=== PATIENT | male | born 1960 | race Caucasian/White ===

== ENCOUNTER 2016-03-23 10:10 | Emergency (ER) | payer OTHER ==
[2016-03-23 10:19] VITALS: TEMP 97.5
[2016-03-23] MEDS ORDERED: DIPH,PERTUS(ACELL)TETVAC-LF 0.5 ML VIAL IM ONE (10:27)
--- NOTE | 2016-03-23 11:12 | ED ---
General Adult HPI - General Chief complaint: Wound/Laceration Stated complaint: eye injury Time Seen by Provider: 03/23/16 10:23 Source: patient, RN notes reviewed, old records reviewed Mode of arrival: ambulatory Limitations: no limitations - History of Present Illness Initial comments: Chief complaint history of present illness a 55-year-old male reports that he was hit in the left eye and upper cheek with a hockey puck while playing hockey actually 90 minutes ago. The patient presents with a Thomas laceration 2 cm below the left eye. The patient has significant swelling around the upper and lower lids. The patient was asked to open the lids with his fingers. There is evidence of home people and hyphema. Patient states he can only see light at this time. - Related Data Home Medications Medication Instructions Recorded Confirmed Insulin Aspart [NovoLOG] See Protocol SQ AC-TID 10/29/15 03/23/16 Insulin Glargine [Lantus] 22 unit SQ HS 10/29/15 03/23/16 Levothyroxine Sodium [Synthroid] 175 mcg PO DAILY 10/29/15 03/23/16 Allergies Allergy/AdvReac Type Severity Reaction Status Date / Time No Known Allergies Allergy Verified 03/23/16 10:26 Review of Systems ROS Statement: Those systems with pertinent positive or pertinent negative responses have been documented in the HPI. Review of systems patient has pain around the left eye he has what appears to be a bone pupil patient will have a stat CAT scan of the orbits. Patient will have the tooth mL laceration cleaned and sutured patient be transferred to an eye [place] for further evaluation and management can be performed. Patient denies any other problems denies any chest pain shortness breath GI/ problems. All systems were otherwise reviewed. Past medical problems diabetes and thyroid disorder. Review of her past chart proximally one year ago the patient was hit just below the left eye with a hockey stick that laceration was repaired. He declined CAT scan of the eye at that time but there was no report of orbital injury. Patient states he has been to the [facility] [place] in [place] because of a detached retina he thinks was on the right eye. Past problems include orthopedic surgeries well. Denies any ALLERGIES. Nonsmoker. ROS Other: All systems not noted in ROS Statement are negative. Past Medical History Past Medical History: Diabetes Mellitus, Thyroid Disorder History of Any Multi-Drug Resistant Organisms: None Reported Past Surgical History: Orthopedic Surgery Past Psychological History: No Psychological Hx Reported Smoking Status: Never smoker Past Alcohol Use History: None Reported Past Drug Use History: None Reported General Exam - General Exam Comments Initial Comments: General: The patient is awake and alert, with a severe left eye injury from a hockey puck within the past 90 minutes. Patient advised not to touch his eye ball. Vital signs show temperature 97.5 pulse 70 respiratory rate 20 pulse ox 90% room air blood pressure 133/81 elevated systolic noted. The patient is in pain. Eye: Examination of the eyes find a ride to be normal. Left eye has a laceration on the cheek approximately 2 cm below the eyeball. His upper and lower lids have significant hematoma causing to stay shut. The patient cried lids up and down so directed examination to be made of the eye. Evidence of blown pupil and hyphema. Patient states she's not able to count fingers but he can see the light being shined into his eye. Ears, nose, mouth and throat: Laceration left cheek. Neck: The neck is supple, no complaint of neck pain. Cardiovascular: No complaint chest pain or palpitations. Respiratory: No wheezing, no coughing, no complaint of shortness of breath Gastrointestinal: No complaint of any nausea vomiting or abdominal pain. Back: No back pain Musculoskeletal: Upper and lower extremities normal full range of motion without pain or problems. Neurological: No neuro deficits. Limitations: no limitations Course Vital Signs 03/23/16 10:17 Temperature 97.5 F L Pulse Rate 70 Respiratory 20 Rate Blood Pressure 133/81 O2 Sat by Pulse 98 Oximetry Procedures - Procedures Initial comment: Procedure; 1% Xylocaine was used to numb the 2 cm laceration under the left eyelid. Clean washed with Betadine. Wound edges were approximated with 5 sutures simple, 6-0 nylon. Hemostasis obtained. Sutures out in [address] Sales Medical Decision Making - Medical Decision Making Medical decision making; patient had CAT scan of his facial bones specifically the orbits. The radiologist's final impression is moderate to severe left- sided preseptal hematoma. Left lens dislocation is noted. No acute orbital wall fracture identified. #2 age indeterminant zygomatic arch fractures bilaterally, suspect old. Cannot exclude nondisplaced acute linear fracture anterolateral left maxillary sinus wall. As read by Dr. salas Medical decision-making [facility] was called and spoke with Thad Grace who accepts the patient for transfer to the facility for evaluation and treatment of a severe left eye injury. CAT scan report was referred concerning the left lens dislocation but no acute orbital floor fracture. The patient can see only light. Patient's laceration was repaired. Patient be kept nothing by mouth for short ride down and then disposition will be determined at that [facility]. Disposition Clinical Impression: Traumatic injury of globe of left eye, Laceration of cheek Disposition: OTHER INSTITUTION NOT DEFINED Condition: Serious Additional Instructions: Patient be transferred directly depressed [facility] for evaluation and management of a severe left globe injury - Out of Hospital Transfer - Req. Specs Out of Hospital Transfer - Requested Specifics: Other Emergency Center ([facility])
--- NOTE | 2016-03-23 11:41 | CT ---
EXAMINATION TYPE: CT orbits wo con DATE OF EXAM: 03/23/2016 11:09 AM COMPARISON: NONE HISTORY: Lt eye injury with pain CT DLP: 339.4 mGycm Automated exposure control for dose reduction was used. FINDINGS: Nasal bones and bridge are intact. Nasal septum is deviated to right of midline in the deep inferior aspect without acute fracture. There is nondisplaced fracture involving right zygomatic arch age indeterminate. There is minimally d isplaced comminuted fracture left zygomatic arch is age indeterminate without distinct soft tissue sw elling at this level. The orbital floors and pratt are intact bilaterally. There is marked preseptal hematoma on the left. There is left-sided lens dislocation into the posterior chamber. The lens shape is maintained. Intrac onal fat is preserved bilaterally. Suspect nondisplaced comminuted fracture involving the anterolateral left maxillary sinus wall with s ome asymmetric lucent areas identified. There is 1 cm mucous retention cyst or polyp in the posterior left maxillary sinus. Remainder paranasal sinuses are clear. IMPRESSION: 1. MODERATE TO SEVERE LEFT-SIDED PRESEPTAL HEMATOMA. LEFT LENS DISLOCATION IS NOTED. NO ACUTE ORBITAL WALL FRACTURE IDENTIFIED. 2. AGE-INDETERMINATE ZYGOMATIC ARCH FRACTURES BILATERALLY, SUSPECTED OLD. CANNOT EXCLUDE NONDISPLACED ACUTE LINEAR FRACTURE ANTEROLATERAL LEFT MAXILLARY SINUS WALL.
[2016-03-23 12:27] VITALS: BP 153/89; PULSE 49; RESP 15
== END 2016-03-23 13:08 | disposition other institution (70) ==
LOC: EC 10:10
DX: S01.412A Laceration without foreign body of left cheek and temporomandibular area, initial encounter (principal); S05.12XA Contusion of eyeball and orbital tissues, left eye, initial encounter; H57.04 Mydriasis; W21.220A Struck by ice hockey puck, initial encounter; Y93.22 Activity, ice hockey; E07.9 Disorder of thyroid, unspecified; E11.9 Type 2 diabetes mellitus without complications; Z79.4 Long term (current) use of insulin; Z23 Encounter for immunization
CPT/HCPCS: 12011; 70480; 90471; 99285

== ENCOUNTER 2017-11-12 09:42 | Emergency (ER) | payer OTHER, MEDICARE ==
[2017-11-12 09:54] VITALS: RESP 18
[2017-11-12] MEDS ORDERED: HYDROcodone/APAP 7.5-325MG 1 EACH TAB PO ONE (10:24)
--- NOTE | 2017-11-12 10:44 | ED ---
Back Pain HPI - General Chief Complaint: Back Pain/Injury Stated Complaint: back injury Time Seen by Provider: 11/12/17 09:54 Source: patient Limitations: no limitations - History of Present Illness Initial Comments: 57-year-old male with past medical history of type 1 diabetes and hypothyroidism presenting today for chief complaint of left-sided rib pain. Patient states that there is a night he was at hockey when he was hit in the left lower back with a stick. Patient noticed immediate pain however he states he did not fall and continue play that evening. Patient denies any shortness of breath. Pain does admit to pain with deep inspiration at the location of contact with sick. Patient denies chest pain. Patient states the pain has been increasing for the past 2 days, making it difficult to sleep laying on the left side. Patient states that his felt the area where he was hit with a stick and felt as though there was "a loose rib", she could hear crunching. Patient denies any recent fever, chills, shortness of breath, low back pain, abdominal pain, nausea or vomiting, numbness or tingling, dysuria or hematuria, constipation or diarrhea, headaches or visual changes, or any other complaints. Patient denies taking any pain medication for the pain. Upon arrival pt VS WNL , 99% on RA. - Related Data Home Medications Medication Instructions Recorded Confirmed Insulin Aspart [NovoLOG] See Protocol SQ AC-TID 10/29/15 03/23/16 Insulin Glargine [Lantus] 22 unit SQ HS 10/29/15 03/23/16 Levothyroxine Sodium [Synthroid] 175 mcg PO DAILY 10/29/15 03/23/16 Previous Rx's Medication Instructions Recorded Ibuprofen [Motrin] 800 mg PO Q6H PRN 7 Days #28 tab 11/12/17 Allergies Allergy/AdvReac Type Severity Reaction Status Date / Time No Known Allergies Allergy Verified 11/12/17 09:54 Review of Systems ROS Statement: Those systems with pertinent positive or pertinent negative responses have been documented in the HPI. ROS Other: All systems not noted in ROS Statement are negative. Constitutional: Denies: fever, chills, night sweats ENT: Denies: ear pain, throat pain Respiratory: Denies: cough, dyspnea, wheezes, hemoptysis, stridor Cardiovascular: Denies: chest pain, palpitations, dyspnea on exertion Endocrine: Denies: fatigue Gastrointestinal: Denies: abdominal pain, nausea, vomiting, diarrhea, constipation, hematemesis, melena, hematochezia Genitourinary: Denies: urgency, dysuria, frequency, hematuria, discharge Musculoskeletal: Reports: as per HPI (left sided midback pain increases with palpatino), myalgia (at site of contact with stick left midback) Skin: Denies: rash, lesions Neurological: Denies: headache, weakness, numbness, paresthesias, confusion ( left sided low back pain reproducible to pain ) Past Medical History Past Medical History: Diabetes Mellitus, Thyroid Disorder History of Any Multi-Drug Resistant Organisms: None Reported Past Surgical History: Orthopedic Surgery Additional Past Surgical History / Comment(s): eye surgery Past Psychological History: No Psychological Hx Reported Smoking Status: Never smoker Past Alcohol Use History: None Reported Past Drug Use History: None Reported General Exam - General Exam Comments Initial Comments: General: The patient is awake and alert, in no distress, and does not appear acutely ill. Eye: Pupils are equal, round and reactive to light, extra-ocular movements are intact. No nystagmus. There is normal conjunctiva bilaterally. No signs of icterus. Ears, nose, mouth and throat: There are moist mucous membranes and no oral lesions. Neck: The neck is supple, there is no tenderness or JVD. Cardiovascular: There is a regular rate and rhythm. No murmur, rub or gallop is appreciated. Respiratory: Lungs are clear to auscultation, respirations are non-labored, breath sounds are equal. No wheezes, stridor, rales, or rhonchi. Gastrointestinal: Soft, non-distended, non-tender abdomen without masses or organomegaly noted. There is no rebound or guarding present. No CVA tenderness. Bowel sounds are unremarkable. Musculoskeletal: Normal ROM, no tenderness. Strength 5/5. Sensation intact. Pulses equal bilaterally 2+. Neurological: A&O x 3. CN II-XII intact, There are no obvious motor or sensory deficits. Coordination appears grossly intact. Speech is normal. Skin: Skin is warm and dry and no rashes or lesions are noted. No ecchymosis, erythema of the back upon inspection however there is pain to palpation left mid back along the ribs laterally. Psychiatric: Cooperative, appropriate mood & affect, normal judgment. Limitations: no limitations Course Vital Signs 11/12/17 09:51 Temperature 98 F Pulse Rate 65 Respiratory 18 Rate Blood Pressure 128/84 O2 Sat by Pulse 99 Oximetry Medical Decision Making - Medical Decision Making Pt given [place] for pain mgmt. CXR and left sided ribs XR obtained revealing no definitive rib fracture, XR reviewed by myself and Dr. Castellano who agrees with impression. Given hx and symptoms I feel pt has a rib contusion from trauma. Patient was given instruction to ice area take ibuprofen and Tylenol for pain management as needed. Patient was given prescription for ibuprofen 800mg. She agrees the plan. Patient discharged in stable condition. Disposition Clinical Impression: Rib contusion Disposition: HOME SELF-CARE Condition: Good Instructions: Rib Contusion (ED) Additional Instructions: Please use medication as discussed. Please follow-up with family doctor in the next 2 days of symptoms have not improved. Please return to emergency room if the symptoms increase or worsen or for any other concerns, as discussed. Prescriptions: Ibuprofen [Motrin] 800 mg PO Q6H PRN 7 Days #28 tab PRN Reason: Pain Is patient prescribed a controlled substance at d/c from ED?: No Referrals: [facility] [Primary Care Provider] - 1-2 days Time of Disposition: 12:35
--- NOTE | 2017-11-12 12:03 | XR ---
EXAMINATION TYPE: XR chest 2V DATE OF EXAM: 11/12/2017 HISTORY: Pain. REFERENCE: NONE. FINDINGS: The lungs are clear. Pleural space are clear. The heart is not enlarged. No displaced rib f racture is seen. No pneumothorax is seen. IMPRESSION: NORMAL CHEST.
--- NOTE | 2017-11-12 12:04 | XR ---
EXAMINATION TYPE: XR ribs LT , 4 VIEWS DATE OF EXAM ORDERED: 11/12/2017 HISTORY: Pain. COMPARISON: None. FINDINGS: There is a slight cortical irregularity involving the left third rib posterior laterally. No definite fracture is seen. The underlying lung is unremarkable. IMPRESSION: NO DEFINITE RIB FRACTURE.
[2017-11-12 12:45] VITALS: BP 130/82; PULSE 70; TEMP 98
== END 2017-11-12 12:45 | disposition home or self-care (01) ==
LOC: EC 09:42
DX: S20.212A Contusion of left front wall of thorax, initial encounter (principal); M54.5 Low back pain; E11.9 Type 2 diabetes mellitus without complications; E07.9 Disorder of thyroid, unspecified; Z79.4 Long term (current) use of insulin; Z79.899 Other long term (current) drug therapy; W21.210A Struck by ice hockey stick, initial encounter; Y93.22 Activity, ice hockey
CPT/HCPCS: 71046; 99283

== ENCOUNTER → 2021-03-04 | Outpatient (CLI) | payer OTHER ==
[2021-03-04 10:32] LABS: Basophils # (A) 0.1 k/uL (0-0.2); Basophils % (A) 1 %; Eosinophils # (A) 0.2 k/uL (0-0.7); Eosinophils % (A) 4 %; HCT 46.6 % (39.0-53.0); HGB 14.8 gm/dL (13.0-17.5); Lymphocytes # (A) 1.9 k/uL (1.0-4.8); Lymphocytes % (A) 32 %; MCH 31.8 pg (25.0-35.0); MCHC 31.7 g/dL (31.0-37.0); MCV 100.1 fL (80.0-100.0); Mean Platelet Volume 7.6; Monocytes # (A) 0.4 k/uL (0-1.0); Monocytes % (A) 7 %; Neutrophils # (A) 3.2 k/uL (1.3-7.7); Neutrophils % (A) 54 %; Platelet Count 387 k/uL (150-450); RBC 4.65 m/uL (4.30-5.90); RDW 12.9 % (11.5-15.5); WBC 5.9 k/uL (3.8-10.6)
[2021-03-04 10:48] LABS: ALT 26 U/L (4-49); AST 36 U/L (17-59); African American GFR (CKD) >90 (>60 ml/min/1.73 sqM); Albumin 4.9 g/dL (3.5-5.0); Alkaline Phosphatase 105 U/L (38-126); Anion Gap 10 mmol/L; Blood Urea Nitrogen 8 mg/dL (9-20); Calcium 10.1 mg/dL (8.4-10.2); Carbon Dioxide 29 mmol/L (22-30); Chloride 103 mmol/L (98-107); Glucose 83 mg/dL (74-99); Non-African American GFR(CKD) >90 (>60 ml/min/1.73 sqM); Potassium 4.8 mmol/L (3.5-5.1); Sodium 142 mmol/L (137-145); Total Bilirubin 0.8 mg/dL (0.2-1.3); Total Protein 8.9 g/dL (6.3-8.2)
--- NOTE | 2021-03-04 11:40 | CT ---
EXAMINATION TYPE: CT soft tissue neck wo/w con, CT chest w con DATE OF EXAM: 03/04/2021 HISTORY: Head and neck cancer. COMPARISON: NONE CT DLP: 1964 mGycm. Automated Exposure Control for Dose Reduction was Utilized. TECHNIQUE: CT scan of the neck is performed without and with IV Contrast (accession [id number]), with IV Contrast (accession [id number]), patient injected with 100ml mL of Isovue 300, axial images are obta ined, coronal and sagittal reformatted images are reviewed. CT scan thorax performed with IV contrast . FINDINGS: Neck: Airway: Heterogeneous thickened tissue at the base of tongue greater on the left first right side axi al image 34 series 7 for reference. This extends into the superior aspect of the vallecula as site of the laryngeal tonsils. Piriform sinuses inferior to this appear within normal limits. Somewhat small size thyroid gland. Mild emphysematous change of visualized upper lungs. Airway remains patent. Parotid/submandibular glands: Slight anterior displacement of left submandibular gland due to adjacen t masses or adenopathy. Carotid/Vascular Structures: Suboptimal bolus on postcontrast images Osseous Structures: Moderate disc space narrowing C5-C6 and C6-C7 levels. Other: Dependent fluid in the left maxillary sinus. Partial visualization of cortical victorino in the bilateral globes. Poor contrast bolus with multiple masses suspected adenopathy in the left neck, largest anteriorly a t level of hyoid bone measures 3.6 x 2.2 cm axial series 7 image 41. There is extension down to the s upraclavicular level on the left present with round 1.1 cm lymph node at level of thyroid gland axial image 59. CHEST: LUNGS: Mild underlying emphysematous change. No suspicious nodules or masses. Nonspecific 7 mm grades 1 thru 6 visiting teacher ior right upper lobe nodule axial image 26. There is 7 x 3 mm elongated nodule axial image 23 corresp onding to sagittal image 67. No pleural effusion or pneumothorax seen bilaterally. There is 3 mm poss ibly calcified nodule right upper lobe laterally axial image 18 MEDIASTINUM: There are no greater than 1 cm hilar or mediastinal lymph nodes. No cardiomegaly or pe ricardial effusion is seen. OTHER: Mild multilevel spurring in the thoracic spine. 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 Marked abnormal left-sided neck adenopathy noted as detailed above. Nonspecific r ight upper lung pulmonary nodules including a suspicious 7 mm right upper lobe pulmonary nodule. Advi se PET CT follow-up to further evaluate
== END | disposition home or self-care (01) ==
LOC: RADCTMAIN 09:51
PROVIDERS: ATTEND Internal Medicine Hematology & Oncology
DX: C76.0 Malignant neoplasm of head, face and neck (principal); C01 Malignant neoplasm of base of tongue; R91.8 Other nonspecific abnormal finding of lung field; R59.0 Localized enlarged lymph nodes; E03.9 Hypothyroidism, unspecified; E11.9 Type 2 diabetes mellitus without complications
CPT/HCPCS: 80053; 85025; 70492; 71260; 36415; Q9967

== ENCOUNTER → 2021-07-23 | Outpatient (CLI) | payer OTHER ==
--- NOTE | 2021-07-23 15:26 | PE ---
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 A localization and attenuation correction CT was also performed, small field-of -view images obtained through the head and neck. Correlation to outside PET/CT dated 01/04/2021 Average mediastinal uptake SUV 1.2, average liver uptake SUV 1.6 NECK and CHEST: There is marked improvement in the adenopathy seen on previous exam within the left n preet, no associated hypermetabolic uptake is present on today's exam along this distribution. There is some uptake present towards the region of the piriform sinus on the left is asymmetric, there is sammy e suggestion of soft tissue swelling at this level, SUV is 4.6. There is no evident lung mass. There is a subcentimeter nodule in the right upper lobe axial image #7 2, stable, additional lung nodule present axial image 84 the right upper lobe is stable. No associate d hypermetabolic uptake. There is no pleural or pericardial effusion. No endobronchial lesion. Anteri or left third rib shows some mild uptake, there may be nonunited fracture at the costochondral juncti on. SUV 7 2. No mediastinal, axillary, or hilar adenopathy, no evident supraclavicular adenopathy. ABDOMEN: There is no suspicious uptake. No evident liver mass or retroperitoneal adenopathy. No ascit es. Osseous structures show no suspicious uptake. IMPRESSION: Indeterminate uptake towards the base the tongue on the left as described, consider direc t visualization. There is improvement in patient's adenopathy.
== END | disposition home or self-care (01) ==
LOC: RADPETMAIN 08:24
PROVIDERS: ATTEND Radiology Radiation Oncology
DX: C01 Malignant neoplasm of base of tongue (principal); C77.0 Secondary and unspecified malignant neoplasm of lymph nodes of head, face and neck; Z79.899 Other long term (current) drug therapy
CPT/HCPCS: 78815; A9552

== ENCOUNTER 2021-09-02 11:21 | Emergency (ER) | payer OTHER ==
[2021-09-02 11:29] VITALS: BP 94/44; PULSE 67; RESP 16
[2021-09-02] MEDS ORDERED: SODIUM CHLORIDE 0.9% 1,000 ML IV ONE (11:41)
[2021-09-02] MEDS ORDERED: DEXTROSE 50% SYRINGE 50 ML IVP STA (11:46)
[2021-09-02 11:51] LABS: Glucose,Whole Blood 38 mg/dL (70-110)
--- NOTE | 2021-09-02 12:12 | ED ---
Altered Mental Status HPI - General Chief Complaint: Altered Mental Status Stated Complaint: Fall-Head injury,hypoglycemia Time Seen by Provider: 09/02/21 11:31 Source: patient, EMS, RN notes reviewed Mode of arrival: EMS Limitations: altered mental status - History of Present Illness Initial Comments: This a 61-year-old male presents emergency from EMS from home for altered mental status. Patient reportedly was diaphoretic most of the night, woke up very confused, having bizarre behavior which patient was crawling around on the floor hydrated in the bed, barking like a dog. Patient was loaded and EMS found to have blood sugar of 43 patient was given 1 amp of dextrose and symptoms resolved. It is noted the patient had a fall recently had some head trauma was not evaluated for this. Patient states he does remember having a trauma and states that he took 17 units of insulin last night. Patient states that he has no neck back chest or abdominal pain. Patient does not report any blood thinners. Patient found to be soaking when his clothes, hypothermic. - Related Data Home Medications Medication Instructions Recorded Confirmed INSULIN ASPART (NovoLOG) [NovoLOG] See Protocol SQ AC-TID 10/29/15 09/02/21 Insulin Glargine [Lantus] 24 unit SQ HS 10/29/15 09/02/21 Dorzolamide 2% [Trusopt 2%] 1 drops BOTH EYES BID 09/02/21 09/02/21 Levothyroxine Sodium [Synthroid] 200 mcg PO DAILY 09/02/21 09/02/21 Multivitamins, Thera [Multivitamin 1 tab PO DAILY 09/02/21 09/02/21 (formulary)] Allergies Allergy/AdvReac Type Severity Reaction Status Date / Time No Known Allergies Allergy Verified 09/02/21 14:07 Review of Systems ROS Statement: Those systems with pertinent positive or pertinent negative responses have been documented in the HPI. ROS Other: All systems not noted in ROS Statement are negative. Past Medical History Past Medical History: Diabetes Mellitus, Thyroid Disorder History of Any Multi-Drug Resistant Organisms: None Reported Past Surgical History: Orthopedic Surgery Additional Past Surgical History / Comment(s): eye surgery Past Psychological History: No Psychological Hx Reported Past Alcohol Use History: None Reported Past Drug Use History: None Reported General Exam Limitations: altered mental status General appearance: alert, in no apparent distress Head exam: Present: atraumatic, normocephalic, normal inspection Eye exam: Present: normal appearance, PERRL, EOMI, periorbital swelling, periorbital tenderness (Left periorbital tenderness, ecchymotic). Absent: scleral icterus, conjunctival injection ENT exam: Present: normal exam, normal oropharynx, mucous membranes moist Neck exam: Present: normal inspection, full ROM. Absent: tenderness, meningismus, lymphadenopathy Respiratory exam: Present: normal lung sounds bilaterally. Absent: respiratory distress, wheezes, rales, rhonchi, stridor Cardiovascular Exam: Present: regular rate, normal rhythm, normal heart sounds. Absent: systolic murmur, diastolic murmur, rubs, gallop, clicks GI/Abdominal exam: Present: soft, normal bowel sounds. Absent: distended, tenderness, guarding, rebound, rigid Neurological exam: Present: alert, oriented X3 Skin exam: Present: warm, dry, intact, normal color. Absent: rash Course Vital Signs 09/02/21 11:25 Pulse Rate 67 Respiratory 16 Rate Blood Pressure 94/44 O2 Sat by Pulse 100 Oximetry Medical Decision Making - Medical Decision Making 7-year-old male presented from for altered mental status, hypoglycemia. Patient found to be hypoglycemic in the 40s. Patient Was Given D50. Symptoms Resolved. Patient Did Have Prior Fall in Which She Had Some Acute Processes around His Left Eye. Patient Did Have CT Which Is Unremarkable. 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 Patient Has Extensive History of Cancer, Prior Radiation Chemotherapy. Patient Has Current Baseline Blood Sugar Is 160 Able Tolerate Oral Intake. Patient Was Discharged in Stable Condition Return Parameters Discussed. - Lab Data Result diagrams: 09/02/21 12:26 09/02/21 12:26 Lab Results 09/02/21 09/02/21 09/02/21 Range/Units 11:41 12:11 12:26 WBC 8.4 (3.8-10.6) k/uL RBC 3.97 L (4.30-5.90) m/uL Hgb 13.2 (13.0-17.5) gm/dL Hct 41.0 (39.0-53.0) % MCV 103.2 H (80.0-100.0) fL MCH 33.1 (25.0-35.0) pg MCHC 32.1 (31.0-37.0) g/dL RDW 12.7 (11.5-15.5) % Plt Count 317 (150-450) k/uL MPV 7.1 Neutrophils % 88 % Lymphocytes % 5 % Monocytes % 5 % Eosinophils % 1 % Basophils % 0 % Neutrophils # 7.4 (1.3-7.7) k/uL Lymphocytes # 0.4 L (1.0-4.8) k/uL Monocytes # 0.4 (0-1.0) k/uL Eosinophils # 0.1 (0-0.7) k/uL Basophils # 0.0 (0-0.2) k/uL Macrocytosis Slight PT (9.0-12.0) sec INR (<1.2) APTT (22.0-30.0) sec Sodium (137-145) mmol/L Potassium (3.5-5.1) mmol/L Chloride (98-107) mmol/L Carbon Dioxide (22-30) mmol/L Anion Gap mmol/L BUN (9-20) mg/dL Creatinine (0.66-1.25) mg/dL Est GFR (CKD-EPI)AfAm (>60 ml/min/1.73 sqM) Est GFR (CKD-EPI)NonAf (>60 ml/min/1.73 sqM) Glucose (74-99) mg/dL POC Glucose (mg/dL) 38 L 89 (70-110) mg/dL POC Glu Director Of Institutional Sales ID Yasmine Cruz Mehan Calcium (8.4-10.2) mg/dL Total Bilirubin (0.2-1.3) mg/dL AST (17-59) U/L ALT (4-49) U/L Alkaline Phosphatase (38-126) U/L Ammonia (<30) umol/L Troponin I (0.000-0.034) ng/mL Total Protein (6.3-8.2) g/dL Albumin (3.5-5.0) g/dL Serum Alcohol mg/dL 09/02/21 09/02/21 09/02/21 Range/Units 12:26 12:26 12:26 WBC (3.8-10.6) k/uL RBC (4.30-5.90) m/uL Hgb (13.0-17.5) gm/dL Hct (39.0-53.0) % MCV (80.0-100.0) fL MCH (25.0-35.0) pg MCHC (31.0-37.0) g/dL RDW (11.5-15.5) % Plt Count (150-450) k/uL MPV Neutrophils % % Lymphocytes % % Monocytes % % Eosinophils % % Basophils % % Neutrophils # (1.3-7.7) k/uL Lymphocytes # (1.0-4.8) k/uL Monocytes # (0-1.0) k/uL Eosinophils # (0-0.7) k/uL Basophils # (0-0.2) k/uL Macrocytosis PT 10.9 (9.0-12.0) sec INR 1.0 (<1.2) APTT 24.1 (22.0-30.0) sec Sodium 141 (137-145) mmol/L Potassium 3.8 (3.5-5.1) mmol/L Chloride 105 (98-107) mmol/L Carbon Dioxide 28 (22-30) mmol/L Anion Gap 8 mmol/L BUN 14 (9-20) mg/dL Creatinine 0.80 (0.66-1.25) mg/dL Est GFR (CKD-EPI)AfAm >90 (>60 ml/min/1.73 sqM) Est GFR (CKD-EPI)NonAf >90 (>60 ml/min/1.73 sqM) Glucose 101 H (74-99) mg/dL POC Glucose (mg/dL) (70-110) mg/dL POC Glu Director Of Institutional Sales ID Calcium 9.6 (8.4-10.2) mg/dL Total Bilirubin 0.5 (0.2-1.3) mg/dL AST 40 (17-59) U/L ALT 20 (4-49) U/L Alkaline Phosphatase 89 (38-126) U/L Ammonia (<30) umol/L Troponin I <0.012 (0.000-0.034) ng/mL Total Protein 8.0 (6.3-8.2) g/dL Albumin 4.9 (3.5-5.0) g/dL Serum Alcohol <10 mg/dL 09/02/21 09/02/2109/02/22 Range/Units 12:26 12:33 14:42 WBC (3.8-10.6) k/uL RBC (4.30-5.90) m/uL Hgb (13.0-17.5) gm/dL Hct (39.0-53.0) % MCV (80.0-100.0) fL MCH (25.0-35.0) pg MCHC (31.0-37.0) g/dL RDW (11.5-15.5) % Plt Count (150-450) k/uL MPV Neutrophils % % Lymphocytes % % Monocytes % % Eosinophils % % Basophils % % Neutrophils # (1.3-7.7) k/uL Lymphocytes # (1.0-4.8) k/uL Monocytes # (0-1.0) k/uL Eosinophils # (0-0.7) k/uL Basophils # (0-0.2) k/uL Macrocytosis PT (9.0-12.0) sec INR (<1.2) APTT (22.0-30.0) sec Sodium (137-145) mmol/L Potassium (3.5-5.1) mmol/L Chloride (98-107) mmol/L Carbon Dioxide (22-30) mmol/L Anion Gap mmol/L BUN (9-20) mg/dL Creatinine (0.66-1.25) mg/dL Est GFR (CKD-EPI)AfAm (>60 ml/min/1.73 sqM) Est GFR (CKD-EPI)NonAf (>60 ml/min/1.73 sqM) Glucose (74-99) mg/dL POC Glucose (mg/dL) 104 62 L (70-110) mg/dL POC Glu Director Of Institutional Sales ID Yasmine Cruz Kyle Calcium (8.4-10.2) mg/dL Total Bilirubin (0.2-1.3) mg/dL AST (17-59) U/L ALT (4-49) U/L Alkaline Phosphatase (38-126) U/L Ammonia 20 (<30) umol/L Troponin I (0.000-0.034) ng/mL Total Protein (6.3-8.2) g/dL Albumin (3.5-5.0) g/dL Serum Alcohol mg/dL 09/02/21 09/02/21 09/02/21 Range/Units 14:43 15:07 15:55 WBC (3.8-10.6) k/uL RBC (4.30-5.90) m/uL Hgb (13.0-17.5) gm/dL Hct (39.0-53.0) % MCV (80.0-100.0) fL MCH (25.0-35.0) pg MCHC (31.0-37.0) g/dL RDW (11.5-15.5) % Plt Count (150-450) k/uL MPV Neutrophils % % Lymphocytes % % Monocytes % % Eosinophils % % Basophils % % Neutrophils # (1.3-7.7) k/uL Lymphocytes # (1.0-4.8) k/uL Monocytes # (0-1.0) k/uL Eosinophils # (0-0.7) k/uL Basophils # (0-0.2) k/uL Macrocytosis PT (9.0-12.0) sec INR (<1.2) APTT (22.0-30.0) sec Sodium (137-145) mmol/L Potassium (3.5-5.1) mmol/L Chloride (98-107) mmol/L Carbon Dioxide (22-30) mmol/L Anion Gap mmol/L BUN (9-20) mg/dL Creatinine (0.66-1.25) mg/dL Est GFR (CKD-EPI)AfAm (>60 ml/min/1.73 sqM) Est GFR (CKD-EPI)NonAf (>60 ml/min/1.73 sqM) Glucose (74-99) mg/dL POC Glucose (mg/dL) 61 L 64 L 166 H (70-110) mg/dL POC Glu Director Of Institutional Sales ID Anjana, Suman Dolan, Suman Dolan, Suman Calcium (8.4-10.2) mg/dL Total Bilirubin (0.2-1.3) mg/dL AST (17-59) U/L ALT (4-49) U/L Alkaline Phosphatase (38-126) U/L Ammonia (<30) umol/L Troponin I (0.000-0.034) ng/mL Total Protein (6.3-8.2) g/dL Albumin (3.5-5.0) g/dL Serum Alcohol mg/dL Disposition Clinical Impression: Hypoglycemia Disposition: HOME SELF-CARE Condition: Stable Instructions (If sedation given, give patient instructions): Hypoglycemia in a Person with Diabetes (ED) Additional Instructions: Please return to the Emergency Department if symptoms worsen or any other concerns. Is patient prescribed a controlled substance at d/c from ED?: No Referrals: [facility],Clinic [Primary Care Provider] - 1-2 days Time of Disposition: 15:57
[2021-09-02 12:30] LABS: Glucose,Whole Blood 89 mg/dL (70-110)
[2021-09-02 12:35] LABS: Glucose,Whole Blood 104 mg/dL (70-110)
[2021-09-02 12:41] LABS: Basophils % (A) 0 %; Eosinophils # (A) 0.1 k/uL (0-0.7); Eosinophils % (A) 1 %; HGB 13.2 gm/dL (13.0-17.5); Lymphocytes # (A) 0.4 k/uL (1.0-4.8); Lymphocytes % (A) 5 %; MCH 33.1 pg (25.0-35.0); MCHC 32.1 g/dL (31.0-37.0); MCV 103.2 fL (80.0-100.0); Macrocytosis Slight; Mean Platelet Volume 7.1; Monocytes # (A) 0.4 k/uL (0-1.0); Monocytes % (A) 5 %; Neutrophils # (A) 7.4 k/uL (1.3-7.7); Neutrophils % (A) 88 %; Platelet Count 317 k/uL (150-450); RBC 3.97 m/uL (4.30-5.90); RDW 12.7 % (11.5-15.5); WBC 8.4 k/uL (3.8-10.6)
[2021-09-02 12:56] LABS: ALT 20 U/L (4-49); AST 40 U/L (17-59); African American GFR (CKD) >90 (>60 ml/min/1.73 sqM); Albumin 4.9 g/dL (3.5-5.0); Alcohol <10 mg/dL; Alkaline Phosphatase 89 U/L (38-126); Anion Gap 8 mmol/L; Blood Urea Nitrogen 14 mg/dL (9-20); Calcium 9.6 mg/dL (8.4-10.2); Carbon Dioxide 28 mmol/L (22-30); Chloride 105 mmol/L (98-107); Glucose 101 mg/dL (74-99); Non-African American GFR(CKD) >90 (>60 ml/min/1.73 sqM); Potassium 3.8 mmol/L (3.5-5.1); Sodium 141 mmol/L (137-145); Total Bilirubin 0.5 mg/dL (0.2-1.3)
[2021-09-02 13:04] LABS: Partial Thromboplastin Time 24.1 sec (22.0-30.0); Prothrombin Time 10.9 sec (9.0-12.0)
--- NOTE | 2021-09-02 13:27 | CT ---
EXAMINATION TYPE: CT brain cspine wo con CT DLP: 1367.2 mGycm, Automated exposure control for dose reduction was used. DATE OF EXAM: 09/02/2021 1:00 PM COMPARISON: PET/CT 07/23/2021, CT neck 03/04/2021 CLINICAL INDICATION:Male, 61 years old with history of pain; Fall, head injury, hypoglycemia TECHNIQUE: Brain: Multiple axial CT images of the brain were obtained without IV contrast. Cspine: Axial CT images from the skull base to the inferior aspect of T2 we obtained without intraven ous contrast. Coronal and sagittal reformatted images were also reviewed. FINDINGS: Brain: Extra-axial spaces: No abnormal extra-axial fluid collections. Ventricular system: Within normal limits Cerebral parenchyma: No acute intraparenchymal hemorrhage or mass effect. The reyes-white junction is well differentiated. Cerebellum: Unremarkable. Mass effect: No evidence of midline shift. Intracranial vasculature: unremarkable Soft tissues: Normal. Calvarium/osseous structures: No depressed skull fracture. Paranasal sinuses and mastoid air cells: The mastoid air cells are clear. Minimal because of thickeni ng of the left maxillary sinus. Visualized orbits: Postsurgical changes of both globes. Cervical spine: Fracture: None. Osseous structures: No suspicious osseous lesions. Vertebral alignment: Straightening of the cervical spine which may be due to patient position versus muscle spasm. Spinal canal/Neural Foramina: Mild degenerative changes of the cervical spine most pronounced at C6-C 7 with disc space narrowing, and plate sclerosis, and osteophytosis. Multilevel posterior disc osteop hyte complexes demonstrated without significant effacement of the anterior thecal sac. Neck soft tissues: Prevertebral soft tissues are within normal limits. Similar appearance of left nec k adenopathy and left tongue base soft tissue thickening related to known cancer. Evaluation is limit ed due to dental amalgam and lack of IV contrast. Other: The airway is patent. The lung apices are clear. IMPRESSION: No acute intracranial process. No evidence of cervical spine fracture. Mild multilevel degenerative disc disease. Similar appearance of left neck adenopathy and left tongue base soft tissue thickening related to kno wn cancer compared to prior PET/CT.
[2021-09-02 14:44] LABS: Glucose,Whole Blood 61 mg/dL (70-110)
[2021-09-02 14:44] LABS: Glucose,Whole Blood 62 mg/dL (70-110)
[2021-09-02 15:17] LABS: Glucose,Whole Blood 64 mg/dL (70-110)
[2021-09-02 15:56] LABS: Glucose,Whole Blood 166 mg/dL (70-110)
== END 2021-09-02 16:18 | disposition home or self-care (01) ==
LOC: EC 11:21
DX: E11.649 Type 2 diabetes mellitus with hypoglycemia without coma (principal); E07.9 Disorder of thyroid, unspecified; Z79.890 Hormone replacement therapy; Z79.4 Long term (current) use of insulin
CPT/HCPCS: 36415; 70450; 72125; 80053; 80320; 82140; 84484; 85025; 85610; 85730; 93005; 96361; 96374; 99285

== ENCOUNTER → 2023-08-07 | Outpatient (CLI) | payer OTHER ==
[2023-08-07 13:07] LABS: African American GFR (CKD) >90 (>60 ml/min/1.73 sqM); Blood Urea Nitrogen 15 mg/dL (9-20); Non-African American GFR(CKD) >90 (>60 ml/min/1.73 sqM)
--- NOTE | 2023-08-07 13:45 | CT ---
EXAMINATION TYPE: CT neck chest w con DATE OF EXAM: 08/07/2023 COMPARISON: Head CT 07/23/2021 HISTORY: tongue ca CT DLP: 971 mGycm CONTRAST: CT scan of the neck is performed with IV Contrast, patient injected with 100 mL of Isovue 300. Contrast enhanced CT of the neck was performed from the skull base through the lung apices. AIRWAY: The supraglottic, glottic, and subglottic portions of the airway appear patent and free of mass. No distinct mass of the tongue is identified on this examination. SALIVARY GLANDS: The submandibular and parotid glands are free of mass or inflammatory process. THYROID GLAND: No nodules or masses seen. LYMPH NODES: No adenopathy seen greater than 1cm. OTHER: Vascular structures are patent. No significant degenerative change of the cervical spine. N o abscess seen. IMPRESSION: No evidence for adenopathy or mass of the tongue this time. EXAMINATION TYPE: CT neck chest w con DATE OF EXAM: 08/07/2023 COMPARISON: Head CT 07/23/2021 HISTORY: tongue ca CT DLP: 971 mGycm Automated exposure control for dose reduction was used. CONTRAST: CT scan of the chest is performed with IV Contrast, patient injected with 100 mL of Isovue 300. FINDINGS: LUNGS: There is a large left upper lobe mass measuring 11 x 4 x 12.1 x 7.5 cm with associated volume loss and obstruction of the left upper lobe bronchus. The findings are felt to reflect neoplasm until proven otherwise. Pleural-based nodular density right lower lobe measures 8.3 cm. No additional nodu les or masses are present. MEDIASTINUM: Precarinal adenopathy measures 1.6 cm. Subcarinal adenopathy measures 4.3 x 2.7 cm. Left hilar adenopathy measures 3.6 cm. . No pericardial effusion is seen. Thoracic aorta is of normal caliber. The heart is not enlarged. UPPER ABDOMEN: No significant abnormality appreciated. OTHER: No additional significant abnormality is seen. IMPRESSION: 1. Enlarged left upper lobe mass as discussed above with near complete obstruction of the left upper lobe bronchus and mediastinal and hilar adenopathy. Findings are felt to reflect malignancy until pro tracy otherwise.
== END | disposition home or self-care (01) ==
LOC: RADCTMAIN 12:21
PROVIDERS: ATTEND Radiology Radiation Oncology
DX: C77.0 Secondary and unspecified malignant neoplasm of lymph nodes of head, face and neck (principal); R91.8 Other nonspecific abnormal finding of lung field; C01 Malignant neoplasm of base of tongue; Z85.810 Personal history of malignant neoplasm of tongue; Z92.21 Personal history of antineoplastic chemotherapy; Z79.899 Other long term (current) drug therapy
CPT/HCPCS: 82565; 84520; 70491; 71260; 36415; Q9967

== ENCOUNTER 2023-08-31 10:56 | Day surgery (SDC) | payer OTHER ==
[2023-08-30 10:46] VITALS: BMI 22.7
[~2023-08-31 10:56] MED LIST: LACTATED RINGERS 1,000 ML IV SCH; LIDOCAINE 1% (10MG/ML) FOR IV START INTRADERMA PRN
[2023-08-31 11:29] VITALS: TEMP 97
[2023-08-31] MEDS: IV FLUID CONTINUATION 1,000 ML IV ONE (11:30)
[2023-08-31] MEDS: LACTATED RINGERS 1,000 ML IV SCH (11:40)
[2023-08-31 11:42] LABS: Glucose,Whole Blood 216 mg/dL (70-110)
[2023-08-31] MEDS ORDERED: PROPOFOL 10 MG/ML 20 ML VIAL IV ONE (12:26)
[2023-08-31] MEDS ORDERED: LIDOCAINE 2% (PF) 20 MG/ML 5 ML VIAL ONE (12:26)
[2023-08-31] MEDS ORDERED: SUCCINYLCHOLINE CHLORIDE 200 MG/10 ML VIAL IV ONE (12:26)
[2023-08-31] MEDS ORDERED: fentaNYL (PF) 50 MCG/ML 2 ML AMP ONE (12:26)
[2023-08-31 14:02] LABS: Glucose,Whole Blood 229 mg/dL (70-110)
--- NOTE | 2023-08-31 14:17 | P.PCN ---
Date of Procedure: 08/31/23 Preoperative Diagnosis: Left upper lobe mass Mediastinal lymphadenopathy Postoperative Diagnosis: Left upper lobe mass causing significant obstruction of the anterior segment of the left upper lobe and the superior segment of the lingula due to extrinsic compression and endobronchial involvement Mediastinal lymphadenopathy involving the station 7 and station 10 lymph nodes. Procedure(s) Performed: Flexible bronchoscopy Airway inspection and examination Fluoroscopic guided left upper lobe transbronchial endobronchial biopsies in addition to fluoroscopic guided endobronchial brushing and endobronchial lavage of the left upper lobe Endobronchial ultrasound Endobronchial ultrasound-guided transbronchial needle aspirate of station 7 and station 10 L lymph nodes. Anesthesia: GETA Surgeon: Alonso Wright Estimated Blood Loss (ml): 0 Pathology: other Condition: stable Disposition: same day Operative Findings: This is a flexible bronchoscopy and endobronchial ultrasound and the procedure was done in the endoscopy suite under general anesthesia. The patient was intubated and placed on mechanical ventilator in the usual fashion without any complications. Following intubation, adequate oxygenation ventilation was achieved and the procedure was started. The flexor bronchoscope was inserted for airway inspection. I easily passed the bronchoscope through the orotracheal tube and advanced it into the lower trachea. Examination of the distal trachea, main ayse, bilateral mainstem bronchi, right upper lobe bronchus, bronchus and medius, right middle lobe and right lower lobe bronchus and the various 10 segments on the right were within normal limits. The bronchoscope was then moved to the left and the left lower lobe bronchus was patent and within normal limits. The left upper lobe bronchus was patent and there was significant narrowing and evidence of endobronchial tumor within the anterior segment of the left upper lobe and lingular segment of the left upper lobe. The involved segment was the superior segment of the lingula and the anterior segment of the left upper lobe. As mentioned, the airways were considerably narrowed and tapering off distally with evidence of endobronchial tumor within the airways. Under direct visualization, endobronchial biopsies were obtained following the transbronchial biopsy of the left upper lobe was done through the anterior segment of the left upper lobe. Following that, endobronchial brushings of the left upper lobe was done endobronchial lavage of the left upper lobe was completed with a total of 100 cc of saline was infused and 20 cc was aspirated without any major difficulties. No bleeding was encountered Following that, the flexor bronchoscope was removed and the endobronchial ultrasound was inserted. Careful examination of the base of the mediastinal stations was done. There was a bulky subcarinal lymph node station 7 measuring more than 4 cm in size. There was another bulky lymph node measuring more than 3 cm in the left hilum station 10 location. The rest of the mediastinal stat ions were free of any significant lymphadenopathy. Using a 22-gauge VISI shot needle, transbronchial needle aspirate of the subcarinal lymph node was done, a total of 5 passes and transbronchial needle aspirates of the left hilar lymph node was done, station 10 L, a total of 5 passes. No endobronchial bleeding was encountered. The procedure was successful. The endobronchial ultrasound was removed. The flexible bronchoscope was reinserted and therapeutic airway suctioning was done. The flexible bronchoscope was removed. The patient was extubated and transferred to recovery in stable condition.
[2023-08-31 14:34] VITALS: RESP 18
[2023-08-31 14:56] VITALS: BP 141/79; PULSE 67
--- NOTE | 2023-09-01 09:13 | FL ---
Fluoroscopy INDICATION: Fluoroscopy FINDINGS: Fluoroscopy time: 18 seconds. Total dose area product (DAP) in uGy*m?, mGy*cm? (or similar): 0.56459 Images obtained: 1. IMPRESSION: 1. Documentation of fluoroscopy.
== END 2023-08-31 15:16 | disposition home or self-care (01) ==
LOC: ORWHC2ENDO 10:56
PROVIDERS: ATTEND Internal Medicine Critical Care Medicine
DX: C34.12 Malignant neoplasm of upper lobe, left bronchus or lung (principal); R59.0 Localized enlarged lymph nodes; E11.39 Type 2 diabetes mellitus with other diabetic ophthalmic complication; J44.9 Chronic obstructive pulmonary disease, unspecified; E03.9 Hypothyroidism, unspecified; H40.9 Unspecified glaucoma; Z85.810 Personal history of malignant neoplasm of tongue; Z79.4 Long term (current) use of insulin; Z79.890 Hormone replacement therapy
CPT/HCPCS: 87798 ×3; 87496; 87498; 87529; 88104; 88305; 88342; 87502; 87634; 88341; 87070; 87205; 87116; 87102; 87206; 87635; 31628; 31623; 31624; 31652; J0330; J3010; J2704; J2001; 31629

== ENCOUNTER → 2023-09-19 | Outpatient (CLI) | payer OTHER ==
--- NOTE | 2023-09-19 22:42 | MR ---
EXAMINATION TYPE: MR brain wo/w con DATE OF EXAM: 09/19/2023 5:19 PM CLINICAL INDICATION:Male, 63 years old with history of C34.12,C01,Z08,Z85.810, Z92.21; PHH, Lung canc er evaluate for metastatic disease, Abnormal CT neck/chest, Hx Tongue cancer 2020 COMPARISON: 09/03/2019 TECHNIQUE: Multi planar, multi sequence imaging was performed through the brain including: T1, T2, In version recovery, susceptibility weighted imaging and gradient echo imaging and Diffusion weighted im aging. The patient was then given intravenous contrast and multi planar, T1 fat-saturation images wer e obtained. IV Contrast: 6.5 cc Gadavist FINDINGS: The reyes-white junctions, ventricular system, basal cisterns appear unremarkable. Diffusion-weighted imaging shows no evidence of restricted diffusion to suggest acute/subacute infarct. Intracranial ar terial flow voids are maintained. Midline structures show no abnormality. . The susceptibility weight ed images do not reveal any evidence for micro-hemorrhage. After administration of gadolinium, no abn ormal enhancement is seen. Edouard cisterna magna is present. The bone marrow signal is within normal limits. Paranasal sinuses and mastoid air cells: Mild scattered paranasal sinus disease. Visualized orbits: Posttreatment changes to the globes bilaterally. IMPRESSION: No evidence of intracranial mass, acute/subacute infarct, or abnormal enhancement.
== END | disposition home or self-care (01) ==
LOC: RADMRIMAIN 16:14
PROVIDERS: ATTEND Radiology Radiation Oncology
DX: C34.12 Malignant neoplasm of upper lobe, left bronchus or lung (principal); C01 Malignant neoplasm of base of tongue; Z08 Encounter for follow-up examination after completed treatment for malignant neoplasm; Z85.810 Personal history of malignant neoplasm of tongue; Z92.21 Personal history of antineoplastic chemotherapy
CPT/HCPCS: 70553; A9585

== ENCOUNTER → 2023-09-21 | Outpatient (CLI) | payer OTHER ==
--- NOTE | 2023-09-21 15:59 | PE ---
EXAMINATION TYPE: PET CT fusion skull to thigh DATE OF EXAM: 09/21/2023 CLINICAL INDICATION:Male, 63 years old with history of C34.12 MALIGNANT NEOPLASM OF UPPER LOBE, LEFT BRON; TECHNIQUE: Following the intravenous administration of 11.18 mCi of F-18 FDG, whole body images are performed from the skull base to the midthigh. Images are reviewed on the computer in the coronal, axial, and sagittal planes. Reconstructed rotating images are created on independent workstation and reviewed on the computer. A non-contrast CT is performed in conjunction with the PET scan. Glucose level 177 mg/dL CT DLP: 272 mGycm, Automated exposure control for dose reduction was used. COMPARISON: CT 08/07/2023, 03/04/2021, PET/CT 07/23/2021, MRI: 09/19/2023 FINDINGS: Mediastinal SUV mean is 1.9. Hepatic parenchyma SUV mean is 2.2. SKULL BASE AND NECK: No suspicious radiotracer activity. CHEST, MEDIASTINUM, AND HILAR REGION: Increased size of solid mass identified within the left upper lobe and lingula with surrounding atele ctasis grossly measuring 12.4 x 8.9 cm. This extends into the pulmonary hilum. This mass demonstrate a maximum SUV of 9.0. Stable posterior right upper lobe 9 mm pulmonary nodule back to 2021 exam (series 3, image 80). Does not demonstrate FDG activity again. Left hilar adenopathy demonstrated maximum SUV of 7.4. Mediastinal lymphadenopathy with examples including a right paratracheal superior mediastinal lymph n ode measuring 2.2 cm with a maximum SUV of 8.1. Additional example includes a subcarinal 2.9 cm lymph node with a maximum SUV of 7.8. Right supraclavicular FDG avid lymph node with a maximum SUV of 6.8. Right pulmonary hilum FDG avid lymph nodes measuring up to maximum 6.1 SUV. There are 5 distinct soft tissue focal FDG avid regions along the left inferior pleural surface abutt ing the posterior 9-12th ribs measuring up to 3.7 cm with a maximum SUV of 6.6. ABDOMEN AND PELVIS: No suspicious radiotracer activity. MUSCULOSKELETAL STRUCTURES: No suspicious radiotracer activity. OTHER CT: Bilateral scleral victorino. Small left pleural effusion. Mild atherosclerotic calcification of the aorta and its branches. Healed right lateral seventh through ninth rib fractures. Calcificatio n of bilateral vas deferens. IMPRESSION: Findings most consistent with large left upper lobe FDG avid primary lung cancer with metastatic FDG avid mediastinal/right supraclavicular and bilateral hilar adenopathy. Additional left inferior pleur al surface FDG avid metastatic nodules.
== END | disposition home or self-care (01) ==
LOC: RADPETMAIN 13:12
PROVIDERS: ATTEND Radiology Radiation Oncology
DX: C34.12 Malignant neoplasm of upper lobe, left bronchus or lung (principal); R91.8 Other nonspecific abnormal finding of lung field; Z85.810 Personal history of malignant neoplasm of tongue; Z92.21 Personal history of antineoplastic chemotherapy; Z79.899 Other long term (current) drug therapy
CPT/HCPCS: 78815; A9552

== ENCOUNTER 2023-12-15 18:05 | Inpatient (IN) | payer OTHER, MEDICARE ==
[2023-12-15] MEDS: HEPARIN SODIUM 1,000 UN/ML (10ML VL) IV ONE (19:21)
[2023-12-15] MEDS: HEPARIN SOD,PORK IN 0.45% NACL 25,000 UNIT in 0.45% NACL 1 250ML.BAG IV SCH (19:22)
--- NOTE | 2023-12-15 19:30 | ED ---
General Adult HPI - General Chief complaint: Shortness of Breath Stated complaint: SOB Time Seen by Provider: 12/15/23 18:30 Source: patient, RN notes reviewed, old records reviewed Mode of arrival: ambulatory Limitations: no limitations - History of Present Illness Initial comments: This is a 63-year-old male who presents to the emergency department with a past medical history significant for neck cancer and he states that he has cancer now in the lung and they believe it is metastatic from the previous neck cancer which she was treated for back in 2019. Patient states lately has been receiving chemotherapy and he went to see his doctor today and they sent him in to get a CAT scan. The CAT scan shows large mass in the left lung with a large pleural effusion along with a small PE in the right lung. Patient denies any chest pain but does state he has significant shortness of breath particularly with movement. - Related Data Home Medications Medication Instructions Recorded Confirmed INSULIN ASPART (NovoLOG) [NovoLOG] See Protocol SQ AC-TID 10/29/15 08/31/23 Insulin Glargine [Lantus] 22 unit SQ HS 10/29/15 08/31/23 Dorzolamide 2% [Trusopt 2%] 1 drops BOTH EYES BID 09/02/21 08/31/23 Multivitamins, Thera [Multivitamin 1 tab PO DAILY 09/02/21 08/31/23 (formulary)] HYDROcodone/APAP 7.5-325MG [[place] 1 tab PO BID PRN 08/30/23 08/31/23 7.5-325] Levothyroxine Sodium [Synthroid] 175 mcg PO DAILY 08/30/23 08/31/23 Allergies Allergy/AdvReac Type Severity Reaction Status Date / Time No Known Allergies Allergy Verified 08/31/23 11:24 Review of Systems ROS Statement: Those systems with pertinent positive or pertinent negative responses have been documented in the HPI. ROS Other: All systems not noted in ROS Statement are negative. 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 CT SCAN SHOWING MASS LT LUNG. HAVING SOB History of Any Multi-Drug Resistant Organisms: None Reported Past Surgical History: Orthopedic Surgery Additional Past Surgical History / Comment(s): eye surgery-BILAT GLAUCOMA. 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 AGO LT EYE Past Anesthesia/Blood Transfusion Reactions: No Reported Reaction Past Psychological History: No Psychological Hx Reported Smoking Status: Never smoker - Past Family History Mother Family Medical History: No Reported History General Exam - General Exam Comments Initial Comments: GENERAL: Patient is well-developed and well-nourished. Patient is nontoxic and well- hydrated and is in mild distress. ENT: Neck is soft and supple. No significant lymphadenopathy is noted. Oropharynx is clear. Moist mucous membranes. Neck has full range of motion without eliciting any pain. EYES: The sclera were anicteric and conjunctiva were pink and moist. Extraocular movements were intact and pupils were equal round and reactive to light. Ey elids were unremarkable. PULMONARY: Patient has diminished breath sounds in the left lung CARDIOVASCULAR: There is a regular rate and rhythm without any murmurs gallops or rubs. ABDOMEN: Soft and nontender with normal bowel sounds. SKIN: Skin is clear with no lesions or rashes and otherwise unremarkable. NEUROLOGIC: Patient is alert and oriented x3. Cranial nerves II through XII are grossly intact. Motor and sensory are also intact. Normal speech, volume and content. Symmetrical smile. MUSCULOSKELETAL: Normal extremities with adequate strength and full range of motion. No lower extremity swelling or edema. No calf tenderness. LYMPHATICS: No significant lymphadenopathy is noted PSYCHIATRIC: Normal psychiatric evaluation. Limitations: no limitations Course Vital Signs 12/15/23 12/15/23 18:21 18:36 Temperature 97.3 F L Pulse Rate 94 Respiratory 20 18 Rate Blood Pressure 160/92 O2 Sat by Pulse 97 Oximetry Medical Decision Making - Medical Decision Making EKG is interpreted by myself. EKG is a sinus rhythm at 92 bpm NC was 156 QRS is 86 QT interval 310 QTc is 360. Patient's EKG shows no ST segment elevation or depression. Was pt. sent in by a medical professional or institution (, PA, PERCUSSION INSTRUMENT TUNER, urgent care, hospital, or care home...) When possible be specific @ -Patient was sent to the emergency department by his oncologist Did you speak to anyone other than the patient for history (EMS, parent, family, police, friend...)? What history was obtained from this source @ -No Did you review nursing and triage notes (agree or disagree)? Why? @ -I reviewed and agree with nursing and triage notes Were old charts reviewed (outside hosp., previous admission, EMS record, old EKG, old radiological studies, urgent care reports/EKG's, care home records)? Report findings @ -No old charts were reviewed Differential Diagnosis? @ -Differential Dyspnea: Coronary syndrome, arrhythmia, tamponade, asthma, COPD, pulmonary embolism, pneumonia, pneumothorax, pulmonary effusion, anaphylaxis, diabetic ketoacidosis, flailed chest, pulmonary contusion, diaphragmatic rupture, anemia, neuromuscular, this is not meant to be an all-inclusive list. EKG interpreted by me (3pts min.). @ -As above X-rays interpreted by me (1pt min.). @ -None done CT interpreted by me (1pt min.). @ -Patient had an outpatient CT scan which I reviewed and it showed a massive pleural effusion on the left and a small pleural effusion on the right it also showed a large tumor on the left. And the CAT scan also showed a pulmonary embolism. U/S interpreted by me (1pt. min.). @ -None done What testing was considered but not performed or refused? (CT, X-rays, U/S, labs)? Why? @ -None What meds were considered but not given or refused? Why? @ -None Did you discuss the management of the patient with other professionals (professionals i.e. , PA, PERCUSSION INSTRUMENT TUNER, lab, RT, psych nurse, social service manager, pension adviser, teacher, earth science technical officer, block and case maker)? Give summary @ -I spoke at length with the radiologist Dr. Oneal about the CAT scan. I also spoke with Dr. West who agreed to admit the patient. Was smoking cessation discussed for >3mins.? @ -No Was critical care preformed (if so, how long)? @ -35 minutes Were there social determinants of health that impacted care today? How? (Homelessness, low income, unemployed, alcoholism, drug addiction, transportation, low edu. Level, literacy, decrease access to med. care, [facility], rehab)? @ -No Was there de-escalation of care discussed even if they declined (Discuss DNR or withdrawal of care, Hospice)? DNR status @ -No What co-morbidities impacted this encounter? (DM, HTN, Smoking, COPD, CAD, Cance r, CVA, ARF, Chemo, Hep., AIDS, mental health diagnosis, sleep apnea, morbid obesity)? @ -None Was patient admitted / discharged? Hospital course, mention meds given and route, prescriptions, significant lab abnormalities, going to OR and other pertinent info. @ -Patient was started on heparin for the pulmonary embolism. Patient will be admitted to [facility] [place] [facility] I will consult pulmonary oncology and cardiology Undiagnosed new problem with uncertain prognosis? @ -No Drug Therapy requiring intensive monitoring for toxicity (Heparin, Nitro, Insulin, Cardizem)? @ -No Were any procedures done? @ -No Diagnosis/symptom? @ -Pulmonary embolism Acute, or Chronic, or Acute on Chronic? @ -Acute Uncomplicated (without systemic symptoms) or Complicated (systemic symptoms)? @ -Complicated Side effects of treatment? @ -No Exacerbation, Progression, or Severe Exacerbation? @ -No Poses a threat to life or bodily function? How? (Chest pain, USA, ME, pneumonia, PE, COPD, DKA, ARF, appy, cholecystitis, CVA, Diverticulitis, Homicidal, Suicidal, threat to staff... and all critical care pts) @ -Yes this can lead to hypoxia and endorgan dysfunction Diagnosis/symptom? @ -Pleural effusion Acute, or Chronic, or Acute on Chronic? @ -Acute on chronic Uncomplicated (without systemic symptoms) or Complicated (systemic symptoms)? @ -Complicated Side effects of treatment? @ -None Exacerbation, Progression, or Severe Exacerbation] @ -No Poses a threat to life or bodily function? @ -Yes this can lead to hypoxia and endorgan dysfunction Diagnosis/symptom? @ -Lung mass Acute, or Chronic, or Acute on Chronic? @ -Chronic Uncomplicated (without systemic symptoms) or Complicated (systemic symptoms)? @ -Complicated Side effects of treatment? @ -None Exacerbation, Progression, or Severe Exacerbation] @ -No Poses a threat to life or bodily function? @ -No - Lab Data Result diagrams: 12/15/23 19:20 12/15/23 19:20 Lab Results 12/15/23 12/15/23 12/15/23 Range/Units 19:20 19:20 19:20 WBC 17.5 H (3.8-10.6) k/uL RBC 3.80 L (4.30-5.90) m/uL Hgb 11.6 L (13.0-17.5) gm/dL Hct 35.3 L (39.0-53.0) % MCV 92.9 (80.0-100.0) fL MCH 30.5 (25.0-35.0) pg MCHC 32.9 (31.0-37.0) g/dL RDW 15.3 (11.5-15.5) % Plt Count 1002 H* (150-450) k/uL MPV 7.3 Neutrophils % 90 % Lymphocytes % 3 % Monocytes % 5 % Eosinophils % 0 % Basophils % 0 % Neutrophils # 15.7 H (1.3-7.7) k/uL Lymphocytes # 0.6 L (1.0-4.8) k/uL Monocytes # 1.0 (0-1.0) k/uL Eosinophils # 0.1 (0-0.7) k/uL Basophils # 0.1 (0-0.2) k/uL PT 11.5 (10.0-12.5) sec INR 1.1 (<1.2) APTT 29.3 (22.0-30.0) sec Sodium 128 L (137-145) mmol/L Potassium 4.2 (3.5-5.1) mmol/L Chloride 94 L (98-107) mmol/L Carbon Dioxide 28 (22-30) mmol/L Anion Gap 6 mmol/L BUN 20 (9-20) mg/dL Creatinine 0.74 (0.66-1.25) mg/dL Est GFR (CKD-EPI)AfAm >90 (>60 ml/min/1.73 sqM) Est GFR (CKD-EPI)NonAf >90 (>60 ml/min/1.73 sqM) Glucose 190 H (74-99) mg/dL Plasma Lactic Acid Owen (0.7-2.0) mmol/L Calcium 9.0 (8.4-10.2) mg/dL Magnesium 1.7 (1.6-2.3) mg/dL Total Bilirubin 0.5 (0.2-1.3) mg/dL AST 49 (17-59) U/L ALT 29 (4-49) U/L Alkaline Phosphatase 435 H (38-126) U/L Troponin I (0.000-0.034) ng/mL Total Protein 6.5 (6.3-8.2) g/dL Albumin 3.2 L (3.5-5.0) g/dL 12/15/23 12/15/23 Range/Units 19:20 19:20 WBC (3.8-10.6) k/uL RBC (4.30-5.90) m/uL Hgb (13.0-17.5) gm/dL Hct (39.0-53.0) % MCV (80.0-100.0) fL MCH (25.0-35.0) pg MCHC (31.0-37.0) g/dL RDW (11.5-15.5) % Plt Count (150-450) k/uL MPV Neutrophils % % Lymphocytes % % Monocytes % % Eosinophils % % Basophils % % Neutrophils # (1.3-7.7) k/uL Lymphocytes # (1.0-4.8) k/uL Monocytes # (0-1.0) k/uL Eosinophils # (0-0.7) k/uL Basophils # (0-0.2) k/uL PT (10.0-12.5) sec INR (<1.2) APTT (22.0-30.0) sec Sodium (137-145) mmol/L Potassium (3.5-5.1) mmol/L Chloride (98-107) mmol/L Carbon Dioxide (22-30) mmol/L Anion Gap mmol/L BUN (9-20) mg/dL Creatinine (0.66-1.25) mg/dL Est GFR (CKD-EPI)AfAm (>60 ml/min/1.73 sqM) Est GFR (CKD-EPI)NonAf (>60 ml/min/1.73 sqM) Glucose (74-99) mg/dL Plasma Lactic Acid Owen 1.4 (0.7-2.0) mmol/L Calcium (8.4-10.2) mg/dL Magnesium (1.6-2.3) mg/dL Total Bilirubin (0.2-1.3) mg/dL AST (17-59) U/L ALT (4-49) U/L Alkaline Phosphatase (38-126) U/L Troponin I <0.012 (0.000-0.034) ng/mL Total Protein (6.3-8.2) g/dL Albumin (3.5-5.0) g/dL Disposition Clinical Impression: Mass of left lung, Pulmonary embolism, Pleural effusion, Hyponatremia Disposition: ADMITTED IP TO THIS HOSP Referrals: [facility],Clinic [Primary Care Provider] - 1-2 days Time of Disposition: 21:01
[2023-12-15 19:58] LABS: ALT 29 U/L (4-49); AST 49 U/L (17-59); African American GFR (CKD) >90 (>60 ml/min/1.73 sqM); Albumin 3.2 g/dL (3.5-5.0); Alkaline Phosphatase 435 U/L (38-126); Anion Gap 6 mmol/L; Blood Urea Nitrogen 20 mg/dL (9-20); Carbon Dioxide 28 mmol/L (22-30); Chloride 94 mmol/L (98-107); Glucose 190 mg/dL (74-99); Magnesium 1.7 mg/dL (1.6-2.3); Non-African American GFR(CKD) >90 (>60 ml/min/1.73 sqM); Potassium 4.2 mmol/L (3.5-5.1); Sodium 128 mmol/L (137-145); Total Bilirubin 0.5 mg/dL (0.2-1.3); Total Protein 6.5 g/dL (6.3-8.2)
[2023-12-15 19:59] LABS: INR 1.1 (<1.2)
[2023-12-15 20:00] LABS: Partial Thromboplastin Time 29.3 sec (22.0-30.0); Prothrombin Time 11.5 sec (10.0-12.5)
[2023-12-15 20:03] LABS: Basophils # (A) 0.1 k/uL (0-0.2); Basophils % (A) 0 %; Eosinophils # (A) 0.1 k/uL (0-0.7); Eosinophils % (A) 0 %; HCT 35.3 % (39.0-53.0); HGB 11.6 gm/dL (13.0-17.5); Lymphocytes # (A) 0.6 k/uL (1.0-4.8); Lymphocytes % (A) 3 %; MCH 30.5 pg (25.0-35.0); MCHC 32.9 g/dL (31.0-37.0); MCV 92.9 fL (80.0-100.0); Mean Platelet Volume 7.3; Monocytes % (A) 5 %; Neutrophils # (A) 15.7 k/uL (1.3-7.7); Neutrophils % (A) 90 %; RDW 15.3 % (11.5-15.5); WBC 17.5 k/uL (3.8-10.6)
[2023-12-15 20:05] LABS: Platelet Count 1002 k/uL (150-450)
[2023-12-15] MEDS: SODIUM CHLORIDE 0.9% 500 ML 500 ML IV ONE (21:21)
[2023-12-15] MEDS: SODIUM CHLORIDE 0.9% 1,000 ML IV ONE (21:21)
[2023-12-15] MEDS: HYDROmorphone 1 MG/ML 1 ML SYRINGE IVP STA (21:21)
[2023-12-15] MEDS ORDERED: DEXTROSE 50% SYRINGE 50 ML IVP PRN ×2 (22:49)
--- NOTE | 2023-12-15 23:22 | P.HPIM ---
History of Present Illness H&P Date: 12/15/23 History of present illness; Thad Freeman 63-year-old male with Stage 4 Lung cancer (primary tumor vs metastases from previous head and neck cancer from 2021, following with Dr Roblero, receiving chemotherapy) diabetes mellitus type 1 and hypothyroidism presents with new onset shortness of breath. Patient states shortness of breath began 1 week ago and has progressively worsened since with associated cough, weakness, and chest discomfort. Patient states cough is worse with deep inspiration. During this time he has some associated weakness and dizziness with no reported falls or loss of consciousness or focal neurological deficits. Today patient states he was scheduled for routine chemotherapy and due to symptoms was advised to come to hospital for treatment. He has no other complaints at this time. Patient reports absence of fever, chills, weight loss, palpitations, diaphoresis, nausea, vomiting, constipation, diarrhea, abdominal pain, myalgia, headache, and dysuria. Initial lab work done in the ER showed WBC 17.5, hemoglobin 11.6, platelets 1002, sodium 128, potassium 4.2, chloride 94, bicarb 28, BUN 20, creatinine 0.74, glucose 190, ALP 435, troponin negative. EKG done in the ER independently interpreted showed heart rate of 92, no ST segment elevation or depression seen, no T-wave inversions seen. CT chest revealed large mass in left lung with large pleural effusion and m oderate right-sided effusion along with small PE in right lung. Patient admitted to internal medicine service. REVIEW OF SYSTEMS: All Systems reviewed, pertinent positives and negatives noted in HPI. All other symptoms are negative. PHYSICAL EXAMINATION: Vitals reviewed GENERAL: Mild acute distress. Well developed, well nourished. HEENT: left coloboma. EOMI. No scleral icterus. Normocephalic, atraumatic. No pharyngeal erythema. No thyromegaly. CARDIOVASCULAR: S1 and S2 present. No murmurs, rubs, or gallops. PULMONARY: Bilateral decreased breath sounds in lower left lung, worse than right ABDOMEN: Soft, nontender, nondistended, normoactive bowel sounds. No palpable organomegaly. MUSCULOSKELETAL: No apparent joint swelling and deformities. EXTREMITIES: No apparent cyanosis, clubbing, or pedal edema. NEUROLOGICAL: The patient is alert and oriented x3, Gross neurological examination did not reveal any focal deficits. 5/5 Strength bilateral UE and LE SKIN: No apparent rashes. Labs reviewed Imaging reviewed Assessment and plan Thad Freeman 63-year-old male with lung cancer receiving chemotherapy treatment, diabetes mellitus type 1 and hypothyroidism presents with new onset shortness of breath. # Bilateral pleural effusion, likely malignant with underlying lung ca #Dyspnea Plan for thoracentesis Pulmonology consulted #Pulmonary embolism, non-massive Troponin negative, EKG unremarkable Continue heparin infusion Order echocardiogram Consult cardiology - Patient currently normotensive with hypoxemia requiring 2 L NC oxygen - Obtain sofie LE venous duplex - Cardiac monitoring #Lung cancer #Thrombocytosis, likely due to malignancy #Leukocytosis Patient on chemotherapy Continue to monitor CBC Consult hematology oncology Chronic Medical Conditions #Diabetes mellitus, type 1 Begin Accu-Cheks and low-dose sliding scale, monitor for hypoglycemia Resume home long-acting insulin at 10 units Pending HbA1c #Hypothyroidism - Resume home Synthroid once verified F: P.o. E: Replete as needed N: Regular diet E: None DVT ppx: Heparin infusion Code status: Full code Anticipated discharge place: Home Anticipated discharge time: 2 to 3 days Dictation was produced using [employer] dictation software. Please excuse any grammatical, word or spelling errors. 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 CT SCAN SHOWING MASS LT LUNG. HAVING SOB History of Any Multi-Drug Resistant Organisms: None Reported Past Surgical History: Orthopedic Surgery Additional Past Surgical History / Comment(s): eye surgery-BILAT GLAUCOMA. 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 AGO LT EYE Past Anesthesia/Blood Transfusion Reactions: No Reported Reaction Past Psychological History: No Psychological Hx Reported Smoking Status: Never smoker - Past Family History Mother Family Medical History: No Reported History Medications and Allergies Home Medications Medication Instructions Recorded Confirmed Type INSULIN ASPART (NovoLOG) [NovoLOG] See Protocol SQ AC-TID 10/29/15 08/31/23 History Insulin Glargine [Lantus] 22 unit SQ HS 10/29/15 08/31/23 History Dorzolamide 2% [Trusopt 2%] 1 drops BOTH EYES BID 09/02/21 08/31/23 History Multivitamins, Thera [Multivitamin 1 tab PO DAILY 09/02/21 08/31/23 History (formulary)] HYDROcodone/APAP 7.5-325MG [[place] 1 tab PO BID PRN 08/30/23 08/31/23 History 7.5-325] Levothyroxine Sodium [Synthroid] 175 mcg PO DAILY 08/30/23 08/31/23 History Allergies Allergy/AdvReac Type Severity Reaction Status Date / Time No Known Allergies Allergy Verified 08/31/23 11:24 Physical Exam Vitals: Vital Signs Temp Pulse Resp BP Pulse Ox 12/15/23 18:36 18 12/15/23 18:21 97.3 F L 94 20 160/92 97 Intake and Output 12/15/23 12/15/23 12/15/23 06:59 14:59 22:59 Other: Weight 70.307 kg Results CBC & Chem 7: 12/15/23 19:20 12/15/23 19:20 Labs: Abnormal Lab Results - Last 24 Hours (Table) 12/15/23 12/15/23 Range/Units 19:20 19:20 WBC 17.5 H (3.8-10.6) k/uL RBC 3.80 L (4.30-5.90) m/uL Hgb 11.6 L (13.0-17.5) gm/dL Hct 35.3 L (39.0-53.0) % Plt Count 1002 H* (150-450) k/uL Neutrophils # 15.7 H (1.3-7.7) k/uL Lymphocytes # 0.6 L (1.0-4.8) k/uL Sodium 128 L (137-145) mmol/L Chloride 94 L (98-107) mmol/L Glucose 190 H (74-99) mg/dL Alkaline Phosphatase 435 H (38-126) U/L Albumin 3.2 L (3.5-5.0) g/dL
[2023-12-15] MEDS: INSULIN DETEMIR (LEVEMIR) 100 UNIT/ML SYR SQ SCH (23:54)
[2023-12-16] MEDS: INSULIN ASPART (NovoLOG) 100 UNIT/ML VIAL SQ SCH (07:40)
[2023-12-16 07:51] LABS: HCT 39.4 % (39.0-53.0); HGB 11.7 gm/dL (13.0-17.5); Hypochromasia Slight; MCHC 29.8 g/dL (31.0-37.0); MCV 97.5 fL (80.0-100.0); Mean Platelet Volume 6.9; RBC 4.04 m/uL (4.30-5.90); RDW 14.8 % (11.5-15.5); WBC 21.8 k/uL (3.8-10.6)
[2023-12-16 07:55] LABS: Platelet Count 1085 k/uL (150-450)
[2023-12-16 08:21] LABS: ALT 29 U/L (4-49); AST 53 U/L (17-59); African American GFR (CKD) >90 (>60 ml/min/1.73 sqM); Albumin 3.1 g/dL (3.5-5.0); Alkaline Phosphatase 428 U/L (38-126); Anion Gap 7 mmol/L; Blood Urea Nitrogen 18 mg/dL (9-20); Calcium 8.6 mg/dL (8.4-10.2); Carbon Dioxide 26 mmol/L (22-30); Chloride 95 mmol/L (98-107); Glucose 116 mg/dL (74-99); Non-African American GFR(CKD) >90 (>60 ml/min/1.73 sqM); Potassium 4.6 mmol/L (3.5-5.1); Sodium 128 mmol/L (137-145); Total Bilirubin 0.5 mg/dL (0.2-1.3); Total Protein 6.4 g/dL (6.3-8.2)
--- NOTE | 2023-12-16 08:53 | US ---
EXAMINATION TYPE: US chest DATE OF EXAM: 12/16/2023 COMPARISON: CT chest CLINICAL INDICATION: Male, 63 years old with history of Markings for thoracentesis by pulmonary staff ; TECHNIQUE: Grayscale imaging of the chest. Targeted ultrasound of the posterior lower bilateral nava thoraces FINDINGS: EXAM MEASUREMENTS: Right Pleural Effusion pocket size: 8.1 cm Left Pleural Effusion pocket size: 3.2 cm Left skin surface to fluid distance: 17.2 cm Right side NOT marked for possible thoracentesis outside the dept. Left side marked for possible thoracentesis outside the dept. Pulmonologists are able to review the images in the patient?s EMR. IMPRESSIONS: Bilateral pleural effusions, left marked for thoracentesis. [facility], , 12/16/2023 8:51 AM
--- NOTE | 2023-12-16 08:53 | US ---
EXAMINATION TYPE: US venous doppler duplex LE BI DATE OF EXAM: 12/16/2023 8:36 AM COMPARISON: NONE CLINICAL INDICATION: Male, 63 years old with history of Pulmonary embolism; , TECHNIQUE: The lower extremity deep venous system is examined utilizing real time linear array sonog karen with graded compression, color doppler sonography, and spectral doppler. SIDE PERFORMED: Bilateral FINDINGS: VESSELS IMAGED: Common Femoral Vein Deep Femoral Vein Greater Saphenous Vein * Femoral Vein Popliteal Vein Small Saphenous Vein * Proximal Calf Veins (* superficial vessels) Right Leg: Negative for DVT; Rouleaux flow noted within right popliteal vein; pocket of fluid noted within right popliteal fossa measuring 4.0 x 1.2 x 1.5cm medially Left Leg: Negative for DVT IMPRESSION: 1. No ultrasound evidence for deep venous thrombosis. 2. Right popliteal fossa cyst. [facility], , 12/16/2023 8:51 AM
[2023-12-16 09:07] LABS: Band Neutrophils % 2 %; Eosinophils # (M) 0.22 k/uL (0-0.7); Lymphocytes # (M) 1.09 k/uL (1.0-4.8); Metamyelocytes # (M) 0.22 k/uL (0); Metamyelocytes % 1 %; Monocytes # (M) 1.31 k/uL (0-1.0); Myelocytes # (M) 0.22 k/uL (0); Myelocytes % 1 %; Neutrophils % (M) 86 %; Nucleated Red Blood Cells 0 /100 WBC (0-0); Total Cells Counted 200
[2023-12-16 09:08] LABS: Toxic Granulation Present
[2023-12-16] MEDS: LEVOTHYROXINE 88 MCG TAB PO SCH (09:42)
--- NOTE | 2023-12-16 09:52 | XR ---
EXAMINATION TYPE: XR chest 1V portable DATE OF EXAM: 12/16/2023 9:41 AM CLINICAL INDICATION: Male, 63 years old with history of Post left thoracentesis; COMPARISON: Chest radiographs from 11/12/2017 TECHNIQUE: XR chest 1V portable Frontal view of the chest. FINDINGS: Lungs/Pleura: New from 2018 bilateral pleural effusions with associated atelectasis. No left-sided pn eumothorax or right-sided pneumothorax. Pulmonary vascularity: Pulmonary vascular congestion. Heart/mediastinum: Cardiomediastinal silhouette is enlarged. Musculoskeletal: No acute osseous pathology. IMPRESSION: New from 2018 bilateral pleural effusions with suspected cardiomegaly and pulmonary vascular congesti on. No left-sided pneumothorax. There remains left pleural effusion. [facility], , 12/16/2023 9:50 AM
--- NOTE | 2023-12-16 11:45 | OP ---
OPERATIVE REPORT DATE OF SERVICE : PROCEDURE: Left-sided thoracentesis. PREOPERATIVE DIAGNOSIS: Large left pleural effusion. POSTOPERATIVE DIAGNOSIS: Large left pleural effusion. ANESTHESIA USED: 2 mL of 1% lidocaine. DESCRIPTION OF PROCEDURE: The patient was placed in the sitting upright position, the area of the chest was marked earlier by ultrasound, and a marking was placed at the 8th intercostal space and tip of the scapula. Then, the area was prepared in a sterile fashion, drapes were applied, the area was locally anesthetized with lidocaine and after adequate lidocaine applied in the area of the 8th intercostal space and tip of the scapula, a 26-gauge needle was inserted at the same site, advanced into the pleural space. Fluid was localized. A small tiny incision was made and a standard thoracentesis catheter and needle used, advanced into the pleural space. Fluid was localized again and the catheter was advanced over the needle and the needle was pulled out of the pleural space. Fluid was freely flowing, I was able to drain a total of 1200 plus mL of straw- colored fluid from the left pleural space. The patient developed some vague discomfort after removing just over 1200 mL, hence the catheter was pulled out of the pleural space. The fluid was sent for different diagnostic studies, no complications. The procedure was well tolerated. MMODL / IJN: [id number] /
[2023-12-16] MEDS: HYDROcodone/APAP 10-325MG 1 EACH TAB PO PRN (11:48)
--- NOTE | 2023-12-16 12:53 | CA ---
Transthoracic Echo Report Name: Thad Freeman Age: 63 Gender: M : 1960 Exam Date: 12/16/2023 08:28 Exam Location: [facility] Ht (in): 72 Wt (lb): 155 Ordering Physician: Augustin Herrera MD Attending/Referring Phys: Tile Layer Leanne Johns RDCS Procedure CPT: Indications: pulm embolism Cardiac Hx: Technical Quality: Fair Contrast 1: Total Dose (mL): Contrast 2: Total Dose (mL): MEASUREMENTS (Male / Female) Normal Values 2D ECHO LV Diastolic Diameter PLAX 3.6 cm 4.2 - 5.9 / 3.9 - 5.3 cm LV Systolic Diameter PLAX 2.4 cm IVS Diastolic Thickness 1.5 cm 0.6 - 1.0 / 0.6 - 0.9 cm LVPW Diastolic Thickness 1.4 cm 0.6 - 1.0 / 0.6 - 0.9 cm LV Relative Wall Thickness 0.8 RV Internal Dim ED PLAX 3.1 cm LA Volume 64.9 cm??? 18 - 58 / 22 - 52 cm??? LA Volume Index 34.4 cm???/m??? 16 - 28 cm???/m??? M-MODE Aortic Root Diameter MM 4.1 cm LA Systolic Diameter MM 4.1 cm LA Ao Ratio MM 1.0 AV Cusp Separation MM 2.4 cm DOPPLER AV Peak Velocity 127.2 cm/s AV Peak Gradient 6.5 mmHg AV Mean Velocity 93.2 cm/s AV Mean Gradient 3.8 mmHg AV Velocity Time Integral 24.2 cm LVOT Peak Velocity 107.8 cm/s LVOT Peak Gradient 4.6 mmHg LVOT Velocity Time Integral 23.4 cm MV Area PHT 2.3 cm??? Mitral E Point Velocity 52.3 cm/s Mitral A Point Velocity 92.7 cm/s Mitral E to A Ratio 0.6 MV Deceleration Time 326.2 ms MV E' Velocity 4.6 cm/s Mitral E to MV E' Ratio 11.4 FINDINGS Left Ventricle Moderately increased septal wall thickness. Left ventricular cavity size normal. No obvious regional wall motion abnormalities. Left ventricular ejection fraction is estimated at 55-60 %. Grade 1 diastolic dysfunction. Right Ventricle Normal right ventricular size and function. Right Atrium Mild right atrial dilatation. Left Atrium Mildly increased left atrial volume. Mitral Valve Structurally normal mitral valve. Mild mitral regurgitation. Aortic Valve Trileaflet aortic valve. No aortic valve stenosis or regurgitation. Tricuspid Valve Structurally normal tricuspid valve. Mild tricuspid regurgitation. Pulmonic Valve Structurally normal pulmonic valve. Pericardium Pleural effusion. Minimal pericardial effusion (normal variant). Aorta Normal size aortic root and proximal ascending aorta. CONCLUSIONS Indication: Shortness of breath, pulmonary embolism Impression Preserved LV systolic function Normal RV size and function Large pleural effusion Previewed by: Dr. Hay Robles MD (Electronically Signed) Final Date: 16 December 2023 12:52
--- NOTE | 2023-12-16 13:18 | P.PN ---
Subjective Progress Note Date: 12/16/23 63 year old M with PMH of stage 4 lung CA, Type 1 DM, hypothyroid presents to the ED for shortness of breath for the past week associated with cough. In the ED he underwent extensive evaluation. T 97.3F, BP 160/92, HR 94, RR 20, O2 sat as low as 89% on 2L NC. CBC, Coag panel, CMP significant for WBC 17.5, RBC 3.8, Hg 11.6, Hct 35.3, Plt 1002, Na 128, Cl 94, glu 190, alk phos 435, alb 3.2. Trop < 0.012. EKG sinus rhythm no with ST or T wave changes. CTA chest showed small segmental PE in the RLL, mod-large large left pleural effusion, mod right pleural effusion with pleural nodularity, AMALIA mass 11.9 cm with mediastinal LAD. Patient was started on a heparin infusion and admitted for further workup and management. Pulmonary consulted for thoracentesis, chest US ordered. 12/15 Patient was seen and examined. CBC, CMP significant for WBC 21.8, RBC 4.04, Hg 11.7, Plt 1085, Na 128, Cl 95, Cr 0.65, glu 116, alk phos 428, alb 3.1. General: non toxic, no distress, appears at stated age Derm: warm, dry Head: atraumatic, normocephalic, symmetric Eyes: EOMI, no lid lag, anicteric sclera Mouth: no lip lesion, mucus membranes moist Cardiovascular: S1S2 reg, no murmur Lungs: Decreased BS bilateral, no rhonchi, no rales, no accessory muscle use Ext: no gross muscle atrophy, no edema, no contractures Neuro: no focal neuro deficits Psych: Alert, oriented, appropriate affect Based on my assessment of this patient, this patient meets a high complexity level of care. Acute hypoxic respiratory failure likely due to below Bilateral pleural effusion: Chest US ordered. Pulmonary on board for thorace ntesis. Pulmonary embolus: Heparin drip on hold for thoracentesis. Obtain Echo. HypoCl hypoNa: Hypovolemic versus SIADH. Trial of gentle hydration with NS at 50 cc/hr. Leukocytosis: Possibly reactive. No signs of active infection. Meets SIRS criteria. Monitor fever profile. Normocytic anemia in the setting of malignancy Thrombocytosis in the setting of malignancy Type 1 DM: ISS. Accuchecks ACHS. Hypoglycemic precautions. History of stage 4 lung CA: Following Dr. Balderas Oncology consulted. Hypothyroid: Synthroid 175 mcg PO QD. CODE STATUS: FULL CODE DVT Prophylaxis: Heparin drip after procedure. GI Prophylaxis: Designated medical POA if patient is not able to make medical decisions for themselves: I have reviewed the following sr risk management consultant notes: I have reviewed the results of the following tests: CBC and CMP. I have ordered the following tests: CBC and BMP in the AM. I have discussed the care of this patient with the following independent historian: I have independently interpreted the following test below: Objective - Vital Signs Vital signs: Vital Signs Temp 98 F 12/16/23 07:00 Pulse 80 12/16/23 07:29 Resp 24 12/16/23 07:29 BP 128/90 12/16/23 07:29 Pulse Ox 98 12/16/23 07:29 FiO2 Intake & Output 12/15/23 12/16/23 12/16/23 18:59 06:59 18:59 Weight 70.307 kg - Labs CBC & Chem 7: 12/16/23 07:12 12/16/23 07:12 Labs: Abnormal Lab Results - Last 24 Hours (Table) 12/15/23 12/15/23 12/16/23 Range/Units 19:20 19:20 02:25 WBC 17.5 H (3.8-10.6) k/uL RBC 3.80 L (4.30-5.90) m/uL Hgb 11.6 L (13.0-17.5) gm/dL Hct 35.3 L (39.0-53.0) % MCHC (31.0-37.0) g/dL Plt Count 1002 H* (150-450) k/uL Neutrophils # 15.7 H (1.3-7.7) k/uL Lymphocytes # 0.6 L (1.0-4.8) k/uL APTT 58.7 H (22.0-30.0) sec Sodium 128 L (137-145) mmol/L Chloride 94 L (98-107) mmol/L Glucose 190 H (74-99) mg/dL Alkaline Phosphatase 435 H (38-126) U/L Albumin 3.2 L (3.5-5.0) g/dL 12/16/23 Range/Units 07:12 WBC 21.8 H (3.8-10.6) k/uL RBC 4.04 L (4.30-5.90) m/uL Hgb 11.7 L (13.0-17.5) gm/dL Hct (39.0-53.0) % MCHC 29.8 L (31.0-37.0) g/dL Plt Count 1085 H* (150-450) k/uL Neutrophils # (1.3-7.7) k/uL Lymphocytes # (1.0-4.8) k/uL APTT (22.0-30.0) sec Sodium (137-145) mmol/L Chloride (98-107) mmol/L Glucose (74-99) mg/dL Alkaline Phosphatase (38-126) U/L Albumin (3.5-5.0) g/dL
--- NOTE | 2023-12-16 13:28 | P.CNPUL ---
History of Present Illness Consult date: 12/16/23 Requesting physician: Katty West Reason for consult: dyspnea, pleural effusion, abnormal CXR/CT Chief complaint: Shortness of breath History of present illness: This is a 63-year-old male patient with a history of tongue and neck cancer status post chemoradiation therapy completed in April 2021. The patient was recently found to have a lung mass and had undergone biopsy in August 2023 and found to have invasive moderately differentiated squamous cell carcinoma. 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 Suggestive of probable metastasis from the patient's known tongue and neck primary to the lung. MRI of the brain was negative. A PET scan from September 2023 revealed findings most consistent with a large left upper lobe FDG avid lung mass with metastatic FDG avid mediastinal/right supraclavicular and bilateral hilar adenopathy. Additional left inferior pleural surface FDG avid metastatic nodules. He had been receiving chemotherapy and was seen by his o ncologist yesterday who sent him for a CT angiogram that did reveal a small subsegmental branch embolus to the basilar right lower lobe. New moderate to large left pleural effusion with atelectatic collapse of the basilar left lower lobe. New moderate right pleural effusion with adjacent atelectasis. Increasing pleural nodular thickening at the left costophrenic angle and also pleural nodularity posterior left upper lung. Additional disease progression with new pericardiac adenopathy measuring up to 2.1 cm. Was referred here to the emergency room last evening. He is seen today in consultation in the emergency department. He is currently sitting up on a stretcher. Awake and alert in no acute distress. He is dyspneic with conversation. Dyspneic with minimal exertion. He is maintaining O2 saturations in the 90s on 4 L/min per nasal cannula. White count 21.8. Hemoglobin 11.7. Platelets 1085. Sodium 128. Potassium 4.6. Bicarb 26. BUN 18. Creatinine 0.65. Glucose 116. He is currently on a heparin drip Review of Systems REVIEW OF SYSTEMS: CONSTITUTIONAL: Denies any recent significant weight loss or weight gain. EYES: Denies change in vision. EARS, NOSE, MOUTH, THROAT: Denies headaches, denies sore throat. CARDIOVASCULAR: Denies chest pain, palpitations or syncopal episodes. RESPIRATORY: Positive for shortness of breath, no cough, congestion or hemoptysis. GASTROINTESTINAL: Denies change in appetite, denies abdominal pain GENITOURINARY: Denies hematuria, denies infections. MUSKULOSKELETAL: Denies pain, denies swelling. INTEGUMENTARY: Denies rash, denies eczema. NEUROLOGICAL: Denies recent memory loss, no recent seizure activity. PSYCHIATRIC: Denies anxiety, denies depression. HEMATOLOGIC/LYMPHATIC: Denies anemia, denies enlarged lymph nodes. 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 CT SCAN SHOWING MASS LT LUNG. HAVING SOB History of Any Multi-Drug Resistant Organisms: None Reported Past Surgical History: Orthopedic Surgery Additional Past Surgical History / Comment(s): eye surgery-BILAT GLAUCOMA. 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 AGO LT EYE Past Anesthesia/Blood Transfusion Reactions: No Reported Reaction Past Psychological History: No Psychological Hx Reported Smoking Status: Never smoker - Past Family History Mother Family Medical History: No Reported History Medications and Allergies Home Medications Medication Instructions Recorded Confirmed Type Multivitamins, Thera [Multivitamin 1 tab PO DAILY 09/02/21 12/16/23 History (formulary)] Levothyroxine Sodium [Synthroid] 175 mcg PO DAILY 08/30/23 12/16/23 History Dorzolamide-Timol 2.23%/0.68% 1 drop BOTH EYES BID 12/16/23 12/16/23 History [Cosopt] HYDROcodone/APAP 10-325MG [[place] 1 tab PO Q6H PRN 12/16/23 12/16/23 History 10-325] Insulin Aspart [NovoLOG Flexpen] See Protocol SQ AC-TID 12/16/23 12/16/23 History Insulin Glargine,Hum.rec.anlog 16 units SQ DAILY 12/16/23 12/16/23 History [Lantus Solostar Pen] Allergies Allergy/AdvReac Type Severity Reaction Status Date / Time No Known Allergies Allergy Verified 12/16/23 09:53 Physical Exam Vitals: Vital Signs Temp Pulse Resp BP Pulse Ox 12/16/23 11:43 86 18 130/86 94 L 12/16/23 10:00 67 16 134/88 96 12/16/23 09:00 80 24 125/74 98 12/16/23 08:00 24 12/16/23 07:29 80 24 128/90 98 12/16/23 07:00 98 F 80 18 133/89 98 12/16/23 02:00 78 18 134/87 98 12/16/23 00:00 75 18 130/70 97 12/15/23 23:32 92 18 126/80 89 L 12/15/23 18:36 18 12/15/23 18:21 97.3 F L 94 20 160/92 97 Intake and Output 12/15/23 12/16/23 12/16/23 22:59 06:59 14:59 Other: Weight 70.307 kg GENERAL EXAM: Alert, pleasant 63-year-old male, on 4 L nasal cannula, fairly comfortable in no apparent distress. HEAD: Normocephalic. EYES: Normal reaction of pupils, equal size. NOSE: Clear with pink turbinates. THROAT: No erythema or exudates. NECK: No masses, no JVD. CHEST: No chest wall deformity. LUNGS: Equal air entry with calcified basilar, left greater than right, diminished left lung base. CVS: S1 and S2 normal with no audible murmur, regular rhythm. ABDOMEN: No hepatosplenomegaly, normal bowel sounds, no guarding or rigidity. SPINE: No scoliosis or deformity SKIN: No rashes CENTRAL NERVOUS SYSTEM: No focal deficits, tone is normal in all 4 extremities. EXTREMITIES: There is no peripheral edema. No clubbing, no cyanosis. Peripheral pulses are intact. Results - Laboratory Findings CBC and BMP: 12/16/23 07:12 12/16/23 07:12 PT/INR, D-dimer PT 11.5 sec (10.0-12.5) 12/15/23 19:20 INR 1.1 (<1.2) 12/15/23 19:20 Abnormal lab findings: Abnormal Labs 12/15/23 12/15/23 12/16/23 19:20 19:20 02:25 WBC 17.5 H RBC 3.80 L Hgb 11.6 L Hct 35.3 L MCHC Plt Count 1002 H* Neutrophils # 15.7 H Neutrophils # (Manual) Lymphocytes # 0.6 L Monocytes # (Manual) Metamyelocytes # (Man) Myelocytes # (Manual) APTT 58.7 H Sodium 128 L Chloride 94 L Creatinine Glucose 190 H Alkaline Phosphatase 435 H Albumin 3.2 L 12/16/23 12/16/23 07:12 07:12 WBC 21.8 H RBC 4.04 L Hgb 11.7 L Hct MCHC 29.8 L Plt Count 1085 H* Neutrophils # Neutrophils # (Manual) 19.10 H Lymphocytes # Monocytes # (Manual) 1.31 H Metamyelocytes # (Man) 0.22 H Myelocytes # (Manual) 0.22 H APTT Sodium 128 L Chloride 95 L Creatinine 0.65 L Glucose 116 H Alkaline Phosphatase 428 H Albumin 3.1 L - Diagnostic Findings Chest x-ray: image reviewed CT scan - chest: image reviewed Assessment and Plan Assessment: Acute hypoxemic respiratory failure secondary to bilateral pleural effusions left greater than right. Status post left thoracentesis today December 16, 2023 with 1200 mL of cloudy yellow fluid removed. 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 with chemoradiation completed in April 2021, new metastatic lung mass biopsied August 2023 currently undergoing chemotherapy Acute segmental pulmonary emboli of the right lower lobe secondary to above, currently on a heparin drip Leukocytosis secondary to above Thrombocytosis Hyponatremia Diabetes mellitus Hypothyroidism Plan: The patient was seen and evaluated Imaging, labs and medications reviewed Status post left-sided thoracentesis today 1200 mL of cloudy yellow fluid removed Cultures and cytology pending Follow-up chest x-ray reveals no pneumothorax Titrate down the FiO2 as tolerated We will continue to follow and make further recommendations based on his clinical status I have personally seen and examined the patient, performed the documentation and the assessment and plan as written. Number of minutes spent on the visit: 20 Dictation was produced using [employer] dictation software. Please excuse any grammatical, word or spelling errors.
[2023-12-16 19:47] LABS: Glucose, BF Source Pleural Fluid; Glucose, Body Fluid 138 mg/dL; LDH, Body Fluid Source Pleural Fluid; T. Protein, Body Fluid Source Pleural Fluid; Total Protein, Body Fluid >3600 mg/dL
[2023-12-16 20:21] LABS: Glucose,Whole Blood 204 mg/dL (70-110)
[2023-12-16 22:59] LABS: Appearance,BF Hazy (Clear)
[2023-12-17 06:16] LABS: Glucose,Whole Blood 164 mg/dL (70-110)
--- NOTE | 2023-12-17 08:58 | XR ---
EXAMINATION TYPE: XR chest 1V portable DATE OF EXAM: 12/17/2023 Comparison: 12/16/2023 Clinical History: 63-year-old male pleural effusion Findings: Ongoing moderate to large left pleural effusion with extensive pleural parenchymal opacities througho ut the left hemithorax. Svyqm-ro-skqlyylt right pleural effusion also persists. Heart margins are sec ured. Interstitial density previously seen on the right has improved. Impression: 1. Ongoing moderate to large left and small to moderate right pleural effusions with adjacent atelect asis and/or consolidation. 2. However, interstitial density previously seen on the right has improved. [facility], , 12/17/2023 8:56 AM
[2023-12-17 09:01] LABS: HGB 12.2 gm/dL (13.0-17.5); MCH 29.8 pg (25.0-35.0); MCHC 31.2 g/dL (31.0-37.0); MCV 95.6 fL (80.0-100.0); Mean Platelet Volume 7.5; RBC 4.08 m/uL (4.30-5.90); RDW 15.2 % (11.5-15.5); WBC 18.9 k/uL (3.8-10.6)
[2023-12-17 09:05] LABS: Platelet Count 1085 k/uL (150-450)
[2023-12-17 09:16] LABS: African American GFR (CKD) >90 (>60 ml/min/1.73 sqM); Anion Gap 5 mmol/L; Blood Urea Nitrogen 14 mg/dL (9-20); Calcium 8.9 mg/dL (8.4-10.2); Carbon Dioxide 30 mmol/L (22-30); Chloride 93 mmol/L (98-107); Glucose 169 mg/dL (74-99); LDH 163 U/L (120-246); Non-African American GFR(CKD) >90 (>60 ml/min/1.73 sqM); Potassium 5.1 mmol/L (3.5-5.1); Sodium 128 mmol/L (137-145)
[2023-12-17 11:56] LABS: Glucose,Whole Blood 284 mg/dL (70-110)
--- NOTE | 2023-12-17 12:40 | P.PN ---
Subjective Progress Note Date: 12/17/23 63 year old M with PMH of stage 4 lung CA, Type 1 DM, hypothyroid presents to the ED for shortness of breath for the past week associated with cough. In the ED he underwent extensive evaluation. T 97.3F, BP 160/92, HR 94, RR 20, O2 sat as low as 89% on 2L NC. CBC, Coag panel, CMP significant for WBC 17.5, RBC 3.8, Hg 11.6, Hct 35.3, Plt 1002, Na 128, Cl 94, glu 190, alk phos 435, alb 3.2. Trop < 0.012. EKG sinus rhythm no with ST or T wave changes. CTA chest showed small segmental PE in the RLL, mod-large large left pleural effusion, mod right pleural effusion with pleural nodularity, AMALIA mass 11.9 cm with mediastinal LAD. Patient was started on a heparin infusion and admitted for further workup and management. Pulmonary consulted for thoracentesis, chest US ordered. He underwent thoracentesis with 1.2L removed. Echo EF 55-60% with G1DD. Venous Duplex negative for DVT (pocket of fluid 4 x 1.2 x 1.5 in the right popliteal fossa). 12/16 Patient was seen and examined. Breathing better. Discussed with Dr. Armstrong, patient would benefit from PleurX catheter thus CT surgery is consulted. CXR done this morning shows moderate to large left pleural effusion despite thoracentesis yesterday. CBC, CMP significant for WBC 18/9, RBC 4.08, Hg 12.2, Plt 1085, Na 128, Cl 93, glu 169. LDH 163. General: non toxic, no distress, appears at stated age Derm: warm, dry Head: atraumatic, normocephalic, symmetric Eyes: EOMI, no lid lag, anicteric sclera Mouth: no lip lesion, mucus membranes moist Cardiovascular: S1S2 reg, no murmur Lungs: Decreased BS bilateral, no rhonchi, no rales, no accessory muscle use Ext: no gross muscle atrophy, no edema, no contractures Neuro: no focal neuro deficits Psych: Alert, oriented, appropriate affect Based on my assessment of this patient, this patient meets a high complexity level of care. Acute hypoxic respiratory failure likely due to below Bilateral pleural effusion: Status post 1.2L fluid removal. Serum/Pleural protein ratio > 0.5 seem to indicate exudative effusion. Culture pending. Pulmonary on board. CT surgery consulted for PleurX. Pulmonary embolus: Echo as above. Heparin drip. Monitor APTT. HypoCl hypoNa: Hypovolemic versus SIADH. Trial of gentle hydration with NS at 50 cc/hr. Leukocytosis: Possibly reactive. No signs of active infection. Meets SIRS criteria. Monitor fever profile. Normocytic anemia in the setting of malignancy Thrombocytosis in the setting of malignancy Type 1 DM: ISS. Accuchecks ACHS. Hypoglycemic precautions. History of stage 4 lung CA: Following Dr. Roblero. Oncology consulted. Hypothyroid: Synthroid 175 mcg PO QD. CODE STATUS: FULL CODE DVT Prophylaxis: Heparin drip. GI Prophylaxis: Designated medical POA if patient is not able to make medical decisions for themselves: I have reviewed the following contaminated land consultant notes: Pulmonary note. I have reviewed the results of the following tests: CBC, BMP, LDH. I have ordered the following tests: CBC and BMP in the AM. I have discussed the care of this patient with the following independent historian: Dr. Armstrong I have independently interpreted the following test below: CXR. Objective - Vital Signs Vital signs: Vital Signs Temp 98.1 F 12/16/23 23:18 Pulse 89 12/17/23 04:06 Resp 18 12/17/23 04:06 BP 143/85 12/17/23 04:06 Pulse Ox 96 12/17/23 04:06 FiO2 Intake & Output 12/16/23 12/17/23 12/17/23 18:59 06:59 18:59 Intake Total 240 Output Total 200 Balance 40 Weight 70.307 kg 71.7 kg Intake: Oral 240 Output: Urine 200 Other: Voiding Method Toilet Urinal # Voids 2 - Labs CBC & Chem 7: 12/17/23 08:15 12/17/23 08:15 Labs: Abnormal Lab Results - Last 24 Hours (Table) 12/16/23 12/16/23 12/16/23 Range/Units 07:12 07:12 07:12 Neutrophils # (Manual) 19.10 H (1.3-7.7) k/uL Monocytes # (Manual) 1.31 H (0-1.0) k/uL Metamyelocytes # (Man) 0.22 H (0) k/uL Myelocytes # (Manual) 0.22 H (0) k/uL Sodium 128 L (137-145) mmol/L Chloride 95 L (98-107) mmol/L Creatinine 0.65 L (0.66-1.25) mg/dL Glucose 116 H (74-99) mg/dL POC Glucose (mg/dL) (70-110) mg/dL Hemoglobin A1c 7.9 H (<=6.0) % Alkaline Phosphatase 428 H (38-126) U/L Albumin 3.1 L (3.5-5.0) g/dL Fluid Appearance (Clear) 12/16/23 12/16/23 12/17/23 Range/Units 09:25 20:19 06:10 Neutrophils # (Manual) (1.3-7.7) k/uL Monocytes # (Manual) (0-1.0) k/uL Metamyelocytes # (Man) (0) k/uL Myelocytes # (Manual) (0) k/uL Sodium (137-145) mmol/L Chloride (98-107) mmol/L Creatinine (0.66-1.25) mg/dL Glucose (74-99) mg/dL POC Glucose (mg/dL) 204 H 164 H (70-110) mg/dL Hemoglobin A1c (<=6.0) % Alkaline Phosphatase (38-126) U/L Albumin (3.5-5.0) g/dL Fluid Appearance Hazy A (Clear) Microbiology - Last 24 Hours (Table) 12/16/23 09:25 Gram Stain - Preliminary Pleural Fluid Body Fluid Culture - Preliminary
--- NOTE | 2023-12-17 13:52 | P.PN ---
Subjective Progress Note Date: 12/17/23 This is a 63-year-old male patient with a history of tongue and neck cancer status post chemoradiation therapy completed in April 2021. The patient was recently found to have a lung mass and had undergone biopsy in August 2023 and found to have invasive moderately differentiated squamous cell carcinoma. 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 Suggestive of probable metastasis from the patient's known tongue and neck primary to the lung. MRI of the brain was negative. A PET scan from September 2023 revealed findings most consistent with a large left upper lobe FDG avid lung mass with metastatic FDG avid mediastinal/right supraclavicular and bilateral hilar adenopathy. Additional left inferior pleural surface FDG avid metastatic nodules. He had been receiving chemotherapy and was seen by his oncologist yesterday who sent him for a CT angiogram that did reveal a small subsegmental branch embolus to the basilar right lower lobe. New moderate to large left pleural effusion with atelectatic collapse of the basilar left lower lobe. New moderate right pleural effusion with adjacent atelectasis. Increasing pleural nodular thickening at the left costophrenic angle and also pleural nodularity posterior left upper lung. Additional disease progression with new pericardiac adenopathy measuring up to 2.1 cm. Was referred here to the emergency room last evening. He is seen today in consultation in the emergency department. He is currently sitting up on a stretcher. Awake and alert in no acute distress. He is dyspneic with conversation. Dyspneic with minimal exertion. He is maintaining O2 saturations in the 90s on 4 L/min per nasal cannula. White count 21.8. Hemoglobin 11.7. Platelets 1085. Sodium 128. Potassium 4.6. Bicarb 26. BUN 18. Creatinine 0.65. Glucose 116. He is currently on a heparin drip The patient is seen today December 17, 2023 in follow-up on the selective care unit. He is currently resting in bed. Awake and alert in no acute distress. Containing O2 saturations in the 90s on 2 L/min per nasal cannula. Afebrile. Hemodynamically stable. Pleural fluid culture and cytology pending. Fluid exudate with a total protein greater than 3.6, LDH 163. White count 18.9. Hemoglobin 12.2. Platelets 1085. Sodium 128. Potassium 5.1. Bicarb 30. BUN 14. Creatinine 0.68. Glucose 169. Today's chest x-ray shows recurring large left and small right pleural effusions. Objective - Vital Signs Vital signs: Vital Signs Temp 98.3 F 12/17/23 11:53 Pulse 77 12/17/23 11:53 Resp 16 12/17/23 11:53 BP 121/87 12/17/23 11:53 Pulse Ox 97 12/17/23 11:53 FiO2 Intake & Output 12/16/23 12/17/23 12/17/23 18:59 06:59 18:59 Intake Total 240 Output Total 200 Balance 40 Weight 70.307 kg 71.7 kg Intake: Oral 240 Output: Urine 200 Other: Voiding Method Toilet Toilet Urinal Urinal # Voids 2 - Exam GENERAL EXAM: Alert, pleasant 63-year-old male, on 2 L nasal cannula, comfortable in no apparent distress. HEAD: Normocephalic. EYES: Normal reaction of pupils, equal size. NOSE: Clear with pink turbinates. THROAT: No erythema or exudates. NECK: No masses, no JVD. CHEST: No chest wall deformity. LUNGS: Equal air entry with bibasilar crackles, left greater than right, diminished left lung base. CVS: S1 and S2 normal with no audible murmur, regular rhythm. ABDOMEN: No hepatosplenomegaly, normal bowel sounds, no guarding or rigidity. SPINE: No scoliosis or deformity SKIN: No rashes CENTRAL NERVOUS SYSTEM: No focal deficits, tone is normal in all 4 extremities. EXTREMITIES: There is no peripheral edema. No clubbing, no cyanosis. Periph eral pulses are intact. - Labs CBC & Chem 7: 12/17/23 08:15 12/17/23 08:15 Labs: Abnormal Lab Results - Last 24 Hours (Table) 12/16/23 12/16/23 12/17/23 Range/Units 09:25 20:19 06:10 WBC (3.8-10.6) k/uL RBC (4.30-5.90) m/uL Hgb (13.0-17.5) gm/dL Plt Count (150-450) k/uL Sodium (137-145) mmol/L Chloride (98-107) mmol/L Glucose (74-99) mg/dL POC Glucose (mg/dL) 204 H 164 H (70-110) mg/dL Fluid Appearance Hazy A (Clear) 12/17/23 12/17/23 12/17/23 Range/Units 08:15 08:15 11:53 WBC 18.9 H (3.8-10.6) k/uL RBC 4.08 L (4.30-5.90) m/uL Hgb 12.2 L (13.0-17.5) gm/dL Plt Count 1085 H* (150-450) k/uL Sodium 128 L (137-145) mmol/L Chloride 93 L (98-107) mmol/L Glucose 169 H (74-99) mg/dL POC Glucose (mg/dL) 284 H (70-110) mg/dL Fluid Appearance (Clear) Microbiology - Last 24 Hours (Table) 12/16/23 09:25 Gram Stain - Preliminary Pleural Fluid Body Fluid Culture - Preliminary Assessment and Plan Assessment: Acute hypoxemic respiratory failure secondary to bilateral pleural effusions left greater than right. Status post left thoracentesis today December 16, 2023 with 1200 mL of cloudy yellow fluid removed. 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 with chemoradiation completed in April 2021, new metastatic lung mass biopsied August 2023 currently undergoing chemotherapy Acute segmental pulmonary emboli of the right lower lobe secondary to above, currently on a heparin drip Leukocytosis secondary to above Thrombocytosis Hyponatremia Diabetes mellitus Hypothyroidism Plan: The patient was seen and evaluated Chest x-ray, labs and medications reviewed Status post left-sided thoracentesis yesterday Recurring left-sided pleural effusion Will request CT services for possible Pleurx catheter placement Titrate down the FiO2 as tolerated We will continue to follow I have personally seen and examined the patient, performed the documentation and the assessment and plan as written. Number of minutes spent on the visit: 10 Dictation was produced using [employer] dictation software. Please excuse any grammatical, word or spelling errors.
[2023-12-17] MEDS ORDERED: ZINC OXIDE PASTE (Z-GUARD) 1 APPLIC TOPICAL PRN (15:36)
--- NOTE | 2023-12-17 16:43 | P.CONS ---
History of Present Illness - Reason for Consult Consult date: 12/17/23 lung cancer Requesting physician: Katty West - Chief Complaint SOB - History of Present Illness Mr. Freeman is a very pleasant 63-year-old gentleman with a history of head and neck squamous cell carcinoma status post chemo RT in 04/2021 and more recent diagnosis of lung cancer who is here for shortness of breath. He was lost to follow-up after his had a neck cancer was treated and more recently was found to have a lung mass which was biopsied and found to be positive for moderately differentiated squamous cell carcinoma. He received cycle 1 of palliative chemo/immunotherapy on 12/06/2023 with carboplatin, Alimta, and Keytruda. Came in for cycle 2 of treatment on 12/15/2023 however was noted to be significantly short of breath. Sent for an emergent CT of the chest which revealed bilateral, left greater than right, pleural effusions as well as a small PE. He was sent to the ER where he was started on heparin drip and has undergone a thoracentesis with 1200 cc of hazy fluid removed. Breathing is little bit better. He is also started on oxygen; not on home oxygen at baseline. 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 CT SCAN SHOWING MASS LT LUNG. HAVING SOB History of Any Multi-Drug Resistant Organisms: None Reported Past Surgical History: Orthopedic Surgery Additional Past Surgical History / Comment(s): eye surgery-BILAT GLAUCOMA. 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 AGO LT EYE Past Anesthesia/Blood Transfusion Reactions: No Reported Reaction Past Psychological History: No Psychological Hx Reported Smoking Status: Never smoker - Past Family History Mother Family Medical History: No Reported History Medications and Allergies Home Medications Medication Instructions Recorded Confirmed Type Multivitamins, Thera [Multivitamin 1 tab PO DAILY 09/02/21 12/16/23 History (formulary)] Levothyroxine Sodium [Synthroid] 175 mcg PO DAILY 08/30/23 12/16/23 History Dorzolamide-Timol 2.23%/0.68% 1 drop BOTH EYES BID 12/16/23 12/16/23 History [Cosopt] HYDROcodone/APAP 10-325MG [[place] 1 tab PO Q6H PRN 12/16/23 12/16/23 History 10-325] Insulin Aspart [NovoLOG Flexpen] See Protocol SQ AC-TID 12/16/23 12/16/23 History Insulin Glargine,Hum.rec.anlog 16 units SQ DAILY 12/16/23 12/16/23 History [Lantus Solostar Pen] Allergies Allergy/AdvReac Type Severity Reaction Status Date / Time No Known Allergies Allergy Verified 12/16/23 09:53 Physical Exam Vitals: Vital Signs Temp Pulse Resp BP Pulse Ox 12/17/23 15:24 98.2 F 88 16 135/93 98 12/17/23 14:00 77 16 12/17/23 11:53 98.3 F 77 16 121/87 97 12/17/23 08:00 98.0 F 90 16 116/66 96 12/17/23 04:06 89 18 143/85 96 12/16/23 23:18 98.1 F 85 19 127/84 100 12/16/23 20:13 101 H 19 154/89 96 Intake and Output 12/17/23 12/17/23 12/17/23 06:59 14:59 22:59 Intake Total 840 Balance 840 Intake: Oral 840 Other: Voiding Method Toilet Toilet Urinal Urinal # Voids 2 Weight 71.7 kg Patient sitting on the side of the bed, no acute distress, has nasal cannula on. No obvious respiratory distress at this time. Results CBC & Chem 7: 12/17/23 08:15 12/17/23 08:15 Labs: Abnormal Lab Results - Last 24 Hours (Table) 12/16/23 12/16/23 12/17/23 Range/Units 09:25 20:19 06:10 WBC (3.8-10.6) k/uL RBC (4.30-5.90) m/uL Hgb (13.0-17.5) gm/dL Plt Count (150-450) k/uL Sodium (137-145) mmol/L Chloride (98-107) mmol/L Glucose (74-99) mg/dL POC Glucose (mg/dL) 204 H 164 H (70-110) mg/dL Fluid Appearance Hazy A (Clear) 12/17/23 12/17/23 12/17/23 Range/Units 08:15 08:15 11:53 WBC 18.9 H (3.8-10.6) k/uL RBC 4.08 L (4.30-5.90) m/uL Hgb 12.2 L (13.0-17.5) gm/dL Plt Count 1085 H* (150-450) k/uL Sodium 128 L (137-145) mmol/L Chloride 93 L (98-107) mmol/L Glucose 169 H (74-99) mg/dL POC Glucose (mg/dL) 284 H (70-110) mg/dL Fluid Appearance (Clear) Microbiology - Last 24 Hours (Table) 12/16/23 09:25 Gram Stain - Preliminary Pleural Fluid Body Fluid Culture - Preliminary CT scan - chest: report reviewed Assessment and Plan Assessment: 1. Metastatic lung cancer 2. New pleural effusion 3. PE 4. Hypoxemic respiratory failure Plan: Mr. Freeman is a very pleasant 63-year-old gentleman with recently found lung cancer with pleural involvement, status post cycle 1 of carbo, Alimta, and Keytruda, here for shortness of breath and CT findings of bilateral pleural effusion as well as small PE. -I reviewed the CT scan with the patient -Unclear of his pleural effusions are malignant or not however discussed that even if this is malignant effusion that he has only had 1 cycle of chemo and it does not imply failure to therapy -Lower extremity Doppler, await report -Recommend anticoagulation, no objections to DOAC -Hold chemotherapy for now -Thrombocytosis and leukocytosis, unclear etiology but likely reactive. Monitor for now. Discussed with pt and he is agreeable. All questions answered.
[2023-12-17 16:51] LABS: Glucose,Whole Blood 339 mg/dL (70-110)
[2023-12-17 20:07] LABS: Glucose,Whole Blood 320 mg/dL (70-110)
[2023-12-17] MEDS: INSULIN DETEMIR (LEVEMIR) 100 UNIT/ML SYR SQ SCH (21:24)
[2023-12-18 03:53] LABS: Glucose,Whole Blood 64 mg/dL (70-110)
[2023-12-18 04:12] LABS: Glucose,Whole Blood 70 mg/dL (70-110)
[2023-12-18 04:35] LABS: Glucose,Whole Blood 79 mg/dL (70-110)
[2023-12-18 06:17] LABS: Glucose,Whole Blood 158 mg/dL (70-110)
[2023-12-18 09:51] LABS: Basophils # (A) 0.1 k/uL (0-0.2); Basophils % (A) 0 %; Eosinophils # (A) 0.3 k/uL (0-0.7); Eosinophils % (A) 2 %; HCT 34.3 % (39.0-53.0); HGB 10.5 gm/dL (13.0-17.5); Hypochromasia Slight; Lymphocytes # (A) 0.7 k/uL (1.0-4.8); Lymphocytes % (A) 5 %; MCH 29.5 pg (25.0-35.0); MCHC 30.6 g/dL (31.0-37.0); MCV 96.3 fL (80.0-100.0); Mean Platelet Volume 6.8; Monocytes # (A) 1.3 k/uL (0-1.0); Monocytes % (A) 8 %; Neutrophils # (A) 12.8 k/uL (1.3-7.7); Neutrophils % (A) 84 %; Platelet Count 897 k/uL (150-450); RBC 3.56 m/uL (4.30-5.90); WBC 15.4 k/uL (3.8-10.6)
[2023-12-18 10:03] LABS: Partial Thromboplastin Time 31.9 sec (22.0-30.0); Prothrombin Time 11.4 sec (10.0-12.5)
[2023-12-18 10:35] LABS: Basophils # (A) 0.1 k/uL (0-0.2); Basophils % (A) 0 %; Eosinophils # (A) 0.3 k/uL (0-0.7); Eosinophils % (A) 2 %; HCT 34.5 % (39.0-53.0); HGB 10.9 gm/dL (13.0-17.5); Lymphocytes # (A) 0.7 k/uL (1.0-4.8); Lymphocytes % (A) 5 %; MCHC 31.5 g/dL (31.0-37.0); MCV 95.1 fL (80.0-100.0); Mean Platelet Volume 6.5; Monocytes # (A) 1.2 k/uL (0-1.0); Monocytes % (A) 8 %; Neutrophils # (A) 12.9 k/uL (1.3-7.7); Neutrophils % (A) 84 %; Platelet Count 940 k/uL (150-450); RBC 3.63 m/uL (4.30-5.90); RDW 14.9 % (11.5-15.5); WBC 15.3 k/uL (3.8-10.6)
[2023-12-18 10:37] LABS: INR 1.1 (<1.2); Prothrombin Time 11.4 sec (10.0-12.5)
[2023-12-18] MEDS: HEPARIN SOD,PORK IN 0.45% NACL 25,000 UNIT in 0.45% NACL 1 250ML.BAG IV SCH (11:10)
[2023-12-18 11:11] LABS: Glucose,Whole Blood 168 mg/dL (70-110)
[2023-12-18] MEDS: HEPARIN SODIUM 1,000 UN/ML (10ML VL) IV ONE (11:30)
[2023-12-18] MEDS: NYSTATIN 100,000 UNIT/GM POWD 15 GM TOPICAL PRN (12:15)
[2023-12-18] MEDS: HYDROcodone/APAP 10-325MG 1 EACH TAB PO PRN (12:16)
--- NOTE | 2023-12-18 12:35 | P.PN ---
Subjective Progress Note Date: 12/18/23 63 year old M with PMH of stage 4 lung CA, Type 1 DM, hypothyroid presents to the ED for shortness of breath for the past week associated with cough. In the ED he underwent extensive evaluation. T 97.3F, BP 160/92, HR 94, RR 20, O2 sat as low as 89% on 2L NC. CBC, Coag panel, CMP significant for WBC 17.5, RBC 3.8, Hg 11.6, Hct 35.3, Plt 1002, Na 128, Cl 94, glu 190, alk phos 435, alb 3.2. Trop < 0.012. EKG sinus rhythm no with ST or T wave changes. CTA chest showed small segmental PE in the RLL, mod-large large left pleural effusion, mod right pleural effusion with pleural nodularity, AMALIA mass 11.9 cm with mediastinal LAD. Patient was started on a heparin infusion and admitted for further workup and management. Pulmonary consulted for thoracentesis, chest US ordered. He underwent thoracentesis with 1.2L removed. Echo EF 55-60% with G1DD. Venous Duplex negative for DVT (pocket of fluid 4 x 1.2 x 1.5 in the right popliteal fossa). Repeat CXR with persistent pleural effusion, plans for PleurX catheter tomorrow. 12/17 Patient was seen and examined. Reports some SOB. Complains of a groin rash . CBC significant for WBC 15.3, RBC 3.63, Hg 10.9, Hct 34.5, Plt 940. Pleural fluid Cx negative so far. Maintained on heparin drip for treatment of PE. General: non toxic, no distress, appears at stated age Derm: warm, dry Head: atraumatic, normocephalic, symmetric Eyes: EOMI, no lid lag, anicteric sclera Mouth: no lip lesion, mucus membranes moist Cardiovascular: S1S2 reg, no murmur Lungs: Decreased BS bilateral, no rhonchi, no rales, no accessory muscle use Ext: no gross muscle atrophy, no edema, no contractures Neuro: no focal neuro deficits Psych: Alert, oriented, appropriate affect Based on my assessment of this patient, this patient meets a high complexity level of care. Acute hypoxic respiratory failure likely due to below Bilateral pleural effusion: Status post 1.2L fluid removal. Serum/Pleural protein ratio > 0.5 seem to indicate exudative effusion. Culture pending. Pulmonary on board. CT surgery consulted for PleurX. Pulmonary embolus: Echo as above. Heparin drip. Monitor APTT. Tinea cruris: Nystatin powder. HypoCl hypoNa: Hypovolemic versus SIADH. Leukocytosis: Possibly reactive. No signs of active infection. Meets SIRS criteria. Monitor fever profile. Normocytic anemia in the setting of malignancy Thrombocytosis in the setting of malignancy Type 1 DM: ISS. Accuchecks ACHS. Hypoglycemic precautions. History of stage 4 lung CA: Following Dr. Roblero. Oncology consulted. Hypothyroid: Synthroid 175 mcg PO QD. CODE STATUS: FULL CODE DVT Prophylaxis: Heparin drip. GI Prophylaxis: Designated medical POA if patient is not able to make medical decisions for themselves: I have reviewed the following legal consultant notes: Pulmonary, Oncology note. I have reviewed the results of the following tests: CBC, pleural fluid Cx I have ordered the following tests: I have discussed the care of this patient with the following independent historian: GENO. I have independently interpreted the following test below: CXR. Objective - Vital Signs Vital signs: Vital Signs Temp 98.2 F 12/18/23 04:09 Pulse 92 12/18/23 11:05 Resp 16 12/18/23 11:05 BP 152/88 12/18/23 11:05 Pulse Ox 98 12/18/23 11:05 FiO2 Intake & Output 12/17/23 12/18/23 12/18/23 18:59 06:59 18:59 Intake Total 1196 480 Balance 1196 480 Weight 73 kg Intake: Oral 1196 480 Other: Voiding Method Toilet Urinal # Voids 1 - Labs CBC & Chem 7: 12/18/23 10:01 12/17/23 08:15 Labs: Abnormal Lab Results - Last 24 Hours (Table) 12/17/23 12/17/23 12/18/23 Range/Units 16:49 20:05 03:52 WBC (3.8-10.6) k/uL RBC (4.30-5.90) m/uL Hgb (13.0-17.5) gm/dL Hct (39.0-53.0) % MCHC (31.0-37.0) g/dL Plt Count (150-450) k/uL Neutrophils # (1.3-7.7) k/uL Lymphocytes # (1.0-4.8) k/uL Monocytes # (0-1.0) k/uL APTT (22.0-30.0) sec POC Glucose (mg/dL) 339 H 320 H 64 L (70-110) mg/dL 12/18/23 12/18/23 12/18/23 Range/Units 06:16 09:01 09:01 WBC 15.4 H (3.8-10.6) k/uL RBC 3.56 L (4.30-5.90) m/uL Hgb 10.5 L (13.0-17.5) gm/dL Hct 34.3 L (39.0-53.0) % MCHC 30.6 L (31.0-37.0) g/dL Plt Count 897 H (150-450) k/uL Neutrophils # 12.8 H (1.3-7.7) k/uL Lymphocytes # 0.7 L (1.0-4.8) k/uL Monocytes # 1.3 H (0-1.0) k/uL APTT 31.9 H (22.0-30.0) sec POC Glucose (mg/dL) 158 H (70-110) mg/dL 12/18/23 12/18/23 Range/Units 10:01 11:08 WBC 15.3 H (3.8-10.6) k/uL RBC 3.63 L (4.30-5.90) m/uL Hgb 10.9 L (13.0-17.5) gm/dL Hct 34.5 L (39.0-53.0) % MCHC (31.0-37.0) g/dL Plt Count 940 H (150-450) k/uL Neutrophils # 12.9 H (1.3-7.7) k/uL Lymphocytes # 0.7 L (1.0-4.8) k/uL Monocytes # 1.2 H (0-1.0) k/uL APTT (22.0-30.0) sec POC Glucose (mg/dL) 168 H (70-110) mg/dL Microbiology - Last 24 Hours (Table) 12/16/23 09:25 Gram Stain - Preliminary Pleural Fluid Body Fluid Culture - Preliminary
--- NOTE | 2023-12-18 14:03 | P.PN ---
Subjective Progress Note Date: 12/18/23 This is a 63-year-old male patient with a history of tongue and neck cancer status post chemoradiation therapy completed in April 2021. The patient was recently found to have a lung mass and had undergone biopsy in August 2023 and found to have invasive moderately differentiated squamous cell carcinoma. 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 Suggestive of probable metastasis from the patient's known tongue and neck primary to the lung. MRI of the brain was negative. A PET scan from September 2023 revealed findings most consistent with a large left upper lobe FDG avid lung mass with metastatic FDG avid mediastinal/right supraclavicular and bilateral hilar adenopathy. Additional left inferior pleural surface FDG avid metastatic nodules. He had been receiving chemotherapy and was seen by his oncologist yesterday who sent him for a CT angiogram that did reveal a small subsegmental branch embolus to the basilar right lower lobe. New moderate to large left pleural effusion with atelectatic collapse of the basilar left lower lobe. New moderate right pleural effusion with adjacent atelectasis. Increasing pleural nodular thickening at the left costophrenic angle and also pleural nodularity posterior left upper lung. Additional disease progression with new pericardiac adenopathy measuring up to 2.1 cm. Was referred here to the emergency room last evening. He is seen today in consultation in the emergency department. He is currently sitting up on a stretcher. Awake and alert in no acute distress. He is dyspneic with conversation. Dyspneic with minimal exertion. He is maintaining O2 saturations in the 90s on 4 L/min per nasal cannula. White count 21.8. Hemoglobin 11.7. Platelets 1085. Sodium 128. Potassium 4.6. Bicarb 26. BUN 18. Creatinine 0.65. Glucose 116. He is currently on a heparin drip The patient is seen today December 17, 2023 in follow-up on the selective care unit. He is currently resting in bed. Awake and alert in no acute distress. Containing O2 saturations in the 90s on 2 L/min per nasal cannula. Afebrile. Hemodynamically stable. Pleural fluid culture and cytology pending. Fluid exudate with a total protein greater than 3.6, LDH 163. White count 18.9. Hemoglobin 12.2. Platelets 1085. Sodium 128. Potassium 5.1. Bicarb 30. BUN 14. Creatinine 0.68. Glucose 169. Today's chest x-ray shows recurring large left and small right pleural effusions. The patient is seen today December 18, 2023 in follow-up on the selective care unit. He is currently sitting up at the bedside. Awake and alert in no acute distress. He is maintaining O2 saturations in the 90s on room air. He is afebrile. Hemodynamically stable. White count 15.3. Hemoglobin 10.9. Platelets 940. INR 1.1. Glucose 168. He remains on a heparin drip. Plan is for possible Pleurx catheter placement tomorrow. Pleural fluid cytology is pending. Objective - Vital Signs Vital signs: Vital Signs Temp 98.2 F 12/18/23 04:09 Pulse 92 12/18/23 11:05 Resp 16 12/18/23 11:05 BP 152/88 12/18/23 11:05 Pulse Ox 98 12/18/23 11:05 FiO2 Intake & Output 12/17/23 12/18/23 12/18/23 18:59 06:59 18:59 Intake Total 1196 720 Balance 1196 720 Weight 73 kg Intake: Oral 1196 720 Other: Voiding Method Toilet Urinal # Voids 1 - Exam GENERAL EXAM: Alert, 63-year-old male, on room air, comfortable in no apparent distress. HEAD: Normocephalic. EYES: Normal reaction of pupils, equal size. NOSE: Clear with pink turbinates. THROAT: No erythema or exudates. NECK: No masses, no JVD. CHEST: No chest wall deformity. LUNGS: Equal air entry with bibasilar crackles, left greater than right, diminished left lung base. CVS: S1 and S2 normal with no audible murmur, regular rhythm. ABDOMEN: No hepatosplenomegaly, normal bowel sounds, no guarding or rigidity. SPINE: No scoliosis or deformity SKIN: No rashes CENTRAL NERVOUS SYSTEM: No focal deficits, tone is normal in all 4 extremities. EXTREMITIES: There is no peripheral edema. No clubbing, no cyanosis. Peripheral pulses are intact. - Labs CBC & Chem 7: 12/18/23 10:01 12/17/23 08:15 Labs: Abnormal Lab Results - Last 24 Hours (Table) 12/17/23 12/17/23 12/18/23 Range/Units 16:49 20:05 03:52 WBC (3.8-10.6) k/uL RBC (4.30-5.90) m/uL Hgb (13.0-17.5) gm/dL Hct (39.0-53.0) % MCHC (31.0-37.0) g/dL Plt Count (150-450) k/uL Neutrophils # (1.3-7.7) k/uL Lymphocytes # (1.0-4.8) k/uL Monocytes # (0-1.0) k/uL APTT (22.0-30.0) sec POC Glucose (mg/dL) 339 H 320 H 64 L (70-110) mg/dL 12/18/23 12/18/23 12/18/23 Range/Units 06:16 09:01 09:01 WBC 15.4 H (3.8-10.6) k/uL RBC 3.56 L (4.30-5.90) m/uL Hgb 10.5 L (13.0-17.5) gm/dL Hct 34.3 L (39.0-53.0) % MCHC 30.6 L (31.0-37.0) g/dL Plt Count 897 H (150-450) k/uL Neutrophils # 12.8 H (1.3-7.7) k/uL Lymphocytes # 0.7 L (1.0-4.8) k/uL Monocytes # 1.3 H (0-1.0) k/uL APTT 31.9 H (22.0-30.0) sec POC Glucose (mg/dL) 158 H (70-110) mg/dL 12/18/23 12/18/23 Range/Units 10:01 11:08 WBC 15.3 H (3.8-10.6) k/uL RBC 3.63 L (4.30-5.90) m/uL Hgb 10.9 L (13.0-17.5) gm/dL Hct 34.5 L (39.0-53.0) % MCHC (31.0-37.0) g/dL Plt Count 940 H (150-450) k/uL Neutrophils # 12.9 H (1.3-7.7) k/uL Lymphocytes # 0.7 L (1.0-4.8) k/uL Monocytes # 1.2 H (0-1.0) k/uL APTT (22.0-30.0) sec POC Glucose (mg/dL) 168 H (70-110) mg/dL Microbiology - Last 24 Hours (Table) 12/16/23 09:25 Gram Stain - Preliminary Pleural Fluid Body Fluid Culture - Preliminary Assessment and Plan Assessment: Acute hypoxemic respiratory failure secondary to bilateral pleural effusions left greater than right. Status post left thoracentesis December 16, 2023 with 1200 mL of cloudy yellow fluid removed. 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 completed in April 2021, new metastatic lung mass biopsied August 2023 currently undergoing chemotherapy Acute segmental pulmonary emboli of the right lower lobe secondary to above, currently on a heparin drip Leukocytosis secondary to above Thrombocytosis Hyponatremia Diabetes mellitus Hypothyroidism Plan: The patient was seen and evaluated Labs and medications reviewed Status post left-sided thoracentesis Recurring left-sided pleural effusion Possible Pleurx catheter placement Continue heparin drip for now Stable and on room air We will continue to follow I have personally seen and examined the patient, performed the documentation and the assessment and plan as written. Number of minutes spent on the visit: 10 Dictation was produced using [employer] dictation software. Please excuse any grammatical, word or spelling errors.
--- NOTE | 2023-12-18 14:43 | P.GSCN ---
History of Present Illness Consult date: 12/18/23 Reason for Consult: Recurrent left malignant pleural effusion Requesting physician: Yamilet Armstrong History of present illness: This is a 63-year-old gentleman who [facility]. The patient has a past medical history significant for tongue and neck cancer and is status post chemotherapy and radiation therapy completed in April 2021, he also has a history of insulin-dependent diabetes mellitus, thyroid disorder and a newly diagnosed left lung mass, diagnosed in August 2023, remote history of marijuana use and is a lifetime non-smoker. He underwent a biopsy of the lung mass in August 2023 which showed invasive moderately differentiated squamous cell carcinoma, consistent with HPV associated squamous cell carcinoma which was suggestive for probable metastasis from the patient's tongue and neck primary to the lung. In July 20[address] the patient [address] a CT scan of the neck/chest which revealed a large left upper lobe mass measuring 11 x 4 x 12 0.1 x 7.5 cm with associated volume loss and obstruction of the left upper lobe and bronchus. It also showed a right lower lobe density measuring 8.3 cm. In September 2023 the patient underwent a PET CT scan which showed findings most consistent with a large left upper lobe FDG avid primary cancer with metastatic FDG avid mediastinal/right supraclavicular and bilateral hilar adenopathy. It also showed additional left inferior pleural space FDG avid metastatic nodules. On December 15, 2023 the patient presented to the emergency department here at [facility] with complaints of significant shortness of breath, especially with activity. He denies any recent fever, chills, nausea, vomiting, diarrhea, headache, hemoptysis, hematemesis, chest pain/pressure. An ultrasound of his chest was completed which showed bilateral pleural effusions, and his left side was marked for a thoracentesis. Due to the findings of left pleural effusion the patient underwent a left-sided thoracentesis with 1.2 L of straw-colored fluid drained from his pleural space by Dr. Armstrong. A repeat chest x-ray was completed on December 17, 2023 showed ongoing moderate to large left and small to moderate right pleural effusions with adjacent atelectasis and/or consolidation. Subsequently due to the recurrent left pleural effusion a consult was placed to Dr. Clinton Lora for further evaluation and treatment recommendations including including possible Pleurx catheter placement. Review of Systems A review of systems was completed and negative except as mentioned in HPI. 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 CT SCAN SHOWING MASS LT LUNG. HAVING SOB History of Any Multi-Drug Resistant Organisms: None Reported Past Surgical History: Orthopedic Surgery (Right ankle surgery) Additional Past Surgical History / Comment(s): eye surgery-BILAT GLAUCOMA. 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 AGO LT EYE Past Anesthesia/Blood Transfusion Reactions: No Reported Reaction Past Psychological History: No Psychological Hx Reported Smoking Status: Never smoker Past Alcohol Use History: None Reported Past Drug Use History: None Reported Additional Drug Use History / Comment(s): Remote history of marijuana use - Past Family History Mother Family Medical History: No Reported History Father Additional Family Medical History / Comment(s): EtOH abuse Medications and Allergies Home Medications Medication Instructions Recorded Confirmed Type Multivitamins, Thera [Multivitamin 1 tab PO DAILY 09/02/21 12/16/23 History (formulary)] Levothyroxine Sodium [Synthroid] 175 mcg PO DAILY 08/30/23 12/16/23 History Dorzolamide-Timol 2.23%/0.68% 1 drop BOTH EYES BID 12/16/23 12/16/23 History [Cosopt] HYDROcodone/APAP 10-325MG [Painter 1 tab PO Q6H PRN 12/16/23 12/16/23 History 10-325] Insulin Aspart [NovoLOG Flexpen] See Protocol SQ AC-TID 12/16/23 12/16/23 History Insulin Glargine,Hum.rec.anlog 16 units SQ DAILY 12/16/23 12/16/23 History [Lantus Solostar Pen] Allergies Allergy/AdvReac Type Severity Reaction Status Date / Time No Known Allergies Allergy Verified 12/16/23 09:53 Surgical - Exam Vital Signs Temp Pulse Resp BP Pulse Ox 97.3 F L 94 20 160/92 97 12/15/23 18:21 12/15/23 18:21 12/15/23 18:21 12/15/23 18:21 12/15/23 18:21 - General well developed, well nourished, no distress, no pain, chronically ill - Eyes PERRL, normal ocular movement, no pale, no icteric - ENT normal pinna, normal nares, normal mucosa, no hearing loss, no congestion - Respiratory Essentially clear throughout, diminished to his bilateral lobes, left greater than right. No wheezes, rhonchi or crackles. Respirations are symmetrical and nonlabored. - Cardiovascular Regular rhythm and rate. S1 and S2 present, negative for S3, gallop or murmur. - Abdomen Abdomen is soft, nontender and nondistended. Active bowel sounds present all 4 abdominal quadrants. No guarding rigidity. No organomegaly appreciated. - Genitourinary Deferred - Rectum Deferred - Integumentary Skin is warm and dry. No clubbing or cyanosis is present. +1 edema to his bilateral lower extremities. no rash, no growths, no abnormal pigmentation - Neurologic No focal deficits. - Musculoskeletal Equal strength bilateral. normal gait, normal posture - Psychiatric oriented to time, oriented to person, oriented to place, speech is normal, memory intact Results - Labs 12/18/23 10:01 12/17/23 08:15 Abnormal Lab Results - Last 24 Hours (Table) 12/17/23 12/17/23 12/18/23 Range/Units 16:49 20:05 03:52 WBC (3.8-10.6) k/uL RBC (4.30-5.90) m/uL Hgb (13.0-17.5) gm/dL Hct (39.0-53.0) % MCHC (31.0-37.0) g/dL Plt Count (150-450) k/uL Neutrophils # (1.3-7.7) k/uL Lymphocytes # (1.0-4.8) k/uL Monocytes # (0-1.0) k/uL APTT (22.0-30.0) sec POC Glucose (mg/dL) 339 H 320 H 64 L (70-110) mg/dL 12/18/23 12/18/23 12/18/23 Range/Units 06:16 09:01 09:01 WBC 15.4 H (3.8-10.6) k/uL RBC 3.56 L (4.30-5.90) m/uL Hgb 10.5 L (13.0-17.5) gm/dL Hct 34.3 L (39.0-53.0) % MCHC 30.6 L (31.0-37.0) g/dL Plt Count 897 H (150-450) k/uL Neutrophils # 12.8 H (1.3-7.7) k/uL Lymphocytes # 0.7 L (1.0-4.8) k/uL Monocytes # 1.3 H (0-1.0) k/uL APTT 31.9 H (22.0-30.0) sec POC Glucose (mg/dL) 158 H (70-110) mg/dL 12/18/23 12/18/23 Range/Units 10:01 11:08 WBC 15.3 H (3.8-10.6) k/uL RBC 3.63 L (4.30-5.90) m/uL Hgb 10.9 L (13.0-17.5) gm/dL Hct 34.5 L (39.0-53.0) % MCHC (31.0-37.0) g/dL Plt Count 940 H (150-450) k/uL Neutrophils # 12.9 H (1.3-7.7) k/uL Lymphocytes # 0.7 L (1.0-4.8) k/uL Monocytes # 1.2 H (0-1.0) k/uL APTT (22.0-30.0) sec POC Glucose (mg/dL) 168 H (70-110) mg/dL Microbiology - Last 24 Hours (Table) 12/16/23 09:25 Gram Stain - Preliminary Pleural Fluid Body Fluid Culture - Preliminary - Imaging Chest x-ray: report reviewed, image reviewed Assessment and Plan Assessment: Recurrent left pleural effusion, status post left thoracentesis on December 16, 2023 with 1.2 L of fluid drained 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 He is currently up ambulating in his room. His chart and diagnostics were reviewed. His case was discussed in detail with Dr. Clinton Lroa from cardiothoracic surgery. Dr. Lora met with the patient, discussed treatment options including placement of left Pleurx catheter. Risks and benefits of the Pleurx catheter placement were reviewed with the patient by Dr. Lora, and knowing and understanding the risks the patient wished to proceed with the Pleurx catheter placement. He will be made n.p.o. after midnight. His heparin drip will have to be discontinued 2 hours prior to the procedure, this will be further discussed once we know what time the procedure will be completed at. Medical management and other comorbidities per primary care service and pulmonology service. More recommendations to follow based on patient's clinical course. Encourage use of incentive spirometry 10 times every hour while awake. Thank you Dr. Armstrong for this consult and we look forward to working with you in the care of this patient. I have personally seen and examined the patient, performed the documentation and the assessment and plan as written. Number of minutes spent on the visit: 30. BETTY Awad
[2023-12-18 16:16] LABS: Glucose,Whole Blood 296 mg/dL (70-110)
[2023-12-18] MEDS: HEPARIN SODIUM 1,000 UN/ML (10ML VL) IV PRN (18:08)
[2023-12-18 20:05] LABS: Glucose,Whole Blood 310 mg/dL (70-110)
--- NOTE | 2023-12-18 20:17 | P.PN ---
Subjective Progress Note Date: 12/18/23 Principal diagnosis: SOB, pl effusion. Sq cell lung carcinoma. In f/u today pt feels his breathing status is declining again, feels SOB with little to no activity. C/O puritis in the groin, states he has "rash" in the gluteal folds. His lower extremities are swollen, that is new. He will be placed back on heparin drip for new diagnosis of PE. Objective - Vital Signs Vital signs: Vital Signs Temp 98.2 F 12/18/23 04:09 Pulse 92 12/18/23 11:05 Resp 16 12/18/23 11:05 BP 152/88 12/18/23 11:05 Pulse Ox 98 12/18/23 11:05 FiO2 Intake & Output 12/17/23 12/18/23 12/18/23 18:59 06:59 18:59 Intake Total 1196 480 Balance 1196 480 Weight 73 kg Intake: Oral 1196 480 Other: Voiding Method Toilet Urinal # Voids 1 - Constitutional General appearance: Present: cooperative, mild distress, thin - EENT Eyes: Present: anicteric sclerae, EOMI ENT: Present: hearing grossly normal - Respiratory Respiratory: right: diminished, bilateral: CTA - Cardiovascular Rhythm: regular Heart sounds: normal: S1, S2 Abnormal Heart Sounds: Absent: systolic murmur, diastolic murmur, rub, S3 Gallop, S4 Gallop, click, other - Peripheral edema leg Peripheral Edema: bilateral: 1+ - Gastrointestinal General gastrointestinal: Present: normal bowel sounds, soft - Integumentary Integumentary Comment(s): gluteal fold has reddened skin, 4cm superficial ulceration on the lt - Neurologic Neurologic: Present: CNII-XII intact - Musculoskeletal Musculoskeletal: Present: generalized weakness, strength equal bilaterally - Psychiatric Psychiatric: Present: A&O x's 3, appropriate affect, intact judgment & insight - Labs CBC & Chem 7: 12/18/23 10:01 12/17/23 08:15 Labs: Abnormal Lab Results - Last 24 Hours (Table) 12/17/23 12/17/23 12/18/23 Range/Units 16:49 20:05 03:52 WBC (3.8-10.6) k/uL RBC (4.30-5.90) m/uL Hgb (13.0-17.5) gm/dL Hct (39.0-53.0) % MCHC (31.0-37.0) g/dL Plt Count (150-450) k/uL Neutrophils # (1.3-7.7) k/uL Lymphocytes # (1.0-4.8) k/uL Monocytes # (0-1.0) k/uL APTT (22.0-30.0) sec POC Glucose (mg/dL) 339 H 320 H 64 L (70-110) mg/dL 12/18/23 12/18/23 12/18/23 Range/Units 06:16 09:01 09:01 WBC 15.4 H (3.8-10.6) k/uL RBC 3.56 L (4.30-5.90) m/uL Hgb 10.5 L (13.0-17.5) gm/dL Hct 34.3 L (39.0-53.0) % MCHC 30.6 L (31.0-37.0) g/dL Plt Count 897 H (150-450) k/uL Neutrophils # 12.8 H (1.3-7.7) k/uL Lymphocytes # 0.7 L (1.0-4.8) k/uL Monocytes # 1.3 H (0-1.0) k/uL APTT 31.9 H (22.0-30.0) sec POC Glucose (mg/dL) 158 H (70-110) mg/dL 12/18/23 12/18/23 Range/Units 10:01 11:08 WBC 15.3 H (3.8-10.6) k/uL RBC 3.63 L (4.30-5.90) m/uL Hgb 10.9 L (13.0-17.5) gm/dL Hct 34.5 L (39.0-53.0) % MCHC (31.0-37.0) g/dL Plt Count 940 H (150-450) k/uL Neutrophils # 12.9 H (1.3-7.7) k/uL Lymphocytes # 0.7 L (1.0-4.8) k/uL Monocytes # 1.2 H (0-1.0) k/uL APTT (22.0-30.0) sec POC Glucose (mg/dL) 168 H (70-110) mg/dL Microbiology - Last 24 Hours (Table) 12/16/23 09:25 Gram Stain - Preliminary Pleural Fluid Body Fluid Culture - Preliminary Assessment and Plan (1) Squamous cell lung cancer Current Visit: Yes Status: Acute Priority: High Code(s): C34.90 - MALIGNANT NEOPLASM OF UNSP PART OF UNSP BRONCHUS OR LUNG SNOMED Code(s): 732050016 (2) Pleural effusion Current Visit: Yes Status: Acute Priority: High Code(s): J90 - PLEURAL EFFUSION, NOT ELSEWHERE CLASSIFIED SNOMED Code(s): 49478818 (3) Pulmonary embolism Current Visit: Yes Status: Acute Priority: High Code(s): I26.99 - OTHER PULMONARY EMBOLISM WITHOUT ACUTE COR PULMONALE SNOMED Code(s): 75657008 Plan: Metastatic NSCLC -New diagnosis -S/P 1st cycle of carbo/alimta/keytruda -No plans at this time to modify treatment. Anticipate next cycle starting on t rola Recurrent pleural effusion -Pt has been assessed by Pulmonary and CTS. Plans for pleurex catheter tomorrow. -Anticipate after another cycle or 2 of treatment the pleural fluid will either slow in re-accumulation,or stop, for some time. PE - findings of bilateral pleural effusion as well as small PE. -Doppler of BLE, neg for DVT -Reviewed case briefly with Pulm DNP, heparin drip restarted, transition ot DOAC after procedures are completed. -Rx for DOAC sent with consult to print line tailer to verify copay Thrombocytosis and leukocytosis, likely reactive, trending down. Cont to monitor for now. Doctor attests: I performed a history and physical examination of this patient, developed impression and plan of care. Discussed with dictator. I agree with dictators note, documented as a scribe.
[2023-12-19 06:29] LABS: Glucose,Whole Blood 119 mg/dL (70-110)
[2023-12-19 06:47] LABS: Basophils # (A) 0.1 k/uL (0-0.2); Basophils % (A) 0 %; Eosinophils # (A) 0.3 k/uL (0-0.7); Eosinophils % (A) 2 %; HCT 34.3 % (39.0-53.0); HGB 10.5 gm/dL (13.0-17.5); Lymphocytes # (A) 0.7 k/uL (1.0-4.8); Lymphocytes % (A) 6 %; MCH 29.5 pg (25.0-35.0); MCHC 30.8 g/dL (31.0-37.0); MCV 95.8 fL (80.0-100.0); Mean Platelet Volume 6.8; Monocytes # (A) 1.4 k/uL (0-1.0); Monocytes % (A) 10 %; Neutrophils # (A) 10.9 k/uL (1.3-7.7); Neutrophils % (A) 81 %; Platelet Count 953 k/uL (150-450); RBC 3.58 m/uL (4.30-5.90); WBC 13.4 k/uL (3.8-10.6)
[2023-12-19 06:52] LABS: INR 1.1 (<1.2); Prothrombin Time 11.5 sec (10.0-12.5)
[2023-12-19 07:28] LABS: Glucose,Whole Blood 73 mg/dL (70-110)
[2023-12-19 10:56] LABS: Basophils % (A) 0 %; Eosinophils # (A) 0.2 k/uL (0-0.7); Eosinophils % (A) 1 %; HCT 35.4 % (39.0-53.0); Lymphocytes # (A) 0.6 k/uL (1.0-4.8); Lymphocytes % (A) 5 %; MCH 29.4 pg (25.0-35.0); MCHC 31.1 g/dL (31.0-37.0); MCV 94.4 fL (80.0-100.0); Monocytes # (A) 0.8 k/uL (0-1.0); Monocytes % (A) 6 %; Neutrophils # (A) 11.5 k/uL (1.3-7.7); Neutrophils % (A) 87 %; Platelet Count 994 k/uL (150-450); RBC 3.75 m/uL (4.30-5.90); RDW 15.2 % (11.5-15.5); WBC 13.3 k/uL (3.8-10.6)
[2023-12-19 11:02] LABS: ALT 27 U/L (4-49); AST 45 U/L (17-59); African American GFR (CKD) >90 (>60 ml/min/1.73 sqM); Albumin 2.9 g/dL (3.5-5.0); Alkaline Phosphatase 449 U/L (38-126); Anion Gap 2 mmol/L; Blood Urea Nitrogen 16 mg/dL (9-20); Calcium 8.7 mg/dL (8.4-10.2); Carbon Dioxide 33 mmol/L (22-30); Chloride 90 mmol/L (98-107); Glucose 104 mg/dL (74-99); Non-African American GFR(CKD) >90 (>60 ml/min/1.73 sqM); Sodium 125 mmol/L (137-145); Total Bilirubin 0.4 mg/dL (0.2-1.3)
[2023-12-19 11:19] LABS: Glucose,Whole Blood 85 mg/dL (70-110)
--- NOTE | 2023-12-19 11:49 | P.PN ---
Subjective Progress Note Date: 12/19/23 63 year old M with PMH of stage 4 lung CA, Type 1 DM, hypothyroid presents to the ED for shortness of breath for the past week associated with cough. In the ED he underwent extensive evaluation. T 97.3F, BP 160/92, HR 94, RR 20, O2 sat as low as 89% on 2L NC. CBC, Coag panel, CMP significant for WBC 17.5, RBC 3.8, Hg 11.6, Hct 35.3, Plt 1002, Na 128, Cl 94, glu 190, alk phos 435, alb 3.2. Trop < 0.012. EKG sinus rhythm no with ST or T wave changes. CTA chest showed small segmental PE in the RLL, mod-large large left pleural effusion, mod right pleural effusion with pleural nodularity, AMALIA mass 11.9 cm with mediastinal LAD. Patient was started on a heparin infusion and admitted for further workup and management. Pulmonary consulted for thoracentesis, chest US ordered. He underwent thoracentesis with 1.2L removed with Pulmonary. Echo EF 55-60% with G1DD. Venous Duplex negative for DVT (pocket of fluid 4 x 1.2 x 1.5 in the right popliteal fossa). Repeat CXR with persistent pleural effusion, plans for PleurX catheter tomorrow. 12/18 Patient was seen and examined. No complaints. CBC and BMP significant for WBC 13.3, RBC 3.75, Hg 11, Hct 35.4, Plt 994, Na 125, Cl 90, bicarb 33, Cr 0.64, glu 104, alk phos 449, alb 2.9. Pleural fluid Cx negative so far. Maintained on heparin drip for treatment of PE. General: non toxic, no distress, appears at stated age Derm: warm, dry Head: atraumatic, normocephalic, symmetric Eyes: EOMI, no lid lag, anicteric sclera Mouth: no lip lesion, mucus membranes moist Cardiovascular: S1S2 reg, no murmur Lungs: Decreased BS bilateral, no rhonchi, no rales, no accessory muscle use Ext: no gross muscle atrophy, no edema, no contractures Neuro: no focal neuro deficits Psych: Alert, oriented, appropriate affect Based on my assessment of this patient, this patient meets a high complexity level of care. Acute hypoxic respiratory failure likely due to below Bilateral pleural effusion: Status post 1.2L fluid removal. Serum/Pleural protein ratio > 0.5 seem to indicate exudative effusion. Culture and cytology pending. Pulmonary on board. CT surgery consulted for PleurX later on today. Pulmonary embolus: Echo as above. Heparin drip. Monitor APTT. Tinea cruris: Nystatin powder. HypoCl hypoNa: Hypovolemic versus SIADH. Worsened with IV hydration. Obtain SOsm, UOsm, Roro. Leukocytosis: Possibly reactive. No signs of active infection. Meets SIRS criteria. Monitor fever profile. Normocytic anemia in the setting of malignancy Thrombocytosis in the setting of malignancy Type 1 DM: ISS. Accuchecks ACHS. Hypoglycemic precautions. History of stage 4 lung CA: Following Dr. Roblero. Oncology on board. Hypothyroid: Synthroid 175 mcg PO QD. CODE STATUS: FULL CODE DVT Prophylaxis: Heparin drip. GI Prophylaxis: Designated medical POA if patient is not able to make medical decisions for themselves: I have reviewed the following process improvement consultant notes: CT surgery note. I have reviewed the results of the following tests: CBC, CMP. I have ordered the following tests: SOsm, UOSm, Roro, BMP in the AM. I have discussed the care of this patient with the following independent historian: GENO. I have independently interpreted the following test below: Objective - Vital Signs Vital signs: Vital Signs Temp 98.3 F 12/19/23 10:33 Pulse 90 12/19/23 11:15 Resp 16 12/19/23 11:15 BP 119/79 12/19/23 11:15 Pulse Ox 96 12/19/23 11:15 FiO2 Intake & Output 12/18/23 12/19/23 12/19/23 18:59 06:59 18:59 Intake Total 1020.006 328.829 Balance 1020.006 328.829 Weight 73 kg 73.2 kg Intake: IV 129.94 Heparin Sod,Pork in 0.45% 129.94 NaCl 25,000 unit In 0.45 % NaCl 1 250ml.bag @ 12 UNITS/KG/HR 8.76 mls/hr IV .Q24H [facility] Rx#: [id number] Intake, IV Titration 60.006 78.889 Amount Heparin Sod,Pork in 0.45% 60.006 78.889 NaCl 25,000 unit In 0.45 % NaCl 1 250ml.bag @ 12 UNITS/KG/HR 8.76 mls/hr IV .Q24H [facility] Rx#: [id number] Oral 960 120 Other: # Voids 1 - Labs CBC & Chem 7: 12/19/23 10:30 12/19/23 10:30 Labs: Abnormal Lab Results - Last 24 Hours (Table) 12/18/23 12/18/23 12/18/23 Range/Units 16:15 17:24 20:04 WBC (3.8-10.6) k/uL RBC (4.30-5.90) m/uL Hgb (13.0-17.5) gm/dL Hct (39.0-53.0) % MCHC (31.0-37.0) g/dL Plt Count (150-450) k/uL Neutrophils # (1.3-7.7) k/uL Lymphocytes # (1.0-4.8) k/uL Monocytes # (0-1.0) k/uL APTT 35.6 H (22.0-30.0) sec Sodium (137-145) mmol/L Chloride (98-107) mmol/L Carbon Dioxide (22-30) mmol/L Creatinine (0.66-1.25) mg/dL Glucose (74-99) mg/dL POC Glucose (mg/dL) 296 H 310 H (70-110) mg/dL Alkaline Phosphatase (38-126) U/L Total Protein (6.3-8.2) g/dL Albumin (3.5-5.0) g/dL 12/19/23 12/19/23 12/19/23 Range/Units 00:23 05:23 05:23 WBC 13.4 H (3.8-10.6) k/uL RBC 3.58 L (4.30-5.90) m/uL Hgb 10.5 L (13.0-17.5) gm/dL Hct 34.3 L (39.0-53.0) % MCHC 30.8 L (31.0-37.0) g/dL Plt Count 953 H (150-450) k/uL Neutrophils # 10.9 H (1.3-7.7) k/uL Lymphocytes # 0.7 L (1.0-4.8) k/uL Monocytes # 1.4 H (0-1.0) k/uL APTT 36.4 H 62.7 H (22.0-30.0) sec Sodium (137-145) mmol/L Chloride (98-107) mmol/L Carbon Dioxide (22-30) mmol/L Creatinine (0.66-1.25) mg/dL Glucose (74-99) mg/dL POC Glucose (mg/dL) (70-110) mg/dL Alkaline Phosphatase (38-126) U/L Total Protein (6.3-8.2) g/dL Albumin (3.5-5.0) g/dL 12/19/23 12/19/23 12/19/23 Range/Units 06:27 10:30 10:30 WBC 13.3 H (3.8-10.6) k/uL RBC 3.75 L (4.30-5.90) m/uL Hgb 11.0 L (13.0-17.5) gm/dL Hct 35.4 L (39.0-53.0) % MCHC (31.0-37.0) g/dL Plt Count 994 H (150-450) k/uL Neutrophils # 11.5 H (1.3-7.7) k/uL Lymphocytes # 0.6 L (1.0-4.8) k/uL Monocytes # (0-1.0) k/uL APTT (22.0-30.0) sec Sodium 125 L (137-145) mmol/L Chloride 90 L (98-107) mmol/L Carbon Dioxide 33 H (22-30) mmol/L Creatinine 0.64 L (0.66-1.25) mg/dL Glucose 104 H (74-99) mg/dL POC Glucose (mg/dL) 119 H (70-110) mg/dL Alkaline Phosphatase 449 H (38-126) U/L Total Protein 6.0 L (6.3-8.2) g/dL Albumin 2.9 L (3.5-5.0) g/dL Microbiology - Last 24 Hours (Table) 12/16/23 09:25 Gram Stain - Preliminary Pleural Fluid Body Fluid Culture - Preliminary
[2023-12-19] MEDS ORDERED: MIDAZOLAM 2 MG/2 ML VIAL ONE (12:06)
[2023-12-19] MEDS ORDERED: KETAMINE HCL IN 0.9 % NACL 50 MG/5 ML SYRINGE ONE (12:06)
[2023-12-19] MEDS ORDERED: fentaNYL (PF) 50 MCG/ML 2 ML AMP ONE (12:06)
[2023-12-19] MEDS ORDERED: PROPOFOL 10 MG/ML 20 ML VIAL IV ONE (12:06)
[2023-12-19] MEDS: LIDOCAINE 1% INJ 10MG/ML (20 ML MDV) SQ ONE (12:10)
--- NOTE | 2023-12-19 12:10 | P.PN ---
Subjective Progress Note Date: 12/19/23 Principal diagnosis: SOB, pl effusion. Sq cell lung carcinoma. In f/u today pt getting into shower, plans for pleurex drain placement today. O2 are stable. No new c/o. No progressive rash in groin or gluteal folds reported Objective - Vital Signs Vital signs: Vital Signs Temp 98.3 F 12/19/23 10:33 Pulse 90 12/19/23 11:15 Resp 16 12/19/23 11:15 BP 119/79 12/19/23 11:15 Pulse Ox 96 12/19/23 11:15 FiO2 Intake & Output 12/18/23 12/19/23 12/19/23 18:59 06:59 18:59 Intake Total 1020.006 328.829 Balance 1020.006 328.829 Weight 73 kg 73.2 kg Intake: IV 129.94 Heparin Sod,Pork in 0.45% 129.94 NaCl 25,000 unit In 0.45 % NaCl 1 250ml.bag @ 12 UNITS/KG/HR 8.76 mls/hr IV .Q24H [facility] Rx#: [id number] Intake, IV Titration 60.006 78.889 Amount Heparin Sod,Pork in 0.45% 60.006 78.889 NaCl 25,000 unit In 0.45 % NaCl 1 250ml.bag @ 12 UNITS/KG/HR 8.76 mls/hr IV .Q24H [facility] Rx#: [id number] Oral 960 120 Other: # Voids 1 - Constitutional Constitutional Comment(s): Pt was in bathroom, able to hear and responded appropriately, no SOB noted in voice - Labs CBC & Chem 7: 12/19/23 10:30 12/19/23 10:30 Labs: Abnormal Lab Results - Last 24 Hours (Table) 12/18/23 12/18/23 12/18/23 Range/Units 16:15 17:24 20:04 WBC (3.8-10.6) k/uL RBC (4.30-5.90) m/uL Hgb (13.0-17.5) gm/dL Hct (39.0-53.0) % MCHC (31.0-37.0) g/dL Plt Count (150-450) k/uL Neutrophils # (1.3-7.7) k/uL Lymphocytes # (1.0-4.8) k/uL Monocytes # (0-1.0) k/uL APTT 35.6 H (22.0-30.0) sec Sodium (137-145) mmol/L Chloride (98-107) mmol/L Carbon Dioxide (22-30) mmol/L Creatinine (0.66-1.25) mg/dL Glucose (74-99) mg/dL POC Glucose (mg/dL) 296 H 310 H (70-110) mg/dL Alkaline Phosphatase (38-126) U/L Total Protein (6.3-8.2) g/dL Albumin (3.5-5.0) g/dL 12/19/23 12/19/23 12/19/23 Range/Units 00:23 05:23 05:23 WBC 13.4 H (3.8-10.6) k/uL RBC 3.58 L (4.30-5.90) m/uL Hgb 10.5 L (13.0-17.5) gm/dL Hct 34.3 L (39.0-53.0) % MCHC 30.8 L (31.0-37.0) g/dL Plt Count 953 H (150-450) k/uL Neutrophils # 10.9 H (1.3-7.7) k/uL Lymphocytes # 0.7 L (1.0-4.8) k/uL Monocytes # 1.4 H (0-1.0) k/uL APTT 36.4 H 62.7 H (22.0-30.0) sec Sodium (137-145) mmol/L Chloride (98-107) mmol/L Carbon Dioxide (22-30) mmol/L Creatinine (0.66-1.25) mg/dL Glucose (74-99) mg/dL POC Glucose (mg/dL) (70-110) mg/dL Alkaline Phosphatase (38-126) U/L Total Protein (6.3-8.2) g/dL Albumin (3.5-5.0) g/dL 12/19/23 12/19/23 12/19/23 Range/Units 06:27 10:30 10:30 WBC 13.3 H (3.8-10.6) k/uL RBC 3.75 L (4.30-5.90) m/uL Hgb 11.0 L (13.0-17.5) gm/dL Hct 35.4 L (39.0-53.0) % MCHC (31.0-37.0) g/dL Plt Count 994 H (150-450) k/uL Neutrophils # 11.5 H (1.3-7.7) k/uL Lymphocytes # 0.6 L (1.0-4.8) k/uL Monocytes # (0-1.0) k/uL APTT (22.0-30.0) sec Sodium 125 L (137-145) mmol/L Chloride 90 L (98-107) mmol/L Carbon Dioxide 33 H (22-30) mmol/L Creatinine 0.64 L (0.66-1.25) mg/dL Glucose 104 H (74-99) mg/dL POC Glucose (mg/dL) 119 H (70-110) mg/dL Alkaline Phosphatase 449 H (38-126) U/L Total Protein 6.0 L (6.3-8.2) g/dL Albumin 2.9 L (3.5-5.0) g/dL Microbiology - Last 24 Hours (Table) 12/16/23 09:25 Gram Stain - Preliminary Pleural Fluid Body Fluid Culture - Preliminary Assessment and Plan (1) Squamous cell lung cancer Current Visit: Yes Status: Acute Priority: High Code(s): C34.90 - MALIGNANT NEOPLASM OF UNSP PART OF UNSP BRONCHUS OR LUNG SNOMED Code(s): 279997019 (2) Pleural effusion Current Visit: Yes Status: Acute Priority: High Code(s): J90 - PLEURAL EFFUSION, NOT ELSEWHERE CLASSIFIED SNOMED Code(s): 50551802 (3) Pulmonary embolism Current Visit: Yes Status: Acute Priority: High Code(s): I26.99 - OTHER PULMONARY EMBOLISM WITHOUT ACUTE COR PULMONALE SNOMED Code(s): 51675980 Plan: Metastatic NSCLC -New diagnosis -S/P 1st cycle of carbo/alimta/keytruda -No plans at this time to modify treatment. Anticipate next cycle starting on time Recurrent pleural effusion -Pt has been assessed by Pulmonary and CTS. Plans for pleurex catheter today. -Anticipate after another cycle or 2 of treatment the pleural fluid will either slow in re-accumulation, or stop, for some time. PE -findings of bilateral pleural effusion as well as small PE. -Doppler of BLE, neg for DVT -Heparin drip with transition ot DOAC after procedures are completed. -Rx for DOAC sent with consult to local intermodal truck driver to verify copay Thrombocytosis and leukocytosis, likely reactive, stable today, may increase after procedure today. No acute intervention for now. Doctor attests: I performed a history and physical examination of this patient, developed impression and plan of care. Discussed with dictator. I agree with dictators note, documented as a scribe.
[2023-12-19] MEDS: IV FLUID CONTINUATION 1,000 ML IV ONE (12:15)
--- NOTE | 2023-12-19 12:54 | P.PN ---
Subjective Progress Note Date: 12/19/23 This is a 63-year-old male patient with a history of tongue and neck cancer status post chemoradiation therapy completed in April 2021. The patient was recently found to have a lung mass and had undergone biopsy in August 2023 and found to have invasive moderately differentiated squamous cell carcinoma. 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 Suggestive of probable metastasis from the patient's known tongue and neck primary to the lung. MRI of the brain was negative. A PET scan from September 2023 revealed findings most consistent with a large left upper lobe FDG avid lung mass with metastatic FDG avid mediastinal/right supraclavicular and bilateral hilar adenopathy. Additional left inferior pleural surface FDG avid metastatic nodules. He had been receiving chemotherapy and was seen by his oncologist yesterday who sent him for a CT angiogram that did reveal a small subsegmental branch embolus to the basilar right lower lobe. New moderate to large left pleural effusion with atelectatic collapse of the basilar left lower lobe. New moderate right pleural effusion with adjacent atelectasis. Increasing pleural nodular thickening at the left costophrenic angle and also pleural nodularity posterior left upper lung. Additional disease progression with new pericardiac adenopathy measuring up to 2.1 cm. Was referred here to the emergency room last evening. He is seen today in consultation in the emergency department. He is currently sitting up on a stretcher. Awake and alert in no acute distress. He is dyspneic with conversation. Dyspneic with minimal exertion. He is maintaining O2 saturations in the 90s on 4 L/min per nasal cannula. White count 21.8. Hemoglobin 11.7. Platelets 1085. Sodium 128. Potassium 4.6. Bicarb 26. BUN 18. Creatinine 0.65. Glucose 116. He is currently on a heparin drip The patient is seen today December 17, 2023 in follow-up on the selective care unit. He is currently resting in bed. Awake and alert in no acute distress. Containing O2 saturations in the 90s on 2 L/min per nasal cannula. Afebrile. Hemodynamically stable. Pleural fluid culture and cytology pending. Fluid exudate with a total protein greater than 3.6, LDH 163. White count 18.9. Hemoglobin 12.2. Platelets 1085. Sodium 128. Potassium 5.1. Bicarb 30. BUN 14. Creatinine 0.68. Glucose 169. Today's chest x-ray shows recurring large left and small right pleural effusions. The patient is seen today December 18, 2023 in follow-up on the selective care unit. He is currently sitting up at the bedside. Awake and alert in no acute distress. He is maintaining O2 saturations in the 90s on room air. He is afebrile. Hemodynamically stable. White count 15.3. Hemoglobin 10.9. Platelets 940. INR 1.1. Glucose 168. He remains on a heparin drip. Plan is for possible Pleurx catheter placement tomorrow. Pleural fluid cytology is pending. The patient is seen today December 19, 2023 in follow-up on the selective care unit. He is currently up ambulating in his room. Awake and alert in no acute distress. Maintaining good O2 saturation in the 90s on room air. He is continued on a heparin drip. Plan is for Pleurx catheter placement possibly today. Pleural fluid cultures and cytology pending. White count 13.3. H emoglobin 11.0. Platelets 994. Sodium 125. Potassium 5.0. Bicarb 33. BUN 16. Creatinine 0.64. Glucose 104. Objective - Vital Signs Vital signs: Vital Signs Temp 97.7 F 12/19/23 11:55 Pulse 92 12/19/23 11:55 Resp 16 12/19/23 11:55 BP 146/90 12/19/23 11:55 Pulse Ox 96 12/19/23 11:55 FiO2 Intake & Output 12/18/23 12/19/23 12/19/23 18:59 06:59 18:59 Intake Total 1020.006 328.829 200 Output Total 3 Balance 1020.006 328.829 197 Weight 73 kg 73.2 kg Intake: IV 129.94 200 Heparin Sod,Pork in 0.45% 129.94 NaCl 25,000 unit In 0.45 % NaCl 1 250ml.bag @ 12 UNITS/KG/HR 8.76 mls/hr IV .Q24H [facility] Rx#: [id number] Intake, IV Titration 60.006 78.889 Amount Heparin Sod,Pork in 0.45% 60.006 78.889 NaCl 25,000 unit In 0.45 % NaCl 1 250ml.bag @ 12 UNITS/KG/HR 8.76 mls/hr IV .Q24H [facility] Rx#: [id number] Oral 960 120 Output: Estimated Blood Loss 3 Other: # Voids 1 - Exam GENERAL EXAM: Alert, 63-year-old male, up ambulating in his room on room air, in no apparent distress. HEAD: Normocephalic. EYES: Normal reaction of pupils, equal size. NOSE: Clear with pink turbinates. THROAT: No erythema or exudates. NECK: No masses, no JVD. CHEST: No chest wall deformity. LUNGS: Equal air entry with bibasilar crackles, left greater than right, diminished left lung base. CVS: S1 and S2 normal with no audible murmur, regular rhythm. ABDOMEN: No hepatosplenomegaly, normal bowel sounds, no guarding or rigidity. SPINE: No scoliosis or deformity SKIN: No rashes CENTRAL NERVOUS SYSTEM: No focal deficits, tone is normal in all 4 extremities. EXTREMITIES: There is no peripheral edema. No clubbing, no cyanosis. Peripheral pulses are intact. - Labs CBC & Chem 7: 12/19/23 10:30 12/19/23 10:30 Labs: Abnormal Lab Results - Last 24 Hours (Table) 12/18/23 12/18/23 12/18/23 Range/Units 16:15 17:24 20:04 WBC (3.8-10.6) k/uL RBC (4.30-5.90) m/uL Hgb (13.0-17.5) gm/dL Hct (39.0-53.0) % MCHC (31.0-37.0) g/dL Plt Count (150-450) k/uL Neutrophils # (1.3-7.7) k/uL Lymphocytes # (1.0-4.8) k/uL Monocytes # (0-1.0) k/uL APTT 35.6 H (22.0-30.0) sec Sodium (137-145) mmol/L Chloride (98-107) mmol/L Carbon Dioxide (22-30) mmol/L Creatinine (0.66-1.25) mg/dL Glucose (74-99) mg/dL POC Glucose (mg/dL) 296 H 310 H (70-110) mg/dL Alkaline Phosphatase (38-126) U/L Total Protein (6.3-8.2) g/dL Albumin (3.5-5.0) g/dL 12/19/23 12/19/23 12/19/23 Range/Units 00:23 05:23 05:23 WBC 13.4 H (3.8-10.6) k/uL RBC 3.58 L (4.30-5.90) m/uL Hgb 10.5 L (13.0-17.5) gm/dL Hct 34.3 L (39.0-53.0) % MCHC 30.8 L (31.0-37.0) g/dL Plt Count 953 H (150-450) k/uL Neutrophils # 10.9 H (1.3-7.7) k/uL Lymphocytes # 0.7 L (1.0-4.8) k/uL Monocytes # 1.4 H (0-1.0) k/uL APTT 36.4 H 62.7 H (22.0-30.0) sec Sodium (137-145) mmol/L Chloride (98-107) mmol/L Carbon Dioxide (22-30) mmol/L Creatinine (0.66-1.25) mg/dL Glucose (74-99) mg/dL POC Glucose (mg/dL) (70-110) mg/dL Alkaline Phosphatase (38-126) U/L Total Protein (6.3-8.2) g/dL Albumin (3.5-5.0) g/dL 12/19/23 12/19/23 12/19/23 Range/Units 06:27 10:30 10:30 WBC 13.3 H (3.8-10.6) k/uL RBC 3.75 L (4.30-5.90) m/uL Hgb 11.0 L (13.0-17.5) gm/dL Hct 35.4 L (39.0-53.0) % MCHC (31.0-37.0) g/dL Plt Count 994 H (150-450) k/uL Neutrophils # 11.5 H (1.3-7.7) k/uL Lymphocytes # 0.6 L (1.0-4.8) k/uL Monocytes # (0-1.0) k/uL APTT (22.0-30.0) sec Sodium 125 L (137-145) mmol/L Chloride 90 L (98-107) mmol/L Carbon Dioxide 33 H (22-30) mmol/L Creatinine 0.64 L (0.66-1.25) mg/dL Glucose 104 H (74-99) mg/dL POC Glucose (mg/dL) 119 H (70-110) mg/dL Alkaline Phosphatase 449 H (38-126) U/L Total Protein 6.0 L (6.3-8.2) g/dL Albumin 2.9 L (3.5-5.0) g/dL Microbiology - Last 24 Hours (Table) 12/16/23 09:25 Gram Stain - Preliminary Pleural Fluid Body Fluid Culture - Preliminary Assessment and Plan Assessment: Acute hypoxemic respiratory failure secondary to bilateral pleural effusions left greater than right. Recovered and on room air. Status post left thoracentesis December 16, 2023 with 1200 mL of cloudy yellow fluid removed. 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 completed in April 2021, new metastatic lung mass biopsied August 2023 currently undergoing chemotherapy Acute segmental pulmonary emboli of the right lower lobe secondary to above, currently on a heparin drip Leukocytosis secondary to above Thrombocytosis Hyponatremia Diabetes mellitus Hypothyroidism Plan: The patient was seen and evaluated Labs and medications reviewed Status post left-sided thoracentesis Cultures and cytology pending Recurring left-sided pleural effusion Pleurx catheter placement possibly today Continue heparin drip for now I have personally seen and examined the patient, performed the documentation and the assessment and plan as written. Number of minutes spent on the visit: 10 Dictation was produced using [employer] dictation software. Please excuse any grammatical, word or spelling errors.
--- NOTE | 2023-12-19 13:25 | P.OP ---
Date of Procedure: 12/19/23 Preoperative Diagnosis: Recurrent malignant effusion left pleural space secondary to primary head and neck cancer. Postoperative Diagnosis: Same Procedure(s) Performed: Left Pleurx catheter placement Implants: Pleurx catheter Anesthesia: MAC Surgeon: Clinton Lora Estimated Blood Loss (ml): 3 IV fluids (ml): 100 Urine output (ml): 0 Pathology: none sent Condition: stable Disposition: PACU Indications for Procedure: 63-year-old male presents with shortness of breath. He has recently been tapped for left pleural effusion. This is recurrent. It is positive for metastatic carcinoma consistent with his primary diagnosis of head neck cancer. Operative Findings: Drained 900 cc of serosanguineous fluid. Chest x-ray appeared improved on completion. Description of Procedure: Patient was brought to the operating room placed on the operating table. The head of the bed was elevated for patient comfort. The left chest and left upper quadrant were sterilely prepped and draped. 1% lidocaine was used for anesthesia. IV sedation was given. The skin was anesthetized in the anterior axillary line overlying the seventh interspace. Fluid was identified at this level using a skinny needle. The tract was anesthetized. 18-gauge needle was used to puncture the pleural space here. Guidewire was threaded into the pleural space under fluoroscopic guidance. Puncture site was enlarged to just over a centimeter with an 11 blade. Subcutaneous space was dissected out with clamp for the catheter to comfortably turn. Counterincision was made in the left upper quadrant under lidocaine anesthesia. PleurX catheter was tunneled from this exit site into the chest site and the subcutaneous cuff was positioned just under the skin at the exit site. Introducer and dilator were placed over the guidewire under fluoroscopic guidance and through the introducer sheath the catheter was threaded into the pleural space under fluoroscopic guidance. Int roducer sheath was split and removed. Catheter was connected to suction and drained nearly 900 cc of fluid. Catheter was secured at its exit site with a 2- 0 silk suture. The entry site was closed with 4-0 Vicryl subcuticular stitch. Catheter was capped and placed in a standard Pleurx dressing. Skin glue and a Band-Aid were applied at the entry site. Fluoroscopy showed good expansion of the lung. Patient was transferred to recovery room.
--- NOTE | 2023-12-19 13:57 | XR ---
EXAMINATION TYPE: XR chest 1V portable DATE OF EXAM: 12/19/2023 Comparison: 12/17/2023 Clinical History: 63-year-old male post Pleurx Findings: The heart margins are obscured by adjacent pleural parenchymal opacity. Left basilar pleural catheter is in place. There is near complete whiteout of the left hemithorax secondary enlarging pleural effu karlene. Increasing now moderate right pleural effusion also demonstrated. Impression: 1. Increasing, now moderate right-sided pleural effusion. 2. Increasing large left pleural effusion with opacification throughout the left hemithorax. Pleural catheter noted at the left base. [facility], , 12/19/2023 1:55 PM
--- NOTE | 2023-12-19 14:11 | FL ---
EXAMINATION TYPE: FL guidance operating room DATE OF EXAM: 12/19/2023 Comparison: None Clinical History: 63-year-old male PLEURAL EFFUSION, PULMONARY EMBOLISM FLUOROSCOPY: left side Pleurx catheter placement. FL time 7.9 seconds. DAP [id number]. [address] Lora. [facility], Workstation: 3, 12/19/2023 2:08 PM
[2023-12-19 16:20] LABS: Glucose,Whole Blood 138 mg/dL (70-110)
[2023-12-19 18:24] LABS: Glucose,Whole Blood 205 mg/dL (70-110)
[2023-12-19 20:31] LABS: Glucose,Whole Blood 218 mg/dL (70-110)
[2023-12-19 23:31] LABS: Glucose,Whole Blood 230 mg/dL (70-110)
[2023-12-20 06:19] LABS: Glucose,Whole Blood 142 mg/dL (70-110)
--- NOTE | 2023-12-20 07:06 | XR ---
EXAMINATION TYPE: XR chest 1V portable DATE OF EXAM: 12/20/2023 CLINICAL HISTORY: Left Pleurx. TECHNIQUE: Single AP portable upright view of the chest is obtained. COMPARISON: Chest x-ray from one day earlier FINDINGS: There is persistent left basilar pleural drainage catheter. Persistent left lung increased opacity. Stable moderate-sized right pleural effusion. Cardiac silhouette size is stable. Osseous st ructures are intact. IMPRESSION: Stable right-sided pleural effusion. Stable left basilar chest tube with likely small to moderate-sized left-sided pleural fluid collection. There is diffuse left lung acute infiltrate and/o r edema redemonstrated. No significant change from most recent x-ray. [facility], , 12/20/2023 7:04 AM
[2023-12-20 10:05] LABS: HCT 34.8 % (39.0-53.0); HGB 10.9 gm/dL (13.0-17.5); Hypochromasia Slight; MCH 30.3 pg (25.0-35.0); MCHC 31.4 g/dL (31.0-37.0); MCV 96.5 fL (80.0-100.0); Mean Platelet Volume 6.7; Platelet Count 988 k/uL (150-450); RDW 14.8 % (11.5-15.5); WBC 14.1 k/uL (3.8-10.6)
[2023-12-20 10:24] LABS: African American GFR (CKD) >90 (>60 ml/min/1.73 sqM); Anion Gap 5 mmol/L; Blood Urea Nitrogen 18 mg/dL (9-20); Calcium 8.7 mg/dL (8.4-10.2); Carbon Dioxide 31 mmol/L (22-30); Chloride 88 mmol/L (98-107); Glucose 262 mg/dL (74-99); Non-African American GFR(CKD) >90 (>60 ml/min/1.73 sqM); Potassium 5.6 mmol/L (3.5-5.1); Sodium 124 mmol/L (137-145)
[2023-12-20 11:09] LABS: Glucose,Whole Blood 278 mg/dL (70-110)
--- NOTE | 2023-12-20 11:48 | P.PN ---
Subjective Progress Note Date: 12/20/23 Principal diagnosis: SOB, pl effusion. Sq cell lung carcinoma. In f/u today pt getting around room independently, feels a little dizy when he changes position-told to change positions slowly and to wait before moving. He did drain fluid from his lung this AM and managed the pleurex fairly well. He does feels better when he has O2 on right now. No other c/o at this time, no r eported fevers, did not have c/o about prior mentioned rash. Objective - Vital Signs Vital signs: Vital Signs Temp 98.1 F 12/20/23 10:52 Pulse 90 12/20/23 10:52 Resp 16 12/20/23 10:52 BP 117/81 12/20/23 10:52 Pulse Ox 94 L 12/20/23 10:52 FiO2 Intake & Output 12/19/23 12/20/23 12/20/23 18:59 06:59 18:59 Intake Total 320 120 Output Total 203 Balance 117 120 Weight 72.9 kg Intake: IV 200 Oral 120 120 Output: Urine 200 Estimated Blood Loss 3 Other: Voiding Method Toilet Toilet Toilet Urinal Urinal Urinal # Voids 2 - Constitutional Constitutional Comment(s): slight muscle wasting noted General appearance: Present: average body habitus, cooperative, no acute distress - EENT Eyes: Present: anicteric sclerae, edentulous ENT: Present: hearing grossly normal - Respiratory Details: resp unlabored, pt ambulating independently - Cardiovascular Details: skin warm, well perfused - Peripheral edema foot Peripheral Edema: bilateral: 1+, Other (compression socks on ) - Neurologic Neurologic: Present: CNII-XII intact - Musculoskeletal Musculoskeletal: Present: generalized weakness, strength equal bilaterally - Psychiatric Psychiatric: Present: A&O x's 3, appropriate affect, intact judgment & insight - Labs CBC & Chem 7: 12/20/23 09:37 12/20/23 09:37 Labs: Abnormal Lab Results - Last 24 Hours (Table) 12/19/23 12/19/23 12/19/23 Range/Units 10: 16:16 18:23 WBC (3.8-10.6) k/uL RBC (4.30-5.90) m/uL Hgb (13.0-17.5) gm/dL Hct (39.0-53.0) % Plt Count (150-450) k/uL Sodium (137-145) mmol/L Potassium (3.5-5.1) mmol/L Chloride (98-107) mmol/L Carbon Dioxide (22-30) mmol/L Creatinine (0.66-1.25) mg/dL Glucose (74-99) mg/dL POC Glucose (mg/dL) 138 H 205 H (70-110) mg/dL Osmolality 272 L (275-295) mOsm/kg 12/19/23 12/19/23 12/20/23 Range/Units 20:30 23:29 06:18 WBC (3.8-10.6) k/uL RBC (4.30-5.90) m/uL Hgb (13.0-17.5) gm/dL Hct (39.0-53.0) % Plt Count (150-450) k/uL Sodium (137-145) mmol/L Potassium (3.5-5.1) mmol/L Chloride (98-107) mmol/L Carbon Dioxide (22-30) mmol/L Creatinine (0.66-1.25) mg/dL Glucose (74-99) mg/dL POC Glucose (mg/dL) 218 H 230 H 142 H (70-110) mg/dL Osmolality (275-295) mOsm/kg 12/20/23 12/20/23 12/20/23 Range/Units 09:37 09:37 11:07 WBC 14.1 H (3.8-10.6) k/uL RBC 3.60 L (4.30-5.90) m/uL Hgb 10.9 L (13.0-17.5) gm/dL Hct 34.8 L (39.0-53.0) % Plt Count 988 H (150-450) k/uL Sodium 124 L (137-145) mmol/L Potassium 5.6 H (3.5-5.1) mmol/L Chloride 88 L (98-107) mmol/L Carbon Dioxide 31 H (22-30) mmol/L Creatinine 0.65 L (0.66-1.25) mg/dL Glucose 262 H (74-99) mg/dL POC Glucose (mg/dL) 278 H (70-110) mg/dL Osmolality (275-295) mOsm/kg Microbiology - Last 24 Hours (Table) 12/16/23 09:25 Gram Stain - Final Pleural Fluid Body Fluid Culture - Final - Imaging and Cardiology Chest x-ray: report reviewed Assessment and Plan (1) Squamous cell lung cancer Current Visit: Yes Status: Acute Priority: High Code(s): C34.90 - MALIGNAN T NEOPLASM OF UNSP PART OF UNSP BRONCHUS OR LUNG SNOMED Code(s): 152600394 (2) Pleural effusion Current Visit: Yes Status: Acute Priority: High Code(s): J90 - PLEURAL EFFUSION, NOT ELSEWHERE CLASSIFIED SNOMED Code(s): 26528689 (3) Pulmonary embolism Current Visit: Yes Status: Acute Priority: High Code(s): I26.99 - OTHER PULMONARY EMBOLISM WITHOUT ACUTE COR PULMONALE SNOMED Code(s): 66141406 Plan: Metastatic NSCLC -New diagnosis -S/P 1st cycle of carbo/alimta/keytruda -No plans at this time to modify treatment. Next cycle was due end of last week. Pt has f/u with Dr. Roblero on Monday. Pt will be assessed with treatment plan to follow Recurrent pleural effusion -Pt has had pleurex cath placed. He feels he is breathing better. Cont on O2 -Anticipate after another cycle or 2 of treatment the pleural fluid will either slow in re-accumulation, or stop, for some time. PE -findings of bilateral pleural effusion as well as small PE. -Doppler of BLE, neg for DVT -Heparin drip with transition ot DOAC after procedures are completed. -Rx for DOAC sent, 1st month free, [facility] cost after Thrombocytosis and leukocytosis, likely reactive, stable today even after procedure. No acute intervention for now. Doctor attests: I performed a history and physical examination of this patient, developed impression and plan of care. Discussed with dictator. I agree with dictators note, documented as a scribe.
[2023-12-20] MEDS: DEXTROSE 50% SYRINGE 50 ML IVP ONE (12:08)
[2023-12-20] MEDS: INSULIN REGULAR 100 UNIT/ML VIAL (IV) IV ONE (12:23)
[2023-12-20] MEDS: SODIUM CHLORIDE 0.9% 1,000 ML IV ONE (12:23)
[2023-12-20] MEDS: SODIUM ZIRCONIUM CYCLOSILICATE 10 GM PACKET PO ONE (12:23)
--- NOTE | 2023-12-20 12:47 | P.PN ---
Subjective Progress Note Date: 12/20/23 Principal diagnosis: Recurrent left malignant pleural effusion. Past medical history significant for tongue and neck cancer and is status post chemotherapy and radiation therapy co mpleted in April 2021, he also has a history of insulin-dependent diabetes mellitus, thyroid disorder and a newly diagnosed left lung mass, diagnosed in August 2023, remote history of marijuana use and is a lifetime non-smoker. The patient was seen and examined in follow-up today December 20, 2023 at his bedside on the third floor cardiac stepdown unit. He is currently sitting up to the bedside chair, is awake, alert, oriented x 3 and is in no acute apparent distress. The patient denies any complaints of shortness of breath or pain at this time. States his breathing is much improved since undergoing the Pleurx catheter placement yesterday with 900 mL of pleural fluid drained. Oxygen satur ations are 95% on 3 L nasal cannula. Remote telemetry is showing normal sinus rhythm heart rate 90 bpm. Chest x-ray reviewed. Objective - Vital Signs Vital signs: Vital Signs Temp 98.1 F 12/20/23 10:52 Pulse 90 12/20/23 10:52 Resp 16 12/20/23 10:52 BP 117/81 12/20/23 10:52 Pulse Ox 94 L 12/20/23 10:52 FiO2 Intake & Output 12/19/23 12/20/23 12/20/23 18:59 06:59 18:59 Intake Total 320 120 Output Total 203 Balance 117 120 Weight 72.9 kg Intake: IV 200 Oral 120 120 Output: Urine 200 Estimated Blood Loss 3 Other: Voiding Method Toilet Toilet Toilet Urinal Urinal Urinal # Voids 2 - Exam CONSTITUTIONAL: Appears comfortable, cooperative, no acute distress RESPIRATORY: Lungs sounds diminished bilaterally. Right greater than left. Respirations symmetrical, nonlabored. Currently on 2 L nasal cannula with oxygen saturation 94%. Strong cough. CARDIOVASCULAR: S1, S2 present. Regular rate and rhythm, sinus rhythm on telemetry. Palpable peripheral pulses bilaterally. No edema present. No calf pain or tenderness noted. SCDs present. GASTROINTESTINAL: Abdomen soft, nontender, nondistended. Active bowel sounds present 4 quadrants. Tolerating diet. GENITOURINARY: Continues to void clear, yellow urine INTEGUMENTARY: Skin is warm and dry with evidence of good perfusion. Dressing clean, dry and intact to his left chest Pleurx catheter. NEUROLOGIC: Cranial nerves II through XII intact MUSKULOSKELETAL: Able to move all extremities, strength equal bilaterally, gait normal PSYCHIATRIC: Alert and oriented to person place and time, appropriate affect, intact judgment and insight - Allied health notes Allied health notes reviewed: nursing - Labs CBC & Chem 7: 12/20/23 09:37 12/20/23 09:37 Labs: Abnormal Lab Results - Last 24 Hours (Table) 12/19/23 12/19/23 12/19/23 Range/Units 10: 16:16 18:23 WBC (3.8-10.6) k/uL RBC (4.30-5.90) m/uL Hgb (13.0-17.5) gm/dL Hct (39.0-53.0) % Plt Count (150-450) k/uL Sodium (137-145) mmol/L Potassium (3.5-5.1) mmol/L Chloride (98-107) mmol/L Carbon Dioxide (22-30) mmol/L Creatinine (0.66-1.25) mg/dL Glucose (74-99) mg/dL POC Glucose (mg/dL) 138 H 205 H (70-110) mg/dL Osmolality 272 L (275-295) mOsm/kg 12/19/23 12/19/23 12/20/23 Range/Units 20:30 23:29 06:18 WBC (3.8-10.6) k/uL RBC (4.30-5.90) m/uL Hgb (13.0-17.5) gm/dL Hct (39.0-53.0) % Plt Count (150-450) k/uL Sodium (137-145) mmol/L Potassium (3.5-5.1) mmol/L Chloride (98-107) mmol/L Carbon Dioxide (22-30) mmol/L Creatinine (0.66-1.25) mg/dL Glucose (74-99) mg/dL POC Glucose (mg/dL) 218 H 230 H 142 H (70-110) mg/dL Osmolality (275-295) mOsm/kg 12/20/23 12/20/23 12/20/23 Range/Units 09:37 09:37 11:07 WBC 14.1 H (3.8-10.6) k/uL RBC 3.60 L (4.30-5.90) m/uL Hgb 10.9 L (13.0-17.5) gm/dL Hct 34.8 L (39.0-53.0) % Plt Count 988 H (150-450) k/uL Sodium 124 L (137-145) mmol/L Potassium 5.6 H (3.5-5.1) mmol/L Chloride 88 L (98-107) mmol/L Carbon Dioxide 31 H (22-30) mmol/L Creatinine 0.65 L (0.66-1.25) mg/dL Glucose 262 H (74-99) mg/dL POC Glucose (mg/dL) 278 H (70-110) mg/dL Osmolality (275-295) mOsm/kg Microbiology - Last 24 Hours (Table) 12/16/23 09:25 Gram Stain - Final Pleural Fluid Body Fluid Culture - Final - Imaging and Cardiology Chest x-ray: report reviewed, image reviewed Assessment and Plan Assessment: Recurrent malignant effusion left pleural space secondary to primary head and neck cancer., status post left thoracentesis on December 16, 2023 with 1.2 L of fluid drained, status post left Pleurx catheter placement 12/19/[address] 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 The left Pleurx catheter was drained for 150 mL of thin serosanguineous drainage this morning at his bedside. Pleurx catheter discharge instructions have been reviewed with the patient. Do not drain more than 1 L or 1000 mL in a 24-hour period. Drainage frequency dictated by the patient's symptoms, may be every day, every other day, weekly, or however often the patient is symptomatic. Once the drainage is less than 50 mL 3 times in a row, notify the surgery office at [phone], for possible Pleurx catheter removal. Per the cardiothoracic surgery standpoint we will continue to follow the patient on an as-needed basis, please feel free to reach out for any further questions regarding the Pleurx catheter. Time with Patient: Greater than 30
--- NOTE | 2023-12-20 13:15 | P.PN ---
Subjective Progress Note Date: 12/20/23 Principal diagnosis: Pleural effusion. 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 The patient was recently found to have a lung mass and had undergone biopsy in August 2023 and found to have invasive moderately differentiated squamous cell carcinoma. 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 Suggestive of probable metastasis from the patient's known tongue and neck primary to the lung. MRI of the brain was negative. A PET scan from September 2023 revealed findings most consistent with a large left upper lobe FDG avid lung mass with metastatic FDG avid mediastinal/right supraclavicular and bilateral hilar adenopathy. Additional left inferior pleural surface FDG avid metastatic nodules. He had been receiving chemotherapy and was seen by his oncologist yesterday who sent him for a CT angiogram that did reveal a small subsegmental branch embolus to the basilar right lower lobe. New moderate to large left pleural effusion with atelectatic collapse of the basilar left lower lobe. New moderate right pleural effusion with adjacent atelectasis. I ncreasing pleural nodular thickening at the left costophrenic angle and also pleural nodularity posterior left upper lung. Additional disease progression with new pericardiac adenopathy measuring up to 2.1 cm. Was referred here to the emergency room last evening. He is seen today in consultation in the emergency department. He is currently sitting up on a stretcher. Awake and alert in no acute distress. He is dyspneic with conversation. Dyspneic with minimal exertion. He is maintaining O2 saturations in the 90s on 4 L/min per nasal cannula. White count 21.8. Hemoglobin 11.7. Platelets 1085. Sodium 128. Potassium 4.6. Bicarb 26. BUN 18. Creatinine 0.65. Glucose 116. He is currently on a heparin drip The patient is seen today December 17, 2023 in follow-up on the selective care unit. He is currently resting in bed. Awake and alert in no acute distress. Containing O2 saturations in the 90s on 2 L/min per nasal cannula. Afebrile. Hemodynamically stable. Pleural fluid culture and cytology pending. Fluid exudate with a total protein greater than 3.6, LDH 163. White count 18.9. Hemoglobin 12.2. Platelets 1085. Sodium 128. Potassium 5.1. Bicarb 30. BUN 14. Creatinine 0.68. Glucose 169. Today's chest x-ray shows recurring large left and small right pleural effusions. The patient is seen today December 18, 2023 in follow-up on the selective care unit. He is currently sitting up at the bedside. Awake and alert in no acute distress. He is maintaining O2 saturations in the 90s on room air. He is afebrile. Hemodynamically stable. White count 15.3. Hemoglobin 10.9. Platelets 940. INR 1.1. Glucose 168. He remains on a heparin drip. Plan is for possible Pleurx catheter placement tomorrow. Pleural fluid cytology is pending. The patient is seen today December 19, 2023 in follow-up on the selective care unit. He is currently up ambulating in his room. Awake and alert in no acute distress. Maintaining good O2 saturation in the 90s on room air. He is continued on a heparin drip. Plan is for Pleurx catheter placement possibly today. Pleural fluid cultures and cytology pending. White count 13.3. Hemoglobin 11.0. Platelets 994. Sodium 125. Potassium 5.0. Bicarb 33. BUN 16. Creatinine 0.64. Glucose 104. Progress note dated December 20, 2023. The patient is seen today in room 382. Currently, he has a left Pleurx catheter in place. He is on 2 L of oxygen by nasal cannula. He is not receiving any IV fluids. Today's labs include a white count 14.1, hemoglobin 10.9, hematocrit 34.8, and a platelet count of 988,000. Sodium 124, potassium 5.6, chlorides 88, CO2 31, BUN 18, creatinine 0.65. Glucose is 278. Calcium is 8.7. Chest x-ray shows a stable right-sided pleural effusion, and a left-sided chest tube/Pleurx catheter in place. The left-sided effusion is moderate in severity. Objective - Vital Signs Vital signs: Vital Signs Temp 98.1 F 12/20/23 10:52 Pulse 92 12/20/23 13:05 Resp 16 12/20/23 11:20 BP 125/80 12/20/23 11:20 Pulse Ox 85 L 12/20/23 13:05 FiO2 Intake & Output 12/19/23 12/20/23 12/20/23 18:59 06:59 18:59 Intake Total 320 240 Output Total 203 Balance 117 240 Weight 72.9 kg Intake: IV 200 Oral 120 240 Output: Urine 200 Estimated Blood Loss 3 Other: Voiding Method Toilet Toilet Toilet Urinal Urinal Urinal # Voids 2 1 - Exam No acute distress, oriented 3. Currently on 2 L of oxygen. No respiratory distress. HEENT examination is grossly unremarkable. Mucous membranes are moist. No oral lesions. Neck supple. Full range of motion. No adenopathy thyromegaly or neck vein distention. Cardiovascular examination reveals regular rhythm rate. S1-S2 normal. No S3 or S4. No discernible murmur noted. Lungs reveal manage bilateral breath sounds. Left Pleurx catheter is noted. No wheezes. No rhonchi. No crackles. Abdomen soft bowel sounds are heard. No masses or tenderness. Extremities are intact. No cyanosis clubbing or edema. Skin is without rash or lesion. Neurologic examination is brief but nonfocal. - Labs CBC & Chem 7: 12/20/23 09:37 12/20/23 09:37 Labs: Abnormal Lab Results - Last 24 Hours (Table) 12/19/23 12/19/23 12/19/23 Range/Units 10: 16:16 18:23 WBC (3.8-10.6) k/uL RBC (4.30-5.90) m/uL Hgb (13.0-17.5) gm/dL Hct (39.0-53.0) % Plt Count (150-450) k/uL Sodium (137-145) mmol/L Potassium (3.5-5.1) mmol/L Chloride (98-107) mmol/L Carbon Dioxide (22-30) mmol/L Creatinine (0.66-1.25) mg/dL Glucose (74-99) mg/dL POC Glucose (mg/dL) 138 H 205 H (70-110) mg/dL Osmolality 272 L (275-295) mOsm/kg 12/19/23 12/19/23 12/20/23 Range/Units 20:30 23:29 06:18 WBC (3.8-10.6) k/uL RBC (4.30-5.90) m/uL Hgb (13.0-17.5) gm/dL Hct (39.0-53.0) % Plt Count (150-450) k/uL Sodium (137-145) mmol/L Potassium (3.5-5.1) mmol/L Chloride (98-107) mmol/L Carbon Dioxide (22-30) mmol/L Creatinine (0.66-1.25) mg/dL Glucose (74-99) mg/dL POC Glucose (mg/dL) 218 H 230 H 142 H (70-110) mg/dL Osmolality (275-295) mOsm/kg 12/20/23 12/20/23 12/20/23 Range/Units 09:37 09:37 11:07 WBC 14.1 H (3.8-10.6) k/uL RBC 3.60 L (4.30-5.90) m/uL Hgb 10.9 L (13.0-17.5) gm/dL Hct 34.8 L (39.0-53.0) % Plt Count 988 H (150-450) k/uL Sodium 124 L (137-145) mmol/L Potassium 5.6 H (3.5-5.1) mmol/L Chloride 88 L (98-107) mmol/L Carbon Dioxide 31 H (22-30) mmol/L Creatinine 0.65 L (0.66-1.25) mg/dL Glucose 262 H (74-99) mg/dL POC Glucose (mg/dL) 278 H (70-110) mg/dL Osmolality (275-295) mOsm/kg Microbiology - Last 24 Hours (Table) 12/16/23 09:25 Gram Stain - Final Pleural Fluid Body Fluid Culture - Final Assessment and Plan Assessment: Acute hypoxemic respiratory failure secondary to bilateral pleural effusions left greater than right, S/P left thoracentesis December 16, 2023. Left Pleurx catheter placement, December 19, 2023. 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 Metastatic lung mass biopsied August 2023, currently undergoing chemotherapy. Acute segmental pulmonary emboli of the right lower lobe. Leukocytosis. Thrombocytosis. Hyponatremia. Diabetes mellitus. Hypothyroidism. Plan: Plan dated December 20, 2023. The patient is seen today in room 382. He is up walking the room, trying to get some exercise. The patient continues on oxygen, 2 L. A left Pleurx catheter was placed yesterday by cardiothoracic surgery. The patient has already had the catheter drained earlier today. Chest x-ray shows bilateral effusions, and the left-sided drainage catheter. Labs, x-rays, medications are reviewed. We will continue to follow the patient, make recommendations. Prognosis is guarded. Time with Patient: Less than 30
--- NOTE | 2023-12-20 14:36 | P.PN ---
Subjective Progress Note Date: 12/20/23 Hospital course 63 year old M with PMH of stage 4 lung CA, Type 1 DM, hypothyroid presents to the ED for shortness of breath for the past week associated with cough. In the ED he underwent extensive evaluation. T 97.3F, BP 160/92, HR 94, RR 20, O2 sat as low as 89% on 2L NC. CBC, Coag panel, CMP significant for WBC 17.5, RBC 3.8, Hg 11.6, Hct 35.3, Plt 1002, Na 128, Cl 94, glu 190, alk phos 435, alb 3.2. Trop < 0.012. EKG sinus rhythm no with ST or T wave changes. CTA chest showed small segmental PE in the RLL, mod-large large left pleural effusion, mod right pleural effusion with pleural nodularity, AMALIA mass 11.9 cm with mediastinal LAD. Patient was started on a heparin infusion and admitted for further workup and management. Patient had a Pleurx catheter placed on the left side. Patient had home O2 eval and he did qualify for oxygen. restaurant and bar manager arranged for home care. restaurant and bar manager also working on setting up home oxygen. Patient seen this morning. He states that when the oxygen is off he feels short of breath. Physical exam General examination - Alert and Oriented 3 in NAD Heart - + S1S2 no murmurs Lungs -crackles in bilateral lower lungs Abdomen soft NT ND +ve BS Extremities - No edema FLAVOR MAKER - Moving all 4 extremities spontaneously Psych - Calm and cooperative Assessment and plan Acute hypoxic respiratory failure Bilateral pleural effusions left greater than right Status post left-sided Pleurx catheter Patient failed home O2 restaurant and bar manager working on setting up home O2. Hyperkalemia Will give the patient Lokelma, 10 units of regular IV insulin. Recheck potassium Hyponatremia Sodium this morning is 124 which is slightly worse Will give a bolus of fluids and recheck BMP Pulmonary embolism Will restart Eliquis 10 mg p.o. twice daily and stop heparin Tinea curious Nystatin powder Leukocytosis Likely reactive No signs or symptoms of infection Anemia of chronic disease secondary malignancy Thrombocytosis likely reactive Type 1 diabetes mellitus Sliding scale insulin History of stage IV lung cancer Oncology following Hypothyroidism Continue Synthroid 175 mcg p.o. daily DVT prophylaxis: Eliquis Objective - Vital Signs Vital signs: Vital Signs Temp 98.1 F 12/20/23 10:52 Pulse 89 12/20/23 13:05 Resp 16 12/20/23 11:20 BP 125/80 12/20/23 11:20 Pulse Ox 85 L 12/20/23 13:05 FiO2 Intake & Output 12/19/23 12/20/23 12/20/23 18:59 06:59 18:59 Intake Total 320 240 Output Total 203 Balance 117 240 Weight 72.9 kg Intake: IV 200 Oral 120 240 Output: Urine 200 Estimated Blood Loss 3 Other: Voiding Method Toilet Toilet Toilet Urinal Urinal Urinal # Voids 2 1 - Labs CBC & Chem 7: 12/20/23 09:37 12/20/23 09:37 Labs: Abnormal Lab Results - Last 24 Hours (Table) 12/19/23 12/19/23 12/19/23 Range/Units 10: 16:16 18:23 WBC (3.8-10.6) k/uL RBC (4.30-5.90) m/uL Hgb (13.0-17.5) gm/dL Hct (39.0-53.0) % Plt Count (150-450) k/uL Sodium (137-145) mmol/L Potassium (3.5-5.1) mmol/L Chloride (98-107) mmol/L Carbon Dioxide (22-30) mmol/L Creatinine (0.66-1.25) mg/dL Glucose (74-99) mg/dL POC Glucose (mg/dL) 138 H 205 H (70-110) mg/dL Osmolality 272 L (275-295) mOsm/kg 12/19/23 12/19/23 12/20/23 Range/Units 20:30 23:29 06:18 WBC (3.8-10.6) k/uL RBC (4.30-5.90) m/uL Hgb (13.0-17.5) gm/dL Hct (39.0-53.0) % Plt Count (150-450) k/uL Sodium (137-145) mmol/L Potassium (3.5-5.1) mmol/L Chloride (98-107) mmol/L Carbon Dioxide (22-30) mmol/L Creatinine (0.66-1.25) mg/dL Glucose (74-99) mg/dL POC Glucose (mg/dL) 218 H 230 H 142 H (70-110) mg/dL Osmolality (275-295) mOsm/kg 12/20/23 12/20/23 12/20/23 Range/Units 09:37 09:37 11:07 WBC 14.1 H (3.8-10.6) k/uL RBC 3.60 L (4.30-5.90) m/uL Hgb 10.9 L (13.0-17.5) gm/dL Hct 34.8 L (39.0-53.0) % Plt Count 988 H (150-450) k/uL Sodium 124 L (137-145) mmol/L Potassium 5.6 H (3.5-5.1) mmol/L Chloride 88 L (98-107) mmol/L Carbon Dioxide 31 H (22-30) mmol/L Creatinine 0.65 L (0.66-1.25) mg/dL Glucose 262 H (74-99) mg/dL POC Glucose (mg/dL) 278 H (70-110) mg/dL Osmolality (275-295) mOsm/kg Microbiology - Last 24 Hours (Table) 12/16/23 09:25 Gram Stain - Final Pleural Fluid Body Fluid Culture - Final
[2023-12-20 15:37] LABS: African American GFR (CKD) >90 (>60 ml/min/1.73 sqM); Anion Gap 4 mmol/L; Blood Urea Nitrogen 20 mg/dL (9-20); Calcium 8.7 mg/dL (8.4-10.2); Carbon Dioxide 27 mmol/L (22-30); Chloride 93 mmol/L (98-107); Glucose 215 mg/dL (74-99); Non-African American GFR(CKD) >90 (>60 ml/min/1.73 sqM); Sodium 124 mmol/L (137-145)
[2023-12-20 16:11] LABS: Glucose,Whole Blood 264 mg/dL (70-110)
[2023-12-20] MEDS: APIXABAN 5 MG TAB PO SCH (16:13)
[2023-12-20 20:27] LABS: Glucose,Whole Blood 316 mg/dL (70-110)
[2023-12-20 21:32] VITALS: TEMP 98.2
[2023-12-20 22:54] LABS: Glucose,Whole Blood 307 mg/dL (70-110)
[2023-12-20] MEDS: DOCUSATE 100 MG CAP PO SCH (23:09)
[2023-12-21 00:15] LABS: Glucose,Whole Blood 311 mg/dL (70-110)
[2023-12-21] MEDS: INSULIN ASPART (NovoLOG) 100 UNIT/ML VIAL SQ SCH ×3 (00:27→16:55)
[2023-12-21] MEDS: SODIUM CHLORIDE 0.9% 1,000 ML IV SCH (00:43)
[2023-12-21 06:18] LABS: Glucose,Whole Blood 102 mg/dL (70-110)
[2023-12-21 07:57] LABS: African American GFR (CKD) >90 (>60 ml/min/1.73 sqM); Anion Gap 3 mmol/L; Blood Urea Nitrogen 16 mg/dL (9-20); Calcium 8.7 mg/dL (8.4-10.2); Carbon Dioxide 34 mmol/L (22-30); Chloride 89 mmol/L (98-107); Glucose 77 mg/dL (74-99); Non-African American GFR(CKD) >90 (>60 ml/min/1.73 sqM); Potassium 5.3 mmol/L (3.5-5.1); Sodium 126 mmol/L (137-145)
[2023-12-21] MEDS: SODIUM ZIRCONIUM CYCLOSILICATE 10 GM PACKET PO ONE (08:15)
--- NOTE | 2023-12-21 11:48 | P.DS ---
Providers Date of admission: 12/15/23 21:03 Attending physician: Katty West MD Consults: 12/15/23 21:03 Consult Physician Urgent Consulting Provider: Zara Cohen Consult Reason/Comments: Lung mass Do you want consulting provider notified?: Yes Consult Physician Urgent Consulting Provider: Yamilet Armstrong Consult Reason/Comments: Pleural effusion, PE Do you want consulting provider notified?: Yes 12/17/23 10:43 Consult Physician Routine Consulting Provider: Clinton Lora Consult Reason/Comments: Pleurx catheter Do you want consulting provider notified?: Yes Primary care physician: [facility] Course: Discharge Diagnosis: Acute hypoxic respiratory failure Bilateral pleural effusion left greater than right suspect due to malignancy Hyperkalemia suspect due to high potassium diet Hyponatremia Pulmonary embolism Tenia curious Leukocytosis Anemia of chronic disease secondary malignancy Thrombocytosis likely reactive Type 1 diabetes mellitus History of stage IV lung cancer Hypothyroidism Hospital Course: 63 year old M with PMH of stage 4 lung CA, Type 1 DM, hypothyroid presents to the ED for shortness of breath for the past week associated with cough. In the ED he underwent extensive evaluation. T 97.3F, BP 160/92, HR 94, RR 20, O2 sat as low as 89% on 2L NC. CBC, Coag panel, CMP significant for WBC 17.5, RBC 3.8, Hg 11.6, Hct 35.3, Plt 1002, Na 128, Cl 94, glu 190, alk phos 435, alb 3.2. Trop < 0.012. EKG sinus rhythm no with ST or T wave changes. CTA chest showed small segmental PE in the RLL, mod-large large left pleural effusion, mod right pleural effusion with pleural nodularity, AMALIA mass 11.9 cm with mediastinal LAD. Patient was started on a heparin infusion and admitted for further workup and management. Patient had a thoracentesis done on December 16, 2023 of the left side. The fluid analysis was consistent with exudative fluid. Cultures from the pleural fluid were negative. Fluid was highly suspicious for malignancy. Cytology is pending. CT surgery placed a left Pleurx catheter on December 19, 2023. Repeat chest x-ray shows stable right-sided pleural effusion. Patient also had a complicated course due to hyperkalemia. Patient has been eating bananas while in the hospital. Patient was counseled on a low potassium diet. Patient instructed to follow-up with his PCP for BMP check in 3 to 5 days. Patient sodium level was also on the low side. It was stable around 125. Patient's overall prognosis is poor. Patient had home O2 eval done and he did qualify for oxygen. Patient was set up with home care as [facility] Patient amenable to discharge and is insisting on discharge as soon as possible. Hematology sent a prescription for Eliquis. Patient seen and examined at bedside.[] Vital signs reviewed and stable. General examination - Alert and Oriented 3 in NAD Heart - + S1S2 no murmurs Lungs -crackles in bilateral lower lungs Abdomen soft NT ND +ve BS Extremities - No edema CASH REGISTER BALANCER - Moving all 4 extremities spontaneously Psych - Calm and cooperative A total of [33] minutes of time were spent preparing this complex discharge summary . Patient discharged on [12/21/2023] Plan - Discharge Summary Discharge Rx Participant: Yes New Discharge Prescriptions: New Apixaban [Eliquis Starter Pack (for VTE)] 5 - 10 mg PO DIRECTED 30 Days #1 each Nystatin 100,000 Unit/gm Powd [Mycostatin Powder] 1 applic TOPICAL TID PRN 7 Days #1 each PRN Reason: fungal-groin Continue Levothyroxine Sodium [Synthroid] 175 mcg PO DAILY Dorzolamide-Timol 2.23%/0.68% [Cosopt] 1 drop BOTH EYES BID Multivitamins, Thera [Multivitamin (formulary)] 1 tab PO DAILY Insulin Glargine,Hum.rec.anlog [Lantus Solostar Pen] 16 units SQ DAILY Insulin Aspart [NovoLOG Flexpen] See Protocol SQ AC-TID HYDROcodone/APAP 10-325MG [Bethel 10-325] 1 tab PO Q6H PRN PRN Reason: Pain Discharge Medication List Multivitamins, Thera [Multivitamin (formulary)] 1 tab PO DAILY 09/02/21 [History] Levothyroxine Sodium [Synthroid] 175 mcg PO DAILY 08/30/23 [History] Dorzolamide-Timol 2.23%/0.68% [Cosopt] 1 drop BOTH EYES BID 12/16/23 [History] HYDROcodone/APAP 10-325MG [Bethel 10-325] 1 tab PO Q6H PRN 12/16/23 [History] Insulin Aspart [NovoLOG Flexpen] See Protocol SQ AC-TID 12/16/23 [History] Insulin Glargine,Hum.rec.anlog [Lantus Solostar Pen] 16 units SQ DAILY 12/16/23 [History] Apixaban [Eliquis Starter Pack (for VTE)] 5 - 10 mg PO DIRECTED 30 Days #1 each 12/19/23 [Rx] Nystatin 100,000 Unit/gm Powd [Mycostatin Powder] 1 applic TOPICAL TID PRN 7 Days #1 each 12/21/23 [Rx] Follow up Appointment(s)/Referral(s): Bentley Roblero [STAFF PHYSICIAN] - 12/25/23 11:45 am Clinton Lora MD [STAFF PHYSICIAN] - As Needed (Please call for appointment for pleurx removal once drainage less than 50 mL for 3 times in a row) [facility] [NON-STAFF] - [facility] [Primary Care Provider] - 1-2 days Patient Instructions/Handouts: Potassium Content of Foods List (GEN), Chronic Kidney Disease Diet (GEN) Activity/Diet/Wound Care/Special Instructions: PLEURX DISCHARGE INSTRUCTIONS: 1. Home Care is ordered, they will obtain new bottles. 2. May shower after 24 hours, no tub baths/hot tubs. 3. Do not drain more than 1 liter or 1000 mL in 24 hours. 4. New drainage bottle needed with each drainage. 5. Drainage frequency dictated by patient symptoms, may be every day, every other day, weekly, or however often the patient is symptomatic. 6. Please notify STRUCTURAL RIGGER or office if temperature >101F, excessive pain at insertion site, drainage consistency changes to cloudy or smells bad, catheter falls out, or anything else that concerns you. 7. Contact surgery office with weekly drainage amounts. May fax the amounts. 8. Once drainage is less than 50 mL three times in a row, notify the surgery office for possible removal. Surgery office: , fax Discharge/Stand Alone Forms: Who Do I Call? Discharge Disposition: HOME WITH HOME HEALTH SERVICES Plan of Treatment: Please follow up with your PCP to check your electrolytes in 3 to 5 days
[2023-12-21 11:49] LABS: Glucose,Whole Blood 145 mg/dL (70-110)
[2023-12-21 12:06] VITALS: BMI 22.4
--- NOTE | 2023-12-21 13:35 | P.PN ---
Subjective Progress Note Date: 12/21/23 Principal diagnosis: Pleural effusion. 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 The patient was recently found to have a lung mass and had undergone biopsy in August 2023 and found to have invasive moderately differentiated squamous cell carcinoma. 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 Suggestive of probable metastasis from the patient's known tongue and neck primary to the lung. MRI of the brain was negative. A PET scan from September 2023 revealed findings most consistent with a large left upper lobe FDG avid lung mass with metastatic FDG avid mediastinal/right supraclavicular and bilateral hilar adenopathy. Additional left inferior pleural surface FDG avid metastatic nodules. He had been receiving chemotherapy and was seen by his oncologist yesterday who sent him for a CT angiogram that did reveal a small subsegmental branch embolus to the basilar right lower lobe. New moderate to large left pleural effusion with atelectatic collapse of the basilar left lower lobe. New moderate right pleural effusion with adjacent atelectasis. I ncreasing pleural nodular thickening at the left costophrenic angle and also pleural nodularity posterior left upper lung. Additional disease progression with new pericardiac adenopathy measuring up to 2.1 cm. Was referred here to the emergency room last evening. He is seen today in consultation in the emergency department. He is currently sitting up on a stretcher. Awake and alert in no acute distress. He is dyspneic with conversation. Dyspneic with minimal exertion. He is maintaining O2 saturations in the 90s on 4 L/min per nasal cannula. White count 21.8. Hemoglobin 11.7. Platelets 1085. Sodium 128. Potassium 4.6. Bicarb 26. BUN 18. Creatinine 0.65. Glucose 116. He is currently on a heparin drip The patient is seen today December 17, 2023 in follow-up on the selective care unit. He is currently resting in bed. Awake and alert in no acute distress. Containing O2 saturations in the 90s on 2 L/min per nasal cannula. Afebrile. Hemodynamically stable. Pleural fluid culture and cytology pending. Fluid exudate with a total protein greater than 3.6, LDH 163. White count 18.9. Hemoglobin 12.2. Platelets 1085. Sodium 128. Potassium 5.1. Bicarb 30. BUN 14. Creatinine 0.68. Glucose 169. Today's chest x-ray shows recurring large left and small right pleural effusions. The patient is seen today December 18, 2023 in follow-up on the selective care unit. He is currently sitting up at the bedside. Awake and alert in no acute distress. He is maintaining O2 saturations in the 90s on room air. He is afebrile. Hemodynamically stable. White count 15.3. Hemoglobin 10.9. Platelets 940. INR 1.1. Glucose 168. He remains on a heparin drip. Plan is for possible Pleurx catheter placement tomorrow. Pleural fluid cytology is pending. The patient is seen today December 19, 2023 in follow-up on the selective care unit. He is currently up ambulating in his room. Awake and alert in no acute distress. Maintaining good O2 saturation in the 90s on room air. He is continued on a heparin drip. Plan is for Pleurx catheter placement possibly today. Pleural fluid cultures and cytology pending. White count 13.3. Hemoglobin 11.0. Platelets 994. Sodium 125. Potassium 5.0. Bicarb 33. BUN 16. Creatinine 0.64. Glucose 104. Progress note dated December 20, 2023. The patient is seen today in room 382. Currently, he has a left Pleurx catheter in place. He is on 2 L of oxygen by nasal cannula. He is not receiving any IV fluids. Today's labs include a white count 14.1, hemoglobin 10.9, hematocrit 34.8, and a platelet count of 988,000. Sodium 124, potassium 5.6, chlorides 88, CO2 31, BUN 18, creatinine 0.65. Glucose is 278. Calcium is 8.7. Chest x-ray shows a stable right-sided pleural effusion, and a left-sided chest tube/Pleurx catheter in place. The left-sided effusion is moderate in severity. Progress note dated December 21, 2023. The patient is seen again in room 382. The patient had a Pleurx catheter placed on the left side. The patient would like to be discharged. He is currently not receiving any IV fluids. He continues on O2 at 2 L. He has no specific complaints. And his breathing is much improved. Current labs include a sodium 126, potassium 5.3, chloride 89, CO2 34, BUN 16, creatinine 0.58. Glucose is 145. Calcium is 8.7. Chest x-ray from December 19 has been reviewed. Objective - Vital Signs Vital signs: Vital Signs Temp 98.2 F 12/20/23 21:30 Pulse 86 12/21/23 08:10 Resp 16 12/21/23 08:10 BP 126/81 12/21/23 08:10 Pulse Ox 99 12/21/23 08:10 FiO2 Intake & Output 12/20/23 12/21/23 12/21/23 18:59 06:59 18:59 Intake Total 360 118 Balance 360 118 Weight 75.1 kg 75.1 kg Intake: Oral 360 118 Other: Voiding Method Toilet Toilet Toilet Urinal Urinal Urinal # Voids 1 - Exam No acute distress, oriented 3. Currently on 2 L of oxygen. No respiratory distress. HEENT examination is grossly unremarkable. Mucous membranes are moist. No oral lesions. Neck supple. Full range of motion. No adenopathy thyromegaly or neck vein distention. Cardiovascular examination reveals regular rhythm rate. S1-S2 normal. No S3 or S4. No discernible murmur noted. Lungs reveal manage bilateral breath sounds. Left Pleurx catheter is noted. No wheezes. No rhonchi. No crackles. Abdomen soft bowel sounds are heard. No masses or tenderness. Extremities are intact. No cyanosis clubbing or edema. Skin is without rash or lesion. Neurologic examination is brief but nonfocal. - Labs CBC & Chem 7: 12/20/23 09:37 12/21/23 06:59 Labs: Abnormal Lab Results - Last 24 Hours (Table) 12/20/23 12/20/23 12/20/23 Range/Units 15:09 16:09 20:24 Sodium 124 L (137-145) mmol/L Potassium (3.5-5.1) mmol/L Chloride 93 L (98-107) mmol/L Carbon Dioxide (22-30) mmol/L Creatinine 0.57 L (0.66-1.25) mg/dL Glucose 215 H (74-99) mg/dL POC Glucose (mg/dL) 264 H 316 H (70-110) mg/dL 12/20/23 12/21/23 12/21/23 Range/Units 22:52 00:14 06:59 Sodium 126 L (137-145) mmol/L Potassium 5.3 H (3.5-5.1) mmol/L Chloride 89 L (98-107) mmol/L Carbon Dioxide 34 H (22-30) mmol/L Creatinine 0.58 L (0.66-1.25) mg/dL Glucose (74-99) mg/dL POC Glucose (mg/dL) 307 H 311 H (70-110) mg/dL 12/21/23 Range/Units 11:48 Sodium (137-145) mmol/L Potassium (3.5-5.1) mmol/L Chloride (98-107) mmol/L Carbon Dioxide (22-30) mmol/L Creatinine (0.66-1.25) mg/dL Glucose (74-99) mg/dL POC Glucose (mg/dL) 145 H (70-110) mg/dL Microbiology - Last 24 Hours (Table) 12/16/23 09:25 Gram Stain - Final Pleural Fluid Body Fluid Culture - Final Assessment and Plan Assessment: Acute hypoxemic respiratory failure secondary to bilateral pleural effusions left greater than right, S/P left thoracentesis December 16, 2023. Left Pleurx catheter placement, December 19, 2023. 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 Metastatic lung mass biopsied August 2023, currently undergoing chemotherapy. Acute segmental pulmonary emboli of the right lower lobe. Leukocytosis. Thrombocytosis. Hyponatremia. Diabetes mellitus. Hypothyroidism. Plan: Plan dated December 20, 2023. The patient is seen today in room 382. He is up walking the room, trying to get some exercise. The patient continues on oxygen, 2 L. A left Pleurx catheter was placed yesterday by cardiothoracic surgery. The patient has already had the catheter drained earlier today. Chest x-ray shows bilateral effusions, and the left-sided drainage catheter. Labs, x-rays, medications are reviewed. We will continue to follow the patient, make recommendations. Prognosis is guarded. Plan dated December 21, 2023. The patient is seen today in room 382. The patient is walking around the room, on 2 L of oxygen. No IV fluids. Labs, x-rays, medications are reviewed. The patient had a Pleurx catheter placed on the left side. We will continue to follow. The patient is hoping to be discharged. He feels like he could be discharged. He denies any chest pain or chest discomfort. He denies any worsening shortness of breath. Labs, x-rays, and all medications are reviewed. Time with Patient: Less than 30
[2023-12-21 16:16] VITALS: BP 136/82; PULSE 74; RESP 18
[2023-12-21 16:36] LABS: Glucose,Whole Blood 320 mg/dL (70-110)
[2023-12-27] MEDS ORDERED: APIXABAN 5 MG TAB PO SCH (09:00)
== END 2023-12-21 19:30 | disposition home health service (06) | DRG 180 ==
LOC: EC 18:05 → 3SCARD 21:03
PROVIDERS: ADMIT Internal Medicine; ATTEND Internal Medicine
PROC: 0W9B3ZX Drainage of Left Pleural Cavity, Percutaneous Approach, Diagnostic (ICD-10-PCS; principal; 2023-12-15)
PROC: 0W9B30Z Drainage of Left Pleural Cavity with Drainage Device, Percutaneous Approach (ICD-10-PCS; 2023-12-19)
DX: C78.02 Secondary malignant neoplasm of left lung (principal); I26.99 Other pulmonary embolism without acute cor pulmonale; J96.01 Acute respiratory failure with hypoxia; E87.1 Hypo-osmolality and hyponatremia; J91.0 Malignant pleural effusion; D63.0 Anemia in neoplastic disease; D75.839 Thrombocytosis, unspecified; E10.9 Type 1 diabetes mellitus without complications; E03.9 Hypothyroidism, unspecified; B35.6 Tinea cruris; E87.5 Hyperkalemia; Z79.890 Hormone replacement therapy; Z79.4 Long term (current) use of insulin; Z92.3 Personal history of irradiation; Z92.21 Personal history of antineoplastic chemotherapy; Z85.810 Personal history of malignant neoplasm of tongue; Z85.21 Personal history of malignant neoplasm of larynx
CPT/HCPCS: 36415; 71045; 76604; 80048; 80053; 82945; 83036; 83605; 83615; 83735; 83930; 83935; 84157; 84300; 84484; 85025; 85027; 85610; 85730; 87070; 87205; 88108; 88305; 88341; 88342; 89050; 93005; 93306; 93970; 94760; 96361; 96365; 96366; 96375; 99291

== ENCOUNTER → 2023-12-15 | Outpatient (CLI) | payer OTHER ==
[2023-12-15 16:10] LABS: African American GFR (CKD) >90 (>60 ml/min/1.73 sqM); Blood Urea Nitrogen 21 mg/dL (9-20); Non-African American GFR(CKD) >90 (>60 ml/min/1.73 sqM)
--- NOTE | 2023-12-15 17:33 | CT ---
EXAMINATION TYPE: CT angio chest DATE OF EXAM: 12/15/2023 COMPARISON: CT 08/07/2023 and PET/CT 09/21/2023 HISTORY: 63-year-old male R06.02, shortness of breath SOB, currently on chemo for lung Ca. TECHNIQUE: Contiguous axial scanning of the chest after the administration of 100 ml mL of Isovue 370 . Coronal/sagittal MIP reconstructions performed. CT DLP: 753 mGycm. Automatic exposure control utilized for a dose reduction. FINDINGS: The heart is normal size without pericardial effusion. There is flattening of the interventricular se ptum but no refluxing contrast into the hepatic veins. Aorta normal caliber with bovine configuration to the aortic arch. Correlate mildly enlarged caliber main right and left pulmonary arteries measuring up to 2.7 cm sugge sts underlying pulmonary arterial hypertension. There is suboptimal contrast bolus limiting evaluatio n for PE. There is subtle central filling defect basilar right lower lobe segmental branches, for exa mple, axial image 123. Ongoing mediastinal and subcarinal nodes. Subcarinal node measures 1.7 cm versus 2.9 cm, previously. Right paratracheal nodes measure up to 1.8 cm versus 2.0 cm, previously. Redemonstrated left upper lobe/left suprahilar mass encasing left hilar structures and likely occludi ng the lingular bronchus. The mass measures up to 11.9 cm versus 13.6 cm, previously. New pleural-based nodularity posterior left upper lung, axial image 6. There is basilar left lower lobe collapse. Only a portion of the left mid lung remains aerated. There is a new moderate to large left pleural effusion and moderate right pleural effusion. Dependent atel ectasis present. New pericardiac adenopathy measuring up to 2.1 cm. Nodular thickening at the left costophrenic angle. Visualized upper abdomen shows no gross abnormality. Mild to moderate degenerative disc disease midthoracic spine. IMPRESSION: 1. Suboptimal contrast bolus limiting assessment for PE. However, we do note a small segmental branch embolus to the basilar right lower lobe, axial image 123. Minimal overall burden. 2. New moderate to large left pleural effusion with atelectatic collapse of the basilar left lower lo be. New moderate right pleural effusion with adjacent atelectasis. Malignant effusions are not exclud ed given the increasing pleural nodular thickening at the left costophrenic angle and also pleural no dularity posterior left upper lung. Additional disease progression with new pericardiac adenopathy me asuring up to 2.1 cm. 3. This apparent worsening is present concurrently with suspected partial treatment response. The pat ient's left upper lobe mass encasing the left hilum is slightly smaller at 11.9 cm versus 13.6 cm, pr eviously. Mediastinal and hilar lymph nodes are slightly smaller, for example, 1.8 cm lower right par atracheal versus 2.0 cm previously. A [place] critical message alert has been initiated for [facility] via the [employer] Critical Results System on 12/15/2023 5:30 PM. This message alert has been sent to [facility] via the [employer] jennie provided by the clinician for the receipt of Radiology Critical Findings. Message ID [id number]. [facility], , 12/15/2023 5:30 PM
[2023-12-16 07:34] LABS: Glucose,Whole Blood 118 mg/dL (70-110)
[2023-12-16 11:45] LABS: Glucose,Whole Blood 190 mg/dL (70-110)
[2023-12-16 16:13] LABS: Glucose,Whole Blood 321 mg/dL (70-110)
== END | disposition home or self-care (01) ==
LOC: RADCTMAIN 15:25
PROVIDERS: ATTEND Internal Medicine Hematology & Oncology
CPT/HCPCS: 36415; 71275; 82565; 84520

== ENCOUNTER 2023-12-28 21:41 | Inpatient (IN) | payer OTHER, MEDICARE ==
--- NOTE | 2023-12-28 21:46 | ED ---
Altered Mental Status HPI - General Stated Complaint: AMS Source: RN notes reviewed, old records reviewed, Caregiver Mode of arrival: EMS Limitations: altered mental status - History of Present Illness Initial Comments: This is a 63-year-old male with unresponsive event. Patient having difficult responding here in the ER symptoms 1 hour prior to arrival although symptoms are dramatically improving per EMS MD Complaint: altered mental status, confusion, decreased responsiveness, weakness -: hour(s) (1) Severity: severe Consistency of Symptoms: waxing and waning (Improving) Treatments Prior to Arrival: IV fluid, oxygen - Related Data Home Medications Medication Instructions Recorded Confirmed Multivitamins, Thera [Multivitamin 1 tab PO DAILY 09/02/21 12/29/23 (formulary)] Levothyroxine Sodium [Synthroid] 175 mcg PO DAILY 08/30/23 12/29/23 Dorzolamide-Timol 2.23%/0.68% 1 drop BOTH EYES BID 12/16/23 12/29/23 [Cosopt] HYDROcodone/APAP 10-325MG [[place] 1 tab PO Q6H PRN 12/16/23 12/29/23 10-325] Insulin Aspart [NovoLOG Flexpen] See Protocol SQ AC-TID 12/16/23 12/29/23 Insulin Glargine,Hum.rec.anlog 16 units SQ HS 12/16/23 12/29/23 [Lantus Solostar Pen] Apixaban [Eliquis Starter Pack See Taper PO DIRECTED 12/29/23 12/29/23 (for VTE)] Previous Rx's Medication Instructions Recorded Nystatin 100,000 Unit/gm Powd 1 applic TOPICAL TID PRN 7 Days #1 12/21/23 [Mycostatin Powder] each Allergies Allergy/AdvReac Type Severity Reaction Status Date / Time No Known Allergies Allergy Verified 12/29/23 08:44 Review of Systems ROS Statement: Those systems with pertinent positive or pertinent negative responses have been documented in the HPI. ROS Other: All systems not noted in ROS Statement are negative. 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 CT SCAN SHOWING MASS LT LUNG. HAVING SOB History of Any Multi-Drug Resistant Organisms: None Reported Past Surgical History: Orthopedic Surgery (Right ankle surgery) Additional Past Surgical History / Comment(s): eye surgery-BILAT GLAUCOMA. 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 AGO LT EYE Past Anesthesia/Blood Transfusion Reactions: No Reported Reaction Past Psychological History: No Psychological Hx Reported Smoking Status: Never smoker Past Alcohol Use History: None Reported Past Drug Use History: None Reported Additional Drug Use History / Comment(s): Remote history of marijuana use - Past Family History Mother Family Medical History: No Reported History Father Additional Family Medical History / Comment(s): EtOH abuse General Exam Limitations: altered mental status, physical limitation General appearance: alert, anxious, lethargic, obtunded, in distress Head exam: Present: atraumatic, normocephalic, normal inspection Eye exam: Present: normal appearance, PERRL, EOMI. Absent: scleral icterus, conjunctival injection, periorbital swelling ENT exam: Present: normal exam, mucous membranes moist Neck exam: Present: normal inspection. Absent: tenderness, meningismus, lymphadenopathy Respiratory exam: Present: normal lung sounds bilaterally. Absent: respiratory distress, wheezes, rales, rhonchi, stridor Cardiovascular Exam: Present: regular rate, normal rhythm, normal heart sounds. Absent: systolic murmur, diastolic murmur, rubs, gallop, clicks GI/Abdominal exam: Present: soft, normal bowel sounds. Absent: distended, tenderness, guarding, rebound, rigid Extremities exam: Present: normal inspection, full ROM, normal capillary refill. Absent: tenderness, pedal edema, joint swelling, calf tenderness Back exam: Present: normal inspection Neurological exam: Present: alert, oriented X3, CN II-XII intact Psychiatric exam: Present: normal affect, normal mood Skin exam: Present: warm, dry, intact, normal color. Absent: rash Course Vital Signs 12/28/23 12/28/23 12/28/23 21:51 21:53 23:10 Temperature 97.5 F L Pulse Rate 98 98 90 Respiratory 20 16 20 Rate Blood Pressure 143/102 131/82 117/86 O2 Sat by Pulse 96 96 99 Oximetry 12/29/23 12/29/23 12/29/23 01:25 03:00 05:31 Temperature Pulse Rate 79 79 81 Respiratory 16 15 18 Rate Blood Pressure 127/89 108/68 121/85 O2 Sat by Pulse 100 100 100 Oximetry 1112/29/23 12/29/23 10:02 13:00 14:23 Temperature Pulse Rate 80 83 84 Respiratory 20 18 16 Rate Blood Pressure 131/96 122/88 108/77 O2 Sat by Pulse 99 99 99 Oximetry 12/29/23 12/29/23 12/29/23 18:06 18:55 22:00 Temperature Pulse Rate 81 83 79 Respiratory 20 20 18 Rate Blood Pressure 107/67 113/73 119/81 O2 Sat by Pulse 96 99 99 Oximetry 12/30/23 12/30/23 12/30/23 00:00 00:40 02:00 Temperature Pulse Rate 68 69 63 Respiratory 15 18 14 Rate Blood Pressure 132/89 132/89 123/87 O2 Sat by Pulse 99 98 Oximetry 12/30/23 12/30/23 12/30/23 04:00 06:00 08:00 Temperature Pulse Rate 64 64 60 Respiratory 16 18 Rate Blood Pressure 112/87 108/73 121/85 O2 Sat by Pulse 98 95 Oximetry - Reevaluation(s) Reevaluation #1: 12/28/23 21:55 Medical records reviewed Reevaluation #2: 12/28/23 22:22 Patient has improving symptoms here in the ER Reevaluation #3: Patient informed of results and questions answered Reevaluation #4: 12/28/23 21:55 Was pt. sent in by a medical professional or institution (, PA, CHILD SUPPORT INVESTIGATOR, urgent care, hospital, or fpc...) When possible be specific @ -no Did you speak to anyone other than the patient for history (EMS, parent, family, police, friend...)? What history was obtained from this source @ -no Did you review nursing and triage notes (agree or disagree)? Why? @ -agree Are old charts reviewed (outside hosp., previous admission, EMS record, old EKG, old radiological studies, urgent care reports/EKG's, fpc records)? Report findings @ -yes Differential Diagnosis (chest pain, altered mental status, abdominal pain women, abdominal pain men, vaginal bleeding, weakness, fever, dyspnea, syncope, headache, dizziness, GI bleed, back pain, seizure, CVA, palpatations, mental health, musculoskeletal)? @ -prior EKG interpreted by me (3pts min.). @ -yes X-rays interpreted by me (1pt min.). @ -yes negative for acute disease CT interpreted by me (1pt min.). @ -Yes positive for brain metastasis U/S interpreted by me (1pt. min.). @ -no What testing was considered but not performed or refused? (CT, X-rays, U/S, labs)? Why? @ -none What meds were considered but not given or refused? Why? @ -none Did you discuss the management of the patient with other professionals (topher storey i.e. , PA, CHILD SUPPORT INVESTIGATOR, lab, RT, psych nurse, social sciences research scientist, level designer, teacher, desk officer, keycase assembler)? Give summary @ -no Was smoking cessation discussed for >3mins.? @ -no Was critical care preformed (if so, how long)? @ -yes31 Were there social determinants of health that impacted care today? How? (Homelessness, low income, unemployed, alcoholism, drug addiction, transportation, low edu. Level, literacy, decrease access to med. care, assisted, rehab)? @ -none Was there de-escalation of care discussed even if they declined (Discuss DNR or withdrawal of care, Hospice)? DNR status @ -no What co-morbidities impacted this encounter? (DM, HTN, Smoking, COPD, CAD, Cancer, CVA, ARF, Chemo, Hep., AIDS, mental health diagnosis, sleep apnea, morbid obesity)? @ -none Was patient admitted / discharged? Hospital course, mention meds given and route, prescriptions, significant lab abnormalities, going to OR and other pertinent info. @ - 63 male will be admitted for brief unresponsive episode, altered mental status and syncopal event Admitted Undiagnosed new problem with uncertain prognosis? @ -no Drug Therapy requiring intensive monitoring for toxicity (Heparin, Nitro, Insulin, Cardizem)? @ -no Were any procedures done? @ -no Diagnosis/symptom? @ -Brain metastasis from known cancer, seizure activity with postictal state Acute, or Chronic, or Acute on Chronic? @ -Acute Uncomplicated (without systemic symptoms) or Complicated (systemic symptoms)? @ -Complicated Side effects of treatment? @ -no Exacerbation, Progression, or Severe Exacerbation? @ -exacerbation Poses a threat to life or bodily function? How? (Chest pain, USA, NH, pneumonia, PE, COPD, DKA, ARF, appy, cholecystitis, CVA, Diverticulitis, Homicidal, Suicidal, threat to staff... and all critical care pts) @ -yes Reevaluation #5: Differential Altered Mental Status: Hypoglycemia, DKA, hypercapnia, ETOH, overdose, CO poisoning, trauma, myxedema coma, HTN encephalopathy, infection, encephalitis, psychosis, intercranial hemorrhage, hepatic encephalopathy, meningitis, CVA, this is not meant to be an all-inclusive list - Consultations Consultation #1: Spoke with hector who agrees to admit this patient Medical Decision Making - Medical Decision Making 63 male will be admitted for brief unresponsive episode, altered mental status and syncopal event - Lab Data Result diagrams: 01/01/24 06:36 01/01/24 06:36 Lab Results 12/28/23 12/28/23 12/28/23 Range/Units 22:07 22:07 22:07 WBC 13.1 H (3.8-10.6) k/uL RBC 3.55 L (4.30-5.90) m/uL Hgb 10.7 L (13.0-17.5) gm/dL Hct 34.3 L (39.0-53.0) % MCV 96.5 (80.0-100.0) fL MCH 30.1 (25.0-35.0) pg MCHC 31.2 (31.0-37.0) g/dL RDW 15.5 (11.5-15.5) % Plt Count 1185 H* (150-450) k/uL MPV 7.1 Neutrophils % 85 % Lymphocytes % 4 % Monocytes % 6 % Eosinophils % 4 % Basophils % 0 % Neutrophils # 11.2 H (1.3-7.7) k/uL Lymphocytes # 0.5 L (1.0-4.8) k/uL Monocytes # 0.8 (0-1.0) k/uL Eosinophils # 0.5 (0-0.7) k/uL Basophils # 0.1 (0-0.2) k/uL Manual Slide Review Performed PT (10.0-12.5) sec INR (<1.2) APTT (22.0-30.0) sec Sodium 127 L (137-145) mmol/L Potassium 5.1 (3.5-5.1) mmol/L Chloride 93 L (98-107) mmol/L Carbon Dioxide 30 (22-30) mmol/L Anion Gap 4 mmol/L BUN 12 (9-20) mg/dL Creatinine 0.67 (0.66-1.25) mg/dL Est GFR (CKD-EPI)AfAm >90 (>60 ml/min/1.73 sqM) Est GFR (CKD-EPI)NonAf >90 (>60 ml/min/1.73 sqM) Glucose 258 H (74-99) mg/dL POC Glucose (mg/dL) (70-110) mg/dL POC Glu Filling Hand ID Plasma Lactic Acid Owen 2.5 H* (0.7-2.0) mmol/L Calcium 8.5 (8.4-10.2) mg/dL Phosphorus 3.8 (2.5-4.5) mg/dL Magnesium 1.5 L (1.6-2.3) mg/dL Total Bilirubin 0.5 (0.2-1.3) mg/dL AST 73 H (17-59) U/L ALT 38 (4-49) U/L Alkaline Phosphatase 394 H (38-126) U/L Ammonia <9 (<30) umol/L Troponin I (0.000-0.034) ng/mL NT-Pro-B Natriuret Pep 436 pg/mL Total Protein 6.3 (6.3-8.2) g/dL Albumin 3.0 L (3.5-5.0) g/dL TSH 33.800 H (0.465-4.680) mIU/L Urine Color Urine Appearance (Clear) Urine pH (5.0-8.0) Ur Specific [place] (1.001-1.035) Urine Protein (Negative) Urine Glucose (UA) (Negative) Urine Ketones (Negative) Urine Blood (Negative) Urine Nitrite (Negative) Urine Bilirubin (Negative) Urine Urobilinogen (<2.0) mg/dL Ur Leukocyte Esterase (Negative) Serum Alcohol <10 mg/dL 12/28/23 12/28/23 12/28/23 Range/Units 22:07 22:07 22:07 WBC (3.8-10.6) k/uL RBC (4.30-5.90) m/uL Hgb (13.0-17.5) gm/dL Hct (39.0-53.0) % MCV (80.0-100.0) fL MCH (25.0-35.0) pg MCHC (31.0-37.0) g/dL RDW (11.5-15.5) % Plt Count (150-450) k/uL MPV Neutrophils % % Lymphocytes % % Monocytes % % Eosinophils % % Basophils % % Neutrophils # (1.3-7.7) k/uL Lymphocytes # (1.0-4.8) k/uL Monocytes # (0-1.0) k/uL Eosinophils # (0-0.7) k/uL Basophils # (0-0.2) k/uL Manual Slide Review PT 12.1 (10.0-12.5) sec INR 1.1 (<1.2) APTT 26.9 (22.0-30.0) sec Sodium (137-145) mmol/L Potassium (3.5-5.1) mmol/L Chloride (98-107) mmol/L Carbon Dioxide (22-30) mmol/L Anion Gap mmol/L BUN (9-20) mg/dL Creatinine (0.66-1.25) mg/dL Est GFR (CKD-EPI)AfAm (>60 ml/min/1.73 sqM) Est GFR (CKD-EPI)NonAf (>60 ml/min/1.73 sqM) Glucose (74-99) mg/dL POC Glucose (mg/dL) (70-110) mg/dL POC Glu Filling Hand ID Plasma Lactic Acid Owen (0.7-2.0) mmol/L Calcium (8.4-10.2) mg/dL Phosphorus (2.5-4.5) mg/dL Magnesium (1.6-2.3) mg/dL Total Bilirubin (0.2-1.3) mg/dL AST (17-59) U/L ALT (4-49) U/L Alkaline Phosphatase (38-126) U/L Ammonia (<30) umol/L Troponin I <0.012 (0.000-0.034) ng/mL NT-Pro-B Natriuret Pep pg/mL Total Protein (6.3-8.2) g/dL Albumin (3.5-5.0) g/dL TSH (0.465-4.680) mIU/L Urine Color Colorless Urine Appearance Clear (Clear) Urine pH 7.0 (5.0-8.0) Ur Specific [place] 1.006 (1.001-1.035) Urine Protein Negative (Negative) Urine Glucose (UA) 2+ H (Negative) Urine Ketones Negative (Negative) Urine Blood Negative (Negative) Urine Nitrite Negative (Negative) Urine Bilirubin Negative (Negative) Urine Urobilinogen <2.0 (<2.0) mg/dL Ur Leukocyte Esterase Negative (Negative) Serum Alcohol mg/dL 12/28/23 Range/Units 22:07 WBC (3.8-10.6) k/uL RBC (4.30-5.90) m/uL Hgb (13.0-17.5) gm/dL Hct (39.0-53.0) % MCV (80.0-100.0) fL MCH (25.0-35.0) pg MCHC (31.0-37.0) g/dL RDW (11.5-15.5) % Plt Count (150-450) k/uL MPV Neutrophils % % Lymphocytes % % Monocytes % % Eosinophils % % Basophils % % Neutrophils # (1.3-7.7) k/uL Lymphocytes # (1.0-4.8) k/uL Monocytes # (0-1.0) k/uL Eosinophils # (0-0.7) k/uL Basophils # (0-0.2) k/uL Manual Slide Review PT (10.0-12.5) sec INR (<1.2) APTT (22.0-30.0) sec Sodium (137-145) mmol/L Potassium (3.5-5.1) mmol/L Chloride (98-107) mmol/L Carbon Dioxide (22-30) mmol/L Anion Gap mmol/L BUN (9-20) mg/dL Creatinine (0.66-1.25) mg/dL Est GFR (CKD-EPI)AfAm (>60 ml/min/1.73 sqM) Est GFR (CKD-EPI)NonAf (>60 ml/min/1.73 sqM) Glucose (74-99) mg/dL POC Glucose (mg/dL) 263 H (70-110) mg/dL POC Glu Filling Hand ID [place] Plasma Lactic Acid [place] (0.7-2.0) mmol/L Calcium (8.4-10.2) mg/dL Phosphorus (2.5-4.5) mg/dL Magnesium (1.6-2.3) mg/dL Total Bilirubin (0.2-1.3) mg/dL AST (17-59) U/L ALT (4-49) U/L Alkaline Phosphatase (38-126) U/L Ammonia (<30) umol/L Troponin I (0.000-0.034) ng/mL NT-Pro-B Natriuret Pep pg/mL Total Protein (6.3-8.2) g/dL Albumin (3.5-5.0) g/dL TSH (0.465-4.680) mIU/L Urine Color Urine Appearance (Clear) Urine pH (5.0-8.0) Ur Specific [place] (1.001-1.035) Urine Protein (Negative) Urine Glucose (UA) (Negative) Urine Ketones (Negative) Urine Blood (Negative) Urine Nitrite (Negative) Urine Bilirubin (Negative) Urine Urobilinogen (<2.0) mg/dL Ur Leukocyte Esterase (Negative) Serum Alcohol mg/dL - EKG Data -: EKG Interpreted by Me (EKG is sinus 97 MD 157 QRS 79 QTc 379) Critical Care Time Critical Care Time: Yes Total Critical Care Time: 31 Disposition Clinical Impression: Mass of left lung, Pulmonary embolism, Altered mental status, Syncope, Metastasis to brain, Hyponatremia, Pleural effusion, Squamous cell lung cancer Disposition: ADMITTED IP TO THIS HOSP Condition: Serious Is patient prescribed a controlled substance at d/c from ED?: No
[2023-12-28] MEDS: HYDROmorphone 0.5 MG/0.5 ML SYRINGE IVP STA (22:04)
[2023-12-28] MEDS: SODIUM CHLORIDE 0.9% 500 ML 500 ML IV STA (22:05)
[2023-12-28] MEDS: SODIUM CHLORIDE 0.9% 1,000 ML IV STA (22:05)
[2023-12-28 22:08] LABS: Glucose,Whole Blood 263 mg/dL (70-110)
[2023-12-28] MEDS ORDERED: ONDANSETRON 4 MG/2 ML VIAL IVP PRN (22:21)
[2023-12-28 22:23] LABS: Appearance,Urine Clear (Clear); Bilirubin,Urine Negative (Negative); Blood,Urine Negative (Negative); Color,Urine Colorless; Glucose,Urine (UA) 2+ (Negative); Ketones,Urine Negative (Negative); Leukocyte Esterase,Urine Negative (Negative); Nitrite,Urine Negative (Negative); Protein,Urine Negative (Negative); Specific Gravity,Urine 1.006 (1.001-1.035); Urobilinogen,Urine <2.0 mg/dL (<2.0)
--- NOTE | 2023-12-28 22:24 | XR ---
EXAMINATION TYPE: XR pelvis AP view DATE OF EXAM: 12/28/2023 CLINICAL HISTORY: Altered mental status. History of lung cancer. TECHNIQUE: A single AP view of the pelvis is obtained. COMPARISON: None. FINDINGS: There is no acute fracture/dislocation evident in the pelvis. The hip and sacroiliac join ts appear symmetric and unremarkable. Pubic symphysis is intact. Bilateral vascular calcification and phleboliths are seen . IMPRESSION: There is no acute fracture or dislocation in the pelvis. [facility], , 12/28/2023 10:22 PM
--- NOTE | 2023-12-28 22:27 | XR ---
EXAMINATION TYPE: XR chest 1V DATE OF EXAM: 12/28/2023 COMPARISON: Prior chest x-ray December 20, 2023 HISTORY: Altered mental status. History of lung cancer on chemotherapy. TECHNIQUE: Single frontal view of the chest is obtained. FINDINGS: Persistent moderate-sized right pleural effusion. Persistent small left pleural effusion. Persistent diffuse left lung increased opacity. Cardiac silhouette size stable within normal limits. Osseous structures are intact. IMPRESSION: Stable moderate-sized right pleural effusion. Stable small left pleural effusion. Stable left lung opacity consistent with neoplasm and atelectatic change/scarring. [facility], , 12/28/2023 10:25 PM
[2023-12-28 22:32] LABS: INR 1.1 (<1.2); Partial Thromboplastin Time 26.9 sec (22.0-30.0); Prothrombin Time 12.1 sec (10.0-12.5)
[2023-12-28 22:33] LABS: African American GFR (CKD) >90 (>60 ml/min/1.73 sqM); Anion Gap 4 mmol/L; Blood Urea Nitrogen 12 mg/dL (9-20); Calcium 8.5 mg/dL (8.4-10.2); Carbon Dioxide 30 mmol/L (22-30); Chloride 93 mmol/L (98-107); Glucose 258 mg/dL (74-99); Non-African American GFR(CKD) >90 (>60 ml/min/1.73 sqM); Phosphorus 3.8 mg/dL (2.5-4.5); Potassium 5.1 mmol/L (3.5-5.1); Sodium 127 mmol/L (137-145)
[2023-12-28 22:34] LABS: ALT 38 U/L (4-49); AST 73 U/L (17-59); Alcohol <10 mg/dL; Alkaline Phosphatase 394 U/L (38-126); Magnesium 1.5 mg/dL (1.6-2.3); Total Bilirubin 0.5 mg/dL (0.2-1.3); Total Protein 6.3 g/dL (6.3-8.2)
[2023-12-28 22:39] LABS: Basophils # (A) 0.1 k/uL (0-0.2); Basophils % (A) 0 %; Eosinophils # (A) 0.5 k/uL (0-0.7); Eosinophils % (A) 4 %; HCT 34.3 % (39.0-53.0); HGB 10.7 gm/dL (13.0-17.5); Lymphocytes # (A) 0.5 k/uL (1.0-4.8); Lymphocytes % (A) 4 %; MCH 30.1 pg (25.0-35.0); MCHC 31.2 g/dL (31.0-37.0); MCV 96.5 fL (80.0-100.0); Mean Platelet Volume 7.1; Monocytes # (A) 0.8 k/uL (0-1.0); Monocytes % (A) 6 %; Neutrophils # (A) 11.2 k/uL (1.3-7.7); Neutrophils % (A) 85 %; RBC 3.55 m/uL (4.30-5.90); RDW 15.5 % (11.5-15.5); WBC 13.1 k/uL (3.8-10.6)
[2023-12-28 22:42] LABS: NT-Pro-B-Type Natriuretic Pept 436 pg/mL
[2023-12-28 22:44] LABS: Platelet Count 1185 k/uL (150-450)
--- NOTE | 2023-12-28 22:48 | CT ---
EXAMINATION TYPE: CT brain cspine wo con DATE OF EXAM: 12/28/2023 COMPARISON: Prior trauma CT September 02, 2021 HISTORY: Patient was found around 1930 by to be unresponsive and "not acting normal self" per EM S report. Upon arrival to ED pt is alert and oriented patient is answering all questions appropriatel y. Pt is a chemo patient for lung CA. CT DLP: 1479.9 mGycm. Automated Exposure Control for Dose Reduction was Utilized. TECHNIQUE: CT scan of the head and cervical spine are performed without contrast. FINDINGS: There is a 1.8 cm hyperdense focus right occipital lobe axial image 38 with surrounding h ypodensity or vasogenic edema. No midline shift. Bilateral cortical victorino are redemonstrated. Ventr icles and sulci within normal limits in size for patient's age. There is small mucous retention cyst or polyp in the posterior left maxillary sinus redemonstrated otherwise paranasal sinuses are clear. Cervical spine is visualized in its entirety from C1 through upper thoracic levels and demonstrates s table and satisfactory alignment without evidence of acute fracture or dislocation. Prevertebral sof t tissue appears within normal limits. The C1-C2 articulation is within normal limits on the coronal images. Vertebral body heights are maintained. [id number]-vc-[id number] multilevel spurring and disc space narrowing in the cervical spine is present. Axial images show multilevel uncovertebral facet degenera tive changes bilaterally. Thyroid gland is poorly seen. Pleural fluid fills the left lung apex on cur rent study. IMPRESSION: 1. There is no acute fracture or dislocation evident in the cervical spine. 2. There is 1.8 cm hemorrhagic metastatic focus right occipital lobe with local mass effect/surroundi ng vasogenic edema. [facility], , 12/28/2023 10:46 PM
[2023-12-28 22:52] LABS: Lactic Acid, Venous 2.5 mmol/L (0.7-2.0)
[2023-12-28] MEDS: HYDROmorphone 1 MG/ML 1 ML SYRINGE IVP PRN (23:09)
[2023-12-28] MEDS: DEXAMETHASONE SOD PHOSPHATE 10 MG/ML 1 ML VIAL IVP STA (23:09)
[2023-12-28] MEDS: levETIRAcetam IV 500 MG/5 ML VIAL IVP SCH (23:40)
[2023-12-28] MEDS: SODIUM CHLORIDE 0.9% 1,000 ML IV SCH (23:41)
--- NOTE | 2023-12-29 01:23 | P.HPIM ---
History of Present Illness H&P Date: 12/28/23 Chief Complaint: AMS History of present illness; 63-year-old male with a PMH of stage IV lung mass (primary tumor versus metastasis from previous head and neck cancer from 2021, following with Dr. Roblero, receiving chemotherapy), diabetes mellitus type I, history of recent PE (on Eliquis), and hypothyroidism presents with symptoms of altered mental status. Per EMS/ED nurse the patient's found him upstairs in bed unresponsive to his name. Patient's then called EMS who were only able to arouse the patient via sternal rub. The patient was reportedly unr esponsive for several minutes at home. He was reported to have experienced urinary incontinuence by EMS staff. Patient reports he stood up while at home and felt winded and dizzy and then fell forward onto his chest but denies hitting his head, loss of consciousness, or loss of bowel or urine. denies hearing the patient fall at home. Patient admits to mild shortness of breath as well as chest and back pain which he notes are more chronic in nature but denies headache, palpitations, abdominal pain, nausea vomiting, diarrhea, constipation. While in the ED patient's symptoms of being altered significantly improved to where he is now back close to his baseline mentation. Surgical history: Eye surgery (bilateral glaucoma) and left eye retinal detachment repair Family history: Alcohol abuse Social history: Never smoker, remote history of marijuana use. Initial lab work from the ER was significant for sodium 127, potassium 5.1, chloride 93, creatinine 0.67, glucose 258, magnesium 1.5, AST 73, ALT 38, alkaline phosphatase 394, troponin less than 0.012, BNP 436, serum alcohol <10. Urinalysis noncontributory other than 2+ glucose EKG done in the ER showed heart rate of 97 bpm, no ST segment elevation or depression seen, no T-wave inversions seen. Sinus rhythm, borderline right axis deviation, QTc 397. ER CXR: Stable moderate-sized right pleural effusion. Stable small left pleural effusion. Stable left lung opacity consistent with neoplasm and atelectatic change/scarring. ER pelvis x-ray: No acute fracture or dislocation in the pelvis ER CT head: No acute fracture or dislocation evident in the cervical spine, 1.8 cm hemorrhagic metastatic focus right occipital lobe with local mass effect/surrounding vasogenic edema Patient admitted to internal medicine service REVIEW OF SYSTEMS: As stated above in HPI. The rest of the 14-point review of systems is negative. PHYSICAL EXAMINATION: GENERAL: The patient is alert and oriented x3, not in any acute distress. Well developed, well nourished. HEENT: Pupils are round and equally reacting to light. EOMI. No scleral icterus. No conjunctival pallor. Normocephalic, atraumatic. CARDIOVASCULAR: S1 and S2 present. No murmurs, rubs, or gallops. PULMONARY: Decreased lung sounds bilaterally ABDOMEN: Soft, nontender, nondistended, normoactive bowel sounds. No palpable organomegaly. Pleurx catheter appreciated on mid left abdomen with no signs of surrounding erythema or discharge. MUSCULOSKELETAL: No joint swelling or deformity. EXTREMITIES: No cyanosis, clubbing. Pitting edema appreciated bilaterally 3+ from the mid calf down and 12+ from mid calf to knee. NEUROLOGICAL: Gross neurological examination did not reveal any focal deficits. SKIN: No rashes. Assessment: 63-year-old male with a PMH of stage IV lung mass, diabetes mellitus and hypothyroidism presents with symptoms of altered mental status. Patient is admitted to the internal medicine service for further workup and evaluation of altered mental status. Plan: #Altered mental status: DDX seizures (in setting of brain metastasis) vs. sepsis vs. myxedema coma vs. chemotherapy side effect vs. cardiogenic shock vs. meningitis -Symptoms significantly improved 1 hour after arrival to the ED -TSH 33.8 here, meet SIRS criteria, is currently receiving chemotherapy infusi ons -Continue Keppra 1000 mg IVP every 12 hours -Fall and seizure precautions -Neurology consult # Sepsis: Potential source bilateral pleural effusion, although that is likely malignant in the setting of underlying lung cancer #Leukocytosis, potentially reactive #Lactic acidosis -WBC 13.1 -Continue IV fluids -Ordered blood cultures -Continue to monitor Chronic: #Stage IV lung mass #Recurrent malignant effusion #Hemorrhagic metastatic focus right occipital lobe with local mass effect #Thrombocytosis, likely due to malignancy -Patient recently admitted over a week ago for shortness of breath and found to have malignant effusion -Left Pleurx catheter placed -Normally on 2 L at home, currently saturating well on 2 L here -Hematology oncology consulted -Currently on chemotherapy, next infusion scheduled for 12/28 -Continue to monitor CBC #Diastolic CHF (EF 55 to 60%) -Echo from 12/13 shows grade 1 diastolic dysfunction #Diabetes mellitus type I: -Ordered sliding scale -Accu-Cheks #Hypothyroidism: -TSH here 33.8 -Continue home Synthroid once meds are confirmed by pharmacy -Check FT4 and T3 levels #Hyponatremia, chronic, at baseline -Continue to monitor F: NS 75 cc/h E: None N: Regular diet DVT ppx: Lovenox 40 SQ daily GI ppx: Protonix 40 mg p.o. daily Dispo: Pending clinical course. Jacob Negrete MD PGY-1 FM Dictation was produced using [employer] dictation software. please excuse any grammatical, word or spelling errors. 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 CT SCAN SHOWING MASS LT LUNG. HAVING SOB History of Any Multi-Drug Resistant Organisms: None Reported Past Surgical History: Orthopedic Surgery (Right ankle surgery) Additional Past Surgical History / Comment(s): eye surgery-BILAT GLAUCOMA. 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 AGO LT EYE Past Anesthesia/Blood Transfusion Reactions: No Reported Reaction Past Psychological History: No Psychological Hx Reported Smoking Status: Never smoker Past Alcohol Use History: None Reported Past Drug Use History: None Reported Additional Drug Use History / Comment(s): Remote history of marijuana use - Past Family History Mother Family Medical History: No Reported History Father Additional Family Medical History / Comment(s): EtOH abuse Medications and Allergies Home Medications Medication Instructions Recorded Confirmed Type Multivitamins, Thera [Multivitamin 1 tab PO DAILY 09/02/21 12/16/23 History (formulary)] Levothyroxine Sodium [Synthroid] 175 mcg PO DAILY 08/30/23 12/16/23 History Dorzolamide-Timol 2.23%/0.68% 1 drop BOTH EYES BID 12/16/23 12/16/23 History [Cosopt] HYDROcodone/APAP 10-325MG [[place] 1 tab PO Q6H PRN 12/16/23 12/16/23 History 10-325] Insulin Aspart [NovoLOG Flexpen] See Protocol SQ AC-TID 12/16/23 12/16/23 History Insulin Glargine,Hum.rec.anlog 16 units SQ DAILY 12/16/23 12/16/23 History [Lantus Solostar Pen] Apixaban [Eliquis Starter Pack 5 - 10 mg PO DIRECTED 30 Days 12/19/23 Rx (for VTE)] #1 each Nystatin 100,000 Unit/gm Powd 1 applic TOPICAL TID PRN 7 Days #1 12/21/23 Rx [Mycostatin Powder] each Allergies Allergy/AdvReac Type Severity Reaction Status Date / Time No Known Allergies Allergy Verified 12/28/23 21:53 Physical Exam Vitals: Vital Signs Temp Pulse Resp BP Pulse Ox 12/28/23 21:53 98 16 131/82 96 12/28/23 21:51 97.5 F L 98 20 143/102 96 Intake and Output 12/28/23 12/28/23 12/28/23 06:59 14:59 22:59 Other: Weight 72.575 kg Results CBC & Chem 7: 12/28/23 22:07 12/28/23 22:07 Labs: Abnormal Lab Results - Last 24 Hours (Table) 12/28/23 12/28/23 12/28/23 Range/Units 22:07 22:07 22:07 Sodium 127 L (137-145) mmol/L Chloride 93 L (98-107) mmol/L Glucose 258 H (74-99) mg/dL POC Glucose (mg/dL) 263 H (70-110) mg/dL Magnesium 1.5 L (1.6-2.3) mg/dL AST 73 H (17-59) U/L Alkaline Phosphatase 394 H (38-126) U/L Albumin 3.0 L (3.5-5.0) g/dL Urine Glucose (UA) 2+ H (Negative)
[2023-12-29 01:33] LABS: Glucose,Whole Blood 265 mg/dL (70-110)
[2023-12-29] MEDS: DEXAMETHASONE SOD PHOSPHATE 4 MG/ML 1 ML VIAL IVP SCH (01:39)
[2023-12-29 05:16] LABS: ALT 37 U/L (4-49); AST 55 U/L (17-59); African American GFR (CKD) >90 (>60 ml/min/1.73 sqM); Albumin 2.7 g/dL (3.5-5.0); Alkaline Phosphatase 402 U/L (38-126); Anion Gap 4 mmol/L; Blood Urea Nitrogen 13 mg/dL (9-20); Calcium 8.5 mg/dL (8.4-10.2); Carbon Dioxide 28 mmol/L (22-30); Chloride 94 mmol/L (98-107); Glucose 300 mg/dL (74-99); Magnesium 1.6 mg/dL (1.6-2.3); Non-African American GFR(CKD) >90 (>60 ml/min/1.73 sqM); Phosphorus 4.1 mg/dL (2.5-4.5); Potassium 5.3 mmol/L (3.5-5.1); Sodium 126 mmol/L (137-145); Total Bilirubin 0.5 mg/dL (0.2-1.3); Total Protein 5.9 g/dL (6.3-8.2)
[2023-12-29 05:28] LABS: Basophils % (A) 0 %; Eosinophils % (A) 0 %; HCT 33.4 % (39.0-53.0); HGB 10.4 gm/dL (13.0-17.5); Lymphocytes # (A) 0.5 k/uL (1.0-4.8); Lymphocytes % (A) 4 %; MCH 29.9 pg (25.0-35.0); MCHC 31.2 g/dL (31.0-37.0); Mean Platelet Volume 7.4; Monocytes # (A) 0.2 k/uL (0-1.0); Monocytes % (A) 2 %; Neutrophils # (A) 10.6 k/uL (1.3-7.7); Neutrophils % (A) 93 %; RBC 3.48 m/uL (4.30-5.90); RDW 15.6 % (11.5-15.5); WBC 11.4 k/uL (3.8-10.6)
[2023-12-29 05:31] LABS: T4, Free (Free Thyroxine) 1.02 ng/dL (0.78-2.19)
[2023-12-29 05:36] LABS: Platelet Count 1159 k/uL (150-450)
[2023-12-29 07:24] LABS: Glucose,Whole Blood 300 mg/dL (70-110)
[2023-12-29] MEDS ORDERED: HYDROmorphone 2 MG/ML 1 ML SYRINGE IVP PRN (08:02)
[2023-12-29] MEDS ORDERED: ENOXAPARIN 40 MG/0.4 ML SYRINGE SQ SCH (09:00)
[2023-12-29] MEDS: INSULIN ASPART (NovoLOG) 100 UNIT/ML VIAL SQ SCH (10:32)
[2023-12-29] MEDS: PANTOPRAZOLE 40 MG TABLET PO SCH (10:32)
[2023-12-29 12:17] LABS: Glucose,Whole Blood 341 mg/dL (70-110)
--- NOTE | 2023-12-29 12:54 | MR ---
EXAMINATION TYPE: MR brain wo/w con DATE OF EXAM: 12/29/2023 11:25 AM COMPARISON: 09/19/2023. CLINICAL INDICATION: Male, 63 years old with history of AMS, Hx of metastatic H N cancer with brain m ets; PHH, AMS, head and neck cancer with brain mets. TECHNIQUE: Multi planar, multi sequence imaging was performed through the brain including: T1, T2, In version recovery, susceptibility weighted imaging and gradient echo imaging and Diffusion weighted im aging. The patient was then given intravenous contrast and multi planar, T1 fat-saturation images wer e obtained. IV Contrast: 7 mL Gadobutrol FINDINGS: Vasogenic edema within the right parietal/occipital region with scattered areas of restrict ed diffusion. There is nodular heterogenous enhancement within the occipital lobe measuring 26 x 22 x 14 mm. No restricted diffusion to suggest acute/subacute CVA. Mild dilation of ventricular system wi th proportional dilation of ventricles. The bone marrow signal is within normal limits. Paranasal sinuses and mastoid air cells: No significant paranasal sinus disease. Visualized orbits: Orbital contents are intact. IMPRESSION: 1. Right occipital lobe enhancing mass with surrounding vasogenic edema. 2. No evidence for acute/subacute CVA. [facility], , 12/29/2023 12:51 PM
[2023-12-29] MEDS: DORZOLAMIDE-TIMOLOL 2.23%/0.68 10ML BTL BOTH EYES SCH (13:01)
[2023-12-29] MEDS: HYDROcodone/APAP 10-325MG 1 EACH TAB PO PRN (13:12)
[2023-12-29] MEDS: LEVOTHYROXINE 88 MCG TAB PO SCH (13:12)
[2023-12-29 14:11] LABS: Glucose,Whole Blood 362 mg/dL (70-110)
[2023-12-29] MEDS: INSULIN ASPART (NovoLOG) 100 UNIT/ML VIAL SQ ONE ×2 (14:27→18:54)
[2023-12-29 15:56] LABS: % Iron Saturation 21.95 (15.00-50.00)
[2023-12-29] MEDS ORDERED: HYDROmorphone 1 MG/ML 1 ML SYRINGE IVP PRN (15:59)
--- NOTE | 2023-12-29 16:23 | P.PN ---
Subjective Progress Note Date: 12/29/23 63-year-old male with a PMH of stage IV lung mass (primary tumor versus metastasis from previous head and neck cancer from 2021, following with Dr. Roblero, receiving chemotherapy), diabetes mellitus type I, history of recent PE (on Eliquis), and hypothyroidism presents with symptoms of altered mental status. In the ED he underwent extensive evaluation. BP 143/102, HR 98, T 97.5F, RR 20, 96% on 3L NC. Initial lab work from the ER was significant for sodium 127, potassium 5.1, chloride 93, creatinine 0.67, glucose 258, magnesium 1.5, AST 73, ALT 38, alkaline phosphatase 394, troponin less than 0.012, BNP 436, serum alcohol <10. EKG showed heart rate of 97 bpm, no ST segment elevation or depression seen. CXR showed stable moderate-sized right + left pleural effusion, left lung opacity consistent with neoplasm and atelectatic change/scarring. Pelvic XR neg. CT head showed 1.8 cm hemorrhagic metastatic focus right occipital lobe with local mass effect/surrounding vasogenic edema. Patient started on Keppra and admitted for further workup and management. 12/28 Patient was seen and examined. CBC and CMP significant for WBC 11.4, RBC 3.48, Hg 10.4, Hct 33.4, Plt 1159, Na 126, K 5.3, Cl 94, Cr 0.59, glu 300, alk phos 402, alb 2.7. General: non toxic, no distress, appears at stated age Derm: warm, dry Head: atraumatic, normocephalic, symmetric Eyes: EOMI, no lid lag, anicteric sclera Mouth: no lip lesion, mucus membranes moist Cardiovascular: S1S2 reg, no murmur Lungs: Clear to auscultation bilaterally, no rhonchi, no rales , no accessory muscle use Neuro: no focal neuro deficits Psych: Alert, oriented, appropriate affect Based on my assessment of this patient, this patient meets a high complexity level of care. Acute metabolic encephalopathy likely due to seizure from metastatic brain lesion: Started on Keppra 1000 mg IV BID. Seizure and Fall precautions. Telemetry monitoring. Decadron 10 mg IV Q6H. EEG and MR brain ordered. Neurology, Oncology and Rad Onc consult. SIRS: Likely due to above. No signs of active infection. BCx ordered. Monitor fever profile. Hyponatremia likely due to SIADH: Worsened with IVF. Stop IVF and start 1.5L fluid restriction. Hyperkalemia: Mild elevation. Recheck at noon. Diabetes mellitus with hyperglycemia: Restart Levemir 16 units QHS. ISS ACHS with Accuchecks and Hypoglycemic precautions. Thrombocytosis: Likely related to malignancy. Normocytic anemia: Likely related to malignancy. Stage IV lung malignancy: Oncology consult. History of PE: Hold Lovenox and Eliquis for now given hemorrhagic focus seen on CT. Hypothyroidism: Synthroid 176 mcg PO QD. CODE STATUS: FULL CODE. DVT Prophylaxis: SCD GI Prophylaxis: Designated medical POA if patient is not able to make medical decisions for themselves: I have reviewed the following application packaging consultant notes: I have reviewed the results of the following tests: As above. I have ordered the following tests: EEG. Agree with MRI brain. K at noon. CBC and BMP in the AM. I have discussed the care of this patient with the following independent historian: I have independently interpreted the following test below: Discussed with Dr. Joyner. Objective - Vital Signs Vital signs: Vital Signs Temp 97.5 F L 12/28/23 21:51 Pulse 81 12/29/23 05:31 Resp 18 12/29/23 05:31 BP 121/85 12/29/23 05:31 Pulse Ox 100 12/29/23 05:31 FiO2 Intake & Output 12/28/23 12/29/23 12/29/23 18:59 06:59 18:59 Weight 72.575 kg - Labs CBC & Chem 7: 12/29/23 04:24 12/29/23 14:36 Labs: Abnormal Lab Results - Last 24 Hours (Table) 12/28/23 12/28/23 12/28/23 Range/Units 22:07 22:07 22:07 WBC 13.1 H (3.8-10.6) k/uL RBC 3.55 L (4.30-5.90) m/uL Hgb 10.7 L (13.0-17.5) gm/dL Hct 34.3 L (39.0-53.0) % RDW (11.5-15.5) % Plt Count 1185 H* (150-450) k/uL Neutrophils # 11.2 H (1.3-7.7) k/uL Lymphocytes # 0.5 L (1.0-4.8) k/uL Sodium 127 L (137-145) mmol/L Potassium (3.5-5.1) mmol/L Chloride 93 L (98-107) mmol/L Creatinine (0.66-1.25) mg/dL Glucose 258 H (74-99) mg/dL POC Glucose (mg/dL) (70-110) mg/dL Plasma Lactic Acid Owen 2.5 H* (0.7-2.0) mmol/L Magnesium 1.5 L (1.6-2.3) mg/dL AST 73 H (17-59) U/L Alkaline Phosphatase 394 H (38-126) U/L Total Protein (6.3-8.2) g/dL Albumin 3.0 L (3.5-5.0) g/dL TSH 33.800 H (0.465-4.680) mIU/L Urine Glucose (UA) (Negative) 12/28/23 12/28/23 12/29/23 Range/Units 22:07 22:07 01:31 WBC (3.8-10.6) k/uL RBC (4.30-5.90) m/uL Hgb (13.0-17.5) gm/dL Hct (39.0-53.0) % RDW (11.5-15.5) % Plt Count (150-450) k/uL Neutrophils # (1.3-7.7) k/uL Lymphocytes # (1.0-4.8) k/uL Sodium (137-145) mmol/L Potassium (3.5-5.1) mmol/L Chloride (98-107) mmol/L Creatinine (0.66-1.25) mg/dL Glucose (74-99) mg/dL POC Glucose (mg/dL) 263 H 265 H (70-110) mg/dL Plasma Lactic Acid Owen (0.7-2.0) mmol/L Magnesium (1.6-2.3) mg/dL AST (17-59) U/L Alkaline Phosphatase (38-126) U/L Total Protein (6.3-8.2) g/dL Albumin (3.5-5.0) g/dL TSH (0.465-4.680) mIU/L Urine Glucose (UA) 2+ H (Negative) 12/29/23 12/29/23 12/29/23 Range/Units 04:24 04:24 07:23 WBC 11.4 H (3.8-10.6) k/uL RBC 3.48 L (4.30-5.90) m/uL Hgb 10.4 L (13.0-17.5) gm/dL Hct 33.4 L (39.0-53.0) % RDW 15.6 H (11.5-15.5) % Plt Count 1159 H* (150-450) k/uL Neutrophils # 10.6 H (1.3-7.7) k/uL Lymphocytes # 0.5 L (1.0-4.8) k/uL Sodium 126 L (137-145) mmol/L Potassium 5.3 H (3.5-5.1) mmol/L Chloride 94 L (98-107) mmol/L Creatinine 0.59 L (0.66-1.25) mg/dL Glucose 300 H (74-99) mg/dL POC Glucose (mg/dL) 300 H (70-110) mg/dL Plasma Lactic Acid Owen (0.7-2.0) mmol/L Magnesium (1.6-2.3) mg/dL AST (17-59) U/L Alkaline Phosphatase 402 H (38-126) U/L Total Protein 5.9 L (6.3-8.2) g/dL Albumin 2.7 L (3.5-5.0) g/dL TSH (0.465-4.680) mIU/L Urine Glucose (UA) (Negative)
[2023-12-29 16:56] LABS: Glucose,Whole Blood 407 mg/dL (70-110)
--- NOTE | 2023-12-29 16:58 | P.CONS ---
History of Present Illness - Reason for Consult Consult date: 12/29/23 hx lung cancer Requesting physician: Jacob Negrete - Chief Complaint syncope, altered mental status - History of Present Illness Mr. 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 He was lost to follow-up after his had a neck cancer was treated and more recently was found to have a lung mass which was biopsied and found to be positive for moderately differentiated squamous cell carcinoma. He received cycle 1 of palliative chemo/immunotherapy on 12/06/2023 with carboplatin, Alimta, and Keytruda. Came in for cycle 2 of treatment on 12/15/2023 however was noted to be significantly short of breath. Sent for an emergent CT of the chest which revealed bilateral, left greater than right, pleural effusions as well as a small PE. He was sent to the ER where he was started on heparin drip and has undergone a thoracentesis with 1200 cc of hazy fluid removed. Cytology was negative for malignancy. Pleurx drain was placed during that admit. Patient was found by unresponsive at which time she called EMS. It was also reported pt had urinary incontienence. At todays visit, pt is answering questions appropriately, but is lethargic. On admit CT brain and C-spine revealed no acute fracture or dislocation evident in the cervical spine. With a 1.8 cm hemorrhagic metastatic foci in the right occipital lobe with local mass effect/surrounding vasogenic edema, which was not noted on MRI brain obtained on 09/19/23. His anticoagulation has been held. Dexamethasone has been started. Chest x-ray revealed stable moderate-sized right pleural effusion and stable small left pleural effusion. Stable left lung opacity. Labs reviewed, WBC 11.4, hemoglobin 10.4, MCV 96.0, platelets 1159. Creatinine 0.67, GFR greater than 90. Sodium 127, lactic acid 2.5. Bilirubin 0.5, AST 55, ALT 37, ALP 37. TSH 33.8. T3 1.0. Review of Systems 10 point ROS is negative except as stated in the HPI Past Medical History Past Medical History: Cancer, Diabetes Mellitus, Eye Disorder, Thyroid Disorder Additional Past Medical History / Comment(s): HX TONGUE AND NECK CANCER-CHEMO AND RADIATION-NO SURGERY. CT SCAN SHOWING MASS LT LUNG. HAVING SOB History of Any Multi-Drug Resistant Organisms: None Reported Past Surgical History: Orthopedic Surgery (Right ankle surgery) Additional Past Surgical History / Comment(s): eye surgery-BILAT GLAUCOMA. 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 AGO LT EYE Past Anesthesia/Blood Transfusion Reactions: No Reported Reaction Past Psychological History: No Psychological Hx Reported Smoking Status: Never smoker Past Alcohol Use History: None Reported Past Drug Use History: None Reported Additional Drug Use History / Comment(s): Remote history of marijuana use - Past Family History Mother Family Medical History: No Reported History Father Additional Family Medical History / Comment(s): EtOH abuse Medications and Allergies Home Medications Medication Instructions Recorded Confirmed Type Multivitamins, Thera [Multivitamin 1 tab PO DAILY 09/02/21 12/29/23 History (formulary)] Levothyroxine Sodium [Synthroid] 175 mcg PO DAILY 08/30/23 12/29/23 History Dorzolamide-Timol 2.23%/0.68% 1 drop BOTH EYES BID 12/16/23 12/29/23 History [Cosopt] HYDROcodone/APAP 10-325MG [[place] 1 tab PO Q6H PRN 12/16/23 12/29/23 History 10-325] Insulin Aspart [NovoLOG Flexpen] See Protocol SQ AC-TID 12/16/23 12/29/23 History Insulin Glargine,Hum.rec.anlog 16 units SQ HS 12/16/23 12/29/23 History [Lantus Solostar Pen] Nystatin 100,000 Unit/gm Powd 1 applic TOPICAL TID PRN 7 Days #1 12/21/23 12/29/23 Rx [Mycostatin Powder] each Apixaban [Eliquis Starter Pack See Taper PO DIRECTED 12/29/23 12/29/23 History (for VTE)] Allergies Allergy/AdvReac Type Severity Reaction Status Date / Time No Known Allergies Allergy Verified 12/29/23 08:44 Physical Exam Vitals: Vital Signs Temp Pulse Resp BP Pulse Ox 12/29/23 10:02 80 20 131/96 99 12/29/23 05:31 81 18 121/85 100 12/29/23 03:00 79 15 108/68 100 12/29/23 01:25 79 16 127/89 100 12/28/23 23:10 90 20 117/86 99 12/28/23 21:53 98 16 131/82 96 12/28/23 21:51 97.5 F L 98 20 143/102 96 Intake and Output 12/28/23 12/29/23 12/29/23 22:59 06:59 14:59 Other: Weight 72.575 kg - Constitutional General appearance: average body habitus, no acute distress - EENT Eyes: anicteric sclerae, EOMI ENT: hearing grossly normal - Respiratory Respiratory: bilateral: CTA - Cardiovascular Rhythm: regular - Gastrointestinal General gastrointestinal: soft, no tenderness - Integumentary Integumentary: no cyanotic - Neurologic lethargic - Musculoskeletal Musculoskeletal: generalized weakness Results CBC & Chem 7: 12/29/23 04:24 12/29/23 14:36 Labs: Abnormal Lab Results - Last 24 Hours (Table) 12/28/23 12/28/23 12/28/23 Range/Units 22:07 22:07 22:07 WBC 13.1 H (3.8-10.6) k/uL RBC 3.55 L (4.30-5.90) m/uL Hgb 10.7 L (13.0-17.5) gm/dL Hct 34.3 L (39.0-53.0) % RDW (11.5-15.5) % Plt Count 1185 H* (150-450) k/uL Neutrophils # 11.2 H (1.3-7.7) k/uL Lymphocytes # 0.5 L (1.0-4.8) k/uL Sodium 127 L (137-145) mmol/L Potassium (3.5-5.1) mmol/L Chloride 93 L (98-107) mmol/L Creatinine (0.66-1.25) mg/dL Glucose 258 H (74-99) mg/dL POC Glucose (mg/dL) (70-110) mg/dL Plasma Lactic Acid Owen 2.5 H* (0.7-2.0) mmol/L Magnesium 1.5 L (1.6-2.3) mg/dL AST 73 H (17-59) U/L Alkaline Phosphatase 394 H (38-126) U/L Total Protein (6.3-8.2) g/dL Albumin 3.0 L (3.5-5.0) g/dL TSH 33.800 H (0.465-4.680) mIU/L Free T3 pg/mL (2.30-4.20) pg/mL Urine Glucose (UA) (Negative) 12/28/23 12/28/23 12/29/23 Range/Units 22:07 22:07 01:31 WBC (3.8-10.6) k/uL RBC (4.30-5.90) m/uL Hgb (13.0-17.5) gm/dL Hct (39.0-53.0) % RDW (11.5-15.5) % Plt Count (150-450) k/uL Neutrophils # (1.3-7.7) k/uL Lymphocytes # (1.0-4.8) k/uL Sodium (137-145) mmol/L Potassium (3.5-5.1) mmol/L Chloride (98-107) mmol/L Creatinine (0.66-1.25) mg/dL Glucose (74-99) mg/dL POC Glucose (mg/dL) 263 H 265 H (70-110) mg/dL Plasma Lactic Acid Owen (0.7-2.0) mmol/L Magnesium (1.6-2.3) mg/dL AST (17-59) U/L Alkaline Phosphatase (38-126) U/L Total Protein (6.3-8.2) g/dL Albumin (3.5-5.0) g/dL TSH (0.465-4.680) mIU/L Free T3 pg/mL (2.30-4.20) pg/mL Urine Glucose (UA) 2+ H (Negative) 12/29/23 12/29/23 12/29/23 Range/Units 04:24 04:24 07:23 WBC 11.4 H (3.8-10.6) k/uL RBC 3.48 L (4.30-5.90) m/uL Hgb 10.4 L (13.0-17.5) gm/dL Hct 33.4 L (39.0-53.0) % RDW 15.6 H (11.5-15.5) % Plt Count 1159 H* (150-450) k/uL Neutrophils # 10.6 H (1.3-7.7) k/uL Lymphocytes # 0.5 L (1.0-4.8) k/uL Sodium 126 L (137-145) mmol/L Potassium 5.3 H (3.5-5.1) mmol/L Chloride 94 L (98-107) mmol/L Creatinine 0.59 L (0.66-1.25) mg/dL Glucose 300 H (74-99) mg/dL POC Glucose (mg/dL) 300 H (70-110) mg/dL Plasma Lactic Acid Owen (0.7-2.0) mmol/L Magnesium (1.6-2.3) mg/dL AST (17-59) U/L Alkaline Phosphatase 402 H (38-126) U/L Total Protein 5.9 L (6.3-8.2) g/dL Albumin 2.7 L (3.5-5.0) g/dL TSH (0.465-4.680) mIU/L Free T3 pg/mL 1.00 L (2.30-4.20) pg/mL Urine Glucose (UA) (Negative) 12/29/23 12/29/23 Range/Units 10:22 12:15 WBC (3.8-10.6) k/uL RBC (4.30-5.90) m/uL Hgb (13.0-17.5) gm/dL Hct (39.0-53.0) % RDW (11.5-15.5) % Plt Count (150-450) k/uL Neutrophils # (1.3-7.7) k/uL Lymphocytes # (1.0-4.8) k/uL Sodium (137-145) mmol/L Potassium 5.8 H (3.5-5.1) mmol/L Chloride (98-107) mmol/L Creatinine (0.66-1.25) mg/dL Glucose (74-99) mg/dL POC Glucose (mg/dL) 341 H (70-110) mg/dL Plasma Lactic Acid Owen (0.7-2.0) mmol/L Magnesium (1.6-2.3) mg/dL AST (17-59) U/L Alkaline Phosphatase (38-126) U/L Total Protein (6.3-8.2) g/dL Albumin (3.5-5.0) g/dL TSH (0.465-4.680) mIU/L Free T3 pg/mL (2.30-4.20) pg/mL Urine Glucose (UA) (Negative) Chest x-ray: report reviewed CT Scan - head: report reviewed MRI - head: report reviewed Assessment and Plan (1) Altered mental status Current Visit: Yes Status: Acute Priority: High Code(s): R41.82 - ALTERED MENTAL STATUS, UNSPECIFIED SNOMED Code(s): 173380850 (2) Metastasis to brain Current Visit: Yes Status: Acute Priority: High Code(s): C79.31 - SECONDARY MALIGNANT NEOPLASM OF BRAIN SNOMED Code(s): 83080444 (3) Syncope Current Visit: Yes Status: Acute Priority: High Code(s): R55 - SYNCOPE AND COLLAPSE SNOMED Code(s): 808926265 (4) Hyponatremia Current Visit: Yes Status: Acute Priority: Medium Code(s): E87.1 - HYPO- OSMOLALITY AND HYPONATREMIA SNOMED Code(s): 49759922 (5) Squamous cell lung cancer Current Visit: No Status: Acute Priority: High Code(s): C34.90 - MALIGNANT NEOPLASM OF UNSP PART OF UNSP BRONCHUS OR LUNG SNOMED Code(s): 743951640 Plan: Altered mental status, syncope: Presented for altered mental status and syncope -On admit CT brain and C-spine revealed no acute fracture or dislocation evident in the cervical spine. With a 1.8 cm hemorrhagic metastatic foci in the right occipital lobe with local mass effect/surrounding vasogenic edema, which was not noted on MRI brain obtained on 09/19/23. -Anticoagulation has been held. Dexamethasone has been started. -Stat brain MRI ordered -Radiation oncology consult placed Anemia, thrombocytosis: -WBC 11.4, hemoglobin 10.4 (stable in 10 range), MCV 96.0, platelets 1159. Creatinine 0.67, GFR greater than 90. Bilirubin 0.5, AST 55, ALT 37, ALP 37. -TSH 33.8. T3 1.0. Synthroid started -Thrombocytosis and anemia has been persistent. -Will obtain anemia labs to r/o nutritional deficiencies -Continue to monitor CBC Metastatic NSCLC -S/P 1st cycle of carbo/alimta/keytruda on 12/06/23, subsequent cycle has been delayed due to repeat hospitalizations -Treatment will be on hold until acute symptoms resolve. -Clinic f/u upon discharge. Pt will be assessed with treatment plan to follow Doctor attests: I performed a history and physical examination of this patient, developed impression and plan of care. Discussed with dictator. I agree with dictators note, documented as a scribe.
--- NOTE | 2023-12-29 17:12 | P.CNNES ---
History of Present Illness Consult date: 12/29/23 Requesting physician: Jacob Negrete Reason for Consult: seizure History of Present Illness: This is a 63-year-old gentleman with history of stage IV lung cancer (primary tumor vs mets from previous head and neck cancer in 2021) presented emergency department because of altered mental status. According to the patient he fell out of the chair but denies any loss of consciousness or any seizure-like activity. Per the medical record it seems that the patient's found him upstairs in bed unresponsive and she called EMS and seems that he was only able to aroused to sternal rub. Seems that he was reportedly unresponsive for several minutes. He did have urinary incontinence by EMS staff that is reported. States he had seizure in the past but that was due to his hypoglycemia from his insulin and he has type 1 diabetes. Otherwise he does not have any seizures that is not provoked. He denies of any headache, nausea vomiting. Denies of any focal weakness. He follows up with oncologist Dr. Mchugh as an outpatient. He is receiving chemotherapy. Denies being on any antiseizure medication at home. Some of the workup during this hospital visit consisted of: TSH is vitamin B12 is 1695 TSH is 33.80 but the free T41.02. POC glucose is in the 300's Platelet is 1000 185,000. CT of the head and cervical spine is reported as no acute fracture or dislocation in the cervical spine. There is 1.8 cm hemorrhagic metastasis focus right occipital lobe with local mass effect/surrounding vasogenic edema. I personally reviewed the CT and it was hard to appreciate hemorrhagic metastasis. I did appreciate the mass with edema. Patient had MRI of the brain and I felt the patient had a mass in the right parietal/occipital lobe with vasogenic edema and pending official report. Review of Systems Positive and negative as per HPI. 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 CT SCAN SHOWING MASS LT LUNG. HAVING SOB History of Any Multi-Drug Resistant Organisms: None Reported Past Surgical History: Orthopedic Surgery (Right ankle surgery) Additional Past Surgical History / Comment(s): eye surgery-BILAT GLAUCOMA. 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 AGO LT EYE Past Anesthesia/Blood Transfusion Reactions: No Reported Reaction Past Psychological History: No Psychological Hx Reported Smoking Status: Never smoker Past Alcohol Use History: None Reported Past Drug Use History: None Reported Additional Drug Use History / Comment(s): Remote history of marijuana use - Past Family History Mother Family Medical History: No Reported History Father Additional Family Medical History / Comment(s): EtOH abuse Medications and Allergies Home Medications Medication Instructions Recorded Confirmed Type Multivitamins, Thera [Multivitamin 1 tab PO DAILY 09/02/21 12/29/23 History (formulary)] Levothyroxine Sodium [Synthroid] 175 mcg PO DAILY 08/30/23 12/29/23 History Dorzolamide-Timol 2.23%/0.68% 1 drop BOTH EYES BID 12/16/23 12/29/23 History [Cosopt] HYDROcodone/APAP 10-325MG [[place] 1 tab PO Q6H PRN 12/16/23 12/29/23 History 10-325] Insulin Aspart [NovoLOG Flexpen] See Protocol SQ AC-TID 12/16/23 12/29/23 History Insulin Glargine,Hum.rec.anlog 16 units SQ HS 12/16/23 12/29/23 History [Lantus Solostar Pen] Nystatin 100,000 Unit/gm Powd 1 applic TOPICAL TID PRN 7 Days #1 12/21/23 12/29/23 Rx [Mycostatin Powder] each Apixaban [Eliquis Starter Pack See Taper PO DIRECTED 12/29/23 12/29/23 History (for VTE)] Allergies Allergy/AdvReac Type Severity Reaction Status Date / Time No Known Allergies Allergy Verified 12/29/23 08:44 Physical Examination - Vital Signs Vital Signs: Vital Signs Temp Pulse Resp BP Pulse Ox 12/29/23 14:23 84 16 108/77 99 12/29/23 13:00 83 18 122/88 99 12/29/23 10:02 80 20 131/96 99 12/29/23 05:31 81 18 121/85 100 12/29/23 03:00 79 15 108/68 100 12/29/23 01:25 79 16 127/89 100 12/28/23 23:10 90 20 117/86 99 12/28/23 21:53 98 16 131/82 96 12/28/23 21:51 97.5 F L 98 20 143/102 96 General: Lying in bed and is not in acute distress. Neuro: Patient is drowsy but is awake. Awake able to voice. He is oriented to self place and time. He is following simple commands. No aphasia. The pupils is the right pupil is about 3 mm the left is about 5 mm and the left and nonreactive to light and that is chronic from an old injury in which she had trauma according to the patient. Visual escalera are full to confrontation. Extraocular movements intact no nystagmus. EXTR no facial weakness. No dysarthria. Motor is somewhat limited but is left in all extremity above gravity and appears normal Cerebellar is normal [id number] Sensation is normal to touch Results - Laboratory Findings CBC and BMP: 12/29/23 04:24 12/29/23 14:36 Abnormal Lab Findings: Abnormal Labs 12/28/23 12/28/23 12/28/23 22:07 22:07 22:07 WBC 13.1 H RBC 3.55 L Hgb 10.7 L Hct 34.3 L RDW Plt Count 1185 H* Neutrophils # 11.2 H Lymphocytes # 0.5 L Sodium 127 L Potassium Chloride 93 L Creatinine Glucose 258 H POC Glucose (mg/dL) Plasma Lactic Acid Owen 2.5 H* Magnesium 1.5 L Iron TIBC Transferrin Ferritin AST 73 H Alkaline Phosphatase 394 H Total Protein Albumin 3.0 L Vitamin B12 TSH 33.800 H Free T3 pg/mL Urine Glucose (UA) 12/28/23 12/28/23 12/29/23 22:07 22:07 01:31 WBC RBC Hgb Hct RDW Plt Count Neutrophils # Lymphocytes # Sodium Potassium Chloride Creatinine Glucose POC Glucose (mg/dL) 263 H 265 H Plasma Lactic Acid Owen Magnesium Iron TIBC Transferrin Ferritin AST Alkaline Phosphatase Total Protein Albumin Vitamin B12 TSH Free T3 pg/mL Urine Glucose (UA) 2+ H 12/29/23 12/29/23 12/29/23 04:24 04:24 07:23 WBC 11.4 H RBC 3.48 L Hgb 10.4 L Hct 33.4 L RDW 15.6 H Plt Count 1159 H* Neutrophils # 10.6 H Lymphocytes # 0.5 L Sodium 126 L Potassium 5.3 H Chloride 94 L Creatinine 0.59 L Glucose 300 H POC Glucose (mg/dL) 300 H Plasma Lactic Acid Owen Magnesium Iron TIBC Transferrin Ferritin AST Alkaline Phosphatase 402 H Total Protein 5.9 L Albumin 2.7 L Vitamin B12 TSH Free T3 pg/mL 1.00 L Urine Glucose (UA) 12/29/23 12/29/23 12/29/23 10:22 10:22 12:15 WBC RBC Hgb Hct RDW Plt Count Neutrophils # Lymphocytes # Sodium Potassium 5.8 H Chloride Creatinine Glucose POC Glucose (mg/dL) 341 H Plasma Lactic Acid Owen Magnesium Iron 36 L TIBC 164 L Transferrin 117.0 L Ferritin 899.0 H AST Alkaline Phosphatase Total Protein Albumin Vitamin B12 1695.0 H TSH Free T3 pg/mL Urine Glucose (UA) 12/29/23 12/29/23 14:09 16:54 WBC RBC Hgb Hct RDW Plt Count Neutrophils # Lymphocytes # Sodium Potassium Chloride Creatinine Glucose POC Glucose (mg/dL) 362 H 407 H Plasma Lactic Acid Owen Magnesium Iron TIBC Transferrin Ferritin AST Alkaline Phosphatase Total Protein Albumin Vitamin B12 TSH Free T3 pg/mL Urine Glucose (UA) Assessment and Plan Assessment: This is a 63-year-old gentleman with history of stage IV lung cancer (primary tumor vs mets from previous head and neck cancer in 2021) presented emergency department because of altered mental status. Was found unresponsive was by his . MRI of the brain I thought has right parietal occipital mass with vasogenic edema and edema significant. Episode of unresponsiveness with brain mets causing new onset seizure Brain mets and I feel patient has right parietal occipital mass with a large vasogenic edema Altered mental status due to metabolic encephalopathy as well as due to brain mets Thrombocytosis Uncontrolled sugar Type 1 diabetes on insulin Plan: ED physician started the patient on Keppra 1000 mg every 12 hours and prior to this the patient was not on any antiseizure medication. Ordered a routine EEG but will not be completed until Monday. If the EEG is negative for any seizure or discharges consider going down to 750 mg every 12 hours since the patient was not on any seizure prior to this and this is a large dose since this is new onset Patient is on Decadron 10 mg every 6 hours. Oncology team is consulted Patient on seizure precautions seizure pads Pending official MRI brain report Will defer the rest of the medical management to primary and other specialist The plan discussed with the patient and primary attending Thank for the consultation. Time with Patient: Greater than 30
[2023-12-29 18:06] LABS: Glucose,Whole Blood 430 mg/dL (70-110)
[2023-12-29 18:54] LABS: Glucose,Whole Blood 452 mg/dL (70-110)
[2023-12-29 20:13] LABS: Glucose,Whole Blood 463 mg/dL (70-110)
[2023-12-29] MEDS: INSULIN DETEMIR (LEVEMIR) 100 UNIT/ML SYR SQ SCH (20:41)
[2023-12-30 00:45] LABS: Glucose,Whole Blood 293 mg/dL (70-110)
[2023-12-30 08:17] LABS: Glucose,Whole Blood 210 mg/dL (70-110)
--- NOTE | 2023-12-30 08:42 | P.PN ---
Subjective Progress Note Date: 12/30/23 63-year-old male with a PMH of stage IV lung mass (primary tumor versus metastasis from previous head and neck cancer from 2021, following with Dr. Roblero, receiving chemotherapy), diabetes mellitus type I, history of recent PE (on Eliquis), and hypothyroidism presents with symptoms of altered mental status. In the ED he underwent extensive evaluation. BP 143/102, HR 98, T 97.5F, RR 20, 96% on 3L NC. Initial lab work from the ER was significant for sodium 127, potassium 5.1, chloride 93, creatinine 0.67, glucose 258, magnesium 1.5, AST 73, ALT 38, alkaline phosphatase 394, troponin less than 0.012, BNP 436, serum alcohol <10. EKG showed heart rate of 97 bpm, no ST segment elevation or depression seen. CXR showed stable moderate-sized right + left pleural effusion, left lung opacity consistent with neoplasm and atelectatic change/scarring. Pelvic XR neg. CT head showed 1.8 cm hemorrhagic metastatic focus right occipital lobe with local mass effect/surrounding vasogenic edema. Patient started on Keppra and admitted for further workup and management. 12/28 Patient was seen and examined. CBC and CMP significant for WBC 11.4, RBC 3.48, Hg 10.4, Hct 33.4, Plt 1159, Na 126, K 5.3, Cl 94, Cr 0.59, glu 300, alk phos 402, alb 2.7. 12/29 Patient was seen and examined. Feeling cold. POC glucose 265-463 since admission. Started on Novolog 5 units TID. MRI shows right occipital lobe enhancing mass with surrounding vasogenic edema. Maintained on Keppra 1000 mg IV BID. Rad-Onc consult pending. CBC and BMP pending. General: non toxic, no distress, appears at stated age Derm: warm, dry Head: atraumatic, normocephalic, symmetric Eyes: EOMI, no lid lag, anicteric sclera Mouth: no lip lesion, mucus membranes moist Cardiovascular: S1S2 reg, no murmur Lungs: Clear to auscultation bilaterally, no rhonchi, no rales , no accessory muscle use Neuro: no focal neuro deficits Psych: Alert, oriented, appropriate affect Based on my assessment of this patient, this patient meets a high complexity level of care. Acute metabolic encephalopathy likely due to seizure from metastatic brain lesion: Keppra 1000 mg IV BID. Seizure and Fall precautions. Telemetry monitoring. Decadron 10 mg IV Q6H. MRI brain as above. EEG ordered. Neurology, Oncology and Rad Onc consult. SIRS: Likely due to above. No signs of active infection. BCx ordered. Monitor fever profile. Hyponatremia likely due to SIADH: Worsened with IVF. Stop IVF and start 1.5L fluid restriction. Diabetes mellitus with hyperglycemia: Worsened with steroids. Add Novolog 5 units TID. Levemir 16 units QHS. ISS ACHS with Accuchecks and Hypoglycemic precautions. Thrombocytosis: Likely related to malignancy. Normocytic anemia: Likely related to malignancy. Stage IV lung malignancy: Oncology consult. History of PE: Hold Lovenox and Eliquis for now given hemorrhagic focus seen on CT. Hypothyroidism: Synthroid 176 mcg PO QD. Resolved: HyperK CODE STATUS: FULL CODE. DVT Prophylaxis: SCD GI Prophylaxis: Designated medical POA if patient is not able to make medical decisions for themselves: I have reviewed the following integration consultant notes: Neurology, Oncology. I have reviewed the results of the following tests: MRI brain. POC glucose. I have ordered the following tests: CBC and BMP pending. EEG pending. I have discussed the care of this patient with the following independent historian: I have independently interpreted the following test below: Discussed with Dr. Joyner. Objective - Vital Signs Vital signs: Vital Signs Temp 97.5 F L 12/28/23 21:51 Pulse 64 12/30/23 06:00 Resp 16 12/30/23 04:00 BP 108/73 12/30/23 06:00 Pulse Ox 98 12/30/23 04:00 FiO2 - Labs CBC & Chem 7: 12/29/23 04:24 12/29/23 14:36 Labs: Abnormal Lab Results - Last 24 Hours (Table) 12/29/23 12/29/23 12/29/23 Range/Units 04:24 07:23 10:22 Potassium 5.8 H (3.5-5.1) mmol/L POC Glucose (mg/dL) 300 H (70-110) mg/dL Iron (65-175) UG/DL TIBC (228-460) UG/DL Transferrin (204.0-354.0) mg/dL Ferritin (22.0-322.0) ng/mL Vitamin B12 (200.0-944.0) pg/mL Free T3 pg/mL 1.00 L (2.30-4.20) pg/mL 12/29/23 12/29/23 12/29/23 Range/Units 10:22 12:15 14:09 Potassium (3.5-5.1) mmol/L POC Glucose (mg/dL) 341 H 362 H (70-110) mg/dL Iron 36 L (65-175) UG/DL TIBC 164 L (228-460) UG/DL Transferrin 117.0 L (204.0-354.0) mg/dL Ferritin 899.0 H (22.0-322.0) ng/mL Vitamin B12 1695.0 H (200.0-944.0) pg/mL Free T3 pg/mL (2.30-4.20) pg/mL 12/29/23 12/29/23 12/29/23 Range/Units 16:54 18:05 18:53 Potassium (3.5-5.1) mmol/L POC Glucose (mg/dL) 407 H 430 H 452 H (70-110) mg/dL Iron (65-175) UG/DL TIBC (228-460) UG/DL Transferrin (204.0-354.0) mg/dL Ferritin (22.0-322.0) ng/mL Vitamin B12 (200.0-944.0) pg/mL Free T3 pg/mL (2.30-4.20) pg/mL 12/29/23 12/30/23 Range/Units 20:11 00:43 Potassium (3.5-5.1) mmol/L POC Glucose (mg/dL) 463 H 293 H (70-110) mg/dL Iron (65-175) UG/DL TIBC (228-460) UG/DL Transferrin (204.0-354.0) mg/dL Ferritin (22.0-322.0) ng/mL Vitamin B12 (200.0-944.0) pg/mL Free T3 pg/mL (2.30-4.20) pg/mL
[2023-12-30] MEDS: INSULIN ASPART (NovoLOG) 100 UNIT/ML VIAL SQ SCH (08:43)
[2023-12-30 10:24] LABS: HCT 39.2 % (39.0-53.0); HGB 11.6 gm/dL (13.0-17.5); Hypochromasia Slight; MCH 29.1 pg (25.0-35.0); MCHC 29.5 g/dL (31.0-37.0); MCV 98.4 fL (80.0-100.0); Macrocytosis Slight; Mean Platelet Volume 6.8; RBC 3.99 m/uL (4.30-5.90); RDW 15.4 % (11.5-15.5); WBC 23.4 k/uL (3.8-10.6)
[2023-12-30 10:36] LABS: African American GFR (CKD) >90 (>60 ml/min/1.73 sqM); Anion Gap 8 mmol/L; Blood Urea Nitrogen 23 mg/dL (9-20); Calcium 9.6 mg/dL (8.4-10.2); Carbon Dioxide 30 mmol/L (22-30); Chloride 91 mmol/L (98-107); Glucose 303 mg/dL (74-99); Magnesium 1.7 mg/dL (1.6-2.3); Non-African American GFR(CKD) >90 (>60 ml/min/1.73 sqM); Potassium 5.7 mmol/L (3.5-5.1); Sodium 129 mmol/L (137-145)
[2023-12-30 10:56] LABS: Platelet Count 1285 k/uL (150-450)
[2023-12-30 11:48] LABS: Glucose,Whole Blood 303 mg/dL (70-110)
[2023-12-30] MEDS: SODIUM ZIRCONIUM CYCLOSILICATE 10 GM PACKET PO ONE ×2 (13:09→18:09)
[2023-12-30] MEDS: CALCIUM GLUCONATE IN NACL 1 GM in SALINE 1 100ML.BAG IVPB ONE (13:29)
[2023-12-30] MEDS: INSULIN REGULAR 100 UNIT/ML VIAL (IV) IV ONE (13:29)
--- NOTE | 2023-12-30 14:42 | P.CONS ---
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 He underwent concurrent chemoradiation finishing on 05/11/2021. He was subsequently discovered to have a large left upper lung lesion with mediastinal adenopathy. Biopsy performed on 08/31/2023 was consistent with squamous cell carcinoma, P16+. He initiated chemoimmunotherapy. Unfortunately, he was hospitalized in late November and found to have a malignant effusion. He has now been hospitalized again with syncope - he was found to have a right occipital brain metastases. The patient reports that he remembered getting up to go to the bathroom at home before he had an episode where he lost consciousness and fell. On 12/27 he was taken to the ER. His CT of the head/spine showed no fracture, but there was concern for brain metastases. Subsequent MRI of the brain from 12/29/23 showed a 2.6 x 2.2 x 1.4 cm right occipital lesion with surrounding edema. At this time the patient denies headaches or nausea. He has had difficulty with leg swelling. He feels his breathing is doing a bit better now that he has a Pleurx and is on home O2. He states he drains about 100-150 cc out of his pleurx every 3 days. Review of Systems Constitutional: Denies chills, Denies fever Ears, nose, mouth and throat: Denies headache Cardiovascular: Reports chest pain (left sided), Reports dyspnea on exertion Respiratory: Reports cough, Reports home oxygen, Denies hemoptysis Gastrointestinal: Denies abdominal pain, Denies BRBPR Integumentary: Denies rash Neurological: Reports as per HPI Past Medical History Past Medical History: Cancer, Diabetes Mellitus, Eye Disorder, Thyroid Disorder Additional Past Medical History / Comment(s): HX TONGUE AND NECK CANCER-CHEMO AND RADIATION-NO SURGERY. CT SCAN SHOWING MASS LT LUNG. HAVING SOB History of Any Multi-Drug Resistant Organisms: None Reported Past Surgical History: Orthopedic Surgery Additional Past Surgical History / Comment(s): eye surgery-BILAT GLAUCOMA. 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 AGO LT EYE Past Anesthesia/Blood Transfusion Reactions: No Reported Reaction Past Psychological History: No Psychological Hx Reported Smoking Status: Never smoker Past Alcohol Use History: None Reported Past Drug Use History: None Reported Additional Drug Use History / Comment(s): Remote history of marijuana use - Past Family History Mother Family Medical History: No Reported History Father Additional Family Medical History / Comment(s): EtOH abuse Medications and Allergies Home Medications Medication Instructions Recorded Confirmed Type Multivitamins, Thera [Multivitamin 1 tab PO DAILY 09/02/21 12/29/23 History (formulary)] Levothyroxine Sodium [Synthroid] 175 mcg PO DAILY 08/30/23 12/29/23 History Dorzolamide-Timol 2.23%/0.68% 1 drop BOTH EYES BID 12/16/23 12/29/23 History [Cosopt] HYDROcodone/APAP 10-325MG [[place] 1 tab PO Q6H PRN 12/16/23 12/29/23 History 10-325] Insulin Aspart [NovoLOG Flexpen] See Protocol SQ AC-TID 12/16/23 12/29/23 History Insulin Glargine,Hum.rec.anlog 16 units SQ HS 12/16/23 12/29/23 History [Lantus Solostar Pen] Nystatin 100,000 Unit/gm Powd 1 applic TOPICAL TID PRN 7 Days #1 12/21/23 12/29/23 Rx [Mycostatin Powder] each Apixaban [Eliquis Starter Pack See Taper PO DIRECTED 12/29/23 12/29/23 History (for VTE)] Allergies Allergy/AdvReac Type Severity Reaction Status Date / Time No Known Allergies Allergy Verified 12/29/23 08:44 Physical Exam Vitals: Vital Signs Temp Pulse Pulse Resp BP BP Pulse Ox 12/30/23 12:00 97.5 F L 76 20 117/76 90 L 12/30/23 08:00 60 18 121/85 95 12/30/23 06:00 64 108/73 12/30/23 04:00 64 16 112/87 98 12/30/23 02:00 63 14 123/87 98 12/30/23 00:40 69 18 132/89 99 12/30/23 00:00 68 15 132/89 12/29/23 22:00 79 18 119/81 99 12/29/23 18:55 83 20 113/73 99 12/29/23 18:06 81 20 107/67 96 Intake and Output 12/29/23 12/30/23 12/30/23 22:59 06:59 14:59 Intake Total 660 Balance 660 Intake: Oral 660 Other: # Voids 1 Weight 72.575 kg - Constitutional General appearance: no acute distress - EENT Eyes: EOMI, PERRLA ENT: hearing grossly normal - Neck Neck: no lymphadenopathy - Respiratory Respiratory: bilateral: CTA - Cardiovascular Rhythm: regular - Gastrointestinal General gastrointestinal: no distended, no tenderness - Integumentary Integumentary: no calor, no cyanotic - Neurologic Neurologic: CNII-XII intact - Musculoskeletal Musculoskeletal: strength equal bilaterally (however exam limited as patient was lying on his left side. ) - Psychiatric Psychiatric: A&O x's 3, appropriate affect Results CBC & Chem 7: 12/30/23 09:53 12/30/23 09:53 Labs: Abnormal Lab Results - Last 24 Hours (Table) 12/29/23 12/29/23 12/29/23 Range/Units 10:22 16:54 18:05 WBC (3.8-10.6) k/uL RBC (4.30-5.90) m/uL Hgb (13.0-17.5) gm/dL MCHC (31.0-37.0) g/dL Plt Count (150-450) k/uL Sodium (137-145) mmol/L Potassium (3.5-5.1) mmol/L Chloride (98-107) mmol/L BUN (9-20) mg/dL Creatinine (0.66-1.25) mg/dL Glucose (74-99) mg/dL POC Glucose (mg/dL) 407 H 430 H (70-110) mg/dL Iron 36 L (65-175) UG/DL TIBC 164 L (228-460) UG/DL Transferrin 117.0 L (204.0-354.0) mg/dL Ferritin 899.0 H (22.0-322.0) ng/mL Vitamin B12 1695.0 H (200.0-944.0) pg/mL 12/29/23 12/29/23 12/30/23 Range/Units 18:53 20:11 00:43 WBC (3.8-10.6) k/uL RBC (4.30-5.90) m/uL Hgb (13.0-17.5) gm/dL MCHC (31.0-37.0) g/dL Plt Count (150-450) k/uL Sodium (137-145) mmol/L Potassium (3.5-5.1) mmol/L Chloride (98-107) mmol/L BUN (9-20) mg/dL Creatinine (0.66-1.25) mg/dL Glucose (74-99) mg/dL POC Glucose (mg/dL) 452 H 463 H 293 H (70-110) mg/dL Iron (65-175) UG/DL TIBC (228-460) UG/DL Transferrin (204.0-354.0) mg/dL Ferritin (22.0-322.0) ng/mL Vitamin B12 (200.0-944.0) pg/mL 12/30/23 12/30/23 12/30/23 Range/Units 08:13 09:53 09:53 WBC 23.4 H (3.8-10.6) k/uL RBC 3.99 L (4.30-5.90) m/uL Hgb 11.6 L (13.0-17.5) gm/dL MCHC 29.5 L (31.0-37.0) g/dL Plt Count 1285 H* (150-450) k/uL Sodium 129 L (137-145) mmol/L Potassium 5.7 H (3.5-5.1) mmol/L Chloride 91 L (98-107) mmol/L BUN 23 H (9-20) mg/dL Creatinine 0.58 L (0.66-1.25) mg/dL Glucose 303 H (74-99) mg/dL POC Glucose (mg/dL) 210 H (70-110) mg/dL Iron (65-175) UG/DL TIBC (228-460) UG/DL Transferrin (204.0-354.0) mg/dL Ferritin (22.0-322.0) ng/mL Vitamin B12 (200.0-944.0) pg/mL 12/30/23 Range/Units 11:43 WBC (3.8-10.6) k/uL RBC (4.30-5.90) m/uL Hgb (13.0-17.5) gm/dL MCHC (31.0-37.0) g/dL Plt Count (150-450) k/uL Sodium (137-145) mmol/L Potassium (3.5-5.1) mmol/L Chloride (98-107) mmol/L BUN (9-20) mg/dL Creatinine (0.66-1.25) mg/dL Glucose (74-99) mg/dL POC Glucose (mg/dL) 303 H (70-110) mg/dL Iron (65-175) UG/DL TIBC (228-460) UG/DL Transferrin (204.0-354.0) mg/dL Ferritin (22.0-322.0) ng/mL Vitamin B12 (200.0-944.0) pg/mL Microbiology - Last 24 Hours (Table) 12/29/23 04:24 Blood Culture - Preliminary Blood CT Scan - head: report reviewed, image reviewed MRI - head: report reviewed, image reviewed Assessment and Plan Assessment: The patient is a 63-year-old male with a history of a stage II (cT3, cN1, M0), 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 He underwent concurrent chemoradiation finishing on 05/11/2021. He was subsequently discovered to have a large left upper lung lesion with mediastinal adenopathy. Biopsy performed on 08/31/2023 was consistent with squamous cell carcinoma, P16+. He initiated chemoimmunotherapy. Unfortunately, he was hospitalized in late November and found to have a malignant effusion. He has now been hospitalized again with syncope - he was found to have a right occipital brain metastases. Plan: 1. Brain metastasis: Single lesion noted in right occipital region. Agree with decadron, but would drop dose to 4 mg TID at this point. Also agree with protonix/Keppra. Unclear if this event was a seizure; EEG Monday. I discussed with the patient this could be managed with radiosurgery. Will re-evaluate patient Monday. 2. Metastatic squamous cell carcinoma: Unfortunately patient has only had 1 cycle of chemo-immunotherapy thus far. He has now had 2 recent hospitalizations delaying further treatment. Patient is hopeful to continue treatments as soon as medically cleared.
[2023-12-30 16:26] LABS: Glucose,Whole Blood 380 mg/dL (70-110)
[2023-12-30 20:17] LABS: Glucose,Whole Blood 328 mg/dL (70-110)
[2023-12-31 05:54] LABS: Glucose,Whole Blood 147 mg/dL (70-110)
[2023-12-31 11:22] LABS: African American GFR (CKD) >90 (>60 ml/min/1.73 sqM); Anion Gap 5 mmol/L; Blood Urea Nitrogen 25 mg/dL (9-20); Carbon Dioxide 33 mmol/L (22-30); Chloride 91 mmol/L (98-107); Glucose 224 mg/dL (74-99); Magnesium 1.6 mg/dL (1.6-2.3); Non-African American GFR(CKD) >90 (>60 ml/min/1.73 sqM); Potassium 4.9 mmol/L (3.5-5.1); Sodium 129 mmol/L (137-145)
[2023-12-31 11:23] LABS: HCT 31.2 % (39.0-53.0); MCH 29.7 pg (25.0-35.0); MCV 95.8 fL (80.0-100.0); Mean Platelet Volume 7.3; RBC 3.26 m/uL (4.30-5.90); RDW 15.9 % (11.5-15.5); WBC 16.1 k/uL (3.8-10.6)
[2023-12-31 11:23] LABS: Glucose,Whole Blood 342 mg/dL (70-110)
[2023-12-31 11:27] LABS: HGB 9.7 gm/dL (13.0-17.5); Platelet Count 1212 k/uL (150-450)
[2023-12-31] MEDS: DEXAMETHASONE SOD PHOSPHATE 4 MG/ML 1 ML VIAL IVP SCH (11:39)
--- NOTE | 2023-12-31 11:43 | P.PN ---
Subjective Progress Note Date: 12/31/23 63-year-old male with a PMH of stage IV lung mass (primary tumor versus metastasis from previous head and neck cancer from 2021, following with Dr. Roblero, receiving chemotherapy), diabetes mellitus type I, history of recent PE (on Eliquis), and hypothyroidism presents with symptoms of altered mental status. In the ED he underwent extensive evaluation. BP 143/102, HR 98, T 97.5F, RR 20, 96% on 3L NC. Initial lab work from the ER was significant for sodium 127, potassium 5.1, chloride 93, creatinine 0.67, glucose 258, magnesium 1.5, AST 73, ALT 38, alkaline phosphatase 394, troponin less than 0.012, BNP 436, serum alcohol <10. EKG showed heart rate of 97 bpm, no ST segment elevation or depression seen. CXR showed stable moderate-sized right + left pleural effusion, left lung opacity consistent with neoplasm and atelectatic change/scarring. Pelvic XR neg. CT head showed 1.8 cm hemorrhagic metastatic focus right occipital lobe with local mass effect/surrounding vasogenic edema. Patient started on Keppra and admitted for further workup and management. 12/28 Patient was seen and examined. CBC and CMP significant for WBC 11.4, RBC 3.48, Hg 10.4, Hct 33.4, Plt 1159, Na 126, K 5.3, Cl 94, Cr 0.59, glu 300, alk phos 402, alb 2.7. 12/29 Patient was seen and examined. Feeling cold. POC glucose 265-463 since admission. Started on Novolog 5 units TID. MRI shows right occipital lobe enhancing mass with surrounding vasogenic edema. Maintained on Keppra 1000 mg IV BID. Rad-Onc consult pending. CBC and BMP pending. 12/30 Patient was seen and examined. No complaints. CBC and BMP yesterday showed WBC 23.4, RBC 3.99, Hg 11.6, Plt 1285, Na 129, K 5.7, Cl 91, BUN 23, Cr 0.58, glu 303. Mag 1.7. He was given 10 units IV insulin, Lokelma 10g and Ca gluconate. Rad-Onc evaluated, decrease Decadron to 4 mg TID, EEG Monday, could be managed by radiosurgery. CBC and BMP this morning shows WBC 16.1, RBC 3.26, Hg 9.7, Hct 31.2, Plt 1212, Na 129, Cl 91, bicarb 33, BUN 25, Cr 0.61, glu 224. Mag 1.6. General: non toxic, no distress, appears at stated age Derm: warm, dry Head: atraumatic, normocephalic, symmetric Eyes: EOMI, no lid lag, anicteric sclera Mouth: no lip lesion, mucus membranes moist Cardiovascular: S1S2 reg, no murmur Lungs: Clear to auscultation bilaterally, no rhonchi, no rales , no accessory muscle use Neuro: no focal neuro deficits Psych: Alert, oriented, appropriate affect Based on my assessment of this patient, this patient meets a high complexity level of care. Acute metabolic encephalopathy likely due to seizure from metastatic brain lesion: Keppra 1000 mg IV BID. Seizure and Fall precautions. Telemetry monitoring. Decadron decreased from 10 to 4 mg IV Q6H. MRI brain as above. EEG ordered to be done on Monday. Neurology, Oncology and Rad Onc on board. Hyperkalemia: K 5.7 yesterday status post 10 g Lokelma x 2, 10 units IV insulin. SIRS: Likely due to above. No signs of active infection. BCx ordered. Monitor fever profile. Hyponatremia likely due to SIADH: Improving with fluid restriction. 1.5L fluid restriction. Diabetes mellitus with hyperglycemia: Worsened with steroids. Novolog 5 units TID. Levemir 16 units QHS. ISS ACHS with Accuchecks and Hypoglycemic pr ecautions. Thrombocytosis: Likely related to malignancy. Normocytic anemia: Likely related to malignancy. Acute drop today. No obvious signs of bleeding. Monitor. Stage IV lung malignancy: Oncology on board. History of PE: Hold Lovenox and Eliquis for now given hemorrhagic focus seen on CT. VTE BLEED score 4.5. High risk of bleeding with AC given malignancy, anemia and age. Will discuss with family regarding risks versus benefits. Hypothyroidism: Synthroid 176 mcg PO QD. CODE STATUS: FULL CODE. DVT Prophylaxis: SCD GI Prophylaxis: Designated medical POA if patient is not able to make medical decisions for themselves: I have reviewed the following microsoft dynamics consultant notes: Neurology, Rad-Onc Oncology. I have reviewed the results of the following tests: CBC, BMP, K. I have ordered the following tests: CBC and BMP in the AM. EEG pending. I have discussed the care of this patient with the following independent historian: I have independently interpreted the following test below: Discussed with Dr. Joyner. Objective - Vital Signs Vital signs: Vital Signs Temp 98.4 F 12/31/23 03:11 Pulse 80 12/31/23 03:11 Resp 20 12/31/23 03:11 BP 101/56 12/31/23 03:11 Pulse Ox 98 12/31/23 08:49 FiO2 Intake & Output 12/30/23 12/31/23 12/31/23 18:59 06:59 18:59 Intake Total 660 222 780 Balance 660 222 780 Weight 72.575 kg 76.2 kg Intake: Oral 660 222 780 Other: # Voids 1 2 - Labs CBC & Chem 7: 12/31/23 11:00 12/31/23 11:00 Labs: Abnormal Lab Results - Last 24 Hours (Table) 12/30/23 12/30/23 12/30/23 Range/Units 09:53 09:53 11:43 WBC 23.4 H (3.8-10.6) k/uL RBC 3.99 L (4.30-5.90) m/uL Hgb 11.6 L (13.0-17.5) gm/dL MCHC 29.5 L (31.0-37.0) g/dL Plt Count 1285 H* (150-450) k/uL Sodium 129 L (137-145) mmol/L Potassium 5.7 H (3.5-5.1) mmol/L Chloride 91 L (98-107) mmol/L BUN 23 H (9-20) mg/dL Creatinine 0.58 L (0.66-1.25) mg/dL Glucose 303 H (74-99) mg/dL POC Glucose (mg/dL) 303 H (70-110) mg/dL 12/30/23 12/30/23 12/31/23 Range/Units 16:22 20:15 05:52 WBC (3.8-10.6) k/uL RBC (4.30-5.90) m/uL Hgb (13.0-17.5) gm/dL MCHC (31.0-37.0) g/dL Plt Count (150-450) k/uL Sodium (137-145) mmol/L Potassium (3.5-5.1) mmol/L Chloride (98-107) mmol/L BUN (9-20) mg/dL Creatinine (0.66-1.25) mg/dL Glucose (74-99) mg/dL POC Glucose (mg/dL) 380 H 328 H 147 H (70-110) mg/dL Microbiology - Last 24 Hours (Table) 12/29/23 04:24 Blood Culture - Preliminary Blood
[2023-12-31] MEDS: FUROSEMIDE 10 MG/ML 4 ML VIAL IV SCH (12:02)
--- NOTE | 2023-12-31 12:21 | P.PN ---
Subjective Progress Note Date: 12/31/23 Pt reporting significant improvement in symptoms. Pt was ambulating in room at todays visit. A&Ox4, mentation at baseline. Denies acute neuro changes. C/o BLE edema, with weeping present. IV lasix has been started Objective - Vital Signs Vital signs: Vital Signs Temp 97.6 F 12/31/23 08:00 Pulse 80 12/31/23 08:00 Resp 18 12/31/23 08:00 BP 126/76 12/31/23 08:00 Pulse Ox 98 12/31/23 08:49 FiO2 Intake & Output 12/30/23 12/31/23 12/31/23 18:59 06:59 18:59 Intake Total 660 222 780 Balance 660 222 780 Weight 72.575 kg 76.2 kg Intake: Oral 660 222 780 Other: # Voids 1 2 - Constitutional General appearance: Present: average body habitus, no acute distress - EENT Eyes: Present: anicteric sclerae, EOMI ENT: Present: hearing grossly normal - Respiratory Details: breathing is even and unlabored - Cardiovascular Details: skin warm and dry, +3 pitting edema to feet, legs +2 with weeping noted - Integumentary Integumentary: Absent: cyanotic - Neurologic Neurologic Comment(s): no focal deficits - Musculoskeletal Musculoskeletal: Present: strength equal bilaterally - Psychiatric Psychiatric: Present: A&O x's 3 - Labs CBC & Chem 7: 12/31/23 11:00 12/31/23 11:00 Labs: Abnormal Lab Results - Last 24 Hours (Table) 12/30/23 12/30/23 12/30/23 Range/Units 09:53 09:53 11:43 WBC 23.4 H (3.8-10.6) k/uL RBC 3.99 L (4.30-5.90) m/uL Hgb 11.6 L (13.0-17.5) gm/dL MCHC 29.5 L (31.0-37.0) g/dL Plt Count 1285 H* (150-450) k/uL Sodium 129 L (137-145) mmol/L Potassium 5.7 H (3.5-5.1) mmol/L Chloride 91 L (98-107) mmol/L BUN 23 H (9-20) mg/dL Creatinine 0.58 L (0.66-1.25) mg/dL Glucose 303 H (74-99) mg/dL POC Glucose (mg/dL) 303 H (70-110) mg/dL 12/30/23 12/30/23 12/31/23 Range/Units 16:22 20:15 05:52 WBC (3.8-10.6) k/uL RBC (4.30-5.90) m/uL Hgb (13.0-17.5) gm/dL MCHC (31.0-37.0) g/dL Plt Count (150-450) k/uL Sodium (137-145) mmol/L Potassium (3.5-5.1) mmol/L Chloride (98-107) mmol/L BUN (9-20) mg/dL Creatinine (0.66-1.25) mg/dL Glucose (74-99) mg/dL POC Glucose (mg/dL) 380 H 328 H 147 H (70-110) mg/dL Microbiology - Last 24 Hours (Table) 12/29/23 04:24 Blood Culture - Preliminary Blood Assessment and Plan (1) Altered mental status Current Visit: Yes Status: Acute Priority: High Code(s): R41.82 - ALTERED MENTAL STATUS, UNSPECIFIED SNOMED Code(s): 947115006 (2) Metastasis to brain Current Visit: Yes Status: Acute Priority: High Code(s): C79.31 - SECONDARY MALIGNANT NEOPLASM OF BRAIN SNOMED Code(s): 99691627 (3) Syncope Current Visit: Yes Status: Acute Priority: High Code(s): R55 - SYNCOPE AND COLLAPSE SNOMED Code(s): 937926995 (4) Hyponatremia Current Visit: Yes Status: Acute Priority: Medium Code(s): E87.1 - HYPO- OSMOLALITY AND HYPONATREMIA SNOMED Code(s): 56296716 (5) Squamous cell lung cancer Current Visit: No Status: Acute Priority: High Code(s): C34.90 - MALIGNANT NEOPLASM OF UNSP PART OF UNSP BRONCHUS OR LUNG SNOMED Code(s): 275236911 Plan: Altered mental status, syncope: Presented for altered mental status and syncope -On admit CT brain and C-spine revealed no acute fracture or dislocation evident in the cervical spine. With a 1.8 cm hemorrhagic metastatic foci in the right occipital lobe with local mass effect/surrounding vasogenic edema, which was not noted on MRI brain obtained on 09/19/23. -Anticoagulation has been held. Continue Dexamethasone. Mentation improved -Stat brain MRI ordered. Scan showing right occipital lobe enhancing mass, measuring 26 x 22 x 14 mm with surrounding vasogenic edema -Neurology following, plan for EEG monday -Radiation oncology consult placed. Will reevaluate monday for possible radiosurgery Anemia, thrombocytosis: -Admit labs showing WBC 11.4, hemoglobin 10.4 (stable in 10 range), MCV 96.0, platelets 1159. Creatinine 0.67, GFR greater than 90. Bilirubin 0.5, AST 55, ALT 37, ALP 37. -TSH 33.8. T3 1.0. Synthroid started -Thrombocytosis and anemia has been persistent. -No nutritional deficiencies noted on anemia labs, consistent with anemia of i nflammation -Continue to monitor CBC. If thrombocytosis persists once acutely recovered, will further evaluate in outpt setting to r/o MPN Metastatic NSCLC -S/P 1st cycle of carbo/alimta/keytruda on 12/06/23, subsequent cycle has been delayed due to repeat hospitalizations -Treatment will be on hold until acute symptoms resolve. -Clinic f/u upon discharge. Pt will be assessed with treatment plan to follow
[2023-12-31 16:13] LABS: Glucose,Whole Blood 205 mg/dL (70-110)
[2023-12-31 19:43] LABS: Glucose,Whole Blood 228 mg/dL (70-110)
[2024-01-01 06:00] LABS: Glucose,Whole Blood 221 mg/dL (70-110)
[2024-01-01 06:52] LABS: HCT 33.2 % (39.0-53.0); HGB 10.1 gm/dL (13.0-17.5); MCH 29.3 pg (25.0-35.0); MCHC 30.3 g/dL (31.0-37.0); MCV 96.5 fL (80.0-100.0); Mean Platelet Volume 6.9; RBC 3.44 m/uL (4.30-5.90); RDW 15.7 % (11.5-15.5)
[2024-01-01 06:53] LABS: Platelet Count 1157 k/uL (150-450)
[2024-01-01 07:15] LABS: African American GFR (CKD) >90 (>60 ml/min/1.73 sqM); Anion Gap 3 mmol/L; Blood Urea Nitrogen 26 mg/dL (9-20); Carbon Dioxide 36 mmol/L (22-30); Chloride 89 mmol/L (98-107); Glucose 213 mg/dL (74-99); Non-African American GFR(CKD) >90 (>60 ml/min/1.73 sqM); Potassium 4.5 mmol/L (3.5-5.1); Sodium 128 mmol/L (137-145)
--- NOTE | 2024-01-01 08:33 | EEG ---
ELECTROENCEPHALOGRAM REPORT CLINICAL HISTORY: This is a 63-year-old gentleman with an episode of unresponsiveness. The video EEG is obtained to evaluate for seizure epileptiform activity. RELEVANT MEDICATION: Keppra. EEG TYPE: This is a routine 21 channel EEG with video using the 10/20 electrode placement system. DESCRIPTION: Wakefulness and drowsiness are obtained. During awake state, the background consists of [id number] voltage of 7-8 Hz activity. There was no physiological stage 2 sleep architecture. There is no focal slowing. INTERICTAL AND ICTAL: There is sharply controlled activity over the left frontal lead, but there is no evolution. There is no appreciable epileptiform discharge or seizure on the EEG. ACTIVATION PROCEDURE: Photic stimulation did not evoke a posterior driving response. There is no abnormality during the photic stimulation. Hyperventilation is not performed. CLINICAL INTERPRETATION: This is an abnormal routine EEG. The background slowing is suggestive of mild encephalopathy. There is sharply contoured activity over the left frontal, which can increase risk of cortical irritability. Otherwise, no seizure or clear epileptiform discharges noted. Clinical correlation is recommended. MMODL / IJN: [id number] /
[2024-01-01 11:29] LABS: Glucose,Whole Blood 315 mg/dL (70-110)
[2024-01-01] MEDS: ENOXAPARIN 40 MG/0.4 ML SYRINGE SQ SCH (12:11)
--- NOTE | 2024-01-01 13:16 | P.PN ---
Subjective Progress Note Date: 01/01/24 63-year-old male with a PMH of stage IV lung mass (primary tumor versus metastasis from previous head and neck cancer from 2021, following with Dr. Roblero, receiving chemotherapy), diabetes mellitus type I, history of recent PE (on Eliquis), and hypothyroidism presents with symptoms of altered mental status. In the ED he underwent extensive evaluation. BP 143/102, HR 98, T 97.5F, RR 20, 96% on 3L NC. Initial lab work from the ER was significant for sodium 127, potassium 5.1, chloride 93, creatinine 0.67, glucose 258, magnesium 1.5, AST 73, ALT 38, alkaline phosphatase 394, troponin less than 0.012, BNP 436, serum alcohol <10. EKG showed heart rate of 97 bpm, no ST segment elevation or depression seen. CXR showed stable moderate-sized right + left pleural effusion, left lung opacity consistent with neoplasm and atelectatic change/scarring. Pelvic XR neg. CT head showed 1.8 cm hemorrhagic metastatic focus right occipital lobe with local mass effect/surrounding vasogenic edema. Patient started on Keppra and Decadron and admitted for further workup and management. Oncology, Rad Onc and Neurology consulted. EEG showed mild encephalopathy, sharply contoured activity L frontal lobe with no epileptiform discharges. Rad Onc to evaluate patient for possible radiosurgery. He did have a K of 5.7 on 12/30 which was managed with IV insulin and 10g Lokelma x 2. 12/31 Patient was seen and examined. No complaints. CBC and BMP shows WBC 14, RBC 3.44, Hg 10.1, Hct 33.2, Plt 1157, Na 128, Cl 89, bicarb 36, BUN 26, glu 205. Currently on Keppra 750 mg PO BID and Decadron 4 mg IV Q6H. General: non toxic, no distress, appears at stated age Derm: warm, dry Head: atraumatic, normocephalic, symmetric Eyes: EOMI, no lid lag, anicteric sclera Mouth: no lip lesion, mucus membranes moist Cardiovascular: S1S2 reg, no murmur Lungs: Clear to auscultation bilaterally, no rhonchi, no rales , no accessory muscle use Neuro: no focal neuro deficits Psych: Alert, oriented, appropriate affect Based on my assessment of this patient, this patient meets a high complexity level of care. Acute metabolic encephalopathy likely due to seizure from metastatic brain lesion: Keppra 750 mg PO BID. Seizure and Fall precautions. Telemetry monitoring. Decadron 4 mg IV Q6H. MRI brain and EEG as above. Rad Onc to e valuate patient for possible radiosurgery. Neurology, Oncology and Rad Onc on board. SIRS: Likely due to above. No signs of active infection. BCx negative. Monitor fever profile. Hyponatremia likely due to SIADH: Improving with fluid restriction. 1.5L fluid restriction. Diabetes mellitus with hyperglycemia: POC glucose 147-302 over the past 24H. Worsened with steroids. Novolog 5 units TID. Levemir 16 units QHS. ISS ACHS with Accuchecks and Hypoglycemic precautions. Thrombocytosis: Likely related to malignancy. Normocytic anemia: Likely related to malignancy. No obvious signs of bleeding. Monitor. Stage IV lung malignancy: Oncology on board. History of PE: VTE BLEED score 4.5. High risk of bleeding with AC given malignancy, anemia and age. Will discuss with family regarding risks versus be nefits. Hypothyroidism: Synthroid 176 mcg PO QD. Resolved: HyperK CODE STATUS: NO CODE but OK with intubation (discussed with patient on 12/30). DVT Prophylaxis: Lovenox SQ GI Prophylaxis: Designated medical POA if patient is not able to make medical decisions for themselves: I have reviewed the following senior sustainability consultant notes: Neurology, Rad-Onc, Oncology. I have reviewed the results of the following tests: CBC, BMP, EEG. I have ordered the following tests: I have discussed the care of this patient with the following independent historian: I have independently interpreted the following test below: Objective - Vital Signs Vital signs: Vital Signs Temp 97.6 F 01/01/24 04:45 Pulse 69 01/01/24 04:45 Resp 16 01/01/24 04:45 BP 118/74 01/01/24 04:45 Pulse Ox 97 01/01/24 04:45 FiO2 Intake & Output 12/31/23 01/01/24 01/01/24 18:59 06:59 18:59 Intake Total 1680 232 Output Total 1800 2550 Balance -120 -2318 Weight 73.8 kg Intake: IV 10 Invasive Line 1 10 Oral 1680 222 Output: Urine 1800 2550 Other: # Voids 2 - Labs CBC & Chem 7: 01/01/24 06:36 01/01/24 06:36 Labs: Abnormal Lab Results - Last 24 Hours (Table) 12/31/23 12/31/23 12/31/23 Range/Units 11:00 11:00 11:19 WBC 16.1 H (3.8-10.6) k/uL RBC 3.26 L (4.30-5.90) m/uL Hgb 9.7 L D (13.0-17.5) gm/dL Hct 31.2 L (39.0-53.0) % MCHC (31.0-37.0) g/dL RDW 15.9 H (11.5-15.5) % Plt Count 1212 H* (150-450) k/uL Sodium 129 L (137-145) mmol/L Chloride 91 L (98-107) mmol/L Carbon Dioxide 33 H (22-30) mmol/L BUN 25 H (9-20) mg/dL Creatinine 0.61 L (0.66-1.25) mg/dL Glucose 224 H (74-99) mg/dL POC Glucose (mg/dL) 342 H (70-110) mg/dL 12/31/23 12/31/23 01/01/24 Range/Units 16:04 19:41 05:58 WBC (3.8-10.6) k/uL RBC (4.30-5.90) m/uL Hgb (13.0-17.5) gm/dL Hct (39.0-53.0) % MCHC (31.0-37.0) g/dL RDW (11.5-15.5) % Plt Count (150-450) k/uL Sodium (137-145) mmol/L Chloride (98-107) mmol/L Carbon Dioxide (22-30) mmol/L BUN (9-20) mg/dL Creatinine (0.66-1.25) mg/dL Glucose (74-99) mg/dL POC Glucose (mg/dL) 205 H 228 H 221 H (70-110) mg/dL 01/01/24 01/01/24 Range/Units 06:36 06:36 WBC 14.0 H (3.8-10.6) k/uL RBC 3.44 L (4.30-5.90) m/uL Hgb 10.1 L (13.0-17.5) gm/dL Hct 33.2 L (39.0-53.0) % MCHC 30.3 L (31.0-37.0) g/dL RDW 15.7 H (11.5-15.5) % Plt Count 1157 H* (150-450) k/uL Sodium 128 L (137-145) mmol/L Chloride 89 L (98-107) mmol/L Carbon Dioxide 36 H (22-30) mmol/L BUN 26 H (9-20) mg/dL Creatinine (0.66-1.25) mg/dL Glucose 213 H (74-99) mg/dL POC Glucose (mg/dL) (70-110) mg/dL Microbiology - Last 24 Hours (Table) 12/29/23 04:24 Blood Culture - Preliminary Blood
[2024-01-01 16:32] LABS: Glucose,Whole Blood 259 mg/dL (70-110)
--- NOTE | 2024-01-01 19:00 | P.PN ---
Subjective Progress Note Date: 01/01/24 Principal diagnosis: seizure, NSCLC In f/u today pt is denying any specific neurological symptoms-other then seizure-he denies any seizure activity today. No SANTIZO, difficulty swallowing, SOB, cough, acute changes in bowel or bladder. The swelling in his legs is persistent, he reports some weeping. Objective - Vital Signs Vital signs: Vital Signs Temp 98.5 F 01/01/24 12:15 Pulse 82 01/01/24 16:00 Resp 16 01/01/24 16:00 BP 121/82 01/01/24 16:00 Pulse Ox 98 01/01/24 16:00 FiO2 Intake & Output 12/31/23 01/01/24 01/01/24 18:59 06:59 18:59 Intake Total 1680 232 914 Output Total 1800 2550 Balance -120 -2318 914 Weight 73.8 kg Intake: IV 10 Invasive Line 1 10 Oral 1680 222 914 Output: Urine 1800 2550 Other: # Voids 2 - Constitutional General appearance: Present: cooperative, no acute distress, thin - EENT Eyes: Present: anicteric sclerae ENT: Present: hearing grossly normal - Respiratory Respiratory: bilateral: CTA - Cardiovascular Rhythm: regular Heart sounds: normal: S1, S2 - Peripheral edema leg Peripheral Edema: bilateral: 1+, Pitting foot Peripheral Edema: bilateral: 3+ - Gastrointestinal General gastrointestinal: Present: soft - Neurologic Neurologic: Present: CNII-XII intact (grossly) - Musculoskeletal Musculoskeletal: Present: strength equal bilaterally - Psychiatric Psychiatric: Present: A&O x's 3, appropriate affect, intact judgment & insight - Labs CBC & Chem 7: 01/01/24 06:36 01/01/24 06:36 Labs: Abnormal Lab Results - Last 24 Hours (Table) 12/31/23 01/01/24 01/01/24 Range/Units 19:41 05:58 06:36 WBC 14.0 H (3.8-10.6) k/uL RBC 3.44 L (4.30-5.90) m/uL Hgb 10.1 L (13.0-17.5) gm/dL Hct 33.2 L (39.0-53.0) % MCHC 30.3 L (31.0-37.0) g/dL RDW 15.7 H (11.5-15.5) % Plt Count 1157 H* (150-450) k/uL Sodium (137-145) mmol/L Chloride (98-107) mmol/L Carbon Dioxide (22-30) mmol/L BUN (9-20) mg/dL Glucose (74-99) mg/dL POC Glucose (mg/dL) 228 H 221 H (70-110) mg/dL 01/01/24 01/01/24 01/01/24 Range/Units 06:36 11:26 16:18 WBC (3.8-10.6) k/uL RBC (4.30-5.90) m/uL Hgb (13.0-17.5) gm/dL Hct (39.0-53.0) % MCHC (31.0-37.0) g/dL RDW (11.5-15.5) % Plt Count (150-450) k/uL Sodium 128 L (137-145) mmol/L Chloride 89 L (98-107) mmol/L Carbon Dioxide 36 H (22-30) mmol/L BUN 26 H (9-20) mg/dL Glucose 213 H (74-99) mg/dL POC Glucose (mg/dL) 315 H 259 H (70-110) mg/dL Microbiology - Last 24 Hours (Table) 12/29/23 04:24 Blood Culture - Preliminary Blood Assessment and Plan (1) Altered mental status Current Visit: Yes Status: Acute Priority: High Code(s): R41.82 - ALTERED MENTAL STATUS, UNSPECIFIED SNOMED Code(s): 046001113 (2) Metastasis to brain Current Visit: Yes Status: Acute Priority: High Code(s): C79.31 - SECONDARY MALIGNANT NEOPLASM OF BRAIN SNOMED Code(s): 86900804 (3) Pulmonary embolism Current Visit: Yes Status: Acute Priority: High Code(s): I26.99 - OTHER PULMONARY EMBOLISM WITHOUT ACUTE COR PULMONALE SNOMED Code(s): 78737897 Plan: Altered mental status, seizure, brain metastasis -1.8 cm hemorrhagic metastatic foci in the right occipital lobe with local mass effect/surrounding vasogenic edema, which was not noted on MRI brain obtained on 09/19/23. -Anticoagulation has been held due to concerns for hemorrhagic component in brain met.Spoke with Radiation Oncologist about timing from simulation to start of treatment. It is felt that SRS would start early next week. Pt will need IVC filter placed as he currently is not a candidate for anticoagulation. Did speak with Vascular SUSPECT ARTIST SUPERVISOR, pt needs retrievable IVC filter placed until brain met can be adequately treated. Vascular consult placed, they will see pt in AM. Reviewed all the above with pt. He verbalizes understanding and is agreeable to IVC filter. -Dexamethasone started for symptoms, dose reduced. Mentation improved, no recent reported seizure. -Neurology following, pending their recommendations Anemia, thrombocytosis -Mild anemia, previously worked up, consistent with inflammation. No supplement needed at this time. Hgb 10.1 today. -TSH 33.8. T3 1.0. Synthroid started -Thrombocytosis not new finding, persistent. Possible further work up outpt to r ule out MPN Metastatic non small cell lung adenocarcinoma -S/P 1st cycle of carbo/alimta/keytruda on 12/06/23, subsequent cycle has been delayed due to repeat hospitalizations -Treatment will be on hold until pt recovers from acute situation and has had symptomatic brain mets treated -Clinic f/u after SRS to asses when felt recovered enough to resume treatment. He will need to be tapered to less then 4mg of dex to resume keytruda. -Pt has had only 1 cycle of treatment, this met to the brain is not felt to represent failure of treatment as he has only had 1 cycle. Plan will be to continue current treatment, at least for 3-4 cycles
[2024-01-01 19:56] LABS: Glucose,Whole Blood 363 mg/dL (70-110)
[2024-01-02 06:10] LABS: Glucose,Whole Blood 297 mg/dL (70-110)
--- NOTE | 2024-01-02 08:33 | P.PN ---
Subjective Progress Note Date: 01/01/24 Principal diagnosis: Altered mentation, new brain metastases Pt doing better. Ambulating around the room today. No headaches or nausea; no seizure like activity. Objective - Vital Signs Vital signs: Vital Signs Temp 97.4 F L 01/02/24 07:29 Pulse 68 01/02/24 07:29 Resp 18 01/02/24 07:29 BP 123/75 01/02/24 07:29 Pulse Ox 98 01/02/24 07:29 FiO2 Intake & Output 01/01/24 01/02/24 01/02/24 18:59 06:59 18:59 Intake Total 914 130 Balance 914 130 Weight 73.8 kg Intake: IV 10 Invasive Line 2 10 Oral 914 120 Other: # Voids 1 - Constitutional General appearance: Present: no acute distress - EENT Eyes: Present: EOMI, PERRLA - Neck Neck: Absent: lymphadenopathy - Respiratory Respiratory: bilateral: CTA - Cardiovascular Rhythm: regular - Gastrointestinal General gastrointestinal: Absent: distended, tenderness - Integumentary Integumentary: Absent: flushed - Neurologic Neurologic: Present: CNII-XII intact - Labs CBC & Chem 7: 01/01/24 06:36 01/01/24 06:36 Labs: Abnormal Lab Results - Last 24 Hours (Table) 01/01/24 01/01/24 01/01/24 Range/Units 11:26 16:18 19:55 POC Glucose (mg/dL) 315 H 259 H 363 H (70-110) mg/dL 01/02/24 Range/Units 06:06 POC Glucose (mg/dL) 297 H (70-110) mg/dL Microbiology - Last 24 Hours (Table) 12/29/23 04:24 Blood Culture - Preliminary Blood Assessment and Plan Assessment: The patient is a 63-year-old male with a history of a stage II (cT3, cN1, M0), 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 He underwent concurrent chemoradiation finishing on 05/11/2021. He was subsequently discovered to have a large left upper lung lesion with mediastinal adenopathy. Biopsy performed on 08/31/2023 was consistent with squamous cell carcinoma, P16+. He has started chemo- immunotherapy. He was hospitalized due to syncope and found to have a new brain metastasis. Plan: 1. Single brain metastasis: Continue decadron/PPI. EEG negative. Discussed that patient would be a candidate for radiosurgery. The lesion did appear hemorrhagic on CT. Therefore, he will have an IVC filter placed (likely tomorrow) due to his finding of PE. Will likely only need 3 radiation treatments. If patient is doing well after his filter placement, may bring him down for planning CT on Monday. Time with Patient: Less than 30
[2024-01-02 08:37] LABS: Methylmalonic Acid 0.2 umol/L (<0.40)
[2024-01-02 09:08] LABS: INR 1.1 (<1.2); Prothrombin Time 11.5 sec (10.0-12.5)
--- NOTE | 2024-01-02 09:55 | P.GSCN ---
History of Present Illness Consult date: 01/02/24 Reason for Consult: Need for IVC filter Requesting physician: Meche Sanchez History of present illness: This is a pleasant 63-year-old male with a past medical history of metastatic stage IV lung cancer, history of head and neck cancer, diabetes mellitus history of recent PE on Eliquis and hypothyroidism who had presented to the hospital with complaints of altered mental status changes. Patient was recently diagnos ed with pulmonary embolism and was started on Eliquis. As part of his workup he had a CT of the brain with findings of a 1.8 cm hemorrhagic metastatic focus of the right occipital lobe with local mass effect/surrounding vasogenic edema. Due to this anticoagulation was held and vascular surgery was asked to place a IVC filter. Patient is currently alert and oriented. He is without complaints of chest pain, shortness of breath or abdominal pain or leg pain at this time. Review of Systems A 14 point review systems was completed all pertinent positives and negatives as stated in the HPI. 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 CT SCAN SHOWING MASS LT LUNG. HAVING SOB History of Any Multi-Drug Resistant Organisms: None Reported Past Surgical History: Orthopedic Surgery Additional Past Surgical History / Comment(s): eye surgery-BILAT GLAUCOMA. 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 AGO LT EYE Past Anesthesia/Blood Transfusion Reactions: No Reported Reaction Past Psychological History: No Psychological Hx Reported Smoking Status: Never smoker Past Alcohol Use History: None Reported Past Drug Use History: None Reported Additional Drug Use History / Comment(s): Remote history of marijuana use - Past Family History Mother Family Medical History: No Reported History Father Additional Family Medical History / Comment(s): EtOH abuse Medications and Allergies Home Medications Medication Instructions Recorded Confirmed Type Multivitamins, Thera [Multivitamin 1 tab PO DAILY 09/02/21 12/29/23 History (formulary)] Levothyroxine Sodium [Synthroid] 175 mcg PO DAILY 08/30/23 12/29/23 History Dorzolamide-Timol 2.23%/0.68% 1 drop BOTH EYES BID 12/16/23 12/29/23 History [Cosopt] HYDROcodone/APAP 10-325MG [[place] 1 tab PO Q6H PRN 12/16/23 12/29/23 History 10-325] Insulin Aspart [NovoLOG Flexpen] See Protocol SQ AC-TID 12/16/23 12/29/23 History Insulin Glargine,Hum.rec.anlog 16 units SQ HS 12/16/23 12/29/23 History [Lantus Solostar Pen] Nystatin 100,000 Unit/gm Powd 1 applic TOPICAL TID PRN 7 Days #1 12/21/23 12/29/23 Rx [Mycostatin Powder] each Apixaban [Eliquis Starter Pack See Taper PO DIRECTED 12/29/23 12/29/23 History (for VTE)] Allergies Allergy/AdvReac Type Severity Reaction Status Date / Time No Known Allergies Allergy Verified 12/29/23 08:44 Surgical - Exam Vital Signs Temp Pulse Resp BP Pulse Ox 97.5 F L 98 20 143/102 96 12/28/23 21:51 12/28/23 21:51 12/28/23 21:51 12/28/23 21:51 12/28/23 21:51 General appearance: The patient is alert, oriented, appears in no acute distress. HET: Head is normocephalic and atraumatic. Neck: Supple. Heart: Regular. Lungs: Equal expansion, normal respiratory effort. Abdomen: Soft, nontender, nondistended. Extremities: Normal skin color and turgor. Neurological: Alert and oriented. Results - Labs 01/01/24 06:36 01/01/24 06:36 Abnormal Lab Results - Last 24 Hours (Table) 01/01/24 01/01/24 01/01/24 Range/Units 11:26 16:18 19:55 POC Glucose (mg/dL) 315 H 259 H 363 H (70-110) mg/dL 01/02/24 Range/Units 06:06 POC Glucose (mg/dL) 297 H (70-110) mg/dL Microbiology - Last 24 Hours (Table) 12/29/23 04:24 Blood Culture - Preliminary Blood Assessment and Plan Assessment: 1. Pulmonary embolism unable to be anticoagulated secondary to hemorrhagic brain mass 2. Metastatic stage IV lung cancer Plan: 1. Keep patient n.p.o. 2. Hold Lovenox 3. Plan for IVC filter placement this afternoon Thank you for this consultation. The impression and plan of care has been dictated as directed. Dr. Bustamante I performed a history and examination of this patient, discussed the same with the dictator. I agree with the dictator's note ,documented as a scribe. Any additional findings or plans will be noted.
[2024-01-02] MEDS: fentaNYL (PF) 50 MCG/1 ML VIAL IVP ONE (12:10)
[2024-01-02] MEDS: MIDAZOLAM 2 MG/2 ML VIAL IVP ONE (12:10)
[2024-01-02] MEDS: LIDOCAINE 1% INJ 10MG/ML (20 ML MDV) SQ ONE (12:12)
[2024-01-02] MEDS: SODIUM CHLORIDE 0.9% 250 ML IV ONE (12:13)
--- NOTE | 2024-01-02 12:15 | P.PN ---
Subjective Progress Note Date: 01/02/24 Hospital course 63-year-old male with a PMH of stage IV lung mass (primary tumor versus metastasis from previous head and neck cancer from 2021, following with Dr. Roblero, receiving chemotherapy), diabetes mellitus type I, history of recent PE (on Eliquis), and hypothyroidism presents with symptoms of altered mental status. In the ED he underwent extensive evaluation. BP 143/102, HR 98, T 97.5F, RR 20, 96% on 3L NC. Initial lab work from the ER was significant for sodium 127, potassium 5.1, chloride 93, creatinine 0.67, glucose 258, magnesium 1.5, AST 73, ALT 38, alkaline phosphatase 394, troponin less than 0.012, BNP 436, serum alcohol <10. EKG showed heart rate of 97 bpm, no ST segment elevation or depression seen. CXR showed stable moderate-sized right + left pleural effusion, left lung opacity consistent with neoplasm and atelectatic change/scarring. Pelvic XR neg. CT head showed 1.8 cm hemorrhagic metastatic focus right occipital lobe with local mass effect/surrounding vasogenic edema. Patient's brain MRI showed right occipital lobe enhancing mass with surrounding vasogenic edema and no evidence of acute or subacute CVA. Patient was started on Keppra and Decadron. Patient's Eliquis was discontinued due to the brain mets as well as possible hemorrhagic meta static focus seen on CT scan. Vascular surgery was consulted for IVC filter. Oncology was consulted who recommended radiation oncology. Patient seen by radiation oncology who said patient would be a candidate for radiation treatment. Patient seen this morning. He denies any headache. He denies any shortness of breath. No acute issues overnight. Physical exam General examination - Alert and Oriented 3 in NAD, appears chronically debilitated Heart - + S1S2 no murmurs Lungs - Clear to auscultation Abdomen soft NT ND +ve BS Extremities - No edema CRYOGENIC TRANSPORT DRIVER - Moving all 4 extremities spontaneously Psych - Calm and cooperative Assessment and plan Acute metabolic encephalopathy likely due to seizure from metastatic brain lesion I reviewed the note from radiation oncology who said patient would be a candidate for radiosurgery. Plan is for CT tomorrow We will decrease Decadron to 4 mg 3 times daily as recommended by radiation oncology Continue with Keppra 750 mg p.o. twice daily Patient's mental status has improved. He is denying any headache. Hyponatremia likely due to SIADH Continue fluid restriction 1.5 L Diabetes mellitus Continue with NovoLog 5 units 3 times daily and Levemir 16 units at bedtime and sliding scale insulin Thrombocytosis Likely reactive Stable Normocytic anemia Likely due to malignancy Stable Stage IV lung cancer Per oncology his treatments will be on hold until his radiation completed History of PE CT scan showed possible hemorrhagic metastatic lesion and also since patient has pain meds he will not be able to use anticoagulation. Vascular surgery to place IVC filter today. Eliquis discontinued Hypothyroidism Continue Synthroid 176 mcg p.o. daily Hyperkalemia Resolved DVT prophylaxis: No anticoagulation in the setting of hemorrhagic metastatic lesion. Will plan to discharge the patient tomorrow after his CT scan Objective - Vital Signs Vital signs: Vital Signs Temp 97.4 F L 01/02/24 07:29 Pulse 68 01/02/24 07:29 Resp 18 01/02/24 07:29 BP 123/75 01/02/24 07:29 Pulse Ox 93 L 01/02/24 09:00 FiO2 Intake & Output 01/01/24 01/02/24 01/02/24 18:59 06:59 18:59 Intake Total 914 130 Balance 914 130 Weight 73.8 kg Intake: IV 10 Invasive Line 2 10 Oral 914 120 Other: # Voids 1 # Bowel Movements 0 - Labs CBC & Chem 7: 01/01/24 06:36 01/01/24 06:36 Labs: Abnormal Lab Results - Last 24 Hours (Table) 01/01/24 01/01/24 01/02/24 Range/Units 16:18 19:55 06:06 POC Glucose (mg/dL) 259 H 363 H 297 H (70-110) mg/dL Microbiology - Last 24 Hours (Table) 12/29/23 04:24 Blood Culture - Preliminary Blood
[2024-01-02] MEDS: IOPAMIDOL-250 100ML BTL INTRAARTER ONE (12:22)
--- NOTE | 2024-01-02 12:30 | P.OP ---
Date of Procedure: 01/02/24 Preoperative Diagnosis: Metastatic lung CA Pulmonary embolism unable to take oral anticoagulation Postoperative Diagnosis: Same Procedure(s) Performed: Ultrasound-guided right common femoral vein access IVC venogram Placement of IVC filter Anesthesia: local (Conscious sedation x 13 minutes) Surgeon: Jamey Bustamante Estimated Blood Loss (ml): 5 Pathology: none sent Condition: stable Disposition: floor Description of Procedure: After written and informed consent was obtained the patient and all risks benefits and complications were described the patient was brought to the Funds Transfer Clerk and laid in a supine position. The area of the groins were prepped and draped in usual sterile fashion. Utilizing ultrasound the right femoral vein was located and shown to be patent and compressible without any visible thrombus. Utilizing ultrasound and Seldinger technique the vein was accessed and a 035 guidewire was placed followed by a 6-Khmer sheath. Catheter was then placed within the inferior vena cava and IVC venogram was obtained demonstrating visualization of the renal veins. A Any filter was then chosen to be placed and the deployment sheath was guided over the guidewire after removal of the 6- Khmer sheath. The filter was then placed at the L2-L3 vertebrae level under the renal veins and deployed in normal fashion. Once deployed final venogram was obtained demonstrating good placement of the filter without any tilting. All guidewires and catheters were then removed and pressure was held for hemostasis. The area was cleansed and dressings were placed. Patient tolerated procedure well was sent back to the room for recovery.
--- NOTE | 2024-01-02 13:23 | IR ---
EXAMINATION TYPE: IR IVC filter placement DATE OF EXAM: 01/02/2024 12:45 PM COMPARISON: Pre Operative Images if available both CT/MRI or plain film CLINICAL INDICATION: Male, 63 years old with history of META CA; TECHNIQUE: IR IVC filter placement, multiple fluoroscopic images provided for procedure. Total fluoroscopy time: 1.3 minutes Total submitted images to PACS: 160 DAP: 214.67 mGym2 Gycm2 uGym2 cGycm2 or equivalent. FINDINGS: IMPRESSION: 1. Report was generated for administrative purposes only. 2. Please see the operative/procedural note for further details. [facility], , 01/02/2024 1:20 PM
[2024-01-02] MEDS: DEXAMETHASONE SOD PHOSPHATE 4 MG/ML 1 ML VIAL IVP SCH (16:19)
[2024-01-02 16:33] LABS: Glucose,Whole Blood 273 mg/dL (70-110)
[2024-01-02 20:36] LABS: Glucose,Whole Blood 354 mg/dL (70-110)
[2024-01-03 06:21] LABS: Glucose,Whole Blood 204 mg/dL (70-110)
[2024-01-03] MEDS ORDERED: ENOXAPARIN 40 MG/0.4 ML SYRINGE SQ SCH (09:00)
--- NOTE | 2024-01-03 10:50 | P.PN ---
Subjective Progress Note Date: 01/03/24 Principal diagnosis: PE, unable to tolerate anticoagulation Patient is seen and examined today as a follow-up. Yesterday he underwent right femoral IVC filter placement. States he has some soreness in the access site however no redness, swelling, bleeding or hematoma. Objective - Vital Signs Vital signs: Vital Signs Temp 97.7 F 01/03/24 04:00 Pulse 70 01/03/24 04:00 Resp 15 01/03/24 04:00 BP 122/78 01/03/24 04:00 Pulse Ox 100 01/03/24 04:00 FiO2 Intake & Output 01/02/24 01/03/24 01/03/24 18:59 06:59 18:59 Intake Total 290 10 240 Balance 290 10 240 Weight 69.9 kg Intake: IV 50 10 Invasive Line 2 10 Oral 240 240 Other: Voiding Method Toilet # Voids 1 # Bowel Movements 0 - Exam General appearance: The patient is alert, oriented, appears in no acute distress. HET: Head is normocephalic and atraumatic. Neck: Supple. Heart: Regular. Lungs: Equal expansion, normal respiratory effort. Abdomen: Soft, nondistended. Extremities: Normal skin color and turgor. Right groin access site without any bleeding or hematoma noted. Neurological: No focal deficits. Alert and oriented. - Labs CBC & Chem 7: 01/01/24 06:36 01/01/24 06:36 Labs: Abnormal Lab Results - Last 24 Hours (Table) 01/02/24 01/02/24 01/03/24 Range/Units 16:31 20:34 06:19 POC Glucose (mg/dL) 273 H 354 H 204 H (70-110) mg/dL Assessment and Plan Assessment: 1. Pulmonary embolism unable to be anticoagulated secondary to hemorrhagic brain mass status post IVC filter placement 2. Metastatic stage IV lung cancer Plan: 1. May resume Lovenox 2. Patient is status post IVC filter placement 3. Rest of medical management per primary medical team 4. Outpatient follow-up as needed with vascular surgery for IVC filter retrieval when recommended by oncology. Thank you for this consultation. We will sign off at this time. The impression and plan of care has been dictated as directed. Dr. Bustamante I performed a history and examination of this patient, discussed the same with the dictator. I agree with the dictator's note ,documented as a scribe. Any additional findings or plans will be noted.
[2024-01-03 11:38] LABS: Glucose,Whole Blood 211 mg/dL (70-110)
--- NOTE | 2024-01-03 12:14 | P.PN ---
Subjective Progress Note Date: 01/03/24 S/p IVC filter, tolerated procedure well. Pt reports overall feeling well today. NO acute neuro changes. Plan for simulation today Objective - Vital Signs Vital signs: Vital Signs Temp 97.7 F 01/03/24 04:00 Pulse 70 01/03/24 04:00 Resp 15 01/03/24 04:00 BP 122/78 01/03/24 04:00 Pulse Ox 100 01/03/24 04:00 FiO2 Intake & Output 01/02/24 01/03/24 01/03/24 18:59 06:59 18:59 Intake Total 290 10 240 Balance 290 10 240 Weight 69.9 kg Intake: IV 50 10 Invasive Line 2 10 Oral 240 240 Other: Voiding Method Toilet # Voids 1 # Bowel Movements 0 - Constitutional General appearance: Present: average body habitus, no acute distress - EENT Eyes: Present: anicteric sclerae, EOMI ENT: Present: hearing grossly normal - Respiratory Details: breathing is even and unlabored - Cardiovascular Details: skin warm and dry - Integumentary Integumentary: Absent: cyanotic, jaundiced - Neurologic Neurologic Comment(s): no focal deficits - Psychiatric Psychiatric: Present: A&O x's 3 - Labs CBC & Chem 7: 01/01/24 06:36 01/01/24 06:36 Labs: Abnormal Lab Results - Last 24 Hours (Table) 01/02/24 01/02/24 01/03/24 Range/Units 16:31 20:34 06:19 POC Glucose (mg/dL) 273 H 354 H 204 H (70-110) mg/dL Assessment and Plan (1) Altered mental status Current Visit: Yes Status: Acute Priority: High Code(s): R41.82 - ALTERED MENTAL STATUS, UNSPECIFIED SNOMED Code(s): 768975852 (2) Metastasis to brain Current Visit: Yes Status: Acute Priority: High Code(s): C79.31 - SECONDARY MALIGNANT NEOPLASM OF BRAIN SNOMED Code(s): 47934297 (3) Syncope Current Visit: Yes Status: Acute Priority: High Code(s): R55 - SYNCOPE AND COLLAPSE SNOMED Code(s): 456220191 (4) Hyponatremia Current Visit: Yes Status: Acute Priority: Medium Code(s): E87.1 - HYPO- OSMOLALITY AND HYPONATREMIA SNOMED Code(s): 35785938 (5) Squamous cell lung cancer Current Visit: Yes Status: Acute Priority: High Code(s): C34.90 - MALIGNANT NEOPLASM OF UNSP PART OF UNSP BRONCHUS OR LUNG SNOMED Code(s): 843321958 Plan: Altered mental status, seizure, brain metastasis -1.8 cm hemorrhagic metastatic foci in the right occipital lobe with local mass effect/surrounding vasogenic edema, which was not noted on MRI brain obtained on 09/19/23. -Anticoagulation has been held due to concerns for hemorrhagic component in brain met.Spoke with Radiation Oncologist about timing from simulation to start of treatment. It is felt that SRS would start early next week. Pt will need IVC filter placed as he currently is not a candidate for anticoagulation. Did speak with Vascular PURCHASING AND FISCAL CLERK, pt needs retrievable IVC filter placed until brain met can be adequately treated. Vascular consult placed, they will see pt in AM. Reviewed all the above with pt. He verbalizes understanding and is agreeable to IVC filter. -Dexamethasone started for symptoms, 4mg q6hrs. Mentation improved, no acute neuro changes -Neurology following. EEG suggestive of mild encephalopathy, no seizure activity noted Anemia, thrombocytosis -Mild anemia, previously worked up, consistent with inflammation. No supplement needed at this time. Hgb stable -TSH 33.8. T3 1.0. Synthroid started -Thrombocytosis not new finding, persistent. Possible further work up outpt to rule out MPN Metastatic non small cell lung adenocarcinoma -S/P 1st cycle of carbo/alimta/keytruda on 12/06/23, subsequent cycle has been delayed due to repeat hospitalizations -Treatment will be on hold until pt recovers from acute situation and has had symptomatic brain mets treated. Plan for CT simulation today -Clinic f/u after SRS to asses when felt recovered enough to resume treatment. He will need to be tapered to less then 4mg of dex to resume keytruda. -Pt has had only 1 cycle of treatment, this met to the brain is not felt to represent failure of treatment as he has only had 1 cycle. Plan will be to continue current treatment, at least for 3-4 cycles Case discussed with rad onc and admitting teams. Pt is cleared for discharge after simulation from oncology standpoint
--- NOTE | 2024-01-03 12:28 | P.DS ---
Providers Date of admission: 12/28/23 22:22 Attending physician: Katty West MD Consults: 12/29/23 03:35 Consult Physician Routine Consulting Provider: Dayne Joyner Consult Reason/Comments: Seizure Do you want consulting provider notified?: Yes, Notify in am 12/29/23 03:40 Consult Physician Routine Consulting Provider: Zara Cohen Consult Reason/Comments: Stage IV lung cancer undergoing treatment Do you want consulting provider notified?: Yes, Notify in am 12/29/23 08:29 Consult Physician Routine Consulting Provider: Epifanio Hartmann Consult Reason/Comments: Metastatic head and neck cancer with new brain metastases Do you want consulting provider notified?: Yes 01/01/24 16:02 Consult Physician Routine Consulting Provider: Jamey Bustamante Consult Reason/Comments: retrievable IVS filter, pt cannot be anticoagulated Do you want consulting provider notified?: Already Contacted Primary care physician: [facility] Hospital Course: Discharge Diagnosis: Acute metabolic encephalopathy likely due to seizure from metastatic brain lesion Hyponatremia likely due to SIADH Diabetes mellitus Thrombocytosis Normocytic anemia Stage IV lung cancer History of PE Status post IVC filter Hypothyroidism Hyperkalemia Hospital Course: 63-year-old male with a PMH of stage IV lung mass (primary tumor versus metastasis from previous head and neck cancer from 2021, following with Dr. Roblero, receiving chemotherapy), diabetes mellitus type I, history of recent PE (on Eliquis), and hypothyroidism presents with symptoms of altered mental status. In the ED he underwent extensive evaluation. BP 143/102, HR 98, T 97.5F, RR 20, 96% on 3L NC. Initial lab work from the ER was significant for sodium 127, potassium 5.1, chloride 93, creatinine 0.67, glucose 258, magnesium 1.5, AST 73, ALT 38, alkaline phosphatase 394, troponin less than 0.012, BNP 436, serum alcohol <10. EKG showed heart rate of 97 bpm, no ST segment elevation or depression seen. CXR showed stable moderate-sized right + left pleural effusion, left lung opacity consistent with neoplasm and atelectatic change/scarring. Pelvic XR neg. CT head showed 1.8 cm hemorrhagic metastatic focus right occipital lobe with local mass effect/surrounding vasogenic edema. Patient's brain MRI showed right occipital lobe enhancing mass with surrounding vasogenic edema and no evidence of acute or subacute CVA. Patient was started on Keppra and Decadron. Patient's Eliquis was discontinued due to the brain mets as well as possible hemorrhagic metastatic focus seen on CT scan. Vascular surgery was consulted for IVC filter which was placed on 01/02/2024. Patient instructed to stop taking his Eliquis. Oncology was consulted who recommended radiation oncology. Patient seen by [facility] oncology who said patient would be a candidate for radiation treatment. Patient will have a CT simulation prior to discharge. Plan is for patient to start radiation therapy next week. I will also discharge the patient on Decadron 4 mg 3 times a day and will give 2-week supply. Patient to taper down dose in the outpatient setting by radiation oncology. At the time of discharge patient mentation had improved. He was seen walking around in his room. On the day of discharge patient also took a shower independently. Patient seen and examined at bedside.[] Vital signs reviewed and stable. General: [non toxic], [no distress], [appears at stated age] appears chronically debilitated Derm: [warm], [dry] Head: [atraumatic], [normocephalic], [symmetric] Eyes: [EOMI], [no lid lag], [anicteric sclera] Mouth: [no lip lesion], [mucus membranes moist] Cardiovascular: [S1S2 reg], [no murmur], [positive posterior tibial pulse bilateral], Lungs: [CTA bilateral], [no rhonchi, no rales] , [no accessory muscle use] Abdominal: [soft], [ nontender to palpation], [no guarding], [no appreciable organomegaly] Ext: [no gross muscle atrophy], [no edema], [no contractures] Neuro: [ CN II-XI grossly intact], [no focal neuro deficits] Psych: [Alert], [oriented], [appropriate affect] A total of [33] minutes of time were spent preparing this complex discharge summary . Patient discharged on [01/03/2024] Patient Condition at Discharge: Poor Plan - Discharge Summary Discharge Rx Participant: No New Discharge Prescriptions: New dexAMETHasone [Decadron] 4 mg PO TID 14 Days #42 tablet levETIRAcetam [Keppra] 750 mg PO BID 30 Days #60 tab Continue Levothyroxine Sodium [Synthroid] 175 mcg PO DAILY Dorzolamide-Timol 2.23%/0.68% [Cosopt] 1 drop BOTH EYES BID Multivitamins, Thera [Multivitamin (formulary)] 1 tab PO DAILY Insulin Glargine,Hum.rec.anlog [Lantus Solostar Pen] 16 units SQ HS Insulin Aspart [NovoLOG Flexpen] See Protocol SQ AC-TID HYDROcodone/APAP 10-325MG [[place] 10-325] 1 tab PO Q6H PRN PRN Reason: Pain Discontinued Nystatin 100,000 Unit/gm Powd [Mycostatin Powder] 1 applic TOPICAL TID PRN 7 Days #1 each PRN Reason: fungal-groin Apixaban [Eliquis Starter Pack (for VTE)] See Taper PO DIRECTED Discharge Medication List Multivitamins, Thera [Multivitamin (formulary)] 1 tab PO DAILY 09/02/21 [History] Levothyroxine Sodium [Synthroid] 175 mcg PO DAILY 08/30/23 [History] Dorzolamide-Timol 2.23%/0.68% [Cosopt] 1 drop BOTH EYES BID 12/16/23 [History] HYDROcodone/APAP 10-325MG [[place] 10-325] 1 tab PO Q6H PRN 12/16/23 [History] Insulin Aspart [NovoLOG Flexpen] See Protocol SQ AC-TID 12/16/23 [History] Insulin Glargine,Hum.rec.anlog [Lantus Solostar Pen] 16 units SQ HS 12/16/23 [History] dexAMETHasone [Decadron] 4 mg PO TID 14 Days #42 tablet 01/03/24 [Rx] levETIRAcetam [Keppra] 750 mg PO BID 30 Days #60 tab 01/03/24 [Rx] Follow up Appointment(s)/Referral(s): [facility],Clinic [Primary Care Provider] - 1-2 days Epifanio Hartmann MD [STAFF PHYSICIAN] - 1 Week Discharge Disposition: HOME SELF-CARE
[2024-01-03 12:29] VITALS: RESP 16
[2024-01-03 12:32] VITALS: BP 122/79; PULSE 67; TEMP 98.1
--- NOTE | 2024-01-04 10:41 | P.PN ---
Subjective Progress Note Date: 01/03/24 Patient was initially seen by Dr. Dayne Joyner. Please refer to his note for details. Patient has presented with episode of unresponsiveness and Dr. Joyner felt it was new onset seizure especially with brain metastasis. EEG revealed left frontal sharps but no seizure. Patient currently on Keppra. Patient tolerating Keppra well. No further seizures. Some of the workup during this hospital visit consisted of: TSH is vitamin B12 is 1695 TSH is 33.80 but the free T41.02. POC glucose is in the 300's Platelet is 1000 185,000. CT of the head and cervical spine is reported as no acute fracture or dislocation in the cervical spine. There is 1.8 cm hemorrhagic metastasis focus right occipital lobe with local mass effect/surrounding vasogenic edema. I personally reviewed the CT and it was hard to appreciate hemorrhagic metastasis. I did appreciate the mass with edema. Objective - Vital Signs Vital signs: Vital Signs Temp 98.1 F 01/03/24 11:35 Pulse 67 01/03/24 13:50 Resp 16 01/03/24 13:50 BP 122/79 01/03/24 11:35 Pulse Ox 100 01/03/24 11:35 FiO2 Intake & Output 01/02/24 01/03/24 01/03/24 18:59 06:59 18:59 Intake Total 290 10 358 Output Total 75 Balance 290 10 283 Weight 69.9 kg Intake: IV 50 10 Invasive Line 2 10 Oral 240 358 Output: Other 75 Other: Voiding Method Toilet Toilet # Voids 1 2 # Bowel Movements 0 - Exam On examination patient is alert and awake in no distress. Patient knows it is December 2023 and that he is in [facility] on [place]. Patient is standing up talking to the nurse. His visual escalera are full, with no neglect. Face is symmetric. Tongue protrudes to midline. He has very slight left flat nasolabial fold. Strength appears normal. - Labs CBC & Chem 7: 01/01/24 06:36 01/01/24 06:36 Labs: Abnormal Lab Results - Last 24 Hours (Table) 01/02/24 01/02/24 01/03/24 Range/Units 16:31 20:34 06:19 POC Glucose (mg/dL) 273 H 354 H 204 H (70-110) mg/dL 01/03/24 Range/Units 11:37 POC Glucose (mg/dL) 211 H (70-110) mg/dL Microbiology - Last 24 Hours (Table) 12/29/23 04:24 Blood Culture - Final Blood Assessment and Plan Assessment: This is a 63-year-old gentleman with history of stage IV lung cancer (primary tumor vs mets from previous head and neck cancer in 2021) presented emergency department because of altered mental status. Was found unresponsive was by his . MRI of the brain revealed right parietal occipital mass with vasogenic edema. Episode of unresponsiveness, probably due to new onset seizure. Patient has brain mets, likely causing new onset seizure Cerebral metastasis with vasogenic edema Altered mental status due to metabolic encephalopathy as well as due to brain mets Thrombocytosis Uncontrolled sugar Type 1 diabetes on insulin Plan: ED physician started the patient on Keppra 1000 mg every 12 hours and prior to this the patient was not on any antiseizure medication. EEG was abnormal. Background slowing suggestive of mild encephalopathy. There is sharply contoured activity over the left frontal region, which can increase risk for cortical irritability. Otherwise no seizures were recorded. No clear epileptiform discharges noted. Dr. Joyner has decreased Keppra down to 750 mg every 12 hours since the patient was not on any seizure prior to this admission. Patient is on Decadron 10 mg every 6 hours. Oncology team is consulted Patient on seizure precautions seizure pads Will defer the rest of the medical management to primary and other specialist Neurologically clear for discharge.
== END 2024-01-03 15:48 | disposition home or self-care (01) | DRG 54 ==
LOC: EC 21:41 → OBSVTOIN 22:22 → 3SCARD 22:22
PROVIDERS: ADMIT Internal Medicine; ATTEND Internal Medicine
PROC: 06H03DZ Insertion of Intraluminal Device into Inferior Vena Cava, Percutaneous Approach (ICD-10-PCS; principal; 2024-01-02 13:35)
DX: C79.31 Secondary malignant neoplasm of brain (principal); G93.41 Metabolic encephalopathy; G93.6 Cerebral edema; I26.99 Other pulmonary embolism without acute cor pulmonale; E22.2 Syndrome of inappropriate secretion of antidiuretic hormone; E87.20 Acidosis, unspecified; I50.32 Chronic diastolic (congestive) heart failure; C34.90 Malignant neoplasm of unspecified part of unspecified bronchus or lung; J91.0 Malignant pleural effusion; D63.0 Anemia in neoplastic disease; E03.9 Hypothyroidism, unspecified; C76.0 Malignant neoplasm of head, face and neck; R56.9 Unspecified convulsions; E10.65 Type 1 diabetes mellitus with hyperglycemia; E87.5 Hyperkalemia; D75.839 Thrombocytosis, unspecified; R32 Unspecified urinary incontinence; W07.XXXA Fall from chair, initial encounter; Z79.4 Long term (current) use of insulin; Z79.890 Hormone replacement therapy; Z79.899 Other long term (current) drug therapy; Z92.21 Personal history of antineoplastic chemotherapy; Z92.3 Personal history of irradiation
CPT/HCPCS: 36415; 37191; 70450; 70553; 71045; 72125; 72170; 80048; 80053; 80320; 81003; 82140; 82607; 82728; 82747; 83540; 83550; 83605; 83735; 83880; 83921; 84100; 84132; 84439; 84443; 84481; 84484; 85025; 85027; 85610; 85730; 87040; 93005; 94760; 95816; 96361; 96374; 96375; 96376; 99291

== ENCOUNTER 2024-01-19 12:25 | Inpatient (IN) | payer OTHER, MEDICARE ==
--- NOTE | 2024-01-19 12:37 | ED ---
General Adult HPI - General Stated complaint: stroke/seizure Time Seen by Provider: 01/19/24 12:29 Source: patient, EMS, RN notes reviewed, old records reviewed - History of Present Illness Initial comments: Is a 63-year-old male who presents emergency department for strokelike symptoms. 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 Also has a seizure history. Presents to the emergency department complaining of strokelike symptoms. Last known well was last night sometime. Apparently woke up this morning like this. Unknown if patient has residual deficits from prior strokes. Patient's was concerned. Patient is alert and oriented x 4 however somewhat slow to respond to questioning and has a dilated left pupil. Unable to move the left side of his body. Does seem mildly confused. Is mildly hypertensive. Does not appear he is on any blood thinners. Symptoms began when he woke up this morning at an unknown time. EMS provides most of the patient's history. Presents for further evaluation at this time. Reported trauma or falls. Did seize for EMS when they arrived, and he does have a history of seizure. Unknown if he took his Keppra this morning. - Related Data Home Medications Medication Instructions Recorded Confirmed Multivitamins, Thera [Multivitamin 1 tab PO DAILY 09/02/21 01/19/24 (formulary)] Levothyroxine Sodium [Synthroid] 175 mcg PO DAILY 08/30/23 01/19/24 Dorzolamide-Timol 2.23%/0.68% 1 drop BOTH EYES BID 12/16/23 01/19/24 [Cosopt] HYDROcodone/APAP 10-325MG [Olean 1 tab PO Q6H PRN 12/16/23 01/19/24 10-325] Insulin Aspart [NovoLOG Flexpen] See Protocol SQ AC-TID 12/16/23 01/19/24 Insulin Glargine,Hum.rec.anlog 16 units SQ HS 12/16/23 01/19/24 [Lantus Solostar Pen] Previous Rx's Medication Instructions Recorded dexAMETHasone [Decadron] 4 mg PO TID 14 Days #42 tablet 01/03/24 levETIRAcetam [Keppra] 750 mg PO BID 30 Days #60 tab 01/03/24 Allergies Allergy/AdvReac Type Severity Reaction Status Date / Time No Known Allergies Allergy Verified 01/19/24 13:57 Review of Systems ROS Statement: Those systems with pertinent positive or pertinent negative responses have been documented in the HPI. Review of Systems: CONST: Denies fever EYES: Denies blurry vision ENT: Denies nasal congestion C/V: Denies Chest pain RESP: Denies shortness of breath GI: Denies abdominal pain : Denies dysuria SKIN: Denies rash. MSK: Denies joint pain. NEURO: Denies headache ROS Other: All systems not noted in ROS Statement are negative. 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 CT SCAN SHOWING MASS LT LUNG. HAVING SOB History of Any Multi-Drug Resistant Organisms: None Reported Past Surgical History: Orthopedic Surgery (Right ankle surgery) Additional Past Surgical History / Comment(s): eye surgery-BILAT GLAUCOMA. 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 AGO LT EYE Past Anesthesia/Blood Transfusion Reactions: No Reported Reaction Past Psychological History: No Psychological Hx Reported Smoking Status: Never smoker Past Alcohol Use History: None Reported Past Drug Use History: None Reported Additional Drug Use History / Comment(s): Remote history of marijuana use - Past Family History Mother Family Medical History: No Reported History Father Additional Family Medical History / Comment(s): EtOH abuse General Exam - General Exam Comments Initial Comments: General: Appears in mild distress. HEAD: Normal with no signs of head trauma. EYES: Appears EOMI. Conjunctiva normal. Left pupil is approximately 5 mm and minimally reactive. Right pupil is approximately 3 mm and reactive to light. ENT: Hearing grossly intact, normal oropharynx. RESPIRATORY: Clear breath sounds bilaterally. No wheezes, rales, or rhonchi. C/V: Regular rate and rhythm. S1 and S2 auscultated, peripheral pulses 2+ and intact throughout ABD: Abd is soft, nontender, nondistended EXT: Deformity. SKIN: No rashes or lesions observed on exposed skin. NEURO: Alert and oriented x 4. NIH is approximately 12. Patient receives 1 point for dysarthria, 2 points for ataxia, 4 points for no movement in the left leg. 4 points for no movement in the left arm. 1 point for minor left-sided facial paralysis. Course Vital Signs 01/19/24 01/19/24 01/19/24 12:26 12:51 12:59 Temperature 98.6 F Pulse Rate 102 H 110 H 114 H Respiratory 18 18 18 Rate Blood Pressure 184/117 189/122 194/126 O2 Sat by Pulse 96 98 92 L Oximetry 01/19/24 01/19/24 01/19/24 13:02 14:00 15:07 Temperature Pulse Rate 112 H 110 H 100 Respiratory 18 16 9 L Rate Blood Pressure 196/37 187/98 168/108 O2 Sat by Pulse 93 L 93 L 90 L Oximetry 01/19/24 01/19/24 15:30 15:41 Temperature Pulse Rate 99 100 Respiratory 14 18 Rate Blood Pressure 136/91 139/95 O2 Sat by Pulse 92 L 93 L Oximetry Medical Decision Making - Medical Decision Making Was pt. sent in by a medical professional or institution ([facility] Jackson, PRESCHOOL ASSISTANT, urgent care, hospital, or group home...) When possible be specific @ -No Did you speak to anyone other than the patient for history (EMS, parent, family, police, friend...)? What history was obtained from this source @ -Chest provide most of the patient's history including the seizure at the scene. Discussed with patient's over the phone who stated that patient began having abnormal symptoms approximately him this morning and concern for seizure or something else going on. Last known well was 9 AM. This is an outside movement for the place. This was obtained after workup had been completed. Patient is outside the 4 and half hour window. This is a different history than what was provided by EMS. However due to the patient's history, seizure, brain tumor, risks still outweigh benefits of tenecteplase. Patient's was in agreement with this assessment. She did confirm that patient is full code. Did you review nursing and triage notes (agree or disagree)? Why? @ -I reviewed and agree with nursing and triage notes Were old charts reviewed (outside hosp., previous admission, EMS record, old EKG, old radiological studies, urgent care reports/EKG's, group home records)? Report findings @ -Reviewed patient's medication list which shows he is on Keppra. Also reviewed CT imaging from December 27 which shows a hemorrhagic metastatic focus in the right occipital lobe with surrounding vasogenic edema and local mass effect. MRI from the same visit on December 28 shows a right occipital lobe enhancing mass with surrounding vasogenic edema. Patient's Eliquis was stopped at that time. The filter was placed on previous admission. Discharged home on steroids. Differential Diagnosis (chest pain, altered mental status, abdominal pain women, abdominal pain men, vaginal bleeding, weakness, fever, dyspnea, syncope, headache, dizziness, GI bleed, back pain, seizure, CVA, palpatations, mental health, musculoskeletal)? @ -Differential CVA Ischemic stroke, hemorrhagic stroke, brain tumor, atypical migraine, Wernicke's encephalopathy, seizure, multiple sclerosis, meningitis, encephalitis, hypoglycemia, Guillain-Babcock, electrolytes disturbance, myasthenia gravis.... This is not meant to be an all-inclusive list EKG interpreted by me (3pts min.). @ -As above X-rays interpreted by me (1pt min.). @ -X-ray reveals no obvious acute cardiopulmonary process. Chronic findings including pleural catheter in place. CT interpreted by me (1pt min.). @ -Brain reveals known right occipital mass with surrounding vasogenic edema. Now noting [address] angio of the head and neck reveals no obvious acute large vessel occlusion or acute process. U/S interpreted by me (1pt. min.). @ -None done What testing was considered but not performed or refused? (CT, X-rays, U/S, labs)? Why? @ -None What meds were considered but not given or refused? Why? @ -None Did you discuss the management of the patient with other professionals (professionals i.e. , PA, PRESCHOOL ASSISTANT, lab, RT, psych nurse, licensed social worker, linen supervisor, teacher, front desk officer, correctional casework specialist)? Give summary @ -Discussed the case with Dr. Ahuja the neurocritical care physician who recommended medical management with patient's past medical history and was in agreement that patient is not a tenecteplase candidate.Is in agreement with plan for medical management. Discussed the case with Dr. Roblero of oncology who is rounding the emergency department. Was in agreement with plan for admission to our facility for restarting IV steroids. Would like me to clear it with neurology prior to adm ission but does not believe patient requires transfer at this time. I spoke with on-call neurologist, Dr. Danielle who is in agreement the plan. Recommended blood pressure be controlled below 180/120. Was in agreement plan for continuation of IV Keppra as well as 6 mg every 6 hours Decadron with a 20 mg IV Decadron bolus. Discussed the eye finding with neurology who thinks it is unlikely from the tumor and recommended continued monitoring at this time. Anuj's paralysis is on the differential. Discussed the case with the admitting provider, Dr. Humphrey who accepted the admission. Patient had a seizure here in the department. Resolved with 2 mg IV Ativan. Patient remains postictal at this time. Due to the complexity of the case, I did discuss it with Dr. Wright who accepted the patient to ICU. Requested that ABG be obtained. Was smoking cessation discussed for >3mins.? @ -No Was critical care preformed (if so, how long)? @ -yes, 45 minutes Were there social determinants of health that impacted care today? How? (Homelessness, low income, unemployed, alcoholism, drug addiction, transportation, low edu. Level, literacy, decrease access to med. care, senior living, rehab)? @ -No Was there de-escalation of care discussed even if they declined (Discuss DNR or withdrawal of care, Hospice)? DNR status @ -Patient confirmed to be full code after discussion with patient's over the phone. What co-morbidities impacted this encounter? (DM, HTN, Smoking, COPD, CAD, Cancer, CVA, ARF, Chemo, Hep., AIDS, mental health diagnosis, sleep apnea, morbid obesity)? @ -Cancer, brain metastasis Was patient admitted / discharged? Hospital course, mention meds given and route, prescriptions, significant lab abnormalities, going to OR and other pertinent info. @ -Presents emergency department with strokelike symptoms. Woke up with symptoms. Last known well sometime last night. NIH is approximately 12. Patient is not a candidate for tPA with his brain mets history, as well as unk nown exact last known well as it is likely over 4 and half hours ago. Risk far outweigh the benefits for the patient. Patient made a code stroke. Vitals remarkable for mild hypertension. He is currently protecting his airway. Patient did have a seizure at the scene and unknown if he took his Keppra this morning therefore will be given 1500 mg of IV Keppra as well as started on IV fluid bolus. Patient was in agreement this plan. Based on chart review, he was previously on Eliquis however he stopped it during last admission which was 2 weeks ago. Currently not on any blood thinners. EKG shows no signs of acute ischemia. Imaging negative for any obvious acute stroke. Does revealed the known right occipital brain mass with surrounding vasogenic edema and 3 mm of midline shift. Laboratory studies returned relatively unremarkable. Mild hyponatremia and hypochloremia of 97. 4+ glucose on urine. Patient is mildly anemic at 12.7 with slight leukocytosis of 11.5 which is likely reactive. Patient administered aspirin. Resting comfortably at this time. No further seizures. Patient given a dose of IV labetalol for her blood pressure. Patient was discussed with Dr. Mchugh who recommended admission to our facility and does not believe patient requires transfer for neurosurgery evaluation. Dr. Jara did reach out to Dr. Hartmann the radiation oncologist to reviewed imaging and believes that there is no significant change in the mass, and this was conveyed to me through Dr. Mchugh. I spoke with Dr. Danielle of neurology who was in agreement plan for admission. Was in agreement plan for IV Decadron 6 mg every 6 hours as well as 20 mg IV bolus. Was in agreement with IV Keppra for seizures. Was in agreement the plan for labetalol for blood pressure control. Patient did have a seizure here in the department. He is postictal at this time. Received 2 mg IV Ativan during the seizure episode. Vitals within acceptable limits except for he is mildly hypoxic likely secondary to being postictal. Due to the seizure as well as complexity of the case I did reach out to Dr. Wright of ICU who did accept the patient to the ICU. Was otherwise in agreement management at this time. I spoke with the admitting provider, Dr. Humphrey for the admission. Undiagnosed new problem with uncertain prognosis? @ -No Drug Therapy requiring intensive monitoring for toxicity (Heparin, Nitro, Insulin, Cardizem)? @ -No Were any procedures done? @ -No Diagnosis/symptom? @ -Seizure, possible CVA Anuj's paralysis, brain mass with vasogenic edema Acute, or Chronic, or Acute on Chronic? @ -Acute Uncomplicated (without systemic symptoms) or Complicated (systemic symptoms)? @ -Complicated Side effects of treatment? @ -None Exacerbation, Progression, or Severe Exacerbation] @ -No Poses a threat to life or bodily function? @ -Yes - Lab Data Result diagrams: 01/19/24 13:02 01/19/24 13:02 Lab Results 01/19/24 01/19/24 01/19/24 Range/Units 12:58 13:02 13:02 WBC 11.5 H (3.8-10.6) k/uL RBC 3.97 L (4.30-5.90) m/uL Hgb 12.7 L (13.0-17.5) gm/dL Hct 40.3 (39.0-53.0) % MCV 101.3 H (80.0-100.0) fL MCH 31.8 (25.0-35.0) pg MCHC 31.4 (31.0-37.0) g/dL RDW 17.0 H (11.5-15.5) % Plt Count 488 H (150-450) k/uL MPV 6.9 Neutrophils % 70 % Lymphocytes % 20 % Monocytes % 7 % Eosinophils % 1 % Basophils % 0 % Neutrophils # 8.0 H (1.3-7.7) k/uL Lymphocytes # 2.3 (1.0-4.8) k/uL Monocytes # 0.8 (0-1.0) k/uL Eosinophils # 0.1 (0-0.7) k/uL Basophils # 0.0 (0-0.2) k/uL Hypochromasia Slight Anisocytosis Slight Macrocytosis Moderate PT 10.0 (10.0-12.5) sec INR 0.9 (<1.2) APTT 22.2 (22.0-30.0) sec Sodium (137-145) mmol/L Potassium (3.5-5.1) mmol/L Chloride (98-107) mmol/L Carbon Dioxide (22-30) mmol/L Anion Gap mmol/L BUN (9-20) mg/dL Creatinine (0.66-1.25) mg/dL Est GFR (CKD-EPI)AfAm (>60 ml/min/1.73 sqM) Est GFR (CKD-EPI)NonAf (>60 ml/min/1.73 sqM) Glucose (74-99) mg/dL POC Glucose (mg/dL) 313 H (70-110) mg/dL POC Glu Ballistician ID Sparkle Godfrey Calcium (8.4-10.2) mg/dL Total Bilirubin (0.2-1.3) mg/dL AST (17-59) U/L ALT (4-49) U/L Alkaline Phosphatase (38-126) U/L Creatine Kinase (55-170) U/L Total Protein (6.3-8.2) g/dL Albumin (3.5-5.0) g/dL Urine Color Urine Appearance (Clear) Urine pH (5.0-8.0) Ur Specific Hartley (1.001-1.035) Urine Protein (Negative) Urine Glucose (UA) (Negative) Urine Ketones (Negative) Urine Blood (Negative) Urine Nitrite (Negative) Urine Bilirubin (Negative) Urine Urobilinogen (<2.0) mg/dL Ur Leukocyte Esterase (Negative) Urine Opiates Screen (NotDetected) Ur Oxycodone Screen (NotDetected) Urine Methadone Screen (NotDetected) Ur Barbiturates Screen (NotDetected) U Tricyclic Antidepress (NotDetected) Ur Phencyclidine Scrn (NotDetected) Ur Amphetamines Screen (NotDetected) U Methamphetamines Scrn (NotDetected) U Benzodiazepines Scrn (NotDetected) Urine Cocaine Screen (NotDetected) U Marijuana (THC) Screen (NotDetected) 01/19/24 01/19/24 Range/Units 13:02 13:29 WBC (3.8-10.6) k/uL RBC (4.30-5.90) m/uL Hgb (13.0-17.5) gm/dL Hct (39.0-53.0) % MCV (80.0-100.0) fL MCH (25.0-35.0) pg MCHC (31.0-37.0) g/dL RDW (11.5-15.5) % Plt Count (150-450) k/uL MPV Neutrophils % % Lymphocytes % % Monocytes % % Eosinophils % % Basophils % % Neutrophils # (1.3-7.7) k/uL Lymphocytes # (1.0-4.8) k/uL Monocytes # (0-1.0) k/uL Eosinophils # (0-0.7) k/uL Basophils # (0-0.2) k/uL Hypochromasia Anisocytosis Macrocytosis PT (10.0-12.5) sec INR (<1.2) APTT (22.0-30.0) sec Sodium 128 L (137-145) mmol/L Potassium 4.8 (3.5-5.1) mmol/L Chloride 97 L (98-107) mmol/L Carbon Dioxide 28 (22-30) mmol/L Anion Gap 3 mmol/L BUN 25 H (9-20) mg/dL Creatinine 0.67 (0.66-1.25) mg/dL Est GFR (CKD-EPI)AfAm >90 (>60 ml/min/1.73 sqM) Est GFR (CKD-EPI)NonAf >90 (>60 ml/min/1.73 sqM) Glucose 328 H (74-99) mg/dL POC Glucose (mg/dL) (70-110) mg/dL POC Glu Ballistician ID Calcium 8.2 L (8.4-10.2) mg/dL Total Bilirubin 0.6 (0.2-1.3) mg/dL AST 51 (17-59) U/L ALT 59 H (4-49) U/L Alkaline Phosphatase 215 H (38-126) U/L Creatine Kinase 56 (55-170) U/L Total Protein 6.8 (6.3-8.2) g/dL Albumin 3.6 (3.5-5.0) g/dL Urine Color Colorless Urine Appearance Clear (Clear) Urine pH 5.0 (5.0-8.0) Ur Specific Hartley 1.028 (1.001-1.035) Urine Protein Negative (Negative) Urine Glucose (UA) 4+ H (Negative) Urine Ketones Negative (Negative) Urine Blood Negative (Negative) Urine Nitrite Negative (Negative) Urine Bilirubin Negative (Negative) Urine Urobilinogen <2.0 (<2.0) mg/dL Ur Leukocyte Esterase Negative (Negative) Urine Opiates Screen Detected H (NotDetected) Ur Oxycodone Screen Not Detected (NotDetected) Urine Methadone Screen Not Detected (NotDetected) Ur Barbiturates Screen Not Detected (NotDetected) U Tricyclic Antidepress Not Detected (NotDetected) Ur Phencyclidine Scrn Not Detected (NotDetected) Ur Amphetamines Screen Not Detected (NotDetected) U Methamphetamines Scrn Not Detected (NotDetected) U Benzodiazepines Scrn Not Detected (NotDetected) Urine Cocaine Screen Not Detected (NotDetected) U Marijuana (THC) Screen Detected H (NotDetected) - EKG Data -: EKG Interpreted by Me EKG Comments: 12-lead Electrocardiogram Interpretation Note EKG was reviewed and interpreted by myself. 12-lead ECG performed at 1256 is interpreted by me as revealing tachycardia at a rate of 113 beats per minute. Left axis deviation. MS interval is 160 ms, QRS durations 104 ms, QTc is 388 ms.. There were no ST or T wave abnormalities to suggest myocardial ischemia or injury. R wave progression across the precordium was mildly dealyed. By my interpretation this EKG is non-diagnostic for acute ischemia. Critical Care Time Critical Care Time: Yes Total Critical Care Time: 45 Disposition Clinical Impression: Cerebrovascular accident (CVA), Seizure, Mass, brain Disposition: ADMITTED IP TO THIS [facility] Condition: Serious Time of Disposition: 14:25
[2024-01-19] MEDS: levETIRAcetam IV 500 MG/5 ML VIAL IVP STA (12:39)
[2024-01-19 13:00] LABS: Glucose,Whole Blood 313 mg/dL (70-110)
--- NOTE | 2024-01-19 13:09 | CT ---
EXAMINATION TYPE: CODE STROKE: CT brain wo contr CT DLP: 1632.6 mGycm, Automated exposure control for dose reduction was used. DATE OF EXAM: 01/19/2024 12:56 PM COMPARISON: CT brain C-spine 12/28/2023, MRI brain 12/29/2023 CLINICAL INDICATION:Male, 63 years old with history of Neuro deficit, acute, stroke suspected, left s silvia weakness, AMS TECHNIQUE: Brain: Multiple axial CT images of the brain were obtained without IV contrast. . Coronal and sagitta l reformats reviewed. FINDINGS: Brain: Extra-axial spaces: No abnormal extra-axial fluid collections. Ventricular system: There is effacement of the posterior aspect of the body of the right lateral vent ricle with involvement of the posterior horn again. Cerebral parenchyma: No acute intraparenchymal hemorrhage. Relatively stable size of 2.1 cm hyperdens e lesion within the right occipital lobe (series 27, image 31) when measured with similar technique. There is again low density vasogenic edema which appears slightly increased from prior examination in volving more of the anterior parietal lobe. There is surrounding effacement of the peripheral sulci. The reyes-white junction is well differentiated. Cerebellum: Unremarkable. Mass effect: There is approximately 3 mm of midline shift to the left. Intracranial vasculature: unremarkable Soft tissues: Normal. Calvarium/osseous structures: No depressed skull fracture. Paranasal sinuses and mastoid air cells: The mastoid air cells are clear. Small mucosal retention cys t within the left maxillary sinus and left sphenoid sinus. Visualized orbits: Bilateral aphakia. Bilateral scleral victorino. IMPRESSION: Redemonstration of hyperdense right occipital lobe 2.1 cm lesion with increasing surrounding vasogeni c edema from prior examination. Results in 3 mm of leftward midline shift. [facility], , 01/19/2024 1:03 PM
--- NOTE | 2024-01-19 13:17 | CT ---
EXAMINATION TYPE: CT angio head neck CT DLP: 1632.6 mGycm, Automated exposure control for dose reduction was used. DATE OF EXAM: 01/19/2024 1:12 PM COMPARISON: CT brain 01/19/2024, CT brain C-spine 12/28/2023, MRI brain 12/29/2023, CTA chest 4. CLINICAL INDICATION:Male, 63 years old with history of Neuro deficit, acute, stroke suspected; [facility], TECHNIQUE: Axially acquired helical CT angiogram of the head and neck was obtained with contrast util izing 75 cc of Isovue-370 administered intravenously. Axial images are supplemented with 3D reconstru ctions which were post-processed at an independent workstation. NASCET criteria used. FINDINGS: CTA HEAD: Please refer to CT brain for findings related to known massive vasogenic edema within the right occip ital lobe. This mass enhances. The visualized portions of the internal carotid arteries, middle cerebral arteries, anterior cerebra l arteries, and posterior cerebral arteries are patent. The basilar and vertebral arteries are patent. CTA NECK: Right Carotid System: The common carotid artery and external carotid artery are patent. The carotid bifurcation demonstrate s no evidence of hemodynamically significant stenosis. The remaining portions of the internal carotid artery demonstrate normal size without significant narrowing. Left Carotid System: The common carotid artery and external carotid artery are patent. The carotid bifurcation demonstrate s no evidence of hemodynamically significant stenosis. The remaining portions of the internal carotid artery demonstrate normal size without significant narrowing. Vertebral arteries are patent without evidence hemodynamically significant stenosis. There is a three-vessel aortic arch. The origins of the great vessels are patent. No evidence of hemo dynamically significant stenosis. Partial visualization of left upper lobe known large pulmonary mass with extension into the mediastin um. Enlarged right peritracheal lymph node measuring 1 cm. Thyroid gland is atrophic or surgically ab sent. IMPRESSION: 1. No evidence of dissection of the cervical internal carotid arteries or vertebral arteries or any e vidence of significant stenosis at the carotid bifurcations. 2. No evidence of high-grade stenosis or intracranial aneurysm. 3. Partial visualization of left upper lobe known large pulmonary malignancy with extension to the me diastinum and recent adenopathy. 4. Redemonstration of enhancing right occipital lobe mass with surrounding vasogenic edema. Please re britany to dedicated CT brain same day for findings. [facility], , 01/19/2024 1:15 PM
--- NOTE | 2024-01-19 13:28 | XR ---
EXAMINATION TYPE: XR chest 1V DATE OF EXAM: 01/19/2024 COMPARISON: 12/28/2023 CLINICAL INDICATION: Male, 63 years old with confusion, history of altered mental status; TECHNIQUE: Single frontal view of the chest is obtained. FINDINGS: Left basilar pleural catheter remains in place. Ongoing extensive opacification throughout the left hemithorax and some volume loss. The previous effusion on the right shows improvement with residual trace fluid. Interstitial density on the right have increased from prior. IMPRESSION: 1. Improvement in the previous right pleural effusion though trace effusion remains. 2. Interstitial density has increased. Correlate for pulmonary vascular congestion. 3. Ongoing volume loss and extensive pleural parenchymal opacity throughout the left hemithorax. Left basilar pleural catheter in place. [facility], , 01/19/2024 1:26 PM
[2024-01-19] MEDS: DEXAMETHASONE SOD PHOSPHATE 10 MG/ML 1 ML VIAL IVP STA ×2 (13:36→13:39)
[2024-01-19] MEDS: ONDANSETRON 4 MG/2 ML VIAL IVP STA (13:36)
[2024-01-19] MEDS: SODIUM CHLORIDE 0.9% 1,000 ML IV STA ×3 (13:36→15:45)
[2024-01-19 13:41] LABS: Anisocytosis Slight; Basophils % (A) 0 %; Eosinophils # (A) 0.1 k/uL (0-0.7); Eosinophils % (A) 1 %; HCT 40.3 % (39.0-53.0); HGB 12.7 gm/dL (13.0-17.5); Hypochromasia Slight; Lymphocytes # (A) 2.3 k/uL (1.0-4.8); Lymphocytes % (A) 20 %; MCH 31.8 pg (25.0-35.0); MCHC 31.4 g/dL (31.0-37.0); MCV 101.3 fL (80.0-100.0); Macrocytosis Moderate; Mean Platelet Volume 6.9; Monocytes # (A) 0.8 k/uL (0-1.0); Monocytes % (A) 7 %; Neutrophils % (A) 70 %; Platelet Count 488 k/uL (150-450); RBC 3.97 m/uL (4.30-5.90); WBC 11.5 k/uL (3.8-10.6)
[2024-01-19 13:42] LABS: Appearance,Urine Clear (Clear); Bilirubin,Urine Negative (Negative); Blood,Urine Negative (Negative); Color,Urine Colorless; Glucose,Urine (UA) 4+ (Negative); Ketones,Urine Negative (Negative); Leukocyte Esterase,Urine Negative (Negative); Nitrite,Urine Negative (Negative); Protein,Urine Negative (Negative); Specific Gravity,Urine 1.028 (1.001-1.035); Urobilinogen,Urine <2.0 mg/dL (<2.0)
[2024-01-19 13:56] LABS: Amphetamine Screen,Urine Not Detected (NotDetected); Barbiturate Screen,Urine Not Detected (NotDetected); Benzodiazepines Screen,Urine Not Detected (NotDetected); Cocaine Screen,Urine Not Detected (NotDetected); Methadone Screen, Urine Not Detected (NotDetected); Opiate Screen,Urine Detected (NotDetected); Oxycodone Screen, Urine Not Detected (NotDetected); Phencyclidine Screen,Urine Not Detected (NotDetected); Tricyclic Antidepressant,Urine Not Detected (NotDetected); Urn Cannabinoid Scrn Detected (NotDetected)
[2024-01-19 13:58] LABS: INR 0.9 (<1.2); Partial Thromboplastin Time 22.2 sec (22.0-30.0)
[2024-01-19] MEDS: LABETALOL 5 MG/ML VIAL MDV IVP STA (14:04)
[2024-01-19 14:30] LABS: ALT 59 U/L (4-49); AST 51 U/L (17-59); African American GFR (CKD) >90 (>60 ml/min/1.73 sqM); Albumin 3.6 g/dL (3.5-5.0); Alkaline Phosphatase 215 U/L (38-126); Anion Gap 3 mmol/L; Blood Urea Nitrogen 25 mg/dL (9-20); Calcium 8.2 mg/dL (8.4-10.2); Carbon Dioxide 28 mmol/L (22-30); Chloride 97 mmol/L (98-107); Creatine Kinase 56 U/L (55-170); Glucose 328 mg/dL (74-99); Non-African American GFR(CKD) >90 (>60 ml/min/1.73 sqM); Potassium 4.8 mmol/L (3.5-5.1); Sodium 128 mmol/L (137-145); Total Bilirubin 0.6 mg/dL (0.2-1.3); Total Protein 6.8 g/dL (6.3-8.2)
[2024-01-19] MEDS ORDERED: ONDANSETRON 4 MG/2 ML VIAL IVP PRN (14:58)
[2024-01-19] MEDS ORDERED: NALOXONE 0.4 MG/ML 1 ML VIAL IV PRN ×2 (14:58→15:02)
[2024-01-19] MEDS: LORazepam 2 MG/ML INJ IV PRN (15:04)
[2024-01-19] MEDS: HEPARIN SODIUM,PORCINE 5,000 UNIT/ML 1 ML VIAL SQ SCH (15:22)
--- NOTE | 2024-01-19 15:35 | P.HPIM ---
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 After speaking with the ER staff, patient had an NIH of 12 when he presented to the hospital. Last known normal was unclear but sometime yesterday night. Otherwise patient was experiencing left-sided weakness, drooping, dysarthria. He also had dilation of the left pupil which she does have a history of but has been enlarging over the past couple of weeks since his discharge. During his last hospitalization he was discharged on Decadron and was advised to follow-up with neurology as an outpatient as well as primary care physician. Apparently the patient has made appointments but has not had a chance to follow-up in 2 days experiencing the symptoms so EMS brought the patient in for further evaluation. CT of the brain demonstrated a 2.1 cm lesion, enlarging from prior, and worsening vasogenic edema and mild left midline shift. Patient has a history of seizures, on Keppra at home, unclear if he took his Keppra but he did have 1 episode of the seizures with EMS. Review of Systems 14 point review of system is negative except what is pertinently positive in HPI Past Medical History Past Medical History: Cancer, Diabetes Mellitus, Eye Disorder, Thyroid Disorder Additional Past Medical History / Comment(s): HX TONGUE AND NECK CANCER-CHEMO AND RADIATION-NO SURGERY. CT SCAN SHOWING MASS LT LUNG. HAVING SOB History of Any Multi-Drug Resistant Organisms: None Reported Past Surgical History: Orthopedic Surgery (Right ankle surgery) Additional Past Surgical History / Comment(s): eye surgery-BILAT GLAUCOMA. 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 AGO LT EYE Past Anesthesia/Blood Transfusion Reactions: No Reported Reaction Past Psychological History: No Psychological Hx Reported Smoking Status: Never smoker Past Alcohol Use History: None Reported Past Drug Use History: None Reported Additional Drug Use History / Comment(s): Remote history of marijuana use - Past Family History Mother Family Medical History: No Reported History Father Additional Family Medical History / Comment(s): EtOH abuse Medications and Allergies Home Medications Medication Instructions Recorded Confirmed Type Multivitamins, Thera [Multivitamin 1 tab PO DAILY 09/02/21 01/19/24 History (formulary)] Levothyroxine Sodium [Synthroid] 175 mcg PO DAILY 08/30/23 01/19/24 History Dorzolamide-Timol 2.23%/0.68% 1 drop BOTH EYES BID 12/16/23 01/19/24 History [Cosopt] HYDROcodone/APAP 10-325MG [[place] 1 tab PO Q6H PRN 12/16/23 01/19/24 History 10-325] Insulin Aspart [NovoLOG Flexpen] See Protocol SQ AC-TID 12/16/23 01/19/24 History Insulin Glargine,Hum.rec.anlog 16 units SQ HS 12/16/23 01/19/24 History [Lantus Solostar Pen] dexAMETHasone [Decadron] 4 mg PO TID 14 Days #42 tablet 01/03/24 01/19/24 Rx levETIRAcetam [Keppra] 750 mg PO BID 30 Days #60 tab 01/03/24 01/19/24 Rx Allergies Allergy/AdvReac Type Severity Reaction Status Date / Time No Known Allergies Allergy Verified 01/19/24 13:57 Physical Exam Vitals: Vital Signs Temp Pulse Resp BP Pulse Ox 01/19/24 15:07 100 9 L 168/108 90 L 01/19/24 13:02 112 H 18 196/37 93 L 01/19/24 12:59 114 H 18 194/126 92 L 01/19/24 12:51 110 H 18 189/122 98 01/19/24 12:26 98.6 F 102 H 18 184/117 96 Intake and Output 01/19/24 01/19/24 01/19/24 06:59 14:59 22:59 Other: Weight 77.7 kg General: Acutely ill-appearing, patient was unresponsive at the time of asses sment, not alert or oriented, after several minutes he was able to answer questions, likely had a seizure, no tonic-clonic movement Derm: Dry skin Eyes: Bilateral dilated atria of the pupils, poorly reactive to light Mouth: Mucous membranes Cardiovascular: [S1S2 reg], [no murmur], [positive posterior tibial pulse bilateral], Lungs: [CTA bilateral], [no rhonchi, no rales] , [no accessory muscle use] Abdominal: Patient has a Pleurx catheter is currently in place, not connected to any drain continue Ext: No edema noted Neuro: Unable to participate with neuroexam due to altered mentation, no larry oping noted Psych: Not alert, not oriented, answers 1-2 simple words, states that he is at home Results CBC & Chem 7: 01/19/24 13:02 01/19/24 13:02 Labs: Abnormal Lab Results - Last 24 Hours (Table) 01/19/24 01/19/24 01/19/24 Range/Units 12:58 13:02 13:02 WBC 11.5 H (3.8-10.6) k/uL RBC 3.97 L (4.30-5.90) m/uL Hgb 12.7 L (13.0-17.5) gm/dL MCV 101.3 H (80.0-100.0) fL RDW 17.0 H (11.5-15.5) % Plt Count 488 H (150-450) k/uL Neutrophils # 8.0 H (1.3-7.7) k/uL Sodium 128 L (137-145) mmol/L Chloride 97 L (98-107) mmol/L BUN 25 H (9-20) mg/dL Glucose 328 H (74-99) mg/dL POC Glucose (mg/dL) 313 H (70-110) mg/dL Calcium 8.2 L (8.4-10.2) mg/dL ALT 59 H (4-49) U/L Alkaline Phosphatase 215 H (38-126) U/L Urine Glucose (UA) (Negative) Urine Opiates Screen (NotDetected) U Marijuana (THC) Screen (NotDetected) 01/19/24 Range/Units 13:29 WBC (3.8-10.6) k/uL RBC (4.30-5.90) m/uL Hgb (13.0-17.5) gm/dL MCV (80.0-100.0) fL RDW (11.5-15.5) % Plt Count (150-450) k/uL Neutrophils # (1.3-7.7) k/uL Sodium (137-145) mmol/L Chloride (98-107) mmol/L BUN (9-20) mg/dL Glucose (74-99) mg/dL POC Glucose (mg/dL) (70-110) mg/dL Calcium (8.4-10.2) mg/dL ALT (4-49) U/L Alkaline Phosphatase (38-126) U/L Urine Glucose (UA) 4+ H (Negative) Urine Opiates Screen Detected H (NotDetected) U Marijuana (THC) Screen Detected H (NotDetected) Assessment and Plan Assessment: Metastatic neck and tongue cancer Mets to the brain, left lung Leukocytosis, possibly reactive Hypovolemic hyponatremia Breakthrough seizure Microcytic anemia Uncontrolled type 2 diabetes mellitus with hyperglycemia There is redemonstration of the hyperdense right occipital lobe lesion measuring 2.1 cm with increasing surrounding vasogenic edema from prior exam. There is 3 mm leftward midline shift. Chest x-ray showed improvement of the right pleural effusion, ongoing volume loss Subpleural parenchymal opacity in the left hemothorax with a pleural cath in place ER staff spoke with neurology, no indication to transfer patient to outside facility Started on dexamethasone every 6 hours Upon examination, appeared the patient had a seizure but was able to recover without ativan Will add seizure precautions Ativan 2 mg every 2 hours as needed seizures Will restart home medications where appropriate PT OT evaluation No family at bedside, currently full code Patient would be appropriate for hospice given his progression, will need to discuss further with Chemotherapy is currently on hold Consult placed to neurology Bedside nursing swallow evaluation Continue Keppra daily IV Heparin subcu every 8 hours for DVT prophylaxis Neurochecks every 2 hours Admit to stepdown unit Pain control with dilaudid as needed
[2024-01-19 16:55] LABS: Allen Test Performed? Yes
[2024-01-19 16:56] LABS: ABG PH 7.16 (7.35-7.45)
[2024-01-19 16:57] LABS: ABG Base Excess -0.9 mmol/L; ABG HCO3 30 mmol/L (21-25); ABG PCO2 85 mmHg (35-45); ABG PO2 70 mmHg (83-108); ABG TCO2 33 mmol/L (19-24)
[2024-01-19] MEDS: ASPIRIN 325 MG TAB PO STA (17:32)
[2024-01-19 17:57] LABS: Glucose,Whole Blood 454 mg/dL (70-110)
[2024-01-19] MEDS: DEXAMETHASONE SOD PHOSPHATE 10 MG/ML 1 ML VIAL IVP SCH (19:22)
--- NOTE | 2024-01-19 19:29 | XR ---
EXAMINATION TYPE: XR chest 1V DATE OF EXAM: 01/19/2024 COMPARISON: 01/19/2024, earlier today CLINICAL INDICATION: Male, 63 years old with shortness of breath, history of Dyspnea; TECHNIQUE: Single frontal view of the chest is obtained. FINDINGS: Worsening pleural parenchymal opacification throughout the left hemithorax. Interstitial density thro ughout the right lung shows similar to slightly worsened appearance as well. Heart normal size. Devel opment of trace right effusion. Left basilar pleural catheter. IMPRESSION: 1. Worsening pleural-parenchymal opacification throughout the left hemithorax now with near complete white out. 2. Left basilar pleural catheter noted. 3. Interstitial density throughout the right lung is similar to slightly worsened as well. Developmen t of a trace right effusion. [facility], , 01/19/2024 7:27 PM
[2024-01-19] MEDS ORDERED: INSULIN REGULAR 100 UNIT/ML VIAL (IV) IV ONE (19:53)
--- NOTE | 2024-01-19 19:55 | P.CNPUL ---
History of Present Illness Consult date: 01/19/24 Chief complaint: Altered mentation History of present illness: This is a 64-year-old male patient was admitted to the intensive care unit for recurrent seizures. 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 Subsequently, he was lost to follow-up and he presented back to us with a large left upper lobe mass and I performed bronchoscopy on this patient back in August 2023 and the findings were consistent with squamous cell carcinoma. The PET scan from September 2023 showed left upper lobe mass, PET avid in addition to metastatic activity involving the mediastinum and the right supraclavicular and bilateral lymph node lymphadenopathy in addition to left inferior pleural space FDG uptake and metastatic mediastinal lymphadenopathy. The patient was started on systemic treatment including a combination of carboplatinum, Alimta and Keytruda. While taking his second cycle of treatment, on 12/15/2023, the patient was noted to being have increased shortness of breath. He was sent to the emergency department and a CT angiogram of the chest was done and the patient was found to have small segmental branch pulmonary embolism involving the right lower lobe. Minimal overall clot burden. There was new moderate to large left-sided effusion along with atelectatic collapse of the left lower lobe. New moderate right-sided pleural effusion with adjacent atelectasis. There was also pleural nodularity in the posterior left upper lobe, additional disease progression with new pericardial lymphadenopathy measuring up to 2.1 cm in size and there was also a large left upper lobe mass encasing the left hilum that was measuring 11.9 cm in size with metastatic mediastinal and hilar lymphadenopathy and the patient had shown some partial response as the patient was receiving systemic chemotherapy. The echocardiogram that was done at that time on 12/15/2023 showed preserved LV function, normal RV size and function. Venous Doppler of the lower extremity that was done on 12/16/2023 showed no evidence of any DVT. Noted, the patient had a Pleurx catheter insertion on 12/19/2023 into the left pleural space and the fluid cytology was essentially negative for carcinoma or malignancy. The patient was discharged home and anticoagulation with Eliquis. Readmitted to the hospital on 12/28/2023 with altered mentation. The patient had unresponsiveness and new onset seizures. MRI of the brain was done and the patient was found to have right pa rietal/occipital mass with vasogenic edema. The patient was started on Keppra and Decadron. Anticoagulation was stopped and the patient was given an IVC filter on 01/02/2024 and the patient was discharged home on 01/03/2024 and he was advised to continue Decadron 4 mg p.o. 3 times daily and Keppra 750 mg p.o. twice daily. The patient was also seen by radiation oncology. Received SBRT to his brain, a total of 3 sessions earlier this week. The patient came into the emergency department today with strokelike symptoms and left-sided weakness. The patient also had altered mentation. His last known normal was unclear but this was sometime yesterday night. The patient was experiencing left-sided weakness, facial droop and dysarthria. He also had developed a dilated left pupil which was noted few weeks back. CT scan of the brain was done in Emergency Department and the patient was found to have a 2 point centimeter lesion that had been enlarging compared to the previous CAT scan of the brain that was done on 12/28/2023. The patient had hyperdense right occipital lobe 2.1 cm lesion with increasing surrounding vasogenic edema and a 3 mm left shift from midline. The CTA of the brain was also done and it showed no evidence of dissection of the cervical or internal carotid arteries or vertebral arteries. No evidence of any high-grade stenosis intracranially. There was a enhancing right occipital lobe mass with surrounding vasogenic edema. In the emergency, the patient had also 2 episodes of seizures. The case was discussed with outside facilities regarding transfer and was found that there was no indication for this medical transfer. The patient was started on Decadron 6 mg IV every 6 hours and the patient was kept on Keppra 750 mg IV every 12 hours. He was admitted to the intensive care unit for further management. He seems to be quite obtunded at this point in time. Blood gas was also done in the ICU and the patient was found to have a pH of 7.16 with a pCO2 of 85 and a pO2 of 70 and this was done by the patient being in 60s of oxygen by nasal cannula. Ac cordingly, the patient was placed on a BiPAP. Chest x-ray has not been done yet. The white cell count is 11.5 with a hemoglobin 12.7 and platelet count of 488. BUN 25 L and 0.6 and a sodium levels at 128. Blood sugar is at 454. Normal UA. Urine drug screen is positive for marijuana and opiates. Review of Systems ROS unobtainable: due to mental status Past Medical History Past Medical History: Cancer, Diabetes Mellitus, Eye Disorder, Thyroid Disorder Additional Past Medical History / Comment(s): HX TONGUE AND NECK CANCER-CHEMO AND RADIATION-NO SURGERY. Squamous cell carcinoma of the lung, metastatic. Pulmonary embolism. History of left-sided pleural effusion post Pleurx cath eter insertion. History of IVC filter placement History of Any Multi-Drug Resistant Organisms: None Reported Past Surgical History: Orthopedic Surgery (Right ankle surgery) Additional Past Surgical History / Comment(s): eye surgery-BILAT GLAUCOMA. 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 AGO LT EYE Past Anesthesia/Blood Transfusion Reactions: No Reported Reaction Past Psychological History: No Psychological Hx Reported Smoking Status: Never smoker Past Alcohol Use History: None Reported Past Drug Use History: None Reported Additional Drug Use History / Comment(s): Remote history of marijuana use - Past Family History Mother Family Medical History: No Reported History Father Additional Family Medical History / Comment(s): EtOH abuse Medications and Allergies Home Medications Medication Instructions Recorded Confirmed Type Multivitamins, Thera [Multivitamin 1 tab PO DAILY 09/02/21 01/19/24 History (formulary)] Levothyroxine Sodium [Synthroid] 175 mcg PO DAILY 08/30/23 01/19/24 History Dorzolamide-Timol 2.23%/0.68% 1 drop BOTH EYES BID 12/16/23 01/19/24 History [Cosopt] HYDROcodone/APAP 10-325MG [[place] 1 tab PO Q6H PRN 12/16/23 01/19/24 History 10-325] Insulin Aspart [NovoLOG Flexpen] See Protocol SQ AC-TID 12/16/23 01/19/24 History Insulin Glargine,Hum.rec.anlog 16 units SQ HS 12/16/23 01/19/24 History [Lantus Solostar Pen] dexAMETHasone [Decadron] 4 mg PO TID 14 Days #42 tablet 01/03/24 01/19/24 Rx levETIRAcetam [Keppra] 750 mg PO BID 30 Days #60 tab 01/03/24 01/19/24 Rx Allergies Allergy/AdvReac Type Severity Reaction Status Date / Time No Known Allergies Allergy Verified 01/19/24 13:57 Physical Exam Vitals: Vital Signs Temp Pulse Resp BP Pulse Ox 01/19/24 17:00 97 F L 92 16 138/96 93 L 01/19/24 16:00 97.2 F L 98 14 139/92 93 L 01/19/24 15:41 100 18 139/95 93 L 01/19/24 15:30 99 14 136/91 92 L 01/19/24 15:07 100 9 L 168/108 90 L 01/19/24 15:00 100 9 L 168/108 90 L 01/19/24 14:00 110 H 16 187/98 93 L 01/19/24 13:02 112 H 18 196/37 93 L 01/19/24 12:59 114 H 18 194/126 92 L 01/19/24 12:51 110 H 18 189/122 98 01/19/24 12:26 98.6 F 102 H 18 184/117 96 Intake and Output 01/19/24 01/19/24 01/19/24 06:59 14:59 22:59 Other: Weight 77.7 kg GENERAL EXAM: Alert, 63-year-old male, diminished level of consciousness, currently on a BiPAP pressure of 12 over 6 cm of water HEAD: Normocephalic. EYES: Dilated left pupil NOSE: Clear with pink turbinates. THROAT: No erythema or exudates. NECK: No masses, no JVD. CHEST: No chest wall deformity. LUNGS: Equal air entry with bibasilar crackles, left greater than right, diminished left lung base. CVS: S1 and S2 normal with no audible murmur, regular rhythm. ABDOMEN: No hepatosplenomegaly, normal bowel sounds, no guarding or rigidity. SPINE: No scoliosis or deformity SKIN: No rashes CENTRAL NERVOUS SYSTEM: Left-sided weakness, dilated left pupil, free of any seizures. The patient opened his eyes upon stimulation. Remains quite obtunded EXTREMITIES: There is no peripheral edema. No clubbing, no cyanosis. Per ipheral pulses are intact. Results - Laboratory Findings CBC and BMP: 01/19/24 13:02 01/19/24 13:02 ABG ABG pH 7.16 (7.35-7.45) L* 01/19/24 16:44 ABG pCO2 85 mmHg (35-45) H* 01/19/24 16:44 ABG pO2 70 mmHg (83-108) L 01/19/24 16:44 ABG O2 Saturation 88.0 % (94-97) L 01/19/24 16:44 PT/INR, D-dimer PT 10.0 sec (10.0-12.5) 01/19/24 13:02 INR 0.9 (<1.2) 01/19/24 13:02 Abnormal lab findings: Abnormal Labs 01/19/24 01/19/24 01/19/24 12:58 13:02 13:02 WBC 11.5 H RBC 3.97 L Hgb 12.7 L MCV 101.3 H RDW 17.0 H Plt Count 488 H Neutrophils # 8.0 H ABG pH ABG pCO2 ABG pO2 ABG HCO3 ABG Total CO2 ABG O2 Saturation Sodium 128 L Chloride 97 L BUN 25 H Glucose 328 H POC Glucose (mg/dL) 313 H Calcium 8.2 L ALT 59 H Alkaline Phosphatase 215 H Urine Glucose (UA) Urine Opiates Screen U Marijuana (THC) Screen 01/19/24 01/19/24 01/19/24 13:29 16:44 17:55 WBC RBC Hgb MCV RDW Plt Count Neutrophils # ABG pH 7.16 L* ABG pCO2 85 H* ABG pO2 70 L ABG HCO3 30 H ABG Total CO2 33 H ABG O2 Saturation 88.0 L Sodium Chloride BUN Glucose POC Glucose (mg/dL) 454 H Calcium ALT Alkaline Phosphatase Urine Glucose (UA) 4+ H Urine Opiates Screen Detected H U Marijuana (THC) Screen Detected H - Diagnostic Findings Chest x-ray: image reviewed Assessment and Plan Plan: Seizures, likely a manifestation of WAF[employer] POLISHER metastases, maintained on Keppra on outpatient basis. The patient also has an enlarging right occipital brain lesion measuring 2.1 cm in size with surrounding edema and 3 mm leftward midline shift. Acute hypoxic/hypercapnic respiratory failure, currently on BiPAP and the patient is currently on a BiPAP pressure of 12 over 5 cm of water. Metastatic WAF[employer] POL[employer]ER lesion, right occipital, currently on Decadron, status post SBRT Left-sided weakness, rule out Anuj's paralysis following seizure. Rule out motor deficits related to metastatic brain lesion and vasogenic edema Metastatic squamous cell carcinoma of the lung versus metastatic from head and neck/tongue cancer from 2021, initiated on a combination of carboplatin Alimta and Keytruda on 12/06/2023 and the patient received only 1 cycle. History of tongue cancer Left upper lobe mass measuring 12 cm in size with extensive mediastinal lymphadenopathy consistent with metastatic disease Pulmonary embolism, small segmental, status post IVC filter placement History of Pleurx catheter insertion for a left-sided pleural effusion, pleural fluid cytology has been negative for malignancy, left lung is quite opacified due to a left upper lobe tumor, atelectasis and a left-sided pleural effusion. Diabetes mellitus with steroid-induced hyperglycemia Hypothyroidism Plan Continue BiPAP at a pressure of 12 over 5 cm of water and FiO2 of 40% Repeat the blood gas while the patient being on a BiPAP Drain the left hemithorax through the Pleurx catheter Keep the patient n.p.o. Monitor mental status Continue IV Decadron 6 mg every 6 hours Continue IV Keppra Blood sugar management of the patient may need insulin drip for blood sugar control Patient has an IVC filter placement No anticoagulants for now IV fluids normal saline at rate of 75 cc an hour IV Protonix Consult neurology consult radiation oncology Consult hematology oncology extremely poor prognosis based on above, current CODE STATUS is full. Will strongly support changing his CODE STATUS to DNR/DNI. Will have further discussion with the . Critical care evaluation that was done more than 30 minutes. . Time with Patient: Greater than 30
[2024-01-19 19:57] LABS: Glucose,Whole Blood 408 mg/dL (70-110)
[2024-01-19] MEDS ORDERED: DEXTROSE 50% SYRINGE 50 ML IVP PRN (20:02)
[2024-01-19 20:03] LABS: ABG Base Excess 2.1 mmol/L; ABG HCO3 31 mmol/L (21-25); ABG Oxygen Saturation 97.7 % (94-97); ABG PH 7.25 (7.35-7.45); ABG PO2 106 mmHg (83-108); ABG TCO2 33 mmol/L (19-24); Allen Test Performed? Yes
[2024-01-19 20:05] LABS: ABG PCO2 71 mmHg (35-45)
[2024-01-19] MEDS ORDERED: SODIUM CHLORIDE 0.9% IVPB SCH (21:00)
[2024-01-19] MEDS ORDERED: LEVETIRACETAM IVPB SCH (21:00)
[2024-01-19 21:08] LABS: Glucose,Whole Blood 416 mg/dL (70-110)
[2024-01-19] MEDS: INSULIN REGULAR 100 UNIT in SODIUM CHLORIDE 0.9% 100 ML IV SCH (21:47)
[2024-01-19] MEDS: levETIRAcetam IV 500 MG/5 ML VIAL IV SCH (21:48)
[2024-01-19] MEDS: DORZOLAMIDE-TIMOLOL 2.23%/0.68 10ML BTL BOTH EYES SCH (21:49)
[2024-01-19 22:00] LABS: Glucose,Whole Blood 409 mg/dL (70-110)
[2024-01-19] MEDS: INSULIN DETEMIR (LEVEMIR) 100 UNIT/ML SYR SQ SCH (22:20)
[2024-01-19 23:00] LABS: Glucose,Whole Blood 395 mg/dL (70-110)
[2024-01-20 00:02] LABS: Glucose,Whole Blood 280 mg/dL (70-110)
[2024-01-20 01:02] LABS: Glucose,Whole Blood 191 mg/dL (70-110)
[2024-01-20 02:06] LABS: Glucose,Whole Blood 97 mg/dL (70-110)
[2024-01-20 03:03] LABS: Glucose,Whole Blood 62 mg/dL (70-110)
[2024-01-20] MEDS: DEXTROSE 50% SYRINGE 50 ML IVP PRN (03:07)
[2024-01-20 03:31] LABS: Glucose,Whole Blood 97 mg/dL (70-110)
[2024-01-20 04:12] LABS: Glucose,Whole Blood 73 mg/dL (70-110)
[2024-01-20 04:36] LABS: Glucose,Whole Blood 98 mg/dL (70-110)
[2024-01-20 04:37] LABS: ABG Base Excess 5.2 mmol/L; ABG HCO3 33 mmol/L (21-25); ABG Oxygen Saturation 97.7 % (94-97); ABG PCO2 63 mmHg (35-45); ABG PH 7.33 (7.35-7.45); ABG PO2 124 mmHg (83-108); ABG TCO2 35 mmol/L (19-24); Allen Test Performed? Yes
[2024-01-20 05:03] LABS: Glucose,Whole Blood 85 mg/dL (70-110)
[2024-01-20 06:13] LABS: Glucose,Whole Blood 59 mg/dL (70-110)
[2024-01-20 06:42] LABS: Glucose,Whole Blood 138 mg/dL (70-110)
[2024-01-20] MEDS: LEVOTHYROXINE 88 MCG TAB PO SCH (06:42)
[2024-01-20 06:53] LABS: Glucose,Whole Blood 131 mg/dL (70-110)
--- NOTE | 2024-01-20 07:14 | XR ---
EXAMINATION TYPE: XR chest 1V portable DATE OF EXAM: 01/20/2024 COMPARISON: 01/19/2024 CLINICAL INDICATION: Male, 63 years old with history of Previous CXR left lung wan out; TECHNIQUE: Single frontal view of the chest is obtained. FINDINGS: There is diffuse opacification of the left hemithorax with slight interval improvement with small foc al area of aeration in the left lower lobe. There is vague opacification in the right midlung which i s not appreciated on the prior study. There is a tiny right pleural effusion. There is no pneumothora x. IMPRESSION: No significant interval change in the acute cardiopulmonary process, left much greater than right. [facility], , 01/20/2024 7:12 AM
[2024-01-20 07:20] LABS: Anisocytosis Slight; Basophils % (A) 0 %; Eosinophils % (A) 0 %; HCT 35.1 % (39.0-53.0); HGB 10.9 gm/dL (13.0-17.5); Hypochromasia Marked; Lymphocytes # (A) 0.4 k/uL (1.0-4.8); Lymphocytes % (A) 5 %; MCHC 30.9 g/dL (31.0-37.0); MCV 103.2 fL (80.0-100.0); Macrocytosis Moderate; Mean Platelet Volume 6.5; Monocytes # (A) 0.3 k/uL (0-1.0); Monocytes % (A) 4 %; Neutrophils # (A) 8.1 k/uL (1.3-7.7); Neutrophils % (A) 91 %; Platelet Count 378 k/uL (150-450); RDW 16.8 % (11.5-15.5); WBC 8.9 k/uL (3.8-10.6)
[2024-01-20] MEDS ORDERED: DEXTROSE 50% SYRINGE 50 ML IVP PRN (07:20)
[2024-01-20 07:33] LABS: African American GFR (CKD) >90 (>60 ml/min/1.73 sqM); Anion Gap 2 mmol/L; Blood Urea Nitrogen 19 mg/dL (9-20); Calcium 6.9 mg/dL (8.4-10.2); Carbon Dioxide 26 mmol/L (22-30); Chloride 105 mmol/L (98-107); Glucose 107 mg/dL (74-99); Magnesium 1.3 mg/dL (1.6-2.3); Non-African American GFR(CKD) >90 (>60 ml/min/1.73 sqM); Phosphorus 3.8 mg/dL (2.5-4.5); Potassium 4.3 mmol/L (3.5-5.1); Sodium 133 mmol/L (137-145)
--- NOTE | 2024-01-20 07:51 | P.CNNES ---
History of Present Illness Consult date: 01/20/24 Reason for Consult: History of right occipital metastasis with increased edema and left-sided w Chief complaint: "They weaned my Decadron about a month ago." History of Present Illness: Mr. 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 He also has diabetes, and thyroid disorder. Patient was admitted to [facility] on January 19, 2024 after he had been complaining of left-sided weakness and was noted to have altered mental status. Of note he has a left occipital mass we have been diagnosed and he was formally taking Decadron 4 mg 4 times daily. Approximate a month ago he was weaning down by his doctor in preparation for radiotherapy. He was weaned down to 4 mg daily on the dexamethasone and his last dose was on Thanksgiving. The patient apparently woke up on yesterday morning and noted some left-sided weakness and was also been noted to have slow responsiveness. He has a dilated left pupil which has been present for years and does not represent any complication from his current metastasis. He denies any seizures but was loaded with Keppra 1000 mg in the emergency room. I initially came in as a code stroke and his NIH was reported as 12. However his noncontrast CT of this scan of the head revealed increased density mass in the right occipital lobe 2.1 cm with some surrounding vasogenic edema and 3 mm of [id number] shift. He was given a 20 mg Decadron bolus and is currently maintained on 6 mg every 6 hours. This morning the patient is somewhat fatigued however he is arousable and communicative with some mild to moderate dysarthria. Neurology was consulted for further management recommendations. Review of Systems Review of systems was limited secondary to patient's mental status as well as the fact he is on the BiPAP. Nursing reports that he was complaining of a headache yesterday. 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 Squamous cell carcinoma of the lung, metastatic. Pulmonary embolism. History of left-sided pleural effusion post Pleurx catheter insertion. History of IVC filter placement History of Any Multi-Drug Resistant Organisms: None Reported Past Surgical History: Orthopedic Surgery (Right ankle surgery) Additional Past Surgical History / Comment(s): eye surgery-BILAT GLAUCOMA. 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 AGO [facility] Past Anesthesia/Blood Transfusion Reactions: No Reported Reaction Past Psychological History: No Psychological Hx Reported Smoking Status: Never smoker Past Alcohol Use History: None Reported Past Drug Use History: None Reported Additional Drug Use History / Comment(s): Remote history of marijuana use - Past Family History Mother Family Medical History: No Reported History Father Additional Family Medical History / Comment(s): EtOH abuse Medications and Allergies Home Medications Medication Instructions Recorded Confirmed Type Multivitamins, Thera [Multivitamin 1 tab PO DAILY 09/02/21 01/19/24 History (formulary)] Levothyroxine Sodium [Synthroid] 175 mcg PO DAILY 08/30/23 01/19/24 History Dorzolamide-Timol 2.23%/0.68% 1 drop BOTH EYES BID 12/16/23 01/19/24 History [Cosopt] HYDROcodone/APAP 10-325MG [[place] 1 tab PO Q6H PRN 12/16/23 01/19/24 History 10-325] Insulin Aspart [NovoLOG Flexpen] See Protocol SQ AC-TID 12/16/23 01/19/24 History Insulin Glargine,Hum.rec.anlog 16 units SQ HS 12/16/23 01/19/24 History [Lantus Solostar Pen] dexAMETHasone [Decadron] 4 mg PO TID 14 Days #42 tablet 01/03/24 01/19/24 Rx levETIRAcetam [Keppra] 750 mg PO BID 30 Days #60 tab 01/03/24 01/19/24 Rx Allergies Allergy/AdvReac Type Severity Reaction Status Date / Time No Known Allergies Allergy Verified 01/19/24 13:57 Physical Examination - Vital Signs Vital Signs: Vital Signs Temp Pulse Resp BP Pulse Ox FiO2 01/20/24 07:00 78 35 H 133/87 99 01/20/24 06:30 78 12 128/93 97 01/20/24 06:02 76 24 128/93 97 01/20/24 06:00 76 18 134/98 97 01/20/24 05:30 78 24 131/96 98 01/20/24 05:00 80 33 H 138/93 97 01/20/24 04:39 40 01/20/24 04:30 80 40 H 139/94 97 01/20/24 04:02 97.9 F 80 36 H 138/93 97 01/20/24 04:00 97.9 F 80 34 H 139/94 97 40 01/20/24 03:30 78 21 138/96 97 01/20/24 03:00 82 17 138/96 97 01/20/24 02:30 81 24 127/94 96 01/20/24 02:02 82 24 127/94 97 01/20/24 02:00 80 22 133/94 96 01/20/24 01:30 86 24 138/100 97 01/20/24 01:00 85 22 139/99 96 01/20/24 00:30 85 24 142/103 98 01/20/24 00:22 40 01/20/24 00:02 97.6 F 84 24 139/99 96 01/20/24 00:00 97.6 F 89 24 135/101 98 40 01/19/24 23:30 86 18 145/98 98 01/19/24 23:01 89 17 145/98 99 01/19/24 23:00 88 16 128/99 98 01/19/24 22:30 101 H 20 135/99 97 01/19/24 22:02 101 H 24 135/99 99 01/19/24 22:00 101 H 29 H 132/99 96 01/19/24 21:30 95 20 132/98 96 01/19/24 21:00 93 22 140/95 97 01/19/24 20:30 97 16 132/94 97 01/19/24 20:05 40 01/19/24 20:02 97.6 F 98 24 132/94 97 01/19/24 20:00 97.6 F 96 20 135/96 96 40 01/19/24 19:45 95 27 H 135/96 95 40 01/19/24 19:30 98.4 F 96 23 01/19/24 19:10 96 18 137/98 93 L 01/19/24 19:00 98 24 137/95 94 L 01/19/24 18:50 96 25 H 137/95 94 L 01/19/24 18:40 97 18 137/95 92 L 01/19/24 18:30 98 21 130/97 91 L 01/19/24 18:26 40 01/19/24 18:20 96 25 H 130/97 94 L 40 01/19/24 18:11 20 01/19/24 18:10 97 30 H 130/97 92 L 01/19/24 18:00 96 29 H 130/97 92 L 01/19/24 17:53 94 32 H 01/19/24 17:00 97 F L 92 16 138/96 93 L 01/19/24 16:00 97.2 F L 98 14 139/92 93 L 01/19/24 15:41 100 18 139/95 93 L 01/19/24 15:30 99 14 136/91 92 L 01/19/24 15:07 100 9 L 168/108 90 L 01/19/24 15:00 100 9 L 168/108 90 L 01/19/24 14:00 110 H 16 187/98 93 L 01/19/24 13:02 112 H 18 196/37 93 L 01/19/24 12:59 114 H 18 194/126 92 L 01/19/24 12:51 110 H 18 189/122 98 01/19/24 12:26 98.6 F 102 H 18 184/117 96 Intake and Output 01/19/24 01/20/24 01/20/24 22:59 06:59 14:59 Intake Total 225 629.200 75 Output Total 750 750 400 Balance -525 -120.800 -325 Intake: Intake, IV Titration 225 629.200 75 Amount Insulin Regular 100 unit 29.200 In Sodium Chloride 0.9% 100 ml @ Titrate IV .Q0M [facility] Rx#:[id number] Sodium Chloride 0.9% 1, 225 600 75 000 ml @ 75 mls/hr IV . [id number] [facility] Rx#:[id number] Output: Drainage 400 Left Chest 400 Urine 750 750 0 Other: Voiding Method External Catheter External Catheter Weight 77.7 kg 79.1 kg The patient was mildly to moderately fatigued however he was arousable and would speak to the examiner. However he had some moderate to severe dysarthria. He does not exhibit evidence of aphasia. - Constitutional General appearance: average body habitus - EENT EENT: other (The patient has a dilated left pupil at 3 to 4 mm which is fixed. This is chronic in nature.) - Respiratory Respiratory: chest non-tender, lungs clear, normal breath sounds, no respiratory distress - Cardiovascular Cardiovascular: regular rate, no murmurs - Gastrointestinal Gastrointestinal: normoactive bowel sounds, non-tender, tender - Integumentary Integumentary: normal - Neurologic Cranial nerve examination: face symmetric, tongue midline, other (The patient again has a fixed and dilated left pupil at 3 to 4 mm which is chronic in nature. He does appear to exhibit likely hemianopia to his left side. He does not prefer to look to his left side. His face appears symmetric on smiling.) Speech examination: other (Patient exhibits moderate to severe dysarthria. However he is able to name objects and follow simple commands. I do not believe he has evidence of aphasia.) Detailed motor examination: other (The patient had roughly 4+ to 5 - strength with his right upper extremity; however, his left upper extremity was flaccid. Right lower extremity could raise with strength of at least 3 out of 5. However left lower extremity had some minimal movement of the toes possibly 1 out of 5 strength.) Detailed sensory examination: intact Reflex and gait examination: other (Patient had trace to 1+ reflexes in the bilateral arms and legs. I could not detect any upgoing plantar response.) Results Noncontrast CT of the head from January 18 revealed right occipital lobe 2.1 cm lesion with increased density there was significant surrounding vasogenic edema as well as 3 mm of nwdkg-[id number]-[id number] shift. CT angiogram revealed again the right occipital lobe mass and some left upper lobe mass with extension to the mediastinum consistent with patient's history of total neck cancer. Chest x-ray from January 18 revealed increased opacities in the left hemithorax. Other pertinent laboratories include decreased sodium at 128 thyroid-stimulating hormone significantly elevated at 33.8 with free T4 of 1.02 and T3 of 1.00. B12 level was 1695. Urinalysis revealed only 4+ glucose. Urine drug screen was positive for opiates as well as THC. - Laboratory Findings CBC and BMP: 01/20/24 07:05 01/20/24 07:05 Abnormal Lab Findings: Abnormal Labs 01/19/24 01/19/24 01/19/24 12:58 13:02 13:02 WBC 11.5 H RBC 3.97 L Hgb 12.7 L Hct MCV 101.3 H MCHC RDW 17.0 H Plt Count 488 H Neutrophils # 8.0 H Lymphocytes # ABG pH ABG pCO2 ABG pO2 ABG HCO3 ABG Total CO2 ABG O2 Saturation Hemoglobin Sodium 128 L Chloride 97 L BUN 25 H Creatinine Glucose 328 H POC Glucose (mg/dL) 313 H Hemoglobin A1c Calcium 8.2 L Magnesium ALT 59 H Alkaline Phosphatase 215 H Urine Glucose (UA) Urine Opiates Screen U Marijuana (THC) Screen 01/19/24 01/19/24 01/19/24 13:02 13:29 16:44 WBC RBC Hgb Hct MCV MCHC RDW Plt Count Neutrophils # Lymphocytes # ABG pH 7.16 L* ABG pCO2 85 H* ABG pO2 70 L ABG HCO3 30 H ABG Total CO2 33 H ABG O2 Saturation 88.0 L Hemoglobin Sodium Chloride BUN Creatinine Glucose POC Glucose (mg/dL) Hemoglobin A1c 8.2 H Calcium Magnesium ALT Alkaline Phosphatase Urine Glucose (UA) 4+ H Urine Opiates Screen Detected H U Marijuana (THC) Screen Detected H 01/19/24 01/19/24 01/19/24 17:55 19:55 19:58 WBC RBC Hgb Hct MCV MCHC RDW Plt Count Neutrophils # Lymphocytes # ABG pH 7.25 L ABG pCO2 71 H* ABG pO2 ABG HCO3 31 H ABG Total CO2 33 H ABG O2 Saturation 97.7 H Hemoglobin 12.7 L Sodium Chloride BUN Creatinine Glucose POC Glucose (mg/dL) 454 H 408 H Hemoglobin A1c Calcium Magnesium ALT Alkaline Phosphatase Urine Glucose (UA) Urine Opiates Screen U Marijuana (THC) Screen 01/19/24 01/19/24 01/19/24 21:06 21:59 22:58 WBC RBC Hgb Hct MCV MCHC RDW Plt Count Neutrophils # Lymphocytes # ABG pH ABG pCO2 ABG pO2 ABG HCO3 ABG Total CO2 ABG O2 Saturation Hemoglobin Sodium Chloride BUN Creatinine Glucose POC Glucose (mg/dL) 416 H 409 H 395 H Hemoglobin A1c Calcium Magnesium ALT Alkaline Phosphatase Urine Glucose (UA) Urine Opiates Screen U Marijuana (THC) Screen 01/20/24 01/20/24 01/20/24 00:01 01:00 03:02 WBC RBC Hgb Hct MCV MCHC RDW Plt Count Neutrophils # Lymphocytes # ABG pH ABG pCO2 ABG pO2 ABG HCO3 ABG Total CO2 ABG O2 Saturation Hemoglobin Sodium Chloride BUN Creatinine Glucose POC Glucose (mg/dL) 280 H 191 H 62 L Hemoglobin A1c Calcium Magnesium ALT Alkaline Phosphatase Urine Glucose (UA) Urine Opiates Screen U Marijuana (THC) Screen 01/20/24 01/20/24 01/20/24 04:33 06:12 06:40 WBC RBC Hgb Hct MCV MCHC RDW Plt Count Neutrophils # Lymphocytes # ABG pH 7.33 L ABG pCO2 63 H ABG pO2 124 H ABG HCO3 33 H ABG Total CO2 35 H ABG O2 Saturation 97.7 H Hemoglobin 12.3 L Sodium Chloride BUN Creatinine Glucose POC Glucose (mg/dL) 59 L 138 H Hemoglobin A1c Calcium Magnesium ALT Alkaline Phosphatase Urine Glucose (UA) Urine Opiates Screen U Marijuana (THC) Screen 01/20/24 01/20/24 01/20/24 06:53 07:05 07:05 WBC RBC 3.40 L Hgb 10.9 L Hct 35.1 L MCV 103.2 H MCHC 30.9 L RDW 16.8 H Plt Count Neutrophils # 8.1 H Lymphocytes # 0.4 L ABG pH ABG pCO2 ABG pO2 ABG HCO3 ABG Total CO2 ABG O2 Saturation Hemoglobin Sodium 133 L Chloride BUN Creatinine 0.49 L Glucose 107 H POC Glucose (mg/dL) 131 H Hemoglobin A1c Calcium 6.9 L Magnesium 1.3 L ALT Alkaline Phosphatase Urine Glucose (UA) Urine Opiates Screen U Marijuana (THC) Screen Assessment and Plan Assessment: Mr. 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 He had been recently decreased out his dexamethasone and has had increasing edema. He has now flaccid on his left arm and exhibits increased weakness on his left side with a left homonymous hemianopia. This is likely due to the increased edema surrounding his mass. Plan: 1. The patient was given a 20 mg dexamethasone bolus in the emergency room and is being continued on 6 mg every 6 hours for vasogenic edema surrounding his right right occipital lobe mass. 2. I have not elected to continue him on antiepileptics at this time as he has not had a notable noted seizure. However we will continue for this by neurology. 3. We will defer on an MRI at this time as the patient is currently on BiPAP and the CT scan appears to show of his metastasis with surrounding edema. He may need serial CT scans to observe this and will look for decrease in the edema. 4. Neurology will continue to follow this patient in house and make further recommendations as needed. Time with Patient: Less than 30
[2024-01-20] MEDS: MAGNESIUM SULFATE-D5W PMX 1 GM in DEXTROSE/WATER 1 100ML.BAG IVPB SCH (08:07)
[2024-01-20 08:15] LABS: Glucose,Whole Blood 122 mg/dL (70-110)
[2024-01-20] MEDS: INSULIN ASPART (NovoLOG) 100 UNIT/ML VIAL SQ SCH ×2 (08:15→16:53)
--- NOTE | 2024-01-20 09:27 | P.PN ---
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 This was treated with radiosurgery, his most recent treatment on Monday01/16/24. The patient is unable to provide history. According to the EMR, he presented wi th left sided weakness and a left hemianopsia. Nursing reports possible seizure. Currently, he is on Bipap and not responding. CT from 01/19/24 redemonstrated the lesion, but there has been increasing edema with 3 mm midline shift. Objective - Vital Signs Vital signs: Vital Signs Temp 98.7 F 01/20/24 08:00 Pulse 75 01/20/24 09:00 Resp 21 01/20/24 09:00 BP 130/82 01/20/24 09:00 Pulse Ox 96 01/20/24 09:00 FiO2 40 01/20/24 08:16 Intake & Output 01/19/24 01/20/24 01/20/24 18:59 06:59 18:59 Intake Total 854.200 325 Output Total 300 1200 1020 Balance -300 -345.800 -695 Weight 77.7 kg 79.1 kg Intake: IV 250 Magnesium Sulfate-D5w Pmx 100 1 gm In Dextrose/Water 1 100ml.bag @ 100 mls/hr IVPB Q1H [facility] Rx#: [id number] Sodium Chloride 0.9% 1, 150 000 ml @ 75 mls/hr IV . [id number] [facility] Rx#:[id number] Intake, IV Titration 854.200 75 Amount Insulin Regular 100 unit 29.200 In Sodium Chloride 0.9% 100 ml @ Titrate IV .Q0M [facility] Rx#:[id number] Sodium Chloride 0.9% 1, 825 75 000 ml @ 75 mls/hr IV . [id number] [facility] Rx#:[id number] Output: Drainage 420 Left Chest 420 Urine 300 1200 600 Other: Voiding Method External Catheter External Catheter - Constitutional General appearance: Present: disheveled - Neck Neck: Absent: lymphadenopathy - Respiratory Respiratory: right: CTA, left: diminished - Cardiovascular Rhythm: regular - Gastrointestinal General gastrointestinal: Absent: distended - Integumentary Integumentary: Present: pale - Labs CBC & Chem 7: 01/20/24 07:05 01/20/24 07:05 Labs: Abnormal Lab Results - Last 24 Hours (Table) 01/19/24 01/19/24 01/19/24 Range/Units 12:58 13:02 13:02 WBC 11.5 H (3.8-10.6) k/uL RBC 3.97 L (4.30-5.90) m/uL Hgb 12.7 L (13.0-17.5) gm/dL Hct (39.0-53.0) % MCV 101.3 H (80.0-100.0) fL MCHC (31.0-37.0) g/dL RDW 17.0 H (11.5-15.5) % Plt Count 488 H (150-450) k/uL Neutrophils # 8.0 H (1.3-7.7) k/uL Lymphocytes # (1.0-4.8) k/uL ABG pH (7.35-7.45) ABG pCO2 (35-45) mmHg ABG pO2 (83-108) mmHg ABG HCO3 (21-25) mmol/L ABG Total CO2 (19-24) mmol/L ABG O2 Saturation (94-97) % Hemoglobin (13.0-17.5) gm/dL Sodium 128 L (137-145) mmol/L Chloride 97 L (98-107) mmol/L BUN 25 H (9-20) mg/dL Creatinine (0.66-1.25) mg/dL Glucose 328 H (74-99) mg/dL POC Glucose (mg/dL) 313 H (70-110) mg/dL Hemoglobin A1c (<=6.0) % Calcium 8.2 L (8.4-10.2) mg/dL Magnesium (1.6-2.3) mg/dL ALT 59 H (4-49) U/L Alkaline Phosphatase 215 H (38-126) U/L Urine Glucose (UA) (Negative) Urine Opiates Screen (NotDetected) U Marijuana (THC) Screen (NotDetected) 01/19/24 01/19/24 01/19/24 Range/Units 13:02 13:29 16:44 WBC (3.8-10.6) k/uL RBC (4.30-5.90) m/uL Hgb (13.0-17.5) gm/dL Hct (39.0-53.0) % MCV (80.0-100.0) fL MCHC (31.0-37.0) g/dL RDW (11.5-15.5) % Plt Count (150-450) k/uL Neutrophils # (1.3-7.7) k/uL Lymphocytes # (1.0-4.8) k/uL ABG pH 7.16 L* (7.35-7.45) ABG pCO2 85 H* (35-45) mmHg ABG pO2 70 L (83-108) mmHg ABG HCO3 30 H (21-25) mmol/L ABG Total CO2 33 H (19-24) mmol/L ABG O2 Saturation 88.0 L (94-97) % Hemoglobin (13.0-17.5) gm/dL Sodium (137-145) mmol/L Chloride (98-107) mmol/L BUN (9-20) mg/dL Creatinine (0.66-1.25) mg/dL Glucose (74-99) mg/dL POC Glucose (mg/dL) (70-110) mg/dL Hemoglobin A1c 8.2 H (<=6.0) % Calcium (8.4-10.2) mg/dL Magnesium (1.6-2.3) mg/dL ALT (4-49) U/L Alkaline Phosphatase (38-126) U/L Urine Glucose (UA) 4+ H (Negative) Urine Opiates Screen Detected H (NotDetected) U Marijuana (THC) Screen Detected H (NotDetected) 01/19/24 01/19/24 01/19/24 Range/Units 17:55 19:55 19:58 WBC (3.8-10.6) k/uL RBC (4.30-5.90) m/uL Hgb (13.0-17.5) gm/dL Hct (39.0-53.0) % MCV (80.0-100.0) fL MCHC (31.0-37.0) g/dL RDW (11.5-15.5) % Plt Count (150-450) k/uL Neutrophils # (1.3-7.7) k/uL Lymphocytes # (1.0-4.8) k/uL ABG pH 7.25 L (7.35-7.45) ABG pCO2 71 H* (35-45) mmHg ABG pO2 (83-108) mmHg ABG HCO3 31 H (21-25) mmol/L ABG Total CO2 33 H (19-24) mmol/L ABG O2 Saturation 97.7 H (94-97) % Hemoglobin 12.7 L (13.0-17.5) gm/dL Sodium (137-145) mmol/L Chloride (98-107) mmol/L BUN (9-20) mg/dL Creatinine (0.66-1.25) mg/dL Glucose (74-99) mg/dL POC Glucose (mg/dL) 454 H 408 H (70-110) mg/dL Hemoglobin A1c (<=6.0) % Calcium (8.4-10.2) mg/dL Magnesium (1.6-2.3) mg/dL ALT (4-49) U/L Alkaline Phosphatase (38-126) U/L Urine Glucose (UA) (Negative) Urine Opiates Screen (NotDetected) U Marijuana (THC) Screen (NotDetected) 01/19/24 01/19/24 01/19/24 Range/Units 21:06 21:59 22:58 WBC (3.8-10.6) k/uL RBC (4.30-5.90) m/uL Hgb (13.0-17.5) gm/dL Hct (39.0-53.0) % MCV (80.0-100.0) fL MCHC (31.0-37.0) g/dL RDW (11.5-15.5) % Plt Count (150-450) k/uL Neutrophils # (1.3-7.7) k/uL Lymphocytes # (1.0-4.8) k/uL ABG pH (7.35-7.45) ABG pCO2 (35-45) mmHg ABG pO2 (83-108) mmHg ABG HCO3 (21-25) mmol/L ABG Total CO2 (19-24) mmol/L ABG O2 Saturation (94-97) % Hemoglobin (13.0-17.5) gm/dL Sodium (137-145) mmol/L Chloride (98-107) mmol/L BUN (9-20) mg/dL Creatinine (0.66-1.25) mg/dL Glucose (74-99) mg/dL POC Glucose (mg/dL) 416 H 409 H 395 H (70-110) mg/dL Hemoglobin A1c (<=6.0) % Calcium (8.4-10.2) mg/dL Magnesium (1.6-2.3) mg/dL ALT (4-49) U/L Alkaline Phosphatase (38-126) U/L Urine Glucose (UA) (Negative) Urine Opiates Screen (NotDetected) U Marijuana (THC) Screen (NotDetected) 01/20/24 01/20/24 01/20/24 Range/Units 00:01 01:00 03:02 WBC (3.8-10.6) k/uL RBC (4.30-5.90) m/uL Hgb (13.0-17.5) gm/dL Hct (39.0-53.0) % MCV (80.0-100.0) fL MCHC (31.0-37.0) g/dL RDW (11.5-15.5) % Plt Count (150-450) k/uL Neutrophils # (1.3-7.7) k/uL Lymphocytes # (1.0-4.8) k/uL ABG pH (7.35-7.45) ABG pCO2 (35-45) mmHg ABG pO2 (83-108) mmHg ABG HCO3 (21-25) mmol/L ABG Total CO2 (19-24) mmol/L ABG O2 Saturation (94-97) % Hemoglobin (13.0-17.5) gm/dL Sodium (137-145) mmol/L Chloride (98-107) mmol/L BUN (9-20) mg/dL Creatinine (0.66-1.25) mg/dL Glucose (74-99) mg/dL POC Glucose (mg/dL) 280 H 191 H 62 L (70-110) mg/dL Hemoglobin A1c (<=6.0) % Calcium (8.4-10.2) mg/dL Magnesium (1.6-2.3) mg/dL ALT (4-49) U/L Alkaline Phosphatase (38-126) U/L Urine Glucose (UA) (Negative) Urine Opiates Screen (NotDetected) U Marijuana (THC) Screen (NotDetected) 01/20/24 01/20/24 01/20/24 Range/Units 04:33 06:12 06:40 WBC (3.8-10.6) k/uL RBC (4.30-5.90) m/uL Hgb (13.0-17.5) gm/dL Hct (39.0-53.0) % MCV (80.0-100.0) fL MCHC (31.0-37.0) g/dL RDW (11.5-15.5) % Plt Count (150-450) k/uL Neutrophils # (1.3-7.7) k/uL Lymphocytes # (1.0-4.8) k/uL ABG pH 7.33 L (7.35-7.45) ABG pCO2 63 H (35-45) mmHg ABG pO2 124 H (83-108) mmHg ABG HCO3 33 H (21-25) mmol/L ABG Total CO2 35 H (19-24) mmol/L ABG O2 Saturation 97.7 H (94-97) % Hemoglobin 12.3 L (13.0-17.5) gm/dL Sodium (137-145) mmol/L Chloride (98-107) mmol/L BUN (9-20) mg/dL Creatinine (0.66-1.25) mg/dL Glucose (74-99) mg/dL POC Glucose (mg/dL) 59 L 138 H (70-110) mg/dL Hemoglobin A1c (<=6.0) % Calcium (8.4-10.2) mg/dL Magnesium (1.6-2.3) mg/dL ALT (4-49) U/L Alkaline Phosphatase (38-126) U/L Urine Glucose (UA) (Negative) Urine Opiates Screen (NotDetected) U Marijuana (THC) Screen (NotDetected) 01/20/24 01/20/24 01/20/24 Range/Units 06:53 07:05 07:05 WBC (3.8-10.6) k/uL RBC 3.40 L (4.30-5.90) m/uL Hgb 10.9 L (13.0-17.5) gm/dL Hct 35.1 L (39.0-53.0) % MCV 103.2 H (80.0-100.0) fL MCHC 30.9 L (31.0-37.0) g/dL RDW 16.8 H (11.5-15.5) % Plt Count (150-450) k/uL Neutrophils # 8.1 H (1.3-7.7) k/uL Lymphocytes # 0.4 L (1.0-4.8) k/uL ABG pH (7.35-7.45) ABG pCO2 (35-45) mmHg ABG pO2 (83-108) mmHg ABG HCO3 (21-25) mmol/L ABG Total CO2 (19-24) mmol/L ABG O2 Saturation (94-97) % Hemoglobin (13.0-17.5) gm/dL Sodium 133 L (137-145) mmol/L Chloride (98-107) mmol/L BUN (9-20) mg/dL Creatinine 0.49 L (0.66-1.25) mg/dL Glucose 107 H (74-99) mg/dL POC Glucose (mg/dL) 131 H (70-110) mg/dL Hemoglobin A1c (<=6.0) % Calcium 6.9 L (8.4-10.2) mg/dL Magnesium 1.3 L (1.6-2.3) mg/dL ALT (4-49) U/L Alkaline Phosphatase (38-126) U/L Urine Glucose (UA) (Negative) Urine Opiates Screen (NotDetected) U Marijuana (THC) Screen (NotDetected) 01/20/24 Range/Units 08:14 WBC (3.8-10.6) k/uL RBC (4.30-5.90) m/uL Hgb (13.0-17.5) gm/dL Hct (39.0-53.0) % MCV (80.0-100.0) fL MCHC (31.0-37.0) g/dL RDW (11.5-15.5) % Plt Count (150-450) k/uL Neutrophils # (1.3-7.7) k/uL Lymphocytes # (1.0-4.8) k/uL ABG pH (7.35-7.45) ABG pCO2 (35-45) mmHg ABG pO2 (83-108) mmHg ABG HCO3 (21-25) mmol/L ABG Total CO2 (19-24) mmol/L ABG O2 Saturation (94-97) % Hemoglobin (13.0-17.5) gm/dL Sodium (137-145) mmol/L Chloride (98-107) mmol/L BUN (9-20) mg/dL Creatinine (0.66-1.25) mg/dL Glucose (74-99) mg/dL POC Glucose (mg/dL) 122 H (70-110) mg/dL Hemoglobin A1c (<=6.0) % Calcium (8.4-10.2) mg/dL Magnesium (1.6-2.3) mg/dL ALT (4-49) U/L Alkaline Phosphatase (38-126) U/L Urine Glucose (UA) (Negative) Urine Opiates Screen (NotDetected) U Marijuana (THC) Screen (NotDetected) - Imaging and Cardiology CT Scan - head: report reviewed, image reviewed Assessment and Plan Assessment: The patient is a 63 year old male with a 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 This was treated with radiosurgery, his most recent treatment on Monday01/16/24. Plan: 1. AMS / Left sided weakness: Based on CT does not appear the patient has had a stroke, but there is increasing edema surrounding the right occipital lesion may explain his symptoms. The patient was on Rx for decadron at home, but was starting to taper. Agree with high dose decadron to assess for improvement + Keppra. Would repeat MRI if patient becomes more alert. 2. Metastatic squamous cell carcinoma: Patient has received some palliative chemotherapy, but has had frequent hospital stays recently interrupting his treatment. He is still full-code at this time. If we do not see an improvement in his status, would certainly be reasonable to consider comfort measures only. Patient was seen Monday in office, was ambulating with no neurologic complaints at that time. This represents a fairly significant decline. Time with Patient: Less than 30
[2024-01-20 12:11] LABS: Glucose,Whole Blood 121 mg/dL (70-110)
[2024-01-20] MEDS ORDERED: INSULIN ASPART (NovoLOG) 100 UNIT/ML VIAL SQ SCH (12:30)
--- NOTE | 2024-01-20 12:43 | P.CONS ---
History of Present Illness - Reason for Consult Consult date: 01/20/24 New onset seizure/left hemiparesis, brain metastasis - History of Present Illness The patient is a 63-year-old white male, well-known to myself. 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 He was lost to follow-up after his had a neck cancer was treated and more recently was found to have a lung mass which was biopsied and found to be positive for moderately differentiated squamous cell carcinoma. He received cycle 1 of palliative chemo/immunotherapy on 12/06/2023 with carboplatin, Taxol, and Keytruda. Came in for cycle 2 of treatment on 12/15/2023 however was noted to be significantly short of breath. Sent for an emergent CT of the chest which revealed bilateral, left greater than right, pleural effusions as well as a small PE. He was sent to the ER where he was started on heparin drip and has underwent a thoracentesis with 1200 cc of hazy fluid removed. Cytology was negative for malignancy. Pleurx drain was placed during that admit. Patient was readmitted on 12/28/2023, when he was found by unresponsive at which time she called EMS. It was also reported pt had urinary incontienence. On admit CT brain and C-spine revealed no acute fracture or dislocation evident in the cervical spine. With a 1.8 cm hemorrhagic metastatic foci in the right occipital lobe with local mass effect/surrounding vasogenic edema, which was not noted on MRI brain obtained on 09/19/23. His anticoagulation was held. Dexamethasone started. MRI of the brain revealed 2.2 cm metastatic lesion in the right occipital lobe, with surrounding vasogenic edema. No other lesions were identified. The patient was seen by radiation oncology. He had an IVC filter placed. He proceeded to radiation, post discharge, and completed that last week. The patient was supposed to be on a steroid taper, but it was not clear if he was taking it as directed. He came into the hospital with new onset of left-sided weakness, left facial droop, lethargy, and decreased responsiveness. Imaging again showed the above- mentioned mass with surrounding edema. There was a mild, 3 mm midline shift. He was noted to have a dilated, unresponsive left pupil. The case was discussed in detail with the ER physician, and [facility]. Radiation oncology were contacted. They reviewed his scans remotely, and felt that there was no progression with the lesion either stable or possibly slightly smaller. The patient was seen by neurology. The left pupillary abnormality was determined to be chronic and stable. The patient was started back on IV steroids and admitted to the ICU for close monitoring. At the time of my evaluation, the patient was awake and alert. He was able to follow commands. However his speech and responses were only partially coherent Review of Systems Constitutional: Reports weakness, Reports weight loss Eyes: left as per HPI (Mild ptosis) Ears: deny: decreased hearing, ear discharge, earache, tinnitus Ears, nose, mouth and throat: Denies headache, Denies sore throat Cardiovascular: Reports decreased exercise tolerance Respiratory: Reports as per HPI, Reports dyspnea Gastrointestinal: Denies abdominal pain, Denies diarrhea, Denies nausea, Denies vomiting Genitourinary: Reports as per HPI Musculoskeletal: Reports muscle weakness Integumentary: Denies pruritus, Denies rash Neurological: Reports as per HPI, Reports change in mentation, Reports paralysis Psychiatric: Reports as per HPI, Reports confusion Endocrine: Reports fatigue, Reports weight change Hematologic/Lymphatic: Reports as per HPI, Reports thrombophilia Past Medical History Past Medical History: Cancer, Diabetes Mellitus, Eye Disorder, Thyroid Disorder Additional Past Medical History / Comment(s): HX TONGUE AND NECK CANCER-CHEMO AND RADIATION-NO SURGERY. Squamous cell carcinoma of the lung, metastatic. Pulmonary embolism. History of left-sided pleural effusion post Pleurx catheter insertion. History of IVC filter placement History of Any Multi-Drug Resistant Organisms: None Reported Past Surgical History: Orthopedic Surgery (Right ankle surgery) Additional Past Surgical History / Comment(s): eye surgery-BILAT GLAUCOMA. 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 AGO LT [facility] Past Anesthesia/Blood Transfusion Reactions: No Reported Reaction Past Psychological History: No Psychological Hx Reported Smoking Status: Never smoker Past Alcohol Use History: None Reported Past Drug Use History: None Reported Additional Drug Use History / Comment(s): Remote history of marijuana use - Past Family History Mother Family Medical History: No Reported History Father Additional Family Medical History / Comment(s): EtOH abuse Medications and Allergies Home Medications Medication Instructions Recorded Confirmed Type Multivitamins, Thera [Multivitamin 1 tab PO DAILY 09/02/21 01/19/24 History (formulary)] Levothyroxine Sodium [Synthroid] 175 mcg PO DAILY 08/30/23 01/19/24 History Dorzolamide-Timol 2.23%/0.68% 1 drop BOTH EYES BID 12/16/23 01/19/24 History [Cosopt] HYDROcodone/APAP 10-325MG [[place] 1 tab PO Q6H PRN 12/16/23 01/19/24 History 10-325] Insulin Aspart [NovoLOG Flexpen] See Protocol SQ AC-TID 12/16/23 01/19/24 History Insulin Glargine,Hum.rec.anlog 16 units SQ HS 12/16/23 01/19/24 History [Lantus Solostar Pen] dexAMETHasone [Decadron] 4 mg PO TID 14 Days #42 tablet 01/03/24 01/19/24 Rx levETIRAcetam [Keppra] 750 mg PO BID 30 Days #60 tab 01/03/24 01/19/24 Rx Allergies Allergy/AdvReac Type Severity Reaction Status Date / Time No Known Allergies Allergy Verified 01/19/24 13:57 Physical Exam Vitals: Vital Signs Temp Pulse Resp BP Pulse Ox FiO2 01/20/24 10:30 82 26 H 127/95 95 01/20/24 10:00 72 19 132/87 98 01/20/24 09:30 73 13 132/87 99 01/20/24 09:00 75 21 130/82 96 01/20/24 08:30 71 19 130/82 96 01/20/24 08:16 40 01/20/24 08:00 98.7 F 76 20 142/92 97 01/20/24 07:30 79 16 136/94 100 40 01/20/24 07:00 78 35 H 133/87 99 01/20/24 06:30 78 12 128/93 97 01/20/24 06:02 76 24 128/93 97 01/20/24 06:00 76 18 134/98 97 01/20/24 05:30 78 24 131/96 98 01/20/24 05:00 80 33 H 138/93 97 01/20/24 04:39 40 01/20/24 04:30 80 40 H 139/94 97 01/20/24 04:02 97.9 F 80 36 H 138/93 97 01/20/24 04:00 97.9 F 80 34 H 139/94 97 40 01/20/24 03:30 78 21 138/96 97 01/20/24 03:00 82 17 138/96 97 01/20/24 02:30 81 24 127/94 96 01/20/24 02:02 82 24 127/94 97 01/20/24 02:00 80 22 133/94 96 01/20/24 01:30 86 24 138/100 97 01/20/24 01:00 85 22 139/99 96 01/20/24 00:30 85 24 142/103 98 01/20/24 00:22 40 01/20/24 00:02 97.6 F 84 24 139/99 96 01/20/24 00:00 97.6 F 89 24 135/101 98 40 01/19/24 23:30 86 18 145/98 98 01/19/24 23:01 89 17 145/98 99 01/19/24 23:00 88 16 128/99 98 01/19/24 22:30 101 H 20 135/99 97 01/19/24 22:02 101 H 24 135/99 99 01/19/24 22:00 101 H 29 H 132/99 96 01/19/24 21:30 95 20 132/98 96 01/19/24 21:00 93 22 140/95 97 01/19/24 20:30 97 16 132/94 97 01/19/24 20:05 40 01/19/24 20:02 97.6 F 98 24 132/94 97 01/19/24 20:00 97.6 F 96 20 135/96 96 40 01/19/24 19:45 95 27 H 135/96 95 40 01/19/24 19:30 98.4 F 96 23 01/19/24 19:10 96 18 137/98 93 L 01/19/24 19:00 98 24 137/95 94 L 01/19/24 18:50 96 25 H 137/95 94 L 01/19/24 18:40 97 18 137/95 92 L 01/19/24 18:30 98 21 130/97 91 L 01/19/24 18:26 40 01/19/24 18:20 96 25 H 130/97 94 L 40 01/19/24 18:11 20 01/19/24 18:10 97 30 H 130/97 92 L 01/19/24 18:00 96 29 H 130/97 92 L 01/19/24 17:53 94 32 H 01/19/24 17:00 97 F L 92 16 138/96 93 L 01/19/24 16:00 97.2 F L 98 14 139/92 93 L 01/19/24 15:41 100 18 139/95 93 L 01/19/24 15:30 99 14 136/91 92 L 01/19/24 15:07 100 9 L 168/108 90 L 01/19/24 15:00 100 9 L 168/108 90 L 01/19/24 14:00 110 H 16 187/98 93 L 01/19/24 13:02 112 H 18 196/37 93 L 01/19/24 12:59 114 H 18 194/126 92 L 01/19/24 12:51 110 H 18 189/122 98 Intake and Output 01/19/24 01/20/24 01/20/24 22:59 06:59 14:59 Intake Total 225 629.200 350 Output Total 536 172 2142 Balance -525 -120.800 -770 Intake: IV 275 Magnesium Sulfate-D5w Pmx 200 1 gm In Dextrose/Water 1 100ml.bag @ 100 mls/hr IVPB Q1H ANN Rx#: [id number] Sodium Chloride 0.9% 1, 75 000 ml @ 75 mls/hr IV . [id number] STA Rx#:[id number] Intake, IV Titration 225 629.200 75 Amount Insulin Regular 100 unit 29.200 In Sodium Chloride 0.9% 100 ml @ Titrate IV .Q0M ANN Rx#:[id number] Sodium Chloride 0.9% 1, 225 600 75 000 ml @ 75 mls/hr IV . [id number] STA Rx#:[id number] Output: Drainage 420 Left Chest 420 Urine 750 750 700 Other: Voiding Method External Catheter External Catheter External Catheter Weight 77.7 kg 79.1 kg 79.1 kg - Constitutional General appearance: no acute distress - EENT Left pupil dilated, not responsive. Eyes: EOMI ENT: hearing grossly normal, normal oropharynx - Neck Thyroid: bilateral: normal size - Respiratory Respiratory: bilateral: wheezing (Scattered) - Cardiovascular Rhythm: regular Heart sounds: normal: S1, S2 - Gastrointestinal General gastrointestinal: normal bowel sounds, soft - Integumentary Integumentary: normal - Neurologic Mild left ptosis and left facial droop Neurologic: focal deficits (Power in left upper and lower extremity about 1/5) - Musculoskeletal Musculoskeletal: generalized weakness, left sided weakness - Psychiatric Awake alert. Attempts to follow commands appropriately. However speech is only partially coherent. Results CBC & Chem 7: 01/20/24 07:05 01/20/24 07:05 Labs: Abnormal Lab Results - Last 24 Hours (Table) 01/19/24 01/19/24 01/19/24 Range/Units 12:58 13:02 13:02 WBC 11.5 H (3.8-10.6) k/uL RBC 3.97 L (4.30-5.90) m/uL Hgb 12.7 L (13.0-17.5) gm/dL Hct (39.0-53.0) % MCV 101.3 H (80.0-100.0) fL MCHC (31.0-37.0) g/dL RDW 17.0 H (11.5-15.5) % Plt Count 488 H (150-450) k/uL Neutrophils # 8.0 H (1.3-7.7) k/uL Lymphocytes # (1.0-4.8) k/uL ABG pH (7.35-7.45) ABG pCO2 (35-45) mmHg ABG pO2 (83-108) mmHg ABG HCO3 (21-25) mmol/L ABG Total CO2 (19-24) mmol/L ABG O2 Saturation (94-97) % Hemoglobin (13.0-17.5) gm/dL Sodium 128 L (137-145) mmol/L Chloride 97 L (98-107) mmol/L BUN 25 H (9-20) mg/dL Creatinine (0.66-1.25) mg/dL Glucose 328 H (74-99) mg/dL POC Glucose (mg/dL) 313 H (70-110) mg/dL Hemoglobin A1c (<=6.0) % Calcium 8.2 L (8.4-10.2) mg/dL Magnesium (1.6-2.3) mg/dL ALT 59 H (4-49) U/L Alkaline Phosphatase 215 H (38-126) U/L Urine Glucose (UA) (Negative) Urine Opiates Screen (NotDetected) U Marijuana (THC) Screen (NotDetected) 01/19/24 01/19/24 01/19/24 Range/Units 13:02 13:29 16:44 WBC (3.8-10.6) k/uL RBC (4.30-5.90) m/uL Hgb (13.0-17.5) gm/dL Hct (39.0-53.0) % MCV (80.0-100.0) fL MCHC (31.0-37.0) g/dL RDW (11.5-15.5) % Plt Count (150-450) k/uL Neutrophils # (1.3-7.7) k/uL Lymphocytes # (1.0-4.8) k/uL ABG pH 7.16 L* (7.35-7.45) ABG pCO2 85 H* (35-45) mmHg ABG pO2 70 L (83-108) mmHg ABG HCO3 30 H (21-25) mmol/L ABG Total CO2 33 H (19-24) mmol/L ABG O2 Saturation 88.0 L (94-97) % Hemoglobin (13.0-17.5) gm/dL Sodium (137-145) mmol/L Chloride (98-107) mmol/L BUN (9-20) mg/dL Creatinine (0.66-1.25) mg/dL Glucose (74-99) mg/dL POC Glucose (mg/dL) (70-110) mg/dL Hemoglobin A1c 8.2 H (<=6.0) % Calcium (8.4-10.2) mg/dL Magnesium (1.6-2.3) mg/dL ALT (4-49) U/L Alkaline Phosphatase (38-126) U/L Urine Glucose (UA) 4+ H (Negative) Urine Opiates Screen Detected H (NotDetected) U Marijuana (THC) Screen Detected H (NotDetected) 01/19/24 01/19/24 01/19/24 Range/Units 17:55 19:55 19:58 WBC (3.8-10.6) k/uL RBC (4.30-5.90) m/uL Hgb (13.0-17.5) gm/dL Hct (39.0-53.0) % MCV (80.0-100.0) fL MCHC (31.0-37.0) g/dL RDW (11.5-15.5) % Plt Count (150-450) k/uL Neutrophils # (1.3-7.7) k/uL Lymphocytes # (1.0-4.8) k/uL ABG pH 7.25 L (7.35-7.45) ABG pCO2 71 H* (35-45) mmHg ABG pO2 (83-108) mmHg ABG HCO3 31 H (21-25) mmol/L ABG Total CO2 33 H (19-24) mmol/L ABG O2 Saturation 97.7 H (94-97) % Hemoglobin 12.7 L (13.0-17.5) gm/dL Sodium (137-145) mmol/L Chloride (98-107) mmol/L BUN (9-20) mg/dL Creatinine (0.66-1.25) mg/dL Glucose (74-99) mg/dL POC Glucose (mg/dL) 454 H 408 H (70-110) mg/dL Hemoglobin A1c (<=6.0) % Calcium (8.4-10.2) mg/dL Magnesium (1.6-2.3) mg/dL ALT (4-49) U/L Alkaline Phosphatase (38-126) U/L Urine Glucose (UA) (Negative) Urine Opiates Screen (NotDetected) U Marijuana (THC) Screen (NotDetected) 01/19/24 01/19/24 01/19/24 Range/Units 21:06 21:59 22:58 WBC (3.8-10.6) k/uL RBC (4.30-5.90) m/uL Hgb (13.0-17.5) gm/dL Hct (39.0-53.0) % MCV (80.0-100.0) fL MCHC (31.0-37.0) g/dL RDW (11.5-15.5) % Plt Count (150-450) k/uL Neutrophils # (1.3-7.7) k/uL Lymphocytes # (1.0-4.8) k/uL ABG pH (7.35-7.45) ABG pCO2 (35-45) mmHg ABG pO2 (83-108) mmHg ABG HCO3 (21-25) mmol/L ABG Total CO2 (19-24) mmol/L ABG O2 Saturation (94-97) % Hemoglobin (13.0-17.5) gm/dL Sodium (137-145) mmol/L Chloride (98-107) mmol/L BUN (9-20) mg/dL Creatinine (0.66-1.25) mg/dL Glucose (74-99) mg/dL POC Glucose (mg/dL) 416 H 409 H 395 H (70-110) mg/dL Hemoglobin A1c (<=6.0) % Calcium (8.4-10.2) mg/dL Magnesium (1.6-2.3) mg/dL ALT (4-49) U/L Alkaline Phosphatase (38-126) U/L Urine Glucose (UA) (Negative) Urine Opiates Screen (NotDetected) U Marijuana (THC) Screen (NotDetected) 01/20/24 01/20/24 01/20/24 Range/Units 00:01 01:00 03:02 WBC (3.8-10.6) k/uL RBC (4.30-5.90) m/uL Hgb (13.0-17.5) gm/dL Hct (39.0-53.0) % MCV (80.0-100.0) fL MCHC (31.0-37.0) g/dL RDW (11.5-15.5) % Plt Count (150-450) k/uL Neutrophils # (1.3-7.7) k/uL Lymphocytes # (1.0-4.8) k/uL ABG pH (7.35-7.45) ABG pCO2 (35-45) mmHg ABG pO2 (83-108) mmHg ABG HCO3 (21-25) mmol/L ABG Total CO2 (19-24) mmol/L ABG O2 Saturation (94-97) % Hemoglobin (13.0-17.5) gm/dL Sodium (137-145) mmol/L Chloride (98-107) mmol/L BUN (9-20) mg/dL Creatinine (0.66-1.25) mg/dL Glucose (74-99) mg/dL POC Glucose (mg/dL) 280 H 191 H 62 L (70-110) mg/dL Hemoglobin A1c (<=6.0) % Calcium (8.4-10.2) mg/dL Magnesium (1.6-2.3) mg/dL ALT (4-49) U/L Alkaline Phosphatase (38-126) U/L Urine Glucose (UA) (Negative) Urine Opiates Screen (NotDetected) U Marijuana (THC) Screen (NotDetected) 01/20/24 01/20/24 01/20/24 Range/Units 04:33 06:12 06:40 WBC (3.8-10.6) k/uL RBC (4.30-5.90) m/uL Hgb (13.0-17.5) gm/dL Hct (39.0-53.0) % MCV (80.0-100.0) fL MCHC (31.0-37.0) g/dL RDW (11.5-15.5) % Plt Count (150-450) k/uL Neutrophils # (1.3-7.7) k/uL Lymphocytes # (1.0-4.8) k/uL ABG pH 7.33 L (7.35-7.45) ABG pCO2 63 H (35-45) mmHg ABG pO2 124 H (83-108) mmHg ABG HCO3 33 H (21-25) mmol/L ABG Total CO2 35 H (19-24) mmol/L ABG O2 Saturation 97.7 H (94-97) % Hemoglobin 12.3 L (13.0-17.5) gm/dL Sodium (137-145) mmol/L Chloride (98-107) mmol/L BUN (9-20) mg/dL Creatinine (0.66-1.25) mg/dL Glucose (74-99) mg/dL POC Glucose (mg/dL) 59 L 138 H (70-110) mg/dL Hemoglobin A1c (<=6.0) % Calcium (8.4-10.2) mg/dL Magnesium (1.6-2.3) mg/dL ALT (4-49) U/L Alkaline Phosphatase (38-126) U/L Urine Glucose (UA) (Negative) Urine Opiates Screen (NotDetected) U Marijuana (THC) Screen (NotDetected) 01/20/24 01/20/24 01/20/24 Range/Units 06:53 07:05 07:05 WBC (3.8-10.6) k/uL RBC 3.40 L (4.30-5.90) m/uL Hgb 10.9 L (13.0-17.5) gm/dL Hct 35.1 L (39.0-53.0) % MCV 103.2 H (80.0-100.0) fL MCHC 30.9 L (31.0-37.0) g/dL RDW 16.8 H (11.5-15.5) % Plt Count (150-450) k/uL Neutrophils # 8.1 H (1.3-7.7) k/uL Lymphocytes # 0.4 L (1.0-4.8) k/uL ABG pH (7.35-7.45) ABG pCO2 (35-45) mmHg ABG pO2 (83-108) mmHg ABG HCO3 (21-25) mmol/L ABG Total CO2 (19-24) mmol/L ABG O2 Saturation (94-97) % Hemoglobin (13.0-17.5) gm/dL Sodium 133 L (137-145) mmol/L Chloride (98-107) mmol/L BUN (9-20) mg/dL Creatinine 0.49 L (0.66-1.25) mg/dL Glucose 107 H (74-99) mg/dL POC Glucose (mg/dL) 131 H (70-110) mg/dL Hemoglobin A1c (<=6.0) % Calcium 6.9 L (8.4-10.2) mg/dL Magnesium 1.3 L (1.6-2.3) mg/dL ALT (4-49) U/L Alkaline Phosphatase (38-126) U/L Urine Glucose (UA) (Negative) Urine Opiates Screen (NotDetected) U Marijuana (THC) Screen (NotDetected) 01/20/24 01/20/24 Range/Units 08:14 12:10 WBC (3.8-10.6) k/uL RBC (4.30-5.90) m/uL Hgb (13.0-17.5) gm/dL Hct (39.0-53.0) % MCV (80.0-100.0) fL MCHC (31.0-37.0) g/dL RDW (11.5-15.5) % Plt Count (150-450) k/uL Neutrophils # (1.3-7.7) k/uL Lymphocytes # (1.0-4.8) k/uL ABG pH (7.35-7.45) ABG pCO2 (35-45) mmHg ABG pO2 (83-108) mmHg ABG HCO3 (21-25) mmol/L ABG Total CO2 (19-24) mmol/L ABG O2 Saturation (94-97) % Hemoglobin (13.0-17.5) gm/dL Sodium (137-145) mmol/L Chloride (98-107) mmol/L BUN (9-20) mg/dL Creatinine (0.66-1.25) mg/dL Glucose (74-99) mg/dL POC Glucose (mg/dL) 122 H 121 H (70-110) mg/dL Hemoglobin A1c (<=6.0) % Calcium (8.4-10.2) mg/dL Magnesium (1.6-2.3) mg/dL ALT (4-49) U/L Alkaline Phosphatase (38-126) U/L Urine Glucose (UA) (Negative) Urine Opiates Screen (NotDetected) U Marijuana (THC) Screen (NotDetected) Chest x-ray: report reviewed CT Scan - head: report reviewed Assessment and Plan (1) Left hemiparesis Narrative/Plan: The patient presented with new onset of the same. Differentials included new CVA, versus rebound vasogenic edema postradiation with postseizure Anuj's paralysis also considered a possibility. -The CT report had mentioned the possibility of progression of the brain mass, although the measured size was in the same range. Case was extensively discussed with the ER physician, CCM, and radiation oncology. The degree of midline shift was mild. It was subsequently determined by neurology that the left leg abnormality was actually chronic and stable. Radiation oncology reviewed his scans remotely, and determined that the size of the mass was stable or slightly less. -The patient was therefore placed back on higher dose of IV steroids to treat any component of rebound edema. He was admitted to the ICU, and is being followed by [facility], and neurology. -Repeat MRI of the brain, as discussed with radiation oncology. It is too early to determine any response to radiation, for the his known brain metastasis. The main purpose is to check for any new pathology Current Visit: Yes Status: Acute Code(s): G81.94 - HEMIPLEGIA, UNSPECIFIED AFFECTING LEFT NONDOMINANT SIDE SNOMED Code(s): 327561243 (2) Squamous cell lung cancer Narrative/Plan: The patient has had 1 cycle of systemic therapy. Treatment has been on hold due to various factors, as described in the HPI. This will be resumed once his acute problems are appropriately controlled. Current Visit: No Status: Acute Priority: High Code(s): C34.90 - MALIGNANT NEOPLASM OF UNSP PART OF UNSP BRONCHUS OR LUNG SNOMED Code(s): 838525696
--- NOTE | 2024-01-20 13:59 | P.PN ---
Subjective Progress Note Date: 01/20/24 This is a 64-year-old male patient was admitted to the intensive care unit for recurrent seizures. 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 Subsequently, he was lost to follow-up and he presented back to us with a large left upper lobe mass and I performed bronchoscopy on this patient back in August 2023 and the findings were consistent with squamous cell carcinoma. The PET scan from September 2023 showed left upper lobe mass, PET avid in addition to metastatic activity involving the mediastinum and the right supraclavicular and bilateral lymph node lymphadenopathy in addition to left inferior pleural space FDG uptake and metastatic mediastinal lymphadenopathy. The patient was started on systemic treatment including a combination of carboplatinum, Alimta and Keytruda. While taking his second cycle of treatment, on 12/15/2023, the patient was noted to being have increased shortness of breath. He was sent to the emergency department and a CT angiogram of the chest was done and the patient was found to have small segmental branch pulmonary embolism involving the right lower lobe. Minimal overall clot burden. There was new moderate to large left-sided effusion along with atelectatic collapse of the left lower lobe. New moderate right-sided pleural effusion with adjacent atelectasis. There was also pleural nodularity in the posterior left upper lobe, additional disease progression with new pericardial lymphadenopathy measuring up to 2.1 cm in size and there was also a large left upper lobe mass encasing the left hilum that was measuring 11.9 cm in size with metastatic mediastinal and hilar lymphadenopathy and the patient had shown some partial response as the patient was receiving systemic chemotherapy. The echocardiogram that was done at that time on 12/15/2023 showed preserved LV function, normal RV size and function. Venous Doppler of the lower extremity that was done on 12/16/2023 showed no evidence of any DVT. Noted, the patient had a Pleurx catheter insertion on 12/19/2023 into the left pleural space and the fluid cytology was essentially negative for carcinoma or malignancy. The patient was discharged home and anticoagulation with Eliquis. Readmitted to the hospital on 12/28/2023 with altered mentation. The patient had unresponsiveness and new onset seizures. MRI of the brain was done and the patient was found to have right parietal/occipital mass with vasogenic edema. The patient was started on Keppra and Decadron. Anticoagulation was stopped and the patient was given an IVC filter on 01/02/2024 and the patient was discharged home on 01/03/2024 and he was advised to continue Decadron 4 mg p.o. 3 times daily and Keppra 750 mg p.o. twice daily. The patient was also seen by radiation oncology. Received SBRT to his brain, a total of 3 sessions earlier this week. The patient came into the emergency department today with strokelike symptoms and left-sided weakness. The patient also had altered mentation. His last known normal was unclear but this was sometime yesterday night. The patient was experiencing left-sided weakness, facial droop and dysarthria. He also had developed a dilated left pupil which was noted few weeks back. CT scan of the brain was done in Emergency Department and the patient was found to have a 2 point centimeter lesion that had been enlarging compared to the previous CAT scan of the brain that was done on 12/28/2023. The patient had hyperdense right occipital lobe 2.1 cm lesion with increasing surrounding vasogenic edema and a 3 mm left shift from midline. The CTA of the brain was also done and it showed no evidence of dissection of the cervical or internal carotid arteries or vertebral arteries. No evidence of any high-grade stenosis intracranially. There was a enhancing right occipital lobe mass with surrounding vasogenic edema. In the emergency, the patient had also 2 episodes of seizures. The case was discussed with outside facilities regarding transfer and was found that there was no indication for this medical transfer. The patient was started on Decadron 6 mg IV every 6 hours and the patient was kept on Keppra 750 mg IV every 12 hours. He was admitted to the intensive care unit for further management. He seems to be quite obtunded at this point in time. Blood gas was also done in the ICU and the patient was found to have a pH of 7.16 with a pCO2 of 85 and a pO2 of 70 and this was done by the patient being in 60s of oxygen by nasal cannula. Accordingly, the patient was placed on a BiPAP. Chest x-ray has not been done yet. The white cell count is 11.5 with a hemoglobin 12.7 and platelet count of 488. BUN 25 L and 0.6 and a sodium levels at 128. Blood sugar is at 454. Normal UA. Urine drug screen is positive for marijuana and opiates. 01/20/2024, the patient is much more awake compared to yesterday. The patient is unable to move his left upper and left lower extremity. He is able to wiggle his toes and his fingers on the left. Mental status is improved. No further seizure activity has been noted. The patient remains on a combination of Keppra and Decadron. Keppra is 500 mg IV every 12 hours and the patient is also on Decadron at 6 mg IV every 6 hours. The patient was further taken off the BiPAP. He is currently on 2 L of oxygen by nasal cannula. Pulse ox is 98%. Morning blood work shows a WBC count of 8.9, hemoglobin 10.9 and platelet count of 378. BUN is 19 with a creatinine of 0.49 and a sodium levels at 133. He does have a Pleurx catheter in his left chest and a total of 100 cc of pleural fluid was evacuated this morning. The follow-up chest x-ray shows some limited improvement in aeration of the left lung base. Objective - Vital Signs Vital signs: Vital Signs Temp 98.7 F 01/20/24 08:00 Pulse 75 01/20/24 09:00 Resp 21 01/20/24 09:00 BP 130/82 01/20/24 09:00 Pulse Ox 96 01/20/24 09:00 FiO2 40 01/20/24 08:16 Intake & Output 01/19/24 01/20/24 01/20/24 18:59 06:59 18:59 Intake Total 854.200 325 Output Total 300 1200 1020 Balance -300 -345.800 -695 Weight 77.7 kg 79.1 kg Intake: IV 250 Magnesium Sulfate-D5w Pmx 100 1 gm In Dextrose/Water 1 100ml.bag @ 100 mls/hr IVPB Q1H ANN Rx#: [id number] Sodium Chloride 0.9% 1, 150 000 ml @ 75 mls/hr IV . [id number] STA Rx#:[id number] Intake, IV Titration 854.200 75 Amount Insulin Regular 100 unit 29.200 In Sodium Chloride 0.9% 100 ml @ Titrate IV .Q0M ANN Rx#:[id number] Sodium Chloride 0.9% 1, 825 75 000 ml @ 75 mls/hr IV . [id number] STA Rx#:[id number] Output: Drainage 420 Left Chest 420 Urine 300 1200 600 Other: Voiding Method External Catheter External Catheter - Exam GENERAL EXAM: Alert, 63-year-old male, awake and alert and off the BiPAP HEAD: Normocephalic. EYES: Dilated left pupil NOSE: Clear with pink turbinates. THROAT: No erythema or exudates. NECK: No masses, no JVD. CHEST: No chest wall deformity. LUNGS: Equal air entry with bibasilar crackles, left greater than right, diminished left lung base. CVS: S1 and S2 normal with no audible murmur, regular rhythm. ABDOMEN: No hepatosplenomegaly, normal bowel sounds, no guarding or rigidity. SPINE: No scoliosis or deformity SKIN: No rashes CENTRAL NERVOUS SYSTEM: Left-sided weakness, dilated left pupil, free of any seizures. The patient opened his eyes upon stimulation. Awake and alert and communicating. Left-sided paralysis is unchanged. EXTREMITIES: There is no peripheral edema. No clubbing, no cyanosis. Peripheral pulses are intact. - Labs CBC & Chem 7: 01/20/24 07:05 01/20/24 07:05 Labs: Abnormal Lab Results - Last 24 Hours (Table) 01/19/24 01/19/24 01/19/24 Range/Units 12:58 13:02 13:02 WBC 11.5 H (3.8-10.6) k/uL RBC 3.97 L (4.30-5.90) m/uL Hgb 12.7 L (13.0-17.5) gm/dL Hct (39.0-53.0) % MCV 101.3 H (80.0-100.0) fL MCHC (31.0-37.0) g/dL RDW 17.0 H (11.5-15.5) % Plt Count 488 H (150-450) k/uL Neutrophils # 8.0 H (1.3-7.7) k/uL Lymphocytes # (1.0-4.8) k/uL ABG pH (7.35-7.45) ABG pCO2 (35-45) mmHg ABG pO2 (83-108) mmHg ABG HCO3 (21-25) mmol/L ABG Total CO2 (19-24) mmol/L ABG O2 Saturation (94-97) % Hemoglobin (13.0-17.5) gm/dL Sodium 128 L (137-145) mmol/L Chloride 97 L (98-107) mmol/L BUN 25 H (9-20) mg/dL Creatinine (0.66-1.25) mg/dL Glucose 328 H (74-99) mg/dL POC Glucose (mg/dL) 313 H (70-110) mg/dL Hemoglobin A1c (<=6.0) % Calcium 8.2 L (8.4-10.2) mg/dL Magnesium (1.6-2.3) mg/dL ALT 59 H (4-49) U/L Alkaline Phosphatase 215 H (38-126) U/L Urine Glucose (UA) (Negative) Urine Opiates Screen (NotDetected) U Marijuana (THC) Screen (NotDetected) 01/19/24 01/19/24 01/19/24 Range/Units 13:02 13:29 16:44 WBC (3.8-10.6) k/uL RBC (4.30-5.90) m/uL Hgb (13.0-17.5) gm/dL Hct (39.0-53.0) % MCV (80.0-100.0) fL MCHC (31.0-37.0) g/dL RDW (11.5-15.5) % Plt Count (150-450) k/uL Neutrophils # (1.3-7.7) k/uL Lymphocytes # (1.0-4.8) k/uL ABG pH 7.16 L* (7.35-7.45) ABG pCO2 85 H* (35-45) mmHg ABG pO2 70 L (83-108) mmHg ABG HCO3 30 H (21-25) mmol/L ABG Total CO2 33 H (19-24) mmol/L ABG O2 Saturation 88.0 L (94-97) % Hemoglobin (13.0-17.5) gm/dL Sodium (137-145) mmol/L Chloride (98-107) mmol/L BUN (9-20) mg/dL Creatinine (0.66-1.25) mg/dL Glucose (74-99) mg/dL POC Glucose (mg/dL) (70-110) mg/dL Hemoglobin A1c 8.2 H (<=6.0) % Calcium (8.4-10.2) mg/dL Magnesium (1.6-2.3) mg/dL ALT (4-49) U/L Alkaline Phosphatase (38-126) U/L Urine Glucose (UA) 4+ H (Negative) Urine Opiates Screen Detected H (NotDetected) U Marijuana (THC) Screen Detected H (NotDetected) 01/19/24 01/19/24 01/19/24 Range/Units 17:55 19:55 19:58 WBC (3.8-10.6) k/uL RBC (4.30-5.90) m/uL Hgb (13.0-17.5) gm/dL Hct (39.0-53.0) % MCV (80.0-100.0) fL MCHC (31.0-37.0) g/dL RDW (11.5-15.5) % Plt Count (150-450) k/uL Neutrophils # (1.3-7.7) k/uL Lymphocytes # (1.0-4.8) k/uL ABG pH 7.25 L (7.35-7.45) ABG pCO2 71 H* (35-45) mmHg ABG pO2 (83-108) mmHg ABG HCO3 31 H (21-25) mmol/L ABG Total CO2 33 H (19-24) mmol/L ABG O2 Saturation 97.7 H (94-97) % Hemoglobin 12.7 L (13.0-17.5) gm/dL Sodium (137-145) mmol/L Chloride (98-107) mmol/L BUN (9-20) mg/dL Creatinine (0.66-1.25) mg/dL Glucose (74-99) mg/dL POC Glucose (mg/dL) 454 H 408 H (70-110) mg/dL Hemoglobin A1c (<=6.0) % Calcium (8.4-10.2) mg/dL Magnesium (1.6-2.3) mg/dL ALT (4-49) U/L Alkaline Phosphatase (38-126) U/L Urine Glucose (UA) (Negative) Urine Opiates Screen (NotDetected) U Marijuana (THC) Screen (NotDetected) 01/19/24 01/19/24 01/19/24 Range/Units 21:06 21:59 22:58 WBC (3.8-10.6) k/uL RBC (4.30-5.90) m/uL Hgb (13.0-17.5) gm/dL Hct (39.0-53.0) % MCV (80.0-100.0) fL MCHC (31.0-37.0) g/dL RDW (11.5-15.5) % Plt Count (150-450) k/uL Neutrophils # (1.3-7.7) k/uL Lymphocytes # (1.0-4.8) k/uL ABG pH (7.35-7.45) ABG pCO2 (35-45) mmHg ABG pO2 (83-108) mmHg ABG HCO3 (21-25) mmol/L ABG Total CO2 (19-24) mmol/L ABG O2 Saturation (94-97) % Hemoglobin (13.0-17.5) gm/dL Sodium (137-145) mmol/L Chloride (98-107) mmol/L BUN (9-20) mg/dL Creatinine (0.66-1.25) mg/dL Glucose (74-99) mg/dL POC Glucose (mg/dL) 416 H 409 H 395 H (70-110) mg/dL Hemoglobin A1c (<=6.0) % Calcium (8.4-10.2) mg/dL Magnesium (1.6-2.3) mg/dL ALT (4-49) U/L Alkaline Phosphatase (38-126) U/L Urine Glucose (UA) (Negative) Urine Opiates Screen (NotDetected) U Marijuana (THC) Screen (NotDetected) 01/20/24 01/20/24 01/20/24 Range/Units 00:01 01:00 03:02 WBC (3.8-10.6) k/uL RBC (4.30-5.90) m/uL Hgb (13.0-17.5) gm/dL Hct (39.0-53.0) % MCV (80.0-100.0) fL MCHC (31.0-37.0) g/dL RDW (11.5-15.5) % Plt Count (150-450) k/uL Neutrophils # (1.3-7.7) k/uL Lymphocytes # (1.0-4.8) k/uL ABG pH (7.35-7.45) ABG pCO2 (35-45) mmHg ABG pO2 (83-108) mmHg ABG HCO3 (21-25) mmol/L ABG Total CO2 (19-24) mmol/L ABG O2 Saturation (94-97) % Hemoglobin (13.0-17.5) gm/dL Sodium (137-145) mmol/L Chloride (98-107) mmol/L BUN (9-20) mg/dL Creatinine (0.66-1.25) mg/dL Glucose (74-99) mg/dL POC Glucose (mg/dL) 280 H 191 H 62 L (70-110) mg/dL Hemoglobin A1c (<=6.0) % Calcium (8.4-10.2) mg/dL Magnesium (1.6-2.3) mg/dL ALT (4-49) U/L Alkaline Phosphatase (38-126) U/L Urine Glucose (UA) (Negative) Urine Opiates Screen (NotDetected) U Marijuana (THC) Screen (NotDetected) 01/20/24 01/20/24 01/20/24 Range/Units 04:33 06:12 06:40 WBC (3.8-10.6) k/uL RBC (4.30-5.90) m/uL Hgb (13.0-17.5) gm/dL Hct (39.0-53.0) % MCV (80.0-100.0) fL MCHC (31.0-37.0) g/dL RDW (11.5-15.5) % Plt Count (150-450) k/uL Neutrophils # (1.3-7.7) k/uL Lymphocytes # (1.0-4.8) k/uL ABG pH 7.33 L (7.35-7.45) ABG pCO2 63 H (35-45) mmHg ABG pO2 124 H (83-108) mmHg ABG HCO3 33 H (21-25) mmol/L ABG Total CO2 35 H (19-24) mmol/L ABG O2 Saturation 97.7 H (94-97) % Hemoglobin 12.3 L (13.0-17.5) gm/dL Sodium (137-145) mmol/L Chloride (98-107) mmol/L BUN (9-20) mg/dL Creatinine (0.66-1.25) mg/dL Glucose (74-99) mg/dL POC Glucose (mg/dL) 59 L 138 H (70-110) mg/dL Hemoglobin A1c (<=6.0) % Calcium (8.4-10.2) mg/dL Magnesium (1.6-2.3) mg/dL ALT (4-49) U/L Alkaline Phosphatase (38-126) U/L Urine Glucose (UA) (Negative) Urine Opiates Screen (NotDetected) U Marijuana (THC) Screen (NotDetected) 01/20/24 01/20/24 01/20/24 Range/Units 06:53 07:05 07:05 WBC (3.8-10.6) k/uL RBC 3.40 L (4.30-5.90) m/uL Hgb 10.9 L (13.0-17.5) gm/dL Hct 35.1 L (39.0-53.0) % MCV 103.2 H (80.0-100.0) fL MCHC 30.9 L (31.0-37.0) g/dL RDW 16.8 H (11.5-15.5) % Plt Count (150-450) k/uL Neutrophils # 8.1 H (1.3-7.7) k/uL Lymphocytes # 0.4 L (1.0-4.8) k/uL ABG pH (7.35-7.45) ABG pCO2 (35-45) mmHg ABG pO2 (83-108) mmHg ABG HCO3 (21-25) mmol/L ABG Total CO2 (19-24) mmol/L ABG O2 Saturation (94-97) % Hemoglobin (13.0-17.5) gm/dL Sodium 133 L (137-145) mmol/L Chloride (98-107) mmol/L BUN (9-20) mg/dL Creatinine 0.49 L (0.66-1.25) mg/dL Glucose 107 H (74-99) mg/dL POC Glucose (mg/dL) 131 H (70-110) mg/dL Hemoglobin A1c (<=6.0) % Calcium 6.9 L (8.4-10.2) mg/dL Magnesium 1.3 L (1.6-2.3) mg/dL ALT (4-49) U/L Alkaline Phosphatase (38-126) U/L Urine Glucose (UA) (Negative) Urine Opiates Screen (NotDetected) U Marijuana (THC) Screen (NotDetected) 01/20/24 Range/Units 08:14 WBC (3.8-10.6) k/uL RBC (4.30-5.90) m/uL Hgb (13.0-17.5) gm/dL Hct (39.0-53.0) % MCV (80.0-100.0) fL MCHC (31.0-37.0) g/dL RDW (11.5-15.5) % Plt Count (150-450) k/uL Neutrophils # (1.3-7.7) k/uL Lymphocytes # (1.0-4.8) k/uL ABG pH (7.35-7.45) ABG pCO2 (35-45) mmHg ABG pO2 (83-108) mmHg ABG HCO3 (21-25) mmol/L ABG Total CO2 (19-24) mmol/L ABG O2 Saturation (94-97) % Hemoglobin (13.0-17.5) gm/dL Sodium (137-145) mmol/L Chloride (98-107) mmol/L BUN (9-20) mg/dL Creatinine (0.66-1.25) mg/dL Glucose (74-99) mg/dL POC Glucose (mg/dL) 122 H (70-110) mg/dL Hemoglobin A1c (<=6.0) % Calcium (8.4-10.2) mg/dL Magnesium (1.6-2.3) mg/dL ALT (4-49) U/L Alkaline Phosphatase (38-126) U/L Urine Glucose (UA) (Negative) Urine Opiates Screen (NotDetected) U Marijuana (THC) Screen (NotDetected) Assessment and Plan Plan: Seizures, 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 The patient also has an enlarging right occipital brain lesion measuring 2.1 cm in size with surrounding edema and 3 mm leftward midline shift. The patient is currently on a combination of Decadron and Keppra. Neurology on the case. Continues to have paralysis of the left upper and left lower extremity. Acute hypoxic/hypercapnic respiratory failure, currently off the BiPAP and 2 L of oxygen by nasal cannula. Metastatic NURSE TRANSITIONAL lesion, right occipital, currently on Decadron, status post SBRT Left-sided weakness, rule out Anuj's paralysis following seizure. Rule out motor deficits related to metastatic brain lesion and vasogenic edema, clinically unchanged Metastatic squamous cell carcinoma of the lung versus metastatic from head and neck/tongue cancer from 2021, initiated on a combination of carboplatin Alimta and Keytruda on 12/06/2023 and the patient received only 1 cycle. History of tongue cancer Left upper lobe mass measuring 12 cm in size with extensive mediastinal lymphadenopathy consistent with metastatic disease Pulmonary embolism, small segmental, status post IVC filter placement History of Pleurx catheter insertion for a left-sided pleural effusion, pleural fluid cytology has been negative for malignancy, left lung is quite opacified due to a left upper lobe tumor, atelectasis and a left-sided pleural effusion. Diabetes mellitus with steroid-induced hyperglycemia Hypothyroidism Plan Continue oxygen 2 L nasal cannula and use BiPAP if needed Drain the left hemithorax through the Pleurx catheter, a total of 400 cc of pleural fluid was evacuated Swallow evaluation Monitor mental status Continue IV Decadron 6 mg every 6 hours Continue IV Keppra Levemir insulin 16 units along with a sliding scale coverage Patient has an IVC filter placement No anticoagulants for now IV fluids normal saline at rate of 75 cc an hour IV Protonix Consult neurology consult radiation oncology Consult hematology oncology extremely poor prognosis based on above, current CODE STATUS is full. Will strongly support changing his CODE STATUS to DNR/DNI. Will have further discussion with the . Critical care evaluation that was done more than 30 minutes. . Time with Patient: Greater than 30
--- NOTE | 2024-01-20 15:29 | P.PN ---
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 Known left-sided weakness with left pupil dilatation. CT of the brain demonstrated 2.1 cm lesion enlarging from prior with worsening vasogenic edema and left midline shift. Had 1 seizure with EMS. Initial vital signs were remarkable for tachycardia with heart rate of 102 and blood pressure of 184/117. Initial laboratory analysis was remarkable for white blood cell count 11.5, hemoglobin 12.7, platelets 488, sodium 128. At that time ABG showed a pH of 7.16 with a pCO2 of 85. Additionally patient underwent CTA of the head and neck which showed no significant stenosis. Chest x-ray showed increasing interstitial density concerning for pulmonary vascular congestion with ongoing volume loss and extensive pleural opacity throughout the left hemithorax with left basilar Pleurx catheter in place. Patient was admitted to the ICU with breakthrough seizure. Neurology and critical care were consulted. Consideration was made for transfer but it was found that there is no indication for medical transfer. Patient was started on Decadron 6 mg IV every 6 hours and Keppra 750 mg IV every 12 hours. Was started on BiPAP due to the ABG results which was weaned off by 01/19, was breifly on an insulin gtt. Patient seen and examined at bedside. C/O fatigue and weakness. States he recevied radiation X [address] Hartmann and that Dr. Roblero is his oncologist. Denies chest pain, SOB, headache, and nausea. Vital signs reviewed General: Nontoxic, no distress, appears at stated age Cardiovascular: S1S2 reg, no murmur Lungs: Coarse breath sounds bilateral, no rhonchi, no rales, no accessory muscle use Abdominal: Soft, nontender to palpation, no guarding Ext: No gross muscle atrophy, no edema b/l lower extremities, no contractures Neuro: CN II-XI grossly intact, left upper extremity unable to lift off bed, weakened mult au matic operator strength compared to right, unable to move left lower extremity against gravity, right upper and lower extremity 5 out of 5 muscle strength Psych: Alert, oriented to self and situation, blunted affect, slowed thinking Assessment/Plan: Left-sided weakness Breakthrough seizure Head 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 -Required 1 dose of labetalol. DM2 with hypo and hyperglycemia -Levemir 16 units at night, sliding scale insulin -A1c 8.2 Anemia, likely multifactorial -Follow CBC -No indication for transfusion at this time Hypomagnesemia -Magnesium sulfate 4 g IV piggyback Hyponatremia, improved Thrombocytosis, resolved Imaging: Chest x-ray: No significant interval change Data Review: Labs reviewed from today include CBC, ABG, and BMP which are remarkable for hemoglobin 10.9, sodium 133, magnesium 1.3 DVT prophylaxis: SCDs (heparin Dc'd) Anticipated discharge date: Pending Clinical Course Anticipated discharge place: Pending Clinical Course [] This dictation was prepared using [employer]ink voice recognition software. Though every attempt is made to correct errors during dictation some may still exist. Objective - Vital Signs Vital signs: Vital Signs Temp 97.9 F 01/20/24 04:02 Pulse 78 01/20/24 07:00 Resp 35 H 01/20/24 07:00 BP 133/87 01/20/24 07:00 Pulse Ox 99 01/20/24 07:00 FiO2 40 01/20/24 04:39 Intake & Output 01/19/24 01/20/24 01/20/24 18:59 06:59 18:59 Intake Total 854.200 75 Output Total 300 1200 400 Balance -300 -345.800 -325 Weight 77.7 kg 79.1 kg Intake: Intake, IV Titration 854.200 75 Amount Insulin Regular 100 unit 29.200 In Sodium Chloride 0.9% 100 ml @ Titrate IV .Q0M ANN Rx#:[id number] Sodium Chloride 0.9% 1, 825 75 000 ml @ 75 mls/hr IV . [id number] STA Rx#:[id number] Output: Drainage 400 Left Chest 400 Urine 300 1200 0 Other: Voiding Method External Catheter - Labs CBC & Chem 7: 01/20/24 07:05 01/20/24 07:05 Labs: Abnormal Lab Results - Last 24 Hours (Table) 01/19/24 01/19/24 01/19/24 Range/Units 12:58 13:02 13:02 WBC 11.5 H (3.8-10.6) k/uL RBC 3.97 L (4.30-5.90) m/uL Hgb 12.7 L (13.0-17.5) gm/dL Hct (39.0-53.0) % MCV 101.3 H (80.0-100.0) fL MCHC (31.0-37.0) g/dL RDW 17.0 H (11.5-15.5) % Plt Count 488 H (150-450) k/uL Neutrophils # 8.0 H (1.3-7.7) k/uL Lymphocytes # (1.0-4.8) k/uL ABG pH (7.35-7.45) ABG pCO2 (35-45) mmHg ABG pO2 (83-108) mmHg ABG HCO3 (21-25) mmol/L ABG Total CO2 (19-24) mmol/L ABG O2 Saturation (94-97) % Hemoglobin (13.0-17.5) gm/dL Sodium 128 L (137-145) mmol/L Chloride 97 L (98-107) mmol/L BUN 25 H (9-20) mg/dL Creatinine (0.66-1.25) mg/dL Glucose 328 H (74-99) mg/dL POC Glucose (mg/dL) 313 H (70-110) mg/dL Hemoglobin A1c (<=6.0) % Calcium 8.2 L (8.4-10.2) mg/dL Magnesium (1.6-2.3) mg/dL ALT 59 H (4-49) U/L Alkaline Phosphatase 215 H (38-126) U/L Urine Glucose (UA) (Negative) Urine Opiates Screen (NotDetected) U Marijuana (THC) Screen (NotDetected) 01/19/24 01/19/24 01/19/24 Range/Units 13:02 13:29 16:44 WBC (3.8-10.6) k/uL RBC (4.30-5.90) m/uL Hgb (13.0-17.5) gm/dL Hct (39.0-53.0) % MCV (80.0-100.0) fL MCHC (31.0-37.0) g/dL RDW (11.5-15.5) % Plt Count (150-450) k/uL Neutrophils # (1.3-7.7) k/uL Lymphocytes # (1.0-4.8) k/uL ABG pH 7.16 L* (7.35-7.45) ABG pCO2 85 H* (35-45) mmHg ABG pO2 70 L (83-108) mmHg ABG HCO3 30 H (21-25) mmol/L ABG Total CO2 33 H (19-24) mmol/L ABG O2 Saturation 88.0 L (94-97) % Hemoglobin (13.0-17.5) gm/dL Sodium (137-145) mmol/L Chloride (98-107) mmol/L BUN (9-20) mg/dL Creatinine (0.66-1.25) mg/dL Glucose (74-99) mg/dL POC Glucose (mg/dL) (70-110) mg/dL Hemoglobin A1c 8.2 H (<=6.0) % Calcium (8.4-10.2) mg/dL Magnesium (1.6-2.3) mg/dL ALT (4-49) U/L Alkaline Phosphatase (38-126) U/L Urine Glucose (UA) 4+ H (Negative) Urine Opiates Screen Detected H (NotDetected) U Marijuana (THC) Screen Detected H (NotDetected) 01/19/24 01/19/24 01/19/24 Range/Units 17:55 19:55 19:58 WBC (3.8-10.6) k/uL RBC (4.30-5.90) m/uL Hgb (13.0-17.5) gm/dL Hct (39.0-53.0) % MCV (80.0-100.0) fL MCHC (31.0-37.0) g/dL RDW (11.5-15.5) % Plt Count (150-450) k/uL Neutrophils # (1.3-7.7) k/uL Lymphocytes # (1.0-4.8) k/uL ABG pH 7.25 L (7.35-7.45) ABG pCO2 71 H* (35-45) mmHg ABG pO2 (83-108) mmHg ABG HCO3 31 H (21-25) mmol/L ABG Total CO2 33 H (19-24) mmol/L ABG O2 Saturation 97.7 H (94-97) % Hemoglobin 12.7 L (13.0-17.5) gm/dL Sodium (137-145) mmol/L Chloride (98-107) mmol/L BUN (9-20) mg/dL Creatinine (0.66-1.25) mg/dL Glucose (74-99) mg/dL POC Glucose (mg/dL) 454 H 408 H (70-110) mg/dL Hemoglobin A1c (<=6.0) % Calcium (8.4-10.2) mg/dL Magnesium (1.6-2.3) mg/dL ALT (4-49) U/L Alkaline Phosphatase (38-126) U/L Urine Glucose (UA) (Negative) Urine Opiates Screen (NotDetected) U Marijuana (THC) Screen (NotDetected) 01/19/24 01/19/24 01/19/24 Range/Units 21:06 21:59 22:58 WBC (3.8-10.6) k/uL RBC (4.30-5.90) m/uL Hgb (13.0-17.5) gm/dL Hct (39.0-53.0) % MCV (80.0-100.0) fL MCHC (31.0-37.0) g/dL RDW (11.5-15.5) % Plt Count (150-450) k/uL Neutrophils # (1.3-7.7) k/uL Lymphocytes # (1.0-4.8) k/uL ABG pH (7.35-7.45) ABG pCO2 (35-45) mmHg ABG pO2 (83-108) mmHg ABG HCO3 (21-25) mmol/L ABG Total CO2 (19-24) mmol/L ABG O2 Saturation (94-97) % Hemoglobin (13.0-17.5) gm/dL Sodium (137-145) mmol/L Chloride (98-107) mmol/L BUN (9-20) mg/dL Creatinine (0.66-1.25) mg/dL Glucose (74-99) mg/dL POC Glucose (mg/dL) 416 H 409 H 395 H (70-110) mg/dL Hemoglobin A1c (<=6.0) % Calcium (8.4-10.2) mg/dL Magnesium (1.6-2.3) mg/dL ALT (4-49) U/L Alkaline Phosphatase (38-126) U/L Urine Glucose (UA) (Negative) Urine Opiates Screen (NotDetected) U Marijuana (THC) Screen (NotDetected) 01/20/24 01/20/24 01/20/24 Range/Units 00:01 01:00 03:02 WBC (3.8-10.6) k/uL RBC (4.30-5.90) m/uL Hgb (13.0-17.5) gm/dL Hct (39.0-53.0) % MCV (80.0-100.0) fL MCHC (31.0-37.0) g/dL RDW (11.5-15.5) % Plt Count (150-450) k/uL Neutrophils # (1.3-7.7) k/uL Lymphocytes # (1.0-4.8) k/uL ABG pH (7.35-7.45) ABG pCO2 (35-45) mmHg ABG pO2 (83-108) mmHg ABG HCO3 (21-25) mmol/L ABG Total CO2 (19-24) mmol/L ABG O2 Saturation (94-97) % Hemoglobin (13.0-17.5) gm/dL Sodium (137-145) mmol/L Chloride (98-107) mmol/L BUN (9-20) mg/dL Creatinine (0.66-1.25) mg/dL Glucose (74-99) mg/dL POC Glucose (mg/dL) 280 H 191 H 62 L (70-110) mg/dL Hemoglobin A1c (<=6.0) % Calcium (8.4-10.2) mg/dL Magnesium (1.6-2.3) mg/dL ALT (4-49) U/L Alkaline Phosphatase (38-126) U/L Urine Glucose (UA) (Negative) Urine Opiates Screen (NotDetected) U Marijuana (THC) Screen (NotDetected) 01/20/24 01/20/24 01/20/24 Range/Units 04:33 06:12 06:40 WBC (3.8-10.6) k/uL RBC (4.30-5.90) m/uL Hgb (13.0-17.5) gm/dL Hct (39.0-53.0) % MCV (80.0-100.0) fL MCHC (31.0-37.0) g/dL RDW (11.5-15.5) % Plt Count (150-450) k/uL Neutrophils # (1.3-7.7) k/uL Lymphocytes # (1.0-4.8) k/uL ABG pH 7.33 L (7.35-7.45) ABG pCO2 63 H (35-45) mmHg ABG pO2 124 H (83-108) mmHg ABG HCO3 33 H (21-25) mmol/L ABG Total CO2 35 H (19-24) mmol/L ABG O2 Saturation 97.7 H (94-97) % Hemoglobin 12.3 L (13.0-17.5) gm/dL Sodium (137-145) mmol/L Chloride (98-107) mmol/L BUN (9-20) mg/dL Creatinine (0.66-1.25) mg/dL Glucose (74-99) mg/dL POC Glucose (mg/dL) 59 L 138 H (70-110) mg/dL Hemoglobin A1c (<=6.0) % Calcium (8.4-10.2) mg/dL Magnesium (1.6-2.3) mg/dL ALT (4-49) U/L Alkaline Phosphatase (38-126) U/L Urine Glucose (UA) (Negative) Urine Opiates Screen (NotDetected) U Marijuana (THC) Screen (NotDetected) 01/20/24 01/20/24 01/20/24 Range/Units 06:53 07:05 07:05 WBC (3.8-10.6) k/uL RBC 3.40 L (4.30-5.90) m/uL Hgb 10.9 L (13.0-17.5) gm/dL Hct 35.1 L (39.0-53.0) % MCV 103.2 H (80.0-100.0) fL MCHC 30.9 L (31.0-37.0) g/dL RDW 16.8 H (11.5-15.5) % Plt Count (150-450) k/uL Neutrophils # 8.1 H (1.3-7.7) k/uL Lymphocytes # 0.4 L (1.0-4.8) k/uL ABG pH (7.35-7.45) ABG pCO2 (35-45) mmHg ABG pO2 (83-108) mmHg ABG HCO3 (21-25) mmol/L ABG Total CO2 (19-24) mmol/L ABG O2 Saturation (94-97) % Hemoglobin (13.0-17.5) gm/dL Sodium 133 L (137-145) mmol/L Chloride (98-107) mmol/L BUN (9-20) mg/dL Creatinine 0.49 L (0.66-1.25) mg/dL Glucose 107 H (74-99) mg/dL POC Glucose (mg/dL) 131 H (70-110) mg/dL Hemoglobin A1c (<=6.0) % Calcium 6.9 L (8.4-10.2) mg/dL Magnesium 1.3 L (1.6-2.3) mg/dL ALT (4-49) U/L Alkaline Phosphatase (38-126) U/L Urine Glucose (UA) (Negative) Urine Opiates Screen (NotDetected) U Marijuana (THC) Screen (NotDetected)
[2024-01-20 16:50] LABS: Glucose,Whole Blood 214 mg/dL (70-110)
[2024-01-20] MEDS ORDERED: ZINC OXIDE PASTE (Z-GUARD) 1 APPLIC TOPICAL PRN (17:45)
[2024-01-20 19:44] LABS: Glucose,Whole Blood 249 mg/dL (70-110)
[2024-01-20] MEDS: MELATONIN 3 MG TABLET PO PRN (22:15)
[2024-01-21] MEDS: DEXTROSE 50% SYRINGE 50 ML IVP PRN (03:20)
[2024-01-21 03:21] LABS: Glucose,Whole Blood 53 mg/dL (70-110)
[2024-01-21 03:44] LABS: Glucose,Whole Blood 147 mg/dL (70-110)
[2024-01-21 06:34] LABS: Glucose,Whole Blood 77 mg/dL (70-110)
--- NOTE | 2024-01-21 06:52 | P.PN ---
Subjective Progress Note Date: 01/21/24 Principal diagnosis: History of tongue and neck cancer with right occipital mass and surrounding edema. Mr. 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 He also has diabetes, and thyroid disorder. Patient was admitted to [facility] on January 19, 2024 after he had been complaining of left-sided weakness and was noted to have altered mental status. Of note he has a left occipital mass we have been diagnosed and he was formally taking Decadron 4 mg 4 times daily. Approximate a month ago he was weaning down by his doctor in preparation for radiotherapy. He was weaned down to 4 mg daily on the dexamethasone and his last dose was on Thanksgiving. The patient apparently woke up on yesterday morning and noted some left-sided weakness and was also been noted to have slow responsiveness. He has a dilated left pupil which has been present for years and does not represent any complication from his current metastasis. He denies any seizures but was loaded with Keppra 1000 mg in the emergency room. I initially came in as a code stroke and his NIH was reported as 12. However his noncontrast CT of this scan of the head revealed increased density mass in the right occipital lobe 2.1 cm with some surrounding vasogenic edema and 3 mm of [id number] shift. He was given a 20 mg Decadron bolus and is currently maintained on 6 mg every 6 hours. This morning the patient is somewhat fatigued however he is arousable and communicative with some mild to moderate dysarthria. When seen initially by neurology on January 20, 2024 he was started on dexamethasone 6 mg every 6 hours after a bolus of 20 mg to help with the cerebral edema. He was noted to be poorly responsive and not moving his left arm with additional left homonymous hemianopia. Left leg movement was roughly 1-2 out of 5 at the toes. When reexamined on January 20, the patient is more awake and communicative. He still exhibits flaccidity of the left arm and the left foot will withdraw 1-2 out of 5 strength strength. He appears to have a left homonymous hemianopia, however he exhibits fairly significant left-sided neglect as well, as he does not recognize when he is being touched on the left side when limbs are touched bilaterally. This may indicate a right hemisphere dysfunction which may improve with steroids. Nursing noted that he was withdrawing his left arm last night, however this morning he does not appear to be moving it as well. Remainder of the neurologic exam revealed the patient did not have any facial droop and extraocular muscles appeared intact. Reflexes were symmetric and he did not h ave any upgoing toes. Assessment: Mr. 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 He had been recently decreased out his dexamethasone and has had increasing edema. He has now flaccid on his left arm and exhibits increased weakness on his left side with a left homonymous hemianopia. This is likely due to the increased edema surrounding his mass. 1. The patient will continue on dexamethasone 6 mg every 6 hours for cerebral edema surrounding his right occipital mass. 2. Given that there is a component of left-sided neglect, I am hopeful that this may explain some of the apparent weakness of his left arm and left leg. This may improve with continued decrease in his cerebral edema. 3. He should undergo serial brain CT scans to check on the degree of cerebral edema. I do not believe I need to order one today, but we may order another one next week. 4. Dr. Dayne Joyner should be covering for neurology tomorrow and will follow along with the patient and give further recommendations as needed. Objective - Vital Signs Vital signs: Vital Signs Temp 97.7 F 01/21/24 04:00 Pulse 61 01/21/24 06:00 Resp 16 01/21/24 06:00 BP 126/91 01/21/24 06:00 Pulse Ox 100 01/21/24 06:00 FiO2 40 01/20/24 08:16 Intake & Output 01/20/24 01/20/24 01/21/24 06:59 18:59 06:59 Intake Total 451.259 8417 Output Total 1200 1945 900 Balance -345.800 -270 -900 Weight 79.1 kg 79.1 kg 78.6 kg Intake: IV 850 Magnesium Sulfate-D5w Pmx 400 1 gm In Dextrose/Water 1 100ml.bag @ 100 mls/hr IVPB Q1H ANN Rx#: [id number] Sodium Chloride 0.9% 1, 450 000 ml @ 75 mls/hr IV . [id number] STA Rx#:[id number] Intake, IV Titration 854.200 75 Amount Insulin Regular 100 unit 29.200 In Sodium Chloride 0.9% 100 ml @ Titrate IV .Q0M [facility] Rx#:[id number] Sodium Chloride 0.9% 1, 825 75 000 ml @ 75 mls/hr IV . [id number] STA Rx#:[id number] Oral 750 Output: Drainage 495 Left Chest 495 Urine 1200 1450 900 Other: Voiding Method External Catheter External Catheter External Catheter - Labs CBC & Chem 7: 01/20/24 07:05 01/20/24 07:05 Labs: Abnormal Lab Results - Last 24 Hours (Table) 01/20/24 01/20/24 01/20/24 Range/Units 06:53 07:05 07:05 RBC 3.40 L (4.30-5.90) m/uL Hgb 10.9 L (13.0-17.5) gm/dL Hct 35.1 L (39.0-53.0) % MCV 103.2 H (80.0-100.0) fL MCHC 30.9 L (31.0-37.0) g/dL RDW 16.8 H (11.5-15.5) % Neutrophils # 8.1 H (1.3-7.7) k/uL Lymphocytes # 0.4 L (1.0-4.8) k/uL Sodium 133 L (137-145) mmol/L Creatinine 0.49 L (0.66-1.25) mg/dL Glucose 107 H (74-99) mg/dL POC Glucose (mg/dL) 131 H (70-110) mg/dL Calcium 6.9 L (8.4-10.2) mg/dL Magnesium 1.3 L (1.6-2.3) mg/dL 01/20/24 01/20/24 01/20/24 Range/Units 08:14 12:10 16:45 RBC (4.30-5.90) m/uL Hgb (13.0-17.5) gm/dL Hct (39.0-53.0) % MCV (80.0-100.0) fL MCHC (31.0-37.0) g/dL RDW (11.5-15.5) % Neutrophils # (1.3-7.7) k/uL Lymphocytes # (1.0-4.8) k/uL Sodium (137-145) mmol/L Creatinine (0.66-1.25) mg/dL Glucose (74-99) mg/dL POC Glucose (mg/dL) 122 H 121 H 214 H (70-110) mg/dL Calcium (8.4-10.2) mg/dL Magnesium (1.6-2.3) mg/dL 01/20/24 01/21/24 01/21/24 Range/Units 19:42 03:20 03:42 RBC (4.30-5.90) m/uL Hgb (13.0-17.5) gm/dL Hct (39.0-53.0) % MCV (80.0-100.0) fL MCHC (31.0-37.0) g/dL RDW (11.5-15.5) % Neutrophils # (1.3-7.7) k/uL Lymphocytes # (1.0-4.8) k/uL Sodium (137-145) mmol/L Creatinine (0.66-1.25) mg/dL Glucose (74-99) mg/dL POC Glucose (mg/dL) 249 H 53 L 147 H (70-110) mg/dL Calcium (8.4-10.2) mg/dL Magnesium (1.6-2.3) mg/dL
--- NOTE | 2024-01-21 06:52 | XR ---
EXAMINATION TYPE: XR chest 1V portable DATE OF EXAM: 01/21/2024 COMPARISON: 01/20/2024 CLINICAL INDICATION: Male, 63 years old with history of Left lng wan out on previous x-ray; TECHNIQUE: Single frontal view of the chest is obtained. FINDINGS: The diffuse opacification of the left hemithorax is stable. There is a stable diffuse inte rstitial process in the right lung.. There is no pneumothorax. The osseous structures are intact IMPRESSION: No change in the bilateral acute cardiopulmonary process, left much greater than right. [facility], , 01/21/2024 6:50 AM
[2024-01-21 07:39] LABS: Anisocytosis Slight; HCT 36.9 % (39.0-53.0); HGB 11.7 gm/dL (13.0-17.5); MCH 31.4 pg (25.0-35.0); MCHC 31.6 g/dL (31.0-37.0); MCV 99.1 fL (80.0-100.0); Macrocytosis Slight; Platelet Count 447 k/uL (150-450); RBC 3.72 m/uL (4.30-5.90); RDW 16.8 % (11.5-15.5); WBC 9.1 k/uL (3.8-10.6)
[2024-01-21 07:54] LABS: ALT 53 U/L (4-49); AST 45 U/L (17-59); African American GFR (CKD) >90 (>60 ml/min/1.73 sqM); Albumin 3.2 g/dL (3.5-5.0); Alkaline Phosphatase 210 U/L (38-126); Anion Gap 4 mmol/L; Blood Urea Nitrogen 23 mg/dL (9-20); Calcium 8.5 mg/dL (8.4-10.2); Carbon Dioxide 34 mmol/L (22-30); Chloride 88 mmol/L (98-107); Glucose 75 mg/dL (74-99); Magnesium 1.8 mg/dL (1.6-2.3); Non-African American GFR(CKD) >90 (>60 ml/min/1.73 sqM); Potassium 4.9 mmol/L (3.5-5.1); Sodium 126 mmol/L (137-145); Total Bilirubin 0.6 mg/dL (0.2-1.3); Total Protein 6.1 g/dL (6.3-8.2)
[2024-01-21 08:59] LABS: Glucose,Whole Blood 145 mg/dL (70-110)
[2024-01-21 11:24] LABS: Glucose,Whole Blood 390 mg/dL (70-110)
--- NOTE | 2024-01-21 12:53 | P.PN ---
Subjective Progress Note Date: 01/21/24 This is a 64-year-old male patient was admitted to the intensive care unit for recurrent seizures. 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 Subsequently, he was lost to follow-up and he presented back to us with a large left upper lobe mass and I performed bronchoscopy on this patient back in August 2023 and the findings were consistent with squamous cell carcinoma. The PET scan from September 2023 showed left upper lobe mass, PET avid in addition to metastatic activity involving the mediastinum and the right supraclavicular and bilateral lymph node lymphadenopathy in addition to left inferior pleural space FDG uptake and metastatic mediastinal lymphadenopathy. The patient was started on systemic treatment including a combination of carboplatinum, Alimta and Keytruda. While taking his second cycle of treatment, on 12/15/2023, the patient was noted to being have increased shortness of breath. He was sent to the emergency department and a CT angiogram of the chest was done and the patient was found to have small segmental branch pulmonary embolism involving the right lower lobe. Minimal overall clot burden. There was new moderate to large left-sided effusion along with atelectatic collapse of the left lower lobe. New moderate right-sided pleural effusion with adjacent atelectasis. There was also pleural nodularity in the posterior left upper lobe, additional disease progression with new pericardial lymphadenopathy measuring up to 2.1 cm in size and there was also a large left upper lobe mass encasing the left hilum that was measuring 11.9 cm in size with metastatic mediastinal and hilar lymphadenopathy and the patient had shown some partial response as the patient was receiving systemic chemotherapy. The echocardiogram that was done at that time on 12/15/2023 showed preserved LV function, normal RV size and function. Venous Doppler of the lower extremity that was done on 12/16/2023 showed no evidence of any DVT. Noted, the patient had a Pleurx catheter insertion on 12/19/2023 into the left pleural space and the fluid cytology was essentially negative for carcinoma or malignancy. The patient was discharged home and anticoagulation with Eliquis. Readmitted to the hospital on 12/28/2023 with altered mentation. The patient had unresponsiveness and new onset seizures. MRI of the brain was done and the patient was found to have right parietal/occipital mass with vasogenic edema. The patient was started on Keppra and Decadron. Anticoagulation was stopped and the patient was given an IVC filter on 01/02/2024 and the patient was discharged home on 01/03/2024 and he was advised to continue Decadron 4 mg p.o. 3 times daily and Keppra 750 mg p.o. twice daily. The patient was also seen by radiation oncology. Received SBRT to his brain, a total of 3 sessions earlier this week. The patient came into the emergency department today with strokelike symptoms and left-sided weakness. The patient also had altered mentation. His last known normal was unclear but this was sometime yesterday night. The patient was experiencing left-sided weakness, facial droop and dysarthria. He also had developed a dilated left pupil which was noted few weeks back. CT scan of the brain was done in Emergency Department and the patient was found to have a 2 point centimeter lesion that had been enlarging compared to the previous CAT scan of the brain that was done on 12/28/2023. The patient had hyperdense right occipital lobe 2.1 cm lesion with increasing surrounding vasogenic edema and a 3 mm left shift from midline. The CTA of the brain was also done and it showed no evidence of dissection of the cervical or internal carotid arteries or vertebral arteries. No evidence of any high-grade stenosis intracranially. There was a enhancing right occipital lobe mass with surrounding vasogenic edema. In the emergency, the patient had also 2 episodes of seizures. The case was discussed with outside facilities regarding transfer and was found that there was no indication for this medical transfer. The patient was started on Decadron 6 mg IV every 6 hours and the patient was kept on Keppra 750 mg IV every 12 hours. He was admitted to the intensive care unit for further management. He seems to be quite obtunded at this point in time. Blood gas was also done in the ICU and the patient was found to have a pH of 7.16 with a pCO2 of 85 and a pO2 of 70 and this was done by the patient being in 60s of oxygen by nasal cannula. Accordingly, the patient was placed on a BiPAP. Chest x-ray has not been done yet. The white cell count is 11.5 with a hemoglobin 12.7 and platelet count of 488. BUN 25 L and 0.6 and a sodium levels at 128. Blood sugar is at 454. Normal UA. Urine drug screen is positive for marijuana and opiates. 01/20/2024, the patient is much more awake compared to yesterday. The patient is unable to move his left upper and left lower extremity. He is able to wiggle his toes and his fingers on the left. Mental status is improved. No further seizure activity has been noted. The patient remains on a combination of Keppra and Decadron. Keppra is 500 mg IV every 12 hours and the patient is also on Decadron at 6 mg IV every 6 hours. The patient was further taken off the BiPAP. He is currently on 2 L of oxygen by nasal cannula. Pulse ox is 98%. Morning blood work shows a WBC count of 8.9, hemoglobin 10.9 and platelet count of 378. BUN is 19 with a creatinine of 0.49 and a sodium levels at 133. He does have a Pleurx catheter in his left chest and a total of 100 cc of pleural fluid was evacuated this morning. The follow-up chest x-ray shows some limited improvement in aeration of the left lung base. . On today's evaluation of 01/21/2024, the patient is free of any seizures. He has not had any seizures over the past 24 hours. Remains on Keppra. Remains on Decadron. He is a bit confused and delirious. Trying to get out of bed. He has a sitter at the bedside. Left side remains weak although there is some limited improving motor function left upper extremity on today's evaluation. The patient has no signs of any respiratory distress. The white cell count is at 9.1 with a hemoglobin 11.7 and a platelet count of 447. BUN is 23 with a creatinine of 0.6. Sodium level is at 126. The patient is drinking liquids. No other significant events overnight. He remains on Levemir insulin 8 units twice daily and sliding scale insulin coverage. Objective - Vital Signs Vital signs: Vital Signs Temp 98.5 F 01/21/24 08:00 Pulse 79 01/21/24 08:00 Resp 26 H 01/21/24 08:00 BP 129/87 01/21/24 08:00 Pulse Ox 100 01/21/24 08:00 FiO2 40 01/20/24 08:16 Intake & Output 01/20/24 01/21/24 01/21/24 18:59 06:59 18:59 Intake Total 1675 Output Total 1945 900 200 Balance -270 -900 -200 Weight 79.1 kg 78.6 kg Intake: IV 850 Magnesium Sulfate-D5w Pmx 400 1 gm In Dextrose/Water 1 100ml.bag @ 100 mls/hr IVPB Q1H ANN Rx#: [id number] Sodium Chloride 0.9% 1, 450 000 ml @ 75 mls/hr IV . [id number] STA Rx#:[id number] Intake, IV Titration 75 Amount Sodium Chloride 0.9% 1, 75 000 ml @ 75 mls/hr IV . [id number] STA Rx#:[id number] Oral 750 Output: Drainage 495 Left Chest 495 Urine 1450 900 200 Other: Voiding Method External Catheter External Catheter - Exam GENERAL EXAM: Alert, 63-year-old male, awake and alert and confused on room air oxygen HEAD: Normocephalic. EYES: Dilated left pupil NOSE: Clear with pink turbinates. THROAT: No erythema or exudates. NECK: No masses, no JVD. CHEST: No chest wall deformity. LUNGS: Equal air entry with bibasilar crackles, left greater than right, diminished left lung base. CVS: S1 and S2 normal with no audible murmur, regular rhythm. ABDOMEN: No hepatosplenomegaly, normal bowel sounds, no guarding or rigidity. SPINE: No scoliosis or deformity SKIN: No rashes CENTRAL NERVOUS SYSTEM: Left-sided weakness, dilated left pupil, free of any seizures. The patient opened his eyes upon stimulation. Awake and alert and communicating. Left-sided paralysis is unchanged. The patient is confused and delirious. EXTREMITIES: There is no peripheral edema. No clubbing, no cyanosis. Peripheral pulses are intact. - Labs CBC & Chem 7: 01/21/24 05:40 01/21/24 05:40 Labs: Abnormal Lab Results - Last 24 Hours (Table) 01/20/24 01/20/24 01/20/24 Range/Units 12:10 16:45 19:42 RBC (4.30-5.90) m/uL Hgb (13.0-17.5) gm/dL Hct (39.0-53.0) % RDW (11.5-15.5) % Sodium (137-145) mmol/L Chloride (98-107) mmol/L Carbon Dioxide (22-30) mmol/L BUN (9-20) mg/dL POC Glucose (mg/dL) 121 H 214 H 249 H (70-110) mg/dL ALT (4-49) U/L Alkaline Phosphatase (38-126) U/L Total Protein (6.3-8.2) g/dL Albumin (3.5-5.0) g/dL 01/21/24 01/21/24 01/21/24 Range/Units 03:20 03:42 05:40 RBC 3.72 L (4.30-5.90) m/uL Hgb 11.7 L (13.0-17.5) gm/dL Hct 36.9 L (39.0-53.0) % RDW 16.8 H (11.5-15.5) % Sodium (137-145) mmol/L Chloride (98-107) mmol/L Carbon Dioxide (22-30) mmol/L BUN (9-20) mg/dL POC Glucose (mg/dL) 53 L 147 H (70-110) mg/dL ALT (4-49) U/L Alkaline Phosphatase (38-126) U/L Total Protein (6.3-8.2) g/dL Albumin (3.5-5.0) g/dL 01/21/24 Range/Units 05:40 RBC (4.30-5.90) m/uL Hgb (13.0-17.5) gm/dL Hct (39.0-53.0) % RDW (11.5-15.5) % Sodium 126 L (137-145) mmol/L Chloride 88 L (98-107) mmol/L Carbon Dioxide 34 H (22-30) mmol/L BUN 23 H (9-20) mg/dL POC Glucose (mg/dL) (70-110) mg/dL ALT 53 H (4-49) U/L Alkaline Phosphatase 210 H (38-126) U/L Total Protein 6.1 L (6.3-8.2) g/dL Albumin 3.2 L (3.5-5.0) g/dL Assessment and Plan Plan: Seizures, 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 The patient also has an enlarging right occipital brain lesion measuring 2.1 cm in size with surrounding edema and 3 mm leftward midline shift. The patient is currently on a combination of Decadron and Keppra. Neurology on the case. Continues to have paralysis of the left upper and left lower extremity. Delirium/confusion, multifactorial. Acute hypoxic/hypercapnic respiratory failure, currently off the BiPAP and patient is on room air oxygen Metastatic LEIS[employer] TRAV[employer]ENT lesion, right occipital, currently on Decadron, status post SBRT Left-sided weakness, rule out Anuj's paralysis following seizure. Rule out motor deficits related to metastatic brain lesion and vasogenic edema, clinically unchanged Metastatic squamous cell carcinoma of the lung versus metastatic from head and neck/tongue cancer from 2021, initiated on a combination of carboplatin Alimta and Keytruda on 12/06/2023 and the patient received only 1 cycle. History of tongue cancer Left upper lobe mass measuring 12 cm in size with extensive mediastinal lymphadenopathy consistent with metastatic disease Pulmonary embolism, small segmental, status post IVC filter placement History of Pleurx catheter insertion for a left-sided pleural effusion, pleural fluid cytology has been negative for malignancy, left lung is quite opacified due to a left upper lobe tumor, atelectasis and a left-sided pleural effusion. Diabetes mellitus with steroid-induced hyperglycemia Hypothyroidism Plan Patient is currently on room air oxygen Drain the left hemithorax through the Pleurx catheter, a total of 400 cc of pleural fluid was evacuated at the time of admission another 7 cc was aspirated yesterday and a chest x-ray showing some improvement in aeration left lung base Swallow evaluation Monitor mental status Start the patient on Seroquel 100 mg p.o. daily Continue IV Decadron 6 mg every 6 hours Continue IV Keppra Levemir insulin 8 units twice daily along with a sliding scale coverage Patient has an IVC filter placement No anticoagulants for now IV fluids to KVO Monitor sodium level IV Protonix Consult neurology consult radiation oncology Consult hematology oncology extremely poor prognosis based on above, current CODE STATUS is full. Will strongly support changing his CODE STATUS to DNR/DNI. Will have further discussion with the . Critical care evaluation that was done more than 30 minutes. . Time with Patient: Greater than 30
[2024-01-21 13:48] LABS: African American GFR (CKD) >90 (>60 ml/min/1.73 sqM); Anion Gap 7 mmol/L; Blood Urea Nitrogen 28 mg/dL (9-20); Calcium 8.7 mg/dL (8.4-10.2); Carbon Dioxide 26 mmol/L (22-30); Chloride 89 mmol/L (98-107); Glucose 359 mg/dL (74-99); Non-African American GFR(CKD) >90 (>60 ml/min/1.73 sqM); Potassium 4.7 mmol/L (3.5-5.1); Sodium 122 mmol/L (137-145)
--- NOTE | 2024-01-21 14:47 | P.PN ---
Subjective Progress Note Date: 01/21/24 Patient is a 63-year-old male with 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 Known left-sided weakness with left pupil dilatation. CT of the brain demonstrated 2.1 cm lesion enlarging from prior with worsening vasogenic edema and left midline shift. Had 1 seizure with EMS. Initial vital signs were remarkable for tachycardia with heart rate of 102 and blood pressure of 184/117. Initial laboratory analysis was remarkable for white blood cell count 11.5, hemoglobin 12.7, platelets 488, sodium 128. At that time ABG showed a pH of 7.16 with a pCO2 of 85. Additionally patient underwent CTA of the head and neck which showed no significant stenosis. Chest x-ray showed increasing interstitial density concerning for pulmonary vascular congestion with ongoing volume loss and extensive pleural opacity throughout the left hemithorax with left basilar Pleurx catheter in place. Patient was admitted to the ICU with breakthrough seizure. Patient had 1 seizure with EMS and 2 seizures in the emergency department the second requiring the use of Ativan to abort the seizure. Neurology and critical care were consulted. Consideration was made for transfer but it was found that there is no indication for medical transfer. Patient was started on Decadron 6 mg IV every 6 hours and Keppra 750 mg IV every 12 hours. Was started on BiPAP due to the ABG results which was weaned off by 01/19, was briefly on an insulin gtt. Sodium dropped on 01/20. Patient seen and examined at bedside. Feeling less tired than yesterday. No chest pain, still with left sided weakness, had a slight headache this morning, but no nausea. Had some agitation and no BM today. 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 Recommended serial CT scans to check degree of cerebral edema. - Oncology recommendations reviewed: Has undergone 1 cycle of systemic therapy with 3 rounds of radiation. - Pulmonary recommendations reviewed: Continue Keppra and Decadron. No anticoagulation for now has IVC filter in place. Poor prognosis. Hyponatremia, concerns for SAIDH vs cerebral salt wasting vs voume depletion - repeat BMP at 1300 - serum/urine osmol, urine Na - resutls d/w Dr. Hartman and Dr. Danielle, target will be return to normal sodium with slow increase goal 8-10 in 24 hours, fluid restriction and NS at 75 mllhr, repeat head CT. No need for hypernatremia due to edema, repeat sodium at 1800. DM2 with hypo and hyperglycemia - change levmir to 8 unit BID, as hyperglycemia in am and hypoglycemia over night. -A1c 8.2 Anemia, likely multifactorial -Follow CBC -No indication for transfusion at this time Hypomagnesemia, resolved Thrombocytosis, resolved Acute hypercapnic respiratory failure, resolved Imaging: None new Data Review: Labs reviewed from today include CBC CMP, and magnesium level which are remarkable for hemoglobin of 11.7, had 1 episode of hypoglycemia overnight with blood sugar of 53, Labs reviewed from today include CBC which is remarkable for hemoglobin of 11.7, BNP which was remarkable for sodium of 126. DVT prophylaxis: SCDs, s/p IVC filter Anticipated discharge date: Pending Clinical Course Anticipated discharge place: Pending Clinical Course This dictation was prepared using [employer] voice recognition software. Though every attempt is made to correct errors during dictation some may still exist. Objective - Vital Signs Vital signs: Vital Signs Temp 97.7 F 01/21/24 04:00 Pulse 61 01/21/24 07:00 Resp 20 01/21/24 07:00 BP 133/85 01/21/24 07:00 Pulse Ox 100 01/21/24 07:00 FiO2 40 01/20/24 08:16 Intake & Output 01/20/24 01/21/24 01/21/24 18:59 06:59 18:59 Intake Total 1675 Output Total 1945 900 0 Balance -270 -900 0 Weight 79.1 kg 78.6 kg Intake: IV 850 Magnesium Sulfate-D5w Pmx 400 1 gm In Dextrose/Water 1 100ml.bag @ 100 mls/hr IVPB Q1H ANN Rx#: [id number] Sodium Chloride 0.9% 1, 450 000 ml @ 75 mls/hr IV . [id number] STA Rx#:[id number] Intake, IV Titration 75 Amount Sodium Chloride 0.9% 1, 75 000 ml @ 75 mls/hr IV . [id number] STA Rx#:[id number] Oral 750 Output: Drainage 495 Left Chest 495 Urine 1450 900 0 Other: Voiding Method External Catheter External Catheter - Labs CBC & Chem 7: 01/21/24 05:40 01/21/24 13:17 Labs: Abnormal Lab Results - Last 24 Hours (Table) 01/20/24 01/20/24 01/20/24 Range/Units 08:14 12:10 16:45 RBC (4.30-5.90) m/uL Hgb (13.0-17.5) gm/dL Hct (39.0-53.0) % RDW (11.5-15.5) % Sodium (137-145) mmol/L Chloride (98-107) mmol/L Carbon Dioxide (22-30) mmol/L BUN (9-20) mg/dL POC Glucose (mg/dL) 122 H 121 H 214 H (70-110) mg/dL ALT (4-49) U/L Alkaline Phosphatase (38-126) U/L Total Protein (6.3-8.2) g/dL Albumin (3.5-5.0) g/dL 01/20/24 01/21/24 01/21/24 Range/Units 19:42 03:20 03:42 RBC (4.30-5.90) m/uL Hgb (13.0-17.5) gm/dL Hct (39.0-53.0) % RDW (11.5-15.5) % Sodium (137-145) mmol/L Chloride (98-107) mmol/L Carbon Dioxide (22-30) mmol/L BUN (9-20) mg/dL POC Glucose (mg/dL) 249 H 53 L 147 H (70-110) mg/dL ALT (4-49) U/L Alkaline Phosphatase (38-126) U/L Total Protein (6.3-8.2) g/dL Albumin (3.5-5.0) g/dL 01/21/24 01/21/24 Range/Units 05:40 05:40 RBC 3.72 L (4.30-5.90) m/uL Hgb 11.7 L (13.0-17.5) gm/dL Hct 36.9 L (39.0-53.0) % RDW 16.8 H (11.5-15.5) % Sodium 126 L (137-145) mmol/L Chloride 88 L (98-107) mmol/L Carbon Dioxide 34 H (22-30) mmol/L BUN 23 H (9-20) mg/dL POC Glucose (mg/dL) (70-110) mg/dL ALT 53 H (4-49) U/L Alkaline Phosphatase 210 H (38-126) U/L Total Protein 6.1 L (6.3-8.2) g/dL Albumin 3.2 L (3.5-5.0) g/dL
[2024-01-21] MEDS: SODIUM CHLORIDE 0.9% 1,000 ML IV SCH (14:55)
[2024-01-21 16:51] LABS: Glucose,Whole Blood 399 mg/dL (70-110)
--- NOTE | 2024-01-21 18:28 | CT ---
EXAMINATION TYPE: CT brain wo con DATE OF EXAM: 01/21/2024 6:18 PM COMPARISON: Recent CT head study 01/19/2024. CLINICAL INDICATION: Male, 63 years old with history of brain edema, Brain edema TECHNIQUE: Brain: Axial CT images of the brain were obtained with coronal and sagittal reformats created and rev iewed. Contrast used: None. Oral contrast used: None. CT DLP: 1133.4 mGycm, Automated exposure control for dose reduction was used. FINDINGS: Brain: No new acute intracranial hemorrhage. Mass effect on the right-sided ventricular system, similar to p rior study. Redemonstration hyperdense mass in the right occipital lobe measuring approximately 2.1 c m (axial image 39) with extensive surrounding vasogenic edema. Additional questionable mass abutting the falx measuring 2.1 cm (image 35). Overall, extent of surrounding vasogenic edema appears similar to recent study 01/19/2024. There is persistent leftward midline shift of the septum pellucidum, slig htly increasing from prior study now measuring 5.4 mm compared to 3 mm previously it measured in a si milar fashion. Basal cisterns appear grossly patent. No sizable extra-axial fluid collection. Mucosal thickening of the left maxillary sinus partially visualized. Mastoid air cells and remaining portion s of the visualized paranasal sinuses appear patent. Bilateral cataract lens extraction noted. No dep ressed calvarial fracture. No large scalp hematoma. IMPRESSION: Extensive vasogenic edema in the right occipital and parietal lobes, felt to most likely reflect sequ elae of metastatic disease, similar to recent study 01/19/2024. Questionable slightly increasing left brown midline shift as above. [facility], , 01/21/2024 6:26 PM
[2024-01-21 18:32] LABS: African American GFR (CKD) >90 (>60 ml/min/1.73 sqM); Anion Gap 5 mmol/L; Blood Urea Nitrogen 24 mg/dL (9-20); Calcium 7.1 mg/dL (8.4-10.2); Carbon Dioxide 24 mmol/L (22-30); Chloride 96 mmol/L (98-107); Glucose 298 mg/dL (74-99); Non-African American GFR(CKD) >90 (>60 ml/min/1.73 sqM); Sodium 125 mmol/L (137-145)
[2024-01-21] MEDS: INSULIN DETEMIR (LEVEMIR) 100 UNIT/ML SYR SQ SCH (20:38)
[2024-01-21 20:40] LABS: Glucose,Whole Blood 338 mg/dL (70-110)
[2024-01-21] MEDS: QUEtiapine 100 MG TAB PO SCH (20:45)
[2024-01-21 21:31] LABS: African American GFR (CKD) >90 (>60 ml/min/1.73 sqM); Anion Gap 3 mmol/L; Blood Urea Nitrogen 24 mg/dL (9-20); Calcium 7.3 mg/dL (8.4-10.2); Carbon Dioxide 28 mmol/L (22-30); Chloride 93 mmol/L (98-107); Glucose 287 mg/dL (74-99); Non-African American GFR(CKD) >90 (>60 ml/min/1.73 sqM); Potassium 4.3 mmol/L (3.5-5.1); Sodium 124 mmol/L (137-145)
[2024-01-21] MEDS: SODIUM CHLORIDE TAB 1 GM TAB PO STA (22:49)
[2024-01-22 02:06] LABS: Glucose,Whole Blood 160 mg/dL (70-110)
[2024-01-22 06:02] LABS: Anisocytosis Slight; HCT 36.8 % (39.0-53.0); HGB 12.3 gm/dL (13.0-17.5); MCHC 33.4 g/dL (31.0-37.0); MCV 95.7 fL (80.0-100.0); Macrocytosis Slight; Mean Platelet Volume 7.2; Platelet Count 500 k/uL (150-450); RBC 3.84 m/uL (4.30-5.90); RDW 17.2 % (11.5-15.5); WBC 6.6 k/uL (3.8-10.6)
[2024-01-22 06:16] LABS: Glucose,Whole Blood 96 mg/dL (70-110)
[2024-01-22] MEDS: INSULIN DETEMIR (LEVEMIR) 100 UNIT/ML SYR SQ SCH (06:18)
[2024-01-22 06:27] LABS: ALT 52 U/L (4-49); AST 43 U/L (17-59); African American GFR (CKD) >90 (>60 ml/min/1.73 sqM); Albumin 3.1 g/dL (3.5-5.0); Alkaline Phosphatase 192 U/L (38-126); Anion Gap 1 mmol/L; Blood Urea Nitrogen 22 mg/dL (9-20); Calcium 8.6 mg/dL (8.4-10.2); Carbon Dioxide 32 mmol/L (22-30); Chloride 90 mmol/L (98-107); Glucose 91 mg/dL (74-99); Magnesium 1.6 mg/dL (1.6-2.3); Non-African American GFR(CKD) >90 (>60 ml/min/1.73 sqM); Phosphorus 3.5 mg/dL (2.5-4.5); Potassium 4.6 mmol/L (3.5-5.1); Sodium 123 mmol/L (137-145); Total Bilirubin 0.9 mg/dL (0.2-1.3); Total Protein 6.1 g/dL (6.3-8.2)
--- NOTE | 2024-01-22 08:04 | XR ---
EXAMINATION TYPE: XR chest 1V portable DATE OF EXAM: 01/22/2024 5:36 AM COMPARISON: 01/21/2024 CLINICAL INDICATION: Male, 63 years old with history of effusion, , FINDINGS: Volume loss and near complete whiteout left hemithorax redemonstrated. Mild interstitial density on t he right shows improvement from prior. Left heart margin obscured by adjacent pleural parenchymal opa city. Basilar pleural catheter on the left. IMPRESSION: Volume loss and near-complete whiteout persists left hemithorax with pleural catheter at the left bas e. Interstitial density on the right is improving. [facility], , 01/22/2024 8:01 AM
[2024-01-22] MEDS ORDERED: Magnesium Replacement Protocol 1 EACH MISC MISCELLANE PRN (09:16)
[2024-01-22] MEDS: MAGNESIUM SULFATE-D5W PMX 1 GM in DEXTROSE/WATER 1 100ML.BAG IVPB SCH (09:33)
[2024-01-22] MEDS: SODIUM CHLORIDE 3%(HYPERTONIC) 500 ML IV ONE (09:34)
--- NOTE | 2024-01-22 09:53 | P.NPCON ---
History of Present Illness - Reason for Consult hyponatremia - History of Present Illness Reason for consultation: Hyponatremia History of present illness: Patient is a 63-year-old male seen in renal consultation for hyponatremia. Sodium level 128 on admission and did improve to 133 January 20, 2024. Last 2 days sodium level has been in the range of 1 22-1 25. Patient did receive fluids yesterday and sodium went up to 125 but then dropped down to 124 and IV fluids were discontinued. Patient came to the hospital on January 19, 2024 due to strokelike symptoms. Patient has history of tongue and neck cancer and has been maintained on chemo and radiation. He has metastatic disease to the brain as well as left lung. Patient is quite lethargic and not a very reliable historian. He has history of seizures and is also maintained on Keppra. He does have history of diabetes. Denies use of nonsteroidals. Oral intake is poor. Blood pressure on the higher end. He is on 2 L nasal cannula. Vital signs are stable. General: Resting in bed. Lethargic. HEENT: Head exam is unremarkable. On nasal cannula. LUNGS: No audible rhonchi or wheezes. HEART: Rate and Rhythm are regular. ABDOMEN: Nontender. EXTREMITITES: No edema. 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 Squamous cell carcinoma of the lung, metastatic. Pulmonary embolism. History of left-sided pleural effusion post Pleurx catheter insertion. History of IVC filter placement History of Any Multi-Drug Resistant Organisms: None Reported Past Surgical History: Orthopedic Surgery (Right ankle surgery) Additional Past Surgical History / Comment(s): eye surgery-BILAT GLAUCOMA. 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 AGO LT [facility] Past Anesthesia/Blood Transfusion Reactions: No Reported Reaction Past Psychological History: No Psychological Hx Reported Smoking Status: Never smoker Past Alcohol Use History: None Reported Past Drug Use History: None Reported Additional Drug Use History / Comment(s): Remote history of marijuana use - Past Family History Mother Family Medical History: No Reported History Father Additional Family Medical History / Comment(s): EtOH abuse Medications and Allergies Home Medications Medication Instructions Recorded Confirmed Type Multivitamins, Thera [Multivitamin 1 tab PO DAILY 09/02/21 01/19/24 History (formulary)] Levothyroxine Sodium [Synthroid] 175 mcg PO DAILY 08/30/23 01/19/24 History Dorzolamide-Timol 2.23%/0.68% 1 drop BOTH EYES BID 12/16/23 01/19/24 History [Cosopt] HYDROcodone/APAP 10-325MG [Matthews 1 tab PO Q6H PRN 12/16/23 01/19/24 History 10-325] Insulin Aspart [NovoLOG Flexpen] See Protocol SQ AC-TID 12/16/23 01/19/24 History Insulin Glargine,Hum.rec.anlog 16 units SQ HS 12/16/23 01/19/24 History [Lantus Solostar Pen] dexAMETHasone [Decadron] 4 mg PO TID 14 Days #42 tablet 01/03/24 01/19/24 Rx levETIRAcetam [Keppra] 750 mg PO BID 30 Days #60 tab 01/03/24 01/19/24 Rx Allergies Allergy/AdvReac Type Severity Reaction Status Date / Time No Known Allergies Allergy Verified 01/19/24 13:57 Physical Exam Vitals: Vital Signs Temp Pulse Resp BP Pulse Ox 01/22/24 07:00 70 15 151/105 97 01/22/24 06:00 78 16 151/102 96 01/22/24 05:00 63 29 H 149/96 99 01/22/24 04:00 63 17 133/98 99 01/22/24 03:00 60 16 136/91 96 01/22/24 02:00 63 14 133/90 97 01/22/24 01:00 61 15 146/93 97 01/22/24 00:00 70 18 140/94 98 01/21/24 23:00 64 15 138/91 99 01/21/24 22:00 66 15 143/92 98 01/21/24 21:00 66 19 138/102 97 01/21/24 20:00 98.5 F 66 15 138/95 97 01/21/24 19:00 68 8 L 141/98 96 01/21/24 18:00 81 15 133/94 01/21/24 17:00 73 16 130/91 98 01/21/24 16:00 98.4 F 80 15 130/86 95 01/21/24 15:00 80 24 140/93 98 01/21/24 14:00 84 14 133/100 98 01/21/24 13:00 89 24 132/90 99 01/21/24 12:00 98.5 F 78 17 130/87 99 01/21/24 11:00 76 21 138/91 98 01/21/24 10:00 85 13 142/95 99 Intake and Output 01/21/24 01/22/24 01/22/24 22:59 06:59 14:59 Intake Total 1020 0 333 Output Total 1000 1200 Balance 20 -1200 333 Intake: Intake, IV Titration 450 0 Amount Sodium Chloride 0.9% 1, 450 0 000 ml @ 75 mls/hr IV . [id number] [facility] Rx#:[id number] Oral 570 333 Output: Chest Tube Drainage 50 Pleural Catheter 50 Urine 950 1200 Other: Voiding Method External Catheter External Catheter Weight 72.4 kg Results - Lab Results Most recent lab results ABG pH 7.33 (7.35-7.45) L 01/20/24 04:33 ABG pCO2 63 mmHg (35-45) H 01/20/24 04:33 ABG pO2 124 mmHg (83-108) H 01/20/24 04:33 ABG HCO3 33 mmol/L (21-25) H 01/20/24 04:33 ABG O2 Saturation 97.7 % (94-97) H 01/20/24 04:33 Calcium 8.6 mg/dL (8.4-10.2) 01/22/24 05:20 Phosphorus 3.5 mg/dL (2.5-4.5) 01/22/24 05:20 Magnesium 1.6 mg/dL (1.6-2.3) 01/22/24 05:20 01/22/24 05:20 01/22/24 05:20 Assessment and Plan Plan: Assessment: 1. Hyponatremia. 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 Cerebral salt wasting less likely as patient does not appear hypovolemic. So dium level 123 this morning. It has been in the range of 1 24- 28 since November 2023. Patient received IV fluids yesterday and sodium did improve from 22-1 25 but then dropped to 124. Status post salt tab last night urine sodium 147 and urine osmolality 529. These were drawn after the patient had received IV fluids. 2. 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 Maintained on chemotherapy and radiation. Vasogenic edema in the right occipital and parietal lobes noted on brain CT reflective of metastatic disease. Neurology and oncology following. 3. Diabetes mellitus. 4. Hypomagnesemia from poor intake. Being replaced. Plan: Start 3% saline at 25 cc an hour. Will discontinue once sodium level gets to 127. Check TSH. Maintain fluid restriction. Brain MRI pending. Thank you for the consultation. I will continue to follow the patient with you during his hospital stay.
--- NOTE | 2024-01-22 11:23 | P.PN ---
Subjective Progress Note Date: 01/22/24 Patient is a 63-year-old male with 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 Known left-sided weakness with left pupil dilatation. CT of the brain demonstrated 2.1 cm lesion enlarging from prior with worsening vasogenic edema and left midline shift. Had 1 seizure with EMS. Initial vital signs were remarkable for tachycardia with heart rate of 102 and blood pressure of 184/117. Initial laboratory analysis was remarkable for white blood cell count 11.5, hemoglobin 12.7, platelets 488, sodium 128. At that time ABG showed a pH of 7.16 with a pCO2 of 85. Additionally patient underwent CTA of the head and neck which showed no significant stenosis. Chest x-ray showed increasing interstitial density concerning for pulmonary vascular congestion with ongoing volume loss and extensive pleural opacity throughout the left hemithorax with left basilar Pleurx catheter in place. Patient was admitted to the ICU with breakthrough seizure. Patient had 1 seizure with EMS and 2 seizures in the emergency department the second requiring the use of Ativan to abort the seizure. Neurology and critical care were consulted. Consideration was made for transfer but it was found that there is no indication for medical transfer. Patient was started on Decadron 6 mg IV every 6 hours and Keppra 750 mg IV every 12 hours. Was started on BiPAP due to the ABG results which was weaned off by 01/19, was briefly on an insulin gtt. sodium downtrending. Patient now on 3% saline Patient seen and examined at bedside. No acute events overnight. Good urine output. 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 Prognosis guarded. Breakthrough seizure Head and neck cancer with known pulmonary and brain metastasis with vasogenic edema resulting in Left-sided weakness - Decadron 6 mg IV every 6 hours - Keppra 750 mg IV twice daily, status post Keppra load in ED - Neurology following, brain MRI pending - Oncology following, has undergone 1 cycle of systemic therapy with 3 rounds of radiation. - Pulmonary following, continue Keppra and Decadron. No anticoagulation for now has IVC filter in place. Poor prognosis. Hyponatremia, concerns for SAIDH vs cerebral salt wasting vs voume depletion -Started on 3% saline -Nephrology note reviewed, discontinue 3% saline once sodium level is at 127 - resutls d/w Dr. Hartman and Dr. Danielle, target will be return to normal sodium with slow increase goal 8-10 in 24 hours, fluid restriction and NS at 75 mllhr, repeat head CT. No need for hypernatremia due to edema, repeat sodium at 1800. DM2 with hypo and hyperglycemia -Continue levmir to 8 unit BID, as hyperglycemia in am and hypoglycemia over night. -A1c 8.2 -Sliding scale insulin ACH S, monitor for hypoglycemia Anemia, likely multifactorial -Follow CBC -No indication for transfusion at this time Hypomagnesemia, resolved Thrombocytosis, reactive Acute hypercapnic respiratory failure, resolved Chronic: -Hypothyroidism DVT prophylaxis: SCDs, s/p IVC filter Anticipated discharge date: Pending Clinical Course Anticipated discharge place: Pending Clinical Course Objective - Vital Signs Vital signs: Vital Signs Temp 97.8 F 01/22/24 08:00 Pulse 71 01/22/24 11:00 Resp 18 01/22/24 11:00 BP 138/98 01/22/24 11:00 Pulse Ox 96 01/22/24 11:00 FiO2 40 01/20/24 08:16 Intake & Output 01/21/24 01/22/24 01/22/24 18:59 06:59 18:59 Intake Total 1035 225 333 Output Total 1550 1450 Balance -515 -1225 333 Weight 72.4 kg Intake: Intake, IV Titration 225 225 Amount Sodium Chloride 0.9% 1, 225 225 000 ml @ 75 mls/hr IV . [id number] [facility] Rx#:[id number] Oral 810 333 Output: Chest Tube Drainage 50 Pleural Catheter 50 Urine 1500 1450 Other: Voiding Method External Catheter External Catheter - Labs CBC & Chem 7: 01/22/24 05:20 01/22/24 05:20 Labs: Abnormal Lab Results - Last 24 Hours (Table) 01/21/24 01/21/24 01/21/24 Range/Units 11:22 13:17 16:50 RBC (4.30-5.90) m/uL Hgb (13.0-17.5) gm/dL Hct (39.0-53.0) % RDW (11.5-15.5) % Plt Count (150-450) k/uL Sodium 122 L (137-145) mmol/L Chloride 89 L (98-107) mmol/L Carbon Dioxide (22-30) mmol/L BUN 28 H (9-20) mg/dL Creatinine 0.64 L (0.66-1.25) mg/dL Glucose 359 H (74-99) mg/dL POC Glucose (mg/dL) 390 H 399 H (70-110) mg/dL Calcium (8.4-10.2) mg/dL ALT (4-49) U/L Alkaline Phosphatase (38-126) U/L Total Protein (6.3-8.2) g/dL Albumin (3.5-5.0) g/dL 01/21/24 01/21/24 01/21/24 Range/Units 18:08 20:39 20:59 RBC (4.30-5.90) m/uL Hgb (13.0-17.5) gm/dL Hct (39.0-53.0) % RDW (11.5-15.5) % Plt Count (150-450) k/uL Sodium 125 L 124 L (137-145) mmol/L Chloride 96 L 93 L (98-107) mmol/L Carbon Dioxide (22-30) mmol/L BUN 24 H 24 H (9-20) mg/dL Creatinine 0.58 L 0.54 L (0.66-1.25) mg/dL Glucose 298 H 287 H (74-99) mg/dL POC Glucose (mg/dL) 338 H (70-110) mg/dL Calcium 7.1 L 7.3 L (8.4-10.2) mg/dL ALT (4-49) U/L Alkaline Phosphatase (38-126) U/L Total Protein (6.3-8.2) g/dL Albumin (3.5-5.0) g/dL 01/22/24 01/22/24 01/22/24 Range/Units 02:04 05:20 05:20 RBC 3.84 L (4.30-5.90) m/uL Hgb 12.3 L (13.0-17.5) gm/dL Hct 36.8 L (39.0-53.0) % RDW 17.2 H (11.5-15.5) % Plt Count 500 H (150-450) k/uL Sodium 123 L (137-145) mmol/L Chloride 90 L (98-107) mmol/L Carbon Dioxide 32 H (22-30) mmol/L BUN 22 H (9-20) mg/dL Creatinine 0.65 L (0.66-1.25) mg/dL Glucose (74-99) mg/dL POC Glucose (mg/dL) 160 H (70-110) mg/dL Calcium (8.4-10.2) mg/dL ALT 52 H (4-49) U/L Alkaline Phosphatase 192 H (38-126) U/L Total Protein 6.1 L (6.3-8.2) g/dL Albumin 3.1 L (3.5-5.0) g/dL
[2024-01-22 13:03] LABS: Glucose,Whole Blood 143 mg/dL (70-110)
--- NOTE | 2024-01-22 13:30 | MR ---
EXAMINATION TYPE: MR brain wo/w con DATE OF EXAM: 01/22/2024 12:51 PM COMPARISON: 12/29/2023. CLINICAL INDICATION: Male, 63 years old with history of brain met, new onset seizure , L hemiparesis; , Hx of brain mets, left side weakness TECHNIQUE: Multi planar, multi sequence imaging was performed through the brain including: T1, T2, In version recovery, susceptibility weighted imaging and gradient echo imaging and Diffusion weighted im aging. The patient was then given intravenous contrast and multi planar, T1 fat-saturation images wer e obtained. IV Contrast: 6 mL Gadobutrol FINDINGS: There is vasogenic edema within the right frontal/occipital lobe with enhancing complex mas s measuring 28 x 28 x 29 mm with sagittal postcontrast enhancement as well as cystic component. The m ore solid components demonstrate restricted diffusion. Susceptibility weighted imaging does demonstra te some curvilinear and punctate foci of hemosiderin deposition within this mass. The right lateral v entricle is effaced due to vasogenic edema. And cystic component not fully seen on 12/29/2023 in total ity this is larger and not seen on 09/19/2023. Diffusion-weighted imaging shows no evidence of restricted diffusion to suggest acute/subacute infarc t. Intracranial arterial flow voids are maintained. Midline structures show no abnormality. Scattered foci of high T2 signal intensity are seen within the periventricular white matter. The bone marrow signal is within normal limits. Paranasal sinuses and mastoid air cells: No significant paranasal sinus disease. Visualized orbits: Orbital contents are intact. IMPRESSION: Right parietal/occipital enhancing complex mass with vasogenic edema effacing the right lateral ventr icle. This mass now demonstrates some cystic components around the periphery which in totality is lar ro compared to prior where there is no significant cystic component on 12/29/2023. Nonspecific white matter changes, likely related to small vessel ischemic disease. [facility], , 01/22/2024 1:28 PM
--- NOTE | 2024-01-22 13:45 | P.PN ---
Subjective Progress Note Date: 01/22/24 Patient lethargic at todays visit, but responds to verbal stimuli. LLE weakness and left sided facial droop persisting. MRI brain scheduled for later today Objective - Vital Signs Vital signs: Vital Signs Temp 98.5 F 01/21/24 20:00 Pulse 70 01/22/24 07:00 Resp 15 01/22/24 07:00 BP 151/105 01/22/24 07:00 Pulse Ox 96 01/22/24 10:00 FiO2 40 01/20/24 08:16 Intake & Output 01/21/24 01/22/24 01/22/24 18:59 06:59 18:59 Intake Total 1035 225 333 Output Total 1550 1450 Balance -515 -1225 333 Weight 72.4 kg Intake: Intake, IV Titration 225 225 Amount Sodium Chloride 0.9% 1, 225 225 000 ml @ 75 mls/hr IV . [id number] [facility] Rx#:[id number] Oral 810 333 Output: Chest Tube Drainage 50 Pleural Catheter 50 Urine 1500 1450 Other: Voiding Method External Catheter External Catheter - Constitutional General appearance: Present: no acute distress - EENT ENT: Present: hearing grossly normal - Respiratory Details: breathing is even and unlabored - Cardiovascular Details: skin warm and dry - Integumentary Integumentary: Absent: cyanotic, jaundiced - Neurologic Neurologic Comment(s): LLE weakness, left sided facial droop - Labs CBC & Chem 7: 01/22/24 05:20 01/22/24 11:34 Labs: Abnormal Lab Results - Last 24 Hours (Table) 01/21/24 01/21/24 01/21/24 Range/Units 11:22 13:17 16:50 RBC (4.30-5.90) m/uL Hgb (13.0-17.5) gm/dL Hct (39.0-53.0) % RDW (11.5-15.5) % Plt Count (150-450) k/uL Sodium 122 L (137-145) mmol/L Chloride 89 L (98-107) mmol/L Carbon Dioxide (22-30) mmol/L BUN 28 H (9-20) mg/dL Creatinine 0.64 L (0.66-1.25) mg/dL Glucose 359 H (74-99) mg/dL POC Glucose (mg/dL) 390 H 399 H (70-110) mg/dL Calcium (8.4-10.2) mg/dL ALT (4-49) U/L Alkaline Phosphatase (38-126) U/L Total Protein (6.3-8.2) g/dL Albumin (3.5-5.0) g/dL 01/21/24 01/21/24 01/21/24 Range/Units 18:08 20:39 20:59 RBC (4.30-5.90) m/uL Hgb (13.0-17.5) gm/dL Hct (39.0-53.0) % RDW (11.5-15.5) % Plt Count (150-450) k/uL Sodium 125 L 124 L (137-145) mmol/L Chloride 96 L 93 L (98-107) mmol/L Carbon Dioxide (22-30) mmol/L BUN 24 H 24 H (9-20) mg/dL Creatinine 0.58 L 0.54 L (0.66-1.25) mg/dL Glucose 298 H 287 H (74-99) mg/dL POC Glucose (mg/dL) 338 H (70-110) mg/dL Calcium 7.1 L 7.3 L (8.4-10.2) mg/dL ALT (4-49) U/L Alkaline Phosphatase (38-126) U/L Total Protein (6.3-8.2) g/dL Albumin (3.5-5.0) g/dL 01/22/24 01/22/24 01/22/24 Range/Units 02:04 05:20 05:20 RBC 3.84 L (4.30-5.90) m/uL Hgb 12.3 L (13.0-17.5) gm/dL Hct 36.8 L (39.0-53.0) % RDW 17.2 H (11.5-15.5) % Plt Count 500 H (150-450) k/uL Sodium 123 L (137-145) mmol/L Chloride 90 L (98-107) mmol/L Carbon Dioxide 32 H (22-30) mmol/L BUN 22 H (9-20) mg/dL Creatinine 0.65 L (0.66-1.25) mg/dL Glucose (74-99) mg/dL POC Glucose (mg/dL) 160 H (70-110) mg/dL Calcium (8.4-10.2) mg/dL ALT 52 H (4-49) U/L Alkaline Phosphatase 192 H (38-126) U/L Total Protein 6.1 L (6.3-8.2) g/dL Albumin 3.1 L (3.5-5.0) g/dL - Imaging and Cardiology CT Scan - head: report reviewed Assessment and Plan (1) Left hemiparesis Current Visit: Yes Status: Acute Code(s): G81.94 - HEMIPLEGIA, UNSPECIFIED AFFECTING LEFT NONDOMINANT SIDE SNOMED Code(s): 922186800 (2) Metastasis to brain Current Visit: Yes Status: Acute Priority: High Code(s): C79.31 - SECONDARY MALIGNANT NEOPLASM OF BRAIN SNOMED Code(s): 07179491 (3) Squamous cell lung cancer Current Visit: Yes Status: Acute Priority: High Code(s): C34.90 - MALIGNANT NEOPLASM OF UNSP PART OF UNSP BRONCHUS OR LUNG SNOMED Code(s): 597576333 (4) Hyponatremia Current Visit: Yes Status: Acute Priority: High Code(s): E87.1 - HYPO- OSMOLALITY AND HYPONATREMIA SNOMED Code(s): 89857729 Plan: Left hemiparesis: The patient presented with new onset of the same. Differentials included new CVA, versus rebound vasogenic edema postradiation with postseizure Anuj's paralysis also considered a possibility. -The CT report had mentioned the possibility of progression of the brain mass, although the measured size was in the same range. Case was extensively discussed with the ER physician, CCM, and radiation oncology. The degree of midline shift was mild. It was subsequently determined by neurology that the left leg abnormality was actually chronic and stable. Radiation oncology reviewed his scans remotely, and determined that the size of the mass was stable or slightly less. -The patient was therefore placed back on higher dose of IV steroids to treat any component of rebound edema. He was admitted to the ICU, and is being followed by CCM, and neurology. -Repeat CT brain on 01/20 showing similar extensive vasogenic edema in the right occipital and parietal lobes. Possible slight increase in leftward midline shift -Brain MRI scheduled for today to evaluate for new pathology Case discussed with rad onc, Dr. Hartmann today Hyponatremia: -Sodium 123 today, possibly r/t SIADH from malignancy -Nephrology following. 3% sodium drip started Squamous cell lung cancer: The patient has had 1 cycle of systemic therapy. Treatment has been on hold due to various factors, as described in the HPI. This will be resumed once his acute problems are appropriately controlled. Doctor attests: I performed a history and physical examination of this patient, developed impression and plan of care. Discussed with dictator. I agree with dictators note, documented as a scribe.
[2024-01-22] MEDS: FUROSEMIDE 10 MG/ML 2 ML VIAL IV ONE (13:59)
--- NOTE | 2024-01-22 15:00 | P.PN ---
Subjective Progress Note Date: 01/22/24 I am seeing the patient for the first time during this admission. Please refer to Dr. Danielle notes for further details. 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 The patient was restarted on Decadron. Objective - Vital Signs Vital signs: Vital Signs Temp 97.8 F 01/22/24 08:00 Pulse 78 01/22/24 14:00 Resp 18 01/22/24 14:00 BP 132/91 01/22/24 14:00 Pulse Ox 99 01/22/24 14:00 FiO2 40 01/20/24 08:16 Intake & Output 01/21/24 01/22/24 01/22/24 18:59 06:59 18:59 Intake Total 1035 225 683 Output Total 1550 1450 1400 Balance -515 -1225 -717 Weight 72.4 kg Intake: Intake, IV Titration 225 225 350 Amount Magnesium Sulfate-D5w Pmx 200 1 gm In Dextrose/Water 1 100ml.bag @ 100 mls/hr IVPB Q1H [facility] Rx#: [id number] Sodium Chloride 0.9% 1, 225 225 000 ml @ 75 mls/hr IV . [id number] [facility] Rx#:[id number] Sodium Chloride 3%( 150 Hypertonic) 500 ml @ 25 mls/hr IV .Q20H [facility] Rx#: [id number] Oral 810 333 Output: Chest Tube Drainage 50 Pleural Catheter 50 Urine 1500 1450 1400 Stool 0 Other: Voiding Method External Catheter External Catheter External Catheter - Exam General: Lying in bed and is not in acute distress Neuro: Somewhat limited. Patient is mildly drowsy but is awake able to voice. He is oriented to self place and time. Is following simple commands. No aphasia. Patient is collecting the left side The pupils are round the right is about 3 mm and the left is about 6 mm the right is reactive to light briskly while the left is sluggish reactive to light. Motor the strength is hard to assess the left side since his neck locked in it but he was able to move the left hand fingers 2/5 and that after multiple tries. He is moving the right side above gravity seems normal. Over the left lower extremity. - Labs CBC & Chem 7: 01/22/24 05:20 01/22/24 13:33 Labs: Abnormal Lab Results - Last 24 Hours (Table) 01/21/24 01/21/24 01/21/24 Range/Units 16:50 18:08 20:39 RBC (4.30-5.90) m/uL Hgb (13.0-17.5) gm/dL Hct (39.0-53.0) % RDW (11.5-15.5) % Plt Count (150-450) k/uL Sodium 125 L (137-145) mmol/L Chloride 96 L (98-107) mmol/L Carbon Dioxide (22-30) mmol/L BUN 24 H (9-20) mg/dL Creatinine 0.58 L (0.66-1.25) mg/dL Glucose 298 H (74-99) mg/dL POC Glucose (mg/dL) 399 H 338 H (70-110) mg/dL Calcium 7.1 L (8.4-10.2) mg/dL ALT (4-49) U/L Alkaline Phosphatase (38-126) U/L Total Protein (6.3-8.2) g/dL Albumin (3.5-5.0) g/dL 01/21/24 01/22/24 01/22/24 Range/Units 20:59 02:04 05:20 RBC 3.84 L (4.30-5.90) m/uL Hgb 12.3 L (13.0-17.5) gm/dL Hct 36.8 L (39.0-53.0) % RDW 17.2 H (11.5-15.5) % Plt Count 500 H (150-450) k/uL Sodium 124 L (137-145) mmol/L Chloride 93 L (98-107) mmol/L Carbon Dioxide (22-30) mmol/L BUN 24 H (9-20) mg/dL Creatinine 0.54 L (0.66-1.25) mg/dL Glucose 287 H (74-99) mg/dL POC Glucose (mg/dL) 160 H (70-110) mg/dL Calcium 7.3 L (8.4-10.2) mg/dL ALT (4-49) U/L Alkaline Phosphatase (38-126) U/L Total Protein (6.3-8.2) g/dL Albumin (3.5-5.0) g/dL 01/22/24 01/22/24 01/22/24 Range/Units 05:20 11:34 13:01 RBC (4.30-5.90) m/uL Hgb (13.0-17.5) gm/dL Hct (39.0-53.0) % RDW (11.5-15.5) % Plt Count (150-450) k/uL Sodium 123 L 121 L (137-145) mmol/L Chloride 90 L (98-107) mmol/L Carbon Dioxide 32 H (22-30) mmol/L BUN 22 H (9-20) mg/dL Creatinine 0.65 L (0.66-1.25) mg/dL Glucose (74-99) mg/dL POC Glucose (mg/dL) 143 H (70-110) mg/dL Calcium (8.4-10.2) mg/dL ALT 52 H (4-49) U/L Alkaline Phosphatase 192 H (38-126) U/L Total Protein 6.1 L (6.3-8.2) g/dL Albumin 3.1 L (3.5-5.0) g/dL 01/22/24 Range/Units 13:33 RBC (4.30-5.90) m/uL Hgb (13.0-17.5) gm/dL Hct (39.0-53.0) % RDW (11.5-15.5) % Plt Count (150-450) k/uL Sodium 122 L (137-145) mmol/L Chloride (98-107) mmol/L Carbon Dioxide (22-30) mmol/L BUN (9-20) mg/dL Creatinine (0.66-1.25) mg/dL Glucose (74-99) mg/dL POC Glucose (mg/dL) (70-110) mg/dL Calcium (8.4-10.2) mg/dL ALT (4-49) U/L Alkaline Phosphatase (38-126) U/L Total Protein (6.3-8.2) g/dL Albumin (3.5-5.0) g/dL Assessment and Plan Assessment: Mr. 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 He had been recently decreased out his dexamethasone and has had increasing edema. He has now flaccid on his left arm and exhibits increased weakness on his left side with a left homonymous hemianopia. This is likely due to the increased edema surrounding his mass. Brain metastasis over the right occipital with significant vasogenic edema. Patient has left homonymous hemianopsia, chronic dilated left pupils, neglecting the left side. 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 Plan: Patient is on dexamethasone 6 mg every 6 hours. If patient symptoms do not improve recommend to change it to 6 mg every 4 hours. Patient had MRI of the brain and pending final report. I felt there is worsening of vasogenic edema. Patient is on 3% hypertonic saline a per nephrology recommendation Is on Keppra 750 mg twice daily and it seems it was started as a prophylaxis. Oncology is on board. Defer the rest of the medical management to primary and other specialist next The plan is discussed with patient, primary team. Time with Patient: Less than 30
--- NOTE | 2024-01-22 15:01 | P.PN ---
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 Subsequently, he was lost to follow-up and he presented back to us with a large left upper lobe mass and I performed bronchoscopy on this patient back in August 2023 and the findings were consistent with squamous cell carcinoma. The PET scan from September 2023 showed left upper lobe mass, PET avid in addition to metastatic activity involving the mediastinum and the right supraclavicular and bilateral lymph node lymphadenopathy in addition to left inferior pleural space FDG uptake and metastatic mediastinal lymphadenopathy. The patient was started on systemic treatment including a combination of carboplatinum, Alimta and Keytruda. While taking his second cycle of treatment, on 12/15/2023, the patient was noted to being have increased shortness of breath. He was sent to the emergency department and a CT angiogram of the chest was done and the patient was found to have small segmental branch pulmonary embolism involving the right lower lobe. Minimal overall clot burden. There was new moderate to large left-sided effusion along with atelectatic collapse of the left lower lobe. New moderate right-sided pleural effusion with adjacent atelectasis. There was also pleural nodularity in the posterior left upper lobe, additional disease progression with new pericardial lymphadenopathy measuring up to 2.1 cm in size and there was also a large left upper lobe mass encasing the left hilum that was measuring 11.9 cm in size with metastatic mediastinal and hilar l ymphadenopathy and the patient had shown some partial response as the patient was receiving systemic chemotherapy. The echocardiogram that was done at that time on 12/15/2023 showed preserved LV function, normal RV size and function. Venous Doppler of the lower extremity that was done on 12/16/2023 showed no evidence of any DVT. Noted, the patient had a Pleurx catheter insertion on 12/19/2023 into the left pleural space and the fluid cytology was essentially negative for carcinoma or malignancy. The patient was discharged home and anticoagulation with Eliquis. Readmitted to the hospital on 12/28/2023 with altered mentation. The patient had unresponsiveness and new onset seizures. MRI of the brain was done and the patient was found to have right parietal/occipital mass with vasogenic edema. The patient was started on Keppra and Decadron. Anticoagulation was stopped and the patient was given an IVC filter on 01/02/2024 and the patient was discharged home on 01/03/2024 and he was advised to continue Decadron 4 mg p.o. 3 times daily and Keppra 750 mg p.o. twice daily. The patient was also seen by radiation oncology. Received SBRT to his brain, a total of 3 sessions earlier this week. The patient came into the emergency department today with strokelike symptoms and left-sided weakness. The patient also had altered mentation. His last known normal was unclear but this was sometime yesterday night. The patient was experiencing left-sided weakness, facial droop and dysarthria. He also had developed a dilated left pupil which was noted few weeks back. CT scan of the brain was done in Emergency Department and the patient was found to have a 2 point centimeter lesion that had been enlarging compared to the previous CAT scan of the brain that was done on 12/28/2023. The patient had hyperdense right occipital lobe 2.1 cm lesion with increasing surrounding vasogenic edema and a 3 mm left shift from midline. The CTA of the brain was also done and it showed no evidence of dissection of the cervical or internal carotid arteries or vertebral arteries. No evidence of any high-grade stenosis intracranially. There was a enhancing right occipital lobe mass with surrounding vasogenic edema. In the emergency, the patient had also 2 episodes of seizures. The case was discussed with outside facilities regarding transfer and was found that there was no indication for this medical transfer. The patient was started on Decadron 6 mg IV every 6 hours and the patient was kept on Keppra 750 mg IV every 12 hours. He was admitted to the intensive care unit for further management. He seems to be quite obtunded at this point in time. Blood gas was also done in the ICU and the patient was found to have a pH of 7.16 with a pCO2 of 85 and a pO2 of 70 and this was done by the patient being in 60s of oxygen by nasal cannula. Accordingly, the patient was placed on a BiPAP. Chest x-ray has not been done yet. The white cell count is 11.5 with a hemoglobin 12.7 and platelet count of 488. BUN 25 L and 0.6 and a sodium levels at 128. Blood sugar is at 454. Norm al UA. Urine drug screen is positive for marijuana and opiates. 01/20/2024, the patient is much more awake compared to yesterday. The patient is unable to move his left upper and left lower extremity. He is able to wiggle his toes and his fingers on the left. Mental status is improved. No further seizure activity has been noted. The patient remains on a combination of Keppra and Decadron. Keppra is 500 mg IV every 12 hours and the patient is also on Decadron at 6 mg IV every 6 hours. The patient was further taken off the BiPAP. He is currently on 2 L of oxygen by nasal cannula. Pulse ox is 98%. Morning blood work shows a WBC count of 8.9, hemoglobin 10.9 and platelet count of 378. BUN is 19 with a creatinine of 0.49 and a sodium levels at 133. He does have a Pleurx catheter in his left chest and a total of 100 cc of pleural fluid was evacuated this morning. The follow-up chest x-ray shows some limited improvement in aeration of the left lung base. . On today's evaluation of 01/21/2024, the patient is free of any seizures. He has not had any seizures over the past 24 hours. Remains on Keppra. Remains on Decadron. He is a bit confused and delirious. Trying to get out of bed. He has a sitter at the bedside. Left side remains weak although there is some li mited improving motor function left upper extremity on today's evaluation. The patient has no signs of any respiratory distress. The white cell count is at 9.1 with a hemoglobin 11.7 and a platelet count of 447. BUN is 23 with a creatinine of 0.6. Sodium level is at 126. The patient is drinking liquids. No other significant events overnight. He remains on Levemir insulin 8 units twice daily and sliding scale insulin coverage. Patient evaluated today on 01/22/2024, patient seems to be very comfortable, not in any distress, he is on few liters nasal cannula, and intermittently on BiPAP 01/24/40%, he was just started on 3% saline for his hyponatremia with a sodium of 123, patient also is on Decadron at 6 mg IV push every 6 hours for his brain metastasis. His last seizure was 01/18, patient has metastatic head and neck cancer with metastasis to the lungs and to the brain. He also has a left Pleurx catheter in place for recurrent left-sided pleural effusion CT of the brain showed right occipital mass which seems to be quite large. Patient is being followed by nephrology as well as by hematology/oncology. Receiving chemotherapy as well as immunotherapy. Pulmonary turk he does not seem to be in distress, seems to be fairly comfortable, he does have left-sided paralysis WBC count is 6.6 hemoglobin 12.3 sodium is 123 potassium 4.6. Renal profile is normal Objective - Vital Signs Vital signs: Vital Signs Temp 97.8 F 01/22/24 08:00 Pulse 78 01/22/24 14:00 Resp 18 01/22/24 14:00 BP 132/91 01/22/24 14:00 Pulse Ox 99 01/22/24 14:00 FiO2 40 01/20/24 08:16 Intake & Output 01/21/24 01/22/24 01/22/24 18:59 06:59 18:59 Intake Total 1035 225 683 Output Total 1550 1450 1400 Balance -515 -1225 -717 Weight 72.4 kg Intake: Intake, IV Titration 225 225 350 Amount Magnesium Sulfate-D5w Pmx 200 1 gm In Dextrose/Water 1 100ml.bag @ 100 mls/hr IVPB Q1H [facility] Rx#: [id number] Sodium Chloride 0.9% 1, 225 225 000 ml @ 75 mls/hr IV . [id number] [facility] Rx#:[id number] Sodium Chloride 3%( 150 Hypertonic) 500 ml @ 25 mls/hr IV .Q20H [facility] Rx#: [id number] Oral 810 333 Output: Chest Tube Drainage 50 Pleural Catheter 50 Urine 1500 1450 1400 Stool 0 Other: Voiding Method External Catheter External Catheter External Catheter - Exam GENERAL EXAM: Revealed a 63-year-old white male in no distress, slightly confused and delirious HEAD: Normocephalic. EYES: Dilated left pupil NOSE: Clear with pink turbinates. THROAT: No erythema or exudates. NECK: No masses, no JVD. CHEST: No chest wall deformity. LUNGS: Equal air entry with bibasilar crackles, left greater than right, diminished left lung base. CVS: S1 and S2 normal with no audible murmur, regular rhythm. ABDOMEN: No hepatosplenomegaly, normal bowel sounds, no guarding or rigidity. SKIN: No rashes CENTRAL NERVOUS SYSTEM: Left-sided weakness, dilated left pupil, free of any seizures. The patient opened his eyes upon stimulation. Awake and alert and communicating. Left-sided paralysis is unchanged. The patient is confused and delirious. EXTREMITIES: There is no peripheral edema. No clubbing, no cyanosis. Peripheral pulses are intact. - Labs CBC & Chem 7: 01/22/24 05:20 01/22/24 13:33 Labs: Abnormal Lab Results - Last 24 Hours (Table) 01/21/24 01/21/24 01/21/24 Range/Units 16:50 18:08 20:39 RBC (4.30-5.90) m/uL Hgb (13.0-17.5) gm/dL Hct (39.0-53.0) % RDW (11.5-15.5) % Plt Count (150-450) k/uL Sodium 125 L (137-145) mmol/L Chloride 96 L (98-107) mmol/L Carbon Dioxide (22-30) mmol/L BUN 24 H (9-20) mg/dL Creatinine 0.58 L (0.66-1.25) mg/dL Glucose 298 H (74-99) mg/dL POC Glucose (mg/dL) 399 H 338 H (70-110) mg/dL Calcium 7.1 L (8.4-10.2) mg/dL ALT (4-49) U/L Alkaline Phosphatase (38-126) U/L Total Protein (6.3-8.2) g/dL Albumin (3.5-5.0) g/dL 01/21/24 01/22/24 01/22/24 Range/Units 20:59 02:04 05:20 RBC 3.84 L (4.30-5.90) m/uL Hgb 12.3 L (13.0-17.5) gm/dL Hct 36.8 L (39.0-53.0) % RDW 17.2 H (11.5-15.5) % Plt Count 500 H (150-450) k/uL Sodium 124 L (137-145) mmol/L Chloride 93 L (98-107) mmol/L Carbon Dioxide (22-30) mmol/L BUN 24 H (9-20) mg/dL Creatinine 0.54 L (0.66-1.25) mg/dL Glucose 287 H (74-99) mg/dL POC Glucose (mg/dL) 160 H (70-110) mg/dL Calcium 7.3 L (8.4-10.2) mg/dL ALT (4-49) U/L Alkaline Phosphatase (38-126) U/L Total Protein (6.3-8.2) g/dL Albumin (3.5-5.0) g/dL 01/22/24 01/22/24 01/22/24 Range/Units 05:20 11:34 13:01 RBC (4.30-5.90) m/uL Hgb (13.0-17.5) gm/dL Hct (39.0-53.0) % RDW (11.5-15.5) % Plt Count (150-450) k/uL Sodium 123 L 121 L (137-145) mmol/L Chloride 90 L (98-107) mmol/L Carbon Dioxide 32 H (22-30) mmol/L BUN 22 H (9-20) mg/dL Creatinine 0.65 L (0.66-1.25) mg/dL Glucose (74-99) mg/dL POC Glucose (mg/dL) 143 H (70-110) mg/dL Calcium (8.4-10.2) mg/dL ALT 52 H (4-49) U/L Alkaline Phosphatase 192 H (38-126) U/L Total Protein 6.1 L (6.3-8.2) g/dL Albumin 3.1 L (3.5-5.0) g/dL 01/22/24 Range/Units 13:33 RBC (4.30-5.90) m/uL Hgb (13.0-17.5) gm/dL Hct (39.0-53.0) % RDW (11.5-15.5) % Plt Count (150-450) k/uL Sodium 122 L (137-145) mmol/L Chloride (98-107) mmol/L Carbon Dioxide (22-30) mmol/L BUN (9-20) mg/dL Creatinine (0.66-1.25) mg/dL Glucose (74-99) mg/dL POC Glucose (mg/dL) (70-110) mg/dL Calcium (8.4-10.2) mg/dL ALT (4-49) U/L Alkaline Phosphatase (38-126) U/L Total Protein (6.3-8.2) g/dL Albumin (3.5-5.0) g/dL Assessment and Plan Assessment: Pression: Seizures, likely a manifestation of L[employer] metastases, maintained on Keppra on outpatient basis. The patient also has an enlarging right occipital brain lesion measuring 2.1 cm in size with surrounding edema and 3 mm leftward midline shift. The patient is currently on a combination of Decadron and Keppra. Neurology on the case. Continues to have paralysis of the left upper and left lower extremity. Delirium/confusion, multifactorial. Acute hypoxic/hypercapnic respiratory failure, currently off the BiPAP and patient is on room air oxygen Metastatic L[employer] lesion, right occipital, currently on Decadron, status post SBRT Left-sided weakness, rule out Anuj's paralysis following seizure. Rule out motor deficits related to metastatic brain lesion and vasogenic edema, clinically unchanged Metastatic squamous cell carcinoma of the lung versus metastatic from head and neck/tongue cancer from 2021, initiated on a combination of carboplatin Alimta and Keytruda on 12/06/2023 and the patient received only 1 cycle. History of tongue cancer Left upper lobe mass measuring 12 cm in size with extensive mediastinal lymphadenopathy consistent with metastatic disease Pulmonary embolism, small segmental, status post IVC filter placement History of Pleurx catheter insertion for a left-sided pleural effusion, pleural fluid cytology has been negative for malignancy, left lung is quite opacified due to a left upper lobe tumor, atelectasis and a left-sided pleural effusion. Diabetes mellitus with steroid-induced hyperglycemia Hypothyroidism Recommendation: Continue seizure medications Continue to intermittently drain the Pleurx catheter/left-sided pleural effusion Continue Decadron Continue Seroquel Continue insulin Close monitoring for recurrent seizures patient is now on Keppra Continue IVC filter for his previous history of pulmonary embolism patient cannot have anticoagulation therapy because of his LIV[employer] metastasis Continue IV Protonix Continue to monitor sodium patient is now on 3% saline as per nephrology Patient is being seen by radiation oncology and medical oncology. Overall prognosis extremely poor CODE STATUS needs to be discussed with family strongly recommend DNI DNR CODE STATUS Will continue to follow Time with Patient: Less than 30
[2024-01-22 17:12] LABS: Glucose,Whole Blood 207 mg/dL (70-110)
[2024-01-22 20:31] LABS: Glucose,Whole Blood 95 mg/dL (70-110)
[2024-01-23 01:11] LABS: Glucose,Whole Blood 71 mg/dL (70-110)
[2024-01-23 02:47] LABS: Anisocytosis Slight; Basophils % (A) 0 %; Eosinophils % (A) 0 %; HCT 43.3 % (39.0-53.0); HGB 13.9 gm/dL (13.0-17.5); Lymphocytes # (A) 0.3 k/uL (1.0-4.8); Lymphocytes % (A) 5 %; MCH 31.1 pg (25.0-35.0); MCHC 32.2 g/dL (31.0-37.0); MCV 96.5 fL (80.0-100.0); Macrocytosis Slight; Monocytes # (A) 0.4 k/uL (0-1.0); Monocytes % (A) 6 %; Neutrophils # (A) 5.8 k/uL (1.3-7.7); Neutrophils % (A) 88 %; Platelet Count 534 k/uL (150-450); RBC 4.48 m/uL (4.30-5.90); RDW 16.9 % (11.5-15.5); WBC 6.5 k/uL (3.8-10.6)
[2024-01-23 03:01] LABS: African American GFR (CKD) >90 (>60 ml/min/1.73 sqM); Anion Gap 2 mmol/L; Blood Urea Nitrogen 24 mg/dL (9-20); Calcium 8.6 mg/dL (8.4-10.2); Carbon Dioxide 27 mmol/L (22-30); Chloride 94 mmol/L (98-107); Glucose 97 mg/dL (74-99); Magnesium 1.6 mg/dL (1.6-2.3); Non-African American GFR(CKD) >90 (>60 ml/min/1.73 sqM); Potassium 4.3 mmol/L (3.5-5.1); Sodium 123 mmol/L (137-145)
[2024-01-23 03:02] LABS: Glucose,Whole Blood 108 mg/dL (70-110)
[2024-01-23 04:18] LABS: T4, Free (Free Thyroxine) 0.82 ng/dL (0.78-2.19)
[2024-01-23 05:33] LABS: Glucose,Whole Blood 96 mg/dL (70-110)
--- NOTE | 2024-01-23 08:05 | XR ---
EXAMINATION TYPE: XR chest 1V portable DATE OF EXAM: 01/23/2024 5:26 AM COMPARISON: 01/22/2024 CLINICAL INDICATION: Male, 63 years old with history of effusion, , Findings: Redemonstrated volume loss left hemithorax with near complete whiteout and pleural catheter at the le ft base. Left heart margin remains obscured by adjacent pleural parenchymal opacity. Continued improv ing interstitial density on the right. IMPRESSION: Volume loss and near-complete whiteout persists left hemithorax with pleural catheter at the left bas e. [facility], , 01/23/2024 8:03 AM
[2024-01-23] MEDS: SODIUM CHLORIDE TAB 1 GM TAB PO SCH (09:19)
--- NOTE | 2024-01-23 09:54 | P.PN ---
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 Known left-sided weakness with left pupil dilatation. CT of the brain demonstrated 2.1 cm lesion enlarging from prior with worsening vasogenic edema and left midline shift. Had 1 seizure with EMS. Initial vital signs were remarkable for tachycardia with heart rate of 102 and blood pressure of 184/117. Initial laboratory analysis was remarkable for white blood cell count 11.5, hemoglobin 12.7, platelets 488, sodium 128. At that time ABG showed a pH of 7.16 with a pCO2 of 85. Additionally patient underwent CTA of the head and neck which showed no significant stenosis. Chest x-ray showed increasing interstitial density concerning for pulmonary vascular congestion with ongoing volume loss and extensive pleural opacity throughout the left hemithorax with left basilar Pleurx catheter in place. Patient was admitted to the ICU with breakthrough seizure. Patient had 1 seizure with EMS and 2 seizures in the emergency department the second requiring the use of Ativan to abort the seizure. Neurology and critical care were consulted. Consideration was made for transfer but it was found that there is no indication for medical transfer. Patient was started on Decadron 6 mg IV every 6 hours and Keppra 750 mg IV every 12 hours. Was started on BiPAP due to the ABG results which was weaned off by 01/19, was briefly on an insulin gtt. sodium downtrending. Patient now on 3% saline Patient seen and examined at bedside. No acute events overnight. Good urine output. Vital signs reviewed General: Nontoxic, no distress, appears at stated age Cardiovascular: S1S2 reg, no murmur Lungs: Coarse breath sounds bilateral, no rhonchi, no rales, no accessory muscle use Abdominal: Soft, nontender to palpation, no guarding Ext: No gross muscle atrophy, no edema b/l lower extremities, no contractures Neuro: CN II-XI grossly intact, left upper extremity is able to lift against gravity, weakened baling machine tender strength compared to right, unable to move left lower extremity against gravity, but is moving more than yesterday to the side, right upper and lower extremity 5 out of 5 muscle strength Psych: Alert, oriented to self and situation, appropriate affect Chest x-ray independently interpreted, shows persistent left hemithorax WBC 6.5, hemoglobin 13.9, platelet 534, sodium 124, potassium 4.5, creatinine 0.61, TSH 10.30, free T4 0.82, magnesium 1.6 Assessment/Plan: Patient is critically ill, in medical ICU. Prognosis guarded. Breakthrough seizure Head and neck cancer with known pulmonary and brain metastasis with vasogenic edema resulting in Left-sided weakness - Decadron 6 mg IV every 6 hours - Keppra 750 mg IV twice daily, status post Keppra load in ED - Neurology following, brain MRI showed right parietal occipital enhancing complex mass with vasogenic edema effacing the right lateral ventricle, slightly worsened around the periphery compared to prior - Oncology following, has undergone 1 cycle of systemic therapy with 3 rounds of radiation. -ICU following, continue Keppra and Decadron. No anticoagulation for now has IVC filter in place. Poor prognosis. Hyponatremia, concerns for SAIDH vs cerebral salt wasting vs voume depletion -Status post 3% saline -Nephrology following, currently on sodium chloride tabs 1 g twice daily euthyroid sick syndrome -Repeat TSH and free T4 in 4 to 6 weeks. DM2 with hypo and hyperglycemia -Continue levmir to 8 unit BID -A1c 8.2 -Sliding scale insulin ACH S, monitor for hypoglycemia Anemia, likely multifactorial -Follow CBC -No indication for transfusion at this time Hypomagnesemia, resolved Thrombocytosis, reactive Acute hypercapnic respiratory failure, resolved Chronic: -Hypothyroidism DVT prophylaxis: SCDs, s/p IVC filter Anticipated discharge date: Pending Clinical Course Anticipated discharge place: Pending Clinical Course Objective - Vital Signs Vital signs: Vital Signs Temp 98.5 F 01/23/24 04:00 Pulse 67 01/23/24 07:00 Resp 11 L 01/23/24 07:00 BP 120/86 01/23/24 07:00 Pulse Ox 98 01/23/24 07:00 FiO2 40 01/20/24 08:16 Intake & Output 01/22/24 01/23/24 01/23/24 18:59 06:59 18:59 Intake Total 783 655 0 Output Total 3100 950 Balance -2317 -295 0 Weight 71.3 kg Intake: Intake, IV Titration 450 305 0 Amount Magnesium Sulfate-D5w Pmx 200 1 gm In Dextrose/Water 1 100ml.bag @ 100 mls/hr IVPB Q1H [facility] Rx#: [id number] Sodium Chloride 3%( 250 305 0 Hypertonic) 500 ml @ 30 mls/hr IV .[id number] ONE Rx #:[id number] Oral 333 350 Output: Drainage 50 Left Chest 50 Urine 3100 900 Stool 0 0 Other: Voiding Method External Catheter External Catheter - Labs CBC & Chem 7: 01/23/24 02:25 01/23/24 04:13 Labs: Abnormal Lab Results - Last 24 Hours (Table) 01/22/24 01/22/24 01/22/24 Range/Units 11:34 13:01 13:33 RDW (11.5-15.5) % Plt Count (150-450) k/uL Lymphocytes # (1.0-4.8) k/uL Sodium 121 L 122 L (137-145) mmol/L Chloride (98-107) mmol/L BUN (9-20) mg/dL Creatinine (0.66-1.25) mg/dL POC Glucose (mg/dL) 143 H (70-110) mg/dL TSH (0.465-4.680) mIU/L 01/22/24 01/22/24 01/22/24 Range/Units 15:32 17:10 17:30 RDW (11.5-15.5) % Plt Count (150-450) k/uL Lymphocytes # (1.0-4.8) k/uL Sodium 122 L 124 L (137-145) mmol/L Chloride (98-107) mmol/L BUN (9-20) mg/dL Creatinine (0.66-1.25) mg/dL POC Glucose (mg/dL) 207 H (70-110) mg/dL TSH (0.465-4.680) mIU/L 01/22/24 01/22/24 01/22/24 Range/Units 19:24 21:15 23:18 RDW (11.5-15.5) % Plt Count (150-450) k/uL Lymphocytes # (1.0-4.8) k/uL Sodium 127 L 123 L 122 L (137-145) mmol/L Chloride (98-107) mmol/L BUN (9-20) mg/dL Creatinine (0.66-1.25) mg/dL POC Glucose (mg/dL) (70-110) mg/dL TSH (0.465-4.680) mIU/L 01/23/24 01/23/24 01/23/24 Range/Units 02:25 02:25 04:13 RDW 16.9 H (11.5-15.5) % Plt Count 534 H (150-450) k/uL Lymphocytes # 0.3 L (1.0-4.8) k/uL Sodium 123 L 124 L (137-145) mmol/L Chloride 94 L (98-107) mmol/L BUN 24 H (9-20) mg/dL Creatinine 0.61 L (0.66-1.25) mg/dL POC Glucose (mg/dL) (70-110) mg/dL TSH 10.300 H (0.465-4.680) mIU/L
--- NOTE | 2024-01-23 09:58 | P.PN ---
Subjective Patient is seen in follow-up for hyponatremia. Received 3% saline overnight. Sodium level 124 this morning. Resting in bed. Somewhat confused. Vital signs are stable. General: No acute distress. HEENT: Head exam is unremarkable. LUNGS: No audible rhonchi or wheezes. HEART: Rate and Rhythm are regular. ABDOMEN: Nontender. EXTREMITITES: 1+ edema. Objective - Vital Signs Vital signs: Vital Signs Temp 98.5 F 01/23/24 04:00 Pulse 71 01/23/24 09:00 Resp 18 01/23/24 09:00 BP 114/84 01/23/24 09:00 Pulse Ox 98 01/23/24 09:00 FiO2 40 01/20/24 08:16 Intake & Output 01/22/24 01/23/24 01/23/24 18:59 06:59 18:59 Intake Total 783 655 250 Output Total 3100 950 100 Balance -2317 -295 150 Weight 71.3 kg Intake: Intake, IV Titration 450 305 0 Amount Magnesium Sulfate-D5w Pmx 200 1 gm In Dextrose/Water 1 100ml.bag @ 100 mls/hr IVPB Q1H [facility] Rx#: [id number] Sodium Chloride 3%( 250 305 0 Hypertonic) 500 ml @ 30 mls/hr IV .[id number] ONE Rx #:[id number] Oral 333 350 250 Output: Drainage 50 Left Chest 50 Urine 3100 900 100 Stool 0 0 0 Other: Voiding Method External Catheter External Catheter External Catheter # Bowel Movements 0 - Labs CBC & Chem 7: 01/23/24 02:25 01/23/24 04:13 Labs: Abnormal Lab Results - Last 24 Hours (Table) 01/22/24 01/22/24 01/22/24 Range/Units 11:34 13:01 13:33 RDW (11.5-15.5) % Plt Count (150-450) k/uL Lymphocytes # (1.0-4.8) k/uL Sodium 121 L 122 L (137-145) mmol/L Chloride (98-107) mmol/L BUN (9-20) mg/dL Creatinine (0.66-1.25) mg/dL POC Glucose (mg/dL) 143 H (70-110) mg/dL TSH (0.465-4.680) mIU/L 12/04/1501/22/24 01/22/24 Range/Units 15:32 17:10 17:30 RDW (11.5-15.5) % Plt Count (150-450) k/uL Lymphocytes # (1.0-4.8) k/uL Sodium 122 L 124 L (137-145) mmol/L Chloride (98-107) mmol/L BUN (9-20) mg/dL Creatinine (0.66-1.25) mg/dL POC Glucose (mg/dL) 207 H (70-110) mg/dL TSH (0.465-4.680) mIU/L 01/22/24 01/22/24 01/22/24 Range/Units 19:24 21:15 23:18 RDW (11.5-15.5) % Plt Count (150-450) k/uL Lymphocytes # (1.0-4.8) k/uL Sodium 127 L 123 L 122 L (137-145) mmol/L Chloride (98-107) mmol/L BUN (9-20) mg/dL Creatinine (0.66-1.25) mg/dL POC Glucose (mg/dL) (70-110) mg/dL TSH (0.465-4.680) mIU/L 01/23/24 01/23/24 01/23/24 Range/Units 02:25 02:25 04:13 RDW 16.9 H (11.5-15.5) % Plt Count 534 H (150-450) k/uL Lymphocytes # 0.3 L (1.0-4.8) k/uL Sodium 123 L 124 L (137-145) mmol/L Chloride 94 L (98-107) mmol/L BUN 24 H (9-20) mg/dL Creatinine 0.61 L (0.66-1.25) mg/dL POC Glucose (mg/dL) (70-110) mg/dL TSH 10.300 H (0.465-4.680) mIU/L Assessment and Plan Plan: Assessment: 1. Hyponatremia. 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 Cerebral salt wasting less likely as patient does not appear hypovolemic. Sodium level 124 this morning. It has been in the range of 124-128 since November 2023. Patient received IV fluids and sodium did improve from 122-125 but then dropped to 124. Urine sodium 147 and urine osmolality 529. These were drawn after the patient had received IV fluids. TSH elevated at 10.3 but free T4 is normal. 2. 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 Maintained on chemotherapy and radiation. Vasogenic edema in the right occipital and parietal lobes noted on brain CT reflective of metastatic disease. Neurology and oncology following. 3. Diabetes mellitus. 4. Hypomagnesemia from poor intake. Being replaced. Plan: Maintain fluid restriction. Add sodium chloride tab 1 g twice daily. Lasix 20 mg IV once at noon. Repeat sodium level this afternoon. If sodium level not better, will consider Samsca. Follow-up cortisol level.
[2024-01-23] MEDS: MAGNESIUM SULFATE-D5W PMX 1 GM in DEXTROSE/WATER 1 100ML.BAG IVPB SCH (10:00)
--- NOTE | 2024-01-23 10:50 | P.CONS ---
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 He underwent concurrent chemoradiation finishing on 05/11/2021. He was subsequently discovered to have a large left upper lung lesion with mediastinal adenopathy. Biopsy performed on 08/31/2023 was consistent with squamous cell carcinoma, P16+. He was started on chemo/immunotherapy and completed 1 cycle. He was hospitalized due to altered mental status and found to have a right occipital lobe brain metastasis. He underwent SBRT finishing 27 Gy / 3 fractions on 01/16/24. He was subsequently hospitalized following seizure and found to have left hemiparesis. The patient has had some improvement since I last evaluated him on Monday. He is much more awake and alert. He currently denies headaches or nausea. He still has significant left sided weakness however. He reports difficulty moving the left upper and lower extremities. He has been continued on 6 mg of Decadron every 6 hours as well as Keppra. No further seizure episodes. MRI of the brain from 01/21 shows fairly extensive vasogenic edema within the right occipital and frontal lobe. The mass measuring 2.8 cm in the right occipital lobe appears slightly larger with a more cystic and solid components. No clear evidence of acute or subacute infarct. Review of Systems Constitutional: Denies chills, Denies fever Eyes: bilateral blurred vision Ears, nose, mouth and throat: Denies headache Cardiovascular: Denies chest pain Respiratory: Reports cough, Reports dyspnea Gastrointestinal: Denies abdominal pain Integumentary: Denies rash Neurological: Reports as per HPI Psychiatric: Reports confusion Past Medical History Past Medical History: Cancer, Diabetes Mellitus, Eye Disorder, Thyroid Disorder Additional Past Medical History / Comment(s): HX TONGUE AND NECK CANCER-CHEMO AND RADIATION-NO SURGERY. Squamous cell carcinoma of the lung, metastatic. Pulmonary embolism. History of left-sided pleural effusion post Pleurx catheter insertion. History of IVC filter placement History of Any Multi-Drug Resistant Organisms: None Reported Past Surgical History: Orthopedic Surgery (Right ankle surgery) Additional Past Surgical History / Comment(s): eye surgery-BILAT GLAUCOMA. 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 AGO LT EYE Past Anesthesia/Blood Transfusion Reactions: No Reported Reaction Past Psychological History: No Psychological Hx Reported Smoking Status: Never smoker Past Alcohol Use History: None Reported Past Drug Use History: None Reported Additional Drug Use History / Comment(s): Remote history of marijuana use - Past Family History Mother Family Medical History: No Reported History Father Additional Family Medical History / Comment(s): EtOH abuse Medications and Allergies Home Medications Medication Instructions Recorded Confirmed Type Multivitamins, Thera [Multivitamin 1 tab PO DAILY 09/02/21 01/19/24 History (formulary)] Levothyroxine Sodium [Synthroid] 175 mcg PO DAILY 08/30/23 01/19/24 History Dorzolamide-Timol 2.23%/0.68% 1 drop BOTH EYES BID 12/16/23 01/19/24 History [Cosopt] HYDROcodone/APAP 10-325MG [[place] 1 tab PO Q6H PRN 12/16/23 01/19/24 History 10-325] Insulin Aspart [NovoLOG Flexpen] See Protocol SQ AC-TID 12/16/23 01/19/24 History Insulin Glargine,Hum.rec.anlog 16 units SQ HS 12/16/23 01/19/24 History [Lantus Solostar Pen] dexAMETHasone [Decadron] 4 mg PO TID 14 Days #42 tablet 01/03/24 01/19/24 Rx levETIRAcetam [Keppra] 750 mg PO BID 30 Days #60 tab 01/03/24 01/19/24 Rx Allergies Allergy/AdvReac Type Severity Reaction Status Date / Time No Known Allergies Allergy Verified 01/19/24 13:57 Physical Exam Vitals: Vital Signs Temp Pulse Resp BP Pulse Ox 01/23/24 09:00 71 18 114/84 98 01/23/24 08:00 68 18 124/88 97 01/23/24 07:00 67 11 L 120/86 98 01/23/24 06:00 69 13 123/104 98 01/23/24 05:00 77 12 109/91 97 01/23/24 04:00 98.5 F 68 14 127/93 96 01/23/24 03:00 73 18 118/91 97 01/23/24 02:00 66 17 112/88 95 01/23/24 01:00 69 13 123/95 94 L 01/23/24 00:00 97.9 F 64 22 125/86 96 01/22/24 23:00 67 17 121/85 97 01/22/24 22:00 70 21 130/94 94 L 01/22/24 21:00 73 8 L 121/85 98 01/22/24 20:00 97.6 F 96 22 111/84 97 01/22/24 19:00 83 16 108/83 96 01/22/24 18:00 100 16 108/83 96 01/22/24 17:00 98 16 140/104 97 01/22/24 16:00 98.5 F 90 14 126/94 98 01/22/24 15:00 78 15 136/96 97 01/22/24 14:00 78 18 132/91 99 01/22/24 13:00 76 13 127/94 97 01/22/24 12:00 98.3 F 77 24 142/94 98 01/22/24 11:00 71 18 138/98 96 Intake and Output 01/22/24 01/23/24 01/23/24 22:59 06:59 14:59 Intake Total 550 205 350 Output Total 2150 500 150 Balance -1600 -295 200 Intake: Intake, IV Titration 200 205 100 Amount Magnesium Sulfate-D5w Pmx 100 1 gm In Dextrose/Water 1 100ml.bag @ 100 mls/hr IVPB Q1H [facility] Rx#: [id number] Sodium Chloride 3%( 200 205 0 Hypertonic) 500 ml @ 30 mls/hr IV .[id number] ONE Rx #:[id number] Oral 350 250 Output: Drainage 50 Left Chest 50 Urine 2100 500 150 Stool 0 0 0 Other: Voiding Method External Catheter External Catheter External Catheter # Bowel Movements 0 Weight 71.3 kg - Constitutional General appearance: no acute distress - EENT Eyes: abnormal pupil (Left pupil dilated, non-reative; Right WNL) ENT: hearing grossly normal - Neck Neck: no lymphadenopathy - Respiratory Respiratory: right: CTA, left: diminished - Cardiovascular Rhythm: regular - Gastrointestinal General gastrointestinal: no distended, no tenderness - Integumentary Integumentary: no calor - Neurologic Neurologic: CNII-XII intact - Musculoskeletal Musculoskeletal: left sided weakness (Left upper extremity and left lower extremity 2/5 strength - only moving when prompted repeatedly. Decreased sensation to touch along left upper extremity.) - Psychiatric Psychiatric: no A&O x's 3 Results CBC & Chem 7: 01/23/24 02:25 01/23/24 04:13 Labs: Abnormal Lab Results - Last 24 Hours (Table) 01/22/24 01/22/24 01/22/24 Range/Units 11:34 13:01 13:33 RDW (11.5-15.5) % Plt Count (150-450) k/uL Lymphocytes # (1.0-4.8) k/uL Sodium 121 L 122 L (137-145) mmol/L Chloride (98-107) mmol/L BUN (9-20) mg/dL Creatinine (0.66-1.25) mg/dL POC Glucose (mg/dL) 143 H (70-110) mg/dL TSH (0.465-4.680) mIU/L 01/22/24 01/22/24 01/22/24 Range/Units 15:32 17:10 17:30 RDW (11.5-15.5) % Plt Count (150-450) k/uL Lymphocytes # (1.0-4.8) k/uL Sodium 122 L 124 L (137-145) mmol/L Chloride (98-107) mmol/L BUN (9-20) mg/dL Creatinine (0.66-1.25) mg/dL POC Glucose (mg/dL) 207 H (70-110) mg/dL TSH (0.465-4.680) mIU/L 01/22/24 01/22/24 01/22/24 Range/Units 19:24 21:15 23:18 RDW (11.5-15.5) % Plt Count (150-450) k/uL Lymphocytes # (1.0-4.8) k/uL Sodium 127 L 123 L 122 L (137-145) mmol/L Chloride (98-107) mmol/L BUN (9-20) mg/dL Creatinine (0.66-1.25) mg/dL POC Glucose (mg/dL) (70-110) mg/dL TSH (0.465-4.680) mIU/L 12/03/24 12/03/24 12/03/24 Range/Units 02:25 02:25 04:13 RDW 16.9 H (11.5-15.5) % Plt Count 534 H (150-450) k/uL Lymphocytes # 0.3 L (1.0-4.8) k/uL Sodium 123 L 124 L (137-145) mmol/L Chloride 94 L (98-107) mmol/L BUN 24 H (9-20) mg/dL Creatinine 0.61 L (0.66-1.25) mg/dL POC Glucose (mg/dL) (70-110) mg/dL TSH 10.300 H (0.465-4.680) mIU/L MRI - head: report reviewed, image reviewed Assessment and Plan Assessment: The patient is a 63-year-old male with a history of a stage II (cT3, cN1, M0), 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 He underwent concurrent chemoradiation finishing on 05/11. He was subsequently discovered to have a large left upper lung lesion with mediastinal adenopathy. Biopsy performed on 08/31/2023 was consistent with squamous cell carcinoma, P16+. He was started on chemo/immunotherapy and completed 1 cycle. He was hospitalized due to altered mental status and found to have a right occipital lobe brain metastasis. He underwent SBRT finishing 27 Gy / 3 fractions on 01/16/24. He was subsequently hospitalized following seizure and found to have left hemiparesis. Plan: 1. Left hemiparesis: Imaging does not reveal any evidence of stroke. However, there appears to be increased vasogenic edema, and slight size increase in the recently treated lesion. It is possible this represents post therapy changes. The patient was reportedly on 4 mg of dexamethasone twice a day at home when he was admitted. He is clinically improving with Decadron, however he remains quite debilitated and appears slightly confused. Would not recommend additional radiotherapy at this time. We'll continue to track the patient's course. 2. Metastatic squamous cell carcinoma of the head/neck: The patient had seemed to respond well to his first cycle of chemo/immunotherapy, however repeat hospitalizations have derailed his progress. If the patient does not have improvement in his performance status, he will be unlikely he will be able to do much in the way of additional treatment. Time with Patient: Greater than 30
[2024-01-23 11:49] LABS: Glucose,Whole Blood 406 mg/dL (70-110)
[2024-01-23] MEDS: FUROSEMIDE 10 MG/ML 2 ML VIAL IV ONE (12:20)
--- NOTE | 2024-01-23 12:56 | P.PN ---
Subjective Progress Note Date: 01/23/24 No acute events. Patient mentation has improved, he is more alert today. Patient was speaking with his on the phone when we arrived. Objective - Vital Signs Vital signs: Vital Signs Temp 98.5 F 01/23/24 04:00 Pulse 71 01/23/24 09:00 Resp 18 01/23/24 09:00 BP 114/84 01/23/24 09:00 Pulse Ox 98 01/23/24 09:00 FiO2 40 01/20/24 08:16 Intake & Output 01/22/24 01/23/24 01/23/24 18:59 06:59 18:59 Intake Total 783 655 350 Output Total 3100 950 150 Balance -2317 -295 200 Weight 71.3 kg Intake: Intake, IV Titration 450 305 100 Amount Magnesium Sulfate-D5w Pmx 200 1 gm In Dextrose/Water 1 100ml.bag @ 100 mls/hr IVPB Q1H [facility] Rx#: [id number] Magnesium Sulfate-D5w Pmx 100 1 gm In Dextrose/Water 1 100ml.bag @ 100 mls/hr IVPB Q1H [facility] Rx#: [id number] Sodium Chloride 3%( 250 305 0 Hypertonic) 500 ml @ 30 mls/hr IV .[id number] ONE Rx #:[id number] Oral 333 350 250 Output: Drainage 50 Left Chest 50 Urine 3100 900 150 Stool 0 0 0 Other: Voiding Method External Catheter External Catheter External Catheter # Bowel Movements 0 - Constitutional General appearance: Present: average body habitus, no acute distress - EENT Eyes: Present: anicteric sclerae, EOMI ENT: Present: hearing grossly normal - Respiratory Details: breathing is even and unlabored - Cardiovascular Details: well perfused - Integumentary Integumentary: Absent: cyanotic, jaundiced - Musculoskeletal Musculoskeletal: Present: left sided weakness - Labs CBC & Chem 7: 01/23/24 02:25 01/23/24 04:13 Labs: Abnormal Lab Results - Last 24 Hours (Table) 01/22/24 01/22/24 01/22/24 Range/Units 11:34 13:01 13:33 RDW (11.5-15.5) % Plt Count (150-450) k/uL Lymphocytes # (1.0-4.8) k/uL Sodium 121 L 122 L (137-145) mmol/L Chloride (98-107) mmol/L BUN (9-20) mg/dL Creatinine (0.66-1.25) mg/dL POC Glucose (mg/dL) 143 H (70-110) mg/dL TSH (0.465-4.680) mIU/L 01/22/24 01/22/24 01/22/24 Range/Units 15:32 17:10 17:30 RDW (11.5-15.5) % Plt Count (150-450) k/uL Lymphocytes # (1.0-4.8) k/uL Sodium 122 L 124 L (137-145) mmol/L Chloride (98-107) mmol/L BUN (9-20) mg/dL Creatinine (0.66-1.25) mg/dL POC Glucose (mg/dL) 207 H (70-110) mg/dL TSH (0.465-4.680) mIU/L 01/22/24 01/22/24 01/22/24 Range/Units 19:24 21:15 23:18 RDW (11.5-15.5) % Plt Count (150-450) k/uL Lymphocytes # (1.0-4.8) k/uL Sodium 127 L 123 L 122 L (137-145) mmol/L Chloride (98-107) mmol/L BUN (9-20) mg/dL Creatinine (0.66-1.25) mg/dL POC Glucose (mg/dL) (70-110) mg/dL TSH (0.465-4.680) mIU/L 01/23/24 01/23/24 01/23/24 Range/Units 02:25 02:25 04:13 RDW 16.9 H (11.5-15.5) % Plt Count 534 H (150-450) k/uL Lymphocytes # 0.3 L (1.0-4.8) k/uL Sodium 123 L 124 L (137-145) mmol/L Chloride 94 L (98-107) mmol/L BUN 24 H (9-20) mg/dL Creatinine 0.61 L (0.66-1.25) mg/dL POC Glucose (mg/dL) (70-110) mg/dL TSH 10.300 H (0.465-4.680) mIU/L - Imaging and Cardiology MRI - head: report reviewed Assessment and Plan (1) Left hemiparesis Current Visit: Yes Status: Acute Code(s): G81.94 - HEMIPLEGIA, UNSPECIFIED AFFECTING LEFT NONDOMINANT SIDE SNOMED Code(s): 578734295 (2) Metastasis to brain Current Visit: Yes Status: Acute Priority: High Code(s): C79.31 - SECONDARY MALIGNANT NEOPLASM OF BRAIN SNOMED Code(s): 59066926 (3) Squamous cell lung cancer Current Visit: Yes Status: Acute Priority: High Code(s): C34.90 - MALIGNANT NEOPLASM OF UNSP PART OF UNSP BRONCHUS OR LUNG SNOMED Code(s): 068173551 (4) Hyponatremia Current Visit: Yes Status: Acute Priority: High Code(s): E87.1 - HYPO- OSMOLALITY AND HYPONATREMIA SNOMED Code(s): 88576088 Plan: Left hemiparesis: The patient presented with new onset of the same. Differentials included new CVA, versus rebound vasogenic edema postradiation with postseizure Anuj's pa ralysis also considered a possibility. -The CT report had mentioned the possibility of progression of the brain mass, although the measured size was in the same range. Case was extensively discussed with the ER physician, [facility], and radiation oncology. The degree of midline shift was mild. It was subsequently determined by neurology that the left leg abnormality was actually chronic and stable. Radiation oncology reviewed his scans remotely, and determined that the size of the mass was stable or slightly less. -The patient was therefore placed back on higher dose of IV steroids to treat any component of rebound edema. He was admitted to the ICU, and is being followed by [facility], and neurology. -Repeat CT brain on 01/20 showing similar extensive vasogenic edema in the right occipital and parietal lobes. Possible slight increase in leftward midline shift -Brain MRI showing right parietal/occipital enhancing complex mass with vasogenic edema effacing the right lateral ventricle, now demonstrating some cystic components around the periphery. No CVA or new pathology noted -Continues on decadron 6mg q6hrs, with improvement in mentation. 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 3% sodium drip ordered, with initial improvement in sodium levels to 127. -After sodium drip d/c, sodium 124 today. PO sodium supplementation started Squamous cell lung cancer: The patient has had 1 cycle of systemic therapy. Treatment has been on hold due to various factors, as described in the HPI. This will be resumed once his acute problems are appropriately controlled. Doctor attests: I performed a history and physical examination of this patient, developed impression and plan of care. Discussed with dictator. I agree with dictators note, documented as a scribe.
[2024-01-23 13:56] LABS: Glucose,Whole Blood 439 mg/dL (70-110)
--- NOTE | 2024-01-23 13:57 | P.PN ---
Subjective Progress Note Date: 01/23/24 I am following-up with patient and per nurse he is moving his left upper extremity better. His 3% saline was stopped and he was started on salt tablets per Nephrology team. Patient was sleepy on my encounter but states he is doing well. Objective - Vital Signs Vital signs: Vital Signs Temp 98.5 F 01/23/24 04:00 Pulse 102 H 01/23/24 13:00 Resp 17 01/23/24 13:00 BP 95/79 01/23/24 13:00 Pulse Ox 93 L 01/23/24 13:00 FiO2 40 01/20/24 08:16 Intake & Output 01/22/24 01/23/24 01/23/24 18:59 06:59 18:59 Intake Total 783 655 450 Output Total 3100 950 550 Balance -2317 -295 -100 Weight 71.3 kg Intake: Intake, IV Titration 450 305 200 Amount Magnesium Sulfate-D5w Pmx 200 1 gm In Dextrose/Water 1 100ml.bag @ 100 mls/hr IVPB Q1H [facility] Rx#: [id number] Magnesium Sulfate-D5w Pmx 200 1 gm In Dextrose/Water 1 100ml.bag @ 100 mls/hr IVPB Q1H [facility] Rx#: [id number] Sodium Chloride 3%( 250 305 0 Hypertonic) 500 ml @ 30 mls/hr IV .[id number] ONE Rx #:[id number] Oral 333 350 250 Output: Drainage 50 Left Chest 50 Urine 3100 900 550 Stool 0 0 0 Other: Voiding Method External Catheter External Catheter External Catheter # Bowel Movements 0 - Exam General: Lying in bed and is not in acute distress Neuro: Somewhat limited. Patient is sleepy during my examination. He was briefly awakeable to voice. He is oriented to self place and time. Is following simple commands. The pupils are round the right is about 3 mm and the left is about 6 mm the right is reactive to light briskly while the left is sluggish reactive to light. - Labs CBC & Chem 7: 01/23/24 02:25 01/23/24 04:13 Labs: Abnormal Lab Results - Last 24 Hours (Table) 01/22/24 01/22/24 01/22/24 Range/Units 13:33 15:32 17:10 RDW (11.5-15.5) % Plt Count (150-450) k/uL Lymphocytes # (1.0-4.8) k/uL Sodium 122 L 122 L (137-145) mmol/L Chloride (98-107) mmol/L BUN (9-20) mg/dL Creatinine (0.66-1.25) mg/dL POC Glucose (mg/dL) 207 H (70-110) mg/dL TSH (0.465-4.680) mIU/L Cortisol (3.1-22.4) UG/DL 01/22/24 01/22/24 01/22/24 Range/Units 17:30 19:24 21:15 RDW (11.5-15.5) % Plt Count (150-450) k/uL Lymphocytes # (1.0-4.8) k/uL Sodium 124 L 127 L 123 L (137-145) mmol/L Chloride (98-107) mmol/L BUN (9-20) mg/dL Creatinine (0.66-1.25) mg/dL POC Glucose (mg/dL) (70-110) mg/dL TSH (0.465-4.680) mIU/L Cortisol (3.1-22.4) UG/DL 01/22/24 01/23/24 01/23/24 Range/Units 23:18 02:25 02:25 RDW 16.9 H (11.5-15.5) % Plt Count 534 H (150-450) k/uL Lymphocytes # 0.3 L (1.0-4.8) k/uL Sodium 122 L 123 L (137-145) mmol/L Chloride 94 L (98-107) mmol/L BUN 24 H (9-20) mg/dL Creatinine 0.61 L (0.66-1.25) mg/dL POC Glucose (mg/dL) (70-110) mg/dL TSH 10.300 H (0.465-4.680) mIU/L Cortisol (3.1-22.4) UG/DL 01/23/24 01/23/24 01/23/24 Range/Units 04:13 07:45 11:47 RDW (11.5-15.5) % Plt Count (150-450) k/uL Lymphocytes # (1.0-4.8) k/uL Sodium 124 L (137-145) mmol/L Chloride (98-107) mmol/L BUN (9-20) mg/dL Creatinine (0.66-1.25) mg/dL POC Glucose (mg/dL) 406 H (70-110) mg/dL TSH (0.465-4.680) mIU/L Cortisol 2.6 L (3.1-22.4) UG/DL Assessment and Plan Assessment: Mr. 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 He had been recently decreased out his dexamethasone and has had increasing edema. He has now flaccid on his left arm and exhibits increased weakness on his left side with a left homonymous hemianopia. This is likely due to the increased edema surrounding his mass. Brain metastasis over the right occipital with significant vasogenic edema (worse edema compared to prior MRI about a month ago). Patient has left homonymous hemianopsia, chronic dilated left pupils, neglecting the left side. 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 Plan: Patient is on dexamethasone 6 mg every 6 hours. If patient symptoms do not improve recommend to change it to 6 mg every 4 hours. MRI of the brain w/: Right parietal/occipital enhancing complex mass with vasogenic edema effacing the right lateral ventricle. This mass now demonstrates some cystic component around the periphery which is totality is larger compared to the prior where there is no significant cystic component on 12/29/2023. Patient is on salt tablet a per nephrology recommendation Is on Keppra 750 mg twice daily and it seems it was started as a prophylaxis. Oncology is on board. Defer the rest of the medical management to primary and other specialist Time with Patient: Less than 30
[2024-01-23] MEDS: INSULIN DETEMIR (LEVEMIR) 100 UNIT/ML SYR SQ STA (14:30)
--- NOTE | 2024-01-23 14:40 | P.PN ---
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 Subsequently, he was lost to follow-up and he presented back to us with a large left upper lobe mass and I performed bronchoscopy on this patient back in August 2023 and the findings were consistent with squamous cell carcinoma. The PET scan from September 2023 showed left upper lobe mass, PET avid in addition to metastatic activity involving the mediastinum and the right supraclavicular and bilateral lymph node lymphadenopathy in addition to left inferior pleural space FDG uptake and metastatic mediastinal lymphadenopathy. The patient was started on systemic treatment including a combination of carboplatinum, Alimta and Keytruda. While taking his second cycle of treatment, on 12/15/2023, the patient was noted to being have increased shortness of breath. He was sent to the emergency department and a CT angiogram of the chest was done and the patient was found to have small segmental branch pulmonary embolism involving the right lower lobe. Minimal overall clot burden. There was new moderate to large left-sided effusion along with atelectatic collapse of the left lower lobe. New moderate right-sided pleural effusion with adjacent atelectasis. There was also pleural nodularity in the posterior left upper lobe, additional disease progression with new pericardial lymphadenopathy measuring up to 2.1 cm in size and there was also a large left upper lobe mass encasing the left hilum that was measuring 11.9 cm in size with metastatic mediastinal and hilar l ymphadenopathy and the patient had shown some partial response as the patient was receiving systemic chemotherapy. The echocardiogram that was done at that time on 12/15/2023 showed preserved LV function, normal RV size and function. Venous Doppler of the lower extremity that was done on 12/16/2023 showed no evidence of any DVT. Noted, the patient had a Pleurx catheter insertion on 12/19/2023 into the left pleural space and the fluid cytology was essentially negative for carcinoma or malignancy. The patient was discharged home and anticoagulation with Eliquis. Readmitted to the hospital on 12/28/2023 with altered mentation. The patient had unresponsiveness and new onset seizures. MRI of the brain was done and the patient was found to have right parietal/occipital mass with vasogenic edema. The patient was started on Keppra and Decadron. Anticoagulation was stopped and the patient was given an IVC filter on 01/02/2024 and the patient was discharged home on 01/03/2024 and he was advised to continue Decadron 4 mg p.o. 3 times daily and Keppra 750 mg p.o. twice daily. The patient was also seen by radiation oncology. Received SBRT to his brain, a total of 3 sessions earlier this week. The patient came into the emergency department today with strokelike symptoms and left-sided weakness. The patient also had altered mentation. His last known normal was unclear but this was sometime yesterday night. The patient was experiencing left-sided weakness, facial droop and dysarthria. He also had developed a dilated left pupil which was noted few weeks back. CT scan of the brain was done in Emergency Department and the patient was found to have a 2 point centimeter lesion that had been enlarging compared to the previous CAT scan of the brain that was done on 12/28/2023. The patient had hyperdense right occipital lobe 2.1 cm lesion with increasing surrounding vasogenic edema and a 3 mm left shift from midline. The CTA of the brain was also done and it showed no evidence of dissection of the cervical or internal carotid arteries or vertebral arteries. No evidence of any high-grade stenosis intracranially. There was a enhancing right occipital lobe mass with surrounding vasogenic edema. In the emergency, the patient had also 2 episodes of seizures. The case was discussed with outside facilities regarding transfer and was found that there was no indication for this medical transfer. The patient was started on Decadron 6 mg IV every 6 hours and the patient was kept on Keppra 750 mg IV every 12 hours. He was admitted to the intensive care unit for further management. He seems to be quite obtunded at this point in time. Blood gas was also done in the ICU and the patient was found to have a pH of 7.16 with a pCO2 of 85 and a pO2 of 70 and this was done by the patient being in 60s of oxygen by nasal cannula. Accordingly, the patient was placed on a BiPAP. Chest x-ray has not been done yet. The white cell count is 11.5 with a hemoglobin 12.7 and platelet count of 488. BUN 25 L and 0.6 and a sodium levels at 128. Blood sugar is at 454. Norm al UA. Urine drug screen is positive for marijuana and opiates. 01/20/2024, the patient is much more awake compared to yesterday. The patient is unable to move his left upper and left lower extremity. He is able to wiggle his toes and his fingers on the left. Mental status is improved. No further seizure activity has been noted. The patient remains on a combination of Keppra and Decadron. Keppra is 500 mg IV every 12 hours and the patient is also on Decadron at 6 mg IV every 6 hours. The patient was further taken off the BiPAP. He is currently on 2 L of oxygen by nasal cannula. Pulse ox is 98%. Morning blood work shows a WBC count of 8.9, hemoglobin 10.9 and platelet count of 378. BUN is 19 with a creatinine of 0.49 and a sodium levels at 133. He does have a Pleurx catheter in his left chest and a total of 100 cc of pleural fluid was evacuated this morning. The follow-up chest x-ray shows some limited improvement in aeration of the left lung base. . On today's evaluation of 01/21/2024, the patient is free of any seizures. He has not had any seizures over the past 24 hours. Remains on Keppra. Remains on Decadron. He is a bit confused and delirious. Trying to get out of bed. He has a sitter at the bedside. Left side remains weak although there is some li mited improving motor function left upper extremity on today's evaluation. The patient has no signs of any respiratory distress. The white cell count is at 9.1 with a hemoglobin 11.7 and a platelet count of 447. BUN is 23 with a creatinine of 0.6. Sodium level is at 126. The patient is drinking liquids. No other significant events overnight. He remains on Levemir insulin 8 units twice daily and sliding scale insulin coverage. Patient evaluated today on 01/22/2024, patient seems to be very comfortable, not in any distress, he is on few liters nasal cannula, and intermittently on BiPAP 01/24/40%, he was just started on 3% saline for his hyponatremia with a sodium of 123, patient also is on Decadron at 6 mg IV push every 6 hours for his brain metastasis. His last seizure was 01/18, patient has metastatic head and neck cancer with metastasis to the lungs and to the brain. He also has a left Pleurx catheter in place for recurrent left-sided pleural effusion CT of the brain showed right occipital mass which seems to be quite large. Patient is being followed by nephrology as well as by hematology/oncology. Receiving chemotherapy as well as immunotherapy. Pulmonary turk he does not seem to be in distress, seems to be fairly comfortable, he does have left-sided paralysis WBC count is 6.6 hemoglobin 12.3 sodium is 123 potassium 4.6. Renal profile is normal Patient was evaluated today on 01/23/2024, remains in the ICU, however the patient has had no seizures in the last few days. Being followed by many consultants including oncology and radiation oncology patient seems to be doing fairly well, does not seem to be in any distress. He is on room air, sodium remains low at 124, being addressed by nephrology. Patient had no seizure activity. And he seems to have chronic hyponatremia. 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 Due blood sugar today is 439, hence his true sodium is actually slightly in the 129 range Objective - Vital Signs Vital signs: Vital Signs Temp 98.0 F 01/23/24 14:29 Pulse 94 01/23/24 14:29 Resp 18 01/23/24 14:29 BP 109/74 01/23/24 14:29 Pulse Ox 97 01/23/24 14:29 FiO2 40 01/20/24 08:16 Intake & Output 01/22/24 01/23/24 01/23/24 18:59 06:59 18:59 Intake Total 783 655 450 Output Total 3100 950 550 Balance -2317 -295 -100 Weight 71.3 kg Intake: Intake, IV Titration 450 305 200 Amount Magnesium Sulfate-D5w Pmx 200 1 gm In Dextrose/Water 1 100ml.bag @ 100 mls/hr IVPB Q1H [facility] Rx#: [id number] Magnesium Sulfate-D5w Pmx 200 1 gm In Dextrose/Water 1 100ml.bag @ 100 mls/hr IVPB Q1H [facility] Rx#: [id number] Sodium Chloride 3%( 250 305 0 Hypertonic) 500 ml @ 30 mls/hr IV .[id number] ONE Rx #:[id number] Oral 333 350 250 Output: Drainage 50 Left Chest 50 Urine 3100 900 550 Stool 0 0 0 Other: Voiding Method External Catheter External Catheter External Catheter # Bowel Movements 0 - Exam GENERAL EXAM: Revealed a 63-year-old white male in no distress, seems to be appropriate, is at bedside feeding him. HEAD: Normocephalic. EYES: Dilated left pupil NOSE: Clear with pink turbinates. THROAT: No erythema or exudates. NECK: No masses, no JVD. CHEST: No chest wall deformity. LUNGS: Equal air entry with bibasilar crackles, left greater than right, diminished left lung base. CVS: S1 and S2 normal with no audible murmur, regular rhythm. ABDOMEN: No hepatosplenomegaly, normal bowel sounds, no guarding or rigidity. SKIN: No rashes CENTRAL NERVOUS SYSTEM: Left-sided weakness, dilated left pupil, free of any seizures. . Awake and alert and communicating. Left-sided paralysis is unchanged. less confused today compared to yesterday EXTREMITIES: There is no peripheral edema. No clubbing, no cyanosis. Peripheral pulses are intact. - Labs CBC & Chem 7: 01/23/24 02:25 01/23/24 04:13 Labs: Abnormal Lab Results - Last 24 Hours (Table) 01/22/24 01/22/24 01/22/24 Range/Units 15:32 17:10 17:30 RDW (11.5-15.5) % Plt Count (150-450) k/uL Lymphocytes # (1.0-4.8) k/uL Sodium 122 L 124 L (137-145) mmol/L Chloride (98-107) mmol/L BUN (9-20) mg/dL Creatinine (0.66-1.25) mg/dL POC Glucose (mg/dL) 207 H (70-110) mg/dL TSH (0.465-4.680) mIU/L Cortisol (3.1-22.4) UG/DL 01/22/24 01/22/24 01/22/24 Range/Units 19:24 21:15 23:18 RDW (11.5-15.5) % Plt Count (150-450) k/uL Lymphocytes # (1.0-4.8) k/uL Sodium 127 L 123 L 122 L (137-145) mmol/L Chloride (98-107) mmol/L BUN (9-20) mg/dL Creatinine (0.66-1.25) mg/dL POC Glucose (mg/dL) (70-110) mg/dL TSH (0.465-4.680) mIU/L Cortisol (3.1-22.4) UG/DL 01/23/24 01/23/24 01/23/24 Range/Units 02:25 02:25 04:13 RDW 16.9 H (11.5-15.5) % Plt Count 534 H (150-450) k/uL Lymphocytes # 0.3 L (1.0-4.8) k/uL Sodium 123 L 124 L (137-145) mmol/L Chloride 94 L (98-107) mmol/L BUN 24 H (9-20) mg/dL Creatinine 0.61 L (0.66-1.25) mg/dL POC Glucose (mg/dL) (70-110) mg/dL TSH 10.300 H (0.465-4.680) mIU/L Cortisol (3.1-22.4) UG/DL 01/23/24 01/23/24 01/23/24 Range/Units 07:45 11:47 13:54 RDW (11.5-15.5) % Plt Count (150-450) k/uL Lymphocytes # (1.0-4.8) k/uL Sodium (137-145) mmol/L Chloride (98-107) mmol/L BUN (9-20) mg/dL Creatinine (0.66-1.25) mg/dL POC Glucose (mg/dL) 406 H 439 H (70-110) mg/dL TSH (0.465-4.680) mIU/L Cortisol 2.6 L (3.1-22.4) UG/DL Assessment and Plan Assessment: Pression: Seizures, likely a manifestation of CORK CUTTER metastases, maintained on Keppra on outpatient basis. The patient also has an enlarging right occipital brain lesion measuring 2.1 cm in size with surrounding edema and 3 mm leftward midline shift. The patient is currently on a combination of Decadron and Keppra. Neurology on the case. Continues to have paralysis of the left upper and left lower extremity. Delirium/confusion, multifactorial. Acute hypoxic/hypercapnic respiratory failure, currently off the BiPAP and patient is on room air oxygen Metastatic CORK CUTTER lesion, right occipital, currently on Decadron, status post SBRT Left-sided weakness, rule out Anuj's paralysis following seizure. Rule out motor deficits related to metastatic brain lesion and vasogenic edema, clinically unchanged Metastatic squamous cell carcinoma of the lung versus metastatic from head and neck/tongue cancer from 2021, initiated on a combination of carboplatin Alimta and Keytruda on 12/06/2023 and the patient received only 1 cycle. History of tongue cancer Left upper lobe mass measuring 12 cm in size with extensive mediastinal lymphadenopathy consistent with metastatic disease Pulmonary embolism, small segmental, status post IVC filter placement History of Pleurx catheter insertion for a left-sided pleural effusion, pleural fluid cytology has been negative for malignancy, left lung is quite opacified due to a left upper lobe tumor, atelectasis and a left-sided pleural effusion. Diabetes mellitus with steroid-induced hyperglycemia Hypothyroidism Recommendation: Continue seizure medications Continue to intermittently drain the Pleurx catheter/left-sided pleural effusion Continue Decadron Continue Seroquel Continue insulin Close monitoring for recurrent seizures patient is now on Keppra Continue IVC filter for his previous history of pulmonary embolism patient cannot have anticoagulation therapy because of his CORK CUTTER metastasis Continue IV Protonix Continue to monitor sodium Address hyperglycemia accordingly Patient is being seen by radiation oncology and medical oncology. Will transfer the patient to 3 S., or medical surgical floor Will continue to Will continue to follow Time with Patient: Less than 30
[2024-01-23] MEDS: TOLVAPTAN 15 MG TABLET PO ONE (16:24)
[2024-01-23] MEDS: HYDROmorphone 1 MG/ML 1 ML SYRINGE IVP PRN (16:24)
[2024-01-23 16:41] LABS: Glucose,Whole Blood 304 mg/dL (70-110)
[2024-01-23 19:56] LABS: Glucose,Whole Blood 324 mg/dL (70-110)
[2024-01-23 20:35] LABS: Glucose,Whole Blood 309 mg/dL (70-110)
[2024-01-23] MEDS: FLUDROCORTISONE 0.1 MG TAB PO SCH (20:48)
[2024-01-24 05:56] LABS: Glucose,Whole Blood 219 mg/dL (70-110)
[2024-01-24 06:44] LABS: Anisocytosis Slight; Basophils % (A) 0 %; Eosinophils % (A) 0 %; HCT 40.7 % (39.0-53.0); HGB 13.4 gm/dL (13.0-17.5); Lymphocytes # (A) 0.4 k/uL (1.0-4.8); Lymphocytes % (A) 5 %; MCH 32.2 pg (25.0-35.0); MCHC 32.8 g/dL (31.0-37.0); MCV 98.2 fL (80.0-100.0); Macrocytosis Slight; Mean Platelet Volume 6.6; Monocytes # (A) 0.6 k/uL (0-1.0); Monocytes % (A) 7 %; Neutrophils # (A) 7.9 k/uL (1.3-7.7); Neutrophils % (A) 88 %; Platelet Count 456 k/uL (150-450); RBC 4.15 m/uL (4.30-5.90); RDW 16.5 % (11.5-15.5); WBC 8.9 k/uL (3.8-10.6)
[2024-01-24 06:56] LABS: African American GFR (CKD) >90 (>60 ml/min/1.73 sqM); Anion Gap 2 mmol/L; Blood Urea Nitrogen 35 mg/dL (9-20); Calcium 8.5 mg/dL (8.4-10.2); Carbon Dioxide 28 mmol/L (22-30); Chloride 93 mmol/L (98-107); Glucose 230 mg/dL (74-99); Magnesium 1.7 mg/dL (1.6-2.3); Non-African American GFR(CKD) >90 (>60 ml/min/1.73 sqM); Potassium 4.5 mmol/L (3.5-5.1); Sodium 123 mmol/L (137-145)
[2024-01-24] MEDS ORDERED: LORazepam 2 MG/ML INJ IV PRN (09:53)
--- NOTE | 2024-01-24 10:09 | P.PN ---
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 Known left-sided weakness with left pupil dilatation. CT of the brain demonstrated 2.1 cm lesion enlarging from prior with worsening vasogenic edema and left midline shift. Had 1 seizure with EMS. Initial vital signs were remarkable for tachycardia with heart rate of 102 and blood pressure of 184/117. Initial laboratory analysis was remarkable for white blood cell count 11.5, hemoglobin 12.7, platelets 488, sodium 128. At that time ABG showed a pH of 7.16 with a pCO2 of 85. Additionally patient underwent CTA of the head and neck which showed no significant stenosis. Chest x-ray showed increasing inte rstitial density concerning for pulmonary vascular congestion with ongoing volume loss and extensive pleural opacity throughout the left hemithorax with left basilar Pleurx catheter in place. Patient was admitted to the ICU with breakthrough seizure. Patient had 1 seizure with EMS and 2 seizures in the emergency department the second requiring the use of Ativan to abort the seizure. Neurology and critical care were consulted. Consideration was made for transfer but it was found that there is no indication for medical transfer. Patient was started on Decadron 6 mg IV every 6 hours and Keppra 750 mg IV every 12 hours. Was started on BiPAP due to the ABG results which was weaned off by 01/19, was briefly on an insulin gtt. sodium noted to be downtrending. was placed on hypertonic briefly however transitioned to salt tablets/fluid restriction Overnight the patient has had no seizures. He has changed his code status from full code to DNR. He is ok with intubation. Objective - Vital Signs Vital signs: Vital Signs Temp 96.6 F L 01/24/24 08:02 Pulse 107 H 01/24/24 08:02 Resp 20 01/24/24 08:02 BP 139/91 01/24/24 08:02 Pulse Ox 97 01/24/24 08:02 FiO2 40 01/20/24 08:16 Intake & Output 01/23/24 01/24/24 01/24/24 18:59 06:59 18:59 Intake Total 450 120 148 Output Total 590 300 Balance -140 -180 148 Weight 72.5 kg Intake: IV 30 Invasive Line 1 10 Invasive Line 2 10 Invasive Line 3 10 Intake, IV Titration 200 Amount Magnesium Sulfate-D5w Pmx 200 1 gm In Dextrose/Water 1 100ml.bag @ 100 mls/hr IVPB Q1H [facility] Rx#: [id number] Sodium Chloride 3%( 0 Hypertonic) 500 ml @ 30 mls/hr IV .[id number] ONE Rx #:[id number] Oral 250 120 118 Output: Chest Tube Drainage 40 Pleural Catheter 40 Urine 550 300 Stool 0 Other: Voiding Method External Catheter External Catheter External Catheter # Voids 1 # Bowel Movements 0 - Exam General: non toxic, no distress, male appears stated age, male. Derm: warm, dry Head: atraumatic, normocephalic, symmetric Eyes: EOMI, no lid lag, anicteric sclera, pupils equal round reactive to light ENT: Nose and ears atraumatic, no thrush, no pharyngeal erythema Neck: No thyromegaly, no cervical lymphadenopathy, trachea midline, supple Mouth: no lip lesion, mucus membranes moist Cardiovascular: S1S2 reg, no murmur, positive posterior tibial pulse bilateral, no edema, capillary refill less than 2 seconds Lungs: clear to ascultation bilateral. there is a pleurex catheter on left anterior chest wall. Abdominal: soft, nontender to palpation, no guarding, no appreciable organomegaly, normal bowel sounds Ext: no ble edema Neuro: LUE and LLE motor strength 3/5+. RUE and RLE motor strength 5/5. gait not tested Psych: Alert, oriented, appropriate affect - Labs CBC & Chem 7: 01/24/24 06:19 01/24/24 06:19 Labs: Abnormal Lab Results - Last 24 Hours (Table) 01/23/24 01/23/24 01/23/24 Range/Units 07:45 11:47 13:54 RBC (4.30-5.90) m/uL RDW (11.5-15.5) % Plt Count (150-450) k/uL Neutrophils # (1.3-7.7) k/uL Lymphocytes # (1.0-4.8) k/uL Sodium (137-145) mmol/L Chloride (98-107) mmol/L BUN (9-20) mg/dL Glucose (74-99) mg/dL POC Glucose (mg/dL) 406 H 439 H (70-110) mg/dL Cortisol 2.6 L (3.1-22.4) UG/DL 01/23/24 01/23/24 01/23/24 Range/Units 15:25 16:37 19:51 RBC (4.30-5.90) m/uL RDW (11.5-15.5) % Plt Count (150-450) k/uL Neutrophils # (1.3-7.7) k/uL Lymphocytes # (1.0-4.8) k/uL Sodium 121 L 123 L (137-145) mmol/L Chloride (98-107) mmol/L BUN (9-20) mg/dL Glucose (74-99) mg/dL POC Glucose (mg/dL) 304 H (70-110) mg/dL Cortisol (3.1-22.4) UG/DL 01/23/24 01/23/24 01/24/24 Range/Units 19:52 20:33 05:52 RBC (4.30-5.90) m/uL RDW (11.5-15.5) % Plt Count (150-450) k/uL Neutrophils # (1.3-7.7) k/uL Lymphocytes # (1.0-4.8) k/uL Sodium (137-145) mmol/L Chloride (98-107) mmol/L BUN (9-20) mg/dL Glucose (74-99) mg/dL POC Glucose (mg/dL) 324 H 309 H 219 H (70-110) mg/dL Cortisol (3.1-22.4) UG/DL 01/24/24 01/24/24 Range/Units 06:19 06:19 RBC 4.15 L (4.30-5.90) m/uL RDW 16.5 H (11.5-15.5) % Plt Count 456 H (150-450) k/uL Neutrophils # 7.9 H (1.3-7.7) k/uL Lymphocytes # 0.4 L (1.0-4.8) k/uL Sodium 123 L (137-145) mmol/L Chloride 93 L (98-107) mmol/L BUN 35 H (9-20) mg/dL Glucose 230 H (74-99) mg/dL POC Glucose (mg/dL) (70-110) mg/dL Cortisol (3.1-22.4) UG/DL Assessment and Plan Assessment: #) Breakthrough seizure. This is likely 2/2 to right pareital occiptal brain mass with vasogenic edema effacing the right lateral ventricle. Continue IV keppra 750 mg BID as antiepileptic. Will d/w neurology about switching over to PO keppra. seizure precautions. no driving for 6 months. 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 ?metastatic from left tongu. #) Hyponatremia - SIADH vs. cerebral salt wasting. Continue fluid restriction at 1500 cc daily. Previously on 3% on 01/21. Continue salt tabs 1 g BID, may need to increase to TID. Ideally would want sodium level closer to 130 prior to discharge. Consideration of possible usage of tolvaptan but check CT abd pelvis to evaluate liver mets. POssible concern of cerebral salt wasint- continue fludorocrtisone 0.1 mg BID #) Eurthyroid sick syndrome- continue tsh in 4-6 weeks outpatient. Continue home levothryoxine 176 mgcg daily #) Dm2 wiht steroid induced hyperglycemia. a1c of 8.2%. increase levemir to 12 units daily. continue sliding scale insulin. Need to watch his consumption of PO intake given his malignancy #) Anemia, likely multifactorial, continue to monitor hgb daily #) Acute hypercapnic respiratory failure, resolved #) advanced care planning- code status changed from full code to DNR, ok for intubation/mechanical ventilation. DVT Ppx: SCds. s/p ivc filter. hold pharmacological dvt ppx for now given brain mets Anticipate discharge date 48-[address]: Probably SNF. Time with Patient: Greater than 30
--- NOTE | 2024-01-24 10:17 | P.PN ---
Subjective Patient is seen in follow-up for hyponatremia. Received Samsca yesterday. Sodium level stable at 123 this morning. Resting in bed. Vital signs are stable. General: No acute distress. HEENT: Head exam is unremarkable. LUNGS: No audible rhonchi or wheezes. HEART: Rate and Rhythm are regular. ABDOMEN: Nontender. EXTREMITITES: Trace edema. Objective - Vital Signs Vital signs: Vital Signs Temp 96.6 F L 01/24/24 08:02 Pulse 107 H 01/24/24 08:02 Resp 20 01/24/24 08:02 BP 139/91 01/24/24 08:02 Pulse Ox 97 01/24/24 08:02 FiO2 40 01/20/24 08:16 Intake & Output 01/23/24 01/24/24 01/24/24 18:59 06:59 18:59 Intake Total 450 120 148 Output Total 590 300 Balance -140 -180 148 Weight 72.5 kg Intake: IV 30 Invasive Line 1 10 Invasive Line 2 10 Invasive Line 3 10 Intake, IV Titration 200 Amount Magnesium Sulfate-D5w Pmx 200 1 gm In Dextrose/Water 1 100ml.bag @ 100 mls/hr IVPB Q1H [facility] Rx#: [id number] Sodium Chloride 3%( 0 Hypertonic) 500 ml @ 30 mls/hr IV .[id number] ONE Rx #:[id number] Oral 250 120 118 Output: Chest Tube Drainage 40 Pleural Catheter 40 Urine 550 300 Stool 0 Other: Voiding Method External Catheter External Catheter External Catheter # Voids 1 # Bowel Movements 0 - Labs CBC & Chem 7: 01/24/24 06:19 01/24/24 06:19 Labs: Abnormal Lab Results - Last 24 Hours (Table) 01/23/24 01/23/24 01/23/24 Range/Units 07:45 11:47 13:54 RBC (4.30-5.90) m/uL RDW (11.5-15.5) % Plt Count (150-450) k/uL Neutrophils # (1.3-7.7) k/uL Lymphocytes # (1.0-4.8) k/uL Sodium (137-145) mmol/L Chloride (98-107) mmol/L BUN (9-20) mg/dL Glucose (74-99) mg/dL POC Glucose (mg/dL) 406 H 439 H (70-110) mg/dL Cortisol 2.6 L (3.1-22.4) UG/DL 01/23/24 01/23/24 01/23/24 Range/Units 15:25 16:37 19:51 RBC (4.30-5.90) m/uL RDW (11.5-15.5) % Plt Count (150-450) k/uL Neutrophils # (1.3-7.7) k/uL Lymphocytes # (1.0-4.8) k/uL Sodium 121 L 123 L (137-145) mmol/L Chloride (98-107) mmol/L BUN (9-20) mg/dL Glucose (74-99) mg/dL POC Glucose (mg/dL) 304 H (70-110) mg/dL Cortisol (3.1-22.4) UG/DL 01/23/24 01/23/24 01/24/24 Range/Units 19:52 20:33 05:52 RBC (4.30-5.90) m/uL RDW (11.5-15.5) % Plt Count (150-450) k/uL Neutrophils # (1.3-7.7) k/uL Lymphocytes # (1.0-4.8) k/uL Sodium (137-145) mmol/L Chloride (98-107) mmol/L BUN (9-20) mg/dL Glucose (74-99) mg/dL POC Glucose (mg/dL) 324 H 309 H 219 H (70-110) mg/dL Cortisol (3.1-22.4) UG/DL 01/24/24 01/24/24 Range/Units 06:19 06:19 RBC 4.15 L (4.30-5.90) m/uL RDW 16.5 H (11.5-15.5) % Plt Count 456 H (150-450) k/uL Neutrophils # 7.9 H (1.3-7.7) k/uL Lymphocytes # 0.4 L (1.0-4.8) k/uL Sodium 123 L (137-145) mmol/L Chloride 93 L (98-107) mmol/L BUN 35 H (9-20) mg/dL Glucose 230 H (74-99) mg/dL POC Glucose (mg/dL) (70-110) mg/dL Cortisol (3.1-22.4) UG/DL Assessment and Plan Plan: Assessment: 1. Hyponatremia. 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 Cere bral salt wasting less likely as patient does not appear hypovolemic. Sodium level 124 this morning. It has been in the range of 124-128 since November 2023. Patient received IV fluids and sodium did improve from 122-125 but then dropped to 124. Urine sodium 147 and urine osmolality 529. These were drawn after the patient had received IV fluids. TSH elevated at 10.3 but free T4 is normal. Co rtisol level low at 2.6. Patient is on Decadron. Fludrocortisone was also added yesterday. Case was discussed with primary team as well as neurology. 2. 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 Maintained on chemotherapy and radiation. Vasogenic edema in the right occipital and parietal lobes noted on brain CT reflective of metastatic disease. Neurology and oncology following. 3. Diabetes mellitus. 4. Hypomagnesemia from poor intake and diuresis. Replaced. Plan: Maintain fluid restriction. Maintain sodium chloride tabs. Repeat Samsca today. Repeat labs in the morning.
[2024-01-24 11:38] LABS: Glucose,Whole Blood 293 mg/dL (70-110)
[2024-01-24] MEDS: dexAMETHasone 2 MG TAB PO SCH (11:42)
[2024-01-24] MEDS: TOLVAPTAN 15 MG TABLET PO ONE (11:43)
--- NOTE | 2024-01-24 12:12 | CT ---
EXAMINATION TYPE: CT abdomen pelvis w con DATE OF EXAM: 01/24/2024 10:51 AM COMPARISON: 09/21/2023 CLINICAL INDICATION: Male, 63 years old with history of metastatic dz evaluation, Hx of tongue, neck, and lung Ca. r/o mets to abdominal region TECHNIQUE: Axial images were obtained from above the diaphragm to the pubic rami in the axial plane a t 5 mm thick sections. Reconstructed images are reviewed on the computer in the coronal plane. CONTRAST: 100 mL of Isovue 300. Study performed without Oral Contrast DLP: 868.1 mGycm, Automated exposure control for dose reduction was used. FINDINGS: Limited CT sections are obtained the lung bases. There is a minimal left pleural effusion. Some bo cent infiltrate is present. Drainage catheter is at the left base.. Minimal right pleural effusion i s present. CT ABDOMEN: Liver: Normal Spleen: Normal Pancreas: Normal Adrenal glands: The adrenal glands are normal. Gallbladder: Normal Kidneys: No masses are evident. There is some very subtle 1.1 cm hypodensity within the posterior lef t mid kidney, example series 301 image 35. No hydronephrosis is present. No cysts are present. Del ayed images were obtained through the kidneys, which remain unremarkable. Abnormality not easily iden tified within the posterior cortex on the delayed images. Aorta: Vascular calcification is within the aorta. Inferior vena cava: Infiltrate is within the inferior vena cava. Tip is near the level of the renal v eins. CT PELVIS: Some minimal free fluid is within the pelvis. There are some small bowel loops containing fluid within the inferior pelvis. These are slightly prom inent. Correlate for ileus. Air and fecal debris is within the colon. This study is without oral cont rast limiting bowel evaluation. Appendix: Normal as visualized. Urinary bladder: Mild diffuse urinary bladder wall thickening is present. Genitourinary structures: Prostate appears slightly prominent Osseous structures: No suspicious lytic or sclerotic lesions. Degenerative disc changes present in th e lower lumbar spine. No suspicious lymphadenopathy is evident. Small retrocrural lymph nodes are present. No periaortic or retrocaval adenopathy. No iliac chain adenopathy. IMPRESSION: 1. Mild free fluid within the pelvis abnormal in a male. 2. Subtle 1.1 hypodensity within the posterior left kidney. Additional evaluation with ultrasound rec ommended. 3. Mild fluid-filled prominence of small bowel loops. Correlate for ileus. 4. Small bilateral pleural effusions. [facility], Workstation: [facility], 01/24/2024 12:09 PM
[2024-01-24 12:36] VITALS: BMI 23.6
--- NOTE | 2024-01-24 13:08 | P.PN ---
Subjective Progress Note Date: 01/24/24 Patient mentation continues to improve. LLE weakness also improving. Per staff patient has been crying and more emotional. At todays visit pt stated he has been crying regarding his health and cancer diagnosis, and there seemed to be confusion when code status was addressed he thought hospice was recommended. We further discussed this and clarified with patient, that at this time, no decision on comfort care measures would need to be made, but rather to focus on his current acute symptoms and recovery and that goals of care/tx options can be further discussed outpt with his primary oncologist, Dr. Roblero. Objective - Vital Signs Vital signs: Vital Signs Temp 96.6 F L 01/24/24 08:02 Pulse 79 01/24/24 11:25 Resp 16 01/24/24 11:25 BP 140/89 01/24/24 11:25 Pulse Ox 99 01/24/24 11:25 FiO2 40 01/20/24 08:16 Intake & Output 01/23/24 01/24/24 01/24/24 18:59 06:59 18:59 Intake Total 450 120 148 Output Total 590 300 Balance -140 -180 148 Weight 72.5 kg 72.5 kg Intake: IV 30 Invasive Line 1 10 Invasive Line 2 10 Invasive Line 3 10 Intake, IV Titration 200 Amount Magnesium Sulfate-D5w Pmx 200 1 gm In Dextrose/Water 1 100ml.bag @ 100 mls/hr IVPB Q1H [facility] Rx#: [id number] Sodium Chloride 3%( 0 Hypertonic) 500 ml @ 30 mls/hr IV .[id number] ONE Rx #:[id number] Oral 250 120 118 Output: Chest Tube Drainage 40 Pleural Catheter 40 Urine 550 300 Stool 0 Other: Voiding Method External Catheter External Catheter External Catheter # Voids 1 # Bowel Movements 0 - Constitutional General appearance: Present: average body habitus, no acute distress - EENT Eyes: Present: anicteric sclerae, EOMI ENT: Present: hearing grossly normal - Respiratory Details: breathing is even and unlabored - Cardiovascular Details: well perfused - Musculoskeletal Musculoskeletal Comment(s): RLE 4/5, LLE 3/5 Musculoskeletal: Present: left sided weakness - Psychiatric Psychiatric: Present: A&O x's 3 - Labs CBC & Chem 7: 01/24/24 06:19 01/24/24 06:19 Labs: Abnormal Lab Results - Last 24 Hours (Table) 01/23/24 01/23/24 01/23/24 Range/Units 13:54 15:25 16:37 RBC (4.30-5.90) m/uL RDW (11.5-15.5) % Plt Count (150-450) k/uL Neutrophils # (1.3-7.7) k/uL Lymphocytes # (1.0-4.8) k/uL Sodium 121 L (137-145) mmol/L Chloride (98-107) mmol/L BUN (9-20) mg/dL Glucose (74-99) mg/dL POC Glucose (mg/dL) 439 H 304 H (70-110) mg/dL 01/23/24 01/23/24 01/23/24 Range/Units 19:51 19:52 20:33 RBC (4.30-5.90) m/uL RDW (11.5-15.5) % Plt Count (150-450) k/uL Neutrophils # (1.3-7.7) k/uL Lymphocytes # (1.0-4.8) k/uL Sodium 123 L (137-145) mmol/L Chloride (98-107) mmol/L BUN (9-20) mg/dL Glucose (74-99) mg/dL POC Glucose (mg/dL) 324 H 309 H (70-110) mg/dL 01/24/24 01/24/24 01/24/24 Range/Units 05:52 06:19 06:19 RBC 4.15 L (4.30-5.90) m/uL RDW 16.5 H (11.5-15.5) % Plt Count 456 H (150-450) k/uL Neutrophils # 7.9 H (1.3-7.7) k/uL Lymphocytes # 0.4 L (1.0-4.8) k/uL Sodium 123 L (137-145) mmol/L Chloride 93 L (98-107) mmol/L BUN 35 H (9-20) mg/dL Glucose 230 H (74-99) mg/dL POC Glucose (mg/dL) 219 H (70-110) mg/dL 01/24/24 Range/Units 11:37 RBC (4.30-5.90) m/uL RDW (11.5-15.5) % Plt Count (150-450) k/uL Neutrophils # (1.3-7.7) k/uL Lymphocytes # (1.0-4.8) k/uL Sodium (137-145) mmol/L Chloride (98-107) mmol/L BUN (9-20) mg/dL Glucose (74-99) mg/dL POC Glucose (mg/dL) 293 H (70-110) mg/dL Assessment and Plan (1) Left hemiparesis Current Visit: Yes Status: Acute Code(s): G81.94 - HEMIPLEGIA, UNSPECIFIED AFFECTING LEFT NONDOMINANT SIDE SNOMED Code(s): 455075020 (2) Metastasis to brain Current Visit: Yes Status: Acute Priority: High Code(s): C79.31 - SECONDARY MALIGNANT NEOPLASM OF BRAIN SNOMED Code(s): 05092971 (3) Squamous cell lung cancer Current Visit: Yes Status: Acute Priority: High Code(s): C34.90 - MALIGNANT NEOPLASM OF UNSP PART OF UNSP BRONCHUS OR LUNG SNOMED Code(s): 444219377 (4) Hyponatremia Current Visit: Yes Status: Acute Priority: High Code(s): E87.1 - HYPO- OSMOLALITY AND HYPONATREMIA SNOMED Code(s): 16349243 Plan: Left hemiparesis: The patient presented with new onset of the same. Differentials included new CVA, versus rebound vasogenic edema postradiation with postseizure Anuj's paralysis also considered a possibility. -The CT report had mentioned the possibility of progression of the brain mass, although the measured size was in the same range. Case was extensively discussed with the ER physician, [facility], and radiation oncology. The degree of midline shift was mild. It was subsequently determined by neurology that the left leg abnormality was actually chronic and stable. Radiation oncology reviewed his scans remotely, and determined that the size of the mass was stable or slightly less. -The patient was therefore placed back on higher dose of IV steroids to treat any component of rebound edema. He was admitted to the ICU, and is being followed by CCM, and neurology. -Repeat CT brain on 01/20 showing similar extensive vasogenic edema in the right occipital and parietal lobes. Possible slight increase in leftward midline shift -Brain MRI showing right parietal/occipital enhancing complex mass with vasogenic edema effacing the right lateral ventricle, now demonstrating some cystic components around the periphery. No CVA or new pathology noted -Continues on decadron 6mg q6hrs, with improvement in mentation. Will plan to transition to PO decadron over the next cpl days, and taper dosing in the outpt setting -PT/OT consulted Hyponatremia: -Possibly r/t SIADH from malignancy -Nephrology following -Continues PO sodium supplementation -Sodium 123 today Squamous cell lung cancer: The patient has had 1 cycle of systemic therapy. Treatment has been on hold due to various factors, as described in the HPI. This will be resumed once his acute problems are appropriately controlled and pt regains strength. Clinic f/u will be scheduled upon discharge to further discuss goals of care Doctor attests: I performed a history and physical examination of this patient, developed impression and plan of care. Discussed with dictator. I agree with dictators note, documented as a scribe.
--- NOTE | 2024-01-24 13:33 | P.PN ---
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 Subsequently, he was lost to follow-up and he presented back to us with a large left upper lobe mass and I performed bronchoscopy on this patient back in August 2023 and the findings were consistent with squamous cell carcinoma. The PET scan from September 2023 showed left upper lobe mass, PET avid in addition to metastatic activity involving the mediastinum and the right supraclavicular and bilateral lymph node lymphadenopathy in addition to left inferior pleural space FDG uptake and metastatic mediastinal lymphadenopathy. The patient was started on systemic treatment including a combination of carboplatinum, Alimta and Keytruda. While taking his second cycle of treatment, on 12/15/2023, the patient was noted to being have increased shortness of breath. He was sent to the emergency department and a CT angiogram of the chest was done and the patient was found to have small segmental branch pulmonary embolism involving the right lower lobe. Minimal overall clot burden. There was new moderate to large left-sided effusion along with atelectatic collapse of the left lower lobe. New moderate right-sided pleural effusion with adjacent atelectasis. There was also pleural nodularity in the posterior left upper lobe, additional disease progression with new pericardial lymphadenopathy measuring up to 2.1 cm in size and there was also a large left upper lobe mass encasing the left hilum that was measuring 11.9 cm in size with metastatic mediastinal and hilar l ymphadenopathy and the patient had shown some partial response as the patient was receiving systemic chemotherapy. The echocardiogram that was done at that time on 12/15/2023 showed preserved LV function, normal RV size and function. Venous Doppler of the lower extremity that was done on 12/16/2023 showed no evidence of any DVT. Noted, the patient had a Pleurx catheter insertion on 12/19/2023 into the left pleural space and the fluid cytology was essentially negative for carcinoma or malignancy. The patient was discharged home and anticoagulation with Eliquis. Readmitted to the hospital on 12/28/2023 with altered mentation. The patient had unresponsiveness and new onset seizures. MRI of the brain was done and the patient was found to have right parietal/occipital mass with vasogenic edema. The patient was started on Keppra and Decadron. Anticoagulation was stopped and the patient was given an IVC filter on 01/02/2024 and the patient was discharged home on 01/03/2024 and he was advised to continue Decadron 4 mg p.o. 3 times daily and Keppra 750 mg p.o. twice daily. The patient was also seen by radiation oncology. Received SBRT to his brain, a total of 3 sessions earlier this week. The patient came into the emergency department today with strokelike symptoms and left-sided weakness. The patient also had altered mentation. His last known normal was unclear but this was sometime yesterday night. The patient was experiencing left-sided weakness, facial droop and dysarthria. He also had developed a dilated left pupil which was noted few weeks back. CT scan of the brain was done in Emergency Department and the patient was found to have a 2 point centimeter lesion that had been enlarging compared to the previous CAT scan of the brain that was done on 12/28/2023. The patient had hyperdense right occipital lobe 2.1 cm lesion with increasing surrounding vasogenic edema and a 3 mm left shift from midline. The CTA of the brain was also done and it showed no evidence of dissection of the cervical or internal carotid arteries or vertebral arteries. No evidence of any high-grade stenosis intracranially. There was a enhancing right occipital lobe mass with surrounding vasogenic edema. In the emergency, the patient had also 2 episodes of seizures. The case was discussed with outside facilities regarding transfer and was found that there was no indication for this medical transfer. The patient was started on Decadron 6 mg IV every 6 hours and the patient was kept on Keppra 750 mg IV every 12 hours. He was admitted to the intensive care unit for further management. He seems to be quite obtunded at this point in time. Blood gas was also done in the ICU and the patient was found to have a pH of 7.16 with a pCO2 of 85 and a pO2 of 70 and this was done by the patient being in 60s of oxygen by nasal cannula. Accordingly, the patient was placed on a BiPAP. Chest x-ray has not been done yet. The white cell count is 11.5 with a hemoglobin 12.7 and platelet count of 488. BUN 25 L and 0.6 and a sodium levels at 128. Blood sugar is at 454. Norm al UA. Urine drug screen is positive for marijuana and opiates. 01/20/2024, the patient is much more awake compared to yesterday. The patient is unable to move his left upper and left lower extremity. He is able to wiggle his toes and his fingers on the left. Mental status is improved. No further seizure activity has been noted. The patient remains on a combination of Keppra and Decadron. Keppra is 500 mg IV every 12 hours and the patient is also on Decadron at 6 mg IV every 6 hours. The patient was further taken off the BiPAP. He is currently on 2 L of oxygen by nasal cannula. Pulse ox is 98%. Morning blood work shows a WBC count of 8.9, hemoglobin 10.9 and platelet count of 378. BUN is 19 with a creatinine of 0.49 and a sodium levels at 133. He does have a Pleurx catheter in his left chest and a total of 100 cc of pleural fluid was evacuated this morning. The follow-up chest x-ray shows some limited improvement in aeration of the left lung base. . On today's evaluation of 01/21/2024, the patient is free of any seizures. He has not had any seizures over the past 24 hours. Remains on Keppra. Remains on Decadron. He is a bit confused and delirious. Trying to get out of bed. He has a sitter at the bedside. Left side remains weak although there is some li mited improving motor function left upper extremity on today's evaluation. The patient has no signs of any respiratory distress. The white cell count is at 9.1 with a hemoglobin 11.7 and a platelet count of 447. BUN is 23 with a creatinine of 0.6. Sodium level is at 126. The patient is drinking liquids. No other significant events overnight. He remains on Levemir insulin 8 units twice daily and sliding scale insulin coverage. Patient evaluated today on 01/22/2024, patient seems to be very comfortable, not in any distress, he is on few liters nasal cannula, and intermittently on BiPAP 01/24/40%, he was just started on 3% saline for his hyponatremia with a sodium of 123, patient also is on Decadron at 6 mg IV push every 6 hours for his brain metastasis. His last seizure was 01/18, patient has metastatic head and neck cancer with metastasis to the lungs and to the brain. He also has a left Pleurx catheter in place for recurrent left-sided pleural effusion CT of the brain showed right occipital mass which seems to be quite large. Patient is being followed by nephrology as well as by hematology/oncology. Receiving chemotherapy as well as immunotherapy. Pulmonary turk he does not seem to be in distress, seems to be fairly comfortable, he does have left-sided paralysis WBC count is 6.6 hemoglobin 12.3 sodium is 123 potassium 4.6. Renal profile is normal Patient was evaluated today on 01/23/2024, remains in the ICU, however the patient has had no seizures in the last few days. Being followed by many consultants including oncology and radiation oncology patient seems to be doing fairly well, does not seem to be in any distress. He is on room air, sodium remains low at 124, being addressed by nephrology. Patient had no seizure activity. And he seems to have chronic hyponatremia. 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 Due blood sugar today is 439, hence his true sodium is actually slightly in the 129 range Seen today on 01/24/2024, patient is now on medical floor, not in the ICU, no major events over the last 24 hours, and no seizures. Patient is on room air, comfortable, not in any distress, O2 saturation is 99% on room air, patient is hemodynamically stable WBC count is 8.9 hemoglobin 13.4 sodium remains low at 123 blood sugar is 230 Objective - Vital Signs Vital signs: Vital Signs Temp 96.6 F L 01/24/24 08:02 Pulse 79 01/24/24 11:25 Resp 16 01/24/24 11:25 BP 140/89 01/24/24 11:25 Pulse Ox 99 01/24/24 11:25 FiO2 40 01/20/24 08:16 Intake & Output 01/23/24 01/24/24 01/24/24 18:59 06:59 18:59 Intake Total 450 120 148 Output Total 590 300 Balance -140 -180 148 Weight 72.5 kg 72.5 kg Intake: IV 30 Invasive Line 1 10 Invasive Line 2 10 Invasive Line 3 10 Intake, IV Titration 200 Amount Magnesium Sulfate-D5w Pmx 200 1 gm In Dextrose/Water 1 100ml.bag @ 100 mls/hr IVPB Q1H [facility] Rx#: [id number] Sodium Chloride 3%( 0 Hypertonic) 500 ml @ 30 mls/hr IV .[id number] ONE Rx #:[id number] Oral 250 120 118 Output: Chest Tube Drainage 40 Pleural Catheter 40 Urine 550 300 Stool 0 Other: Voiding Method External Catheter External Catheter External Catheter # Voids 1 # Bowel Movements 0 - Exam GENERAL EXAM: Revealed a 63-year-old white male in no distress HEAD: Normocephalic. EYES: Dilated left pupil NOSE: Clear with pink turbinates. THROAT: No erythema or exudates. NECK: No masses, no JVD. CHEST: No chest wall deformity. LUNGS: Equal air entry with bibasilar crackles, left greater than right, diminished left lung base. CVS: S1 and S2 normal with no audible murmur, regular rhythm. ABDOMEN: No hepatosplenomegaly, normal bowel sounds, no guarding or rigidity. SKIN: No rashes CENTRAL NERVOUS SYSTEM: Left-sided weakness, dilated left pupil, free of any seizures. . Awake and alert and communicating. Left-sided paralysis is unchanged. less confused today compared to yesterday EXTREMITIES: There is no peripheral edema. No clubbing, no cyanosis. Peripheral pulses are intact. - Labs CBC & Chem 7: 01/24/24 06:19 01/24/24 06:19 Labs: Abnormal Lab Results - Last 24 Hours (Table) 01/23/24 01/23/24 01/23/24 Range/Units 13:54 15:25 16:37 RBC (4.30-5.90) m/uL RDW (11.5-15.5) % Plt Count (150-450) k/uL Neutrophils # (1.3-7.7) k/uL Lymphocytes # (1.0-4.8) k/uL Sodium 121 L (137-145) mmol/L Chloride (98-107) mmol/L BUN (9-20) mg/dL Glucose (74-99) mg/dL POC Glucose (mg/dL) 439 H 304 H (70-110) mg/dL 01/23/24 01/23/24 01/23/24 Range/Units 19:51 19:52 20:33 RBC (4.30-5.90) m/uL RDW (11.5-15.5) % Plt Count (150-450) k/uL Neutrophils # (1.3-7.7) k/uL Lymphocytes # (1.0-4.8) k/uL Sodium 123 L (137-145) mmol/L Chloride (98-107) mmol/L BUN (9-20) mg/dL Glucose (74-99) mg/dL POC Glucose (mg/dL) 324 H 309 H (70-110) mg/dL 01/24/24 01/24/24 01/24/24 Range/Units 05:52 06:19 06:19 RBC 4.15 L (4.30-5.90) m/uL RDW 16.5 H (11.5-15.5) % Plt Count 456 H (150-450) k/uL Neutrophils # 7.9 H (1.3-7.7) k/uL Lymphocytes # 0.4 L (1.0-4.8) k/uL Sodium 123 L (137-145) mmol/L Chloride 93 L (98-107) mmol/L BUN 35 H (9-20) mg/dL Glucose 230 H (74-99) mg/dL POC Glucose (mg/dL) 219 H (70-110) mg/dL 01/24/24 Range/Units 11:37 RBC (4.30-5.90) m/uL RDW (11.5-15.5) % Plt Count (150-450) k/uL Neutrophils # (1.3-7.7) k/uL Lymphocytes # (1.0-4.8) k/uL Sodium (137-145) mmol/L Chloride (98-107) mmol/L BUN (9-20) mg/dL Glucose (74-99) mg/dL POC Glucose (mg/dL) 293 H (70-110) mg/dL Assessment and Plan Assessment: Pression: Seizures, likely a manifestation of SALES COORDINATOR metastases, maintained on Keppra on outpatient basis. The patient also has an enlarging right occipital brain lesion measuring 2.1 cm in size with surrounding edema and 3 mm leftward midline shift. The patient is currently on a combination of Decadron and Keppra. Neurology on the case. Continues to have paralysis of the left upper and left lower extremity. Delirium/confusion, multifactorial. Acute hypoxic/hypercapnic respiratory failure, currently off the BiPAP and patient is on room air oxygen Metastatic SALES COORDINATOR lesion, right occipital, currently on Decadron, status post SBRT Left-sided weakness, rule out Anuj's paralysis following seizure. Rule out mo tor deficits related to metastatic brain lesion and vasogenic edema, clinically unchanged Metastatic squamous cell carcinoma of the lung versus metastatic from head and neck/tongue cancer from 2021, initiated on a combination of carboplatin Alimta and Keytruda on 12/06/2023 and the patient received only 1 cycle. History of tongue cancer Left upper lobe mass measuring 12 cm in size with extensive mediastinal lymphadenopathy consistent with metastatic disease Pulmonary embolism, small segmental, status post IVC filter placement History of Pleurx catheter insertion for a left-sided pleural effusion, pleural fluid cytology has been negative for malignancy, left lung is quite opacified due to a left upper lobe tumor, atelectasis and a left-sided pleural effusion. Diabetes mellitus with steroid-induced hyperglycemia Hypothyroidism Recommendation: Continue seizure medications Continue to intermittently drain the Pleurx catheter/left-sided pleural effusion Continue Decadron Continue Seroquel Continue insulin Close monitoring for recurrent seizures patient is now on Keppra Continue IVC filter for his previous history of pulmonary embolism patient cannot have anticoagulation therapy because of his SALES COORDINATOR metastasis Continue IV Protonix Continue to monitor sodium Patient is being seen by radiation oncology and medical oncology. Patient to be considered for discharge planning if cleared by other consultants. Will continue to follow Time with Patient: Less than 30
[2024-01-24 16:21] LABS: Glucose,Whole Blood 218 mg/dL (70-110)
--- NOTE | 2024-01-24 16:49 | P.PN ---
Subjective Progress Note Date: 01/24/24 I am following-up with patient and he feels he is doing better. Objective - Vital Signs Vital signs: Vital Signs Temp 97.6 F 01/24/24 16:01 Pulse 78 01/24/24 16:01 Resp 16 01/24/24 16:01 BP 126/78 01/24/24 16:01 Pulse Ox 96 01/24/24 16:01 FiO2 40 01/20/24 08:16 Intake & Output 01/23/24 01/24/24 01/24/24 18:59 06:59 18:59 Intake Total 450 120 400 Output Total 590 300 Balance -140 -180 400 Weight 72.5 kg 72.5 kg Intake: IV 60 Invasive Line 1 20 Invasive Line 2 20 Invasive Line 3 20 Intake, IV Titration 200 Amount Magnesium Sulfate-D5w Pmx 200 1 gm In Dextrose/Water 1 100ml.bag @ 100 mls/hr IVPB Q1H [facility] Rx#: [id number] Sodium Chloride 3%( 0 Hypertonic) 500 ml @ 30 mls/hr IV .[id number] ONE Rx #:[id number] Oral 250 120 340 Output: Chest Tube Drainage 40 Pleural Catheter 40 Urine 550 300 Stool 0 Other: Voiding Method External Catheter External Catheter External Catheter # Voids 1 1 # Bowel Movements 0 - Exam General: Lying in bed and is not in acute distress Neuro: Patient is mildly drowsy but is awake both voice. He is oriented to self place and time. Is following simple commands. No aphasia. No facial weakness. No dysarthria. Motor is hard to assess individual muscle strength because of his cooperation but was able to lift up bilateral upper extremity above gravity. - Labs CBC & Chem 7: 01/24/24 06:19 01/24/24 06:19 Labs: Abnormal Lab Results - Last 24 Hours (Table) 01/23/24 01/23/24 01/23/24 Range/Units 19:51 19:52 20:33 RBC (4.30-5.90) m/uL RDW (11.5-15.5) % Plt Count (150-450) k/uL Neutrophils # (1.3-7.7) k/uL Lymphocytes # (1.0-4.8) k/uL Sodium 123 L (137-145) mmol/L Chloride (98-107) mmol/L BUN (9-20) mg/dL Glucose (74-99) mg/dL POC Glucose (mg/dL) 324 H 309 H (70-110) mg/dL 01/24/24 01/24/24 01/24/24 Range/Units 05:52 06:19 06:19 RBC 4.15 L (4.30-5.90) m/uL RDW 16.5 H (11.5-15.5) % Plt Count 456 H (150-450) k/uL Neutrophils # 7.9 H (1.3-7.7) k/uL Lymphocytes # 0.4 L (1.0-4.8) k/uL Sodium 123 L (137-145) mmol/L Chloride 93 L (98-107) mmol/L BUN 35 H (9-20) mg/dL Glucose 230 H (74-99) mg/dL POC Glucose (mg/dL) 219 H (70-110) mg/dL 01/24/24 01/24/24 Range/Units 11:37 16:19 RBC (4.30-5.90) m/uL RDW (11.5-15.5) % Plt Count (150-450) k/uL Neutrophils # (1.3-7.7) k/uL Lymphocytes # (1.0-4.8) k/uL Sodium (137-145) mmol/L Chloride (98-107) mmol/L BUN (9-20) mg/dL Glucose (74-99) mg/dL POC Glucose (mg/dL) 293 H 218 H (70-110) mg/dL Assessment and Plan Assessment: Mr. 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 He had been recently decreased out his dexamethasone and has had increasing edema. He has now flaccid on his left arm and exhibits increased weakness on his left side with a left homonymous hemianopia. This is likely due to the increased edema surrounding his mass. Brain metastasis over the right occipital with significant vasogenic edema (worse edema compared to prior MRI about a month ago). Patient has left h omonymous hemianopsia, chronic dilated left pupils, neglecting the left side. 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 Plan: Patient is on dexamethasone 6 mg every 6 hours. If patient symptoms do not improve recommend to change it to 6 mg every 4 hours. MRI of the brain w/: Right parietal/occipital enhancing complex mass with vasogenic edema effacing the right lateral ventricle. This mass now demonstrates some cystic component around the periphery which is totality is larger compared to the prior where there is no significant cystic component on 12/29/2023. Patient is on salt tablet a per nephrology recommendation Is on Keppra 750 mg twice daily and it seems it was started as a prophylaxis. Oncology is on board. Defer the rest of the medical management to primary and other specialist Plan discussed with the primary team. Time with Patient: Less than 30
[2024-01-24 17:34] LABS: Glucose,Whole Blood 321 mg/dL (70-110)
[2024-01-24 19:58] LABS: Glucose,Whole Blood 403 mg/dL (70-110)
[2024-01-24] MEDS: MELATONIN 3 MG TABLET PO SCH (20:58)
[2024-01-24 21:49] LABS: Glucose,Whole Blood 427 mg/dL (70-110)
[2024-01-25 06:13] LABS: Glucose,Whole Blood 460 mg/dL (70-110)
[2024-01-25] MEDS: INSULIN DETEMIR (LEVEMIR) 100 UNIT/ML SYR SQ SCH (06:18)
[2024-01-25] MEDS: INSULIN ASPART (NovoLOG) 100 UNIT/ML VIAL SQ SCH (06:18)
[2024-01-25] MEDS: PANTOPRAZOLE 40 MG TABLET PO SCH (06:22)
[2024-01-25 08:25] LABS: Anisocytosis Slight; Basophils % (A) 0 %; Eosinophils % (A) 0 %; HCT 40.2 % (39.0-53.0); HGB 12.9 gm/dL (13.0-17.5); Lymphocytes # (A) 0.3 k/uL (1.0-4.8); Lymphocytes % (A) 3 %; MCH 32.2 pg (25.0-35.0); MCV 100.6 fL (80.0-100.0); Macrocytosis Slight; Mean Platelet Volume 8.1; Monocytes # (A) 0.4 k/uL (0-1.0); Monocytes % (A) 5 %; Neutrophils # (A) 7.5 k/uL (1.3-7.7); Neutrophils % (A) 91 %; Platelet Count 261 k/uL (150-450); RDW 16.5 % (11.5-15.5); WBC 8.2 k/uL (3.8-10.6)
[2024-01-25 08:37] LABS: African American GFR (CKD) >90 (>60 ml/min/1.73 sqM); Anion Gap 6 mmol/L; Blood Urea Nitrogen 33 mg/dL (9-20); Calcium 8.6 mg/dL (8.4-10.2); Carbon Dioxide 26 mmol/L (22-30); Chloride 93 mmol/L (98-107); Glucose 361 mg/dL (74-99); Magnesium 1.7 mg/dL (1.6-2.3); Non-African American GFR(CKD) >90 (>60 ml/min/1.73 sqM); Potassium 4.3 mmol/L (3.5-5.1); Sodium 125 mmol/L (137-145)
[2024-01-25] MEDS: INSULIN DETEMIR (LEVEMIR) 100 UNIT/ML SYR SQ ONE (09:49)
--- NOTE | 2024-01-25 10:09 | P.PN ---
Subjective Progress Note Date: 01/25/24 Principal diagnosis: Patient is a 63-year-old male with 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 Known left-sided weakness with left pupil dilatation. CT of the brain demonstrated 2.1 cm lesion enlarging from prior with worsening vasogenic edema and left midline shift. Had 1 seizure with EMS. Initial vital signs were remarkable for tachycardia with heart rate of 102 and blood pressure of 184/117. Initial laboratory analysis was remarkable for white blood cell count 11.5, hemoglobin 12.7, platelets 488, sodium 128. At that time ABG showed a pH of 7.16 with a pCO2 of 85. Additionally patient underwent CTA of the head and neck which showed no significant stenosis. Chest x-ray showed increasing inte rstitial density concerning for pulmonary vascular congestion with ongoing volume loss and extensive pleural opacity throughout the left hemithorax with left basilar Pleurx catheter in place. Patient was admitted to the ICU with breakthrough seizure. Patient had 1 seizure with EMS and 2 seizures in the emergency department the second requiring the use of Ativan to abort the seizure. Neurology and critical care were consulted. Consideration was made for transfer but it was found that there is no indication for medical transfer. Patient was started on Decadron 6 mg IV every 6 hours and Keppra 750 mg IV every 12 hours. Was started on BiPAP due to the ABG results which was weaned off by 01/19, was briefly on an insulin gtt. sodium noted to be downtrending. was placed on hypertonic briefly however transitioned to salt tablets/fluid restriction. Na level had remained stable in the lower 120s. I had d/w patient's regarding code status yesterday evening. Today the patient is sitting in his chair. He expresses he has not eaten much breakfast however it appears he had eaten a majority of his breakfast. Objective - Vital Signs Vital signs: Vital Signs Temp 97.4 F L 01/25/24 09:30 Pulse 91 01/25/24 09:30 Resp 16 01/25/24 09:30 BP 116/78 01/25/24 09:30 Pulse Ox 91 L 01/25/24 09:30 FiO2 40 01/20/24 08:16 Intake & Output 01/24/24 01/25/24 01/25/24 18:59 06:59 18:59 Intake Total 400 300 148 Output Total 300 800 Balance 400 0 -652 Weight 72.5 kg 74.5 kg Intake: IV 60 60 30 Invasive Line 1 20 20 10 Invasive Line 2 20 20 10 Invasive Line 3 20 20 10 Oral 340 240 118 Output: Urine 300 800 Stool 0 Other: Voiding Method External Catheter External Catheter External Catheter # Voids 1 - Exam General: non toxic, no distress, male appears stated age, male. sittin in chair. Derm: warm, dry Head: atraumatic, normocephalic, symmetric Eyes: EOMI, no lid lag, anicteric sclera, pupils equal round reactive to light ENT: Nose and ears atraumatic, no thrush, no pharyngeal erythema Neck: No thyromegaly, no cervical lymphadenopathy, trachea midline, supple Mouth: no lip lesion, mucus membranes moist Cardiovascular: S1S2 reg, no murmur, positive posterior tibial pulse bilateral, no edema, capillary refill less than 2 seconds Lungs: clear to ascultation bilateral. there is a pleurex catheter on left anterior chest wall. Abdominal: soft, nontender to palpation, no guarding, no appreciable organomegaly, normal bowel sounds Ext: no ble edema Neuro: LUE and LLE motor strength 3/5+. RUE and RLE motor strength 5/5. gait not tested Psych: Alert, oriented, appropriate affect - Labs CBC & Chem 7: 01/25/24 07:38 01/25/24 07:38 Labs: Abnormal Lab Results - Last 24 Hours (Table) 01/24/24 01/24/24 01/24/24 Range/Units 11:37 16:19 17:33 RBC (4.30-5.90) m/uL Hgb (13.0-17.5) gm/dL MCV (80.0-100.0) fL RDW (11.5-15.5) % Lymphocytes # (1.0-4.8) k/uL Sodium (137-145) mmol/L Chloride (98-107) mmol/L BUN (9-20) mg/dL Glucose (74-99) mg/dL POC Glucose (mg/dL) 293 H 218 H 321 H (70-110) mg/dL 01/24/24 01/24/24 01/25/24 Range/Units 19:56 21:48 06:12 RBC (4.30-5.90) m/uL Hgb (13.0-17.5) gm/dL MCV (80.0-100.0) fL RDW (11.5-15.5) % Lymphocytes # (1.0-4.8) k/uL Sodium (137-145) mmol/L Chloride (98-107) mmol/L BUN (9-20) mg/dL Glucose (74-99) mg/dL POC Glucose (mg/dL) 403 H 427 H 460 H (70-110) mg/dL 01/25/24 01/25/24 Range/Units 07:38 07:38 RBC 4.00 L (4.30-5.90) m/uL Hgb 12.9 L (13.0-17.5) gm/dL MCV 100.6 H (80.0-100.0) fL RDW 16.5 H (11.5-15.5) % Lymphocytes # 0.3 L (1.0-4.8) k/uL Sodium 125 L (137-145) mmol/L Chloride 93 L (98-107) mmol/L BUN 33 H (9-20) mg/dL Glucose 361 H (74-99) mg/dL POC Glucose (mg/dL) (70-110) mg/dL Assessment and Plan Assessment: #) Breakthrough seizure. This is likely 2/2 to right pareital occiptal brain mass with vasogenic edema effacing the right lateral ventricle. Continue PO keppra 750 mg BID as antiepileptic. Will d/w neurology about switching over to PO keppra. seizure precautions. no driving for 6 months. Continue dexamethasone 6 mg q6hr for vasogenic edema. 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 ?metastatic from left tongue. #) Hyponatremia - SIADH vs. less likely cerebral salt wasting. Continue fluid restriction at 1500 cc daily. Previously on 3% on 01/21. I would anticipate na level is going to be stable around the lower 120 range. continue fludorocrtisone 0.1 mg BID however would can consider d/cing soon. #) Eurthyroid sick syndrome- continue tsh in 4-6 weeks outpatient. Continue home levothryoxine 176 mgcg daily #) Dm2 with steroid induced hyperglycemia. a1c of 8.2%. increase levemir to 20 units daily continue sliding scale insulin. #) Anemia, likely multifactorial, continue to monitor hgb daily #) Acute hypercapnic respiratory failure, resolved #) advanced care planning- code status changed from full code to DNR, ok for intubation/mechanical ventilation. agreeable on 01/23 evening DVT Ppx: SCds. s/p ivc filter. hold pharmacological dvt ppx for now given brain mets Anticipate discharge date: I would anticipate sufficiently medically acceptable for SNF placement in [address]: SNF Time with Patient: Greater than 30
--- NOTE | 2024-01-25 10:51 | P.PN ---
Subjective Patient is seen in follow-up for hyponatremia. Received Samsca yesterday. Sodium level 125 this morning. Blood glucose 360. Resting in bed. Vital signs are stable. General: No acute distress. HEENT: Head exam is unremarkable. LUNGS: No audible rhonchi or wheezes. HEART: Rate and Rhythm are regular. ABDOMEN: Nontender. EXTREMITITES: Trace edema. Objective - Vital Signs Vital signs: Vital Signs Temp 97.4 F L 01/25/24 09:30 Pulse 91 01/25/24 09:30 Resp 16 01/25/24 09:30 BP 116/78 01/25/24 09:30 Pulse Ox 91 L 01/25/24 09:30 FiO2 40 01/20/24 08:16 Intake & Output 01/24/24 01/25/24 01/25/24 18:59 06:59 18:59 Intake Total 400 300 148 Output Total 300 800 Balance 400 0 -652 Weight 72.5 kg 74.5 kg Intake: IV 60 60 30 Invasive Line 1 20 20 10 Invasive Line 2 20 20 10 Invasive Line 3 20 20 10 Oral 340 240 118 Output: Urine 300 800 Stool 0 Other: Voiding Method External Catheter External Catheter External Catheter # Voids 1 - Labs CBC & Chem 7: 01/25/24 07:38 01/25/24 07:38 Labs: Abnormal Lab Results - Last 24 Hours (Table) 01/24/24 01/24/24 01/24/24 Range/Units 11:37 16:19 17:33 RBC (4.30-5.90) m/uL Hgb (13.0-17.5) gm/dL MCV (80.0-100.0) fL RDW (11.5-15.5) % Lymphocytes # (1.0-4.8) k/uL Sodium (137-145) mmol/L Chloride (98-107) mmol/L BUN (9-20) mg/dL Glucose (74-99) mg/dL POC Glucose (mg/dL) 293 H 218 H 321 H (70-110) mg/dL 01/24/24 01/24/24 01/25/24 Range/Units 19:56 21:48 06:12 RBC (4.30-5.90) m/uL Hgb (13.0-17.5) gm/dL MCV (80.0-100.0) fL RDW (11.5-15.5) % Lymphocytes # (1.0-4.8) k/uL Sodium (137-145) mmol/L Chloride (98-107) mmol/L BUN (9-20) mg/dL Glucose (74-99) mg/dL POC Glucose (mg/dL) 403 H 427 H 460 H (70-110) mg/dL 01/25/24 01/25/24 Range/Units 07:38 07:38 RBC 4.00 L (4.30-5.90) m/uL Hgb 12.9 L (13.0-17.5) gm/dL MCV 100.6 H (80.0-100.0) fL RDW 16.5 H (11.5-15.5) % Lymphocytes # 0.3 L (1.0-4.8) k/uL Sodium 125 L (137-145) mmol/L Chloride 93 L (98-107) mmol/L BUN 33 H (9-20) mg/dL Glucose 361 H (74-99) mg/dL POC Glucose (mg/dL) (70-110) mg/dL Assessment and Plan Plan: Assessment: 1. Hyponatremia. 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 Cerebral salt wasting less likely as patient does not appear hypovolemic. Sodium level 125 this morning - corrected sodium for hyperglycemia near 130. It has been in the range of 124-128 since November 2023. Patient received IV fluids and sodium did improve from 122-125 but then dropped to 124. Urine sodium 147 and urine osmolality 529. These were drawn after the patient had received IV fluids. TSH elevated at 10.3 but free T4 is normal. Cortisol level low at 2.6. Patient is on Decadron. Fludrocortisone was also added January 23, 2024. Also receiving Samsca this admission. Case was discussed with primary team as well as neurology. 2. 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 Maintained on chemotherapy and radiation. Vasogenic edema in the right occipital and parietal lobes noted on brain CT reflective of metastatic disease. Neurology and oncology following. 3. Diabetes mellitus. 4. Hypomagnesemia from poor intake and diuresis. Being replaced. Better. Plan: Maintain fluid restriction. Maintain sodium chloride tabs. Repeat Samsca today. Blood glucose control. Repeat labs in the morning. Add low-dose Lasix as well.
[2024-01-25 11:29] LABS: Glucose,Whole Blood 529 mg/dL (70-110)
[2024-01-25] MEDS: FUROSEMIDE 20 MG TAB PO SCH (11:45)
[2024-01-25] MEDS: MAGNESIUM SULFATE-D5W PMX 1 GM in DEXTROSE/WATER 1 100ML.BAG IVPB SCH (11:45)
[2024-01-25] MEDS: dexAMETHasone 2 MG TAB PO SCH (11:46)
--- NOTE | 2024-01-25 12:33 | P.PN ---
Subjective Progress Note Date: 01/25/24 Patient tearful at todays visit, and mood is labile. Reports he had hallucinations overnight. Pt A&O x 3, able to answer questions appropriately. Na improving, 125 today. Counts stable. Afebrile, HDS Objective - Vital Signs Vital signs: Vital Signs Temp 97.4 F L 01/25/24 09:30 Pulse 91 01/25/24 09:30 Resp 16 01/25/24 09:30 BP 116/78 01/25/24 09:30 Pulse Ox 91 L 01/25/24 09:30 FiO2 40 01/20/24 08:16 Intake & Output 01/24/24 01/25/24 01/25/24 18:59 06:59 18:59 Intake Total 400 300 148 Output Total 300 800 Balance 400 0 -652 Weight 72.5 kg 74.5 kg Intake: IV 60 60 30 Invasive Line 1 20 20 10 Invasive Line 2 20 20 10 Invasive Line 3 20 20 10 Oral 340 240 118 Output: Urine 300 800 Stool 0 Other: Voiding Method External Catheter External Catheter External Catheter # Voids 1 - Constitutional General appearance: Present: mild distress - EENT Eyes: Present: EOMI ENT: Present: hearing grossly normal - Respiratory Details: breathing is even and unlabored - Cardiovascular Details: skin warm and dry - Integumentary Integumentary: Absent: cyanotic, jaundiced - Musculoskeletal Musculoskeletal: Present: left sided weakness - Psychiatric Psychiatric Comment(s): labile mood, tearful Psychiatric: Present: A&O x's 3 - Labs CBC & Chem 7: 01/25/24 07:38 01/25/24 07:38 Labs: Abnormal Lab Results - Last 24 Hours (Table) 01/24/24 01/24/24 01/24/24 Range/Units 11:37 16:19 17:33 RBC (4.30-5.90) m/uL Hgb (13.0-17.5) gm/dL MCV (80.0-100.0) fL RDW (11.5-15.5) % Lymphocytes # (1.0-4.8) k/uL Sodium (137-145) mmol/L Chloride (98-107) mmol/L BUN (9-20) mg/dL Glucose (74-99) mg/dL POC Glucose (mg/dL) 293 H 218 H 321 H (70-110) mg/dL 01/24/24 01/24/24 01/25/24 Range/Units 19:56 21:48 06:12 RBC (4.30-5.90) m/uL Hgb (13.0-17.5) gm/dL MCV (80.0-100.0) fL RDW (11.5-15.5) % Lymphocytes # (1.0-4.8) k/uL Sodium (137-145) mmol/L Chloride (98-107) mmol/L BUN (9-20) mg/dL Glucose (74-99) mg/dL POC Glucose (mg/dL) 403 H 427 H 460 H (70-110) mg/dL 01/25/24 01/25/24 Range/Units 07:38 07:38 RBC 4.00 L (4.30-5.90) m/uL Hgb 12.9 L (13.0-17.5) gm/dL MCV 100.6 H (80.0-100.0) fL RDW 16.5 H (11.5-15.5) % Lymphocytes # 0.3 L (1.0-4.8) k/uL Sodium 125 L (137-145) mmol/L Chloride 93 L (98-107) mmol/L BUN 33 H (9-20) mg/dL Glucose 361 H (74-99) mg/dL POC Glucose (mg/dL) (70-110) mg/dL Assessment and Plan (1) Left hemiparesis Current Visit: Yes Status: Acute Code(s): G81.94 - HEMIPLEGIA, UNSPECIFIED AFFECTING LEFT NONDOMINANT SIDE SNOMED Code(s): 369883167 (2) Metastasis to brain Current Visit: Yes Status: Acute Priority: High Code(s): C79.31 - SECONDARY MALIGNANT NEOPLASM OF BRAIN SNOMED Code(s): 81178197 (3) Squamous cell lung cancer Current Visit: Yes Status: Acute Priority: High Code(s): C34.90 - MALIGNANT NEOPLASM OF UNSP PART OF UNSP BRONCHUS OR LUNG SNOMED Code(s): 315326818 (4) Hyponatremia Current Visit: Yes Status: Acute Priority: High Code(s): E87.1 - HYPO- OSMOLALITY AND HYPONATREMIA SNOMED Code(s): 15985758 Plan: Left hemiparesis: The patient presented with new onset of the same. Differentials included new CVA, versus rebound vasogenic edema postradiation with postseizure Anuj's paralysis also considered a possibility. -The CT report had mentioned the possibility of progression of the brain mass, although the measured size was in the same range. Case was extensively discussed with the ER physician, [facility], and radiation oncology. The degree of midline shift was mild. It was subsequently determined by neurology that the left leg abnormality was actually chronic and stable. Radiation oncology reviewed his scans remotely, and determined that the size of the mass was stable or slightly less. -The patient was therefore placed back on higher dose of IV steroids to treat any component of rebound edema. He was admitted to the ICU, and is being follow ed by [facility], and neurology. -Repeat CT brain on 01/20 showing similar extensive vasogenic edema in the right occipital and parietal lobes. Possible slight increase in leftward midline shift -Brain MRI showing right parietal/occipital enhancing complex mass with vasogenic edema effacing the right lateral ventricle, now demonstrating some cystic components around the periphery. No CVA or new pathology noted -PT/OT consulted -Continues on decadron 6mg q6hrs, with improvement in mentation and left sided weakness. However, pt mood more labile today and is tearful, as well as noted hyperglycemia. Mood changes could be r/t high dose steroids. Discussed case with rad onc, will decrease decadron to 4mg q6hrs to see how patient responds Hyponatremia: -Possibly r/t SIADH from malignancy -Nephrology following -Continues PO sodium supplementation -Sodium slowly improving, 125 today Squamous cell lung cancer: The patient has had 1 cycle of systemic therapy. Treatment has been on hold due to various factors, as described in the HPI. This will be resumed once his acute problems are appropriately controlled and pt regains strength. Clinic f/u will be scheduled upon discharge to further discuss goals of care Doctor attests: I performed a history and physical examination of this patient, developed impression and plan of care. Discussed with dictator. I agree with dictators note, documented as a scribe.
[2024-01-25] MEDS: TOLVAPTAN 15 MG TABLET PO ONE (15:22)
--- NOTE | 2024-01-25 16:25 | P.PN ---
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 Subsequently, he was lost to follow-up and he presented back to us with a large left upper lobe mass and I performed bronchoscopy on this patient back in August 2023 and the findings were consistent with squamous cell carcinoma. The PET scan from September 2023 showed left upper lobe mass, PET avid in addition to metastatic activity involving the mediastinum and the right supraclavicular and bilateral lymph node lymphadenopathy in addition to left inferior pleural space FDG uptake and metastatic mediastinal lymphadenopathy. The patient was started on systemic treatment including a combination of carboplatinum, Alimta and Keytruda. While taking his second cycle of treatment, on 12/15/2023, the patient was noted to being have increased shortness of breath. He was sent to the emergency department and a CT angiogram of the chest was done and the patient was found to have small segmental branch pulmonary embolism involving the right lower lobe. Minimal overall clot burden. There was new moderate to large left-sided effusion along with atelectatic collapse of the left lower lobe. New moderate right-sided pleural effusion with adjacent atelectasis. There was also pleural nodularity in the posterior left upper lobe, additional disease progression with new pericardial lymphadenopathy measuring up to 2.1 cm in size and there was also a large left upper lobe mass encasing the left hilum that was measuring 11.9 cm in size with metastatic mediastinal and hilar l ymphadenopathy and the patient had shown some partial response as the patient was receiving systemic chemotherapy. The echocardiogram that was done at that time on 12/15/2023 showed preserved LV function, normal RV size and function. Venous Doppler of the lower extremity that was done on 12/16/2023 showed no evidence of any DVT. Noted, the patient had a Pleurx catheter insertion on 12/19/2023 into the left pleural space and the fluid cytology was essentially negative for carcinoma or malignancy. The patient was discharged home and anticoagulation with Eliquis. Readmitted to the hospital on 12/28/2023 with altered mentation. The patient had unresponsiveness and new onset seizures. MRI of the brain was done and the patient was found to have right parietal/occipital mass with vasogenic edema. The patient was started on Keppra and Decadron. Anticoagulation was stopped and the patient was given an IVC filter on 01/02/2024 and the patient was discharged home on 01/03/2024 and he was advised to continue Decadron 4 mg p.o. 3 times daily and Keppra 750 mg p.o. twice daily. The patient was also seen by radiation oncology. Received SBRT to his brain, a total of 3 sessions earlier this week. The patient came into the emergency department today with strokelike symptoms and left-sided weakness. The patient also had altered mentation. His last known normal was unclear but this was sometime yesterday night. The patient was experiencing left-sided weakness, facial droop and dysarthria. He also had developed a dilated left pupil which was noted few weeks back. CT scan of the brain was done in Emergency Department and the patient was found to have a 2 point centimeter lesion that had been enlarging compared to the previous CAT scan of the brain that was done on 12/28/2023. The patient had hyperdense right occipital lobe 2.1 cm lesion with increasing surrounding vasogenic edema and a 3 mm left shift from midline. The CTA of the brain was also done and it showed no evidence of dissection of the cervical or internal carotid arteries or vertebral arteries. No evidence of any high-grade stenosis intracranially. There was a enhancing right occipital lobe mass with surrounding vasogenic edema. In the emergency, the patient had also 2 episodes of seizures. The case was discussed with outside facilities regarding transfer and was found that there was no indication for this medical transfer. The patient was started on Decadron 6 mg IV every 6 hours and the patient was kept on Keppra 750 mg IV every 12 hours. He was admitted to the intensive care unit for further management. He seems to be quite obtunded at this point in time. Blood gas was also done in the ICU and the patient was found to have a pH of 7.16 with a pCO2 of 85 and a pO2 of 70 and this was done by the patient being in 60s of oxygen by nasal cannula. Accordingly, the patient was placed on a BiPAP. Chest x-ray has not been done yet. The white cell count is 11.5 with a hemoglobin 12.7 and platelet count of 488. BUN 25 L and 0.6 and a sodium levels at 128. Blood sugar is at 454. Norm al UA. Urine drug screen is positive for marijuana and opiates. 01/20/2024, the patient is much more awake compared to yesterday. The patient is unable to move his left upper and left lower extremity. He is able to wiggle his toes and his fingers on the left. Mental status is improved. No further seizure activity has been noted. The patient remains on a combination of Keppra and Decadron. Keppra is 500 mg IV every 12 hours and the patient is also on Decadron at 6 mg IV every 6 hours. The patient was further taken off the BiPAP. He is currently on 2 L of oxygen by nasal cannula. Pulse ox is 98%. Morning blood work shows a WBC count of 8.9, hemoglobin 10.9 and platelet count of 378. BUN is 19 with a creatinine of 0.49 and a sodium levels at 133. He does have a Pleurx catheter in his left chest and a total of 100 cc of pleural fluid was evacuated this morning. The follow-up chest x-ray shows some limited improvement in aeration of the left lung base. . On today's evaluation of 01/21/2024, the patient is free of any seizures. He has not had any seizures over the past 24 hours. Remains on Keppra. Remains on Decadron. He is a bit confused and delirious. Trying to get out of bed. He has a sitter at the bedside. Left side remains weak although there is some li mited improving motor function left upper extremity on today's evaluation. The patient has no signs of any respiratory distress. The white cell count is at 9.1 with a hemoglobin 11.7 and a platelet count of 447. BUN is 23 with a creatinine of 0.6. Sodium level is at 126. The patient is drinking liquids. No other significant events overnight. He remains on Levemir insulin 8 units twice daily and sliding scale insulin coverage. Patient evaluated today on 01/22/2024, patient seems to be very comfortable, not in any distress, he is on few liters nasal cannula, and intermittently on BiPAP 01/24/40%, he was just started on 3% saline for his hyponatremia with a sodium of 123, patient also is on Decadron at 6 mg IV push every 6 hours for his brain metastasis. His last seizure was 01/18, patient has metastatic head and neck cancer with metastasis to the lungs and to the brain. He also has a left Pleurx catheter in place for recurrent left-sided pleural effusion CT of the brain showed right occipital mass which seems to be quite large. Patient is being followed by nephrology as well as by hematology/oncology. Receiving chemotherapy as well as immunotherapy. Pulmonary turk he does not seem to be in distress, seems to be fairly comfortable, he does have left-sided paralysis WBC count is 6.6 hemoglobin 12.3 sodium is 123 potassium 4.6. Renal profile is normal Patient was evaluated today on 01/23/2024, remains in the ICU, however the patient has had no seizures in the last few days. Being followed by many consultants including oncology and radiation oncology patient seems to be doing fairly well, does not seem to be in any distress. He is on room air, sodium remains low at 124, being addressed by nephrology. Patient had no seizure activity. And he seems to have chronic hyponatremia. 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 Due blood sugar today is 439, hence his true sodium is actually slightly in the 129 range Seen today on 01/24/2024, patient is now on medical floor, not in the ICU, no major events over the last 24 hours, and no seizures. Patient is on room air, comfortable, not in any distress, O2 saturation is 99% on room air, patient is hemodynamically stable WBC count is 8.9 hemoglobin 13.4 sodium remains low at 123 blood sugar is 230 Seen today on 01/25/2024, patient is doing well, no active pulmonary issues, on nasal cannula, not in distress, no seizure activity, being followed by many consultants including neurology, radiation oncology, and medical oncology. Blood sugar is running quite high, patient may benefit from insulin drip, however this is being addressed by the admitting physician/hospitalist. Objective - Vital Signs Vital signs: Vital Signs Temp 97.4 F L 01/25/24 09:30 Pulse 81 01/25/24 11:20 Resp 16 01/25/24 11:20 BP 116/83 01/25/24 11:20 Pulse Ox 100 01/25/24 11:20 FiO2 40 01/20/24 08:16 Intake & Output 01/24/24 01/25/24 01/25/24 18:59 06:59 18:59 Intake Total 400 300 148 Output Total 300 800 Balance 400 0 -652 Weight 72.5 kg 74.5 kg Intake: IV 60 60 30 Invasive Line 1 20 20 10 Invasive Line 2 20 20 10 Invasive Line 3 20 20 10 Oral 340 240 118 Output: Urine 300 800 Stool 0 Other: Voiding Method External Catheter External Catheter External Catheter # Voids 1 - Exam GENERAL EXAM: Revealed a 63-year-old white male in no distress HEAD: Normocephalic. EYES: Dilated left pupil NOSE: Clear with pink turbinates. THROAT: No erythema or exudates. NECK: No masses, no JVD. CHEST: No chest wall deformity. LUNGS: Equal air entry with bibasilar crackles, left greater than right, diminished left lung base. CVS: S1 and S2 normal with no audible murmur, regular rhythm. ABDOMEN: No hepatosplenomegaly, normal bowel sounds, no guarding or rigidity. SKIN: No rashes CENTRAL NERVOUS SYSTEM: Left-sided weakness, dilated left pupil, free of any seizures. . Awake and alert and communicating. Left-sided paralysis is unchanged. EXTREMITIES: There is no peripheral edema. No clubbing, no cyanosis. Peripheral pulses are intact. - Labs CBC & Chem 7: 01/25/24 07:38 01/25/24 07:38 Labs: Abnormal Lab Results - Last 24 Hours (Table) 01/24/24 01/24/24 01/24/24 Range/Units 17:33 19:56 21:48 RBC (4.30-5.90) m/uL Hgb (13.0-17.5) gm/dL MCV (80.0-100.0) fL RDW (11.5-15.5) % Lymphocytes # (1.0-4.8) k/uL Sodium (137-145) mmol/L Chloride (98-107) mmol/L BUN (9-20) mg/dL Glucose (74-99) mg/dL POC Glucose (mg/dL) 321 H 403 H 427 H (70-110) mg/dL 01/25/24 01/25/24 01/25/24 Range/Units 06:12 07:38 07:38 RBC 4.00 L (4.30-5.90) m/uL Hgb 12.9 L (13.0-17.5) gm/dL MCV 100.6 H (80.0-100.0) fL RDW 16.5 H (11.5-15.5) % Lymphocytes # 0.3 L (1.0-4.8) k/uL Sodium 125 L (137-145) mmol/L Chloride 93 L (98-107) mmol/L BUN 33 H (9-20) mg/dL Glucose 361 H (74-99) mg/dL POC Glucose (mg/dL) 460 H (70-110) mg/dL 01/25/24 Range/Units 11:27 RBC (4.30-5.90) m/uL Hgb (13.0-17.5) gm/dL MCV (80.0-100.0) fL RDW (11.5-15.5) % Lymphocytes # (1.0-4.8) k/uL Sodium (137-145) mmol/L Chloride (98-107) mmol/L BUN (9-20) mg/dL Glucose (74-99) mg/dL POC Glucose (mg/dL) 529 H* (70-110) mg/dL Assessment and Plan Assessment: Pression: Seizures, likely a manifestation of [facility] [employer] metastases, maintained on Keppra on outpatient basis. The patient also has an enlarging right occipital brain lesion measuring 2.1 cm in size with surrounding edema and 3 mm leftward midline shift. The patient is currently on a combination of Decadron and Keppra. Neurology on the case. Continues to have paralysis of the left upper and left lower extremity. Delirium/confusion, multifactorial. Acute hypoxic/hypercapnic respiratory failure, currently off the BiPAP and patient is on room air oxygen Metastatic [facility] [employer] lesion, right occipital, currently on Decadron, status post SBRT Left-sided weakness, rule out Anuj's paralysis following seizure. Rule out motor deficits related to metastatic brain lesion and vasogenic edema, cl inically unchanged Metastatic squamous cell carcinoma of the lung versus metastatic from head and neck/tongue cancer from 2021, initiated on a combination of carboplatin Alimta and Keytruda on 12/06/2023 and the patient received only 1 cycle. History of tongue cancer Left upper lobe mass measuring 12 cm in size with extensive mediastinal lymphadenopathy consistent with metastatic disease Pulmonary embolism, small segmental, status post IVC filter placement History of Pleurx catheter insertion for a left-sided pleural effusion, pleural fluid cytology has been negative for malignancy, left lung is quite opacified due to a left upper lobe tumor, atelectasis and a left-sided pleural effusion. Diabetes mellitus with steroid-induced hyperglycemia Hypothyroidism Recommendation: Continue seizure medications Continue to intermittently drain the Pleurx catheter/left-sided pleural effusion Continue Decadron Continue Seroquel Continue insulin Close monitoring for recurrent seizures patient is now on Keppra Continue IVC filter for his previous history of pulmonary embolism patient cannot have anticoagulation therapy because of his [facility] metastasis Continue IV Protonix Close watch of his sodium and glucose may have to be considered for possible insulin drip since his sugar is running above 400 Patient is being seen by radiation oncology and medical oncology. Will follow as needed Time with Patient: Less than 30
[2024-01-25 16:43] LABS: Glucose,Whole Blood 205 mg/dL (70-110)
[2024-01-25] MEDS: INSULIN NPH 100 UNIT/ML 10 ML VIAL SQ SCH (18:22)
[2024-01-25 20:04] LABS: Glucose,Whole Blood 443 mg/dL (70-110)
[2024-01-26 02:18] LABS: Glucose,Whole Blood 225 mg/dL (70-110)
[2024-01-26 06:06] LABS: Glucose,Whole Blood 235 mg/dL (70-110)
[2024-01-26] MEDS ORDERED: INSULIN DETEMIR (LEVEMIR) 100 UNIT/ML SYR SQ SCH (07:00)
[2024-01-26 08:18] LABS: Anisocytosis Slight; Basophils % (A) 0 %; Eosinophils % (A) 0 %; HCT 38.3 % (39.0-53.0); HGB 12.3 gm/dL (13.0-17.5); Lymphocytes # (A) 0.4 k/uL (1.0-4.8); Lymphocytes % (A) 4 %; MCH 31.5 pg (25.0-35.0); MCHC 32.1 g/dL (31.0-37.0); MCV 98.2 fL (80.0-100.0); Macrocytosis Slight; Mean Platelet Volume 6.7; Monocytes # (A) 0.6 k/uL (0-1.0); Monocytes % (A) 6 %; Neutrophils # (A) 8.6 k/uL (1.3-7.7); Neutrophils % (A) 90 %; RDW 16.5 % (11.5-15.5); WBC 9.6 k/uL (3.8-10.6)
[2024-01-26 08:32] LABS: Platelet Count 565 k/uL (150-450)
[2024-01-26 08:35] LABS: ALT 49 U/L (4-49); AST 38 U/L (17-59); African American GFR (CKD) >90 (>60 ml/min/1.73 sqM); Alkaline Phosphatase 188 U/L (38-126); Anion Gap 3 mmol/L; Blood Urea Nitrogen 31 mg/dL (9-20); Calcium 8.5 mg/dL (8.4-10.2); Carbon Dioxide 29 mmol/L (22-30); Chloride 96 mmol/L (98-107); Glucose 242 mg/dL (74-99); Magnesium 1.7 mg/dL (1.6-2.3); Non-African American GFR(CKD) >90 (>60 ml/min/1.73 sqM); Potassium 4.5 mmol/L (3.5-5.1); Sodium 128 mmol/L (137-145); Total Bilirubin 0.3 mg/dL (0.2-1.3); Total Protein 5.7 g/dL (6.3-8.2)
--- NOTE | 2024-01-26 10:02 | P.PN ---
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 Known left-sided weakness with left pupil dilatation. CT of the brain demonstrated 2.1 cm lesion enlarging from prior with worsening vasogenic edema and left midline shift. Had 1 seizure with EMS. Initial vital signs were remarkable for tachycardia with heart rate of 102 and blood pressure of 184/117. Initial laboratory analysis was remarkable for white blood cell count 11.5, hemoglobin 12.7, platelets 488, sodium 128. At that time ABG showed a pH of 7.16 with a pCO2 of 85. Additionally patient underwent CTA of the head and neck which showed no significant stenosis. Chest x-ray showed increasing inte rstitial density concerning for pulmonary vascular congestion with ongoing volume loss and extensive pleural opacity throughout the left hemithorax with left basilar Pleurx catheter in place. Patient was admitted to the ICU with breakthrough seizure. Patient had 1 seizure with EMS and 2 seizures in the emergency department the second requiring the use of Ativan to abort the seizure. Neurology and critical care were consulted. Consideration was made for transfer but it was found that there is no indication for medical transfer. Patient was started on Decadron 6 mg IV every 6 hours and Keppra 750 mg IV every 12 hours. Was started on BiPAP due to the ABG results which was weaned off by 01/19, was briefly on an insulin gtt. sodium noted to be downtrending. was placed on hypertonic briefly however transitioned to salt tablets/fluid restriction. Na level had remained stable in the 120 range. The patient reports that he has periodic visual hallucinations. He reports that he sees someone there that he knows is not there. Objective - Vital Signs Vital signs: Vital Signs Temp 97.8 F 01/26/24 03:48 Pulse 83 01/26/24 03:48 Resp 16 01/26/24 03:48 BP 135/92 01/26/24 03:48 Pulse Ox 96 01/26/24 03:48 FiO2 40 01/20/24 08:16 Intake & Output 01/25/24 01/26/24 01/26/24 18:59 06:59 18:59 Intake Total 648 280 Output Total 1350 900 Balance -702 -620 Weight 67.2 kg Intake: IV 50 40 Invasive Line 1 20 20 Invasive Line 2 10 Invasive Line 3 20 20 Oral 598 240 Output: Urine 1350 900 Stool 0 Other: Voiding Method External Catheter External Catheter # Voids 1 - Exam General: non toxic, no distress, male appears stated age, male. sittin in chair. Derm: warm, dry Head: atraumatic, normocephalic, symmetric Eyes: EOMI, no lid lag, anicteric sclera, pupils equal round reactive to light ENT: Nose and ears atraumatic, no thrush, no pharyngeal erythema Neck: No thyromegaly, no cervical lymphadenopathy, trachea midline, supple Mouth: no lip lesion, mucus membranes moist Cardiovascular: S1S2 reg, no murmur, positive posterior tibial pulse bilateral, no edema, capillary refill less than 2 seconds Lungs: clear to ascultation bilateral. there is a pleurex catheter on left anterior chest wall. Abdominal: soft, nontender to palpation, no guarding, no appreciable organomegaly, normal bowel sounds Ext: no ble edema Neuro: LUE and LLE motor strength 3/5+. RUE and RLE motor strength 5/5. gait not tested Psych: Calm and cooperative - Labs CBC & Chem 7: 01/26/24 07:45 01/26/24 07:45 Labs: Abnormal Lab Results - Last 24 Hours (Table) 01/25/24 01/25/24 01/25/24 Range/Units 11:27 16:41 20:02 RBC (4.30-5.90) m/uL Hgb (13.0-17.5) gm/dL Hct (39.0-53.0) % RDW (11.5-15.5) % Plt Count (150-450) k/uL Neutrophils # (1.3-7.7) k/uL Lymphocytes # (1.0-4.8) k/uL Sodium (137-145) mmol/L Chloride (98-107) mmol/L BUN (9-20) mg/dL Glucose (74-99) mg/dL POC Glucose (mg/dL) 529 H* 205 H 443 H (70-110) mg/dL Alkaline Phosphatase (38-126) U/L Total Protein (6.3-8.2) g/dL Albumin (3.5-5.0) g/dL 01/26/24 01/26/24 01/26/24 Range/Units 02:15 06:04 07:45 RBC (4.30-5.90) m/uL Hgb (13.0-17.5) gm/dL Hct (39.0-53.0) % RDW (11.5-15.5) % Plt Count (150-450) k/uL Neutrophils # (1.3-7.7) k/uL Lymphocytes # (1.0-4.8) k/uL Sodium 128 L (137-145) mmol/L Chloride 96 L (98-107) mmol/L BUN 31 H (9-20) mg/dL Glucose 242 H (74-99) mg/dL POC Glucose (mg/dL) 225 H 235 H (70-110) mg/dL Alkaline Phosphatase 188 H (38-126) U/L Total Protein 5.7 L (6.3-8.2) g/dL Albumin 3.0 L (3.5-5.0) g/dL 01/26/24 Range/Units 07:45 RBC 3.90 L (4.30-5.90) m/uL Hgb 12.3 L (13.0-17.5) gm/dL Hct 38.3 L (39.0-53.0) % RDW 16.5 H (11.5-15.5) % Plt Count 565 H D (150-450) k/uL Neutrophils # 8.6 H (1.3-7.7) k/uL Lymphocytes # 0.4 L (1.0-4.8) k/uL Sodium (137-145) mmol/L Chloride (98-107) mmol/L BUN (9-20) mg/dL Glucose (74-99) mg/dL POC Glucose (mg/dL) (70-110) mg/dL Alkaline Phosphatase (38-126) U/L Total Protein (6.3-8.2) g/dL Albumin (3.5-5.0) g/dL Assessment and Plan Assessment: #) Breakthrough seizure. This is likely 2/2 to right pareital occiptal brain mass with vasogenic edema effacing the right lateral ventricle. Continue PO keppra 750 mg BID as antiepileptic. seizure precautions. no driving for 6 months. Continue dexamethasone 6 mg q6hr for vasogenic edema. 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 ?metastatic from left tongue. #) Hyponatremia - SIADH vs. less likely cerebral salt wasting. Continue fluid restriction at 1500 cc daily. Previously on 3% on 01/21. Given noted dose of tolvaptan on January 24. Continue sodium chloride 1 g tablets. I suspect may be able to discontinue fludrocortisone as I think a cerebral salt wasting is less likely #) Eurthyroid sick syndrome- continue tsh in 4-6 weeks outpatient. Continue home levothryoxine 176 mgcg daily #) Dm2 with steroid induced hyperglycemia. a1c of 8.2%. NPH 20 units twice daily with sliding scale insulin. Fasting blood sugar this morning is 242, higher than I would like. I have increased his NPH from 15 units to 20 units tw ice daily. #) Anemia, likely multifactorial, continue to monitor hgb daily #) Acute hypercapnic respiratory failure, resolved #) advanced care planning- code status changed from full code to DNR, ok for intubation/mechanical ventilation. agreeable on 01/23 evening DVT Ppx: SCds. s/p ivc filter. hold pharmacological dvt ppx for now given brain mets Anticipate discharge date: Sufficiently medical acceptable for SNF placement Anticipated discharge place: SNF Time with Patient: Greater than 30
--- NOTE | 2024-01-26 10:42 | P.PN ---
Subjective Patient is seen in follow-up for hyponatremia. Has received Samsca last 3 days. On salt tabs and oral Lasix as well. Sodium level 128. Oral intake is good. Vital signs are stable. General: No acute distress. HEENT: Head exam is unremarkable. LUNGS: No audible rhonchi or wheezes. HEART: Rate and Rhythm are regular. ABDOMEN: Nontender. EXTREMITITES: Trace edema. Objective - Vital Signs Vital signs: Vital Signs Temp 97.8 F 01/26/24 03:48 Pulse 83 01/26/24 03:48 Resp 16 01/26/24 03:48 BP 135/92 01/26/24 03:48 Pulse Ox 96 01/26/24 03:48 FiO2 40 01/20/24 08:16 Intake & Output 01/25/24 01/26/24 01/26/24 18:59 06:59 18:59 Intake Total 648 280 118 Output Total 1350 900 Balance -702 -620 118 Weight 67.2 kg Intake: IV 50 40 Invasive Line 1 20 20 Invasive Line 2 10 Invasive Line 3 20 20 Oral 598 240 118 Output: Urine 1350 900 Stool 0 Other: Voiding Method External Catheter External Catheter # Voids 1 - Labs CBC & Chem 7: 01/26/24 07:45 01/26/24 07:45 Labs: Abnormal Lab Results - Last 24 Hours (Table) 01/25/24 01/25/24 01/25/24 Range/Units 11:27 16:41 20:02 RBC (4.30-5.90) m/uL Hgb (13.0-17.5) gm/dL Hct (39.0-53.0) % RDW (11.5-15.5) % Plt Count (150-450) k/uL Neutrophils # (1.3-7.7) k/uL Lymphocytes # (1.0-4.8) k/uL Sodium (137-145) mmol/L Chloride (98-107) mmol/L BUN (9-20) mg/dL Glucose (74-99) mg/dL POC Glucose (mg/dL) 529 H* 205 H 443 H (70-110) mg/dL Alkaline Phosphatase (38-126) U/L Total Protein (6.3-8.2) g/dL Albumin (3.5-5.0) g/dL 01/26/24 01/26/24 01/26/24 Range/Units 02:15 06:04 07:45 RBC (4.30-5.90) m/uL Hgb (13.0-17.5) gm/dL Hct (39.0-53.0) % RDW (11.5-15.5) % Plt Count (150-450) k/uL Neutrophils # (1.3-7.7) k/uL Lymphocytes # (1.0-4.8) k/uL Sodium 128 L (137-145) mmol/L Chloride 96 L (98-107) mmol/L BUN 31 H (9-20) mg/dL Glucose 242 H (74-99) mg/dL POC Glucose (mg/dL) 225 H 235 H (70-110) mg/dL Alkaline Phosphatase 188 H (38-126) U/L Total Protein 5.7 L (6.3-8.2) g/dL Albumin 3.0 L (3.5-5.0) g/dL 01/26/24 Range/Units 07:45 RBC 3.90 L (4.30-5.90) m/uL Hgb 12.3 L (13.0-17.5) gm/dL Hct 38.3 L (39.0-53.0) % RDW 16.5 H (11.5-15.5) % Plt Count 565 H D (150-450) k/uL Neutrophils # 8.6 H (1.3-7.7) k/uL Lymphocytes # 0.4 L (1.0-4.8) k/uL Sodium (137-145) mmol/L Chloride (98-107) mmol/L BUN (9-20) mg/dL Glucose (74-99) mg/dL POC Glucose (mg/dL) (70-110) mg/dL Alkaline Phosphatase (38-126) U/L Total Protein (6.3-8.2) g/dL Albumin (3.5-5.0) g/dL Assessment and Plan Plan: Assessment: 1. Hyponatremia. 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 Cerebral salt wasting less likely as patient does not appear hypovolemic. Sodium level 128 this morning. It has been in the range of 124-128 since November 2023. Patient received IV fluids and sodium did improve from 122-125 but then dropped to 124. Urine sodium 147 and urine osmolality 529. These were drawn after the patient had received IV fluids. TSH elevated at 10.3 but free T4 is normal. Cortisol level low at 2.6. Patient is on Decadron. Fludrocortisone was also added January 23, 2024. [facility]. Case was discussed with primary team as well as neurology. 2. 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 Maintained on chemotherapy and radiation. Vasogenic edema in the right occipital and parietal lobes noted on brain CT reflective of metastatic disease. Neurology and oncology following. 3. Diabetes mellitus. 4. Hypomagnesemia from poor intake and diuresis. Being replaced. Better. Plan: Maintain fluid restriction. Maintain sodium chloride tabs. Maintain Lasix. Blood glucose control. Repeat labs in the morning. Will repeat Samsca if sodium level not trending up.
[2024-01-26 11:40] LABS: Glucose,Whole Blood 475 mg/dL (70-110)
[2024-01-26] MEDS: OLANZapine 10 MG VIAL IM STA (12:36)
[2024-01-26 16:48] LABS: Glucose,Whole Blood 540 mg/dL (70-110)
--- NOTE | 2024-01-26 17:25 | P.PN ---
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 Subsequently, he was lost to follow-up and he presented back to us with a large left upper lobe mass and I performed bronchoscopy on this patient back in August 2023 and the findings were consistent with squamous cell carcinoma. The PET scan from September 2023 showed left upper lobe mass, PET avid in addition to metastatic activity involving the mediastinum and the right supraclavicular and bilateral lymph node lymphadenopathy in addition to left inferior pleural space FDG uptake and metastatic mediastinal lymphadenopathy. The patient was started on systemic treatment including a combination of carboplatinum, Alimta and Keytruda. While taking his second cycle of treatment, on 12/15/2023, the patient was noted to being have increased shortness of breath. He was sent to the emergency department and a CT angiogram of the chest was done and the patient was found to have small segmental branch pulmonary embolism involving the right lower lobe. Minimal overall clot burden. There was new moderate to large left-sided effusion along with atelectatic collapse of the left lower lobe. New moderate right-sided pleural effusion with adjacent atelectasis. There was also pleural nodularity in the posterior left upper lobe, additional disease progression with new pericardial lymphadenopathy measuring up to 2.1 cm in size and there was also a large left upper lobe mass encasing the left hilum that was measuring 11.9 cm in size with metastatic mediastinal and hilar l ymphadenopathy and the patient had shown some partial response as the patient was receiving systemic chemotherapy. The echocardiogram that was done at that time on 12/15/2023 showed preserved LV function, normal RV size and function. Venous Doppler of the lower extremity that was done on 12/16/2023 showed no evidence of any DVT. Noted, the patient had a Pleurx catheter insertion on 12/19/2023 into the left pleural space and the fluid cytology was essentially negative for carcinoma or malignancy. The patient was discharged home and anticoagulation with Eliquis. Readmitted to the hospital on 12/28/2023 with altered mentation. The patient had unresponsiveness and new onset seizures. MRI of the brain was done and the patient was found to have right parietal/occipital mass with vasogenic edema. The patient was started on Keppra and Decadron. Anticoagulation was stopped and the patient was given an IVC filter on 01/02/2024 and the patient was discharged home on 01/03/2024 and he was advised to continue Decadron 4 mg p.o. 3 times daily and Keppra 750 mg p.o. twice daily. The patient was also seen by radiation oncology. Received SBRT to his brain, a total of 3 sessions earlier this week. The patient came into the emergency department today with strokelike symptoms and left-sided weakness. The patient also had altered mentation. His last known normal was unclear but this was sometime yesterday night. The patient was experiencing left-sided weakness, facial droop and dysarthria. He also had developed a dilated left pupil which was noted few weeks back. CT scan of the brain was done in Emergency Department and the patient was found to have a 2 point centimeter lesion that had been enlarging compared to the previous CAT scan of the brain that was done on 12/28/2023. The patient had hyperdense right occipital lobe 2.1 cm lesion with increasing surrounding vasogenic edema and a 3 mm left shift from midline. The CTA of the brain was also done and it showed no evidence of dissection of the cervical or internal carotid arteries or vertebral arteries. No evidence of any high-grade stenosis intracranially. There was a enhancing right occipital lobe mass with surrounding vasogenic edema. In the emergency, the patient had also 2 episodes of seizures. The case was discussed with outside facilities regarding transfer and was found that there was no indication for this medical transfer. The patient was started on Decadron 6 mg IV every 6 hours and the patient was kept on Keppra 750 mg IV every 12 hours. He was admitted to the intensive care unit for further management. He seems to be quite obtunded at this point in time. Blood gas was also done in the ICU and the patient was found to have a pH of 7.16 with a pCO2 of 85 and a pO2 of 70 and this was done by the patient being in 60s of oxygen by nasal cannula. Accordingly, the patient was placed on a BiPAP. Chest x-ray has not been done yet. The white cell count is 11.5 with a hemoglobin 12.7 and platelet count of 488. BUN 25 L and 0.6 and a sodium levels at 128. Blood sugar is at 454. Norm al UA. Urine drug screen is positive for marijuana and opiates. 01/20/2024, the patient is much more awake compared to yesterday. The patient is unable to move his left upper and left lower extremity. He is able to wiggle his toes and his fingers on the left. Mental status is improved. No further seizure activity has been noted. The patient remains on a combination of Keppra and Decadron. Keppra is 500 mg IV every 12 hours and the patient is also on Decadron at 6 mg IV every 6 hours. The patient was further taken off the BiPAP. He is currently on 2 L of oxygen by nasal cannula. Pulse ox is 98%. Morning blood work shows a WBC count of 8.9, hemoglobin 10.9 and platelet count of 378. BUN is 19 with a creatinine of 0.49 and a sodium levels at 133. He does have a Pleurx catheter in his left chest and a total of 100 cc of pleural fluid was evacuated this morning. The follow-up chest x-ray shows some limited improvement in aeration of the left lung base. . On today's evaluation of 01/21/2024, the patient is free of any seizures. He has not had any seizures over the past 24 hours. Remains on Keppra. Remains on Decadron. He is a bit confused and delirious. Trying to get out of bed. He has a sitter at the bedside. Left side remains weak although there is some li mited improving motor function left upper extremity on today's evaluation. The patient has no signs of any respiratory distress. The white cell count is at 9.1 with a hemoglobin 11.7 and a platelet count of 447. BUN is 23 with a creatinine of 0.6. Sodium level is at 126. The patient is drinking liquids. No other significant events overnight. He remains on Levemir insulin 8 units twice daily and sliding scale insulin coverage. Patient evaluated today on 01/22/2024, patient seems to be very comfortable, not in any distress, he is on few liters nasal cannula, and intermittently on BiPAP 01/24/40%, he was just started on 3% saline for his hyponatremia with a sodium of 123, patient also is on Decadron at 6 mg IV push every 6 hours for his brain metastasis. His last seizure was 01/18, patient has metastatic head and neck cancer with metastasis to the lungs and to the brain. He also has a left Pleurx catheter in place for recurrent left-sided pleural effusion CT of the brain showed right occipital mass which seems to be quite large. Patient is being followed by nephrology as well as by hematology/oncology. Receiving chemotherapy as well as immunotherapy. Pulmonary turk he does not seem to be in distress, seems to be fairly comfortable, he does have left-sided paralysis WBC count is 6.6 hemoglobin 12.3 sodium is 123 potassium 4.6. Renal profile is normal Patient was evaluated today on 01/23/2024, remains in the ICU, however the patient has had no seizures in the last few days. Being followed by many consultants including oncology and radiation oncology patient seems to be doing fairly well, does not seem to be in any distress. He is on room air, sodium remains low at 124, being addressed by nephrology. Patient had no seizure activity. And he seems to have chronic hyponatremia. 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 Due blood sugar today is 439, hence his true sodium is actually slightly in the 129 range Seen today on 01/24/2024, patient is now on medical floor, not in the ICU, no major events over the last 24 hours, and no seizures. Patient is on room air, comfortable, not in any distress, O2 saturation is 99% on room air, patient is hemodynamically stable WBC count is 8.9 hemoglobin 13.4 sodium remains low at 123 blood sugar is 230 Seen today on 01/25/2024, patient is doing well, no active pulmonary issues, on nasal cannula, not in distress, no seizure activity, being followed by many consultants including neurology, radiation oncology, and medical oncology. Blood sugar is running quite high, patient may benefit from insulin drip, however this is being addressed by the admitting physician/hospitalist. Patient was seen today on 01/26/2024, patient is doing well, no major pulmonary issues at this point, no further seizures. Patient is sitting at the bedside chair, eating on his own. WBC count is 9.6 hemoglobin 12.3 sodium is 128 his blood sugar remains high, I believe the patient may benefit from insulin infusion for his elevated blood sugars that is being addressed by the admitting physician. Objective - Vital Signs Vital signs: Vital Signs Temp 98.3 F 01/26/24 09:35 Pulse 97 01/26/24 12:00 Resp 16 01/26/24 12:00 BP 91/64 01/26/24 12:00 Pulse Ox 99 01/26/24 12:00 FiO2 40 01/20/24 08:16 Intake & Output 01/25/24 01/26/24 01/26/24 18:59 06:59 18:59 Intake Total 648 280 276 Output Total 1350 900 600 Balance -702 -620 -324 Weight 67.2 kg Intake: IV 50 40 40 Invasive Line 1 20 20 20 Invasive Line 2 10 Invasive Line 3 20 20 20 Oral 598 240 236 Output: Urine 1350 900 600 Stool 0 0 Other: Voiding Method External Catheter External Catheter External Catheter # Voids 1 # Bowel Movements 1 - Exam GENERAL EXAM: Revealed a 63-year-old white male in no distress HEAD: Normocephalic. EYES: Dilated left pupil NOSE: Clear with pink turbinates. THROAT: No erythema or exudates. NECK: No masses, no JVD. CHEST: No chest wall deformity. LUNGS: Equal air entry with bibasilar crackles, left greater than right, d iminished left lung base. CVS: S1 and S2 normal with no audible murmur, regular rhythm. ABDOMEN: No hepatosplenomegaly, normal bowel sounds, no guarding or rigidity. SKIN: No rashes CENTRAL NERVOUS SYSTEM: Left-sided weakness, dilated left pupil, free of any seizures. . Awake and alert and communicating. Left-sided paralysis is unchanged. EXTREMITIES: There is no peripheral edema. No clubbing, no cyanosis. Peripheral pulses are intact. - Labs CBC & Chem 7: 01/26/24 07:45 01/26/24 07:45 Labs: Abnormal Lab Results - Last 24 Hours (Table) 01/25/24 01/26/24 01/26/24 Range/Units 20:02 02:15 06:04 RBC (4.30-5.90) m/uL Hgb (13.0-17.5) gm/dL Hct (39.0-53.0) % RDW (11.5-15.5) % Plt Count (150-450) k/uL Neutrophils # (1.3-7.7) k/uL Lymphocytes # (1.0-4.8) k/uL Sodium (137-145) mmol/L Chloride (98-107) mmol/L BUN (9-20) mg/dL Glucose (74-99) mg/dL POC Glucose (mg/dL) 443 H 225 H 235 H (70-110) mg/dL Alkaline Phosphatase (38-126) U/L Total Protein (6.3-8.2) g/dL Albumin (3.5-5.0) g/dL 01/26/24 01/26/24 01/26/24 Range/Units 07:45 07:45 11:38 RBC 3.90 L (4.30-5.90) m/uL Hgb 12.3 L (13.0-17.5) gm/dL Hct 38.3 L (39.0-53.0) % RDW 16.5 H (11.5-15.5) % Plt Count 565 H D (150-450) k/uL Neutrophils # 8.6 H (1.3-7.7) k/uL Lymphocytes # 0.4 L (1.0-4.8) k/uL Sodium 128 L (137-145) mmol/L Chloride 96 L (98-107) mmol/L BUN 31 H (9-20) mg/dL Glucose 242 H (74-99) mg/dL POC Glucose (mg/dL) 475 H (70-110) mg/dL Alkaline Phosphatase 188 H (38-126) U/L Total Protein 5.7 L (6.3-8.2) g/dL Albumin 3.0 L (3.5-5.0) g/dL 01/26/24 Range/Units 16:45 RBC (4.30-5.90) m/uL Hgb (13.0-17.5) gm/dL Hct (39.0-53.0) % RDW (11.5-15.5) % Plt Count (150-450) k/uL Neutrophils # (1.3-7.7) k/uL Lymphocytes # (1.0-4.8) k/uL Sodium (137-145) mmol/L Chloride (98-107) mmol/L BUN (9-20) mg/dL Glucose (74-99) mg/dL POC Glucose (mg/dL) 540 H* (70-110) mg/dL Alkaline Phosphatase (38-126) U/L Total Protein (6.3-8.2) g/dL Albumin (3.5-5.0) g/dL Assessment and Plan Assessment: Pression: Seizures, likely a manifestation of DIRECTOR [employer] metastases, maintained on Keppra on outpatient basis. The patient also has an enlarging right occipital brain lesion measuring 2.1 cm in size with surrounding edema and 3 mm leftward midline shift. The patient is currently on a combination of Decadron and Keppra. N eurology on the case. Continues to have paralysis of the left upper and left lower extremity. Delirium/confusion, multifactorial. Acute hypoxic/hypercapnic respiratory failure, currently off the BiPAP and patient is on room air oxygen Metastatic DIRECTOR [employer]ISON lesion, right occipital, currently on Decadron, status post SBRT Left-sided weakness, rule out Anuj's paralysis following seizure. Rule out motor deficits related to metastatic brain lesion and vasogenic edema, clinically unchanged Metastatic squamous cell carcinoma of the lung versus metastatic from head and neck/tongue cancer from 2021, initiated on a combination of carboplatin Alimta and Keytruda on 12/06/2023 and the patient received only 1 cycle. History of tongue cancer Left upper lobe mass measuring 12 cm in size with extensive mediastinal lymphadenopathy consistent with metastatic disease Pulmonary embolism, small segmental, status post IVC filter placement History of Pleurx catheter insertion for a left-sided pleural effusion, pleural fluid cytology has been negative for malignancy, left lung is quite opacified due to a left upper lobe tumor, atelectasis and a left-sided pleural effusion. Diabetes mellitus with steroid-induced hyperglycemia Hypothyroidism Recommendation: Continue seizure medications Continue to intermittently drain the Pleurx catheter/left-sided pleural effusion Continue Decadron Continue Seroquel Consider insulin infusion for extremely high blood sugars Close monitoring for recurrent seizures patient is now on Keppra Continue IVC filter for his previous history of pulmonary embolism patient cannot have anticoagulation therapy because of his DIRECTOR PRISON metastasis Continue IV Protonix Patient is being seen by radiation oncology and medical oncology. Will follow as needed Time with Patient: Less than 30
[2024-01-26] MEDS: INSULIN NPH 100 UNIT/ML 10 ML VIAL SQ SCH (17:37)
--- NOTE | 2024-01-26 17:45 | P.PN ---
Subjective Progress Note Date: 01/26/24 Patient more tearful and agitated at today's visit. He is A&O x 3, and able to answer questions appropriately but is verbally aggressive and is paranoid. Na improving, 128 today. Counts stable. Afebrile, HDS Objective - Vital Signs Vital signs: Vital Signs Temp 98.3 F 01/26/24 09:35 Pulse 72 01/26/24 09:35 Resp 16 01/26/24 09:35 BP 127/60 01/26/24 09:35 Pulse Ox 99 01/26/24 09:35 FiO2 40 01/20/24 08:16 Intake & Output 01/25/24 01/26/24 01/26/24 18:59 06:59 18:59 Intake Total 648 280 138 Output Total 1350 900 0 Balance -702 -620 138 Weight 67.2 kg Intake: IV 50 40 20 Invasive Line 1 20 20 10 Invasive Line 2 10 Invasive Line 3 20 20 10 Oral 598 240 118 Output: Urine 1350 900 Stool 0 0 Other: Voiding Method External Catheter External Catheter External Catheter # Voids 1 - Constitutional General appearance: Present: average body habitus, mild distress - Respiratory Details: breathing is even and unlabored - Cardiovascular Details: skin warm and dry - Integumentary Integumentary: Absent: cyanotic, jaundiced - Psychiatric Psychiatric Comment(s): tearful, agitated, paranoid Psychiatric: Present: A&O x's 3 - Labs CBC & Chem 7: 01/26/24 07:45 01/26/24 07:45 Labs: Abnormal Lab Results - Last 24 Hours (Table) 01/25/24 01/25/24 01/26/24 Range/Units 16:41 20:02 02:15 RBC (4.30-5.90) m/uL Hgb (13.0-17.5) gm/dL Hct (39.0-53.0) % RDW (11.5-15.5) % Plt Count (150-450) k/uL Neutrophils # (1.3-7.7) k/uL Lymphocytes # (1.0-4.8) k/uL Sodium (137-145) mmol/L Chloride (98-107) mmol/L BUN (9-20) mg/dL Glucose (74-99) mg/dL POC Glucose (mg/dL) 205 H 443 H 225 H (70-110) mg/dL Alkaline Phosphatase (38-126) U/L Total Protein (6.3-8.2) g/dL Albumin (3.5-5.0) g/dL 01/26/24 01/26/24 01/26/24 Range/Units 06:04 07:45 07:45 RBC 3.90 L (4.30-5.90) m/uL Hgb 12.3 L (13.0-17.5) gm/dL Hct 38.3 L (39.0-53.0) % RDW 16.5 H (11.5-15.5) % Plt Count 565 H D (150-450) k/uL Neutrophils # 8.6 H (1.3-7.7) k/uL Lymphocytes # 0.4 L (1.0-4.8) k/uL Sodium 128 L (137-145) mmol/L Chloride 96 L (98-107) mmol/L BUN 31 H (9-20) mg/dL Glucose 242 H (74-99) mg/dL POC Glucose (mg/dL) 235 H (70-110) mg/dL Alkaline Phosphatase 188 H (38-126) U/L Total Protein 5.7 L (6.3-8.2) g/dL Albumin 3.0 L (3.5-5.0) g/dL 01/26/24 Range/Units 11:38 RBC (4.30-5.90) m/uL Hgb (13.0-17.5) gm/dL Hct (39.0-53.0) % RDW (11.5-15.5) % Plt Count (150-450) k/uL Neutrophils # (1.3-7.7) k/uL Lymphocytes # (1.0-4.8) k/uL Sodium (137-145) mmol/L Chloride (98-107) mmol/L BUN (9-20) mg/dL Glucose (74-99) mg/dL POC Glucose (mg/dL) 475 H (70-110) mg/dL Alkaline Phosphatase (38-126) U/L Total Protein (6.3-8.2) g/dL Albumin (3.5-5.0) g/dL Assessment and Plan (1) Left hemiparesis Current Visit: Yes Status: Acute Code(s): G81.94 - HEMIPLEGIA, UNSPECIFIED AFFECTING LEFT NONDOMINANT SIDE SNOMED Code(s): 668678415 (2) Metastasis to brain Current Visit: Yes Status: Acute Priority: High Code(s): C79.31 - SECONDARY MALIGNANT NEOPLASM OF BRAIN SNOMED Code(s): 40026032 (3) Squamous cell lung cancer Current Visit: Yes Status: Acute Priority: High Code(s): C34.90 - MALIGNANT NEOPLASM OF UNSP PART OF UNSP BRONCHUS OR LUNG SNOMED Code(s): 330898944 (4) Hyponatremia Current Visit: Yes Status: Acute Priority: High Code(s): E87.1 - HYPO- OSMOLALITY AND HYPONATREMIA SNOMED Code(s): 82708978 Plan: Left hemiparesis: The patient presented with new onset of the same. Differentials included new CVA, versus rebound vasogenic edema postradiation with postseizure Anuj's paralysis also considered a possibility. -The CT report had mentioned the possibility of progression of the brain mass, although the measured size was in the same range. Case was extensively discussed with the ER physician, CCM, and radiation oncology. The degree of midline shift was mild. It was subsequently determined by neurology that the left leg abnormality was actually chronic and stable. Radiation oncology reviewed his scans remotely, and determined that the size of the mass was stable or slightly less. -The patient was therefore placed back on higher dose of IV steroids to treat any component of rebound edema. He was admitted to the ICU, and is being followed by [facility], and neurology. -Repeat CT brain on 01/20 showing similar extensive vasogenic edema in the right occipital and parietal lobes. Possible slight increase in leftward midline shift -Brain MRI showing right parietal/occipital enhancing complex mass with vasogenic edema effacing the right lateral ventricle, now demonstrating some cystic components around the periphery. No CVA or new pathology noted -PT/OT consulted -Was on decadron 6mg q6hrs, with improvement in mentation and left sided weakness. However, pt mood is now more labile and is tearful and paranoid, as well as noted hyperglycemia. Mood changes could be r/t high dose steroids. Discussed case with rad onc, initially decreased decadron to 4mg q6hrs. Sx of emotional lability worse today, will decrease decadron to 4mg TID. May also be a component of hospital related delirium. Trying to avoid benzodiazapines so acute mentation and neuro changes can be identified. Zyprexa at bedtime has been added by admitting team, which could be helpful. Will continue to monitor Hyponatremia: -Possibly r/t SIADH from malignancy -Nephrology following -Continues PO sodium supplementation -Sodium slowly improving, 128 today Squamous cell lung cancer: The patient has had 1 cycle of systemic therapy. Treatment has been on hold due to various factors, as described in the HPI. This will be resumed once his acute problems are appropriately controlled and pt regains strength. Clinic f/u will be scheduled upon discharge to further discuss goals of care Hospital course and POC was discussed in detail with family at bedside today Doctor attests: I performed a history and physical examination of this patient, developed impression and plan of care. Discussed with dictator. I agree with dictators note, documented as a scribe.
[2024-01-26 20:50] LABS: Glucose,Whole Blood 292 mg/dL (70-110)
[2024-01-26] MEDS: OLANZapine 5 MG TAB PO SCH (21:00)
[2024-01-26] MEDS: dexAMETHasone 2 MG TAB PO SCH (21:00)
[2024-01-27 06:03] LABS: Glucose,Whole Blood 160 mg/dL (70-110)
[2024-01-27 07:27] LABS: African American GFR (CKD) >90 (>60 ml/min/1.73 sqM); Anion Gap 3 mmol/L; Blood Urea Nitrogen 19 mg/dL (9-20); Calcium 8.4 mg/dL (8.4-10.2); Carbon Dioxide 31 mmol/L (22-30); Chloride 95 mmol/L (98-107); Glucose 168 mg/dL (74-99); Magnesium 1.5 mg/dL (1.6-2.3); Non-African American GFR(CKD) >90 (>60 ml/min/1.73 sqM); Potassium 4.4 mmol/L (3.5-5.1); Sodium 129 mmol/L (137-145)
[2024-01-27] MEDS: MAGNESIUM OXIDE 400 MG TAB PO SCH (09:36)
--- NOTE | 2024-01-27 10:22 | P.PN ---
Subjective Progress Note Date: 01/26/24 Principal diagnosis: Seizure, brain metastases Patient seen Monday PM. Woken from sleep; did seem a bit confused at first. No headache or nausea. Able to move left arm and leg much better. Objective - Vital Signs Vital signs: Vital Signs Temp 98 F 01/27/24 08:00 Pulse 86 01/27/24 08:00 Resp 16 01/27/24 08:00 BP 121/63 01/27/24 08:00 Pulse Ox 96 01/27/24 08:00 FiO2 40 01/20/24 08:16 Intake & Output 01/26/24 01/27/24 01/27/24 18:59 06:59 18:59 Intake Total 394 980 Output Total 2700 1200 Balance -2306 -220 Weight 76.5 kg Intake: IV 40 20 Invasive Line 1 20 10 Invasive Line 3 20 10 Oral 354 960 Output: Urine 2700 1200 Stool 0 Other: Voiding Method External Catheter External Catheter # Bowel Movements 1 - Constitutional General appearance: Present: no acute distress - EENT Eyes: Present: PERRLA ENT: Present: hearing grossly normal - Neck Neck: Absent: lymphadenopathy - Respiratory Respiratory: bilateral: CTA - Cardiovascular Rhythm: regular - Integumentary Integumentary: Absent: calor, cellulitis - Neurologic Neurologic: Present: CNII-XII intact - Musculoskeletal Musculoskeletal: Present: left sided weakness (Improving, strength 4/5) - Psychiatric Psychiatric: Present: appropriate affect. Absent: A&O x's 3 - Labs CBC & Chem 7: 01/26/24 07:45 01/27/24 06:28 Labs: Abnormal Lab Results - Last 24 Hours (Table) 01/26/24 01/26/24 01/26/24 Range/Units 11:38 16:45 20:48 Sodium (137-145) mmol/L Chloride (98-107) mmol/L Carbon Dioxide (22-30) mmol/L Creatinine (0.66-1.25) mg/dL Glucose (74-99) mg/dL POC Glucose (mg/dL) 475 H 540 H* 292 H (70-110) mg/dL Magnesium (1.6-2.3) mg/dL 01/27/24 01/27/24 Range/Units 05:59 06:28 Sodium 129 L (137-145) mmol/L Chloride 95 L (98-107) mmol/L Carbon Dioxide 31 H (22-30) mmol/L Creatinine 0.65 L (0.66-1.25) mg/dL Glucose 168 H (74-99) mg/dL POC Glucose (mg/dL) 160 H (70-110) mg/dL Magnesium 1.5 L (1.6-2.3) mg/dL Assessment and Plan Assessment: The patient is a 63-year-old male with a history of a stage II (cT3, cN1, M0), 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 He underwent concurrent chemoradiation finishing on 05/11/2021. He was subsequently discovered to have a large left upper lung lesion with mediastinal adenopathy. Biopsy performed on 08/31/2023 was consistent with squamous cell carcinoma, P16+. He was started on chemo/immunotherapy and completed 1 cycle. He was hospitalized due to altered mental status and found to have a right occipital lobe brain metastasis. He underwent radiosurgery finishing on 01/16/24. He was hospitalized due to seizure and left hemiparesis. Plan: 1. Left hemiparesis: Improving; agree with decreasing Decadron to 4 mg TID. Patient able to move left arm/leg on command, but a bit sluggish. He has been intermittently confused over the past couple of days. This may represent incr eased edema from recent RT. Unlikely to have disease progression within a week of radiosurgery. Will have patient repeat imaging as outpatient. 2. Metastatic squamous cell carcinoma: Patient agreeable to d/c to rehab. Has not been able to do much systemic therapy due to repeat hospital stays - agrees he needs to get stronger. Continue PT. We will arrange for a follow-up within 1-2 weeks of discharge. Time with Patient: Less than 30
[2024-01-27] MEDS ORDERED: OLANZapine ODT 5 MG TAB PO PRN (10:27)
--- NOTE | 2024-01-27 10:32 | P.PN ---
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 Known left-sided weakness with left pupil dilatation. CT of the bra in demonstrated 2.1 cm lesion enlarging from prior with worsening vasogenic edema and left midline shift. Had 1 seizure with EMS. Initial vital signs were remarkable for tachycardia with heart rate of 102 and blood pressure of 184/117. Initial laboratory analysis was remarkable for white blood cell count 11.5, hemoglobin 12.7, platelets 488, sodium 128. At that time ABG showed a pH of 7.16 with a pCO2 of 85. Additionally patient underwent CTA of the head and neck which showed no significant stenosis. Chest x-ray showed increasing interstitial density concerning for pulmonary vascular congestion with ongoing volume loss and extensive pleural opacity throughout the left hemithorax with l eft basilar Pleurx catheter in place. Patient was admitted to the ICU with breakthrough seizure. Patient had 1 seizure with EMS and 2 seizures in the emergency department the second requiring the use of Ativan to abort the seizure. Neurology and critical care were consulted. Consideration was made for transfer but it was found that there is no indication for medical transfer. Patient was started on Decadron 6 mg IV every 6 hours and Keppra 750 mg IV every 12 hours. Was started on BiPAP due to the ABG results which was weaned off by 01/19, was briefly on an insulin gtt. sodium noted to be downtrending. was placed on hypertonic briefly however transitioned to salt tablets/fluid restriction. Na level had remained stable in the 120 range. 01/26: noted to be agitated with labile mood yesterday. Did receive a dose of IM zyprexa yeterday afternoon and has been started on zyprexa nightly. blood glucose adequetely controlled with NPH. Objective - Vital Signs Vital signs: Vital Signs Temp 98 F 01/27/24 08:00 Pulse 86 01/27/24 08:00 Resp 16 01/27/24 08:00 BP 121/63 01/27/24 08:00 Pulse Ox 96 01/27/24 08:00 FiO2 40 01/20/24 08:16 Intake & Output 01/26/24 01/27/24 01/27/24 18:59 06:59 18:59 Intake Total 394 980 Output Total 2700 1200 Balance -2306 -220 Weight 76.5 kg Intake: IV 40 20 Invasive Line 1 20 10 Invasive Line 3 20 10 Oral [id number] Output: Urine 2700 1200 Stool 0 Other: Voiding Method External Catheter External Catheter # Bowel Movements 1 - Exam General: non toxic, no distress, male appears stated age, male. sittin in chair. Derm: warm, dry Head: atraumatic, normocephalic, symmetric Eyes: EOMI, no lid lag, anicteric sclera, pupils equal round reactive to light ENT: Nose and ears atraumatic, no thrush, no pharyngeal erythema Neck: No thyromegaly, no cervical lymphadenopathy, trachea midline, supple Mouth: no lip lesion, mucus membranes moist Cardiovascular: S1S2 reg, no murmur, positive posterior tibial pulse bilateral, no edema, capillary refill less than 2 seconds Lungs: clear to ascultation bilateral. there is a pleurex catheter on left anterior chest wall. Abdominal: soft, nontender to palpation, no guarding, no appreciable org anomegaly, normal bowel sounds Ext: no ble edema Neuro: LUE and LLE motor strength 4/5+. RUE and RLE motor strength 5/5. gait not tested Psych: Calm and cooperative - Labs CBC & Chem 7: 01/26/24 07:45 01/27/24 06:28 Labs: Abnormal Lab Results - Last 24 Hours (Table) 01/26/24 01/26/24 01/26/24 Range/Units 11:38 16:45 20:48 Sodium (137-145) mmol/L Chloride (98-107) mmol/L Carbon Dioxide (22-30) mmol/L Creatinine (0.66-1.25) mg/dL Glucose (74-99) mg/dL POC Glucose (mg/dL) 475 H 540 H* 292 H (70-110) mg/dL Magnesium (1.6-2.3) mg/dL 01/27/24 01/27/24 Range/Units 05:59 06:28 Sodium 129 L (137-145) mmol/L Chloride 95 L (98-107) mmol/L Carbon Dioxide 31 H (22-30) mmol/L Creatinine 0.65 L (0.66-1.25) mg/dL Glucose 168 H (74-99) mg/dL POC Glucose (mg/dL) 160 H (70-110) mg/dL Magnesium 1.5 L (1.6-2.3) mg/dL Assessment and Plan Assessment: #) Breakthrough seizure. This is likely 2/2 to right pareital occiptal brain mass with vasogenic edema effacing the right lateral ventricle. Continue PO keppra 750 mg BID as antiepileptic. seizure precautions. no driving for 6 month s. Continue dexamethasone 4 mg q6hr for vasogenic edema. Continue pantoprazole 40 mg daily as stress ulcer prophylaxis. Continue zyprexa nightly to help with agitation. 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 ?metastatic from left tongue. #) Hyponatremia - SIADH vs. less likely cerebral salt wasting. Continue fluid restriction at 1500 cc daily. Previously on 3% on 01/21. Given noted dose of t olvaptan on January 24. Continue sodium chloride 1 g tablets. d/c fludrocortisone, less concerned about cerebral salt wasting #) Eurthyroid sick syndrome- continue tsh in 4-6 weeks outpatient. Continue home levothryoxine 176 mgcg daily #) Dm2 with steroid induced hyperglycemia. a1c of 8.2%. NPH 15 units twice daily with sliding scale insulin. Given dexamethasone has been decreased from 6 mg to 4 mg q6hr, his insulin requirements have been adjusted as such #) Anemia, likely multifactorial, continue to monitor hgb daily #) Acute hypercapnic respiratory failure, resolved #) advanced care planning- code status changed from full code to DNR, ok for intubation/mechanical ventilation. agreeable on 01/23 evening DVT Ppx: SCds. s/p ivc filter. hold pharmacological dvt ppx for now given brain mets Anticipate discharge date: Tomorrow to [facility], d/c bedsitter today Anticipated discharge place: SNF Time with Patient: Greater than 30
[2024-01-27 11:41] LABS: Glucose,Whole Blood >600 mg/dL (70-110)
--- NOTE | 2024-01-27 12:23 | P.PN ---
Subjective Progress Note Date: 01/27/24 Patient is seen in follow-up for hyponatremia. Has received Samsca. On salt tabs and oral Lasix as well. Sodium level 129. Oral intake is good. Vital signs are stable. General: No acute distress. HEENT: Head exam is unremarkable. LUNGS: No audible rhonchi or wheezes. HEART: Rate and Rhythm are regular. ABDOMEN: Nontender. EXTREMITITES: Trace edema. Objective - Vital Signs Vital signs: Vital Signs Temp 98 F 01/27/24 08:00 Pulse 86 01/27/24 08:00 Resp 16 01/27/24 08:00 BP 121/63 01/27/24 08:00 Pulse Ox 96 01/27/24 08:00 FiO2 40 01/20/24 08:16 Intake & Output 01/26/24 01/27/24 01/27/24 18:59 06:59 18:59 Intake Total 394 980 Output Total 2700 1200 Balance -2306 -220 Weight 76.5 kg Intake: IV 40 20 Invasive Line 1 20 10 Invasive Line 3 20 10 Oral [id number] Output: Urine 2700 1200 Stool 0 Other: Voiding Method External Catheter External Catheter # Bowel Movements 1 - Labs CBC & Chem 7: 01/26/24 07:45 01/27/24 06:28 Labs: Abnormal Lab Results - Last 24 Hours (Table) 01/26/24 01/26/24 01/26/24 Range/Units 11:38 16:45 20:48 Sodium (137-145) mmol/L Chloride (98-107) mmol/L Carbon Dioxide (22-30) mmol/L Creatinine (0.66-1.25) mg/dL Glucose (74-99) mg/dL POC Glucose (mg/dL) 475 H 540 H* 292 H (70-110) mg/dL Magnesium (1.6-2.3) mg/dL 01/27/24 01/27/24 Range/Units 05:59 06:28 Sodium 129 L (137-145) mmol/L Chloride 95 L (98-107) mmol/L Carbon Dioxide 31 H (22-30) mmol/L Creatinine 0.65 L (0.66-1.25) mg/dL Glucose 168 H (74-99) mg/dL POC Glucose (mg/dL) 160 H (70-110) mg/dL Magnesium 1.5 L (1.6-2.3) mg/dL Assessment and Plan Assessment: 1. Hyponatremia. 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 Cerebral salt wasting less likely as patient does not appear hypovolemic. Sodium level 129 this morning. It has been in the range of 124-128 since November 2023. Patient received IV fluids and sodium did improve from 122-125 but then dropped to 124. Urine sodium 147 and urine osmolality 529. These were drawn after the patient had received IV fluids. TSH elevated at 10.3 but free T4 is normal. Cortisol level low at 2.6. Patient is on Decadron. Fludrocortisone was also added January 23, 2024. Also receiving Samsca this admission. Case was discussed with primary team as well as neurology. 2. 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 Maintained on chemotherapy and radiation. Vasogenic edema in the right occipital and parietal lobes noted on brain CT reflective of metastatic disease. Neurology and oncology following. 3. Diabetes mellitus. 4. Hypomagnesemia from poor intake and diuresis. Being replaced. Better. Plan: Maintain fluid restriction. Maintain sodium chloride tabs. Maintain Lasix. Blood glucose control.
--- NOTE | 2024-01-27 15:43 | P.PN ---
Subjective Progress Note Date: 01/27/24 Principal diagnosis: Seizures secondary to [employer]M [employer]IDE[employer] metastasis This is a 64-year-old male patient was admitted to the intensive care unit for recurrent seizures. 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 Subsequently, he was lost to follow-up and he presented back to us with a large left upper lobe mass and I performed bronchoscopy on this patient back in August 2023 and the findings were consistent with squamous cell carcinoma. The PET scan from September 2023 showed left upper lobe mass, PET avid in addition to metastatic activity involving the mediastinum and the right supraclavicular and bilateral lymph node lymphadenopathy in addition to left inferior pleural space FDG uptake and metastatic mediastinal lymphadenopathy. The patient was started on systemic treatment including a combination of carboplatinum, Alimta and Keytruda. While taking his second cycle of treatment, on 12/15/2023, the patient was noted to being have increased shortness of breath. He was sent to the emergency department and a CT angiogram of the chest was done and the patient was found to have small segmental branch pulmonary embolism involving the right lower lobe. Minimal overall clot burden. There was new moderate to large left-sided effusion along with atelectatic collapse of the left lower lobe. New moderate right-sided pleural effusion with adjacent atelectasis. There was also pleural nodularity in the posterior left upper lobe, additional disease progression with new pericardial lymphadenopathy measuring up to 2.1 cm in size and there was also a large left upper lobe mass encasing the left hilum that was measuring 11.9 cm in size with metastatic mediastinal and hilar l ymphadenopathy and the patient had shown some partial response as the patient was receiving systemic chemotherapy. The echocardiogram that was done at that time on 12/15/2023 showed preserved LV function, normal RV size and function. Venous Doppler of the lower extremity that was done on 12/16/2023 showed no evidence of any DVT. Noted, the patient had a Pleurx catheter insertion on 12/19/2023 into the left pleural space and the fluid cytology was essentially negative for carcinoma or malignancy. The patient was discharged home and anticoagulation with Eliquis. Readmitted to the hospital on 12/28/2023 with altered mentation. The patient had unresponsiveness and new onset seizures. MRI of the brain was done and the patient was found to have right parietal/occipital mass with vasogenic edema. The patient was started on Keppra and Decadron. Anticoagulation was stopped and the patient was given an IVC filter on 01/02/2024 and the patient was discharged home on 01/03/2024 and he was advised to continue Decadron 4 mg p.o. 3 times daily and Keppra 750 mg p.o. twice daily. The patient was also seen by radiation oncology. Received SBRT to his brain, a total of 3 sessions earlier this week. The patient came into the emergency department today with strokelike symptoms and left-sided weakness. The patient also had altered mentation. His last known normal was unclear but this was sometime yesterday night. The patient was experiencing left-sided weakness, facial droop and dysarthria. He also had developed a dilated left pupil which was noted few weeks back. CT scan of the brain was done in Emergency Department and the patient was found to have a 2 point centimeter lesion that had been enlarging compared to the previous CAT scan of the brain that was done on 12/28/2023. The patient had hyperdense right occipital lobe 2.1 cm lesion with increasing surrounding vasogenic edema and a 3 mm left shift from midline. The CTA of the brain was also done and it showed no evidence of dissection of the cervical or internal carotid arteries or vertebral arteries. No evidence of any high-grade stenosis intracranially. There was a enhancing right occipital lobe mass with surrounding vasogenic edema. In the emergency, the patient had also 2 episodes of seizures. The case was discussed with outside facilities regarding transfer and was found that there was no indication for this medical transfer. The patient was started on Decadron 6 mg IV every 6 hours and the patient was kept on Keppra 750 mg IV every 12 hours. He was admitted to the intensive care unit for further management. He seems to be quite obtunded at this point in time. Blood gas was also done in the ICU and the patient was found to have a pH of 7.16 with a pCO2 of 85 and a pO2 of 70 and this was done by the patient being in 60s of oxygen by nasal cannula. Accordingly, the patient was placed on a BiPAP. Chest x-ray has not been done yet. The white cell count is 11.5 with a hemoglobin 12.7 and platelet count of 488. BUN 25 L and 0.6 and a sodium levels at 128. Blood sugar is at 454. Norm al UA. Urine drug screen is positive for marijuana and opiates. 01/20/2024, the patient is much more awake compared to yesterday. The patient is unable to move his left upper and left lower extremity. He is able to wiggle his toes and his fingers on the left. Mental status is improved. No further seizure activity has been noted. The patient remains on a combination of Keppra and Decadron. Keppra is 500 mg IV every 12 hours and the patient is also on Decadron at 6 mg IV every 6 hours. The patient was further taken off the BiPAP. He is currently on 2 L of oxygen by nasal cannula. Pulse ox is 98%. Morning blood work shows a WBC count of 8.9, hemoglobin 10.9 and platelet count of 378. BUN is 19 with a creatinine of 0.49 and a sodium levels at 133. He does have a Pleurx catheter in his left chest and a total of 100 cc of pleural fluid was evacuated this morning. The follow-up chest x-ray shows some limited improvement in aeration of the left lung base. . On today's evaluation of 01/21/2024, the patient is free of any seizures. He has not had any seizures over the past 24 hours. Remains on Keppra. Remains on Decadron. He is a bit confused and delirious. Trying to get out of bed. He has a sitter at the bedside. Left side remains weak although there is some li mited improving motor function left upper extremity on today's evaluation. The patient has no signs of any respiratory distress. The white cell count is at 9.1 with a hemoglobin 11.7 and a platelet count of 447. BUN is 23 with a creatinine of 0.6. Sodium level is at 126. The patient is drinking liquids. No other significant events overnight. He remains on Levemir insulin 8 units twice daily and sliding scale insulin coverage. Patient evaluated today on 01/22/2024, patient seems to be very comfortable, not in any distress, he is on few liters nasal cannula, and intermittently on BiPAP 01/24/40%, he was just started on 3% saline for his hyponatremia with a sodium of 123, patient also is on Decadron at 6 mg IV push every 6 hours for his brain metastasis. His last seizure was 01/18, patient has metastatic head and neck cancer with metastasis to the lungs and to the brain. He also has a left Pleurx catheter in place for recurrent left-sided pleural effusion CT of the brain showed right occipital mass which seems to be quite large. Patient is being followed by nephrology as well as by hematology/oncology. Receiving chemotherapy as well as immunotherapy. Pulmonary turk he does not seem to be in distress, seems to be fairly comfortable, he does have left-sided paralysis WBC count is 6.6 hemoglobin 12.3 sodium is 123 potassium 4.6. Renal profile is normal Patient was evaluated today on 01/23/2024, remains in the ICU, however the patient has had no seizures in the last few days. Being followed by many consultants including oncology and radiation oncology patient seems to be doing fairly well, does not seem to be in any distress. He is on room air, sodium remains low at 124, being addressed by nephrology. Patient had no seizure activity. And he seems to have chronic hyponatremia. 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 Due blood sugar today is 439, hence his true sodium is actually slightly in the 129 range Seen today on 01/24/2024, patient is now on medical floor, not in the ICU, no major events over the last 24 hours, and no seizures. Patient is on room air, comfortable, not in any distress, O2 saturation is 99% on room air, patient is hemodynamically stable WBC count is 8.9 hemoglobin 13.4 sodium remains low at 123 blood sugar is 230 Seen today on 01/25/2024, patient is doing well, no active pulmonary issues, on nasal cannula, not in distress, no seizure activity, being followed by many consultants including neurology, radiation oncology, and medical oncology. Blood sugar is running quite high, patient may benefit from insulin drip, however this is being addressed by the admitting physician/hospitalist. Patient was seen today on 01/26/2024, patient is doing well, no major pulmonary issues at this point, no further seizures. Patient is sitting at the bedside chair, eating on his own. WBC count is 9.6 hemoglobin 12.3 sodium is 128 his blood sugar remains high, I believe the patient may benefit from insulin infusion for his elevated blood sugars that is being addressed by the admitting physician. Reevaluate today on 01/27/2024, patient seems to be doing fairly well, asymptomatic, sugars seem to be better controlled, patient is sitting in a bedside chair eating, he is a bit confused, but overall he is doing quite well, and better than expected during his [employer] metastasis. No further seizures patient was seen by radiation oncology for his metastatic disease to the brain, felt that the patient is improving with Decadron, able to move left arm and left lower extremity but a bit sluggish. Patient is known to have history of metastatic squamous cell carcinoma to the brain patient received Zyprexa yesterday for agitations. And again his blood sugars are better controlled with insulin Levemir and NovoLog insulin. Objective - Vital Signs Vital signs: Vital Signs Temp 98 F 01/27/24 08:00 Pulse 110 H 01/27/24 12:00 Resp 16 01/27/24 12:00 BP 114/74 01/27/24 12:00 Pulse Ox 98 01/27/24 12:00 FiO2 40 01/20/24 08:16 Intake & Output 01/26/24 01/27/24 01/27/24 18:59 06:59 18:59 Intake Total 394 980 Output Total 2700 1200 700 Balance -2306 -220 -700 Weight 76.5 kg Intake: IV 40 20 Invasive Line 1 20 10 Invasive Line 3 20 10 Oral [id number] Output: Urine 2700 1200 700 Stool 0 0 Other: Voiding Method External Catheter External Catheter External Catheter # Bowel Movements 1 - Exam GENERAL EXAM: Revealed a 63-year-old white male in no distress HEAD: Normocephalic. EYES: Dilated left pupil NOSE: Clear with pink turbinates. THROAT: No erythema or exudates. NECK: No masses, no JVD. CHEST: No chest wall deformity. LUNGS: Equal air entry with bibasilar crackles, left greater than right, diminished left lung base. CVS: S1 and S2 normal with no audible murmur, regular rhythm. ABDOMEN: No hepatosplenomegaly, normal bowel sounds, no guarding or rigidity. SKIN: No rashes CENTRAL NERVOUS SYSTEM: Left-sided weakness, dilated left pupil, free of any seizures. . Awake and alert and communicating. Left-sided paralysis is unchanged. EXTREMITIES: There is no peripheral edema. No clubbing, no cyanosis. Peripheral pulses are intact. - Labs CBC & Chem 7: 01/26/24 07:45 12/07/24 12:02 Labs: Abnormal Lab Results - Last 24 Hours (Table) 01/26/24 01/26/24 01/27/24 Range/Units 16:45 20:48 05:59 Sodium (137-145) mmol/L Chloride (98-107) mmol/L Carbon Dioxide (22-30) mmol/L Creatinine (0.66-1.25) mg/dL Glucose (74-99) mg/dL POC Glucose (mg/dL) 540 H* 292 H 160 H (70-110) mg/dL Magnesium (1.6-2.3) mg/dL 01/27/24 01/27/24 01/27/24 Range/Units 06:28 11:39 12:02 Sodium 129 L (137-145) mmol/L Chloride 95 L (98-107) mmol/L Carbon Dioxide 31 H (22-30) mmol/L Creatinine 0.65 L (0.66-1.25) mg/dL Glucose 168 H 485 H (74-99) mg/dL POC Glucose (mg/dL) >600 H* (70-110) mg/dL Magnesium 1.5 L (1.6-2.3) mg/dL Assessment and Plan Assessment: Pression: Seizures, likely a manifestation of [employer] metastases, maintained on Keppra on outpatient basis. The patient also has an enlarging right occipital brain lesion measuring 2.1 cm in size with surrounding edema and 3 mm leftward midline shift. The patient is currently on a combination of Decadron and Keppra. Neurology on the case. Continues to have paralysis of the left upper and left lower extremity. Delirium/confusion, multifactorial. Acute hypoxic/hypercapnic respiratory failure, currently off the BiPAP and patient is on room air oxygen Metastatic [employer] lesion, right occipital, currently on Decadron, status post SBRT Left-sided weakness, rule out Anuj's paralysis following seizure. Rule out motor deficits related to metastatic brain lesion and vasogenic edema, clinically unchanged Metastatic squamous cell carcinoma of the lung versus metastatic from head and neck/tongue cancer from 2021, initiated on a combination of carboplatin Alimta and Keytruda on 12/06/2023 and the patient received only 1 cycle. History of tongue cancer Left upper lobe mass measuring 12 cm in size with extensive mediastinal lymphadenopathy consistent with metastatic disease Pulmonary embolism, small segmental, status post IVC filter placement History of Pleurx catheter insertion for a left-sided pleural effusion, pleural fluid cytology has been negative for malignancy, left lung is quite opacified due to a left upper lobe tumor, atelectasis and a left-sided pleural effusion. Diabetes mellitus with steroid-induced hyperglycemia Hypothyroidism Recommendation: Continue seizure medications Continue to intermittently drain the Pleurx catheter/left-sided pleural effusion Continue Decadron Continue Seroquel Consider insulin infusion for extremely high blood sugars Close monitoring for recurrent seizures patient is now on Keppra Continue IVC filter for his previous history of pulmonary embolism patient cannot have anticoagulation therapy because of his [employer] metastasis Continue IV Protonix Patient is being seen by radiation oncology and medical oncology. Will follow as needed Time with Patient: Less than 30
[2024-01-27 17:21] LABS: Glucose,Whole Blood 188 mg/dL (70-110)
[2024-01-27 20:23] LABS: Glucose,Whole Blood 224 mg/dL (70-110)
[2024-01-27] MEDS: INSULIN NPH 100 UNIT/ML 10 ML VIAL SQ SCH (22:38)
[2024-01-27] MEDS: MICONAZOLE NITRATE 2% CREAM 14 GM TUBE TOPICAL SCH (22:40)
[2024-01-27 23:07] LABS: Glucose,Whole Blood 323 mg/dL (70-110)
[2024-01-28 07:12] LABS: Glucose,Whole Blood 268 mg/dL (70-110)
[2024-01-28 08:36] VITALS: TEMP 97.3
[2024-01-28 09:27] LABS: HCT 34.5 % (39.6-50.0); HGB 11.6 g/dL (13.0-17.0); MCH 31.9 pg (27.0-32.0); MCHC 33.6 g/dL (32.0-37.0); MCV 94.8 FL (80.0-97.0); Mean Platelet Volume 8.6 FL (9.5-12.2); NRBC Per 100 WBC 0 X 10*3/uL (0.00-0.01); Platelet Count 480 X 10*3/uL (140-440); RBC 3.64 X 10*6/uL (4.40-5.60); RDW 17.3 % (11.5-14.5); WBC 10.28 X 10*3/uL (4.50-10.00)
--- NOTE | 2024-01-28 10:29 | P.PN ---
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 Known left-sided weakness with left pupil dilatation. CT of the brain demonstrated 2.1 cm lesion enlarging from prior with worsening vasogenic edema and left midline shift. Had 1 seizure with EMS. Initial vital signs were remarkable for tachycardia with heart rate of 102 and blood pressure of 184/117. Initial laboratory analysis was remarkable for white blood cell count 11.5, hemoglobin 12.7, platelets 488, sodium 128. At that time ABG showed a pH of 7.16 with a pCO2 of 85. Additionally patient underwent CTA of the head and neck which showed no significant stenosis. Chest x-ray showed increasing interstitial density concerning for pulmonary vascular congestion with ongoing v olume loss and extensive pleural opacity throughout the left hemithorax with left basilar Pleurx catheter in place. Patient was admitted to the ICU with breakthrough seizure. Patient had 1 seizure with EMS and 2 seizures in the emergency department the second requiring the use of Ativan to abort the seizure. Neurology and critical care were consulted. Consideration was made for transfer but it was found that there is no indication for medical transfer. Patient was started on Decadron 6 mg IV every 6 hours and Keppra 750 mg IV every 12 hours. Was started on BiPAP due to the ABG results which was weaned off by 01/19, was briefly on an insulin gtt. sodium noted to be downtrending. was plac ed on hypertonic briefly however transitioned to salt tablets/fluid restriction. Na level had remained stable in the 120 range. 01/26: noted to be agitated with labile mood yesterday. Did receive a dose of IM zyprexa yeterday afternoon and has been started on zyprexa nightly. blood glu cose adequetely controlled with NPH. - Exam General: non toxic, no distress, male appears stated age, male. sittin in chair. Derm: warm, dry Head: atraumatic, normocephalic, symmetric Eyes: EOMI, no lid lag, anicteric sclera, pupils equal round reactive to light ENT: Nose and ears atraumatic, no thrush, no pharyngeal erythema Neck: No thyromegaly, no cervical lymphadenopathy, trachea midline, supple Mouth: no lip lesion, mucus membranes moist Cardiovascular: S1S2 reg, no murmur, positive posterior tibial pulse bilateral, no edema, capillary refill less than 2 seconds Lungs: clear to ascultation bilateral. there is a pleurex catheter on left anterior chest wall. Abdominal: soft, nontender to palpation, no guarding, no appreciable organomegaly, normal bowel sounds Ext: no ble edema Neuro: LUE and LLE motor strength 4/5+. RUE and RLE motor strength 5/5. gait not tested Psych: Calm and cooperative Objective - Vital Signs Vital signs: Vital Signs Temp 97.3 F L 01/28/24 07:13 Pulse 79 01/28/24 07:13 Resp 16 01/28/24 07:13 BP 118/69 01/28/24 07:13 Pulse Ox 99 01/28/24 07:13 FiO2 40 01/20/24 08:16 Intake & Output 01/27/24 01/28/24 01/28/24 18:59 06:59 18:59 Intake Total 240 240 Output Total 700 500 Balance -460 240 -500 Weight 60 kg Intake: Oral 240 240 Output: Urine 700 500 Stool 0 Other: Voiding Method External Catheter # Voids 2 1 # Bowel Movements 1 - Labs CBC & Chem 7: 01/28/24 02:56 01/27/24 12:02 Labs: Abnormal Lab Results - Last 24 Hours (Table) 01/27/24 01/27/24 01/27/24 Range/Units 11:39 12:02 17:19 WBC (4.50-10.00) X 10*3/uL RBC (4.40-5.60) X 10*6/uL Hgb (13.0-17.0) g/dL Hct (39.6-50.0) % RDW (11.5-14.5) % Plt Count (140-440) X 10*3/uL MPV (9.5-12.2) FL Glucose 485 H (74-99) mg/dL POC Glucose (mg/dL) >600 H* 188 H (70-110) mg/dL 01/27/24 01/27/24 01/28/24 Range/Units 20:21 23:06 02:56 WBC 10.28 H (4.50-10.00) X 10*3/uL RBC 3.64 L (4.40-5.60) X 10*6/uL Hgb 11.6 L (13.0-17.0) g/dL Hct 34.5 L (39.6-50.0) % RDW 17.3 H (11.5-14.5) % Plt Count 480 H (140-440) X 10*3/uL MPV 8.6 L (9.5-12.2) FL Glucose (74-99) mg/dL POC Glucose (mg/dL) 224 H 323 H (70-110) mg/dL 01/28/24 Range/Units 07:10 WBC (4.50-10.00) X 10*3/uL RBC (4.40-5.60) X 10*6/uL Hgb (13.0-17.0) g/dL Hct (39.6-50.0) % RDW (11.5-14.5) % Plt Count (140-440) X 10*3/uL MPV (9.5-12.2) FL Glucose (74-99) mg/dL POC Glucose (mg/dL) 268 H (70-110) mg/dL Assessment and Plan Assessment: #) Breakthrough seizure. This is likely 2/2 to right pareital occiptal brain mass with vasogenic edema effacing the right lateral ventricle. Continue PO keppra 750 mg BID as antiepileptic. seizure precautions. no driving for 6 months. Continue dexamethasone 4 mg q6hr for vasogenic edema. Continue pantoprazole 40 mg daily as stress ulcer prophylaxis. Continue zyprexa nightly to help with agitation. 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 ?metastatic from left tongue. #) Hyponatremia - SIADH vs. less likely cerebral salt wasting. Previously on 3% on 01/21. Given noted dose of tolvaptan on January 24. Continue sodium chloride 1 g tablets. d/c fludrocortisone, less concerned about cerebral salt wasting #) Eurthyroid sick syndrome- continue tsh in 4-6 weeks outpatient. Continue home levothryoxine 176 mgcg daily #) Dm2 with steroid induced hyperglycemia. a1c of 8.2%. NPH 15 units twice daily with sliding scale insulin. Given dexamethasone has been decreased from 6 mg to 4 mg q6hr, his insulin requirements have been adjusted as such #) Anemia, likely multifactorial, continue to monitor hgb daily #) Acute hypercapnic respiratory failure, resolved #) advanced care planning- code status changed from full code to DNR, ok for intubation/mechanical ventilation. agreeable on 01/23 evening 01/27 Patient seen and examined at bedside Frustrated today regarding his fluid restriction Will discontinue fluid restriction Continue to monitor BMP daily Continue seizure precautions Continue steroids for parietal lobe lesion with vasogenic edema Continue Protonix for GI prophylaxis Rest of management unchanged DVT Ppx: SCds. s/p ivc filter. hold pharmacological dvt ppx for now given brain mets Anticipate discharge date: Tomorrow to [facility], d/c bedsitter today Anticipated discharge place: SNF Time with Patient: Greater than 30
[2024-01-28 10:40] LABS: ALT 52 U/L (10-49); AST 37 U/L (14-35); Albumin 3.1 g/dL (3.8-4.9); Albumin/Globulin Ratio 1.35 Ratio (1.60-3.17); Alkaline Phosphatase 158 U/L (41-126); BUN/Creat Ratio 27.86 Ratio (12.00-20.00); Blood Urea Nitrogen 19.5 mg/dL (9.0-27.0); Calcium 8.5 mg/dL (8.7-10.3); Carbon Dioxide 25.7 mmol/L (21.6-31.8); Chloride 95 mmol/L (96-109); Globulin 2.3 g/dL (1.6-3.3); Glucose 262 mg/dL (70-110); Magnesium 1.9 mg/dL (1.5-2.4); Potassium 4.6 mmol/L (3.5-5.5); Sodium 131 mmol/L (135-145); Total Bilirubin 0.3 mg/dL (0.3-1.2); Total Protein 5.4 g/dL (6.2-8.2)
[2024-01-28 11:21] LABS: Basophils # (A) 0.04 X 10*3/uL (0.00-0.10); Basophils % (A) 0.4 %; Eosinophils # (A) 0.02 X 10*3/uL (0.04-0.35); Eosinophils % (A) 0.2 %; Lymphocytes % (A) 4.9 %; Monocytes # (A) 0.79 X 10*3/uL (0.20-1.00); Monocytes % (A) 7.7 %; Neutrophils # (A) 8.68 X 10*3/uL (1.80-7.70); Neutrophils % (A) 84.4 %
--- NOTE | 2024-01-28 11:57 | P.PN ---
Subjective Progress Note Date: 01/28/24 Patient is seen in follow-up for hyponatremia. Has received Samsca. On salt tabs and oral Lasix as well. Sodium level 131. Oral intake is good. Wants to go home. Vital signs are stable. General: No acute distress. HEENT: Head exam is unremarkable. LUNGS: No audible rhonchi or wheezes. HEART: Rate and Rhythm are regular. ABDOMEN: Nontender. EXTREMITITES: Trace edema. Objective - Vital Signs Vital signs: Vital Signs Temp 97.3 F L 01/28/24 07:13 Pulse 79 01/28/24 07:13 Resp 16 01/28/24 07:13 BP 118/69 01/28/24 07:13 Pulse Ox 99 01/28/24 07:13 FiO2 40 01/20/24 08:16 Intake & Output 01/27/24 01/28/24 01/28/24 18:59 06:59 18:59 Intake Total 240 240 Output Total 700 500 Balance -460 240 -500 Weight 60 kg Intake: Oral 240 240 Output: Urine 700 500 Stool 0 Other: Voiding Method External Catheter # Voids 2 1 # Bowel Movements 1 - Labs CBC & Chem 7: 01/28/24 02:56 01/28/24 02:56 Labs: Abnormal Lab Results - Last 24 Hours (Table) 01/27/24 01/27/24 01/27/24 Range/Units 11:39 12:02 17:19 WBC (4.50-10.00) X 10*3/uL RBC (4.40-5.60) X 10*6/uL Hgb (13.0-17.0) g/dL Hct (39.6-50.0) % RDW (11.5-14.5) % Plt Count (140-440) X 10*3/uL MPV (9.5-12.2) FL Glucose 485 H (74-99) mg/dL POC Glucose (mg/dL) >600 H* 188 H (70-110) mg/dL 01/27/24 01/27/24 01/28/24 Range/Units 20:21 23:06 02:56 WBC 10.28 H (4.50-10.00) X 10*3/uL RBC 3.64 L (4.40-5.60) X 10*6/uL Hgb 11.6 L (13.0-17.0) g/dL Hct 34.5 L (39.6-50.0) % RDW 17.3 H (11.5-14.5) % Plt Count 480 H (140-440) X 10*3/uL MPV 8.6 L (9.5-12.2) FL Glucose (74-99) mg/dL POC Glucose (mg/dL) 224 H 323 H (70-110) mg/dL 01/28/24 Range/Units 07:10 WBC (4.50-10.00) X 10*3/uL RBC (4.40-5.60) X 10*6/uL Hgb (13.0-17.0) g/dL Hct (39.6-50.0) % RDW (11.5-14.5) % Plt Count (140-440) X 10*3/uL MPV (9.5-12.2) FL Glucose (74-99) mg/dL POC Glucose (mg/dL) 268 H (70-110) mg/dL Assessment and Plan Assessment: 1. Hyponatremia. 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 Cerebr al salt wasting less likely as patient does not appear hypovolemic. Sodium level 131 this morning. It has been in the range of 124-128 since November 2023. Patient received IV fluids and sodium did improve from 122-125 but then dropped to 124. Urine sodium 147 and urine osmolality 529. These were drawn after the patient had received IV fluids. TSH elevated at 10.3 but free T4 is normal. Cortisol level low at 2.6. Patient is on Decadron. Fludrocortisone was also added January 23, 2024. Also receiving Samsca this admission. Case was discussed with primary team as well as neurology. 2. 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 Maintained on chemotherapy and radiation. Vasogenic edema in the right occipital and parietal lobes noted on brain CT reflective of metastatic disease. Neurology and oncology following. 3. Diabetes mellitus. 4. Hypomagnesemia from poor intake and diuresis. Being replaced. Better. Plan: Maintain fluid restriction. Maintain sodium chloride tabs. Maintain Lasix. Blood glucose control. Clear for discharge
[2024-01-28 12:08] LABS: Glucose,Whole Blood 386 mg/dL (70-110)
[2024-01-28 14:16] VITALS: BP 144/86; PULSE 88; RESP 18
--- NOTE | 2024-01-28 17:41 | P.DS ---
Providers Date of admission: 01/19/24 15:01 Attending physician: Yue Humphrey MD Consults: 01/19/24 13:49 Consult Physician Urgent Consulting Provider: Bentley Roblero Consult Reason/Comments: neck cancer with metastasis to brain with vasogenic edema Do you want consulting provider notified?: Yes Consult Physician Urgent Consulting Provider: Chano Danielle Consult Reason/Comments: code stroke, vasogenic edema from intracranial malignancy, seizure Do you want consulting provider notified?: Already Contacted 01/19/24 15:37 Consult Physician Urgent Consulting Provider: Alonso Wright Consult Reason/Comments: seizure, brain mass, vasogenic edema, cva Do you want consulting provider notified?: Already Contacted 01/21/24 18:43 Consult Physician Routine Consulting Provider: Enrico Hartman Consult Reason/Comments: Hyponatremia Do you want consulting provider notified?: Already Contacted 01/22/24 08:27 Consult Physician Routine Consulting Provider: Epifanio Hartmann Consult Reason/Comments: Brain metastases with recent SBRT and confusion with edema on imaging Do you want consulting provider notified?: Yes Primary care physician: Stated None Hospital Course: [address] [address] Progress Note - SOAP Patient Name: Thad Freeman Date of : 1960 Patient Status: Inpatient Attending Provider: Yue Humphrey Date: 01/28/24 10:27 Initialization Date: 01/28/24 10:27 Subjective Patient is a 63-year-old male with 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 Known left-sided weakness with left pupil dilatation. CT of the brain demonstrated 2.1 cm lesion enlarging from prior with worsening vasogenic edema and left midline shift. Had 1 seizure with EMS. Initial vital signs were remarkable for tachycardia with heart rate of 102 and blood pressure of 184/117. Initial laboratory analysis was remarkable for white blood cell count 11.5, hemoglobin 12.7, platelets 488, sodium 128. At that time ABG showed a pH of 7.16 with a pCO2 of 85. Additionally patient underwent CTA of the head and neck which showed no significant stenosis. Chest x-ray showed increasing interstitial density concerning for pulmonary vascular congestion with ongoing volume loss and extensive pleural opacity throughout the left hemithorax with left basilar Pleurx catheter in place. Patient was admitted to the ICU with breakthrough seizure. Patient had 1 seizure with EMS and 2 seizures in the emergency department the second requiring the use of Ativan to abort the seizure. Neurology and critical care were consulted. Consideration was made for transfer but it was found that there is no indication for medical transfer. Patient was started on Decadron 6 mg IV every 6 hours and Keppra 750 mg IV every 12 hours. Was started on BiPAP due to the ABG results which was weaned off by 01/19, was briefly on an insulin gtt. sodium noted to be downtrending. was placed on hypertonic briefly however transitioned to salt tablets/fluid restriction. Na level had remained stable in the 120 range. 01/26: noted to be agitated with labile mood yesterday. Did receive a dose of IM zyprexa yeterday afternoon and has been started on zyprexa nightly. blood gluc ose adequetely controlled with NPH. - Exam General: non toxic, no distress, male appears stated age, male. sittin in chair. Derm: warm, dry Head: atraumatic, normocephalic, symmetric Eyes: EOMI, no lid lag, anicteric sclera, pupils equal round reactive to light ENT: Nose and ears atraumatic, no thrush, no pharyngeal erythema Neck: No thyromegaly, no cervical lymphadenopathy, trachea midline, supple Mouth: no lip lesion, mucus membranes moist Cardiovascular: S1S2 reg, no murmur, positive posterior tibial pulse bilateral, no edema, capillary refill less than 2 seconds Lungs: clear to ascultation bilateral. there is a pleurex catheter on left anterior chest wall. Abdominal: soft, nontender to palpation, no guarding, no appreciable organomegaly, normal bowel sounds Ext: no ble edema Neuro: LUE and LLE motor strength 4/5+. RUE and RLE motor strength 5/5. gait not tested Psych: Calm and cooperative Objective - Vital Signs Vital signs: Vital Signs Temp 97.3 F L 01/28/24 07:13 Pulse 79 01/28/24 07:13 Resp 16 01/28/24 07:13 BP 118/69 01/28/24 07:13 Pulse Ox 99 01/28/24 07:13 FiO2 40 01/20/24 08:16 Intake & Output 01/27/24 01/28/24 01/28/24 18:59 06:59 18:59 Intake Total 240 240 Output Total 700 500 Balance -460 240 -500 Weight 60 kg Intake: Oral 240 240 Output: Urine 700 500 Stool 0 Other: Voiding Method External Catheter # Voids 2 1 # Bowel Movements 1 - Labs CBC & Chem 7: 01/28/24 02:56 01/27/24 12:02 Labs: Abnormal Lab Results - Last 24 Hours (Table) 01/27/24 01/27/24 01/27/24 Range/Units 11:39 12:02 17:19 WBC (4.50-10.00) X 10*3/uL RBC (4.40-5.60) X 10*6/uL Hgb (13.0-17.0) g/dL Hct (39.6-50.0) % RDW (11.5-14.5) % Plt Count (140-440) X 10*3/uL MPV (9.5-12.2) FL Glucose 485 H (74-99) mg/dL POC Glucose (mg/dL) >600 H* 188 H (70-110) mg/dL 01/27/24 01/27/24 01/28/24 Range/Units 20:21 23:06 02:56 WBC 10.28 H (4.50-10.00) X 10*3/uL RBC 3.64 L (4.40-5.60) X 10*6/uL Hgb 11.6 L (13.0-17.0) g/dL Hct 34.5 L (39.6-50.0) % RDW 17.3 H (11.5-14.5) % Plt Count 480 H (140-440) X 10*3/uL MPV 8.6 L (9.5-12.2) FL Glucose (74-99) mg/dL POC Glucose (mg/dL) 224 H 323 H (70-110) mg/dL 01/28/24 Range/Units 07:10 WBC (4.50-10.00) X 10*3/uL RBC (4.40-5.60) X 10*6/uL Hgb (13.0-17.0) g/dL Hct (39.6-50.0) % RDW (11.5-14.5) % Plt Count (140-440) X 10*3/uL MPV (9.5-12.2) FL Glucose (74-99) mg/dL POC Glucose (mg/dL) 268 H (70-110) mg/dL Assessment and Plan Assessment: #) Breakthrough seizure. This is likely 2/2 to right pareital occiptal brain m ass with vasogenic edema effacing the right lateral ventricle. Continue PO keppra 750 mg BID as antiepileptic. seizure precautions. no driving for 6 months. Continue dexamethasone 4 mg q6hr for vasogenic edema. Continue pantoprazole 40 mg daily as stress ulcer prophylaxis. Continue zyprexa nightly to help with agitation. 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 ?metastatic from left tongue. #) Hyponatremia - SIADH vs. less likely cerebral salt wasting. Previously on 3% on 01/21. Given noted dose of tolvaptan on January 24. Continue sodium chloride 1 g tablets. d/c fludrocortisone, less concerned about cerebral salt wasting #) Eurthyroid sick syndrome- continue tsh in 4-6 weeks outpatient. Continue home levothryoxine 176 mgcg daily #) Dm2 with steroid induced hyperglycemia. a1c of 8.2%. NPH 15 units twice daily with sliding scale insulin. Given dexamethasone has been decreased from 6 mg to 4 mg q6hr, his insulin requirements have been adjusted as such #) Anemia, likely multifactorial, continue to monitor hgb daily #) Acute hypercapnic respiratory failure, resolved #) advanced care planning- code status changed from full code to DNR, ok for intubation/mechanical ventilation. agreeable on 01/23 evening 01/27 Patient seen and examined at bedside Frustrated today regarding his fluid restriction Will discontinue fluid restriction Continue to monitor BMP daily Continue seizure precautions Continue steroids for parietal lobe lesion with vasogenic edema Continue Protonix for GI prophylaxis Rest of management unchanged DVT Ppx: SCds. s/p ivc filter. hold pharmacological dvt ppx for now given brain mets Anticipate discharge date: Tomorrow to [facility] today Anticipated discharge place: SNF 01/27 After discussion with pt and , they would like to be discharged home to be with his family They no longer want SNF placement Stable for discharge Time with Patient: Greater than 30 Patient Condition at Discharge: Serious Plan - Discharge Summary Discharge Rx Participant: Yes New Discharge Prescriptions: New levETIRAcetam [Keppra] 750 mg PO Q12HR 30 Days #60 tab dexAMETHasone [Decadron] 4 mg PO TID 30 Days #90 tablet Apixaban [Eliquis Starter Pack (for VTE)] 5 - 10 mg PO DIRECTED 30 Days #1 each Pantoprazole [Protonix] 40 mg PO DAILY #30 tab Miconazole 2% Cream [Monistat-Derm] 1 applic TOPICAL BID #15 gm Furosemide [Lasix] 20 mg PO DAILY #30 tab Melatonin 3 mg PO HS #30 tablet OLANZapine [ZyPREXA] 5 mg PO HS #30 tablet Sodium Chloride Tab 1 gm PO DAILY #30 tablet Continue Levothyroxine Sodium [Synthroid] 175 mcg PO DAILY Dorzolamide-Timol 2.23%/0.68% [Cosopt] 1 drop BOTH EYES BID Multivitamins, Thera [Multivitamin (formulary)] 1 tab PO DAILY Insulin Glargine,Hum.rec.anlog [Lantus Solostar Pen] 16 units SQ HS Discontinued Insulin Aspart [NovoLOG Flexpen] See Protocol SQ AC-TID HYDROcodone/APAP 10-325MG [Montrose 10-325] 1 tab PO Q6H PRN PRN Reason: Pain dexAMETHasone [Decadron] 4 mg PO TID 14 Days #42 tablet levETIRAcetam [Keppra] 750 mg PO BID 30 Days #60 tab Discharge Medication List Multivitamins, Thera [Multivitamin (formulary)] 1 tab PO DAILY 09/02/21 [History] Levothyroxine Sodium [Synthroid] 175 mcg PO DAILY 08/30/23 [History] Dorzolamide-Timol 2.23%/0.68% [Cosopt] 1 drop BOTH EYES BID 12/16/23 [History] Insulin Glargine,Hum.rec.anlog [Lantus Solostar Pen] 16 units SQ HS 12/16/23 [History] Apixaban [Eliquis Starter Pack (for VTE)] 5 - 10 mg PO DIRECTED 30 Days #1 each 01/28/24 [Rx] Furosemide [Lasix] 20 mg PO DAILY #30 tab 01/28/24 [Rx] Melatonin 3 mg PO HS #30 tablet 01/28/24 [Rx] Miconazole 2% Cream [Monistat-Derm] 1 applic TOPICAL BID #15 gm 01/28/24 [Rx] OLANZapine [ZyPREXA] 5 mg PO HS #30 tablet 01/28/24 [Rx] Pantoprazole [Protonix] 40 mg PO DAILY #30 tab 01/28/24 [Rx] Sodium Chloride Tab 1 gm PO DAILY #30 tablet 01/28/24 [Rx] dexAMETHasone [Decadron] 4 mg PO TID 30 Days #90 tablet 01/28/24 [Rx] levETIRAcetam [Keppra] 750 mg PO Q12HR 30 Days #60 tab 01/28/24 [Rx] Follow up Appointment(s)/Referral(s): None,Stated [Primary Care Provider] - 1-2 days Patient Instructions/Handouts: Lung Cancer (DC), Hyponatremia (DC), Brain Metastasis (DC) Discharge Disposition: HOME SELF-CARE Plan of Treatment: Pt and family are not interested in SNF Prefer to go home Cleared from nephro standpoint
== END 2024-01-28 14:39 | disposition home or self-care (01) | DRG 80 ==
LOC: EC 12:25 → 3SCARD 15:01 → 2SICU 15:38 → 3SCARD 01-23 14:02 → 5NMEDONC 01-27 15:47
PROVIDERS: ADMIT Internal Medicine; ATTEND Internal Medicine
PROC: 5A09357 Assistance with Respiratory Ventilation, Less than 24 Consecutive Hours, Continuous Positive Airway Pressure (ICD-10-PCS; principal; 2024-01-19)
DX: G93.6 Cerebral edema (principal); I26.99 Other pulmonary embolism without acute cor pulmonale; J96.02 Acute respiratory failure with hypercapnia; J96.01 Acute respiratory failure with hypoxia; C79.31 Secondary malignant neoplasm of brain; C78.02 Secondary malignant neoplasm of left lung; E22.2 Syndrome of inappropriate secretion of antidiuretic hormone; J90 Pleural effusion, not elsewhere classified; C77.1 Secondary and unspecified malignant neoplasm of intrathoracic lymph nodes; R41.4 Neurologic neglect syndrome; R56.9 Unspecified convulsions; Z66 Do not resuscitate; D50.9 Iron deficiency anemia, unspecified; E07.81 Sick-euthyroid syndrome; E03.9 Hypothyroidism, unspecified; E83.42 Hypomagnesemia; E86.1 Hypovolemia; H21.562 Pupillary abnormality, left eye; H40.9 Unspecified glaucoma; D75.838 Other thrombocytosis; Z96.89 Presence of other specified functional implants; R29.810 Facial weakness; Z85.810 Personal history of malignant neoplasm of tongue; E11.65 Type 2 diabetes mellitus with hyperglycemia; H53.462 Homonymous bilateral field defects, left side; T38.0X5A Adverse effect of glucocorticoids and synthetic analogues, initial encounter; Z79.4 Long term (current) use of insulin; Z79.890 Hormone replacement therapy; Z79.899 Other long term (current) drug therapy; Z86.73 Personal history of transient ischemic attack (TIA), and cerebral infarction without residual deficits; Z92.21 Personal history of antineoplastic chemotherapy; Z92.3 Personal history of irradiation
CPT/HCPCS: 36415; 36600; 70450; 70496; 70498; 70553; 71045; 74177; 80048; 80053; 80306; 81003; 82533; 82550; 82805; 82947; 83036; 83735; 83930; 83935; 84100; 84132; 84295; 84300; 84439; 84443; 85025; 85027; 85610; 85730; 93005; 94660; 96361; 96374; 96375; 99291

== ENCOUNTER → 2024-02-20 | Outpatient (CLI) | payer OTHER ==
[2024-02-20 13:53] LABS: African American GFR (CKD) >90 (>60 ml/min/1.73 sqM); Blood Urea Nitrogen 32 mg/dL (9-20); Non-African American GFR(CKD) 86 (>60 ml/min/1.73 sqM)
--- NOTE | 2024-02-20 14:58 | CT ---
EXAMINATION TYPE: CT chest w con DATE OF EXAM: 02/20/2024 2:47 PM COMPARISON: 12/15/2023, 09/21/2023 CLINICAL INDICATION: Male, 63 years old with history of C76.0 head and neck ca; TECHNIQUE: Multiple axial images were obtained through the chest. Sagittal and coronal reformats were created for review. MIP was performed on a separate workstation. Contrast used:100 mL of Isovue 370 with IV Contrast (None if empty) Oral contrast used: without Oral Contrast (None if empty) CT DLP: 199 mGycm, Automated exposure control for dose reduction was used. FINDINGS: LUNGS/ PLEURA: Decrease in pleural effusions compared to immediate prior 12/15/2023, there remains sm all right and trace left pleural effusion with Pleurx catheter in place on the left. Pleurx catheter tip terminating in appropriate position. Left anterior masslike consolidation now not as displaced as prior from prior large pleural effusion, consolidation thought to be slightly larger measuring 11.1 x 6.3 x 13.1 cm, previously 11.9 x 6.1 x 11.8 Redemonstration of scattered tiny sub-4 mm nodules throughout the lungs. Pleural thickening in the in ferior left lung base near the costophrenic angles not entirely in the [id number] but is thought t o remain present. Other areas of nodular thickening is also felt to be present in the left upper lung lateral aspecte series 3 image 20 AIRWAY: Patent and unremarkable. HEART: Size within normal limits. MEDIASTINUM: Prominent periaortic lymph node anteriorly measuring 8 mm series 3 image 45 previously 6 mm. Right paratracheal lymph node measuring 10 mm previously 18 mm. r epicardial fat lymph nodes anteriorly near the diaphragm in the left measuring up to 19 mm in short axis previously 18 mm. Prevascular space lymph node on the left measuring 11 mm previously 11 mm. VASCULATURE: No aortic aneurysm. No filling defect to suggest pulmonary embolus. MUSCULOSKELETAL: No acute osseous abnormalities SOFT TISSUES/LYMPH NODES: Unremarkable. LOWER NECK: No significant findings. UPPER ABDOMEN: Lymph node near the diaphragm measuring up to 14 mm previously thought to be 9 mm in s hort axis. IMPRESSION: 1. Left upper lung mass which is hard compared to prior given given change in the lung with decrease d left pleural effusion displacing the mass today's exam. The consolidation in the left upper lung is thought to be larger compared to prior in 12/15/2023. Pleural thickening near the inferior left lung and costophrenic angles partially out of the [id number], but there remains superior and inferior pleural thickening noted on the left. Lymph nodes throughout the mediastinum, some have decreased in size others have stayed stable and/or increased slightly in size. 2. Left upper abdomen lymph nodes just under the diaphragm on the left. The left adrenal gland may b e larger in size. 3. Left Pleurx catheter is in appropriate position. [facility], , 02/20/2024 2:55 PM
== END | disposition home or self-care (01) ==
LOC: RADCTMAIN 13:17
PROVIDERS: ATTEND Internal Medicine Hematology & Oncology
DX: C76.0 Malignant neoplasm of head, face and neck (principal); R91.8 Other nonspecific abnormal finding of lung field
CPT/HCPCS: 82565; 84520; 71260; 36415; Q9967

== ENCOUNTER 2024-03-11 19:47 | Emergency (ER) | payer OTHER ==
[2024-03-11 20:08] VITALS: RESP 18; TEMP 97.8
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
[2024-03-11 22:05] VITALS: BP 145/100; PULSE 96
== END 2024-03-11 22:05 | disposition home or self-care (01) ==
LOC: EC 19:47
DX: S00.93XA Contusion of unspecified part of head, initial encounter (principal); Y09 Assault by unspecified means
CPT/HCPCS: 99284